=== PATIENT | male | born 1965 | race Caucasian/White ===

== ENCOUNTER 2017-03-03 07:35 | Emergency (ER) | payer SELFPAY ==
[~2017-03-03] VITALS: Ht 180.3 cm; Wt 91.0 kg
[~2017-03-03 07:35] MED LIST: LORTA5 PO; Z.0.NO CURRENT MEDS
[2017-03-03 07:36] VITALS: BP 133/94; PULSE 113; RESP 18; TEMP 97.8; O2SAT 97
[2017-03-03] MEDS ORDERED: LISI10TA3 PO ×2 (07:59→09:16)
[2017-03-03] MEDS ORDERED: SODIUM CHLOR 0.9% 1000 ML INJ 1,000 ML IV SCH (08:08)
--- NOTE | 2017-03-03 08:12 | PD ---
HPI Chief Complaint: Abdominal Pain Time Seen by Provider: 08:03 Travel History International Travel<30 days: No Contact w/Intl Traveler<30days: No Traveled to known affect area: No History of Present Illness HPI The patient is a 52-year-old male who presents emergency department for multiple complaints. The patient states he has a history of hypertension and has been off of his lisinopril 10 mg daily for several weeks, is requesting a refill of his lisinopril. The patient also states that he has had a rash to the lower extremities from the knees inferiorly as well as the arms from the elbows distally that is pruritic. The patient has been applying over-the- counter Benadryl ointment without any alleviation of his symptoms. The patient does have a history of similar rash in the past which resolved with steroids. He denies any ingestion of any new medications, however, states he makes the rash worse. 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 He denies any nausea or vomiting, states his pain is improving. He denies any fever, chills, or sweats. Symptoms are moderate, alleviated in the past with steroids , and not alleviated with [id number] Benadryl cream. PFSH Past Medical History Cancer: Yes (leukemia) Cardiovascular Problems: Yes High Cholesterol: Yes Diminished Hearing: No Headaches: Yes Hypertension: Yes Neurologic: Yes (NEUROPATHY ) Respiratory: Yes (PNEUMOTHORAX ) Sleep Apnea: Yes (CPAP ) Past Surgical History Other Surgery: Yes (R chest tube placement ) Social History Alcohol Use: Yes (occas) Tobacco Use: Yes (1 pack /week) Substance Use: Yes (Marijuana ) Allergies-Medications (Allergen,Severity, Reaction): Coded Allergies: No Known Allergies (Unverified , 03/03/17) Reported Meds & Prescriptions Reported Meds & Active Scripts Active Reported Lisinopril 10 Mg Tab 10 Mg PO DAILY Review of Systems Except as stated in HPI: all other systems reviewed are Neg General / Constitutional: No: Fever HENT: No: Headaches Cardiovascular: No: Chest Pain or Discomfort Gastrointestinal: Positive: Abdominal Pain, No: Nausea, Vomiting Genitourinary: No: Dysuria Musculoskeletal: No: Myalgias, Arthralgias Skin: Positive Rash, Positive Itching Neurologic: No: Dizziness Physical Exam Narrative GENERAL: Awake, alert, pleasant 52-year-old male who appears his stated age and is in no acute respiratory distress. SKIN: Focused skin assessment warm/dry. The patient has a vesicular rash as located from the knees inferiorly and over the extensor surface of the forearms bilateral. No visible involvement of the face, abdomen, or back. HEAD: Atraumatic. Normocephalic. EYES: Pupils equal and round. No scleral icterus. No injection or drainage. ENT: No nasal bleeding or discharge. Mucous membranes pink and moist. NECK: Trachea midline. No JVD. CARDIOVASCULAR: Regular rate and rhythm. No murmur appreciated. RESPIRATORY: No accessory muscle use. Clear to auscultation. Breath sounds equal bilaterally. GASTROINTESTINAL: Abdomen soft, non-tender, nondistended. No rebound tenderness. Negative Rovsing's. Negative Hoover's. MUSCULOSKELETAL: No obvious deformities. No clubbing. No cyanosis. No edema. NEUROLOGICAL: Awake and alert. No obvious cranial nerve deficits. Motor grossly within normal limits. Normal speech. PSYCHIATRIC: Appropriate mood and affect; insight and judgment normal. Data Data Last Documented VS Vital Signs Date Time Temp Pulse Resp B/P Pulse Ox O2 Delivery O2 Flow Rate FiO2 03/03/17 07:36 97.8 113 18 133/94 97 Orders Complete Blood Count With Diff (03/03/17 08:08) Comprehensive Metabolic Panel (03/03/17 08:08) Lipase (03/03/17 08:08) Iv Access Insert/Monitor (03/03/17 08:08) Ecg Monitoring (03/03/17 08:08) Oximetry (03/03/17 08:08) Sodium Chlor 0.9% 1000 Ml Inj (Ns 1000 M (03/03/17 08:08) Sodium Chloride 0.9% Flush (Ns Flush) (03/03/17 08:15) Methylprednisolone So Succ Inj (Solumedr (03/03/17 08:15) Diphenhydramine Inj (Benadryl Inj) (03/03/17 08:15) Labs Laboratory Tests Test 03/03/17 08:25 White Blood Count 5.1 TH/MM3 Red Blood Count 3.82 MIL/MM3 Hemoglobin 13.1 GM/DL Hematocrit 38.1 % Mean Corpuscular Volume 99.7 FL Mean Corpuscular Hemoglobin 34.3 PG Mean Corpuscular Hemoglobin 34.4 % Concent Red Cell Distribution Width 15.7 % Platelet Count 249 TH/MM3 Mean Platelet Volume 7.9 FL Neutrophils (%) (Auto) 68.5 % Lymphocytes (%) (Auto) 20.7 % Monocytes (%) (Auto) 7.1 % Eosinophils (%) (Auto) 2.6 % Basophils (%) (Auto) 1.1 % Neutrophils # (Auto) 3.5 TH/MM3 Lymphocytes # (Auto) 1.1 TH/MM3 Monocytes # (Auto) 0.4 TH/MM3 Eosinophils # (Auto) 0.1 TH/MM3 Basophils # (Auto) 0.1 TH/MM3 CBC Comment DIFF FINAL Differential Comment Sodium Level 135 MEQ/L Potassium Level 4.2 MEQ/L Chloride Level 102 MEQ/L Carbon Dioxide Level 24.7 MEQ/L Anion Gap 8 MEQ/L Blood Urea Nitrogen 16 MG/DL Creatinine 1.21 MG/DL Estimat Glomerular Filtration 63 ML/MIN Rate Random Glucose 108 MG/DL Calcium Level 8.7 MG/DL Total Bilirubin 0.3 MG/DL Aspartate Amino Transf 33 U/L (AST/SGOT) Alanine Aminotransferase 56 U/L (ALT/SGPT) Alkaline Phosphatase 72 U/L Total Protein 7.6 GM/DL Albumin 3.7 GM/DL Lipase 110 U/L MDM Medical Decision Making Medical Screen Exam Complete: Yes Emergency Medical Condition: Yes Medical Record Reviewed: Yes Interpretation(s) Laboratory Tests Test 03/03/17 08:25 White Blood Count 5.1 TH/MM3 Red Blood Count 3.82 MIL/MM3 Hemoglobin 13.1 GM/DL Hematocrit 38.1 % Mean Corpuscular Volume 99.7 FL Mean Corpuscular Hemoglobin 34.3 PG Mean Corpuscular Hemoglobin 34.4 % Concent Red Cell Distribution Width 15.7 % Platelet Count 249 TH/MM3 Mean Platelet Volume 7.9 FL Neutrophils (%) (Auto) 68.5 % Lymphocytes (%) (Auto) 20.7 % Monocytes (%) (Auto) 7.1 % Eosinophils (%) (Auto) 2.6 % Basophils (%) (Auto) 1.1 % Neutrophils # (Auto) 3.5 TH/MM3 Lymphocytes # (Auto) 1.1 TH/MM3 Monocytes # (Auto) 0.4 TH/MM3 Eosinophils # (Auto) 0.1 TH/MM3 Basophils # (Auto) 0.1 TH/MM3 CBC Comment DIFF FINAL Differential Comment Sodium Level 135 MEQ/L Potassium Level 4.2 MEQ/L Chloride Level 102 MEQ/L Carbon Dioxide Level 24.7 MEQ/L Anion Gap 8 MEQ/L Blood Urea Nitrogen 16 MG/DL Creatinine 1.21 MG/DL Estimat Glomerular Filtration 63 ML/MIN Rate Random Glucose 108 MG/DL Calcium Level 8.7 MG/DL Total Bilirubin 0.3 MG/DL Aspartate Amino Transf 33 U/L (AST/SGOT) Alanine Aminotransferase 56 U/L (ALT/SGPT) Alkaline Phosphatase 72 U/L Total Protein 7.6 GM/DL Albumin 3.7 GM/DL Lipase 110 U/L Differential Diagnosis Differential diagnosis includes dermatitis, allergic reaction, heat rash, chronic abdominal pain, appendicitis, nephrolithiasis, atypical pancreatitis, chronic hypertension. Narrative Course IV was established, labs are drawn and sent, and the patient was placed on cardiac telemetry monitoring and continuous pulse oximetry monitoring. The patient was administered Solu-Medrol 125 mg intravenously and Benadryl 25 mg intravenously. Patient was also administered 1 L of IV fluids. The patient's abdominal labs are unremarkable. The patient was reevaluated at 9:13 AM, his symptoms had improved. I will write for the patient's lisinopril, Medrol Dosepak, and Benadryl. He is advised to follow-up with his primary physician and return if symptoms worsen or progress. Diagnosis Primary Impression: Dermatitis Additional Impressions: Hypertension Qualified Code: I10 - Essential hypertension Chronic abdominal pain Patient Instructions: General Instructions Additional Instructions: Medications as directed. Follow-up with a primary physician. Return if symptoms worsen or progress. Med/Other Pt SpecificInfo: Prescription(s) given Scripts Diphenhydramine 25 Mg Cap25 Mg PO Q6H PRN (ITCHING) #20 CAP Ref 0 Prov:Mathieu Robles MD 03/03/17 Methylprednisolone Dosepak (Medrol Dosepak)4 Mg Dspk4 Mg PO DIRECTED #1 DSPK Ref 0 Per Pharmacist direction Prov:Mathieu Robles MD 03/03/17 Lisinopril 10 Mg Tab10 Mg PO DAILY #30 TAB Ref 2 Prov:Mathieu Robles MD 03/03/17 Disposition: 01 DISCHARGE HOME Condition: Stable Mathieu Robles MD Mar 03, 2017 08:12
[2017-03-03] MEDS ORDERED: methylPREDNISolone SOD SUCC 125 MG/2 ML VIAL IV PUSH ONE (08:15)
[2017-03-03] MEDS ORDERED: diphenhydrAMINE HCL 50 MG/ML VIAL IV PUSH ONE (08:15)
[2017-03-03] MEDS ORDERED: SODIUM CHLORIDE 0.9% FLUSH 10 ML FLUSH IV FLUSH PRN (08:15)
[2017-03-03 08:45] LABS: AUTOMATED NEUTROPHIL # 3.5 TH/MM3 (1.8-7.7); BASOPHIL # 0.1 TH/MM3 (0-0.2); BASOPHIL % 1.1 % (0.0-2.0); EOSINOPHIL # 0.1 TH/MM3 (0-0.4); EOSINOPHIL % 2.6 % (0.0-4.0); HEMATOCRIT 38.1 % (39.0-51.0); HEMO FLAGS DIFF FINAL; LYMPH % 20.7 % (9.0-44.0); LYMPHOCYTE # 1.1 TH/MM3 (1.0-4.8); MEAN CELL VOLUME 99.7 FL (80.0-100.0); MEAN CORPUSCULAR HEMOGLOBIN 34.3 PG (27.0-34.0); MEAN CORPUSCULAR HGB CONC 34.4 % (32.0-36.0); MONO % 7.1 % (0.0-8.0); NEUT % 68.5 % (16.0-70.0); PLATELET COUNT 249 TH/MM3 (150-450); RED BLOOD COUNT 3.82 MIL/MM3 (4.50-5.90); RED CELL DISTRIBUTION WIDTH 15.7 % (11.6-17.2); WHITE BLOOD COUNT 5.1 TH/MM3 (4.0-11.0)
[2017-03-03 09:00] LABS: ANION GAP 8 MEQ/L (5-15); AST (GOT) 33 U/L (15-37); BICARBONATE 24.7 MEQ/L (21.0-32.0); BLOOD UREA NITROGEN 16 MG/DL (7-18); CHLORIDE 102 MEQ/L (98-107); GLOMERULAR FILTRATION RATE 63 ML/MIN (>89); POTASSIUM 4.2 MEQ/L (3.5-5.1); SODIUM (NA) 135 MEQ/L (136-145)
[2017-03-03 09:01] LABS: ALT (GPT) 56 U/L (12-78)
[2017-03-03 09:03] LABS: ALKALINE PHOSPHATASE 72 U/L (45-117); TOTAL BILIRUBIN ADULT 0.3 MG/DL (0.2-1.0)
[2017-03-03 09:15] VITALS: BP 173/94; PULSE 91; RESP 18; O2SAT 98
[2017-03-03] MEDS ORDERED: MEDR4PAK PO (09:16)
[2017-03-03] MEDS ORDERED: DIPH25CA PO (09:16)
== END 2017-03-03 09:40 | disposition home or self-care (01) ==
LOC: NEPE 07:35
DX: L30.9 Dermatitis, unspecified (principal); I10 Essential (primary) hypertension; R10.31 Right lower quadrant pain; G89.29 Other chronic pain; C95.91 Leukemia, unspecified, in remission; E78.00 Pure hypercholesterolemia, unspecified; Z72.0 Tobacco use; Z86.79 Personal history of other diseases of the circulatory system; Z86.69 Personal history of other diseases of the nervous system and sense organs; Z87.09 Personal history of other diseases of the respiratory system
CPT/HCPCS: 80053; 83690; 85025; 96374; 96375; 99284; J1200; J2930; J7030

== ENCOUNTER 2018-05-26 08:28 | Inpatient (IN) ==
[2018-05-26] MEDS ORDERED: Morphine Inj 4 MG/ML Vial IV.PUSH ONE ×2 (08:57→12:20)
[2018-05-26 09:39] LABS: Baso # (Auto) 0.1 th/mm3 (0.0-0.2); Baso % (Auto) 0.8 % (0.0-2.0); Eos % (Auto) 0.4 % (0.0-4.0); Hematocrit 36.1 % (39.0-51.0); Hemoglobin 12.3 gm/dL (13.0-17.0); Lymph # (Auto) 1.2 th/mm3 (1.0-4.8); Lymph % (Auto) 14.5 % (9.0-44.0); Mean Corpuscular HGB Conc 34.1 % (32.0-36.0); Mean Corpuscular Hemoglobin 36.1 pg (27.0-34.0); Mean Corpuscular Volume 105.8 fL (80.0-100.0); Mean Platelet Volume 10.2 fL (7.0-11.0); Mono # (Auto) 0.5 th/mm3 (0.0-0.9); Mono % (Auto) 6.3 % (0.0-8.0); Neut # (Auto) 6.4 th/mm3 (1.8-7.7); Platelet Count 143 th/mm3 (150-450); Red Blood Count 3.42 mil/mm3 (4.50-5.90); Red Cell Distribution Width 17.1 % (11.6-17.2); White Blood Count 8.2 th/mm3 (4.0-11.0)
[2018-05-26 09:58] LABS: Albumin 2.4 g/dL (3.4-5.0); Anion Gap 15 meq/L (5-15); Blood Urea Nitrogen 47 mg/dL (7-18); Calcium 7.9 mg/dL (8.5-10.1); Chloride 91 meq/L (98-107); Glomerular Filtration Rate 12 mL/min (>89); Glucose,Random 99 mg/dL (74-106); Sodium 126 meq/L (136-145)
[2018-05-26] MEDS ORDERED: HYDROmorphone PF Inj 2 MG/ML Vial IV.PUSH ONE (09:59)
--- NOTE | 2018-05-26 10:11 | XR ---
EXAM DATE: 05/26/2018 9:30 AM EDT AGE/SEX: 53 years / Male INDICATIONS: Internal painful hemorrhoids, . CLINICAL DATA: This is the patient's initial encounter. Patient reports that signs and symptoms have been present for 2 days and indicates a pain score of 10/10. MEDICAL/SURGICAL HISTORY: . . COMPARISON: No prior exams available for comparison. FINDINGS: Multiple AP views of the chest demonstrate the lungs to be symmetrically aerated without evidence of mass, infiltrate or effusion. The cardiomediastinal contours are unremarkable. Old left posterior si xth through eighth rib fractures.. CONCLUSION: No acute cardiopulmonary disease. Electronically signed by: Man Oscar MD 05/26/2018 10:09 AM EDT
[2018-05-26 10:15] LABS: Alanine Aminotransferase 1105 U/L (12-78); Alkaline Phosphatase 476 U/L (45-117); Aspartate Aminotransferase 4041 U/L (15-37)
[2018-05-26] MEDS ORDERED: Sod Chloride 0.9% Inj 1,000 ML IV.SIG ONE (10:55)
--- NOTE | 2018-05-26 11:17 | CT ---
EXAM DATE: 05/26/2018 11:12 AM EDT AGE/SEX: 53 years / Male INDICATIONS: Nausea, vomiting. Proctalgia. CLINICAL DATA: This is the patient's initial encounter. Patient reports that signs and symptoms have been present for 1 day and indicates a pain score of 3/10. MEDICAL/SURGICAL HISTORY: Diverticulosis. Hyperparathyroidism. Leukemia. Enlarged prostate . Hernia repair RADIATION DOSE: 11.71 CTDI (mGy) COMPARISON: [facility] [place], CT ABDOMEN & PELVIS W/O CONTRAST, 05/19/2018. . TECHNIQUE: Multiple contiguous axial images were obtained through the abdomen. Images were obtained using multiple row detector helical technique. Using automated exposure control and adjustment of the mA and/or kV according to patient size, radiation dose was kept as low as reasonably achievable to o btain optimal diagnostic quality images. DICOM format image data is available electronically for rev iew and comparison. FINDINGS: Lung bases are clear. Osseous structures are intact. Diffuse episodic calcification of the aorta and iliac vessels are seen and there is coronary artery calcification. Hepatomegaly and diffuse decreased density of the liver characteristic of steatosis. Gallbladder, spleen, pancreas, adrenal glands, lef t kidney are unremarkable. Right renal calculus, nonobstructing at the midpole. No adenopathy. Urinar y bladder and prostate are unremarkable. There is bowel wall thickening and mild pericolonic inflamma tory stranding of the sigmoid colon extending over 10 cm. There is severe diverticulosis of the sigmo id and descending colon. CONCLUSION: 1. Sigmoid diverticulitis. 2. Hepatic steatosis. 3. Right renal calculus. Electronically signed by: Jordy Grove MD 05/26/2018 11:16 AM EDT
[2018-05-26] MEDS ORDERED: Ciprofloxacin 400 MG/200 ML 400 MG/200 ML PIGGYBACK IV.SIG ONE (12:42)
[2018-05-26] MEDS ORDERED: Bisacodyl 10 MG Supp RECTAL PRN (12:43)
[2018-05-26] MEDS ORDERED: Acetaminophen 325 MG Tablet PO PRN (12:43)
[2018-05-26] MEDS ORDERED: Morphine Inj 4 MG/ML Vial IV.PUSH PRN ×2 (12:46)
[2018-05-26] MEDS ORDERED: Naloxone Inj 0.4 MG/ML Vial IV.PUSH PRN (12:46)
[2018-05-26] MEDS ORDERED: Morphine Sulfate Inj 2 MG/ML Vial IV.PUSH PRN (12:46)
[2018-05-26] MEDS ORDERED: Haloperidol Inj 5 MG/ML Ampul IV.PUSH PRN (12:52)
[2018-05-26] MEDS ORDERED: LORazepam 1 MG Tablet PO PRN (12:52)
--- NOTE | 2018-05-26 13:08 | ECG ---
Date Performed: 05/26/2018 Time Performed: 09:13:39 PTAGE: 53 years EKG: ATRIAL FIBRILLATION WITH RAPID VENTRICULAR RESPONSE POSSIBLE RIGHT VENTRICULAR HYPERTROPHY SEPTAL MYOCARDIAL INFARCTION ABNORMAL ECG NO PREVIOUS TRACING DOCTOR: Naseem Velazquez Interpretating Date/Time 05/26/2018 13:05:40
[2018-05-26] MEDS ORDERED: Sod Chloride 0.9% Inj 1,000 ML IV.CONT SCH (14:00)
--- NOTE | 2018-05-26 14:03 | US ---
EXAM DATE: 05/26/2018 1:48 PM EDT AGE/SEX: 53 years / Male INDICATIONS: Increased Bun and Creatinine. CLINICAL DATA: This is the patient's initial encounter. Patient reports that signs and symptoms have been present for 1 day and indicates a pain score of 0/10. MEDICAL/SURGICAL HISTORY: . ETOH. Diverticulosis. Enlarged prostate. Hemorrhoids. HTN. Hype rcholesterolemia. Leukemia. . Hernia repair. COMPARISON: [facility] – [place], CT ABDOMEN & PELVIS W/O CONTRAST, 05/26/2018. . MEASUREMENTS: Right Kidney:__10.2 x 5.7 x 6.5 cm Left Kidney:__11.6 x 5.5 x 6.0 cm FINDINGS: Right Kidney: The kidney is normal in size and shape. Normal echotexture. No hydronephrosis. No corti cordelia thinning. 6 mm echogenic focus with shadowing consistent with a stone within the midpole. Left Kidney: Normal echotexture and cortical thickness. No mass or hydronephrosis. Bladder: The bladder is totally decompressed and not well evaluated.. Other: None. CONCLUSION: 1. Small nonobstructing right renal stone. Otherwise, unremarkable exam. Electronically signed by: Man Oscar MD 05/26/2018 2:02 PM EDT
--- NOTE | 2018-05-26 14:05 | ED ---
HPI General Chief complaint: Nausea/Vomiting/Diarrhea Stated complaint: Pain Time Seen by Provider: 05/26/18 08:43 Source: patient Mode of arrival: ambulatory Limitations: no limitations History of Present Illness HPI Narrative: Patient is a 53-year-old male presented with complaint of nausea vomiting diarrhea as well as rectal pain due to hemorrhoids. He stated that at this has been happening for the past couple of days. He is also a daily drinker. He was seen on 05/19/18 for sigmoid diverticulitis., He is a smoker and still drinks daily. He has history of BPH, leukemia, HLD, HTN. The patient is a daily drinker. MD complaint: nausea, vomiting, diarrhea and abdominal pain Onset (ago): week(s) (1) Associated Abdominal Pain: Yes Location of pain: other (rectal) Severity: severe Severity scale (1-10): 10 Quality: sharp Pain Consistency: constant Relieving factors: none Context: other (alcohol abuse) Related Data Home Medications Medication Instructions Recorded Confirmed atorvastatin 80 mg PO DAILY 04/30/18 05/26/18 lisinopril 10 mg PO DAILY 04/30/18 05/26/18 Allergies Allergy/AdvReac Type Severity Reaction Status Date / Time No Known Allergies Allergy Unverified 05/26/18 08:51 Review of Systems ROS: all other systems reviewed are negative Musculoskeletal Comments: Swelling of both his lower legs PMFSH Medical History Medical History Hairy cell leukemia (Acute) Alcohol abuse (Acute) Diverticulosis (Acute) Enlarged prostate (Acute) HTN (hypertension) (Acute) Hemorrhoids (Acute) Hypercholesterolemia (Acute) Leukemia (Acute) Sleep apnea (Acute) Smoker (Acute) Surgical History Surgical History History of hernia repair (Acute) Family History Family History Other Family history of hypertension Social History Social History Substance History: No History of Abuse Second Hand Smoke Exposure: No Smoking Status: Current every day smoker Tobacco Type: Cigarettes How Often Do You Have a Drink Containing Alcohol: 2 to 3 times a week Hx Recent Travel: No Recent Travel in [facility] within the Last 8 Weeks: No Recent Out of Country Travel within the Last 8 Weeks: No Immunization History Tetanus Immunization: Unsure Hx Influenza Vaccine This Season: No Exam Narrative Exam Narrative: GENERAL: Alert and oriented in moderate distress from pain. Thrashing around in the bed holding his rectum SKIN: Focused skin assessment warm/dry. HEAD: Atraumatic. Normocephalic. EYES: Pupils equal and round. No scleral icterus. No injection or drainage. ENT: No nasal bleeding or discharge. Mucous membranes pink and moist. NECK: Trachea midline. No JVD. CARDIOVASCULAR: Irregularly irregular heart rate suggestive of atrial fibrillation. No murmur appreciated. RESPIRATORY: No accessory muscle use. Clear to auscultation. Breath sounds equal bilaterally. GASTROINTESTINAL: Abdomen soft, non-tender, nondistended. Hepatic and splenic margins not palpable. Rectal exam did not reveal any external hemorrhoids. Patient very tender to palpation. He did have stool around the rectum that was evaluated for occult blood and it was negative. Unable to do a complete rectal exam patient was not able to tolerate. MUSCULOSKELETAL: No obvious deformities. No clubbing. No cyanosis. Bilateral 2 + pitting edema in lower extremities stops at the knees. NEUROLOGICAL: Awake and alert. No obvious cranial nerve deficits. Motor grossly within normal limits. Normal speech. PSYCHIATRIC: Appropriate mood and affect; insight and judgment normal. Course Hospital Course: Patient received several doses of IV narcotics for analgesia. He did not appear to have any external hemorrhoids that were thrombosed. His all occult was negative. We did have positive CT for diverticulitis acute for which he received Cipro and Flagyl IV. Markedly elevated LFTs as well as kidney function suggestive of AK I for which he has been hydrated. We suspect that all this secondary to alcohol abuse poor nutrition noncompliance. Tox screen recently was negative and was not repeated. Supposed to the patient had a renal ultrasound that that was unremarkable a few days ago. Initial Documented Vital Signs Temperature 97.2 F L 05/26/18 08:31 Pulse Rate 109 H 05/26/18 08:31 Respiratory Rate 18 05/26/18 08:31 Blood Pressure 106/62 05/26/18 08:31 Pulse Oximetry 98 05/26/18 08:31 Last Documented Vital Signs Temperature 98.2 F 05/26/18 11:26 Pulse Rate 107 H 05/26/18 11:26 Respiratory Rate 22 05/26/18 12:59 Blood Pressure 114/60 05/26/18 11:26 Pulse Oximetry 99 05/26/18 11:26 Medical Decision Making MDM Narrative Medical decision making narrative: Patient with sigmoid diverticulitis, markedly elevated LFTs and renal failure with elevated creatinine. In addition the patient was in new onset atrial fibrillation. We will admitted for antibiotic treatment for his diverticulitis as well as hydration for his kidney failure. He had an ultrasound recently and was told that everything was negative. He has elevated troponin without any complaint of chest pain and EKG not suggestive of acute ischemia likely secondary to his renal failure. Patient did not receive any antidysrhythmic since he was able to maintain heart rate between the low 90s in the low 100s. Remained hemodynamically stable and not septic. Denied any chest pain Medical Screen Exam Complete: Yes Emergency Medical Condition: Yes Medical Records Medical records reviewed: Yes I reviewed the patient's medical records. Lab Data Lab results reviewed: Yes I reviewed the patient's lab results. Result diagrams: 05/26/18 09:03 05/26/18 09:03 Lab Results 05/26/18 05/26/18 05/26/18 Range/Units 09:03 09:03 13:02 WBC 8.2 (4.0-11.0) th/mm3 RBC 3.42 L (4.50-5.90) mil/mm3 Hgb 12.3 L (13.0-17.0) gm/dL Hct 36.1 L (39.0-51.0) % MCV 105.8 H (80.0-100.0) fL MCH 36.1 H (27.0-34.0) pg MCHC 34.1 (32.0-36.0) % RDW 17.1 (11.6-17.2) % Plt Count 143 L (150-450) th/mm3 MPV 10.2 (7.0-11.0) fL Neut % (Auto) 78.0 H (16.0-70.0) % Lymph % (Auto) 14.5 (9.0-44.0) % [place] % (Auto) 6.3 (0.0-8.0) % Eos % (Auto) 0.4 (0.0-4.0) % Baso % (Auto) 0.8 (0.0-2.0) % Neut # (Auto) 6.4 (1.8-7.7) th/mm3 Lymph # (Auto) 1.2 (1.0-4.8) th/mm3 [place] # (Auto) 0.5 (0.0-0.9) th/mm3 Eos # (Auto) 0.0 (0.0-0.4) th/mm3 Baso # (Auto) 0.1 (0.0-0.2) th/mm3 WBC Differential . Differential Comment Auto diff final Sodium 126 L (136-145) meq/L Potassium 5.0 (3.5-5.1) meq/L Chloride 91 L (98-107) meq/L Carbon Dioxide 20.0 L (21.0-32.0) meq/L Anion Gap 15 (5-15) meq/L BUN 47 H (7-18) mg/dL Creatinine 5.23 H (0.60-1.30) mg/dL Estimated GFR 12 L (>89) mL/min Random Glucose 99 (74-106) mg/dL Calcium 7.9 L (8.5-10.1) mg/dL Total Bilirubin 6.6 H (0.2-1.0) mg/dL AST 4041 H (15-37) U/L ALT 1105 H (12-78) U/L Alkaline Phosphatase 476 H (45-117) U/L Total Creatine Kinase 660459 H (39-308) U/L CK-MB (CK-2) 155.6 H (0.5-3.6) ng/mL CK-MB (CK-2) % 0.1 (0.0-4.0) % Troponin I 0.20 H 0.21 H (0.02-0.05) ng/mL B-Natriuretic Peptide (0-100) pg/mL Total Protein 7.0 (6.4-8.2) g/dL Albumin 2.4 L (3.4-5.0) g/dL TSH 3.300 (0.358-3.740) uIU/mL Serum Alcohol Less than 3 (0-5) mg/dL 05/26/18 Range/Units 13:09 WBC (4.0-11.0) th/mm3 RBC (4.50-5.90) mil/mm3 Hgb (13.0-17.0) gm/dL Hct (39.0-51.0) % MCV (80.0-100.0) fL MCH (27.0-34.0) pg MCHC (32.0-36.0) % RDW (11.6-17.2) % Plt Count (150-450) th/mm3 MPV (7.0-11.0) fL Neut % (Auto) (16.0-70.0) % Lymph % (Auto) (9.0-44.0) % [place] % (Auto) (0.0-8.0) % Eos % (Auto) (0.0-4.0) % Baso % (Auto) (0.0-2.0) % Neut # (Auto) (1.8-7.7) th/mm3 Lymph # (Auto) (1.0-4.8) th/mm3 [place] # (Auto) (0.0-0.9) th/mm3 Eos # (Auto) (0.0-0.4) th/mm3 Baso # (Auto) (0.0-0.2) th/mm3 WBC Differential Differential Comment Sodium (136-145) meq/L Potassium (3.5-5.1) meq/L Chloride (98-107) meq/L Carbon Dioxide (21.0-32.0) meq/L Anion Gap (5-15) meq/L BUN (7-18) mg/dL Creatinine (0.60-1.30) mg/dL Estimated GFR (>89) mL/min Random Glucose (74-106) mg/dL Calcium (8.5-10.1) mg/dL Total Bilirubin (0.2-1.0) mg/dL AST (15-37) U/L ALT (12-78) U/L Alkaline Phosphatase (45-117) U/L Total Creatine Kinase (39-308) U/L CK-MB (CK-2) (0.5-3.6) ng/mL CK-MB (CK-2) % (0.0-4.0) % Troponin I (0.02-0.05) ng/mL B-Natriuretic Peptide 60 (0-100) pg/mL Total Protein (6.4-8.2) g/dL Albumin (3.4-5.0) g/dL TSH (0.358-3.740) uIU/mL Serum Alcohol (0-5) mg/dL Imaging Data Radiologist's impression: Abdomen/Bladder Ultrasound 05/26/18 00:00 CONCLUSION: 1. Small nonobstructing right renal stone. Otherwise, unremarkable exam. Chest X-Ray 05/26/18 08:55 CONCLUSION: No acute cardiopulmonary disease. Abdomen/Pelvis CT 05/26/18 10:54 CONCLUSION: 1. Sigmoid diverticulitis. 2. Hepatic steatosis. 3. Right renal calculus. ECG Data Attestation: I personally reviewed and interpreted this ECG as follows: Interpretation: Atrial fibrillation with RVR rate of 120, right ventricular hypertrophy normal axis. No STEMI QTc 381 Discharge Plan Discharge Disposition Patient Disposition: 30 Still Patient Discharge Condition Condition: Serious Discharge Details Diagnosis: Diverticulitis, Acute renal failure, Transaminitis, Alcohol abuse, Elevated troponin Physicians Team ED Provider: Yung Moore Attending Provider: Moise Mazariegos Other Providers: Don Dior ; Emre Velazquez Discharge Interventions Interventions: ED Discharge Assessment Last Done: 05/26/18 15:07 Vital Signs Last Done: 05/26/18 11:26 Status ED Status: Left Department Discharge Information Discharge Date/Time: 05/26/18 15:08
[2018-05-26 14:15] LABS: Troponin I 0.21 ng/mL (0.02-0.05)
[2018-05-26] MEDS: Multivitamin/Minerals Therapeutic Tablet PO SCH (15:40)
[2018-05-26] MEDS: Folic Acid 1 MG Tablet PO SCH (15:40)
--- NOTE | 2018-05-26 16:03 | P.HPIM ---
History of Present Illness Service: [facility] Primary Care Physician: [facility] Chief Complaint: NAUSEA AND VOMITING AND DIARRHEA History of Present Illness: Patient is a 53-year-old male who presented to the hospital with complaints of nausea and vomiting and diarrhea as well as rectal pain due to his hemorrhoids. He states this been happening for the past couple of days to a week. He is also a daily alcohol drinker. Was seen here on May 19 for sigmoid diverticulitis. He is a smoker and drinks daily. 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 Was also found to have elevated LFTs and to be in renal failure. Therefore patient will be admitted and will be treated for the diverticulitis, the renal failure, and the rectal pain. His lisinopril and Lipitor will both be held. We will consult nephrology. Patient is also noted to have elevated troponins. Suspect secondary to the renal failure. But will consult cardiology and get an echocardiogram. We will also trend troponins and cardiac enzymes Has already had an ultrasound of his kidneys bilaterally Inpatient Certification: I certify that the inpatient services were ordered in accordance with Medicare regulations governing the order. This includes certification that hospital inpatient services are reasonable and necessary and in the case of services not specified as inpatient-only under 42 CFR 419.22(n), that they are appropriately provided as inpatient services in accordance to with the 2-midnight benchmark under 43 CFR 412.3(e) Estimated Total Length of Stay (Days): 5 Plans for Post Hospital Care: Not yet determined Review of Systems All other systems reviewed negative except as stated in HPI [facility] - History History Provided By: Patient - Medical History Medical History: Medical History (Last Updated 05/26/18 @ 15:50 by Moise Mazariegos DO) Hairy cell leukemia Alcohol abuse Diverticulosis Enlarged prostate HTN (hypertension) Hemorrhoids Hypercholesterolemia Leukemia Sleep apnea Smoker - Surgical History Surgical History: Surgical History (Last Reviewed 05/26/18 @ 14:02 by Yung Moore DO) History of hernia repair - Family History Family History: Family History (Last Updated 05/26/18 @ 15:50 by Moise Mazariegos DO) Other Family history of hypertension - Tobacco History Second Hand Smoke Exposure: No Tobacco Use In Past 30 Days: Yes Smoking Status: Current every day smoker Tobacco Type: Cigarettes - Alcohol History How Often Do You Have a Drink Containing Alcohol: 2 to 3 times a week - Substance Use History Substance History: No History of Abuse - Travel History History of Recent Travel: No Recent Travel in the [place] Within the Last 8 Weeks: No Recent Travel Out of the Country Within the Last 8 Weeks: No - Immunization History Tetanus Immunization: Unsure Hx Influenza Vaccine This Season: No Medications and Allergies Active Medications: Active Medications Acetaminophen (Tylenol) 650 mg PO Q4H PRN PRN Reason: Temp > 100.4 Al Hydroxide/Mg Hydroxide (Milk Of Magnesia Liq) 30 ml PO Q12H PRN PRN Reason: Mild Constipation Bisacodyl (Dulcolax Supp) 10 mg RECTAL DAILY PRN PRN Reason: SEVERE CONSITIPATION Clonidine HCl (Catapres) 0.1 mg PO Q6H PRN PRN Reason: For SBP >/= 180, DBP >/= 100 Flumazenil (Romazecon Inj) 0.2 mg IV.PUSH Q1M PRN PRN Reason: OVERSEDATION Folic Acid (Folic Acid) 1 mg PO DAILY [facility] Stop: 05/31/18 14:59 Last Admin: 05/26/18 15:40 Dose: 1 mg Haloperidol Lactate (Haldol Inj) 1 mg IV.PUSH Q15M PRN PRN Reason: for severe agitation Hydrocortisone Acetate (Hemorrhoidal Hc Supp) 25 mg RECTAL TID [facility]I Sodium Chloride (Ns Inj) 1,000 mls @ 100 mls/hr IV.CONT .Q10H [facility]I Last Admin: 05/26/18 14:26 Dose: 100 mls/hr Ciprofloxacin/Dextrose (Cipro 200 Mg/100 Ml Inj) 200 mg in 100 mls @ 100 mls/ hr IV.SIG Q24H [facility]I Metronidazole/Sodium Chloride (Flagyl 500 Mg Inj) 100 mls @ 100 mls/hr IV.SIG Q8H [facility]I Stop: 06/05/18 21:59 Lactulose (Lactulose Liq) 30 ml PO DAILY PRN PRN Reason: SEVERE CONSITIPATION Lorazepam (Ativan) 1 mg PO Q4H PRN PRN Reason: for CIWA 8-10 Lorazepam (Ativan) 2 mg PO Q2H PRN PRN Reason: for CIWA 11-14 Lorazepam (Ativan Inj) 2 mg IV.PUSH Q2H PRN PRN Reason: for CIWA 11-14 Lorazepam (Ativan Inj) 2 mg IV.PUSH Q1H PRN PRN Reason: for CIWA 15-20 Lorazepam (Ativan Inj) 2 mg IV.PUSH Q15M PRN PRN Reason: for CIWA > 20 Lorazepam (Ativan Inj) 1 mg IV.PUSH Q4H PRN PRN Reason: for CIWA 8-10 Morphine Sulfate (Morphine Inj) 4 mg IV.PUSH Q3H PRN PRN Reason: PAIN 6-10;IF UNABLE TO TAKE PO Morphine Sulfate (Morphine Inj) 4 mg IV.PUSH Q3H PRN PRN Reason: BREAKTHROUGH PAIN Morphine Sulfate (Morphine Inj) 2 mg IV.PUSH Q3H PRN PRN Reason: PAIN 3-5; IF UABLE TO TAKE PO Multivitamins/Minerals (Theragran-M) 1 tab PO DAILY [facility] Stop: 05/31/18 13:59 Last Admin: 05/26/18 15:40 Dose: 1 tab Naloxone HCl (Narcan Inj) 0.4 mg IV.PUSH UNSCH PRN PRN Reason: SEE LABEL COMMENTS Nicotine (Habitrol 14 Mg Patch.24 Hr) 1 patch T-DERMAL DAILY [facility] Last Admin: 05/26/18 15:40 Dose: 1 patch Ondansetron HCl (Zofran Inj) 4 mg IV.PUSH Q6H PRN PRN Reason: NAUSEA OR VOMITING Oxycodone HCl (Roxicodone) 5 mg PO Q4H PRN PRN Reason: PAIN SCALE 3 TO 5 Oxycodone HCl (Roxicodone) 10 mg PO Q4H PRN PRN Reason: PAIN SCALE 6 TO 10 Pantoprazole Sodium (Protonix) 40 mg PO DAILY [facility] Last Admin: 05/26/18 15:39 Dose: 40 mg Patch Removal (Remove Old Patch) 1 each T-DERMAL DAILY [facility] Senna/Docusate Sodium (Najma-Colace) 1 tab PO BID [facility] Sennosides (Senokot) 17.2 mg PO Q12H PRN PRN Reason: Moderate Constipation Thiamine HCl (Vitamin B1) 100 mg PO DAILY [facility] Last Admin: 05/26/18 15:40 Dose: 100 mg Zolpidem Tartrate (Ambien) 5 mg PO HS PRN PRN Reason: INSOMNIA Allergies Allergy/AdvReac Type Severity Reaction Status Date / Time No Known Allergies Allergy Unverified 05/26/18 08:51 Home Medications Medication Instructions Recorded Confirmed Type atorvastatin 80 mg PO DAILY 04/30/18 05/26/18 History lisinopril 10 mg PO DAILY 04/30/18 05/26/18 History Exam Vital signs: Vital Signs 05/26/18 08:31 05/26/18 11:24 05/26/18 11:26 Temperature 97.2 F L 98.2 F Pulse Rate 109 H 107 H Respiratory Rate 18 19 19 Blood Pressure 106/62 114/60 Pulse Oximetry 98 99 05/26/18 12:59 Temperature Pulse Rate Respiratory Rate 22 Blood Pressure Pulse Oximetry Intake & Output 05/25/18 05/26/18 05/26/18 18:59 06:59 18:59 Intake Total 1200 / 1200 Balance 1200 / 1200 Weight 97.522 kg Intake: IV 1200 / 1200 Cipro 400 MG/200 ML Inj 400 mg 200 / 200 In 200 ml @ 200 mls/hr IV.SIG ONCE ONE Rx#:[id number] NS Inj 1,000 ML @ Wide Open IV. 1000 / 1000 SIG BOLUS ONE Rx#:[id number] Narrative: GENERAL: Awake alert and oriented x3 talkative and cooperative SKIN: Warm and dry. HEAD: Atraumatic. Normocephalic. EYES: Pupils equal and round. No scleral icterus. No injection or drainage. EOMI ENT: No nasal bleeding or discharge. Mucous membranes pink and moist. Tongue is midline NECK: Trachea midline. No JVD. Supple CARDIOVASCULAR: Regular rate and rhythm. S1-S2 no S3 or S4 RESPIRATORY: No accessory muscle use. Clear to auscultation. Breath sounds equal bilaterally. GASTROINTESTINAL: Abdomen soft, non-tender, nondistended. Hepatic and splenic margins not palpable. Obese MUSCULOSKELETAL: Extremities without clubbing, cyanosis, or edema. No obvious deformities. NEUROLOGICAL: Awake and alert. No obvious cranial nerve deficits. Motor grossly within normal limits. Five out of 5 muscle strength in the arms and legs. Normal speech. PSYCHIATRIC: Appropriate mood and affect; insight and judgment normal. Results - Labs CBC & Chem 7: 05/26/18 09:03 05/26/18 09:03 Labs: Short CBC 05/26/18 Range/Units 09:03 WBC 8.2 (4.0-11.0) th/mm3 Hgb 12.3 L (13.0-17.0) gm/dL Hct 36.1 L (39.0-51.0) % Plt Count 143 L (150-450) th/mm3 BMP 05/26/18 09:03 Sodium 126 L Potassium 5.0 Chloride 91 L Carbon Dioxide 20.0 L BUN 47 H Creatinine 5.23 H Calcium 7.9 L Cardiac Enzymes 05/26/18 05/26/18 Range/Units 09:03 13:02 Troponin I 0.20 H 0.21 H (0.02-0.05) ng/mL Liver Function 05/26/18 Range/Units 09:03 Total Bilirubin 6.6 H (0.2-1.0) mg/dL AST 4041 H (15-37) U/L ALT 1105 H (12-78) U/L Alkaline Phosphatase 476 H (45-117) U/L Albumin 2.4 L (3.4-5.0) g/dL - Imaging Impressions Abdomen/Bladder Ultrasound 05/26/18 00:00 CONCLUSION: 1. Small nonobstructing right renal stone. Otherwise, unremarkable exam. Chest X-Ray 05/26/18 08:55 CONCLUSION: No acute cardiopulmonary disease. Abdomen/Pelvis CT 05/26/18 10:54 CONCLUSION: 1. Sigmoid diverticulitis. 2. Hepatic steatosis. 3. Right renal calculus. Caprini VTE Risk Assessment Caprini VTE Risk Assessment: Moderate/High Risk (score >= 2) Caprini Risk Assessment Model: Point Value = 1 Point Value = 2 Point Value = 3 Point Value = 5 Age 41-60 Minor surgery BMI > 25 kg/m2 Swollen legs Varicose veins or History of unexplained or recurrent spontaneous Oral contraceptives or hormone replacement Sepsis (< 1 month) Serious lung disease, including pneumonia (< 1 month) Abnormal pulmonary function Acute myocardial infarction Congestive heart failure (< 1 month) History of inflammatory bowel disease Medical patient at bed rest Age 61-74 Arthroscopic surgery Major open surgery (> 45 min) Laparoscopic surgery (> 45 min) Malignancy Confined to bed (> 72 hours) Immobilizing plaster cast Central venous access Age >= 75 History of VTE Family history of VTE Factor V Leiden Prothrombin [id number] Lupus anticoagulant Anticardiolipin antibodies Elevated serum homocysteine Heparin-induced thrombocytopenia Other congenital or acquired thrombophilia Stroke (< 1 month) Elective arthroplasty Hip, pelvis, or leg fracture Acute spinal cord injury (< 1 month) Prophylaxis Regimen: Total Risk Factor Score Risk Level Prophylaxis Regimen 0-1 Low Early ambulation 2 Moderate Order ONE of the following: *Sequential Compression Device (SCD) *Heparin 5000 units SQ BID 3-4 Higher Order ONE of the following medications: *Heparin 5000 units SQ TID *Enoxaparin/Lovenox 40 mg SQ daily (WT < 150 kg, CrCl > 30 mL/min) *Enoxaparin/Lovenox 30 mg SQ daily (WT < 150 kg, CrCl > 10-29 mL/min) *Enoxaparin/Lovenox 30 mg SQ BID (WT < 150 kg, CrCl > 30 mL/min) AND/OR *Sequential Compression Device (SCD) 5 or more Highest Order ONE of the following medications: *Heparin 5000 units SQ TID (Preferred with Epidurals) *Enoxaparin/Lovenox 40 mg SQ daily (WT < 150 kg, CrCl > 30 mL/min) *Enoxaparin/Lovenox 30 mg SQ daily (WT < 150 kg, CrCl > 10-29 mL/min) *Enoxaparin/Lovenox 30 mg SQ BID (WT < 150 kg, CrCl > 30 mL/min) AND *Sequential Compression Device (SCD) Assessment and Plan - Plan Diverticulitis will continue on Cipro 400 mg IV daily due to renal functions and Flagyl 500 mg IV every 8 hours -Pain control with morphine and oxycodone -Clear liquid diet Acute renal failure -Continue on IV fluids -Renal ultrasounds have been done no obstruction -Hold on NEPHROtoxic agents -Nephrology consult -Hold his lisinopril Elevated LFTs -Check hepatitis panel -Possibly due to his excessive amount of alcohol -Hold his Lipitor 80 mg daily Hypertension -Catapres as needed -Obviously hold his lisinopril due to the renal failure Nausea and vomiting -Zofran as needed Hyperlipidemia -hold Lipitor due to elevated LFTs Elevated troponins suspect secondary to renal issues -Consult cardiology -Echocardiogram -Trend troponins and cardiac enzymes Diarrhea and hemorrhoid pain -Continue on Anusol rectal suppositories -Morphine and oxycodone as needed Tobacco abuse recommend smoking cessation with NicoDerm patch Alcohol abuse -Continue on CIWA protocol DVT and GI prophylaxis Code Status: FULL CODE Discussed Condition With: RN AND PT AND ER PHYSICIAN AND NEPHROLOGY Discharge Planning: ONCE RENAL FUNCTIONS AND DIVERTICULITIS IMPROVES
--- NOTE | 2018-05-26 16:09 | MB ---
cc: Don Dior MD DATE: 05/26/2018 HISTORY OF PRESENT ILLNESS: Jovon is a 53-year-old gentleman, who presented to the emergency room with chief complaint of severe rectal pain. He has not been able to sleep for the last 2 days because of this. He otherwise denies any fever, chills, PND, orthopnea, syncope, or dizziness. PAST MEDICAL HISTORY: As per history of present illness. He has a history of alcohol abuse, diverticulosis, enlarged prostate, hemorrhoids, hypertension, hyperlipidemia, leukemia, sleep apnea, tobacco abuse. ALLERGIES: NONE. SOCIAL HISTORY: He smokes every day. Drinks alcohol 2-3 times a week. MEDICATIONS: In the hospital: 1. Ciprofloxacin. 2. Folic acid 1 mg daily. 3. Flagyl. 4. Nicotine patch. 5. Thiamine 100 mg daily. 6. Zolpidem p.r.n. PHYSICAL EXAMINATION: VITAL SIGNS: Pulse 107, temperature 98.2, blood pressure 114/60, respiratory rate 19. GENERAL: He is alert and oriented x3, in no acute distress. NECK: Supple. LABORATORY DATA: White count 8.2, hemoglobin 12.3, hematocrit 36.1, platelet count 143,000. Sodium 126, potassium 5.0, chloride 91, bicarbonate 20.0, BUN 47, creatinine 5.23. AST is 4041, ALT 1105, troponin 0.20 and 0.21. BNP is 60. Toxicology serum alcohol was less than 3. DIAGNOSTIC DATA: His EKG shows A-fib at a rate of 120 beats per minute, anteroseptal Q-waves, and repeat EKG with A-fib at a rate of 114 beats per minute, anteroseptal Q-waves. Ultrasound of the kidney and renal bladder: Small nonobstructing right renal stone. Chest x-ray: No acute cardiopulmonary disease. Abdominopelvic CT: Sigmoid diverticulitis, hepatic steatosis, right renal calculus. DIAGNOSES: 1. Atrial fibrillation with rapid ventricular response. 2. Non-ST elevation myocardial infarction. 3. Acute renal failure. 4. Tobacco abuse. 5. Alcohol abuse. 6. Leukemia. 7. Hyponatremia. 8. Elevated liver enzymes. 9. Hypoalbuminemia. 10. Anemia. 11. Thrombocytopenia. PLAN: The patient is completely asymptomatic from a cardiovascular standpoint. Suspect his troponin elevation is secondary, if anything, possibly related to atrial fibrillation with rapid rate and/or nonspecifically elevated due to acute renal failure. Be very cautious about anticoagulation in the acute setting, given his history of leukemia, thrombocytopenia, anemia, and markedly elevated liver enzymes. Obviously, he needs his liver enzyme elevation worked up. He is also in acute renal failure and Dr. Velazquez has been consulted. We will need to follow his trends and troponin heart rate and blood pressure. MD JARRET Hurt/dang , 03:35 PM , 03:47 PM
[2018-05-26 16:27] LABS: Creatine Kinase 148822 U/L (39-308)
[2018-05-26 16:47] LABS: CKMB Percent 0.1 % (0.0-4.0); Creatine Kinase MB 155.6 ng/mL (0.5-3.6)
--- NOTE | 2018-05-26 16:47 | P.CONNP ---
History of Present Illness Service: Nephrology Consult date: 05/26/18 Reason for Consult: Acute on CKD Primary Care Provider: [facility] Chief Complaint: NAUSEA AND VOMITING AND DIARRHEA History of Present Illness: This is a 53 y/o male with BPH, cigarette smoking, chronic ETOH use, and remote hx of leukemia, who presents for rectal pain, with hx of hemorrhoids. He is in renal failure on arrival. Creatinine is 5.23 today, CO2 20, K 5.0. His CT ( without contrast) showed non obstructing stone. Looking back in 2016, his creatinine was 1.2, then in April of this year it was 1.5-1.6. He says he [place] [facility] [place] [facility], unsure of his baseline. He avoids NSAIDs, but admits to not drinking much fluids aside from "juice". The patient reports daily ETOH use, very dark urine but feels the amount is inadequate. He has yet to urinate here. We were consulted for renal management. He is a full code. Of note he has chronic hyponatremia, today his Na is 126. Review of Systems All other systems reviewed negative except as stated in HPI Comments: rectal pain, blood on toilet paper PMFSH - History History Provided By: Patient - Medical History Medical History: Medical History (Last Updated 05/26/18 @ 15:50 by Moise Mazariegos DO) Hairy cell leukemia Alcohol abuse Diverticulosis Enlarged prostate HTN (hypertension) Hemorrhoids Hypercholesterolemia Leukemia Sleep apnea Smoker - Surgical History Surgical History: Surgical History (Last Reviewed 05/26/18 @ 14:02 by Yung Moore DO) History of hernia repair - Family History Family History: Family History (Last Updated 05/26/18 @ 15:50 by Moise Mazariegos DO) Other Family history of hypertension - Tobacco History Second Hand Smoke Exposure: No Tobacco Use In Past 30 Days: Yes Smoking Status: Current every day smoker Tobacco Type: Cigarettes - Alcohol History How Often Do You Have a Drink Containing Alcohol: 2 to 3 times a week - Substance Use History Substance History: No History of Abuse - Substance Use Type Marijuana Status: Early Remission Route Used: Inhalation Frequency: weekly Reason for Use: Calm Down - Travel History History of Recent Travel: No Recent Travel in the [place] Within the Last 8 Weeks: No Recent Travel Out of the Country Within the Last 8 Weeks: No - Immunization History Tetanus Immunization: Unsure Hx Influenza Vaccine This Season: No Medications and Allergies Active Medications: Active Medications Acetaminophen (Tylenol) 650 mg PO Q4H PRN PRN Reason: Temp > 100.4 Al Hydroxide/Mg Hydroxide (Milk Of Magnesia Liq) 30 ml PO Q12H PRN PRN Reason: Mild Constipation Bisacodyl (Dulcolax Supp) 10 mg RECTAL DAILY PRN PRN Reason: SEVERE CONSITIPATION Clonidine HCl (Catapres) 0.1 mg PO Q6H PRN PRN Reason: For SBP >/= 180, DBP >/= 100 Flumazenil (Romazecon Inj) 0.2 mg IV.PUSH Q1M PRN PRN Reason: OVERSEDATION Folic Acid (Folic Acid) 1 mg PO DAILY [facility] Stop: 05/31/18 14:59 Last Admin: 05/26/18 15:40 Dose: 1 mg Haloperidol Lactate (Haldol Inj) 1 mg IV.PUSH Q15M PRN PRN Reason: for severe agitation Heparin Sodium (Porcine) (Heparin Inj) 5,000 units SQ Q8HR [facility]I Hydrocortisone Acetate (Hemorrhoidal Hc Supp) 25 mg RECTAL TID [facility] Sodium Chloride (Ns Inj) 1,000 mls @ 100 mls/hr IV.CONT .Q10H [facility] Last Admin: 05/26/18 14:26 Dose: 100 mls/hr Ciprofloxacin/Dextrose (Cipro 200 Mg/100 Ml Inj) 200 mg in 100 mls @ 100 mls/ hr IV.SIG Q24H [facility] Metronidazole/Sodium Chloride (Flagyl 500 Mg Inj) 100 mls @ 100 mls/hr IV.SIG Q8H [facility] Stop: 06/05/18 21:59 Sodium Bicarbonate 75 meq/ (Sodium Chloride) 1,000 mls @ 84 mls/hr IV.CONT .[id number] [facility] Lactulose (Lactulose Liq) 30 ml PO DAILY PRN PRN Reason: SEVERE CONSITIPATION Lorazepam (Ativan) 1 mg PO Q4H PRN PRN Reason: for CIWA 8-10 Lorazepam (Ativan) 2 mg PO Q2H PRN PRN Reason: for CIWA 11-14 Lorazepam (Ativan Inj) 2 mg IV.PUSH Q2H PRN PRN Reason: for CIWA 11-14 Lorazepam (Ativan Inj) 2 mg IV.PUSH Q1H PRN PRN Reason: for CIWA 15-20 Lorazepam (Ativan Inj) 2 mg IV.PUSH Q15M PRN PRN Reason: for CIWA > 20 Lorazepam (Ativan Inj) 1 mg IV.PUSH Q4H PRN PRN Reason: for CIWA 8-10 Morphine Sulfate (Morphine Inj) 4 mg IV.PUSH Q3H PRN PRN Reason: PAIN 6-10;IF UNABLE TO TAKE PO Morphine Sulfate (Morphine Inj) 4 mg IV.PUSH Q3H PRN PRN Reason: BREAKTHROUGH PAIN Morphine Sulfate (Morphine Inj) 2 mg IV.PUSH Q3H PRN PRN Reason: PAIN 3-5; IF UABLE TO TAKE PO Multivitamins/Minerals (Theragran-M) 1 tab PO DAILY [facility] Stop: 05/31/18 13:59 Last Admin: 05/26/18 15:40 Dose: 1 tab Naloxone HCl (Narcan Inj) 0.4 mg IV.PUSH UNSCH PRN PRN Reason: SEE LABEL COMMENTS Nicotine (Habitrol 14 Mg Patch.24 Hr) 1 patch T-DERMAL DAILY [facility] Last Admin: 05/26/18 15:40 Dose: 1 patch Ondansetron HCl (Zofran Inj) 4 mg IV.PUSH Q6H PRN PRN Reason: NAUSEA OR VOMITING Oxycodone HCl (Roxicodone) 5 mg PO Q4H PRN PRN Reason: PAIN SCALE 3 TO 5 Oxycodone HCl (Roxicodone) 10 mg PO Q4H PRN PRN Reason: PAIN SCALE 6 TO 10 Last Admin: 05/26/18 15:50 Dose: 10 mg Pantoprazole Sodium (Protonix) 40 mg PO DAILY [facility] Last Admin: 05/26/18 15:39 Dose: 40 mg Patch Removal (Remove Old Patch) 1 each T-DERMAL DAILY [facility] Senna/Docusate Sodium (Najma-Colace) 1 tab PO BID [facility] Sennosides (Senokot) 17.2 mg PO Q12H PRN PRN Reason: Moderate Constipation Thiamine HCl (Vitamin B1) 100 mg PO DAILY [facility] Last Admin: 05/26/18 15:40 Dose: 100 mg Zolpidem Tartrate (Ambien) 5 mg PO HS PRN PRN Reason: INSOMNIA Allergies Allergy/AdvReac Type Severity Reaction Status Date / Time No Known Allergies Allergy Unverified 05/26/18 08:51 Home Medications Medication Instructions Recorded Confirmed Type atorvastatin 80 mg PO DAILY 04/30/18 05/26/18 History lisinopril 10 mg PO DAILY 04/30/18 05/26/18 History Exam Vital signs: Vital Signs 05/26/18 08:31 05/26/18 11:24 05/26/18 11:26 Temperature 97.2 F L 98.2 F Pulse Rate 109 H 107 H Respiratory Rate 18 19 19 Blood Pressure 106/62 114/60 Pulse Oximetry 98 99 05/26/18 12:59 Temperature Pulse Rate Respiratory Rate 22 Blood Pressure Pulse Oximetry Intake & Output 05/25/18 05/26/18 05/26/18 18:59 06:59 18:59 Intake Total 1200 / 1200 Balance 1200 / 1200 Weight 97.522 kg Intake: IV 1200 / 1200 Cipro 400 MG/200 ML Inj 400 mg 200 / 200 In 200 ml @ 200 mls/hr IV.SIG ONCE ONE Rx#:[id number] NS Inj 1,000 ML @ Wide Open IV. 1000 / 1000 SIG BOLUS ONE Rx#:[id number] - Constitutional no acute distress, obese, cooperative - Routine HEENT Exam Head: Present: normocephalic - Routine Neck Exam Present: supple, full ROM - Routine Respiratory Exam Present: CTA bilaterally. Absent: accessory muscle use - Routine Cardiovascular Exam Present: RRR, S1, S2 - Routine Abdominal Exam Present: soft, normoactive bowel sounds - Routine Extremities Exam Present: edema, full ROM, pulses intact - Routine Skin Exam Present: intact, dry, warm - Routine Neurological Exam Present: alert, oriented X3, CN II-XII intact, moving all extremities Results - Lab Results 05/26/18 09:03 05/26/18 09:03 Most recent lab results Calcium 7.9 mg/dL (8.5-10.1) L 05/26/18 09:03 - Image Kidney/bladder ultrasound: other (Ct reviewed) Assessment and Plan - Assessment (1) RADHA (acute kidney injury) Code(s): N17.9 - Acute kidney failure, unspecified Status: Acute Plan: He has underlying CKD, baseline creatinine was 1.5-1.6 earlier this year. In april he had proteinuria. RADHA may be due to prerenal azotemia due to dehydration. May have progressed to ATN. Imaging negative for obstruction. It is unclear how much urine he is making, pending UA. Quantify proteinuria. Obtain CPK. Mild hyperkalemia is noted, monitor. Change IVF to 1/2 NS with 75 HCO3 @ 50 cc/hr. He has some edema, may need diuretics in next 24 hrs. Hold home lisinopril, avoid other nephrotoxins. Repeat labs daily. If no improvement or he worsens, may need dialysis support. (2) Metabolic acidosis Code(s): E87.2 - Acidosis Status: Acute Plan: Due to renal failure Bicarb gtt as above. (3) ETOH abuse Code(s): F10.10 - Alcohol abuse, uncomplicated Status: Acute Plan: Discussed cessation He does not exhibit signs of withdrawal. chronic hyponatremia is noted, and may be due to beer potomania. Monitor. (4) Rectal pain Code(s): K62.89 - Other specified diseases of anus and rectum Status: Acute Plan: Management per medicine.
[2018-05-26] MEDS: Hydrocortisone Acetate 25 MG Supp RECTAL SCH (17:37)
[2018-05-26] MEDS: Heparin - SQ 10,000 UNITS/ML Vial SQ SCH (17:38)
[2018-05-26] MEDS: Sodium Bicarbonate 8.4% Inj 75 MEQ in Sodium Chloride 0.45 % Inj 925 ML IV.CONT SCH (18:08)
[2018-05-26 18:48] LABS: Amphetamine Urine With Conf Neg (Neg); Barbiturate Urine With Conf Neg (Neg); Benzodiazepine Urine With Conf Neg (Neg)
[2018-05-26 18:50] LABS: Protein/Creatinine Ratio,Urine 3.74 (0.00-0.14)
[2018-05-26 19:28] LABS: Troponin I 0.22 ng/mL (0.02-0.05)
[2018-05-26] MEDS: Senna/Docusate Sodium 8.6/50 MG Tablet PO SCH (20:25)
[2018-05-26 20:55] LABS: CKMB Percent 0.2 % (0.0-4.0); Creatine Kinase MB 162.8 ng/mL (0.5-3.6)
[2018-05-27] MEDS: Heparin - SQ 10,000 UNITS/ML Vial SQ SCH ×4 (00:06→23:13)
[2018-05-27 01:45] LABS: Hepatitits B Surface Antigen Nonreactive (Nonreactive)
[2018-05-27 02:10] LABS: Hepatitis A IgM Antibody Nonreactive (Nonreactive)
[2018-05-27] MEDS: Sodium Bicarbonate 8.4% Inj 75 MEQ in Sodium Chloride 0.45 % Inj 925 ML IV.CONT SCH ×3 (03:31→18:12)
[2018-05-27 07:26] LABS: Baso # (Auto) 0.1 th/mm3 (0.0-0.2); Baso % (Auto) 1.1 % (0.0-2.0); Eos % (Auto) 0.6 % (0.0-4.0); Lymph % (Auto) 18.5 % (9.0-44.0); Mean Corpuscular HGB Conc 33.4 % (32.0-36.0); Mean Corpuscular Volume 108.1 fL (80.0-100.0); Mean Platelet Volume 10.4 fL (7.0-11.0); Mono # (Auto) 0.3 th/mm3 (0.0-0.9); Mono % (Auto) 5.9 % (0.0-8.0); Neut # (Auto) 4.2 th/mm3 (1.8-7.7); Neut % (Auto) 73.9 % (16.0-70.0); Platelet Count 131 th/mm3 (150-450); Red Blood Count 3.06 mil/mm3 (4.50-5.90); Red Cell Distribution Width 17.8 % (11.6-17.2); White Blood Count 5.6 th/mm3 (4.0-11.0)
[2018-05-27 07:35] LABS: INR 1.1 Ratio; Prothrombin Time 11.5 sec (9.8-11.6)
[2018-05-27 08:04] LABS: Albumin 2.1 g/dL (3.4-5.0); Phosphorus 7.3 mg/dL (2.5-4.9); Potassium 4.5 meq/L (3.5-5.1)
[2018-05-27 08:15] LABS: Chol/HDL Ratio 23.82 Ratio; Free T4 (Free Thyroxine) 1.41 ng/dL (0.76-1.46); HDL Cholesterol 8.1 mg/dL (40.0-60.0); Total Protein 6.2 g/dL (6.4-8.2)
[2018-05-27 08:18] LABS: Pappenheimer Bodies Present
[2018-05-27] MEDS: Folic Acid 1 MG Tablet PO SCH (08:55)
[2018-05-27] MEDS: Hydrocortisone Acetate 25 MG Supp RECTAL SCH ×3 (08:55→18:44)
[2018-05-27] MEDS: Multivitamin/Minerals Therapeutic Tablet PO SCH (08:55)
[2018-05-27] MEDS: Senna/Docusate Sodium 8.6/50 MG Tablet PO SCH ×2 (08:55→20:19)
[2018-05-27] MEDS ORDERED: Sod Chloride 0.9% Inj 1,000 ML OTHER PRN ×2 (09:32)
[2018-05-27] MEDS ORDERED: Acetaminophen 325 MG Tablet PO PRN (09:32)
[2018-05-27] MEDS ORDERED: Gelatin 12 MM/7 MM Topical Foam TOPICAL PRN (09:32)
[2018-05-27] MEDS ORDERED: Heparin 10,000 UNITS/10 ML Vial (for IV use) OTHER PRN (09:32)
[2018-05-27] MEDS ORDERED: Sod Chloride 0.9% Inj 1,000 ML IV.CONT PRN (09:32)
[2018-05-27 10:00] LABS: Amorphous Sediment,Urine Rare /hpf; Bacteria,Urine Occasional /hpf; Bilirubin,Urine Negative (Negative); Clarity,Urine Cloudy (Clear); Color,Urine Amber (Yellw/Straw); Glucose,Urine (UA) 50 mg/dL (Negative); Leukocyte Esterase,Urine Trace (Negative); Mucus,Urine Few /lpf (Occasional); Nitrite,Urine Negative (Negative); Specific Gravity,Urine 1.009 (1.002-1.035)
--- NOTE | 2018-05-27 11:52 | P.PNNP ---
Subjective Interval history: Renal function is worse. He is not making much urine. Edema has developed. <Renée LoyolaGuilherme - Last Filed: 05/27/18 11:44> Physical Exam Vital signs: Vital Signs 05/26/18 12:59 05/26/18 16:00 05/26/18 20:00 Temperature 97.9 F 98.1 F Pulse Rate 103 H 121 H Respiratory Rate 22 18 18 Blood Pressure 106/67 125/75 Pulse Oximetry 99 99 05/27/18 00:00 05/27/18 00:30 05/27/18 04:00 Temperature 98.2 F 98.2 F Pulse Rate 93 H 104 H 94 H Respiratory Rate 18 18 Blood Pressure 94/55 L 126/76 Pulse Oximetry 97 92 L 05/27/18 04:20 05/27/18 08:00 Temperature 97.6 F Pulse Rate 97 H 98 H Respiratory Rate 17 Blood Pressure 121/56 L Pulse Oximetry 98 Intake & Output 05/26/18 05/27/18 05/27/18 18:59 06:59 18:59 Intake Total 1550 / 1550 1250 / 1250 Output Total 100 / 100 Balance 1450 / 1450 1250 / 1250 Weight 97.522 kg 69.2 kg Intake: IV 1550 / 1550 200 / 200 NS Inj 1,000 ML @ 100 mls/hr IV 250 / 250 .CONT .Q10H [facility] Rx#:[id number] Cipro 400 MG/200 ML Inj 400 mg 200 / 200 In 200 ml @ 200 mls/hr IV.SIG ONCE ONE Rx#:[id number] NS Inj 1,000 ML @ Wide Open IV. 1000 / 1000 SIG BOLUS ONE Rx#:[id number] Flagyl 500 MG Inj 100 ML @ 100 100 / 100 200 / 200 mls/hr IV.SIG Q8H [facility] Rx#: [id number] Oral 1050 / 1050 Output: Urine 100 / 100 Other: # Voids 1 5 Date of Last Bowel Movement 05/26/18 - Constitutional no acute distress, average body habitus - Routine Neck Exam Present: supple, full ROM - Routine Respiratory Exam Present: CTA bilaterally. Absent: accessory muscle use - Routine Cardiovascular Exam Present: RRR, S1, S2 - Routine Abdominal Exam Present: soft, normoactive bowel sounds - Routine Extremities Exam Present: edema, full ROM, pulses intact, normal capillary refill - Routine Skin Exam Present: intact, dry, warm - Routine Neurological Exam Present: alert, oriented X3, CN II-XII intact, moving all extremities - Detailed Neurological Exam: Coma Scale Eye Opening: Spontaneous Verbal Response: Oriented Motor Response: Obey commands [place] Coma Scale Total: 15 - Routine Psychiatric Exam Present: normal affect, normal thought process <Renée Loyola - Last Filed: 05/27/18 11:44> Vital signs: Vital Signs 05/27/18 00:00 05/27/18 00:30 05/27/18 04:00 Temperature 98.2 F 98.2 F Pulse Rate 93 H 104 H 94 H Respiratory Rate 18 18 Blood Pressure 94/55 L 126/76 Pulse Oximetry 97 92 L 05/27/18 04:20 05/27/18 08:00 05/27/18 12:00 Temperature 97.6 F 98.2 F Pulse Rate 97 H 98 H 107 H Respiratory Rate 17 17 Blood Pressure 121/56 L 110/63 Pulse Oximetry 98 98 Intake & Output 05/27/18 05/27/18 05/28/18 06:59 18:59 06:59 Intake Total 1250 / 1250 1400 / 1400 Output Total 3000 / 3000 Balance 1250 / 1250 -1600 / -1600 Weight 69.2 kg Intake: IV 200 / 200 1400 / 1400 Sodium Bicarbonate 8.4% Inj 75 1000 / 1000 MEQ In 1/2 Normal Saline Inj 925 ML @ 125 mls/hr IV.CONT . Q8H [facility] Rx#:[id number] Flexbumin 25% Inj 100 ML @ 60 200 / 200 mls/hr IV.SIG WITH DIALYSIS PRN Rx#:[id number] Cipro 200 MG/100 ML Inj 200 mg 100 / 100 In 100 ml @ 100 mls/hr IV.SIG Q24H [facility] Rx#:[id number] Flagyl 500 MG Inj 100 ML @ 100 200 / 200 100 / 100 mls/hr IV.SIG Q8H [facility] Rx#: [id number] Oral 1050 / 1050 0 / 0 Output: Hemodialysis Amount 3000 / 3000 Other: # Voids 5 1 Date of Last Bowel Movement 05/26/18 05/27/18 # Bowel Movements 1 <Emre Velazquez - Last Filed: 05/27/18 21:34> Assessment and Plan - Assessment (1) RADHA (acute kidney injury) Code(s): N17.9 - Acute kidney failure, unspecified Status: Acute Plan: He has underlying CKD, baseline creatinine was 1.5-1.6 earlier this year. RADHA is due to rhabdomyolysis. Imaging negative for obstruction. Urine output low. Needs to begin dialysis. Made NPO. IR consulted for vascath. HD today and tomorrow, then MWF as needed. He has significant proteinuria. Follow CPK. On IVF to 1/2 NS with 75 HCO3 @ 50 cc/hr, stop when HD starts. Hold home lisinopril, avoid other nephrotoxins. Repeat labs daily. (2) Rhabdomyolysis due to statin therapy Code(s): M62.82 - Rhabdomyolysis Status: Acute Plan: See above. IVF and HD. (3) Metabolic acidosis Code(s): E87.2 - Acidosis Status: Acute Plan: Due to renal failure Improved. (4) ETOH abuse Code(s): F10.10 - Alcohol abuse, uncomplicated Status: Acute Plan: Discussed cessation He does not exhibit signs of withdrawal. chronic hyponatremia is noted, and may be due to beer potomania. Monitor. (5) Rectal pain Code(s): K62.89 - Other specified diseases of anus and rectum Status: Acute Plan: Management per medicine. <Renée Loyola - Last Filed: 05/27/18 11:44> - Assessment (1) RADHA (acute kidney injury) Code(s): N17.9 - Acute kidney failure, unspecified Status: Acute (2) Rhabdomyolysis due to statin therapy Code(s): M62.82 - Rhabdomyolysis Status: Acute (3) Metabolic acidosis Code(s): E87.2 - Acidosis Status: Acute (4) ETOH abuse Code(s): F10.10 - Alcohol abuse, uncomplicated Status: Acute (5) Rectal pain Code(s): K62.89 - Other specified diseases of anus and rectum Status: Acute - Attending Attestation patient was seen and examined. Agree with above assessment and plan. To initiate dialysis today. Monitor urine output and renal function. Avoid nephrotoxic agents. Can stop bicarbonate drip. <Emre Velazquez - Last Filed: 05/27/18 21:34>
[2018-05-27] MEDS: Calcium Acetate 667 MG Capsule PO SCH ×2 (12:30→18:44)
[2018-05-27] MEDS: Ciprofloxacin 200 MG/100 ML 200 MG/100 ML PIGGYBACK IV.SIG SCH (12:30)
--- NOTE | 2018-05-27 13:19 | P.PNCA ---
Subjective Interval history: alert in nad, denies cheat pain or dyspnea Physical Exam Vital signs: Vital Signs 05/26/18 16:00 05/26/18 20:00 05/27/18 00:00 Temperature 97.9 F 98.1 F 98.2 F Pulse Rate 103 H 121 H 93 H Respiratory Rate 18 18 18 Blood Pressure 106/67 125/75 94/55 L Pulse Oximetry 99 99 97 05/27/18 00:30 05/27/18 04:00 05/27/18 04:20 Temperature 98.2 F Pulse Rate 104 H 94 H 97 H Respiratory Rate 18 Blood Pressure 126/76 Pulse Oximetry 92 L 05/27/18 08:00 05/27/18 12:00 Temperature 97.6 F 98.2 F Pulse Rate 98 H 99 H Respiratory Rate 17 17 Blood Pressure 121/56 L 110/63 Pulse Oximetry 98 98 Intake & Output 05/26/18 05/27/18 05/27/18 18:59 06:59 18:59 Intake Total 1550 / 1550 1250 / 1250 Output Total 100 / 100 Balance 1450 / 1450 1250 / 1250 Weight 97.522 kg 69.2 kg Intake: IV 1550 / 1550 200 / 200 NS Inj 1,000 ML @ 100 mls/hr IV 250 / 250 .CONT .Q10H [facility] Rx#:[id number] Cipro 400 MG/200 ML Inj 400 mg 200 / 200 In 200 ml @ 200 mls/hr IV.SIG ONCE ONE Rx#:[id number] NS Inj 1,000 ML @ Wide Open IV. 1000 / 1000 SIG BOLUS ONE Rx#:[id number] Flagyl 500 MG Inj 100 ML @ 100 100 / 100 200 / 200 mls/hr IV.SIG Q8H [facility] Rx#: [id number] Oral 1050 / 1050 Output: Urine 100 / 100 Other: # Voids 1 5 Date of Last Bowel Movement 05/26/18 Assessment and Plan - Assessment (1) Thrombocytopenia Code(s): D69.6 - Thrombocytopenia, unspecified Status: Acute (2) Anemia Code(s): D64.9 - Anemia, unspecified Status: Acute (3) Leukemia Code(s): C95.90 - Leukemia, unspecified not having achieved remission Status: Acute (4) NSTEMI (non-ST elevated myocardial infarction) Code(s): I21.4 - Non-ST elevation (NSTEMI) myocardial infarction Status: Acute (5) Tobacco abuse Code(s): Z72.0 - Tobacco use Status: Acute (6) RADHA (acute kidney injury) Code(s): N17.9 - Acute kidney failure, unspecified Status: Acute (7) ETOH abuse Code(s): F10.10 - Alcohol abuse, uncomplicated Status: Acute (8) Rectal pain Code(s): K62.89 - Other specified diseases of anus and rectum Status: Acute (9) Metabolic acidosis Code(s): E87.2 - Acidosis Status: Acute (10) Diverticulitis Code(s): K57.92 - Diverticulitis of intestine, part unspecified, without perforation or abscess without bleeding Status: Acute (11) Acute renal failure Code(s): N17.9 - Acute kidney failure, unspecified Status: Acute (12) Transaminitis Code(s): R74.0 - Nonspecific elevation of levels of transaminase and lactic acid dehydrogenase [LDH] Status: Acute (13) Alcohol abuse Code(s): F10.10 - Alcohol abuse, uncomplicated Status: Acute - Plan 1.) NSTEMI - suspect trop elevation due to arf, he is assymptomatic 2.) Afib - f/u 2d echo, hematology consult to better define risks/benefits of ac (11) Acute renal failure Qualifiers: Acute renal failure type: unspecified Qualified Code(s): N17.9 - Acute kidney failure, unspecified
[2018-05-27] MEDS ORDERED: *Heparin 10,000 UNITS/10 ML Vial Periprocedural ONLY ONE (14:13)
--- NOTE | 2018-05-27 14:23 | ECHRPT ---
Indication: Essential (primary) hypertension CONCLUSIONS Technically difficult study making assessment of left ventricular function suboptimal. Grossly, lef t ventricular systolic function appears low normal with an estimated ejection fraction of 50%. Normal left ventricular size. Wall thickness is normal. No definite wall motion abnormalities. Trace mitral valve regurgitation. There is mild tricuspid regurgitation. The estimated pulmonary arterial pressure is 40 mmHg. BP: / HR: 95 Rhythm: Sinus MEASUREMENTS (Male / Female) Normal Values Technical Quality:Good 2D ECHO LV Diastolic Diameter PLAX 5.3 cm 4.2 - 5.9 / 3.9 - 5.3 cm LV Systolic Diameter PLAX 4.1 cm IVS Diastolic Thickness 1.0 cm 0.6 - 1.0 / 0.6 - 0.9 cm LVPW Diastolic Thickness 1.0 cm 0.6 - 1.0 / 0.6 - 0.9 cm LV Relative Wall Thickness 0.4 RV Internal Dim ED PLAX 3.1 cm LVOT Diameter 2.2 cm Aortic Root Diameter 2.9 cm LA Systolic Diameter LX 3.8 cm 3.0 - 4.0 / 2.7 - 3.8 cm M-MODE AV Cusp Separation MM 2.1 cm DOPPLER AV Peak Velocity 150.3 cm/s AV Peak Gradient 9.0 mmHg LVOT Peak Velocity 134.5 cm/s LVOT Peak Gradient 7.2 mmHg AV Area Cont Eq pk 3.4 cm Mitral E Point Velocity 110.0 cm/s TR Peak Velocity 277.0 cm/s TR Peak Gradient 30.7 mmHg Right Atrial Pressure 10.0 mmHg Pulmonary Artery Systolic Pressu 40.7 mmHg Right Ventricular Systolic Press 40.7 mmHg PV Peak Velocity 110.0 cm/s PV Peak Gradient 4.8 mmHg FINDINGS LEFT VENTRICLE Technically difficult study making assessment of left ventricular function suboptimal. Grossly, le ft ventricular systolic function appears low normal with an estimated ejection fraction of 50%. Normal left ventricular size. Wall thickness is normal. No definite wall motion abnormalities. RIGHT VENTRICLE Normal right ventricular size and systolic function. LEFT ATRIUM The left atrial size is normal. RIGHT ATRIUM The right atrial size is normal. ATRIAL SEPTUM Normal atrial septal thickness without atrial level shunting by limited color doppler interrogation. AORTA The aortic root and proximal ascending aorta are normal in size on limited imaging. MITRAL VALVE Trace mitral valve regurgitation. AORTIC VALVE Trileaflet aortic valve. No aortic valve stenosis or regurgitation. TRICUSPID VALVE There is mild tricuspid regurgitation. The estimated pulmonary arterial pressure is 40 mmHg. PULMONARY VALVE No pulmonary valve regurgitation or stenosis. VESSELS The inferior vena cava is normal in size. PERICARDIUM No pericardial effusion. Jovon Huggins MD (Electronically Signed) Final Date:27 May 2018 14:22
--- NOTE | 2018-05-27 14:25 | P.PNIM ---
Subjective Interval history: Patient is a 53-year-old male who presented to the hospital with complaints of nausea and vomiting and diarrhea as well as rectal pain due to his hemorrhoids. He states this been happening for the past couple of days to a week. He is also a daily alcohol drinker. Was seen here on May 19 for sigmoid diverticulitis. He is a smoker and drinks daily. 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 Was also found to have elevated LFTs and to be in renal failure. Therefore patient will be admitted and will be treated for the diverticulitis, the renal failure, and the rectal pain. His lisinopril and Lipitor will both be held. We will consult nephrology. Patient is also noted to have elevated troponins. Suspect secondary to the renal failure. But will consult cardiology and get an echocardiogram. We will also trend troponins and cardiac enzymes Has already had an ultrasound of his kidneys bilaterally 9-6 noted to be in RHABDOMYOLYSIS SUSPECT DUE TO STATIN VS OTHER WORSENING RENAL FUNCTIONS WILL NEED HD TODAY TO HAVE HD CATHETER PLACED TO HAVE HD TODAY DW RN AND PT AND RENAL AND CARDIOLOGY HAD ECHO TODAY Physical Exam Vital signs: Vital Signs 05/26/18 16:00 05/26/18 20:00 05/27/18 00:00 Temperature 97.9 F 98.1 F 98.2 F Pulse Rate 103 H 121 H 93 H Respiratory Rate 18 18 18 Blood Pressure 106/67 125/75 94/55 L Pulse Oximetry 99 99 97 05/27/18 00:30 05/27/18 04:00 05/27/18 04:20 Temperature 98.2 F Pulse Rate 104 H 94 H 97 H Respiratory Rate 18 Blood Pressure 126/76 Pulse Oximetry 92 L 05/27/18 08:00 05/27/18 12:00 Temperature 97.6 F 98.2 F Pulse Rate 98 H 99 H Respiratory Rate 17 17 Blood Pressure 121/56 L 110/63 Pulse Oximetry 98 98 Intake & Output 05/26/18 05/27/18 05/27/18 18:59 06:59 18:59 Intake Total 1550 / 1550 1250 / 1250 100 / 100 Output Total 100 / 100 Balance 1450 / 1450 1250 / 1250 100 / 100 Weight 97.522 kg 69.2 kg Intake: IV 1550 / 1550 200 / 200 100 / 100 NS Inj 1,000 ML @ 100 mls/hr IV 250 / 250 .CONT .Q10H [facility] Rx#:[id number] Cipro 200 MG/100 ML Inj 200 mg 100 / 100 In 100 ml @ 100 mls/hr IV.SIG Q24H [facility] Rx#:[id number] Cipro 400 MG/200 ML Inj 400 mg 200 / 200 In 200 ml @ 200 mls/hr IV.SIG ONCE ONE Rx#:[id number] NS Inj 1,000 ML @ Wide Open IV. 1000 / 1000 SIG BOLUS ONE Rx#:[id number] Flagyl 500 MG Inj 100 ML @ 100 100 / 100 200 / 200 mls/hr IV.SIG Q8H [facility] Rx#: [id number] Oral 1050 / 1050 Output: Urine 100 / 100 Other: # Voids 1 5 Date of Last Bowel Movement 05/26/18 Narrative: GENERAL: Awake alert and oriented x3 talkative and cooperative SKIN: Warm and dry. HEAD: Atraumatic. Normocephalic. EYES: Pupils equal and round. No scleral icterus. No injection or drainage. EOMI ENT: No nasal bleeding or discharge. Mucous membranes pink and moist. Tongue is midline NECK: Trachea midline. No JVD. Supple CARDIOVASCULAR: Regular rate and rhythm. S1-S2 no S3 or S4 RESPIRATORY: No accessory muscle use. Clear to auscultation. Breath sounds equal bilaterally. GASTROINTESTINAL: Abdomen soft, non-tender, nondistended. Hepatic and splenic margins not palpable. Obese MUSCULOSKELETAL: Extremities without clubbing, cyanosis, PLUS 2 TO 3 BL LE. No obvious deformities. NEUROLOGICAL: Awake and alert. No obvious cranial nerve deficits. Motor grossly within normal limits. Five out of 5 muscle strength in the arms and legs. Normal speech. PSYCHIATRIC: Appropriate mood and affect; insight and judgment normal. Results - Labs CBC & Chem 7: 05/27/18 05:40 05/27/18 05:40 Laboratory Results - last 24 hr 05/26/18 05/26/18 05/26/18 13:02 18:00 18:00 WBC RBC Hgb Hct MCV MCH MCHC RDW Plt Count MPV Prelim Diff (Auto) Neut % (Auto) Lymph % (Auto) [place] % (Auto) Eos % (Auto) Baso % (Auto) Neut # (Auto) Lymph # (Auto) [place] # (Auto) Eos # (Auto) Baso # (Auto) WBC Differential Diff Scan Differential Comment Pappenheimer Bodies PT INR Sodium Potassium Chloride Carbon Dioxide Anion Gap BUN Creatinine Estimated GFR Random Glucose Calcium Prot Corrected Calcium Phosphorus Magnesium Total Bilirubin AST ALT Alkaline Phosphatase Total Creatine Kinase 689751 H CK-MB (CK-2) 155.6 H CK-MB (CK-2) % 0.1 Troponin I 0.21 H Total Protein Albumin Triglycerides Cholesterol LDL Cholesterol, Calc HDL Cholesterol Cholesterol/HDL Ratio TSH 3.300 Free T4 Urine Color Urine Clarity Urine pH Ur Specific [place] Urine Protein Urine Glucose (UA) Urine Ketones Urine Occult Blood Urine Nitrate Urine Bilirubin Urine Urobilinogen Ur Leukocyte Esterase Urine RBC Urine WBC Amorphous Sediment Urine Bacteria Urine Mucus Micro UA Comment Ur Microscopic Review Urine Culture Comments Ur Random Creatinine 80 U Random Total Protein 299.1 H Protein/Creatinin Ratio 3.74 H Urine Opiates Screen Cancelled Ur Barbiturates Screen Cancelled Ur Amphetamine Screen Ur Amphetamines Screen Cancelled U Benzodiazepines Scrn Cancelled Urine Cocaine Screen Cancelled U Cannabinoids Screen Cancelled Hepatitis A IgM Ab Hep Bs Antigen Hep B Core IgM Ab Hep C IgG Ab 05/26/18 05/26/18 05/26/18 18:00 18:03 18:03 WBC RBC Hgb Hct MCV MCH MCHC RDW Plt Count MPV Prelim Diff (Auto) Neut % (Auto) Lymph % (Auto) [place] % (Auto) Eos % (Auto) Baso % (Auto) Neut # (Auto) Lymph # (Auto) [place] # (Auto) Eos # (Auto) Baso # (Auto) WBC Differential Diff Scan Differential Comment Pappenheimer Bodies PT INR Sodium Potassium Chloride Carbon Dioxide Anion Gap BUN Creatinine Estimated GFR Random Glucose Calcium Prot Corrected Calcium Phosphorus Magnesium Total Bilirubin AST ALT Alkaline Phosphatase Total Creatine Kinase 85470 H CK-MB (CK-2) 162.8 H CK-MB (CK-2) % 0.2 Troponin I 0.22 H Total Protein Albumin Triglycerides Cholesterol LDL Cholesterol, Calc HDL Cholesterol Cholesterol/HDL Ratio TSH Free T4 Urine Color Urine Clarity Urine pH Ur Specific [place] Urine Protein Urine Glucose (UA) Urine Ketones Urine Occult Blood Urine Nitrate Urine Bilirubin Urine Urobilinogen Ur Leukocyte Esterase Urine RBC Urine WBC Amorphous Sediment Urine Bacteria Urine Mucus Micro UA Comment Ur Microscopic Review Urine Culture Comments Ur Random Creatinine U Random Total Protein Protein/Creatinin Ratio Urine Opiates Screen Neg Ur Barbiturates Screen Neg Ur Amphetamine Screen Neg Ur Amphetamines Screen U Benzodiazepines Scrn Neg Urine Cocaine Screen Neg U Cannabinoids Screen Neg Hepatitis A IgM Ab Nonreactive Hep Bs Antigen Nonreactive Hep B Core IgM Ab Nonreactive Hep C IgG Ab Nonreactive 05/27/18 05/27/18 05/27/18 05:40 05:40 05:40 WBC 5.6 RBC 3.06 L Hgb 11.0 L Hct 33.0 L MCV 108.1 H MCH 36.0 H MCHC 33.4 RDW 17.8 H Plt Count 131 L MPV 10.4 Prelim Diff (Auto) Slide review pending Neut % (Auto) 73.9 H Lymph % (Auto) 18.5 [place] % (Auto) 5.9 Eos % (Auto) 0.6 Baso % (Auto) 1.1 Neut # (Auto) 4.2 Lymph # (Auto) 1.0 [place] # (Auto) 0.3 Eos # (Auto) 0.0 Baso # (Auto) 0.1 WBC Differential . Diff Scan Auto diff confirmed Differential Comment . Pappenheimer Bodies Present H PT 11.5 INR 1.1 Sodium 128 L Potassium 4.5 Chloride 91 L Carbon Dioxide 22.0 Anion Gap 15 BUN 56 H Creatinine 6.80 H Estimated GFR 9 L Random Glucose 81 Calcium 7.0 L* D Prot Corrected Calcium 7.5 L Phosphorus 7.3 H Magnesium 2.0 Total Bilirubin 5.1 H AST 3491 H ALT 1004 H Alkaline Phosphatase 357 H Total Creatine Kinase CK-MB (CK-2) CK-MB (CK-2) % Troponin I Total Protein 6.2 L D Albumin 2.1 L Triglycerides 479 H Cholesterol 193 LDL Cholesterol, Calc HDL Cholesterol 8.1 L Cholesterol/HDL Ratio 23.82 TSH Free T4 1.41 Urine Color Urine Clarity Urine pH Ur Specific [place] Urine Protein Urine Glucose (UA) Urine Ketones Urine Occult Blood Urine Nitrate Urine Bilirubin Urine Urobilinogen Ur Leukocyte Esterase Urine RBC Urine WBC Amorphous Sediment Urine Bacteria Urine Mucus Micro UA Comment Ur Microscopic Review Urine Culture Comments Ur Random Creatinine U Random Total Protein Protein/Creatinin Ratio Urine Opiates Screen Ur Barbiturates Screen Ur Amphetamine Screen Ur Amphetamines Screen U Benzodiazepines Scrn Urine Cocaine Screen U Cannabinoids Screen Hepatitis A IgM Ab Hep Bs Antigen Hep B Core IgM Ab Hep C IgG Ab 05/27/18 09:30 WBC RBC Hgb Hct MCV MCH MCHC RDW Plt Count MPV Prelim Diff (Auto) Neut % (Auto) Lymph % (Auto) [place] % (Auto) Eos % (Auto) Baso % (Auto) Neut # (Auto) Lymph # (Auto) [place] # (Auto) Eos # (Auto) Baso # (Auto) WBC Differential Diff Scan Differential Comment Pappenheimer Bodies PT INR Sodium Potassium Chloride Carbon Dioxide Anion Gap BUN Creatinine Estimated GFR Random Glucose Calcium Prot Corrected Calcium Phosphorus Magnesium Total Bilirubin AST ALT Alkaline Phosphatase Total Creatine Kinase CK-MB (CK-2) CK-MB (CK-2) % Troponin I Total Protein Albumin Triglycerides Cholesterol LDL Cholesterol, Calc HDL Cholesterol Cholesterol/HDL Ratio TSH Free T4 Urine Color Sirisha Urine Clarity Cloudy H Urine pH 6.0 Ur Specific [place] 1.009 Urine Protein 100 H Urine Glucose (UA) 50 Urine Ketones Negative Urine Occult Blood Large H Urine Nitrate Negative Urine Bilirubin Negative Urine Urobilinogen Less than 2 Ur Leukocyte Esterase Trace H Urine RBC 1 Urine WBC 4 Amorphous Sediment Rare H Urine Bacteria Occasional H Urine Mucus Few H Micro UA Comment Culture not ind Ur Microscopic Review Not Reportable Urine Culture Comments Culture not ind Ur Random Creatinine U Random Total Protein Protein/Creatinin Ratio Urine Opiates Screen Ur Barbiturates Screen Ur Amphetamine Screen Ur Amphetamines Screen U Benzodiazepines Scrn Urine Cocaine Screen U Cannabinoids Screen Hepatitis A IgM Ab Hep Bs Antigen Hep B Core IgM Ab Hep C IgG Ab - Imaging Abdomen/Bladder Ultrasound 05/26/18 00:00 CONCLUSION: 1. Small nonobstructing right renal stone. Otherwise, unremarkable exam. Chest X-Ray 05/26/18 08:55 CONCLUSION: No acute cardiopulmonary disease. Abdomen/Pelvis CT 05/26/18 10:54 CONCLUSION: 1. Sigmoid diverticulitis. 2. Hepatic steatosis. 3. Right renal calculus. - Procedures TO HAVE HD CATHETER PLACED TODAY Assessment and Plan - Plan Diverticulitis will continue on Cipro 400 mg IV daily due to renal functions and Flagyl 500 mg IV every 8 hours -Pain control with morphine and oxycodone -Clear liquid diet Acute renal failure -Continue on IV fluids -Renal ultrasounds have been done no obstruction -Hold on NEPHROtoxic agents -Nephrology consult -Hold his lisinopril WORSENING RENAL FUNCTIONS TO HAVE HD CATH PLACEMENT AND HD RHABDOMYOLYSIS SUSPECT DUE TO STATIN CONTINUE FLUIDS WORSENING RENAL FUNCTION WILL NEED HD TODAY Elevated LFTs -Check hepatitis panel -Possibly due to his excessive amount of alcohol -Hold his Lipitor 80 mg daily RHABDOMYOLYSIS Hypertension -Catapres as needed -Obviously hold his lisinopril due to the renal failure Nausea and vomiting -Zofran as needed Hyperlipidemia -hold Lipitor due to elevated LFTs Elevated troponins suspect secondary to renal issues -Consult cardiology -Echocardiogram -Trend troponins and cardiac enzymes Diarrhea and hemorrhoid pain -Continue on Anusol rectal suppositories -Morphine and oxycodone as needed Tobacco abuse recommend smoking cessation with NicoDerm patch Alcohol abuse -Continue on CIWA protocol DVT and GI prophylaxis Code Status: FULL CODE Discussed Condition With: RN AND PT AND RENAL AND CM AND CARDIO Discharge Planning: ONCE RENAL FUNCTIONS AND DIVERTICULITIS IMPROVES
--- NOTE | 2018-05-27 14:50 | P.RAD ---
Post Procedure Progress Note - Pre Procedure Diagnosis (1) Acute renal failure - Post Procedure Diagnosis (1) Acute renal failure - Procedure Information Procedure Date: 05/27/18 Supervising Radiologist: Quincy Lopes MD Anesthesia: Local - Plan of Activity Patient to Unit: Other (Dialysis) Patient Condition: Good See PACS Report for procedural detail/treatment. [facility] Radiology Procedures right Internal Jugular Hemodialysis Catheter Non-Tunneled Ethiopian: 14 PICC Line Length (cm): 20
[2018-05-27] MEDS: Albumin Human 25% Inj 100 ML IV.SIG PRN ×2 (15:37→15:58)
[2018-05-27 15:59] LABS: Hemoglobin A1c 6.6 % (4.3-6.0)
--- NOTE | 2018-05-28 00:37 | ECG ---
Date Performed: 05/26/2018 Time Performed: 19:27:16 PTAGE: 53 years EKG: ATRIAL FIBRILLATION INCOMPLETE RIGHT BUNDLE BRANCH BLOCK POSSIBLE RIGHT VENTRICULAR HYPERTR OPHY POSSIBLE ANTERIOR MYOCARDIAL INFARCTION , PROBABLY OLD ABNORMAL ECG PREVIOUS TRACING : 05/26/2018 13.01 Since the previous tracing, no significant change noted DOCTOR: Vitaly Kauffman Interpretating Date/Time 05/28/2018 00:35:57
--- NOTE | 2018-05-28 00:49 | ECG ---
Date Performed: 05/26/2018 Time Performed: 13:01:38 PTAGE: 53 years EKG: ATRIAL FIBRILLATION WITH RAPID VENTRICULAR RESPONSE POSSIBLE RIGHT VENTRICULAR HYPERTROPHY SEPTAL MYOCARDIAL INFARCTION ABNORMAL ECG PREVIOUS TRACING : 05/26/2018 09.13 Since the previous tracing, no significant change noted DOCTOR: Vitaly Kauffman Interpretating Date/Time 05/28/2018 00:47:39
[2018-05-28 05:22] LABS: ABG Base Excess -3.7 mmol/L (-2-2); ABG PCO2 68 mmHg (38-42); ABG PO2 176 mmHg (61-120)
[2018-05-28] MEDS ORDERED: Midazolam Inj 5 MG/ML 1 ML Vial ONE ×2 (05:27→10:12)
[2018-05-28] MEDS ORDERED: fentaNYL 10 mcg/mL Premix Drip 2,500 MCG/250 ML BAG IV.SIG PRN (06:01)
[2018-05-28] MEDS ORDERED: Haloperidol Inj 5 MG/ML Ampul IV.PUSH PRN (06:02)
[2018-05-28] MEDS ORDERED: Bisacodyl 10 MG Supp RECTAL PRN (06:04)
--- NOTE | 2018-05-28 06:08 | CT ---
EXAM DATE: 05/28/2018 6:03 AM EDT AGE/SEX: 53 years / Male INDICATIONS: Altered mental status post fall. CLINICAL DATA: This is the patient's initial encounter. Patient reports that signs and symptoms have been present for 1 day and indicates a pain score of 0/10. MEDICAL/SURGICAL HISTORY: Hypertension. Leukemia. None. RADIATION DOSE: 38.08 CTDI (mGy) COMPARISON: No prior exams available for comparison. TECHNIQUE: CT of the head without contrast. Using automated exposure control and adjustment of the mA and/or kV according to patient size, radiation dose was kept as low as reasonably achievable to ob tain optimal diagnostic quality images. DICOM format image data is available electronically for revi ew and comparison. FINDINGS: The head is canted in the gantry creating asymmetries. Cerebrum: The ventricles are normal for age. No evidence of midline shift, mass lesion, hemorrhage or acute infarction. No extraaxial fluid collections are seen. Posterior Fossa: The cerebellum and brainstem are intact. The 4th ventricle is midline. The cerebe llopontine angle is unremarkable. Extracranial: The visualized portion of the orbits is intact. 1.3 cm rounded opacity in the inferior right maxillary sinus may represent retention cyst. Skull: The calvaria is intact. No evidence of skull fracture. CONCLUSION: 1. No acute findings in the brain. . Electronically signed by: Man Rubio MD 05/28/2018 6:07 AM EDT
--- NOTE | 2018-05-28 06:17 | P.CON ---
History of Present Illness Service: Critical Care Medicine Consult date: 05/28/18 Requesting Physician: Moise Mazariegos Reason for Consult: acute obtundation Primary Care Provider: [facility] Chief Complaint: NAUSEA AND VOMITING AND DIARRHEA History of Present Illness: This is a 53-year-old male who was rapid response from the floor for acute hypoxemia and change in mental status. Per nursing report he was agitated and per the medical record has a history of alcoholism and alcohol withdrawal. Earlier today he sustained a fall, but nursing report states that they did not take them for head CT due to new somnolence. When I evaluated the patient the rapid response he was obtunded, acutely hypoxemic, accurately respirating. We emergently transferred to the ICU and intubated the patient, see separate procedure note for details. We did go down for stat head CT which was negative for acute bleed. He has laboratory evidence of new acute renal failure requiring renal replacement therapy, new acute liver injury. After intubation he was hypotensive requiring vasopressors. No additional information is available from patient due to his acute medical condition and review of systems is unobtainable. Review of Systems unobtainable due to endotracheal tube, unobtainable due to mental condition, unobtainable due to mental status PMFSH - History History Provided By: Patient - Medical / Surgical Hx Neg / Unobtainable Medical Problems Denied: Unable to Obtain Surgical History: Unable to Obtain - Medical History Medical History: Medical History (Last Reviewed 05/27/18 @ 11:55 by Nela Armando) Hairy cell leukemia Alcohol abuse Diverticulosis Enlarged prostate HTN (hypertension) Hemorrhoids Hypercholesterolemia Leukemia Sleep apnea Smoker - Surgical History Surgical History: Surgical History (Last Reviewed 05/27/18 @ 11:55 by Nela Armando) History of hernia repair - Family History Family History: Family History (Last Reviewed 05/27/18 @ 11:55 by Nela Armando) Other Family history of hypertension - Tobacco History Second Hand Smoke Exposure: No Tobacco Use In Past 30 Days: Yes Smoking Status: Current every day smoker Tobacco Type: Cigarettes - Alcohol History How Often Do You Have a Drink Containing Alcohol: 2 to 3 times a week - Substance Use History Substance History: No History of Abuse - Substance Use Type Marijuana Status: Early Remission Route Used: Inhalation Frequency: weekly Reason for Use: Calm Down - Travel History History of Recent Travel: No Recent Travel in the [facility] Within the Last 8 Weeks: No Recent Travel Out of the Country Within the Last 8 Weeks: No - Immunization History Tetanus Immunization: Unsure Hx Influenza Vaccine This Season: No Medications and Allergies Active Medications: Active Medications Acetaminophen (Tylenol) 650 mg PO Q4H PRN PRN Reason: Temp > 100.4 Acetaminophen (Tylenol) 650 mg PO UNSCH PRN PRN Reason: SEE LABEL COMMENTS Al Hydroxide/Mg Hydroxide (Milk Of Michael Liq) 30 ml PO Q12H PRN PRN Reason: Mild Constipation Albuterol (Duoneb Neb (Prn)) 1 ampul NEB Q2HR NEB PRN PRN Reason: WHEEZING Albuterol (Duoneb Neb (Nakia)) 1 ampul NEB Q6HR NEB NAKIA Bisacodyl (Dulcolax Supp) 10 mg RECTAL DAILY PRN PRN Reason: SEVERE CONSITIPATION Bisacodyl (Dulcolax Supp) 10 mg RECTAL DAILY PRN PRN Reason: if no BM in last 24h Calcium Acetate (Phoslo) 667 mg PO TID [facility] Last Admin: 05/27/18 18:44 Dose: 667 mg Chlorhexidine Gluconate (Peridex 0.12% Oral Kit) 15 ml OROPHARYNG BID@0800, 2000 [facility] Chlorhexidine Gluconate (Chlorhexidine 2% Cloth) 3 pack TOPICAL DAILY@0400 [facility] Stop: 06/03/18 03:59 Chlorhexidine Gluconate (Chlorhexidine 2% Cloth) 3 pack TOPICAL DAILY@0400 PRN PRN Reason: Extra cloth needed Stop: 06/03/18 03:59 Dextrose (D50w Syringe) 50 ml IV.PUSH UNSCH PRN PRN Reason: PER HYPOGLYCEMIA PROTOCOL Diphenhydramine HCl (Benadryl) 25 mg PO UNSCH PRN PRN Reason: SEE LABEL COMMENTS Folic Acid (Folic Acid) 1 mg PO DAILY [facility] Stop: 05/31/18 14:59 Last Admin: 05/27/18 08:55 Dose: 1 mg Gelatin (Gelfoam 12 Mm/7 Mm Topical) 1 foam TOPICAL PRN PRN PRN Reason: help stop bleeding from site Gentamicin Sulfate (Gentamicin Inj) 20 mg OTHER WITH DIALYSIS PRN PRN Reason: Dwell Gentamycin Lock Glucagon (Glucagon Inj) 1 mg IM ONCE PRN PRN Reason: blood sugar < 60, no iv access Haloperidol Lactate (Haldol Inj) 5 mg IV.PUSH Q15M PRN PRN Reason: for severe agitation Heparin Sodium (Porcine) (Heparin Inj) 5,000 units SQ Q8HR [facility] Last Admin: 05/27/18 23:13 Dose: 5,000 units Heparin Sodium (Porcine) (Heparin Inj) 8,000 units OTHER WITH DIALYSIS PRN PRN Reason: for machine prime Heparin Sodium (Porcine) (Heparin Inj) 1,000 units OTHER WITH DIALYSIS PRN PRN Reason: Dwell Heparin to Fill Catheter Hydrocortisone Acetate (Hemorrhoidal Hc Supp) 25 mg RECTAL TID [facility] Last Admin: 05/27/18 18:44 Dose: 25 mg Ciprofloxacin/Dextrose (Cipro 200 Mg/100 Ml Inj) 200 mg in 100 mls @ 100 mls/ hr IV.SIG Q24H [facility] Last Infusion: 05/27/18 13:25 Dose: Infused Metronidazole/Sodium Chloride (Flagyl 500 Mg Inj) 100 mls @ 100 mls/hr IV.SIG Q8H [facility] Stop: 06/05/18 21:59 Last Infusion: 05/28/18 03:54 Dose: Infused Albumin Human (Flexbumin 25% Inj) 100 mls @ 60 mls/hr IV.SIG WITH DIALYSIS PRN PRN Reason: hypotension / volume replace Last Infusion: 05/27/18 18:14 Dose: Infused Sodium Chloride (Ns Inj) 1,000 mls @ 0 mls/hr OTHER .Q0M PRN PRN Reason: for prime and rinse back Sodium Chloride (Ns Inj) 1,000 mls @ 200 mls/hr OTHER .Q5H PRN PRN Reason: for dialyzer flush PRN Sodium Chloride (Ns Inj) 1,000 mls @ 0 mls/hr IV.CONT .Q0M PRN PRN Reason: hypotension / volume replace Propofol (Diprivan 1000 Mg/100 Ml Inj) 1,000 mg in 100 mls @ 2.076 mls/hr IV.CONT TITRATE PRN; Protocol PRN Reason: Per Protocol Fentanyl (Fentanyl 10 Mcg/Ml Premix Drip) 2,500 mcg in 250 mls @ 5 mls/hr IV.SIG TITRATE PRN; Protocol PRN Reason: Per Protocol Norepinephrine Bitartrate (Levophed-Dextrose 4 Mg/250 Ml Drip) 4 mg in 250 mls @ 7.5 mls/hr IV.SIG TITRATE PRN; Protocol PRN Reason: Per Protocol Insulin Human Regular (Novolin R Inj) 1 units SQ Q6HR NAKIA; Protocol Lactulose (Lactulose Liq) 30 ml PO DAILY PRN PRN Reason: SEVERE CONSITIPATION Mannitol (Mannitol Inj) 12.5 gm IV.PUSH UNSCH PRN PRN Reason: hypotension / volume replace Multivitamins/Minerals (Theragran-M) 1 tab PO DAILY [facility] Stop: 05/31/18 13:59 Last Admin: 05/27/18 08:55 Dose: 1 tab Nitroglycerin (Nitrostat Sl) 0.4 mg SL Q5M PRN PRN Reason: CHEST PAIN Ondansetron HCl (Zofran Inj) 4 mg IV.PUSH Q6H PRN PRN Reason: NAUSEA OR VOMITING Ondansetron HCl (Zofran Inj) 4 mg IV.PUSH UNSCH PRN PRN Reason: NAUSEA OR VOMITING Pantoprazole Sodium (Protonix) 40 mg PO DAILY [facility] Last Admin: 05/27/18 08:55 Dose: 40 mg Senna/Docusate Sodium (Najma-Colace) 1 tab PO BID [facility] Last Admin: 05/27/18 20:19 Dose: 1 tab Sennosides (Senokot) 17.2 mg PO Q12H PRN PRN Reason: Moderate Constipation Sodium Chloride (Ns Flush) 5 ml IV.FLUSH PRN PRN PRN Reason: flush each lumen during HD Terbutaline Sulfate (Brethine Inj) 1 mg SQ UNSCH PRN PRN Reason: For Extravasation Thiamine HCl (Vitamin B1) 100 mg PO DAILY [facility] Last Admin: 05/27/18 08:55 Dose: 100 mg Zolpidem Tartrate (Ambien) 5 mg PO HS PRN PRN Reason: INSOMNIA Allergies Allergy/AdvReac Type Severity Reaction Status Date / Time No Known Allergies Allergy Unverified 05/26/18 08:51 Home Medications Medication Instructions Recorded Confirmed Type atorvastatin 80 mg PO DAILY 04/30/18 05/26/18 History lisinopril 10 mg PO DAILY 04/30/18 05/26/18 History Physical Exam Vital signs: Vital Signs 05/27/18 08:00 05/27/18 12:00 05/27/18 20:00 Temperature 36.4 C 36.8 C 36.4 C Pulse Rate 98 H 107 H 105 H Respiratory Rate 17 17 18 Blood Pressure 121/56 L 110/63 106/68 Pulse Oximetry 98 98 93 L 05/28/18 00:00 05/28/18 01:35 05/28/18 01:50 Temperature 36.3 C L 36.2 C L Pulse Rate 90 106 H Respiratory Rate 18 22 Blood Pressure 101/58 L 119/58 L Pulse Oximetry 96 98 95 05/28/18 05:35 Temperature Pulse Rate Respiratory Rate 16 Blood Pressure Pulse Oximetry 100 Intake & Output 05/27/18 05/27/18 05/28/18 06:59 18:59 06:59 Intake Total 1250 / 1250 1400 / 1400 100 / 100 Output Total 3000 / 3000 Balance 1250 / 1250 -1600 / -1600 100 / 100 Weight 69.2 kg Intake: IV 200 / 200 1400 / 1400 100 / 100 Sodium Bicarbonate 8.4% Inj 75 1000 / 1000 MEQ In 1/2 Normal Saline Inj 925 ML @ 125 mls/hr IV.CONT . Q8H [facility] Rx#:[id number] Flexbumin 25% Inj 100 ML @ 60 200 / 200 mls/hr IV.SIG WITH DIALYSIS PRN Rx#:[id number] Cipro 200 MG/100 ML Inj 200 mg 100 / 100 In 100 ml @ 100 mls/hr IV.SIG Q24H NAKIA Rx#:[id number] Flagyl 500 MG Inj 100 ML @ 100 200 / 200 100 / 100 100 / 100 mls/hr IV.SIG Q8H NAKIA Rx#: [id number] Oral 1050 / 1050 0 / 0 Output: Hemodialysis Amount 3000 / 3000 Other: # Voids 5 1 Date of Last Bowel Movement 05/26/18 05/27/18 05/27/18 # Bowel Movements 1 Narrative: GENERAL: Middle-age male who is lying in bed obtunded on BiPAP with agonal respirations HEENT: Normocephalic. Atraumatic. Pupils equal, round, reactive, conjugate. Mucous membranes are dry NECK: Trachea is midline. There is no JVD. CHEST: BiPAP in place. Agonal respirations. SPO2 93%. Tachypneic. Labored. CARDIOVASCULAR: Tachycardic rate in the 150s, irregularly irregular rhythm. A. fib by telemetry. Hypotensive with mean arterial pressure of 59. Now on norepinephrine infusion. ABDOMEN: Soft, nontender, nondistended. No guarding. MUSCULOSKELETAL: Pulses 2+. No peripheral edema. NEUROLOGICAL: RASS -5. GCS is 6. Obtunded. Does weakly withdraw 4. Assessment and Plan - Plan Assessment: 53-year-old male with acute hypoxic and hypercarbic respiratory failure and new acute severe metabolic encephalopathy with associated multiorgan failure. Critically ill. Admit ICU. Will need significant support for his acute multiple organ failure. Active problems: Acute metabolic encephalopathy Alcohol withdrawal syndrome Alcohol dependence Acute hypoxic and hypercarbic respiratory failure Severe respiratory acidosis Acute hypotension and shock, likely multifactorial Severe acute liver dysfunction/injury Severe acute kidney injury requiring renal replacement therapy Plan: Frequent neurochecks DC CIWA protocol Propofol and fentanyl for goal RASS -2 Avoid long-acting sedatives Vent bundle Head of bed elevated Nebs Wean FiO2 for goal SPO2 greater than 90% No weaning for exam improves Trend ABGs Levophed for goal map greater than 65 Send stat lactate Will likely need dialysis today Strict I's and O's Send stat CBC, CMP, mag, phosphorus N.p.o. Place orogastric tube Low intermittent wall suction Unclear if there is a significant infectious etiology to this, but will likely need to be pancultured. Critically ill this time. This patient remains critically ill with one or more organ systems which are or may become a threat to life. I have spent in excess of 51 minutes discontinuously in the care and management of this patient. This time is exclusive of procedures, and includes, but is not limited to, evaluation of the patient, review of the medical record, discussions with family, consultants, nursing staff, or respiratory therapy, and documentation in the medical record.
--- NOTE | 2018-05-28 06:19 | P.PCN ---
Date of procedure: 05/28/18 Pre-op diagnosis: Acute hypoxic respiratory failure Post-op diagnosis: same Procedure: Endotracheal Intubation Diagnosis: Acute hypoxic and hypercarbic respiratory failure Indications: Acute hypoxic and hypercarbic respiratory failure Consent: Emergent Anesthesia: Versed 10 mg IV, rocuronium 100 mg IV Description of the Procedure: The patient was positioned in the sniffing position. Pre-oxygenation was performed using a [id number]. Anesthesia was induced via rapid sequence. A Shore #2 was used for laryngoscopy and a Grade I view was obtained. There is significant thick tenacious oropharyngeal secretions which were obstructing the laryngeal opening. These were aggressively suctioned. A 8.5 cuffed endotracheal tube was inserted atraumatically through the vocal cords. Confirmation of correct endotracheal tube placement was made by equal and bilateral breath sounds and colorimetric CO2 detection. The endotracheal tube was secured at 25 cm at the teeth. There were no immediate complications noted. The patient remained hemodynamically stable throughout the procedure. A chest x-ray has been ordered. I personally performed the procedure.
--- NOTE | 2018-05-28 06:41 | XR ---
EXAM DATE: 05/28/2018 6:26 AM EDT AGE/SEX: 53 years / Male INDICATIONS: Central line placement CLINICAL DATA: This is the patient's initial encounter. Patient reports that signs and symptoms have been present for 1 day and indicates a pain score of Nonresponsive. MEDICAL/SURGICAL HISTORY: None. None. COMPARISON: [facility] [place], CHEST 1V SINGLE AP, 05/26/2018. . FINDINGS: ET tube tip is at the level of the lawanda and directed towards the right main bronchus. Interval deve lopment of patchy infiltrates in the left perihilar region and at the left lung base with associated loss of delineation of a portion of the left hemidiaphragm. Right lung is clear. Large bore right central line tip is projected in the right atrium. No evidence of pneumothorax. CONCLUSION: 1. Right central line in good position. No evidence of pneumothorax. 2. Intubation of the right main bronchus with interval development of infiltrates/volume loss in the left perihilar and left lung base. The ET tube needs to be withdrawn at least 2.5 cm. Electronically signed by: Man Rubio MD 05/28/2018 6:39 AM EDT
[2018-05-28 07:08] LABS: ABG Base Excess -2.9 mmol/L (-2-2); ABG PCO2 42 mmHg (38-42); ABG PO2 94 mmHg (61-120)
[2018-05-28 08:42] LABS: Baso # (Auto) 0.1 th/mm3 (0.0-0.2); Baso % (Auto) 0.8 % (0.0-2.0); Eos % (Auto) 0.5 % (0.0-4.0); Hematocrit 32.8 % (39.0-51.0); Hemoglobin 11.1 gm/dL (13.0-17.0); Lymph # (Auto) 0.6 th/mm3 (1.0-4.8); Lymph % (Auto) 8.2 % (9.0-44.0); Mean Corpuscular HGB Conc 33.7 % (32.0-36.0); Mean Corpuscular Volume 106.6 fL (80.0-100.0); Mean Platelet Volume 9.9 fL (7.0-11.0); Mono # (Auto) 0.5 th/mm3 (0.0-0.9); Neut # (Auto) 6.3 th/mm3 (1.8-7.7); Neut % (Auto) 83.5 % (16.0-70.0); Platelet Count 127 th/mm3 (150-450); Red Blood Count 3.08 mil/mm3 (4.50-5.90); White Blood Count 7.5 th/mm3 (4.0-11.0)
[2018-05-28] MEDS: Heparin - SQ 10,000 UNITS/ML Vial SQ SCH ×3 (08:56→21:35)
[2018-05-28] MEDS: Chlorhexidine 0.12% Oral Kit 15 ML UDC OROPHARYNG SCH ×2 (08:57→21:33)
[2018-05-28 09:11] LABS: Activated Partial Thrombo Time 34.7 sec (24.3-30.1); INR 1.2 Ratio
[2018-05-28 09:30] LABS: Albumin 2.3 g/dL (3.4-5.0); Calcium 6.9 mg/dL (8.5-10.1); Magnesium 2.2 mg/dL (1.5-2.5); Phosphorus 8.7 mg/dL (2.5-4.9); Potassium 4.3 meq/L (3.5-5.1); Total Protein 5.9 g/dL (6.4-8.2)
--- NOTE | 2018-05-28 09:53 | IR ---
EXAM DATE: 05/27/2018 3:15 PM EDT AGE/SEX: 53 years / Male INDICATIONS: Patient presents with renal failure in need of dialysis catheter placement. CLINICAL DATA: This is the patient's initial encounter. Patient reports that signs and symptoms have been present for 1 day and indicates a pain score of 0/10. MEDICAL/SURGICAL HISTORY: . HTN, Dyslipidemia, Smoking history, Hairy cell leukemia, Alcohol ab use, Enlarged prostate, Hemorrhoids, Sleep apnea, Diverticulitis. . History of hernia repair. COMPARISON: No prior exams available for comparison. FLUORO TIME (min): 0.26 IMAGE SERIES: 2 ACCESS SITE: Right internal jugular vein MEDICATION(S): 2,500 units Heparin IV DEVICE(S): 14 [place] double lumen 20 cm Schon catheter . . PROCEDURE : 1. Ultrasound guided venipuncture. 2. Fluoroscopic guidance. 3. Central line placement. The risks, benefits and alternatives to the procedure were explained and verbal and written consent w as obtained. The site was prepped in sterile fashion. Full sterile technique was used, including ca p, mask, sterile gloves and gown and a large sterile sheet. Hand hygiene and 2% chlorhexidine prep w as utilized per protocol for cutaneous antisepsis with appropriate dry time for site. Sterile gel an d sterile probe cover were utilized for ultrasound guidance. The skin and subcutaneous tissues were infiltrated with local anesthetic solution. A suitable site a sergei the vein was selected with ultrasound and fluoroscopic guidance. A small incision was made. Th e vein was accessed under direct ultrasound visualization using the micropuncture technique. The kendra ropuncture set was exchanged for a 0.035 wire. The tract was dilated. The catheter was advanced int o position under direct fluoroscopic visualization, and was advanced with the tip at the junction of the superior vena cava and rt atrium. The catheter was fixed in place with suture and a sterile dres sing was applied. The patient tolerated the procedure well and there were no complications. CONCLUSION: 1. Uncomplicated line placement as above. Electronically signed by: Quincy Lopes MD 05/28/2018 9:52 AM EDT
[2018-05-28] MEDS: Propofol 1000 mg/100 ml Inj 1,000 MG/100 ML BOTTLE IV.CONT PRN ×4 (09:59→21:36)
[2018-05-28 10:31] LABS: CKMB Percent 0.1 % (0.0-4.0)
--- NOTE | 2018-05-28 11:33 | P.PNCA ---
Subjective Interval history: intubated, sedated undergoing cl placement by Dr Amelia George Physical Exam Vital signs: Vital Signs 05/27/18 12:00 05/27/18 20:00 05/28/18 00:00 Temperature 98.2 F 97.6 F 97.4 F L Pulse Rate 107 H 105 H 90 Respiratory Rate 17 18 18 Blood Pressure 110/63 106/68 101/58 L Pulse Oximetry 98 93 L 96 05/28/18 01:35 05/28/18 01:50 05/28/18 05:35 Temperature 97.2 F L Pulse Rate 106 H Respiratory Rate 22 16 Blood Pressure 119/58 L Pulse Oximetry 98 95 100 05/28/18 08:20 Temperature Pulse Rate 78 Respiratory Rate 16 Blood Pressure Pulse Oximetry 100 Intake & Output 05/27/18 05/28/18 05/28/18 18:59 06:59 18:59 Intake Total 1400 / 1400 100 / 100 100 / 100 Output Total 3000 / 3000 Balance -1600 / -1600 100 / 100 100 / 100 Intake: IV 1400 / 1400 100 / 100 100 / 100 Sodium Bicarbonate 8.4% Inj 75 1000 / 1000 MEQ In 1/2 Normal Saline Inj 925 ML @ 125 mls/hr IV.CONT . Q8H [facility] Rx#:[id number] Flexbumin 25% Inj 100 ML @ 60 200 / 200 mls/hr IV.SIG WITH DIALYSIS PRN Rx#:[id number] Cipro 200 MG/100 ML Inj 200 mg 100 / 100 In 100 ml @ 100 mls/hr IV.SIG Q24H [facility] Rx#:[id number] Flagyl 500 MG Inj 100 ML @ 100 100 / 100 100 / 100 100 / 100 mls/hr IV.SIG Q8H [facility] Rx#: [id number] Oral 0 / 0 Output: Hemodialysis Amount 3000 / 3000 Other: # Voids 1 Date of Last Bowel Movement 05/27/18 05/27/18 # Bowel Movements 1 Assessment and Plan - Assessment (1) Thrombocytopenia Code(s): D69.6 - Thrombocytopenia, unspecified Status: Acute (2) Anemia Code(s): D64.9 - Anemia, unspecified Status: Acute (3) Leukemia Code(s): C95.90 - Leukemia, unspecified not having achieved remission Status: Acute (4) NSTEMI (non-ST elevated myocardial infarction) Code(s): I21.4 - Non-ST elevation (NSTEMI) myocardial infarction Status: Acute (5) Tobacco abuse Code(s): Z72.0 - Tobacco use Status: Acute (6) RADHA (acute kidney injury) Code(s): N17.9 - Acute kidney failure, unspecified Status: Acute (7) ETOH abuse Code(s): F10.10 - Alcohol abuse, uncomplicated Status: Acute (8) Rectal pain Code(s): K62.89 - Other specified diseases of anus and rectum Status: Acute (9) Metabolic acidosis Code(s): E87.2 - Acidosis Status: Acute (10) Diverticulitis Code(s): K57.92 - Diverticulitis of intestine, part unspecified, without perforation or abscess without bleeding Status: Acute (11) Acute renal failure Code(s): N17.9 - Acute kidney failure, unspecified Status: Acute (12) Transaminitis Code(s): R74.0 - Nonspecific elevation of levels of transaminase and lactic acid dehydrogenase [LDH] Status: Acute (13) Alcohol abuse Code(s): F10.10 - Alcohol abuse, uncomplicated Status: Acute - Plan 1.) NSTEMI - suspect trop elevation due to arf which appears to be due to rhabdomyolysis, he is assymptomatic 2.) Afib - 2d echo ef=50%, f/u hematology consult to better define risks/ benefits of ac 3.) Respiratory failure - ef=50% on echo, assymptomatic 05/27/18, possibly due to volume overload from arf, f/u bnp, retrend trop and cpk; d/w Dr George (11) Acute renal failure Qualifiers: Acute renal failure type: unspecified Qualified Code(s): N17.9 - Acute kidney failure, unspecified
--- NOTE | 2018-05-28 11:36 | P.PCN ---
Date of procedure: 05/28/18 Pre-op diagnosis: Acute respiratory failure, rhabdomyolysis, elevated LFTs, hypotension Post-op diagnosis: same Procedure: PROCEDURE PERFORMED left internal jugular vein central venous catheter placement under ultrasound guidance. INDICATIONS hypotension requiring pressors INFORMED CONSENT Not obtained as emergent procedure in [facility]/ pressors ANESTHESIA 1% Lidocaine for local infiltration anesthesia. PROCEDURE After sterile prepping and draping using 1% lidocaine for local infiltration anesthesia, the left internal jugular vein was visualized using an ultrasound vessel finder and under direct visualization was cannulated using an introducer angiocath with dark non-pulsatile blood return. An Angiocath was advanced into the internal jugular vein without any resistance and the needle was then removed. Blood return was confirmed through the Angiocath following which a guidewire was passed through the Angiocath into the left internal jugular vein without any resistance and the Angiocath was then removed. After making a skin valentina and dilation of tract, a 20 cm antimicrobial coated triple lumen catheter was passed over the guidewire by modified Seldinger technique into the left internal jugular vein up to the 18 cm liz and the guidewire was then removed. Good blood return obtained through all three ports which were then flushed and capped. After securing the catheter in place with a statlock, a Bio-occlusive dressing with Biopatch was applied to the site. The patient tolerated the procedure well with no immediate complications noted. A postprocedure chest x-ray was ordered and will be reviewed when available.
--- NOTE | 2018-05-28 12:06 | P.CON ---
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 Primary Care Provider: [facility] Chief Complaint: NAUSEA AND VOMITING AND DIARRHEA History of Present Illness: 53-year-old gentleman with a history of alcohol abuse was admitted with nausea and vomiting. He was then found to be hypoxic with change in mental status hence he was intubated and transferred to the ICU hematology consultation was requested for his history of hairy cell leukemia. Patient is intubated and is possibly sedated hence unable to give any history. 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 It is unclear if he has followed up with hematology physician recently. Either way he is not known to have a relapse of the disease in the recent past. 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 [facility] - History History Provided By: Patient, Family Member - Medical / Surgical Hx Neg / Unobtainable Medical Problems Denied: Yes (Hairy cell leukemia.) - Medical History Medical History: Medical History (Last Reviewed 05/31/18 @ 07:50 by Polly Cha) Hairy cell leukemia Alcohol abuse Diverticulosis Enlarged prostate HTN (hypertension) Hemorrhoids Hypercholesterolemia Leukemia Sleep apnea Smoker - Surgical History Surgical History: Surgical History (Last Reviewed 05/31/18 @ 07:50 by Polly Cha) History of hernia repair - Family History Family History: Family History (Last Reviewed 05/27/18 @ 11:55 by Nela Armando) Other Family history of hypertension - Social History I have reviewed the patient's Social History: Yes - Tobacco History Second Hand Smoke Exposure: No Tobacco Use In Past 30 Days: Yes Smoking Status: Current every day smoker Tobacco Type: Cigarettes - Alcohol History How Often Do You Have a Drink Containing Alcohol: 2 to 3 times a week - Substance Use History Substance History: No History of Abuse - Substance Use Type Marijuana Status: Early Remission Route Used: Inhalation Frequency: weekly Reason for Use: Calm Down - Travel History History of Recent Travel: No [facility] Within the Last 8 Weeks: No Recent Travel Out of the Country Within the Last 8 Weeks: No - Immunization History Tetanus Immunization: Unsure Hx Influenza Vaccine This Season: No Medications and Allergies Active Medications: Active Medications Acetaminophen (Tylenol) 650 mg PO Q4H PRN PRN Reason: Temp > 100.4 Acetaminophen (Tylenol) 650 mg PO UNSCH PRN PRN Reason: SEE LABEL COMMENTS Al Hydroxide/Mg Hydroxide (Milk Of Magnpineda Liq) 30 ml PO Q12H PRN PRN Reason: Mild Constipation Albuterol (Duoneb Neb (Prn)) 1 ampul NEB Q2HR NEB PRN PRN Reason: WHEEZING Albuterol (Duoneb Neb (Nakia)) 1 ampul NEB Q6HR NEB NAKIA Last Admin: 05/28/18 08:17 Dose: 1 ampul Bisacodyl (Dulcolax Supp) 10 mg RECTAL DAILY PRN PRN Reason: SEVERE CONSITIPATION Bisacodyl (Dulcolax Supp) 10 mg RECTAL DAILY PRN PRN Reason: if no BM in last 24h Calcium Acetate (Phoslo) 667 mg PO TID [facility] Last Admin: 05/27/18 18:44 Dose: 667 mg Chlorhexidine Gluconate (Peridex 0.12% Oral Kit) 15 ml OROPHARYNG BID@0800, 2000 [facility] Last Admin: 05/28/18 08:57 Dose: 15 ml Chlorhexidine Gluconate (Chlorhexidine 2% Cloth) 3 pack TOPICAL DAILY@0400 [facility] Stop: 06/03/18 03:59 Chlorhexidine Gluconate (Chlorhexidine 2% Cloth) 3 pack TOPICAL DAILY@0400 PRN PRN Reason: Extra cloth needed Stop: 06/03/18 03:59 Dextrose (D50w Syringe) 50 ml IV.PUSH UNSCH PRN PRN Reason: PER HYPOGLYCEMIA PROTOCOL Diphenhydramine HCl (Benadryl) 25 mg PO UNSCH PRN PRN Reason: SEE LABEL COMMENTS Folic Acid (Folic Acid) 1 mg PO DAILY [facility] Stop: 05/31/18 14:59 Last Admin: 05/27/18 08:55 Dose: 1 mg Gelatin (Gelfoam 12 Mm/7 Mm Topical) 1 foam TOPICAL PRN PRN PRN Reason: help stop bleeding from site Gentamicin Sulfate (Gentamicin Inj) 20 mg OTHER WITH DIALYSIS PRN PRN Reason: Dwell Gentamycin Lock Glucagon (Glucagon Inj) 1 mg IM ONCE PRN PRN Reason: blood sugar < 60, no iv access Haloperidol Lactate (Haldol Inj) 5 mg IV.PUSH Q15M PRN PRN Reason: for severe agitation Heparin Sodium (Porcine) (Heparin Inj) 5,000 units SQ Q8HR [facility] Last Admin: 05/28/18 08:56 Dose: 5,000 units Heparin Sodium (Porcine) (Heparin Inj) 8,000 units OTHER WITH DIALYSIS PRN PRN Reason: for machine prime Heparin Sodium (Porcine) (Heparin Inj) 1,000 units OTHER WITH DIALYSIS PRN PRN Reason: Dwell Heparin to Fill Catheter Hydrocortisone Acetate (Hemorrhoidal Hc Supp) 25 mg RECTAL TID [facility] Last Admin: 05/27/18 18:44 Dose: 25 mg Ciprofloxacin/Dextrose (Cipro 200 Mg/100 Ml Inj) 200 mg in 100 mls @ 100 mls/ hr IV.SIG Q24H [facility] Last Infusion: 05/27/18 13:25 Dose: Infused Metronidazole/Sodium Chloride (Flagyl 500 Mg Inj) 100 mls @ 100 mls/hr IV.SIG Q8H [facility] Stop: 06/05/18 21:59 Last Infusion: 05/28/18 09:30 Dose: Infused Albumin Human (Flexbumin 25% Inj) 100 mls @ 60 mls/hr IV.SIG WITH DIALYSIS PRN PRN Reason: hypotension / volume replace Last Infusion: 05/27/18 18:14 Dose: Infused Sodium Chloride (Ns Inj) 1,000 mls @ 0 mls/hr OTHER .Q0M PRN PRN Reason: for prime and rinse back Sodium Chloride (Ns Inj) 1,000 mls @ 200 mls/hr OTHER .Q5H PRN PRN Reason: for dialyzer flush PRN Sodium Chloride (Ns Inj) 1,000 mls @ 0 mls/hr IV.CONT .Q0M PRN PRN Reason: hypotension / volume replace Propofol (Diprivan 1000 Mg/100 Ml Inj) 1,000 mg in 100 mls @ 2.076 mls/hr IV.CONT TITRATE PRN; Protocol PRN Reason: Per Protocol Last Admin: 05/28/18 09:59 Dose: 5 mcg/kg/min, 2.08 mls/hr Fentanyl (Fentanyl 10 Mcg/Ml Premix Drip) 2,500 mcg in 250 mls @ 5 mls/hr IV.SIG TITRATE PRN; Protocol PRN Reason: Per Protocol Norepinephrine Bitartrate (Levophed-Dextrose 4 Mg/250 Ml Drip) 4 mg in 250 mls @ 7.5 mls/hr IV.SIG TITRATE PRN; Protocol PRN Reason: Per Protocol Last Titration: 05/28/18 07:00 Dose: 6 mcg/min, 22.5 mls/hr Insulin Human Regular (Novolin R Inj) 1 units SQ Q6HR NAKIA; Protocol Lactulose (Lactulose Liq) 30 ml PO DAILY PRN PRN Reason: SEVERE CONSITIPATION Lactulose (Lactulose Liq) 30 ml PO BID [facility] Mannitol (Mannitol Inj) 12.5 gm IV.PUSH UNSCH PRN PRN Reason: hypotension / volume replace Multivitamins/Minerals (Theragran-M) 1 tab PO DAILY [facility] Stop: 05/31/18 13:59 Last Admin: 05/27/18 08:55 Dose: 1 tab Nitroglycerin (Nitrostat Sl) 0.4 mg SL Q5M PRN PRN Reason: CHEST PAIN Ondansetron HCl (Zofran Inj) 4 mg IV.PUSH Q6H PRN PRN Reason: NAUSEA OR VOMITING Ondansetron HCl (Zofran Inj) 4 mg IV.PUSH UNSCH PRN PRN Reason: NAUSEA OR VOMITING Pantoprazole Sodium (Protonix) 40 mg PO DAILY [facility] Last Admin: 05/27/18 08:55 Dose: 40 mg Polyethylene Glycol (Miralax) 17 gm PO BID [facility] Senna/Docusate Sodium (Najma-Colace) 1 tab PO BID [facility] Last Admin: 05/27/18 20:19 Dose: 1 tab Senna/Docusate Sodium (Najma-Colace) 1 tab PO BID [facility] Sennosides (Senokot) 17.2 mg PO Q12H PRN PRN Reason: Moderate Constipation Sodium Chloride (Ns Flush) 5 ml IV.FLUSH PRN PRN PRN Reason: flush each lumen during HD Sodium Chloride (Ns Flush) 2 ml IV.FLUSH UNSCH PRN PRN Reason: FLUSH AFTER USING IV ACCESS Terbutaline Sulfate (Brethine Inj) 1 mg SQ UNSCH PRN PRN Reason: For Extravasation Thiamine HCl (Vitamin B1) 100 mg PO DAILY [facility] Last Admin: 05/27/18 08:55 Dose: 100 mg Zolpidem Tartrate (Ambien) 5 mg PO HS PRN PRN Reason: INSOMNIA Allergies Allergy/AdvReac Type Severity Reaction Status Date / Time No Known Allergies Allergy Unverified 05/26/18 08:51 Home Medications Medication Instructions Recorded Confirmed Type atorvastatin 80 mg PO DAILY 04/30/18 05/26/18 History lisinopril 10 mg PO DAILY 04/30/18 05/26/18 History Physical Exam Vital signs: Vital Signs 05/27/18 20:00 05/28/18 00:00 05/28/18 01:35 Temperature 97.6 F 97.4 F L Pulse Rate 105 H 90 Respiratory Rate 18 18 Blood Pressure 106/68 101/58 L Pulse Oximetry 93 L 96 98 05/28/18 01:50 05/28/18 05:35 05/28/18 08:20 Temperature 97.2 F L Pulse Rate 106 H 78 Respiratory Rate 22 16 16 Blood Pressure 119/58 L Pulse Oximetry 95 100 100 Intake & Output 05/27/18 05/28/18 05/28/18 18:59 06:59 18:59 Intake Total 1400 / 1400 100 / 100 100 / 100 Output Total 3000 / 3000 Balance -1600 / -1600 100 / 100 100 / 100 Intake: IV 1400 / 1400 100 / 100 100 / 100 Sodium Bicarbonate 8.4% Inj 75 1000 / 1000 MEQ In 1/2 Normal Saline Inj 925 ML @ 125 mls/hr IV.CONT . Q8H [facility] Rx#:[id number] Flexbumin 25% Inj 100 ML @ 60 200 / 200 mls/hr IV.SIG WITH DIALYSIS PRN Rx#:[id number] Cipro 200 MG/100 ML Inj 200 mg 100 / 100 In 100 ml @ 100 mls/hr IV.SIG Q24H [facility] Rx#:[id number] Flagyl 500 MG Inj 100 ML @ 100 100 / 100 100 / 100 100 / 100 mls/hr IV.SIG Q8H [facility] Rx#: [id number] Oral 0 / 0 Output: Hemodialysis Amount 3000 / 3000 Other: # Voids 1 Date of Last Bowel Movement 05/27/18 05/27/18 # Bowel Movements 1 - Constitutional obese, disheveled, obtunded - Routine HEENT Exam Head: Present: normocephalic, atraumatic - Detailed ENT Exam Oral mucosa: Present: dry (No evidence of active bleeding.) - Routine Respiratory Exam Present: CTA bilaterally - Routine Cardiovascular Exam Present: RRR, S1, S2 - Routine Abdominal Exam Present: soft, distended (Dilatation of the veins of the anterior abdominal wall noted.) - Detailed Abdominal Exam Bowel sounds: hypoactive (Bruising noted on the anterior abdominal wall at sites of injection.) - Routine Extremities Exam Present: clubbing, edema (No petechia or ecchymosis. Venous compression devices in place.) - Detailed Neurological Exam: Coma Scale Eye Opening: None Motor Response: None - Routine Psychiatric Exam Present: unable to assess - Urinary Catheter Management Indwelling Urethral Catheter Cath placed during this visit: yes, but has since been removed by the nurse Reason for continuing: Decision to DC catheter Insertion date: 05/28/18 Insertion time: 13:30 Removal date: 05/29/18 Removal time: 16:15 Assessment and Plan - Assessment (1) Hairy cell leukemia Code(s): C91.40 - Hairy cell leukemia not having achieved remission Status: Acute (2) Acute renal failure Code(s): N17.9 - Acute kidney failure, unspecified Status: Acute - Plan Mr. Klein is unfortunately in multiorgan failure and is intubated. He is requiring dialysis and he also appears to have rhabdomyolysis and acute liver injury. He does not have any evidence of recurrence of HCL and it does not seem to be any contribution of HCl to his acute medical problems. He has mild thrombocytopenia which could be multifactorial including DIC but he is not actively bleeding. His history of alcohol abuse is the most likely reason for his thrombocytopenia. In addition splenomegaly from alcoholic cirrhosis could be an underlying factor. Either way it does not require immediate management. More importantly he has no evidence of recurrence of hairy cell leukemia at this time. I will check a flow cytometry to confirm that and will follow him up in the hospital with you. This was discussed with patient's sister who is hematology and oncology nurse and understands the situation. She also understands patient's poor overall prognosis and explained it to her mother herself. We will be available for you in the ongoing management of this case from a hematologic point of view as needed. Please do not hesitate to contact us if we can be of any more help. (2) Acute renal failure Qualifiers: Acute renal failure type: unspecified Qualified Code(s): N17.9 - Acute kidney failure, unspecified
[2018-05-28] MEDS: Calcium Acetate 667 MG Capsule PO SCH ×3 (12:09→19:03)
[2018-05-28] MEDS: Hydrocortisone Acetate 25 MG Supp RECTAL SCH ×3 (12:10→19:03)
[2018-05-28] MEDS ORDERED: Midazolam Inj 5 MG/ML 1 ML Vial IV.PUSH ONE (12:45)
--- NOTE | 2018-05-28 13:33 | XR ---
EXAM DATE: 05/28/2018 12:37 PM EDT AGE/SEX: 53 years / Male INDICATIONS: Post central line placement CLINICAL DATA: This is the patient's subsequent encounter. Patient reports that signs and symptoms h ave been present for 4 - 6 days and indicates a pain score of Nonresponsive. MEDICAL/SURGICAL HISTORY: Leukemia. Renal failure, chronic. Hypertension. . hernia repair COMPARISON: [facility], CHEST 1V SINGLE AP, 05/28/2018. . FINDINGS: The cardiac silhouette is enlarged in transverse diameter. Support lines and tubes are in satisfactor y position. A left sided internal jugular vein catheter is in place without pneumothorax with its tip in the superior vena cava. A Vas-Cath is in place via right internal jugular approach with its tip in the superior vena cava. CONCLUSION: Uncomplicated line placement. No evidence of pneumothorax. Electronically signed by: Wayne Lopez MD 05/28/2018 1:32 PM EDT
[2018-05-28 14:04] LABS: Troponin I 0.34 ng/mL (0.02-0.05)
[2018-05-28] MEDS: Folic Acid 1 MG Tablet PO SCH (14:13)
[2018-05-28] MEDS: Multivitamin/Minerals Therapeutic Tablet PO SCH (14:14)
[2018-05-28] MEDS: Polyethylene Glycol 3350 17 GM Packet PO SCH ×2 (14:14→21:34)
[2018-05-28] MEDS: Senna/Docusate Sodium 8.6/50 MG Tablet PO SCH ×4 (14:14→21:35)
[2018-05-28] MEDS: Oral Hygiene Kit OROPHARYNG SCH ×2 (14:15→16:47)
[2018-05-28] MEDS: Ciprofloxacin 200 MG/100 ML 200 MG/100 ML PIGGYBACK IV.SIG SCH (14:35)
[2018-05-28 14:50] LABS: CKMB Percent 0.1 % (0.0-4.0); Creatine Kinase MB 72.7 ng/mL (0.5-3.6)
--- NOTE | 2018-05-28 17:41 | P.PNNP ---
Subjective Interval history: Events noted. Patient has been intubated. Dialyzed today. Oligoanuric. Apparently has a diagnosis of hairy cell leukemia. Physical Exam Vital signs: Vital Signs 05/27/18 20:00 05/28/18 00:00 05/28/18 01:35 Temperature 97.6 F 97.4 F L Pulse Rate 105 H 90 Respiratory Rate 18 18 Blood Pressure 106/68 101/58 L Pulse Oximetry 93 L 96 98 05/28/18 01:50 05/28/18 05:35 05/28/18 08:20 Temperature 97.2 F L Pulse Rate 106 H 78 Respiratory Rate 22 16 16 Blood Pressure 119/58 L Pulse Oximetry 95 100 100 05/28/18 08:51 05/28/18 09:00 05/28/18 09:16 Temperature 98.2 F Pulse Rate 79 80 86 Respiratory Rate 16 16 16 Blood Pressure 97/58 L 108/68 123/71 Pulse Oximetry 100 100 100 05/28/18 09:30 05/28/18 09:45 05/28/18 10:00 Temperature Pulse Rate 85 75 83 Respiratory Rate 16 16 16 Blood Pressure 102/79 109/72 112/67 Pulse Oximetry 100 100 100 05/28/18 10:15 05/28/18 10:30 05/28/18 10:45 Temperature Pulse Rate 78 71 73 Respiratory Rate 16 16 16 Blood Pressure 107/64 101/56 L 101/62 Pulse Oximetry 100 100 100 05/28/18 11:00 05/28/18 11:15 05/28/18 11:30 Temperature Pulse Rate 74 77 80 Respiratory Rate 16 16 16 Blood Pressure 100/61 105/66 108/70 Pulse Oximetry 100 74 L 100 05/28/18 11:45 05/28/18 12:00 05/28/18 12:15 Temperature 98.6 F Pulse Rate 77 74 73 Respiratory Rate 16 16 16 Blood Pressure 98/59 L 100/60 99/62 L Pulse Oximetry 100 100 100 05/28/18 12:30 05/28/18 12:45 05/28/18 12:57 Temperature Pulse Rate 75 69 Respiratory Rate 16 16 16 Blood Pressure 100/64 100/60 Pulse Oximetry 100 100 100 05/28/18 13:00 05/28/18 13:15 05/28/18 16:39 Temperature Pulse Rate 71 69 73 Respiratory Rate 16 16 16 Blood Pressure 103/64 101/63 Pulse Oximetry 100 100 100 Intake & Output 05/27/18 05/28/18 05/28/18 18:59 06:59 18:59 Intake Total 1400 / 1400 100 / 100 1225 / 1225 Output Total 3000 / 3000 3500 / 3500 Balance -1600 / -1600 100 / 100 -2275 / -2275 Weight 69.2 kg Intake: IV 1400 / 1400 100 / 100 1225 / 1225 Sodium Bicarbonate 8.4% Inj 75 1000 / 1000 MEQ In 1/2 Normal Saline Inj 925 ML @ 125 mls/hr IV.CONT . Q8H [facility] Rx#:[id number] Flexbumin 25% Inj 100 ML @ 60 200 / 200 mls/hr IV.SIG WITH DIALYSIS PRN Rx#:[id number] Cipro 200 MG/100 ML Inj 200 mg 100 / 100 100 / 100 In 100 ml @ 100 mls/hr IV.SIG Q24H [facility] Rx#:[id number] Flagyl 500 MG Inj 100 ML @ 100 100 / 100 100 / 100 200 / 200 mls/hr IV.SIG Q8H [facility] Rx#: [id number] Oral 0 / 0 Output: Hemodialysis Amount 3000 / 3000 3500 / 3500 Other: # Voids 1 Date of Last Bowel Movement 05/27/18 05/27/18 # Bowel Movements 1 Narrative: GENERAL: Middle-age male intubated. HEENT: Normocephalic. Atraumatic. Pupils equal, round, reactive, conjugate. Mucous membranes are dry NECK: Trachea is midline. There is no JVD. CHEST: vented breath sounds. CARDIOVASCULAR: tachycardic. ABDOMEN: Soft, nontender, nondistended. No guarding. MUSCULOSKELETAL: Pulses 2+. No peripheral edema. Assessment and Plan - Assessment (1) RADHA (acute kidney injury) Code(s): N17.9 - Acute kidney failure, unspecified Status: Acute Plan: He has underlying CKD, baseline creatinine was 1.5-1.6 earlier this year. RADHA is due to rhabdomyolysis. Imaging negative for obstruction. Dialysis initiated on 05/27. Dialyzed again today. Continue to monitor urine output. He has significant proteinuria. Follow CPK. Hold home lisinopril, avoid other nephrotoxins. Repeat labs daily. (2) Rhabdomyolysis due to statin therapy Code(s): M62.82 - Rhabdomyolysis Status: Acute Plan: Did not improve with hydration, now on HD. (3) Metabolic acidosis Code(s): E87.2 - Acidosis Status: Acute Plan: Due to renal failure Improved. (4) ETOH abuse Code(s): F10.10 - Alcohol abuse, uncomplicated Status: Acute Plan: Discussed cessation He does not exhibit signs of withdrawal. chronic hyponatremia is noted, and may be due to beer potomania. Monitor. (5) Respiratory failure Code(s): J96.90 - Respiratory failure, unspecified, unspecified whether with hypoxia or hypercapnia Status: Acute Plan: patient now intubated, on the ventilator. Hard Hat Diver managing.
[2018-05-28] MEDS: Sod Chloride 0.9% Inj 1,000 ML IV.SIG SCH (19:04)
[2018-05-29] MEDS: Propofol 1000 mg/100 ml Inj 1,000 MG/100 ML BOTTLE IV.CONT PRN ×3 (00:36→05:22)
[2018-05-29] MEDS: Oral Hygiene Kit OROPHARYNG SCH ×4 (00:37→17:01)
[2018-05-29] MEDS: Chlorhexidine Gluconate 2% 1 Pack (2 Cloths) TOPICAL SCH (03:03)
[2018-05-29] MEDS ORDERED: Chlorhexidine Gluconate 2% 1 Pack (2 Cloths) TOPICAL PRN (04:00)
[2018-05-29] MEDS: Heparin - SQ 10,000 UNITS/ML Vial SQ SCH ×3 (05:22→21:15)
[2018-05-29 06:06] LABS: Baso # (Auto) 0.1 th/mm3 (0.0-0.2); Baso % (Auto) 1.5 % (0.0-2.0); Eos % (Auto) 0.5 % (0.0-4.0); Hematocrit 31.1 % (39.0-51.0); Hemoglobin 11.1 gm/dL (13.0-17.0); Lymph # (Auto) 1.5 th/mm3 (1.0-4.8); Lymph % (Auto) 15.2 % (9.0-44.0); Mean Corpuscular HGB Conc 35.5 % (32.0-36.0); Mean Corpuscular Volume 106.9 fL (80.0-100.0); Mean Platelet Volume 9.5 fL (7.0-11.0); Mono # (Auto) 0.8 th/mm3 (0.0-0.9); Mono % (Auto) 8.2 % (0.0-8.0); Neut # (Auto) 7.2 th/mm3 (1.8-7.7); Neut % (Auto) 74.6 % (16.0-70.0); Platelet Count 157 th/mm3 (150-450); Red Blood Count 2.91 mil/mm3 (4.50-5.90); Red Cell Distribution Width 18.1 % (11.6-17.2); White Blood Count 9.6 th/mm3 (4.0-11.0)
[2018-05-29 06:11] LABS: INR 1.2 Ratio; Prothrombin Time 12.2 sec (9.8-11.6)
[2018-05-29 06:13] LABS: ABG Base Excess -2.9 mmol/L (-2-2); ABG PCO2 36 mmHg (38-42); ABG PO2 108 mmHg (61-120)
--- NOTE | 2018-05-29 06:15 | XR ---
EXAM DATE: 05/29/2018 5:47 AM EDT AGE/SEX: 53 years / Male INDICATIONS: Respiratory status. Atelectasis. CLINICAL DATA: This is the patient's subsequent encounter. Patient reports that signs and symptoms h ave been present for 4 - 6 days and indicates a pain score of Nonresponsive. MEDICAL/SURGICAL HISTORY: Non-responsive. Non-responsive. COMPARISON: [facility], CHEST 1V SINGLE AP, 05/28/2018. . FINDINGS: Increasing consolidation in the left lower lung with loss of delineation of the entire left hemidiaph ragm. The right lung is clear. Gastric tube traverses the [id number]. Right internal jugular Vas-C ath tip projects in the right atrium. Left IJ catheter tip projects in the right atrium. CONCLUSION: Increasing consolidation in the left lower lung. Electronically signed by: Man Rubio MD 05/29/2018 6:14 AM EDT
[2018-05-29 07:10] LABS: Calcium 6.2 mg/dL (8.5-10.1); Carbon Dioxide 22.4 meq/L (21.0-32.0); Phosphorus 6.1 mg/dL (2.5-4.9); Potassium 4.7 meq/L (3.5-5.1); Total Protein 5.9 g/dL (6.4-8.2); Troponin I 0.24 ng/mL (0.02-0.05)
[2018-05-29 07:48] LABS: CKMB Percent 0.1 % (0.0-4.0); Creatine Kinase MB 34.5 ng/mL (0.5-3.6)
[2018-05-29] MEDS: Chlorhexidine 0.12% Oral Kit 15 ML UDC OROPHARYNG SCH ×2 (08:04→20:35)
[2018-05-29 08:37] LABS: ABG Base Excess -2.1 mmol/L (-2-2); ABG PCO2 42 mmHg (38-42); ABG PO2 123 mmHg (61-120)
[2018-05-29] MEDS ORDERED: Calcium Chloride Inj 1 GM in Sodium Chlor 0.9% Inj 100 ML IV.SIG ONE (10:00)
[2018-05-29] MEDS: Senna/Docusate Sodium 8.6/50 MG Tablet PO SCH ×4 (10:34→20:36)
[2018-05-29] MEDS: Polyethylene Glycol 3350 17 GM Packet PO SCH ×2 (10:34→20:35)
[2018-05-29] MEDS: Calcium Acetate 667 MG Capsule PO SCH ×3 (10:49→17:53)
[2018-05-29] MEDS: Hydrocortisone Acetate 25 MG Supp RECTAL SCH ×4 (10:49→17:01)
[2018-05-29] MEDS: Multivitamin/Minerals Therapeutic Tablet PO SCH (10:49)
[2018-05-29] MEDS: Folic Acid 1 MG Tablet PO SCH (10:49)
--- NOTE | 2018-05-29 11:10 | P.PNCA ---
Subjective Interval history: extubated, lethargic, denies chest pain in nad Physical Exam Vital signs: Vital Signs 05/28/18 11:15 05/28/18 11:30 05/28/18 11:45 Temperature Pulse Rate 77 80 77 Respiratory Rate 16 16 16 Blood Pressure 105/66 108/70 98/59 L Pulse Oximetry 74 L 100 100 05/28/18 12:00 05/28/18 12:15 05/28/18 12:30 Temperature 98.6 F Pulse Rate 74 73 75 Respiratory Rate 16 16 16 Blood Pressure 100/60 99/62 L 100/64 Pulse Oximetry 100 100 100 05/28/18 12:45 05/28/18 12:57 05/28/18 13:00 Temperature Pulse Rate 69 71 Respiratory Rate 16 16 16 Blood Pressure 100/60 103/64 Pulse Oximetry 100 100 100 05/28/18 13:15 05/28/18 14:00 05/28/18 15:00 Temperature Pulse Rate 69 75 68 Respiratory Rate 16 16 17 Blood Pressure 101/63 99/59 L 104/67 Pulse Oximetry 100 100 100 05/28/18 15:15 05/28/18 15:30 05/28/18 15:45 Temperature Pulse Rate 75 70 66 Respiratory Rate 16 16 16 Blood Pressure 113/70 101/58 L 100/62 Pulse Oximetry 100 98 99 05/28/18 16:00 05/28/18 16:15 05/28/18 16:30 Temperature 98.6 F Pulse Rate 69 67 72 Respiratory Rate 16 16 16 Blood Pressure 96/57 L 95/62 L 101/58 L Pulse Oximetry 100 99 99 05/28/18 16:39 05/28/18 16:45 05/28/18 17:00 Temperature Pulse Rate 73 70 77 Respiratory Rate 16 17 30 H Blood Pressure 99/64 L 106/59 L Pulse Oximetry 100 100 95 05/28/18 17:15 05/28/18 18:00 05/28/18 18:30 Temperature Pulse Rate 68 88 91 H Respiratory Rate 16 16 16 Blood Pressure 110/60 96/61 L 94/55 L Pulse Oximetry 100 97 98 05/28/18 18:45 05/28/18 20:00 05/28/18 20:14 Temperature 97.5 F L Pulse Rate 89 85 90 Respiratory Rate 16 19 16 Blood Pressure 102/59 L 118/64 Pulse Oximetry 100 100 95 05/28/18 23:33 05/29/18 00:00 05/29/18 04:00 Temperature 98.8 F 98.9 F Pulse Rate 92 H 90 Respiratory Rate 16 16 16 Blood Pressure 109/67 108/62 Pulse Oximetry 97 95 97 05/29/18 04:58 05/29/18 05:09 05/29/18 08:03 Temperature Pulse Rate 86 92 H Respiratory Rate 16 19 19 Blood Pressure Pulse Oximetry 98 95 05/29/18 08:51 Temperature Pulse Rate Respiratory Rate Blood Pressure Pulse Oximetry 97 Intake & Output 05/28/18 05/29/18 05/29/18 18:59 06:59 18:59 Intake Total 1735 / 1735 810 / 810 400 / 400 Output Total 3530 / 3530 20 / 20 Balance -1795 / -1795 790 / 790 400 / 400 Weight 69.2 kg 104.5 kg Intake: IV 1675 / 1675 750 / 750 400 / 400 Diprivan 1000 mg/100 ml Inj 1, 200 / 200 400 / 400 50 / 50 000 mg In 100 ml @ 5 MCG/KG/MIN 2.076 mls/hr IV.CONT TITRATE PRN Rx#:[id number] Cipro 200 MG/100 ML Inj 200 mg 100 / 100 In 100 ml @ 100 mls/hr IV.SIG Q24H [facility] Rx#:[id number] Levophed-Dextrose 4 mg/250 ml 250 / 250 250 / 250 250 / 250 Drip 4 mg In 250 ml @ 2 MCG/MIN 7.5 mls/hr IV.SIG TITRATE PRN Rx#:[id number] Flagyl 500 MG Inj 100 ML @ 100 200 / 200 100 / 100 100 / 100 mls/hr IV.SIG Q8H [facility] Rx#: [id number] Oral 0 / 0 Tube Irrigant 60 / 60 60 / 60 Output: Hemodialysis Amount 3500 / 3500 Urine Amount (Catheter) Indwelling Urethral Catheter Other: Date of Last Bowel Movement 05/27/18 - Urinary Catheter Management Indwelling Urethral Catheter Cath placed during this visit: yes Reason for continuing: Hourly intake/output Insertion date: 05/28/18 Insertion time: 13:30 Assessment and Plan - Assessment (1) Thrombocytopenia Code(s): D69.6 - Thrombocytopenia, unspecified Status: Acute (2) Anemia Code(s): D64.9 - Anemia, unspecified Status: Acute (3) Leukemia Code(s): C95.90 - Leukemia, unspecified not having achieved remission Status: Acute (4) NSTEMI (non-ST elevated myocardial infarction) Code(s): I21.4 - Non-ST elevation (NSTEMI) myocardial infarction Status: Acute (5) Tobacco abuse Code(s): Z72.0 - Tobacco use Status: Acute (6) RADHA (acute kidney injury) Code(s): N17.9 - Acute kidney failure, unspecified Status: Acute (7) ETOH abuse Code(s): F10.10 - Alcohol abuse, uncomplicated Status: Acute (8) Rectal pain Code(s): K62.89 - Other specified diseases of anus and rectum Status: Deleted (9) Metabolic acidosis Code(s): E87.2 - Acidosis Status: Acute (10) Diverticulitis Code(s): K57.92 - Diverticulitis of intestine, part unspecified, without perforation or abscess without bleeding Status: Acute (11) Acute renal failure Code(s): N17.9 - Acute kidney failure, unspecified Status: Acute (12) Transaminitis Code(s): R74.0 - Nonspecific elevation of levels of transaminase and lactic acid dehydrogenase [LDH] Status: Acute (13) Alcohol abuse Code(s): F10.10 - Alcohol abuse, uncomplicated Status: Acute - Plan 1.) NSTEMI - suspect trop elevation due to arf which appears to be due to rhabdomyolysis, he is assymptomatic 2.) Afib - 2d echo ef=50%, f/u hematology consult to better define risks/ benefits of ac 3.) Respiratory failure - ef=50% on echo, assymptomatic 05/27/18, possibly due to volume overload from arf, f/u bnp, retrend trop and cpk; d/w Dr George (11) Acute renal failure Qualifiers: Acute renal failure type: unspecified Qualified Code(s): N17.9 - Acute kidney failure, unspecified
--- NOTE | 2018-05-29 12:11 | P.PNCC ---
Subjective Subjective Remarks/Hospital Course: 05/28: This is a 53-year-old male who was rapid response from the floor for acute hypoxemia and change in mental status. Per nursing report he was agitated and per the medical record has a history of alcoholism and alcohol withdrawal. Earlier today he sustained a fall, but nursing report states that they did not take them for head CT due to new somnolence. When I evaluated the patient the rapid response he was obtunded, acutely hypoxemic, accurately respirating. We emergently transferred to the ICU and intubated the patient, see separate procedure note for details. We did go down for stat head CT which was negative for acute bleed. He has laboratory evidence of new acute renal failure requiring renal replacement therapy, new acute liver injury. After intubation he was hypotensive requiring vasopressors. No additional information is available from patient due to his acute medical condition and review of systems is unobtainable. 05/29: History of statin induced rhabdomyolysis. Much more awake today off sedation following commands. Initiated CPAP trials Objective Vital Signs / I&O: Vital Signs 05/28/18 12:15 05/28/18 12:30 05/28/18 12:45 Temperature Pulse Rate 73 75 69 Respiratory Rate 16 16 16 Blood Pressure 99/62 L 100/64 100/60 Pulse Oximetry 100 100 100 05/28/18 12:57 05/28/18 13:00 05/28/18 13:15 Temperature Pulse Rate 71 69 Respiratory Rate 16 16 16 Blood Pressure 103/64 101/63 Pulse Oximetry 100 100 100 05/28/18 14:00 05/28/18 15:00 05/28/18 15:15 Temperature Pulse Rate 75 68 75 Respiratory Rate 16 17 16 Blood Pressure 99/59 L 104/67 113/70 Pulse Oximetry 100 100 100 05/28/18 15:30 05/28/18 15:45 05/28/18 16:00 Temperature 98.6 F Pulse Rate 70 66 69 Respiratory Rate 16 16 16 Blood Pressure 101/58 L 100/62 96/57 L Pulse Oximetry 98 99 100 05/28/18 16:15 05/28/18 16:30 05/28/18 16:39 Temperature Pulse Rate 67 72 73 Respiratory Rate 16 16 16 Blood Pressure 95/62 L 101/58 L Pulse Oximetry 99 99 100 05/28/18 16:45 05/28/18 17:00 05/28/18 17:15 Temperature Pulse Rate 70 77 68 Respiratory Rate 17 30 H 16 Blood Pressure 99/64 L 106/59 L 110/60 Pulse Oximetry 100 95 100 05/28/18 18:00 05/28/18 18:30 05/28/18 18:45 Temperature Pulse Rate 88 91 H 89 Respiratory Rate 16 16 16 Blood Pressure 96/61 L 94/55 L 102/59 L Pulse Oximetry 97 98 100 05/28/18 20:00 05/28/18 20:14 05/28/18 23:33 Temperature 97.5 F L Pulse Rate 85 90 Respiratory Rate 19 16 16 Blood Pressure 118/64 Pulse Oximetry 100 95 97 05/29/18 00:00 05/29/18 04:00 05/29/18 04:58 Temperature 98.8 F 98.9 F Pulse Rate 92 H 90 86 Respiratory Rate 16 16 16 Blood Pressure 109/67 108/62 Pulse Oximetry 95 97 05/29/18 05:09 05/29/18 08:00 05/29/18 08:03 Temperature 98.8 F Pulse Rate 95 H 92 H Respiratory Rate 19 20 19 Blood Pressure 109/52 L Pulse Oximetry 98 99 95 05/29/18 08:51 Temperature Pulse Rate Respiratory Rate Blood Pressure Pulse Oximetry 97 Intake & Output 05/28/18 05/29/18 05/29/18 18:59 06:59 18:59 Intake Total 1735 / 1735 810 / 810 400 / 400 Output Total 3530 / 3530 20 / 20 Balance -1795 / -1795 790 / 790 400 / 400 Weight 69.2 kg 104.5 kg Intake: IV 1675 / 1675 750 / 750 400 / 400 Diprivan 1000 mg/100 ml Inj 1, 200 / 200 400 / 400 50 / 50 000 mg In 100 ml @ 5 MCG/KG/MIN 2.076 mls/hr IV.CONT TITRATE PRN Rx#:[id number] Cipro 200 MG/100 ML Inj 200 mg 100 / 100 In 100 ml @ 100 mls/hr IV.SIG Q24H WEI Rx#:[id number] Levophed-Dextrose 4 mg/250 ml 250 / 250 250 / 250 250 / 250 Drip 4 mg In 250 ml @ 2 MCG/MIN 7.5 mls/hr IV.SIG TITRATE PRN Rx#:[id number] Flagyl 500 MG Inj 100 ML @ 100 200 / 200 100 / 100 100 / 100 mls/hr IV.SIG Q8H WEI Rx#: [id number] Oral 0 / 0 Tube Irrigant 60 / 60 60 / 60 Output: Hemodialysis Amount 3500 / 3500 Urine Amount (Catheter) / 20 Indwelling Urethral Catheter Other: Date of Last Bowel Movement 05/27/18 05/29/18 Result Diagrams: 05/29/18 05:50 05/29/18 05:50 Objective Remarks: HEENT/ Neuro: Sedated, orally intubated, Pallor present, no icterus, tongue/ mucosa moist Neck: No JVD Chest/Pulm: on mech vent, good air entry bilaterally, no wheezing or crackles CVS: S1-S2 regular, no murmur GI/abdomen: soft, nontender, bowel sounds sluggish Extremities: warm bilaterally, no edema Assessment and Plan - Assessment and Plan Plan: Assessment: 53-year-old male with acute hypoxic and hypercarbic respiratory failure and new acute severe metabolic encephalopathy with associated multiorgan failure. Critically ill. Admit ICU. Will need significant support for his acute multiple organ failure. Active problems: Acute metabolic encephalopathy Alcohol withdrawal syndrome Alcohol dependence Acute hypoxic and hypercarbic respiratory failure Acute hypotension and shock, likely multifactorial Elevated LFTs Acute renal failure probably secondary to rhabdomyolysis requiring renal replacement therapy Statin induced rhabdomyolysis Plan: Frequent neurochecks DC CIWA protocol Propofol and fentanyl for goal RASS -2 Avoid long-acting sedatives Vent bundle Head of bed elevated Nebs Wean FiO2 for goal SPO2 greater than 90% Tolerated CPAP trial, ABG satisfactory, patient extubated. Levophed for goal map greater than 65 Dialysis per nephrology. [place] catheter placed. Strict I's and O's, monitor and replete electrolytes, follow BN creatinine. Following extubation will initiate renal diet if tolerated GI prophylaxis/DVT prophylaxis Critically ill this time. Condition critical Time spent on critical care excluding procedures 40 minutes
[2018-05-29] MEDS: Ciprofloxacin 200 MG/100 ML 200 MG/100 ML PIGGYBACK IV.SIG SCH (13:29)
[2018-05-29] MEDS ORDERED: Digoxin Inj 500 MCG/2 ML Ampul IV.PUSH ONE (13:50)
[2018-05-29] MEDS: Vasopressin Inj 40 UNIT in Dextrose 5% in Water Inj 98 ML IV.CONT SCH ×2 (14:38)
[2018-05-29] MEDS: Sod Chloride 0.9% Inj 1,000 ML IV.SIG SCH (15:37)
[2018-05-30] MEDS: Oral Hygiene Kit OROPHARYNG SCH ×3 (00:30→12:41)
[2018-05-30] MEDS: Vasopressin Inj 40 UNIT in Dextrose 5% in Water Inj 98 ML IV.CONT SCH ×2 (01:15)
[2018-05-30] MEDS: Heparin - SQ 10,000 UNITS/ML Vial SQ SCH (05:09)
[2018-05-30] MEDS: Chlorhexidine Gluconate 2% 1 Pack (2 Cloths) TOPICAL SCH (05:09)
[2018-05-30 05:24] LABS: ABG Base Excess -3.6 mmol/L (-2-2); ABG PCO2 43 mmHg (38-42); ABG PO2 107 mmHg (61-120)
[2018-05-30 06:07] LABS: Baso # (Auto) 0.1 th/mm3 (0.0-0.2); Baso % (Auto) 1.8 % (0.0-2.0); Eos % (Auto) 0.2 % (0.0-4.0); Hematocrit 28.2 % (39.0-51.0); Hemoglobin 9.7 gm/dL (13.0-17.0); Lymph # (Auto) 1.3 th/mm3 (1.0-4.8); Lymph % (Auto) 18.5 % (9.0-44.0); Mean Corpuscular HGB Conc 34.2 % (32.0-36.0); Mean Corpuscular Hemoglobin 36.6 pg (27.0-34.0); Mean Corpuscular Volume 106.9 fL (80.0-100.0); Mean Platelet Volume 9.5 fL (7.0-11.0); Mono # (Auto) 0.5 th/mm3 (0.0-0.9); Mono % (Auto) 6.5 % (0.0-8.0); Neut # (Auto) 5.3 th/mm3 (1.8-7.7); Platelet Count 128 th/mm3 (150-450); Red Blood Count 2.64 mil/mm3 (4.50-5.90); White Blood Count 7.2 th/mm3 (4.0-11.0)
[2018-05-30 06:13] LABS: INR 1.2 Ratio; Prothrombin Time 12.1 sec (9.8-11.6)
[2018-05-30 06:37] LABS: Calcium 5.7 mg/dL (8.5-10.1); Magnesium 2.2 mg/dL (1.5-2.5); Phosphorus 7.4 mg/dL (2.5-4.9); Total Protein 5.9 g/dL (6.4-8.2)
[2018-05-30 06:38] LABS: Potassium 6.1 meq/L (3.5-5.1)
[2018-05-30] MEDS ORDERED: Dextrose 50% in Water 50 ML Vial IV.PUSH ONE (08:30)
[2018-05-30] MEDS: Chlorhexidine 0.12% Oral Kit 15 ML UDC OROPHARYNG SCH (08:45)
[2018-05-30] MEDS: Senna/Docusate Sodium 8.6/50 MG Tablet PO SCH ×3 (08:49→20:45)
[2018-05-30] MEDS: Multivitamin/Minerals Therapeutic Tablet PO SCH (08:49)
[2018-05-30] MEDS: Calcium Acetate 667 MG Capsule PO SCH ×2 (08:49→12:41)
[2018-05-30] MEDS: Folic Acid 1 MG Tablet PO SCH (08:49)
[2018-05-30] MEDS: Hydrocortisone Acetate 25 MG Supp RECTAL SCH (08:50)
[2018-05-30] MEDS: Polyethylene Glycol 3350 17 GM Packet PO SCH ×2 (08:50→20:45)
[2018-05-30] MEDS ORDERED: Calcium Gluconate Inj 1 GM in Sodium Chlor 0.9% Inj 100 ML IV.SIG ONE (09:30)
--- NOTE | 2018-05-30 12:11 | P.PNCA ---
Subjective Interval history: alert in nad, denies chest pain Physical Exam Vital signs: Vital Signs 05/29/18 15:26 05/29/18 16:00 05/29/18 19:30 Temperature 98.6 F Pulse Rate 114 H 104 H 101 H Respiratory Rate 24 21 17 Blood Pressure 115/64 Pulse Oximetry 98 96 05/29/18 20:00 05/30/18 00:00 05/30/18 03:00 Temperature 98.3 F 97.7 F Pulse Rate 96 H 102 H 88 Respiratory Rate 24 24 23 Blood Pressure 108/56 L 115/64 Pulse Oximetry 91 L 90 L 05/30/18 04:00 05/30/18 07:56 05/30/18 08:00 Temperature 97.9 F 97.9 F Pulse Rate 100 H 96 H 107 H Respiratory Rate 21 20 23 Blood Pressure 112/66 100/61 Pulse Oximetry 93 L 93 L 95 05/30/18 11:40 Temperature 98.1 F Pulse Rate 94 H Respiratory Rate 20 Blood Pressure 116/64 Pulse Oximetry 97 Intake & Output 05/29/18 05/30/18 05/30/18 18:59 06:59 18:59 Intake Total 1910 / 1910 700 / 700 110 / 110 Output Total 25 / 25 0 / 0 Balance 1885 / 1885 700 / 700 110 / 110 Weight 106.1 kg Intake: IV 1510 / 1510 300 / 300 110 / 110 Diprivan 1000 mg/100 ml Inj 1, 50 / 50 000 mg In 100 ml @ 5 MCG/KG/MIN 2.076 mls/hr IV.CONT TITRATE PRN Rx#:[id number] Pitressin Inj 40 UNIT In D5W 100 / 100 Inj 98 ML @ 0.04 UNITS/MIN 6 mls/hr IV.CONT CONT WEI Rx#: [id number] Calcium Chloride Inj 1 GM In NS 110 / 110 Inj 100 ML @ 110 mls/hr IV.SIG ONCE ONE Rx#:[id number] Calcium Gluconate Inj 1 GM In 110 / 110 NS Inj 100 ML @ 110 mls/hr IV. SIG ONCE ONE Rx#:[id number] Cipro 200 MG/100 ML Inj 200 mg 100 / 100 In 100 ml @ 100 mls/hr IV.SIG Q24H WEI Rx#:[id number] Levophed-Dextrose 4 mg/250 ml 400 / 400 Drip 4 mg In 250 ml @ 2 MCG/MIN 7.5 mls/hr IV.SIG TITRATE PRN Rx#:[id number] NS Inj 1,000 ML @ 50 mls/hr IV. 650 / 650 SIG .Q20H WEI Rx#:[id number] Flagyl 500 MG Inj 100 ML @ 100 200 / 200 200 / 200 mls/hr IV.SIG Q8H WEI Rx#: [id number] Oral 400 / 400 400 / 400 Output: Urine 0 / 0 Urine Amount (Catheter) Indwelling Urethral Catheter Other: # Voids 0 Date of Last Bowel Movement 05/29/18 05/29/18 05/29/18 # Oral Regurgitations 5 - Urinary Catheter Management Indwelling Urethral Catheter Cath placed during this visit: yes, but has since been removed by the nurse Reason for continuing: Decision to DC catheter Insertion date: 05/28/18 Insertion time: 13:30 Removal date: 05/29/18 Removal time: 16:15 Assessment and Plan - Assessment (1) Thrombocytopenia Code(s): D69.6 - Thrombocytopenia, unspecified Status: Acute (2) Anemia Code(s): D64.9 - Anemia, unspecified Status: Acute (3) Leukemia Code(s): C95.90 - Leukemia, unspecified not having achieved remission Status: Acute (4) NSTEMI (non-ST elevated myocardial infarction) Code(s): I21.4 - Non-ST elevation (NSTEMI) myocardial infarction Status: Acute (5) Tobacco abuse Code(s): Z72.0 - Tobacco use Status: Acute (6) RADHA (acute kidney injury) Code(s): N17.9 - Acute kidney failure, unspecified Status: Acute (7) ETOH abuse Code(s): F10.10 - Alcohol abuse, uncomplicated Status: Acute (8) Rectal pain Code(s): K62.89 - Other specified diseases of anus and rectum Status: Deleted (9) Metabolic acidosis Code(s): E87.2 - Acidosis Status: Acute (10) Diverticulitis Code(s): K57.92 - Diverticulitis of intestine, part unspecified, without perforation or abscess without bleeding Status: Acute (11) Acute renal failure Code(s): N17.9 - Acute kidney failure, unspecified Status: Acute (12) Transaminitis Code(s): R74.0 - Nonspecific elevation of levels of transaminase and lactic acid dehydrogenase [LDH] Status: Acute (13) Alcohol abuse Code(s): F10.10 - Alcohol abuse, uncomplicated Status: Acute - Plan 1.) NSTEMI - suspect trop elevation due to arf which appears to be due to rhabdomyolysis, he is assymptomatic 2.) Afib - 2d echo ef=50%, [id number] score=1, male gender, ac held due to unstable platelet count, hgb and liver functio, continue to f/u trends in lfts, hgb, plt ct 3.) Respiratory failure - ef=50% on echo, assymptomatic 05/27/18, possibly due to volume overload from arf, f/u bnp, retrend trop and cpk; d/w Dr George (11) Acute renal failure Qualifiers: Acute renal failure type: unspecified Qualified Code(s): N17.9 - Acute kidney failure, unspecified
--- NOTE | 2018-05-30 12:21 | P.PN ---
Subjective Interval history: Note for 05/29/18 late entry Patient had dialysis yesterday 3.5 L removed He was not feeling well Physical Exam Vital signs: Vital Signs 05/29/18 15:26 05/29/18 16:00 05/29/18 19:30 Temperature 98.6 F Pulse Rate 114 H 104 H 101 H Respiratory Rate 24 21 17 Blood Pressure 115/64 Pulse Oximetry 98 96 05/29/18 20:00 05/30/18 00:00 05/30/18 03:00 Temperature 98.3 F 97.7 F Pulse Rate 96 H 102 H 88 Respiratory Rate 24 24 23 Blood Pressure 108/56 L 115/64 Pulse Oximetry 91 L 90 L 05/30/18 04:00 05/30/18 07:56 05/30/18 08:00 Temperature 97.9 F 97.9 F Pulse Rate 100 H 96 H 107 H Respiratory Rate 21 20 23 Blood Pressure 112/66 100/61 Pulse Oximetry 93 L 93 L 95 05/30/18 11:40 Temperature 98.1 F Pulse Rate 94 H Respiratory Rate 20 Blood Pressure 116/64 Pulse Oximetry 97 Intake & Output 05/29/18 05/30/18 05/30/18 18:59 06:59 18:59 Intake Total 1910 / 1910 700 / 700 110 / 110 Output Total 25 / 25 0 / 0 Balance 1885 / 1885 700 / 700 110 / 110 Weight 106.1 kg Intake: IV 1510 / 1510 300 / 300 110 / 110 Diprivan 1000 mg/100 ml Inj 1, 50 / 50 000 mg In 100 ml @ 5 MCG/KG/MIN 2.076 mls/hr IV.CONT TITRATE PRN Rx#:[id number] Pitressin Inj 40 UNIT In D5W 100 / 100 Inj 98 ML @ 0.04 UNITS/MIN 6 mls/hr IV.CONT CONT WEI Rx#: [id number] Calcium Chloride Inj 1 GM In NS 110 / 110 Inj 100 ML @ 110 mls/hr IV.SIG ONCE ONE Rx#:[id number] Calcium Gluconate Inj 1 GM In 110 / 110 NS Inj 100 ML @ 110 mls/hr IV. SIG ONCE ONE Rx#:[id number] Cipro 200 MG/100 ML Inj 200 mg 100 / 100 In 100 ml @ 100 mls/hr IV.SIG Q24H WEI Rx#:[id number] Levophed-Dextrose 4 mg/250 ml 400 / 400 Drip 4 mg In 250 ml @ 2 MCG/MIN 7.5 mls/hr IV.SIG TITRATE PRN Rx#:[id number] NS Inj 1,000 ML @ 50 mls/hr IV. 650 / 650 SIG .Q20H WEI Rx#:[id number] Flagyl 500 MG Inj 100 ML @ 100 200 / 200 200 / 200 mls/hr IV.SIG Q8H WEI Rx#: [id number] Oral 400 / 400 400 / 400 Output: Urine 0 / 0 Urine Amount (Catheter) Indwelling Urethral Catheter Other: # Voids 0 Date of Last Bowel Movement 05/29/18 05/29/18 05/29/18 # Oral Regurgitations 5 - Constitutional no acute distress - Routine HEENT Exam Eye: Present: EOMI - Routine Neck Exam Present: supple - Routine Respiratory Exam Present: decreased breath sounds - Routine Cardiovascular Exam Present: S1, S2, irregular rhythm - Routine Abdominal Exam Present: soft, distended - Routine Extremities Exam Present: edema - Urinary Catheter Management Indwelling Urethral Catheter Cath placed during this visit: yes, but has since been removed by the nurse Reason for continuing: Decision to DC catheter Insertion date: 05/28/18 Insertion time: 13:30 Removal date: 05/29/18 Removal time: 16:15 Results - Labs CBC & Chem 7: 05/30/18 05:45 05/30/18 10:06 Laboratory Results - last 24 hr 05/28/18 05/29/18 05/29/18 17:00 13:20 17:11 WBC RBC Hgb Hct MCV MCH MCHC RDW Plt Count MPV Neut % (Auto) Lymph % (Auto) [place] % (Auto) Eos % (Auto) Baso % (Auto) Neut # (Auto) Lymph # (Auto) [place] # (Auto) Eos # (Auto) Baso # (Auto) WBC Differential Differential Comment PT INR Puncture Site Patient Temperature O2 Saturation ABG pH ABG pCO2 ABG pO2 ABG HCO3 ABG O2 Content ABG Base Excess ABG Methemoglobin Hemoglobin Carboxyhemoglobin O2 Delivery Device Liter Flow Inspired O2 Critical Value Sodium Potassium Chloride Carbon Dioxide Anion Gap BUN Creatinine Estimated GFR POC Glucose 356 H 250 H Random Glucose Calcium Prot Corrected Calcium Phosphorus Magnesium Total Bilirubin AST ALT Alkaline Phosphatase Ammonia B-Natriuretic Peptide Total Protein Albumin Immunophenotypic Anal 05/29/18 05/30/18 05/30/18 21:34 05:14 05:45 WBC 7.2 RBC 2.64 L Hgb 9.7 L Hct 28.2 L MCV 106.9 H MCH 36.6 H MCHC 34.2 RDW 18.0 H Plt Count 128 L MPV 9.5 Neut % (Auto) 73.0 H Lymph % (Auto) 18.5 [place] % (Auto) 6.5 Eos % (Auto) 0.2 Baso % (Auto) 1.8 Neut # (Auto) 5.3 Lymph # (Auto) 1.3 [place] # (Auto) 0.5 Eos # (Auto) 0.0 Baso # (Auto) 0.1 WBC Differential . Differential Comment Auto diff final PT INR Puncture Site Right radial Patient Temperature 98.6 O2 Saturation 95 ABG pH 7.32 L ABG pCO2 43 H ABG pO2 107 ABG HCO3 22 ABG O2 Content 13.3 ABG Base Excess -3.6 L ABG Methemoglobin 1.4 Hemoglobin 9.8 L Carboxyhemoglobin 1.7 O2 Delivery Device Nasal cannula Liter Flow 3.00 Inspired O2 21 Critical Value No Sodium Potassium Chloride Carbon Dioxide Anion Gap BUN Creatinine Estimated GFR POC Glucose 123 H Random Glucose Calcium Prot Corrected Calcium Phosphorus Magnesium Total Bilirubin AST ALT Alkaline Phosphatase Ammonia B-Natriuretic Peptide Total Protein Albumin Immunophenotypic Anal 05/30/18 05/30/18 05/30/18 05:45 05:45 05:45 WBC RBC Hgb Hct MCV MCH MCHC RDW Plt Count MPV Neut % (Auto) Lymph % (Auto) [place] % (Auto) Eos % (Auto) Baso % (Auto) Neut # (Auto) Lymph # (Auto) [place] # (Auto) Eos # (Auto) Baso # (Auto) WBC Differential Differential Comment PT 12.1 H INR 1.2 Puncture Site Patient Temperature O2 Saturation ABG pH ABG pCO2 ABG pO2 ABG HCO3 ABG O2 Content ABG Base Excess ABG Methemoglobin Hemoglobin Carboxyhemoglobin O2 Delivery Device Liter Flow Inspired O2 Critical Value Sodium 132 L Potassium 6.1 H D Chloride 94 L Carbon Dioxide 25.0 Anion Gap 13 BUN 64 H Creatinine 9.42 H Estimated GFR 6 L POC Glucose Random Glucose 142 H Calcium 5.7 L* Prot Corrected Calcium 6.2 L* Phosphorus 7.4 H D Magnesium 2.2 Total Bilirubin 5.8 H AST 1969 H ALT 771 H Alkaline Phosphatase 320 H Ammonia 38 H B-Natriuretic Peptide Total Protein 5.9 L Albumin 2.0 L Immunophenotypic Anal 05/30/18 05/30/18 05/30/18 05:45 10:06 11:49 WBC RBC Hgb Hct MCV MCH MCHC RDW Plt Count MPV Neut % (Auto) Lymph % (Auto) [place] % (Auto) Eos % (Auto) Baso % (Auto) Neut # (Auto) Lymph # (Auto) [place] # (Auto) Eos # (Auto) Baso # (Auto) WBC Differential Differential Comment PT INR Puncture Site Patient Temperature O2 Saturation ABG pH ABG pCO2 ABG pO2 ABG HCO3 ABG O2 Content ABG Base Excess ABG Methemoglobin Hemoglobin Carboxyhemoglobin O2 Delivery Device Liter Flow Inspired O2 Critical Value Sodium Potassium 5.6 H Chloride Carbon Dioxide Anion Gap BUN Creatinine Estimated GFR POC Glucose 182 H Random Glucose Calcium Prot Corrected Calcium Phosphorus Magnesium Total Bilirubin AST ALT Alkaline Phosphatase Ammonia B-Natriuretic Peptide 209 H Total Protein Albumin Immunophenotypic Anal - Procedures TO HAVE HD CATHETER PLACED TODAY Assessment and Plan - Assessment (1) RADHA (acute kidney injury) Code(s): N17.9 - Acute kidney failure, unspecified Status: Acute (2) Rhabdomyolysis due to statin therapy Code(s): M62.82 - Rhabdomyolysis Status: Acute (3) Metabolic acidosis Code(s): E87.2 - Acidosis Status: Acute (4) ETOH abuse Code(s): F10.10 - Alcohol abuse, uncomplicated Status: Acute (5) Respiratory failure Code(s): J96.90 - Respiratory failure, unspecified, unspecified whether with hypoxia or hypercapnia Status: Acute - Plan On dialysis 3.5 L was removed yesterday, he is not feeling well he is tired Continue supportive care Follows with Dr. Velazquez
[2018-05-30] MEDS: Ciprofloxacin 200 MG/100 ML 200 MG/100 ML PIGGYBACK IV.SIG SCH (12:40)
--- NOTE | 2018-05-30 13:14 | ECG ---
Date Performed: 05/28/2018 Time Performed: 12:26:41 PTAGE: 53 years EKG: ATRIAL FIBRILLATION WITH ABERRANT CONDUCTION OR VENTRICULAR PREMATURE COMPLEXES INDETERMINA TE AXIS LOW QRS VOLTAGE IN PRECORDIAL LEADS INCOMPLETE RIGHT BUNDLE BRANCH BLOCK SEPTAL MYOCARDIAL IN FARCTION , PROBABLY OLD ABNORMAL ECG PREVIOUS TRACING : 05/26/2018 19.27 Since the previous tracing, no significant change noted DOCTOR: Wayne Rodriguez Interpretating Date/Time 05/30/2018 13:12:08
--- NOTE | 2018-05-30 15:38 | P.PNNP ---
Subjective Interval history: Patient is awake trying to eat, spitting up Physical Exam Vital signs: Vital Signs 05/29/18 16:00 05/29/18 19:30 05/29/18 20:00 Temperature 98.6 F 98.3 F Pulse Rate 104 H 101 H 96 H Respiratory Rate 21 17 24 Blood Pressure 115/64 108/56 L Pulse Oximetry 98 96 91 L 05/30/18 00:00 05/30/18 03:00 05/30/18 04:00 Temperature 97.7 F 97.9 F Pulse Rate 102 H 88 100 H Respiratory Rate 24 23 21 Blood Pressure 115/64 112/66 Pulse Oximetry 90 L 93 L 05/30/18 07:56 05/30/18 08:00 05/30/18 11:40 Temperature 97.9 F 98.1 F Pulse Rate 96 H 107 H 94 H Respiratory Rate 20 23 20 Blood Pressure 100/61 116/64 Pulse Oximetry 93 L 95 97 Intake & Output 05/29/18 05/30/18 05/30/18 18:59 06:59 18:59 Intake Total 1910 / 1910 700 / 700 210 / 210 Output Total 25 / 25 0 / 0 Balance 1885 / 1885 700 / 700 210 / 210 Weight 106.1 kg Intake: IV 1510 / 1510 300 / 300 210 / 210 Diprivan 1000 mg/100 ml Inj 1, 50 / 50 000 mg In 100 ml @ 5 MCG/KG/MIN 2.076 mls/hr IV.CONT TITRATE PRN Rx#:[id number] Pitressin Inj 40 UNIT In D5W 100 / 100 Inj 98 ML @ 0.04 UNITS/MIN 6 mls/hr IV.CONT CONT WEI Rx#: [id number] Calcium Chloride Inj 1 GM In NS 110 / 110 Inj 100 ML @ 110 mls/hr IV.SIG ONCE ONE Rx#:[id number] Calcium Gluconate Inj 1 GM In 110 / 110 NS Inj 100 ML @ 110 mls/hr IV. SIG ONCE ONE Rx#:[id number] Cipro 200 MG/100 ML Inj 200 mg 100 / 100 100 / 100 In 100 ml @ 100 mls/hr IV.SIG Q24H WEI Rx#:[id number] Levophed-Dextrose 4 mg/250 ml 400 / 400 Drip 4 mg In 250 ml @ 2 MCG/MIN 7.5 mls/hr IV.SIG TITRATE PRN Rx#:[id number] NS Inj 1,000 ML @ 50 mls/hr IV. 650 / 650 SIG .Q20H WEI Rx#:[id number] Flagyl 500 MG Inj 100 ML @ 100 200 / 200 200 / 200 mls/hr IV.SIG Q8H WEI Rx#: [id number] Oral 400 / 400 400 / 400 Output: Urine 0 / 0 Urine Amount (Catheter) Indwelling Urethral Catheter Other: # Voids 0 Date of Last Bowel Movement 05/29/18 05/29/18 05/29/18 # Oral Regurgitations 5 - Constitutional no acute distress - Routine HEENT Exam Eye: Present: EOMI - Routine Neck Exam Present: supple - Routine Respiratory Exam Present: decreased breath sounds - Routine Cardiovascular Exam Present: RRR - Routine Abdominal Exam Present: soft, distended - Routine Extremities Exam Present: edema - Urinary Catheter Management Indwelling Urethral Catheter Cath placed during this visit: yes, but has since been removed by the nurse Reason for continuing: Decision to DC catheter Insertion date: 05/28/18 Insertion time: 13:30 Removal date: 05/29/18 Removal time: 16:15 Assessment and Plan - Assessment (1) RADHA (acute kidney injury) Code(s): N17.9 - Acute kidney failure, unspecified Status: Acute Plan: He has underlying CKD, baseline creatinine was 1.5-1.6 earlier this year. RADHA is due to rhabdomyolysis. Imaging negative for obstruction. Dialysis initiated on 05/27. Continue to monitor urine output. He has significant proteinuria. Follow CPK. Hold home lisinopril, avoid other nephrotoxins. Repeat labs daily. Patient potassium went up and is not resolving with medical treatment hemodialysis was called today (2) Rhabdomyolysis due to statin therapy Code(s): M62.82 - Rhabdomyolysis Status: Acute Plan: Did not improve with hydration, now on HD. (3) Metabolic acidosis Code(s): E87.2 - Acidosis Status: Acute Plan: Due to renal failure Improved. (4) ETOH abuse Code(s): F10.10 - Alcohol abuse, uncomplicated Status: Acute Plan: Discussed cessation He does not exhibit signs of withdrawal. chronic hyponatremia is noted, and may be due to beer potomania. Monitor. (5) Respiratory failure Code(s): J96.90 - Respiratory failure, unspecified, unspecified whether with hypoxia or hypercapnia Status: Acute Plan: patient now intubated, on the ventilator. Motor Driver managing.
--- NOTE | 2018-05-30 17:20 | P.PNCC ---
Subjective Subjective Remarks/Hospital Course: 05/28: This is a 53-year-old male who was rapid response from the floor for acute hypoxemia and change in mental status. Per nursing report he was agitated and per the medical record has a history of alcoholism and alcohol withdrawal. Earlier today he sustained a fall, but nursing report states that they did not take them for head CT due to new somnolence. When I evaluated the patient the rapid response he was obtunded, acutely hypoxemic, accurately respirating. We emergently transferred to the ICU and intubated the patient, see separate procedure note for details. We did go down for stat head CT which was negative for acute bleed. He has laboratory evidence of new acute renal failure requiring renal replacement therapy, new acute liver injury. After intubation he was hypotensive requiring vasopressors. No additional information is available from patient due to his acute medical condition and review of systems is unobtainable. 05/29: statin induced rhabdomyolysis. Much more awake today off sedation following commands. Initiated CPAP trials 05/30: Resting comfortably on room air. Complaining of significant body aches and muscle pains. He tells me that he was started on high-dose statin 3 months ago. To be dialyzed again today for hyperkalemia. Remains anuric. Off pressors since yesterday. Objective Vital Signs / I&O: Vital Signs 05/29/18 19:30 05/29/18 20:00 05/30/18 00:00 Temperature 98.3 F 97.7 F Pulse Rate 101 H 96 H 102 H Respiratory Rate 17 24 24 Blood Pressure 108/56 L 115/64 Pulse Oximetry 96 91 L 90 L 05/30/18 03:00 05/30/18 04:00 05/30/18 07:56 Temperature 97.9 F Pulse Rate 88 100 H 96 H Respiratory Rate 23 21 20 Blood Pressure 112/66 Pulse Oximetry 93 L 93 L 05/30/18 08:00 05/30/18 11:40 05/30/18 16:21 Temperature 97.9 F 98.1 F Pulse Rate 107 H 94 H 82 Respiratory Rate 23 20 23 Blood Pressure 100/61 116/64 Pulse Oximetry 95 97 Intake & Output 05/29/18 05/30/18 05/30/18 18:59 06:59 18:59 Intake Total 1910 / 1910 700 / 700 210 / 210 Output Total 25 / 25 0 / 0 Balance 1885 / 1885 700 / 700 210 / 210 Weight 106.1 kg Intake: IV 1510 / 1510 300 / 300 210 / 210 Diprivan 1000 mg/100 ml Inj 1, 50 / 50 000 mg In 100 ml @ 5 MCG/KG/MIN 2.076 mls/hr IV.CONT TITRATE PRN Rx#:[id number] Pitressin Inj 40 UNIT In D5W 100 / 100 Inj 98 ML @ 0.04 UNITS/MIN 6 mls/hr IV.CONT CONT [facility] Rx#: [id number] Calcium Chloride Inj 1 GM In NS 110 / 110 Inj 100 ML @ 110 mls/hr IV.SIG ONCE ONE Rx#:[id number] Calcium Gluconate Inj 1 GM In 110 / 110 NS Inj 100 ML @ 110 mls/hr IV. SIG ONCE ONE Rx#:[id number] Cipro 200 MG/100 ML Inj 200 mg 100 / 100 100 / 100 In 100 ml @ 100 mls/hr IV.SIG Q24H [facility] Rx#:[id number] Levophed-Dextrose 4 mg/250 ml 400 / 400 Drip 4 mg In 250 ml @ 2 MCG/MIN 7.5 mls/hr IV.SIG TITRATE PRN Rx#:[id number] NS Inj 1,000 ML @ 50 mls/hr IV. 650 / 650 SIG .Q20H [facility] Rx#:[id number] Flagyl 500 MG Inj 100 ML @ 100 200 / 200 200 / 200 mls/hr IV.SIG Q8H [facility] Rx#: [id number] Oral 400 / 400 400 / 400 Output: Urine 0 / 0 Urine Amount (Catheter) Indwelling Urethral Catheter Other: # Voids 0 Date of Last Bowel Movement 05/29/18 05/29/18 05/29/18 # Oral Regurgitations 5 Result Diagrams: 05/30/18 05:45 05/30/18 12:45 Objective Remarks: HEENT/Neuro: No pallor or icterus, tongue moist, CORY, Awake alert oriented 3 , nonfocal grossly, moving all 4 extremities Neck: Left IJ central line in place, right IJ Vas-Cath in place Chest/pulmonary: CTA bilaterally Cardiovascular: S1-S2 regular no gallop or murmur GI/abdomen: Soft, nontender, bowel sounds present Extremities: Warm bilaterally, no edema Assessment and Plan - Assessment and Plan Plan: Assessment: 53-year-old male with acute hypoxic and hypercarbic respiratory failure and new acute severe metabolic encephalopathy with associated multiorgan failure. Active problems: Acute metabolic encephalopathy Alcohol withdrawal syndrome Alcohol dependence Acute hypoxic and hypercarbic respiratory failure Acute hypotension and shock, likely multifactorial Elevated LFTs Acute renal failure probably secondary to rhabdomyolysis requiring renal replacement therapy Statin induced rhabdomyolysis Plan: Frequent neurochecks Off CIWA protocol Off all sedation Avoid long-acting sedatives Extubated following CPAP trial on 05/29, tolerating room air currently. Off levophed Dialysis per nephrology. Casilals catheter placed. Strict I's and O's, monitor and replete electrolytes, follow BUN creatinine. CPK trending down however still significant elevation. ID: On Cipro/Flagyl IV. We will stop antibiotics at this time is no clear-cut evidence of infection Renal diet GI prophylaxis/DVT prophylaxis Discussed with nephrology, discussed with CERTIFIED RESPIRATORY THERAPIST. Consult and transfer to hospitalist service for further medical management. Critical care will be signing off, please reconsult if needed.
[2018-05-30] MEDS: Zolpidem Tartrate 5 MG Tablet PO PRN (20:45)
[2018-05-31] MEDS: Heparin - SQ 10,000 UNITS/ML Vial SQ SCH ×5 (02:46→21:52)
[2018-05-31] MEDS: Oral Hygiene Kit OROPHARYNG SCH ×5 (02:47→19:31)
[2018-05-31 04:58] LABS: Baso % (Auto) 0.5 % (0.0-2.0); Eos # (Auto) 0.1 th/mm3 (0.0-0.4); Eos % (Auto) 0.9 % (0.0-4.0); Hematocrit 30.1 % (39.0-51.0); Hemoglobin 10.2 gm/dL (13.0-17.0); Lymph % (Auto) 11.9 % (9.0-44.0); Mean Corpuscular Hemoglobin 37.2 pg (27.0-34.0); Mean Corpuscular Volume 109.5 fL (80.0-100.0); Mean Platelet Volume 9.2 fL (7.0-11.0); Mono # (Auto) 0.5 th/mm3 (0.0-0.9); Mono % (Auto) 6.4 % (0.0-8.0); Neut # (Auto) 6.4 th/mm3 (1.8-7.7); Neut % (Auto) 80.3 % (16.0-70.0); Platelet Count 139 th/mm3 (150-450); Red Blood Count 2.75 mil/mm3 (4.50-5.90)
[2018-05-31 05:07] LABS: INR 1.2 Ratio; Prothrombin Time 11.8 sec (9.8-11.6)
[2018-05-31 05:23] LABS: Carbon Dioxide 28.1 meq/L (21.0-32.0); Potassium 4.9 meq/L (3.5-5.1); Total Protein 5.9 g/dL (6.4-8.2)
[2018-05-31 05:24] LABS: Albumin 1.9 g/dL (3.4-5.0); Calcium 6.5 mg/dL (8.5-10.1); Phosphorus 5.2 mg/dL (2.5-4.9)
[2018-05-31 05:59] LABS: Eosinophils 1 % (0-4); Lymphocytes 9 % (9-44); Metamyelocytes 3 % (0-1); Monocytes 4 % (0-8); Myelocytes 1 % (0-0); Promyelocyte 1 % (0-0); Tallied Nucleated RBC 1 (0-0)
[2018-05-31 06:00] LABS: Platelet Morphology Normal (Normal)
[2018-05-31] MEDS: Chlorhexidine Gluconate 2% 1 Pack (2 Cloths) TOPICAL SCH (07:01)
[2018-05-31] MEDS: Folic Acid 1 MG Tablet PO SCH (09:34)
[2018-05-31] MEDS: Hydrocortisone Acetate 25 MG Supp RECTAL SCH ×5 (09:34→19:32)
[2018-05-31] MEDS: Multivitamin/Minerals Therapeutic Tablet PO SCH (09:34)
[2018-05-31] MEDS: Senna/Docusate Sodium 8.6/50 MG Tablet PO SCH ×4 (09:34→20:32)
[2018-05-31] MEDS: Polyethylene Glycol 3350 17 GM Packet PO SCH ×2 (09:35→20:32)
[2018-05-31] MEDS: Calcium Acetate 667 MG Capsule PO SCH ×3 (09:35→17:11)
--- NOTE | 2018-05-31 09:35 | P.PNNP ---
Subjective Interval history: patient was seen and examined. He has been extubated. Alert and oriented. Physical Exam Vital signs: Vital Signs 05/30/18 11:40 05/30/18 16:00 05/30/18 16:21 Temperature 98.1 F 97.9 F Pulse Rate 94 H 92 H 82 Respiratory Rate 20 32 H 23 Blood Pressure 116/64 102/56 L Pulse Oximetry 97 05/30/18 20:00 05/30/18 21:17 05/31/18 00:00 Temperature 98.3 F 97.7 F Pulse Rate 112 H 106 H 113 H Respiratory Rate 25 H 16 22 Blood Pressure 124/60 116/65 Pulse Oximetry 96 05/31/18 04:00 Temperature 97.2 F L Pulse Rate 109 H Respiratory Rate 30 H Blood Pressure 101/55 L Pulse Oximetry Intake & Output 05/30/18 05/31/18 05/31/18 18:59 06:59 18:59 Intake Total 210 / 210 Output Total 1999 Balance 210 / 210 -1999 Weight 104.6 kg Intake: IV 210 / 210 Calcium Gluconate Inj 1 GM In 110 / 110 NS Inj 100 ML @ 110 mls/hr IV. SIG ONCE ONE Rx#:[id number] Cipro 200 MG/100 ML Inj 200 mg 100 / 100 In 100 ml @ 100 mls/hr IV.SIG Q24H [facility] Rx#:[id number] Output: Hemodialysis Amount 1999 Other: Date of Last Bowel Movement 05/29/18 05/29/18 Narrative: GENERAL: Middle-age male, obese, awake. HEENT: Normocephalic. Atraumatic. Pupils equal, round, reactive, conjugate. Mucous membranes are dry NECK: Trachea is midline. There is no JVD. CHEST: CTA CARDIOVASCULAR: tachycardic. ABDOMEN: Soft, nontender, nondistended. No guarding. MUSCULOSKELETAL: Pulses 2+. No peripheral edema. - Urinary Catheter Management Indwelling Urethral Catheter Cath placed during this visit: yes, but has since been removed by the nurse Reason for continuing: Decision to DC catheter Insertion date: 05/28/18 Insertion time: 13:30 Removal date: 05/29/18 Removal time: 16:15 Assessment and Plan - Assessment (1) RADHA (acute kidney injury) Code(s): N17.9 - Acute kidney failure, unspecified Status: Acute Plan: He has underlying CKD, baseline creatinine was 1.5-1.6 earlier this year. RADHA is due to rhabdomyolysis. Imaging negative for obstruction. Dialysis initiated on 05/27. Continue to monitor urine output. He has significant proteinuria. Follow CPK. Hold home lisinopril, avoid other nephrotoxins. Repeat labs daily. Dialysis today. Monitor for renal recovery, so far no signs. (2) Rhabdomyolysis due to statin therapy Code(s): M62.82 - Rhabdomyolysis Status: Acute Plan: Did not improve with hydration, now on HD. (3) Metabolic acidosis Code(s): E87.2 - Acidosis Status: Acute Plan: Due to renal failure Improved. (4) ETOH abuse Code(s): F10.10 - Alcohol abuse, uncomplicated Status: Acute Plan: Cessation has been advised. (5) Respiratory failure Code(s): J96.90 - Respiratory failure, unspecified, unspecified whether with hypoxia or hypercapnia Status: Acute Plan: improved.
[2018-05-31] MEDS: Chlorhexidine 0.12% Oral Kit 15 ML UDC OROPHARYNG SCH ×3 (12:25→20:26)
[2018-05-31] MEDS: Heparin 10,000 UNITS/10 ML Vial (for IV use) OTHER PRN (12:27)
--- NOTE | 2018-05-31 12:47 | P.PNIM ---
Subjective Interval history: Patient complains of rectal pain. He is anuric. Discussed with RN. Physical Exam Vital signs: Vital Signs 05/30/18 16:00 05/30/18 16:21 05/30/18 20:00 Temperature 97.9 F 98.3 F Pulse Rate 92 H 82 112 H Respiratory Rate 32 H 23 25 H Blood Pressure 102/56 L 124/60 Pulse Oximetry 05/30/18 21:17 05/31/18 00:00 05/31/18 04:00 Temperature 97.7 F 97.2 F L Pulse Rate 106 H 113 H 109 H Respiratory Rate 16 22 30 H Blood Pressure 116/65 101/55 L Pulse Oximetry 96 05/31/18 08:00 05/31/18 12:00 Temperature 97.9 F 98 F Pulse Rate 118 H 92 H Respiratory Rate 23 15 Blood Pressure 116/66 122/68 Pulse Oximetry Intake & Output 05/30/18 05/31/18 05/31/18 18:59 06:59 18:59 Intake Total 210 / 210 Output Total 1999 1500 / 1500 Balance 210 / 210 -1999 / -1500 / -1500 Weight 104.6 kg Intake: IV 210 / 210 Calcium Gluconate Inj 1 GM In 110 / 110 NS Inj 100 ML @ 110 mls/hr IV. SIG ONCE ONE Rx#:[id number] Cipro 200 MG/100 ML Inj 200 mg 100 / 100 In 100 ml @ 100 mls/hr IV.SIG Q24H [facility] Rx#:[id number] Output: Hemodialysis Amount 1999 1500 / 1500 Other: Date of Last Bowel Movement 05/29/18 05/29/18 05/29/18 Narrative: GENERAL: Obese male, in no apparent distress. CARDIOVASCULAR: Normal rate and regular rhythm without murmurs, gallops, or rubs. RESPIRATORY: Good respiratory efforts. Breath sounds equal and clear to auscultation bilaterally. GASTROINTESTINAL: Abdomen soft, non-tender, non-distended. Normal active bowel sounds MUSCULOSKELETAL: Extremities without cyanosis, or edema. NEURO: Alert & Oriented x4 to person, place, time, situation. Moves all ext x4 PSYCH: Appropriate mood and affect. - Urinary Catheter Management Indwelling Urethral Catheter Cath placed during this visit: yes, but has since been removed by the nurse Reason for continuing: Decision to DC catheter Insertion date: 09/07/18 Insertion time: 13:30 Removal date: 05/29/18 Removal time: 16:15 Results - Labs CBC & Chem 7: 05/31/18 04:25 05/31/18 04:25 Laboratory Results - last 24 hr 05/30/18 05/30/18 05/31/18 12:45 18:02 01:24 WBC RBC Hgb Hct MCV MCH MCHC RDW Plt Count MPV Prelim Diff (Auto) Neut % (Auto) Lymph % (Auto) Ness % (Auto) Eos % (Auto) Baso % (Auto) Neut # (Auto) Lymph # (Auto) Ness # (Auto) Eos # (Auto) Baso # (Auto) WBC Differential Seg Neuts % (Manual) Band Neuts % (Manual) Lymphocytes % (Manual) Monocytes % (Manual) Eosinophils % (Manual) Metamyelocytes % (Man) Myelocytes % (Man) Promyelocytes % (Man) Abs Neuts (Manual) Nucleated RBCs/100 WBC Differential Comment Platelet Estimate Platelet Morphology PT INR Sodium Potassium 6.0 H Chloride Carbon Dioxide Anion Gap BUN Creatinine Estimated GFR POC Glucose 88 160 H Random Glucose Calcium Prot Corrected Calcium Phosphorus Magnesium Total Bilirubin AST ALT Alkaline Phosphatase Ammonia Total Protein Albumin 05/31/18 05/31/18 05/31/18 04:25 04:25 04:25 WBC 8.0 RBC 2.75 L Hgb 10.2 L Hct 30.1 L MCV 109.5 H MCH 37.2 H MCHC 34.0 RDW 19.0 H Plt Count 139 L MPV 9.2 Prelim Diff (Auto) Slide review pending Neut % (Auto) 80.3 H Lymph % (Auto) 11.9 Ness % (Auto) 6.4 Eos % (Auto) 0.9 Baso % (Auto) 0.5 Neut # (Auto) 6.4 Lymph # (Auto) 1.0 Ness # (Auto) 0.5 Eos # (Auto) 0.1 Baso # (Auto) 0.0 WBC Differential Manual diff final Seg Neuts % (Manual) 62 Band Neuts % (Manual) 19 H Lymphocytes % (Manual) 9 Monocytes % (Manual) 4 Eosinophils % (Manual) 1 Metamyelocytes % (Man) 3 H Myelocytes % (Man) 1 H Promyelocytes % (Man) 1 H Abs Neuts (Manual) 6.9 Nucleated RBCs/100 WBC 1 H Differential Comment . Platelet Estimate Low L Platelet Morphology Normal PT 11.8 H INR 1.2 Sodium 136 Potassium 4.9 D Chloride 96 L Carbon Dioxide 28.1 Anion Gap 12 BUN 50 H Creatinine 8.34 H Estimated GFR 7 L POC Glucose Random Glucose 108 H Calcium 6.5 L* D Prot Corrected Calcium 7.1 L* D Phosphorus 5.2 H D Magnesium 2.0 Total Bilirubin 4.8 H AST 1690 H ALT 766 H Alkaline Phosphatase 406 H Ammonia Total Protein 5.9 L Albumin 1.9 L 05/31/18 04:25 WBC RBC Hgb Hct MCV MCH MCHC RDW Plt Count MPV Prelim Diff (Auto) Neut % (Auto) Lymph % (Auto) Ness % (Auto) Eos % (Auto) Baso % (Auto) Neut # (Auto) Lymph # (Auto) Ness # (Auto) Eos # (Auto) Baso # (Auto) WBC Differential Seg Neuts % (Manual) Band Neuts % (Manual) Lymphocytes % (Manual) Monocytes % (Manual) Eosinophils % (Manual) Metamyelocytes % (Man) Myelocytes % (Man) Promyelocytes % (Man) Abs Neuts (Manual) Nucleated RBCs/100 WBC Differential Comment Platelet Estimate Platelet Morphology PT INR Sodium Potassium Chloride Carbon Dioxide Anion Gap BUN Creatinine Estimated GFR POC Glucose Random Glucose Calcium Prot Corrected Calcium Phosphorus Magnesium Total Bilirubin AST ALT Alkaline Phosphatase Ammonia 47 H Total Protein Albumin Assessment and Plan - Assessment (1) Diverticulitis Code(s): K57.92 - Diverticulitis of intestine, part unspecified, without perforation or abscess without bleeding Status: Acute (2) Acute renal failure Code(s): N17.9 - Acute kidney failure, unspecified Status: Acute (3) Alcohol abuse Code(s): F10.10 - Alcohol abuse, uncomplicated Status: Acute (4) Respiratory failure Code(s): J96.90 - Respiratory failure, unspecified, unspecified whether with hypoxia or hypercapnia Status: Acute - Plan 53-year-old male with acute hypoxic and hypercarbic respiratory failure and acute severe metabolic encephalopathy with associated multiorgan failure including renal failure and liver failure. Patient required intubation and has been in the ICU in acute shock requiring pressors. He has improved and stabilized for transfer to the hospitalist service. Acute hypoxic and hypercarbic respiratory failure: Status post intubation and extubation. - Doing well on. - Supplemental oxygen as needed. - Breathing treatments as needed. Acute renal failure secondary to rhabdomyolysis. Patient requiring hemodialysis -Ongoing hemodialysis per nephrology. Unclear if he will recover. -Vas-Cath in place. -Avoid nephrotoxins. Acute liver failure secondary to alcohol: - Follow LFTs. -Continue lactulose Statin induced rhabdomyolysis: -Ongoing hemodialysis as above. -Follow CPK. Alcohol dependence: - Off CIWA protocol. - No signs of withdrawal currently Acute diverticulitis/rectal pain: -Given persistent pain, will resume antibiotics with Cipro and Flagyl. Continue to monitor. -Pain medication as needed. Elevated troponin/atrial fibrillation: -Appreciate cardiology following. Elevation of cardiac enzymes likely secondary to renal failure. Not a candidate for anticoagulation due to bleeding. -Start metoprolol for better rate control. Discharge Planning: Okay to transfer to medical floor today. (2) Acute renal failure Qualifiers: Acute renal failure type: unspecified Qualified Code(s): N17.9 - Acute kidney failure, unspecified
[2018-05-31 13:27] LABS: CKMB Percent 0.1 % (0.0-4.0); Creatine Kinase MB 47.8 ng/mL (0.5-3.6)
[2018-05-31] MEDS ORDERED: Calcium Gluconate Inj 1 GM in Sodium Chlor 0.9% Inj 90 ML IV.SIG ONE (14:00)
--- NOTE | 2018-05-31 14:45 | P.PNCA ---
Subjective Interval history: asleep, easily arousable, denies chest pain Physical Exam Vital signs: Vital Signs 05/30/18 16:00 05/30/18 16:21 05/30/18 20:00 Temperature 97.9 F 98.3 F Pulse Rate 92 H 82 112 H Respiratory Rate 32 H 23 25 H Blood Pressure 102/56 L 124/60 Pulse Oximetry 05/30/18 21:17 05/31/18 00:00 05/31/18 04:00 Temperature 97.7 F 97.2 F L Pulse Rate 106 H 113 H 109 H Respiratory Rate 16 22 30 H Blood Pressure 116/65 101/55 L Pulse Oximetry 96 05/31/18 08:00 05/31/18 11:00 05/31/18 12:00 Temperature 97.9 F 98 F Pulse Rate 118 H 92 H Respiratory Rate 23 15 Blood Pressure 116/66 122/68 Pulse Oximetry 94 L Intake & Output 05/30/18 05/31/18 05/31/18 18:59 06:59 18:59 Intake Total 210 / 210 Output Total 1999 1500 / 1500 Balance 210 / 210 -1999 / -1999 -1500 / -1500 Weight 104.6 kg Intake: IV 210 / 210 Calcium Gluconate Inj 1 GM In 110 / 110 NS Inj 100 ML @ 110 mls/hr IV. SIG ONCE ONE Rx#:[id number] Cipro 200 MG/100 ML Inj 200 mg 100 / 100 In 100 ml @ 100 mls/hr IV.SIG Q24H [facility] Rx#:[id number] Output: Hemodialysis Amount 1999 1500 / 1500 Other: Date of Last Bowel Movement 05/29/18 05/29/18 05/29/18 - Urinary Catheter Management Indwelling Urethral Catheter Cath placed during this visit: yes, but has since been removed by the nurse Reason for continuing: Decision to DC catheter Insertion date: 05/28/18 Insertion time: 13:30 Removal date: 05/29/18 Removal time: 16:15 Assessment and Plan - Assessment (1) Thrombocytopenia Code(s): D69.6 - Thrombocytopenia, unspecified Status: Acute (2) Anemia Code(s): D64.9 - Anemia, unspecified Status: Acute (3) Leukemia Code(s): C95.90 - Leukemia, unspecified not having achieved remission Status: Acute (4) NSTEMI (non-ST elevated myocardial infarction) Code(s): I21.4 - Non-ST elevation (NSTEMI) myocardial infarction Status: Acute (5) Tobacco abuse Code(s): Z72.0 - Tobacco use Status: Acute (6) RADHA (acute kidney injury) Code(s): N17.9 - Acute kidney failure, unspecified Status: Acute (7) ETOH abuse Code(s): F10.10 - Alcohol abuse, uncomplicated Status: Acute (8) Rectal pain Code(s): K62.89 - Other specified diseases of anus and rectum Status: Deleted (9) Metabolic acidosis Code(s): E87.2 - Acidosis Status: Acute (10) Diverticulitis Code(s): K57.92 - Diverticulitis of intestine, part unspecified, without perforation or abscess without bleeding Status: Acute (11) Acute renal failure Code(s): N17.9 - Acute kidney failure, unspecified Status: Acute (12) Transaminitis Code(s): R74.0 - Nonspecific elevation of levels of transaminase and lactic acid dehydrogenase [LDH] Status: Acute (13) Alcohol abuse Code(s): F10.10 - Alcohol abuse, uncomplicated Status: Acute - Plan 1.) NSTEMI - suspect trop elevation due to arf which appears to be due to rhabdomyolysis, he is assymptomatic 2.) Afib - 2d echo ef=50%, [id number] score=1, male gender, ac held due to unstable platelet count, hgb and liver functio, continue to f/u trends in lfts, hgb, plt ct 3.) Respiratory failure - ef=50% on echo, assymptomatic 05/27/18, possibly due to volume overload from arf, f/u bnp, retrend trop and cpk; d/w Dr George (11) Acute renal failure Qualifiers: Acute renal failure type: unspecified Qualified Code(s): N17.9 - Acute kidney failure, unspecified
[2018-05-31] MEDS: Ciprofloxacin 500 MG Tablet PO SCH (20:35)
[2018-05-31] MEDS ORDERED: HYDROmorphone PF Inj 1 MG/ML Ampul IV.PUSH ONE (21:15)
[2018-05-31] MEDS ORDERED: HYDROmorphone PF Inj 2 MG/ML Vial IV.PUSH ONE (21:45)
[2018-06-01] MEDS: Oral Hygiene Kit OROPHARYNG SCH ×4 (01:24→17:24)
[2018-06-01] MEDS: Zolpidem Tartrate 5 MG Tablet PO PRN (01:51)
[2018-06-01] MEDS: Chlorhexidine Gluconate 2% 1 Pack (2 Cloths) TOPICAL SCH (04:43)
[2018-06-01] MEDS: Heparin - SQ 10,000 UNITS/ML Vial SQ SCH ×3 (06:22→22:25)
[2018-06-01 07:18] LABS: Baso # (Auto) 0.2 th/mm3 (0.0-0.2); Baso % (Auto) 1.4 % (0.0-2.0); Eos # (Auto) 0.1 th/mm3 (0.0-0.4); Eos % (Auto) 0.9 % (0.0-4.0); Hematocrit 33.7 % (39.0-51.0); Hemoglobin 11.4 gm/dL (13.0-17.0); Lymph # (Auto) 1.1 th/mm3 (1.0-4.8); Mean Corpuscular HGB Conc 33.8 % (32.0-36.0); Mean Corpuscular Hemoglobin 36.9 pg (27.0-34.0); Mean Corpuscular Volume 109.1 fL (80.0-100.0); Mean Platelet Volume 9.3 fL (7.0-11.0); Mono # (Auto) 0.7 th/mm3 (0.0-0.9); Neut % (Auto) 81.7 % (16.0-70.0); Platelet Count 179 th/mm3 (150-450); Red Blood Count 3.09 mil/mm3 (4.50-5.90)
[2018-06-01 07:30] LABS: INR 1.1 Ratio; Prothrombin Time 11.5 sec (9.8-11.6)
[2018-06-01 08:22] LABS: Eosinophils 1 % (0-4); Lymphocytes 7 % (9-44); Metamyelocytes 4 % (0-1); Monocytes 5 % (0-8); Myelocytes 7 % (0-0); Platelet Estimate Normal (Normal); Platelet Morphology Normal (Normal); Promyelocyte 1 % (0-0); Tallied Nucleated RBC 1 (0-0)
[2018-06-01 08:23] LABS: Alanine Aminotransferase 841 U/L (12-78); Albumin 2.1 g/dL (3.4-5.0); Alkaline Phosphatase 467 U/L (45-117); Anion Gap 9 meq/L (5-15); Aspartate Aminotransferase 1357 U/L (15-37); Blood Urea Nitrogen 38 mg/dL (7-18); Calcium 8.2 mg/dL (8.5-10.1); Carbon Dioxide 29.8 meq/L (21.0-32.0); Chloride 96 meq/L (98-107); Glomerular Filtration Rate 8 mL/min (>89); Glucose,Random 95 mg/dL (74-106); Magnesium 1.9 mg/dL (1.5-2.5); Pappenheimer Bodies Present; Phosphorus 4.1 mg/dL (2.5-4.9); Potassium 4.8 meq/L (3.5-5.1); Sodium 135 meq/L (136-145); Total Protein 6.8 g/dL (6.4-8.2)
[2018-06-01] MEDS: Ciprofloxacin 500 MG Tablet PO SCH (08:43)
[2018-06-01] MEDS: Senna/Docusate Sodium 8.6/50 MG Tablet PO SCH ×2 (08:43→20:17)
[2018-06-01] MEDS: Chlorhexidine 0.12% Oral Kit 15 ML UDC OROPHARYNG SCH ×2 (08:44→20:18)
[2018-06-01] MEDS: Hydrocortisone Acetate 25 MG Supp RECTAL SCH ×3 (08:44→17:24)
[2018-06-01] MEDS: Polyethylene Glycol 3350 17 GM Packet PO SCH ×2 (08:44→20:16)
[2018-06-01] MEDS: Calcium Acetate 667 MG Capsule PO SCH ×3 (08:44→17:23)
--- NOTE | 2018-06-01 11:05 | P.PNONC ---
Subjective Interval history: Afebrile. Patient resting in bed, in no acute distress. He reports he has a burning pain at his rectum, from his hemorrhoids. This pain is not new to him, it "flares up" he is requesting an increase in his pain medications. Noted 2 bowel movements today. He states the suppositories he received do help, however Preparation H does not. Objective Vital Signs/Intake & Output: Vital Signs 05/31/18 11:00 05/31/18 12:00 05/31/18 16:00 Temperature 98 F 98.1 F Pulse Rate 92 H 102 H Respiratory Rate 15 24 Blood Pressure 122/68 90/50 L Pulse Oximetry 94 L 05/31/18 18:50 05/31/18 20:00 06/01/18 00:00 Temperature 98.2 F 98.3 F 99.2 F Pulse Rate 106 H 107 H 116 H Respiratory Rate 18 20 20 Blood Pressure 101/62 102/57 L 111/63 Pulse Oximetry 95 96 96 06/01/18 04:00 06/01/18 08:00 06/01/18 10:31 Temperature 97.9 F 98.3 F Pulse Rate 95 H 67 Respiratory Rate 20 18 Blood Pressure 115/67 99/67 L Pulse Oximetry 95 92 L 94 L Intake & Output 05/31/18 06/01/18 06/01/18 18:59 06:59 18:59 Intake Total 420 / 420 1340 / 1340 Output Total 1500 / 1500 2 / 2 Balance -1080 / -1080 1338 / 1338 Intake: Oral 420 / 420 1340 / 1340 Output: Urine 0 / 0 2 / 2 Hemodialysis Amount 1500 / 1500 Other: Date of Last Bowel Movement 05/31/18 05/31/18 05/31/18 # Bowel Movements 1 1 Result Diagrams: 06/01/18 06:51 06/01/18 06:51 Laboratory Results: Laboratory Results - last 24 hr 05/31/18 05/31/18 05/31/18 04:25 12:24 21:33 WBC RBC Hgb Hct MCV MCH MCHC RDW Plt Count MPV Prelim Diff (Auto) Neut % (Auto) Lymph % (Auto) [place] % (Auto) Eos % (Auto) Baso % (Auto) Neut # (Auto) Lymph # (Auto) [place] # (Auto) Eos # (Auto) Baso # (Auto) WBC Differential Seg Neuts % (Manual) Band Neuts % (Manual) Lymphocytes % (Manual) Monocytes % (Manual) Eosinophils % (Manual) Basophils % (Manual) Metamyelocytes % (Man) Myelocytes % (Man) Promyelocytes % (Man) Abs Neuts (Manual) Nucleated RBCs/100 WBC Differential Comment Platelet Estimate Platelet Morphology Pappenheimer Bodies PT INR Sodium Potassium Chloride Carbon Dioxide Anion Gap BUN Creatinine Estimated GFR POC Glucose 123 H 141 H Random Glucose Calcium Phosphorus Magnesium Total Bilirubin Direct Bilirubin Indirect Bilirubin AST ALT Alkaline Phosphatase Ammonia Total Creatine Kinase 75880 H CK-MB (CK-2) 47.8 H CK-MB (CK-2) % 0.1 Total Protein Albumin 06/01/18 06/01/18 06/01/18 06:51 06:51 06:51 WBC 11.0 RBC 3.09 L Hgb 11.4 L Hct 33.7 L MCV 109.1 H MCH 36.9 H MCHC 33.8 RDW 19.0 H Plt Count 179 MPV 9.3 Prelim Diff (Auto) Slide review pending Neut % (Auto) 81.7 H Lymph % (Auto) 10.0 [place] % (Auto) 6.0 Eos % (Auto) 0.9 Baso % (Auto) 1.4 Neut # (Auto) 9.0 H Lymph # (Auto) 1.1 [place] # (Auto) 0.7 Eos # (Auto) 0.1 Baso # (Auto) 0.2 WBC Differential Manual diff final Seg Neuts % (Manual) 62 Band Neuts % (Manual) 12 H Lymphocytes % (Manual) 7 L Monocytes % (Manual) 5 Eosinophils % (Manual) 1 Basophils % (Manual) 1 Metamyelocytes % (Man) 4 H Myelocytes % (Man) 7 H Promyelocytes % (Man) 1 H Abs Neuts (Manual) 9.5 H Nucleated RBCs/100 WBC 1 H Differential Comment . Platelet Estimate Normal Platelet Morphology Normal Pappenheimer Bodies Present H PT 11.5 INR 1.1 Sodium 135 L Potassium 4.8 Chloride 96 L Carbon Dioxide 29.8 Anion Gap 9 BUN 38 H Creatinine 7.02 H Estimated GFR 8 L POC Glucose Random Glucose 95 Calcium 8.2 L D Phosphorus 4.1 D Magnesium 1.9 Total Bilirubin 3.8 H Direct Bilirubin 3.1 H Indirect Bilirubin 0.7 AST 1357 H ALT 841 H Alkaline Phosphatase 467 H Ammonia Total Creatine Kinase CK-MB (CK-2) CK-MB (CK-2) % Total Protein 6.8 D Albumin 2.1 L 06/01/18 06/01/18 06:51 07:38 WBC RBC Hgb Hct MCV MCH MCHC RDW Plt Count MPV Prelim Diff (Auto) Neut % (Auto) Lymph % (Auto) [place] % (Auto) Eos % (Auto) Baso % (Auto) Neut # (Auto) Lymph # (Auto) [place] # (Auto) Eos # (Auto) Baso # (Auto) WBC Differential Seg Neuts % (Manual) Band Neuts % (Manual) Lymphocytes % (Manual) Monocytes % (Manual) Eosinophils % (Manual) Basophils % (Manual) Metamyelocytes % (Man) Myelocytes % (Man) Promyelocytes % (Man) Abs Neuts (Manual) Nucleated RBCs/100 WBC Differential Comment Platelet Estimate Platelet Morphology Pappenheimer Bodies PT INR Sodium Potassium Chloride Carbon Dioxide Anion Gap BUN Creatinine Estimated GFR POC Glucose 111 H Random Glucose Calcium Phosphorus Magnesium Total Bilirubin Direct Bilirubin Indirect Bilirubin AST ALT Alkaline Phosphatase Ammonia 37 H Total Creatine Kinase CK-MB (CK-2) CK-MB (CK-2) % Total Protein Albumin Medications: Active Medications Generic Name Dose Route Start Last Admin Trade Name Freq PRN Reason Stop Dose Admin Aspirin 81 mg 06/01/18 09:00 06/01/18 08:44 Ecotrin PO 81 mg DAILY WEI Administration Calcium Acetate 667 mg 05/27/18 13:00 06/01/18 08:44 Phoslo PO 667 mg TID WEI Administration Chlorhexidine Gluconate 15 ml 05/28/18 08:00 06/01/18 08:44 Peridex 0.12% Oral Kit OROPHARYNG Not Given BID@0800,1999 [facility] Chlorhexidine Gluconate 3 pack 05/29/18 04:00 06/01/18 04:43 Chlorhexidine 2% Cloth TOPICAL 06/03/18 03:59 Not Given DAILY@0400 [facility] Ciprofloxacin HCl 500 mg 05/31/18 21:00 06/01/18 08:43 Cipro PO 500 mg Q12HR WEI Administration Gentamicin Sulfate 20 mg 05/27/18 09:32 05/31/18 12:27 Gentamicin Inj OTHER 20 mg WITH DIALYSIS PRN Administration Dwell Gentamycin Lock Heparin Sodium (Porcine) 5,000 units 05/26/18 18:00 06/01/18 06:22 Heparin Inj SQ 5,000 units Q8HR WEI Administration Heparin Sodium (Porcine) 1,000 units 05/27/18 09:32 05/31/18 12:27 Heparin Inj OTHER 1,000 units WITH DIALYSIS PRN Administration Dwell Heparin to Fill Catheter Hydrocortisone Acetate 25 mg 05/26/18 18:00 06/01/18 08:44 Hemorrhoidal Hc Supp RECTAL 25 mg TID WEI Administration Albumin Human 100 mls @ 60 mls/hr 05/27/18 09:32 05/27/18 18:14 Flexbumin 25% Inj IV.SIG Infused WITH DIALYSIS PRN Infusion hypotension / volume replace Vasopressin 40 unit/ Dextrose 100 mls @ 6 mls/hr 05/29/18 14:00 05/30/18 12: 35 IV.CONT 0 units/min CONT WEI 0 mls/hr Infusion Protocol 0.04 UNITS/MIN Insulin Human Regular 1 units 05/28/18 12:00 06/01/18 06:38 Novolin R Inj SQ Not Given Q6HR [facility] Protocol Lactulose 30 ml 05/28/18 09:00 06/01/18 08:44 Lactulose Liq PO 30 ml BID WEI Administration Metronidazole 250 mg 05/31/18 15:00 06/01/18 06:39 Flagyl PO 250 mg Q8HR WEI Administration Ondansetron HCl 4 mg 05/26/18 12:43 05/30/18 20:46 Zofran Inj IV.PUSH 4 mg Q6H PRN Administration NAUSEA OR VOMITING Oxycodone/Acetaminophen 1 tab 05/31/18 17:54 06/01/18 08:44 Percocet 5/325 Mg PO 1 tab Q4H PRN Administration PAIN 1-10 Pantoprazole Sodium 40 mg 05/26/18 14:00 06/01/18 08:43 Protonix PO 40 mg DAILY WEI Administration Polyethylene Glycol 17 gm 05/28/18 09:00 06/01/18 08:44 Miralax PO 17 gm BID WEI Administration Senna/Docusate Sodium 1 tab 05/28/18 09:00 06/01/18 08:43 Najma-Colace PO 1 tab BID WEI Administration Thiamine HCl 100 mg 05/26/18 14:00 06/01/18 08:44 Vitamin B1 PO 100 mg DAILY WEI Administration Zolpidem Tartrate 5 mg 05/26/18 12:43 06/01/18 01:51 Ambien PO 5 mg HS PRN Administration INSOMNIA Objective Remarks: GENERAL: Chronically ill-appearing male patient, lying in bed in no acute distress. SKIN: Warm and dry. Ecchymosis to lower abdomen. HEAD: Normocephalic. EYES: No scleral icterus. No injection or drainage. NECK: Supple, trachea midline. CARDIOVASCULAR: Irregularly irregular rate. RESPIRATORY: Breath sounds equal bilaterally. No accessory muscle use. GASTROINTESTINAL: Abdomen soft, non-tender, nondistended. EXTREMITIES: No cyanosis, or edema. MUSCULOSKELETAL: Adequate muscle tone. NEUROLOGICAL: No obvious focal deficit. Awake, alert, and oriented x3. PSYCHIATRIC: Appropriate mood and affect; insight and judgment normal. 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 This admission the patient was admitted for nausea and vomiting, found to be hypoxic with changes in mental status, he was intubated. Patient has since been extubated. He is receiving hemodialysis. 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 Plan: 1. History of hairy cell leukemia. There is no evidence of recurrence at this time. Flow cytometry revealed abnormalities in cellular composition with the myeloid predominance and left shifted myeloid maturation. There is no diagnostic flow cytometric evidence for an abnormal or neoplastic leukocyte population in the analyzed sample. 2. Continues on hemodialysis. 3. Thrombocytopenia, improved. 4. Continue supportive care. - Attending Statement Patient seen in his room along with nurse practitioner. I informed Mr. Richey had a low blood flow cytometry is negative for any evidence of recurrence of HCL. No indication for further evaluation. Rest of the management per primary team. Agree with nurse practitioner's evaluation and management of hematologic condition. (2) Acute renal failure Qualifiers: Acute renal failure type: unspecified Qualified Code(s): N17.9 - Acute kidney failure, unspecified
--- NOTE | 2018-06-01 11:21 | P.PNNP ---
Subjective Interval history: patient was seen and examined. No signs of renal recovery. Physical Exam Vital signs: Vital Signs 05/31/18 12:00 05/31/18 16:00 05/31/18 18:50 Temperature 98 F 98.1 F 98.2 F Pulse Rate 92 H 102 H 106 H Respiratory Rate 15 24 18 Blood Pressure 122/68 90/50 L 101/62 Pulse Oximetry 95 05/31/18 20:00 06/01/18 00:00 06/01/18 04:00 Temperature 98.3 F 99.2 F 97.9 F Pulse Rate 107 H 116 H 95 H Respiratory Rate 20 20 20 Blood Pressure 102/57 L 111/63 115/67 Pulse Oximetry 96 96 95 06/01/18 08:00 06/01/18 10:31 Temperature 98.3 F Pulse Rate 67 Respiratory Rate 18 Blood Pressure 99/67 L Pulse Oximetry 92 L 94 L Intake & Output 05/31/18 06/01/18 06/01/18 18:59 06:59 18:59 Intake Total 420 / 420 1340 / 1340 Output Total 1500 / 1500 2 / 2 Balance -1080 / -1080 1338 / 1338 Intake: Oral 420 / 420 1340 / 1340 Output: Urine 0 / 0 2 / 2 Hemodialysis Amount 1500 / 1500 Other: Date of Last Bowel Movement 05/31/18 05/31/18 05/31/18 # Bowel Movements 1 1 Narrative: GENERAL: Obese male, in no apparent distress. CARDIOVASCULAR: Normal rate and regular rhythm without murmurs, gallops, or rubs. RESPIRATORY: Good respiratory efforts. Breath sounds equal and clear to auscultation bilaterally. GASTROINTESTINAL: Abdomen soft, non-tender, non-distended. Normal active bowel sounds MUSCULOSKELETAL: Extremities without cyanosis, or edema. NEURO: able to move all extremities. - Urinary Catheter Management Indwelling Urethral Catheter Cath placed during this visit: yes, but has since been removed by the nurse Reason for continuing: Decision to DC catheter Insertion date: 05/28/18 Insertion time: 13:30 Removal date: 05/29/18 Removal time: 16:15 Assessment and Plan - Assessment (1) RADHA (acute kidney injury) Code(s): N17.9 - Acute kidney failure, unspecified Status: Acute Plan: He has underlying CKD, baseline creatinine was 1.5-1.6 earlier this year. RADHA is due to rhabdomyolysis. Imaging negative for obstruction. Dialysis initiated on 05/27. Continue to monitor urine output. He has significant proteinuria. I will repeat UA and urine protein quantification. Repeat CPK, as it had increased yesterday. I will get PermCath placed as well. Follow CPK. Hold home lisinopril, avoid other nephrotoxins. Repeat labs daily. Dialysis tomorrow. Monitor for renal recovery, so far no signs. (2) Rhabdomyolysis due to statin therapy Code(s): M62.82 - Rhabdomyolysis Status: Acute Plan: Did not improve with hydration, now on HD. (3) Metabolic acidosis Code(s): E87.2 - Acidosis Status: Acute Plan: Due to renal failure Improved. (4) ETOH abuse Code(s): F10.10 - Alcohol abuse, uncomplicated Status: Acute Plan: Cessation has been advised. (5) Respiratory failure Code(s): J96.90 - Respiratory failure, unspecified, unspecified whether with hypoxia or hypercapnia Status: Acute Plan: improved.
--- NOTE | 2018-06-01 13:37 | P.PNCA ---
Subjective Interval history: denies chest pain in nad Physical Exam Vital signs: Vital Signs 05/31/18 16:00 05/31/18 18:50 05/31/18 20:00 Temperature 98.1 F 98.2 F 98.3 F Pulse Rate 102 H 106 H 107 H Respiratory Rate 24 18 20 Blood Pressure 90/50 L 101/62 102/57 L Pulse Oximetry 95 96 06/01/18 00:00 06/01/18 04:00 06/01/18 08:00 Temperature 99.2 F 97.9 F 98.3 F Pulse Rate 116 H 95 H 67 Respiratory Rate 20 20 18 Blood Pressure 111/63 115/67 99/67 L Pulse Oximetry 96 95 92 L 06/01/18 10:31 06/01/18 12:00 Temperature 97.5 F L Pulse Rate 68 Respiratory Rate 18 Blood Pressure 108/56 L Pulse Oximetry 94 L 94 L Intake & Output 05/31/18 06/01/18 06/01/18 18:59 06:59 18:59 Intake Total 420 / 420 1340 / 1340 Output Total 1500 / 1500 2 / 2 Balance -1080 / -1080 1338 / 1338 Intake: Oral 420 / 420 1340 / 1340 Output: Urine 0 / 0 2 / 2 Hemodialysis Amount 1500 / 1500 Other: Date of Last Bowel Movement 05/31/18 05/31/18 05/31/18 # Bowel Movements 1 1 - Urinary Catheter Management Indwelling Urethral Catheter Cath placed during this visit: yes, but has since been removed by the nurse Reason for continuing: Decision to DC catheter Insertion date: 05/28/18 Insertion time: 13:30 Removal date: 05/29/18 Removal time: 16:15 Assessment and Plan - Assessment (1) Thrombocytopenia Code(s): D69.6 - Thrombocytopenia, unspecified Status: Acute (2) Anemia Code(s): D64.9 - Anemia, unspecified Status: Acute (3) Leukemia Code(s): C95.90 - Leukemia, unspecified not having achieved remission Status: Acute (4) NSTEMI (non-ST elevated myocardial infarction) Code(s): I21.4 - Non-ST elevation (NSTEMI) myocardial infarction Status: Acute (5) Tobacco abuse Code(s): Z72.0 - Tobacco use Status: Acute (6) RADHA (acute kidney injury) Code(s): N17.9 - Acute kidney failure, unspecified Status: Acute (7) ETOH abuse Code(s): F10.10 - Alcohol abuse, uncomplicated Status: Acute (8) Rectal pain Code(s): K62.89 - Other specified diseases of anus and rectum Status: Deleted (9) Metabolic acidosis Code(s): E87.2 - Acidosis Status: Acute (10) Diverticulitis Code(s): K57.92 - Diverticulitis of intestine, part unspecified, without perforation or abscess without bleeding Status: Acute (11) Acute renal failure Code(s): N17.9 - Acute kidney failure, unspecified Status: Acute (12) Transaminitis Code(s): R74.0 - Nonspecific elevation of levels of transaminase and lactic acid dehydrogenase [LDH] Status: Acute (13) Alcohol abuse Code(s): F10.10 - Alcohol abuse, uncomplicated Status: Acute - Plan 1.) NSTEMI - suspect trop elevation due to arf which appears to be due to rhabdomyolysis, he is assymptomatic 2.) Afib - 2d echo ef=50%, [id number] score=1, male gender, ac held due to unstable platelet count, hgb and liver functio, continue to f/u trends in lfts, hgb, plt ct; start aspirin 81 mg qd 06/01/18 3.) Respiratory failure - ef=50% on echo, assymptomatic 05/27/18, possibly due to volume overload from arf, f/u bnp, retrend trop and cpk; d/w Dr George (11) Acute renal failure Qualifiers: Acute renal failure type: unspecified Qualified Code(s): N17.9 - Acute kidney failure, unspecified
--- NOTE | 2018-06-01 14:10 | P.PNIM ---
Subjective Interval history: Patient reports he is feeling okay except for uncontrolled rectal pain. He states he is eating better. He states he urinated some brownish looking urine. Physical Exam Vital signs: Vital Signs 05/31/18 16:00 05/31/18 18:50 05/31/18 20:00 Temperature 98.1 F 98.2 F 98.3 F Pulse Rate 102 H 106 H 107 H Respiratory Rate 24 18 20 Blood Pressure 90/50 L 101/62 102/57 L Pulse Oximetry 95 96 06/01/18 00:00 06/01/18 04:00 06/01/18 08:00 Temperature 99.2 F 97.9 F 98.3 F Pulse Rate 116 H 95 H 67 Respiratory Rate 20 20 18 Blood Pressure 111/63 115/67 99/67 L Pulse Oximetry 96 95 92 L 06/01/18 10:31 06/01/18 12:00 Temperature 97.5 F L Pulse Rate 68 Respiratory Rate 18 Blood Pressure 108/56 L Pulse Oximetry 94 L 94 L Intake & Output 05/31/18 06/01/18 06/01/18 18:59 06:59 18:59 Intake Total 420 / 420 1340 / 1340 Output Total 1500 / 1500 2 / 2 Balance -1080 / -1080 1338 / 1338 Intake: Oral 420 / 420 1340 / 1340 Output: Urine 0 / 0 2 / 2 Hemodialysis Amount 1500 / 1500 Other: Date of Last Bowel Movement 05/31/18 05/31/18 05/31/18 # Bowel Movements 1 1 Narrative: GENERAL: Obese male in no apparent distress. CARDIOVASCULAR: Normal rate and regular rhythm without murmurs, gallops, or rubs. RESPIRATORY: Good respiratory efforts. Breath sounds equal and clear to auscultation bilaterally. GASTROINTESTINAL: Abdomen soft, non-tender, non-distended. Normal active bowel sounds MUSCULOSKELETAL: Extremities without cyanosis, or edema. NEURO: Alert & Oriented x4 to person, place, time, situation. Moves all ext x4 PSYCH: Appropriate mood and affect. - Urinary Catheter Management Indwelling Urethral Catheter Cath placed during this visit: yes, but has since been removed by the nurse Reason for continuing: Decision to DC catheter Insertion date: 05/28/18 Insertion time: 13:30 Removal date: 05/29/18 Removal time: 16:15 Results - Labs CBC & Chem 7: 06/01/18 06:51 06/01/18 06:51 Laboratory Results - last 24 hr 05/31/18 06/01/18 06/01/18 21:33 06:51 06:51 WBC 11.0 RBC 3.09 L Hgb 11.4 L Hct 33.7 L MCV 109.1 H MCH 36.9 H MCHC 33.8 RDW 19.0 H Plt Count 179 MPV 9.3 Prelim Diff (Auto) Slide review pending Neut % (Auto) 81.7 H Lymph % (Auto) 10.0 [place] % (Auto) 6.0 Eos % (Auto) 0.9 Baso % (Auto) 1.4 Neut # (Auto) 9.0 H Lymph # (Auto) 1.1 [place] # (Auto) 0.7 Eos # (Auto) 0.1 Baso # (Auto) 0.2 WBC Differential Manual diff final Seg Neuts % (Manual) 62 Band Neuts % (Manual) 12 H Lymphocytes % (Manual) 7 L Monocytes % (Manual) 5 Eosinophils % (Manual) 1 Basophils % (Manual) 1 Metamyelocytes % (Man) 4 H Myelocytes % (Man) 7 H Promyelocytes % (Man) 1 H Abs Neuts (Manual) 9.5 H Nucleated RBCs/100 WBC 1 H Differential Comment . Platelet Estimate Normal Platelet Morphology Normal Pappenheimer Bodies Present H PT 11.5 INR 1.1 Sodium Potassium Chloride Carbon Dioxide Anion Gap BUN Creatinine Estimated GFR POC Glucose 141 H Random Glucose Calcium Phosphorus Magnesium Total Bilirubin Direct Bilirubin Indirect Bilirubin AST ALT Alkaline Phosphatase Ammonia Total Protein Albumin 06/01/18 06/01/18 06/01/18 06:51 06:51 07:38 WBC RBC Hgb Hct MCV MCH MCHC RDW Plt Count MPV Prelim Diff (Auto) Neut % (Auto) Lymph % (Auto) [place] % (Auto) Eos % (Auto) Baso % (Auto) Neut # (Auto) Lymph # (Auto) [place] # (Auto) Eos # (Auto) Baso # (Auto) WBC Differential Seg Neuts % (Manual) Band Neuts % (Manual) Lymphocytes % (Manual) Monocytes % (Manual) Eosinophils % (Manual) Basophils % (Manual) Metamyelocytes % (Man) Myelocytes % (Man) Promyelocytes % (Man) Abs Neuts (Manual) Nucleated RBCs/100 WBC Differential Comment Platelet Estimate Platelet Morphology Pappenheimer Bodies PT INR Sodium 135 L Potassium 4.8 Chloride 96 L Carbon Dioxide 29.8 Anion Gap 9 BUN 38 H Creatinine 7.02 H Estimated GFR 8 L POC Glucose 111 H Random Glucose 95 Calcium 8.2 L D Phosphorus 4.1 D Magnesium 1.9 Total Bilirubin 3.8 H Direct Bilirubin 3.1 H Indirect Bilirubin 0.7 AST 1357 H ALT 841 H Alkaline Phosphatase 467 H Ammonia 37 H Total Protein 6.8 D Albumin 2.1 L 06/01/18 11:12 WBC RBC Hgb Hct MCV MCH MCHC RDW Plt Count MPV Prelim Diff (Auto) Neut % (Auto) Lymph % (Auto) [place] % (Auto) Eos % (Auto) Baso % (Auto) Neut # (Auto) Lymph # (Auto) [place] # (Auto) Eos # (Auto) Baso # (Auto) WBC Differential Seg Neuts % (Manual) Band Neuts % (Manual) Lymphocytes % (Manual) Monocytes % (Manual) Eosinophils % (Manual) Basophils % (Manual) Metamyelocytes % (Man) Myelocytes % (Man) Promyelocytes % (Man) Abs Neuts (Manual) Nucleated RBCs/100 WBC Differential Comment Platelet Estimate Platelet Morphology Pappenheimer Bodies PT INR Sodium Potassium Chloride Carbon Dioxide Anion Gap BUN Creatinine Estimated GFR POC Glucose 140 H Random Glucose Calcium Phosphorus Magnesium Total Bilirubin Direct Bilirubin Indirect Bilirubin AST ALT Alkaline Phosphatase Ammonia Total Protein Albumin - Procedures TO HAVE HD CATHETER PLACED TODAY Assessment and Plan - Assessment (1) Diverticulitis Code(s): K57.92 - Diverticulitis of intestine, part unspecified, without perforation or abscess without bleeding Status: Acute (2) Acute renal failure Code(s): N17.9 - Acute kidney failure, unspecified Status: Acute (3) Alcohol abuse Code(s): F10.10 - Alcohol abuse, uncomplicated Status: Acute (4) Respiratory failure Code(s): J96.90 - Respiratory failure, unspecified, unspecified whether with hypoxia or hypercapnia Status: Acute - Plan 53-year-old male with acute hypoxic and hypercarbic respiratory failure and acute severe metabolic encephalopathy with associated multiorgan failure including renal failure and liver failure. Patient required intubation and has been in the ICU in acute shock requiring pressors. He has improved and stabilized therefore transferred to the hospitalist service Acute hypoxic and hypercarbic respiratory failure: Status post intubation and extubation. - Doing well on. - Supplemental oxygen as needed. - Breathing treatments as needed. Acute renal failure secondary to rhabdomyolysis. Patient requiring hemodialysis -Ongoing hemodialysis per nephrology. Unclear if he will recover. -Vas-Cath in place. Permacath ordered per nephrology. -Avoid nephrotoxins. Acute liver failure secondary to alcohol: - Follow LFTs. -Continue lactulose Statin induced rhabdomyolysis: -Ongoing hemodialysis as above. -Follow CK levels. Alcohol dependence: - Off CIWA protocol. - No signs of withdrawal currently Acute diverticulitis/rectal pain: -Given persistent pain, will resume antibiotics with Cipro and Flagyl. Continue to monitor. -Pain medication as needed. Increase Percocet to 10/325 Elevated troponin/atrial fibrillation: -Appreciate cardiology following. Elevation of cardiac enzymes likely secondary to renal failure. Not a candidate for anticoagulation due to bleeding. -Continue metoprolol for better rate control. Discharge Planning: Continue hemodialysis. Unclear if renal functions will recover. (2) Acute renal failure Qualifiers: Acute renal failure type: unspecified Qualified Code(s): N17.9 - Acute kidney failure, unspecified
[2018-06-01] MEDS: Vancomycin Inj 1,000 MG in Sodium Chlor 0.9% Inj 250 ML IV.SIG SCH (14:57)
[2018-06-01] MEDS: oxyCODONE/Acetaminophen 10/325 Tablet PO PRN ×2 (16:39→20:27)
[2018-06-01 17:47] LABS: CKMB Percent 0.1 % (0.0-4.0); Creatine Kinase MB 36.8 ng/mL (0.5-3.6)
[2018-06-02] MEDS: oxyCODONE/Acetaminophen 10/325 Tablet PO PRN ×3 (00:35→19:53)
[2018-06-02] MEDS: Oral Hygiene Kit OROPHARYNG SCH ×4 (01:21→18:05)
[2018-06-02] MEDS: Chlorhexidine Gluconate 2% 1 Pack (2 Cloths) TOPICAL SCH (03:30)
[2018-06-02] MEDS: Heparin - SQ 10,000 UNITS/ML Vial SQ SCH ×3 (06:10→22:54)
[2018-06-02] MEDS: Vancomycin Inj 1,000 MG in Sodium Chlor 0.9% Inj 250 ML IV.SIG SCH (07:55)
[2018-06-02 08:20] LABS: Baso # (Auto) 0.2 th/mm3 (0.0-0.2); Baso % (Auto) 1.4 % (0.0-2.0); Eos # (Auto) 0.1 th/mm3 (0.0-0.4); Eos % (Auto) 0.9 % (0.0-4.0); Hematocrit 32.7 % (39.0-51.0); Hemoglobin 10.9 gm/dL (13.0-17.0); Lymph % (Auto) 8.2 % (9.0-44.0); Mean Corpuscular HGB Conc 33.3 % (32.0-36.0); Mean Corpuscular Hemoglobin 36.8 pg (27.0-34.0); Mean Corpuscular Volume 110.6 fL (80.0-100.0); Mono # (Auto) 0.7 th/mm3 (0.0-0.9); Mono % (Auto) 5.9 % (0.0-8.0); Neut # (Auto) 10.1 th/mm3 (1.8-7.7); Neut % (Auto) 83.6 % (16.0-70.0); Platelet Count 172 th/mm3 (150-450); Red Blood Count 2.96 mil/mm3 (4.50-5.90); Red Cell Distribution Width 19.3 % (11.6-17.2); White Blood Count 12.1 th/mm3 (4.0-11.0)
[2018-06-02 08:21] LABS: INR 1.1 Ratio; Prothrombin Time 11.3 sec (9.8-11.6)
[2018-06-02] MEDS ORDERED: fentaNYL Citrate Inj 250 MCG/5 ML Ampul ONE (08:22)
[2018-06-02] MEDS ORDERED: *Heparin 10,000 UNITS/10 ML Vial Periprocedural ONLY ONE (08:25)
[2018-06-02] MEDS ORDERED: Lidocaine 1%/Epinephrine 1:100,000 Inj 30 ML Vial ONE (08:25)
[2018-06-02 08:46] LABS: Alanine Aminotransferase 695 U/L (12-78); Anion Gap 13 meq/L (5-15); Aspartate Aminotransferase 799 U/L (15-37); Blood Urea Nitrogen 57 mg/dL (7-18); Calcium 8.2 mg/dL (8.5-10.1); Carbon Dioxide 27.4 meq/L (21.0-32.0); Chloride 94 meq/L (98-107); Glomerular Filtration Rate 6 mL/min (>89); Glucose,Random 111 mg/dL (74-106); Magnesium 1.9 mg/dL (1.5-2.5); Phosphorus 4.2 mg/dL (2.5-4.9); Potassium 5.3 meq/L (3.5-5.1); Sodium 134 meq/L (136-145)
[2018-06-02] MEDS ORDERED: Ciprofloxacin 500 MG Tablet PO SCH (09:00)
--- NOTE | 2018-06-02 09:27 | P.RAD ---
Post Procedure Progress Note - Pre Procedure Diagnosis (1) Acute renal failure - Post Procedure Diagnosis (1) Acute renal failure - Procedure Information Procedure Date: 06/02/18 Supervising Radiologist: Haja Yee MD Estimated blood loss (mL): 0 Anesthesia: Local, Conscious Sedation - Plan of Activity Patient to Unit: ROPU Patient Condition: Fair Additional Comments: Right IJ permcath placed without difficulty. Catheter in good position OK for use See PACS Report for procedural detail/treatment.
[2018-06-02 09:28] LABS: Eosinophils 4 % (0-4); Lymphocytes 1 % (9-44); Metamyelocytes 7 % (0-1); Monocytes 3 % (0-8); Myelocytes 3 % (0-0); Plasma Cells 1 % (0-0); Polychromasia 2.6 % (0.0-1.9); Promyelocyte 1 % (0-0)
[2018-06-02 09:29] LABS: Platelet Estimate Normal (Normal); Platelet Morphology Normal (Normal)
[2018-06-02 09:38] LABS: Alkaline Phosphatase 388 U/L (45-117); Creatine Kinase 16600 U/L (39-308); Total Protein 6.5 g/dL (6.4-8.2)
[2018-06-02 10:03] LABS: CKMB Percent 0.2 % (0.0-4.0); Creatine Kinase MB 28.6 ng/mL (0.5-3.6)
[2018-06-02] MEDS: Polyethylene Glycol 3350 17 GM Packet PO SCH ×2 (10:27→19:59)
[2018-06-02] MEDS: Senna/Docusate Sodium 8.6/50 MG Tablet PO SCH ×2 (10:27→19:59)
[2018-06-02] MEDS: Chlorhexidine 0.12% Oral Kit 15 ML UDC OROPHARYNG SCH ×2 (10:28→19:59)
[2018-06-02] MEDS: Hydrocortisone Acetate 25 MG Supp RECTAL SCH ×3 (10:28→18:29)
[2018-06-02] MEDS: Calcium Acetate 667 MG Capsule PO SCH ×3 (10:28→18:29)
--- NOTE | 2018-06-02 11:30 | P.PNNP ---
Subjective Interval history: Had PermCath placed. Has developed a rash on his abdominal wall, thighs. Also on his back. Physical Exam Vital signs: Vital Signs 06/01/18 12:00 06/01/18 16:00 06/01/18 20:00 Temperature 97.5 F L 97.7 F 98.2 F Pulse Rate 68 111 H 97 H Respiratory Rate 18 18 18 Blood Pressure 108/56 L 101/67 89/54 L Pulse Oximetry 94 L 96 95 06/01/18 20:15 06/02/18 00:00 06/02/18 00:32 Temperature Pulse Rate 103 H 109 H 105 H Respiratory Rate 18 Blood Pressure 106/67 99/58 L 106/64 Pulse Oximetry 96 06/02/18 04:00 06/02/18 08:00 06/02/18 10:36 Temperature 98.3 F 98.2 F 98.2 F Pulse Rate 106 H 125 H 114 H Respiratory Rate 18 18 21 Blood Pressure 105/55 L 96/53 L 110/57 L Pulse Oximetry 94 L 92 L 93 L 06/02/18 11:00 06/02/18 11:05 Temperature Pulse Rate 113 H Respiratory Rate 18 Blood Pressure 108/57 L Pulse Oximetry 93 L 93 L Intake & Output 06/01/18 06/02/18 06/02/18 18:59 06:59 18:59 Intake Total 1400 / 1400 250 / 250 250 / 250 Output Total 100 / 100 Balance 1300 / 1300 250 / 250 250 / 250 Weight 104.2 kg Intake: IV 250 / 250 250 / 250 Pitressin Inj 40 UNIT In D5W 0 / 0 Inj 98 ML @ 0.04 UNITS/MIN 6 mls/hr IV.CONT CONT [facility] Rx#: [id number] Vancomycin Inj 1,000 MG In NS 250 / 250 250 / 250 Inj 250 ML @ 250 mls/hr IV.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 CARDIOVASCULAR: Normal rate and regular rhythm without murmurs, gallops, or rubs. RESPIRATORY: Good respiratory efforts. Breath sounds equal and clear to auscultation bilaterally. GASTROINTESTINAL: Abdomen soft, non-tender, non-distended. Normal active bowel sounds MUSCULOSKELETAL: Extremities without cyanosis, or edema. NEURO: Alert & Oriented x4 to person, place, time, situation. Moves all ext x4 PSYCH: Appropriate mood and affect. Papular rash. - Urinary Catheter Management Indwelling Urethral Catheter Cath placed during this visit: yes, but has since been removed by the nurse Reason for continuing: Decision to DC catheter Insertion date: 05/28/18 Insertion time: 13:30 Removal date: 05/29/18 Removal time: 16:15 Assessment and Plan - Assessment (1) RADHA (acute kidney injury) Code(s): N17.9 - Acute kidney failure, unspecified Status: Acute Plan: He has underlying CKD, baseline creatinine was 1.5-1.6 earlier this year. RADHA is due to rhabdomyolysis. Imaging negative for obstruction. Dialysis initiated on 05/27. Continue to monitor urine output. He has significant proteinuria. Serologies ordered. Repeat UA and proteinuria quantification ordered, not available. Follow CPK. It had improved yesterday. Hold home lisinopril, avoid other nephrotoxins. Repeat labs daily. Dialysis today. Very little urine output. Monitor for renal recovery, so far no signs. (2) Rhabdomyolysis due to statin therapy Code(s): M62.82 - Rhabdomyolysis Status: Acute Plan: Did not improve with hydration, now on HD. (3) Metabolic acidosis Code(s): E87.2 - Acidosis Status: Acute Plan: Due to renal failure Improved. (4) ETOH abuse Code(s): F10.10 - Alcohol abuse, uncomplicated Status: Acute Plan: Cessation has been advised. (5) Respiratory failure Code(s): J96.90 - Respiratory failure, unspecified, unspecified whether with hypoxia or hypercapnia Status: Acute Plan: resolved.
--- NOTE | 2018-06-02 11:38 | IR ---
EXAM DATE: 06/02/2018 9:45 AM EDT AGE/SEX: 53 years / Male INDICATIONS: Patient presents with acute kidney failure in need of permanent dialysis catheter. CLINICAL DATA: This is the patient's initial encounter. Patient reports that signs and symptoms have been present for 1 week and indicates a pain score of 0/10. MEDICAL/SURGICAL HISTORY: Diverticulitis. Leukemia. Hypertension. Hairy cell leukemia, Sleep apnea, smoker, Enlarged prostate, Hemmorrhoids . Hernia repair COMPARISON: No prior exams available for comparison. FLUORO TIME (min): 1.1 IMAGE SERIES: 2 ACCESS SITE: SEDATION TIME (min): 20 MEDICATION(S): 75mcg fentanyl (Sublimaze) IV 1mg lorazepam (Ativan) IV 25mg Benedryhl DEVICE(S): 14F 23cm Perm Cath PROCEDURE: 1. Ultrasound-guided venipuncture. 2. PermaCath placement. 3. Conscious sedation with continuous EKG and oximetry monitoring. The risks, benefits and alternatives to the procedure were explained and verbal and written consent w as obtained. The site was prepped in sterile fashion. Full sterile technique was used, including ca p, mask, sterile gloves and gown and a large sterile sheet. Hand hygiene and 2% chlorhexidine and/or betadine/alcohol prep was utilized per protocol for cutaneous antisepsis. Sterile gel and sterile p robe cover were utilized for ultrasound guidance. The skin and subcutaneous tissues were infiltrated with local anesthetic solution. With ultrasound and fluoroscopic guidance a dermatotomy was created over the prescribed vein. A micr opuncture set was used to access the targeted vein and serial dilatation was performed to accept the prescribed length catheter. A subcutaneous tunnel was created in a retrograde fashion the catheter w as pulled through the tunnel. The catheter was flushed and assembled and locked with heparin. The c atheter was sutured in place. Conscious sedation was performed with the prescribed dosages and duration as above in the presence of an independent trained radiology nurse to assist in the monitoring of the patient. EKG and oximetry remained stable throughout the procedure. The patient tolerated the procedure well and there were n o complications. The patient was sent to post anesthesia recovery in stable condition. CONCLUSION: 1. Uncomplicated PermaCath placement as above. Electronically signed by: Haja Yee MD 06/02/2018 11:36 AM EDT
--- NOTE | 2018-06-02 12:14 | P.PNCA ---
Subjective Interval history: denies chest pain Physical Exam Vital signs: Vital Signs 06/01/18 16:00 06/01/18 20:00 06/01/18 20:15 Temperature 97.7 F 98.2 F Pulse Rate 111 H 97 H 103 H Respiratory Rate 18 18 Blood Pressure 101/67 89/54 L 106/67 Pulse Oximetry 96 95 06/02/18 00:00 06/02/18 00:32 06/02/18 04:00 Temperature 98.3 F Pulse Rate 109 H 105 H 106 H Respiratory Rate 18 18 Blood Pressure 99/58 L 106/64 105/55 L Pulse Oximetry 96 94 L 06/02/18 08:00 06/02/18 10:36 06/02/18 11:00 Temperature 98.2 F 98.2 F Pulse Rate 125 H 114 H Respiratory Rate 18 21 Blood Pressure 96/53 L 110/57 L Pulse Oximetry 92 L 93 L 93 L 06/02/18 11:05 06/02/18 11:38 Temperature 98.2 F Pulse Rate 113 H 110 H Respiratory Rate 18 22 Blood Pressure 108/57 L 96/51 L Pulse Oximetry 93 L 95 Intake & Output 06/01/18 06/02/18 06/02/18 18:59 06:59 18:59 Intake Total 1400 / 1400 250 / 250 250 / 250 Output Total 100 / 100 Balance 1300 / 1300 250 / 250 250 / 250 Weight 104.2 kg Intake: IV 250 / 250 250 / 250 Pitressin Inj 40 UNIT In D5W 0 / 0 Inj 98 ML @ 0.04 UNITS/MIN 6 mls/hr IV.CONT CONT [facility] Rx#: [id number] Vancomycin Inj 1,000 MG In NS 250 / 250 250 / 250 Inj 250 ML @ 250 mls/hr IV.SIG ACID CHANGER [facility] Rx#:[id number] Oral 1400 / 1400 Output: Urine 100 / 100 Other: Date of Last Bowel Movement 05/31/18 06/01/18 # Bowel Movements 4 - Urinary Catheter Management Indwelling Urethral Catheter Cath placed during this visit: yes, but has since been removed by the nurse Reason for continuing: Decision to DC catheter Insertion date: 05/28/18 Insertion time: 13:30 Removal date: 05/29/18 Removal time: 16:15 Assessment and Plan - Assessment (1) Thrombocytopenia Code(s): D69.6 - Thrombocytopenia, unspecified Status: Acute (2) Anemia Code(s): D64.9 - Anemia, unspecified Status: Acute (3) Leukemia Code(s): C95.90 - Leukemia, unspecified not having achieved remission Status: Acute (4) NSTEMI (non-ST elevated myocardial infarction) Code(s): I21.4 - Non-ST elevation (NSTEMI) myocardial infarction Status: Acute (5) Tobacco abuse Code(s): Z72.0 - Tobacco use Status: Acute (6) RADHA (acute kidney injury) Code(s): N17.9 - Acute kidney failure, unspecified Status: Acute (7) ETOH abuse Code(s): F10.10 - Alcohol abuse, uncomplicated Status: Acute (8) Rectal pain Code(s): K62.89 - Other specified diseases of anus and rectum Status: Deleted (9) Metabolic acidosis Code(s): E87.2 - Acidosis Status: Acute (10) Diverticulitis Code(s): K57.92 - Diverticulitis of intestine, part unspecified, without perforation or abscess without bleeding Status: Acute (11) Acute renal failure Code(s): N17.9 - Acute kidney failure, unspecified Status: Acute (12) Transaminitis Code(s): R74.0 - Nonspecific elevation of levels of transaminase and lactic acid dehydrogenase [LDH] Status: Acute (13) Alcohol abuse Code(s): F10.10 - Alcohol abuse, uncomplicated Status: Acute - Plan 1.) NSTEMI - suspect trop elevation due to arf which appears to be due to rhabdomyolysis, he is assymptomatic 2.) Afib - 2d echo ef=50%, [id number] score=1, male gender, ac held due to unstable platelet count, hgb and liver functio, continue to f/u trends in lfts, hgb, plt ct; start aspirin 81 mg qd 06/01/18; not good candidate for ac with noac or coumadin due to alcohol abuse, liver failure, fal risk and unsatble hgg and platelet count 3.) Respiratory failure - ef=50% on echo, assymptomatic 05/27/18, possibly due to volume overload from arf, f/u bnp, retrend trop and cpk; d/w Dr George (11) Acute renal failure Qualifiers: Acute renal failure type: unspecified Qualified Code(s): N17.9 - Acute kidney failure, unspecified
--- NOTE | 2018-06-02 13:49 | P.PNIM ---
Subjective Interval history: Pt resting comfortably in bed. States that he slept well overnight. Continues to have a healthy appetite and bowel movements. Urinary output minimal over 24hrs. Had a PermaCath placed this morning which he tolerated well, and will receive hemodialysis today. Pt is ambulating well. Pt reports a new onset rash on his groin and upper thigh region that is pruritic in nature. Additional ROS was negative. Physical Exam Vital signs: Vital Signs 06/01/18 16:00 06/01/18 20:00 06/01/18 20:15 Temperature 97.7 F 98.2 F Pulse Rate 111 H 97 H 103 H Respiratory Rate 18 18 Blood Pressure 101/67 89/54 L 106/67 Pulse Oximetry 96 95 06/02/18 00:00 06/02/18 00:32 06/02/18 04:00 Temperature 98.3 F Pulse Rate 109 H 105 H 106 H Respiratory Rate 18 18 Blood Pressure 99/58 L 106/64 105/55 L Pulse Oximetry 96 94 L 06/02/18 08:00 06/02/18 10:36 06/02/18 11:00 Temperature 98.2 F 98.2 F Pulse Rate 125 H 114 H Respiratory Rate 18 21 Blood Pressure 96/53 L 110/57 L Pulse Oximetry 92 L 93 L 93 L 06/02/18 11:05 06/02/18 11:38 06/02/18 12:00 Temperature 98.2 F 97.7 F Pulse Rate 113 H 110 H 102 H Respiratory Rate 18 22 21 Blood Pressure 108/57 L 96/51 L 97/59 L Pulse Oximetry 93 L 95 93 L 06/02/18 12:33 Temperature 98 F Pulse Rate 109 H Respiratory Rate 20 Blood Pressure 95/50 L Pulse Oximetry 93 L Intake & Output 06/01/18 06/02/18 06/02/18 18:59 06:59 18:59 Intake Total 1400 / 1400 250 / 250 250 / 250 Output Total 100 / 100 Balance 1300 / 1300 250 / 250 250 / 250 Weight 104.2 kg Intake: IV 250 / 250 250 / 250 Pitressin Inj 40 UNIT In D5W 0 / 0 Inj 98 ML @ 0.04 UNITS/MIN 6 mls/hr IV.CONT CONT [facility] Rx#: [id number] Vancomycin Inj 1,000 MG In NS 250 / 250 250 / 250 Inj 250 ML @ 250 mls/hr IV.SIG [employer]ILDING ARCH[employer]ECT [facility] Rx#:[id number] Oral 1400 / 1400 Output: Urine 100 / 100 Other: Date of Last Bowel Movement 05/31/18 06/01/18 # Bowel Movements 4 - Constitutional no acute distress, obese - Routine HEENT Exam Head: Present: normocephalic, atraumatic Eye: Present: EOMI. Absent: conjunctival icterus, scleral injection - Routine Neck Exam Present: supple, full ROM. Absent: JVD - Routine Respiratory Exam Present: CTA bilaterally. Absent: accessory muscle use, rales, respiratory distress, rhonchi, stridor, wheezes - Routine Cardiovascular Exam Present: RRR, S1, S2. Absent: murmur, gallop, rubs - Routine Abdominal Exam Present: soft, normoactive bowel sounds. Absent: tenderness, distended, rebound , guarding - Routine Skin Exam Present: intact, erythema, dry, rash Comments: erythematous, morbilliform rash noted on the bilateral upper thighs with extension into the groin and suprapubic region. Small area noted in the L axilla. - Routine Neurological Exam Present: alert, oriented X3, CN II-XII intact. Absent: sensory deficit, motor deficit - Urinary Catheter Management Indwelling Urethral Catheter Cath placed during this visit: yes, but has since been removed by the nurse Reason for continuing: Decision to DC catheter Insertion date: 05/28/18 Insertion time: 13:30 Removal date: 05/29/18 Removal time: 16:15 Results - Labs CBC & Chem 7: 06/02/18 07:38 06/02/18 07:38 Laboratory Results - last 24 hr 06/01/18 06/01/18 06/02/18 13:44 17:02 00:33 WBC RBC Hgb Hct MCV MCH MCHC RDW Plt Count MPV Prelim Diff (Auto) Neut % (Auto) Lymph % (Auto) Garrard % (Auto) Eos % (Auto) Baso % (Auto) Neut # (Auto) Lymph # (Auto) Garrard # (Auto) Eos # (Auto) Baso # (Auto) WBC Differential Seg Neuts % (Manual) Band Neuts % (Manual) Lymphocytes % (Manual) Monocytes % (Manual) Eosinophils % (Manual) Metamyelocytes % (Man) Myelocytes % (Man) Promyelocytes % (Man) Plasma Cell % (Manual) Abs Neuts (Manual) Differential Comment Platelet Estimate Platelet Morphology Polychromasia PT INR Sodium Potassium Chloride Carbon Dioxide Anion Gap BUN Creatinine Estimated GFR POC Glucose 165 H 132 H Random Glucose Calcium Phosphorus Magnesium Total Bilirubin AST ALT Alkaline Phosphatase Ammonia Total Creatine Kinase 57779 H CK-MB (CK-2) 36.8 H CK-MB (CK-2) % 0.1 Total Protein Albumin Complement C3 91 Complement C4 23 06/02/18 06/02/18 06/02/18 06:12 07:38 07:38 WBC 12.1 H RBC 2.96 L Hgb 10.9 L Hct 32.7 L MCV 110.6 H MCH 36.8 H MCHC 33.3 RDW 19.3 H Plt Count 172 MPV 9.0 Prelim Diff (Auto) Slide review pending Neut % (Auto) 83.6 H Lymph % (Auto) 8.2 L Garrard % (Auto) 5.9 Eos % (Auto) 0.9 Baso % (Auto) 1.4 Neut # (Auto) 10.1 H Lymph # (Auto) 1.0 Garrard # (Auto) 0.7 Eos # (Auto) 0.1 Baso # (Auto) 0.2 WBC Differential Manual diff final Seg Neuts % (Manual) 64 Band Neuts % (Manual) 16 H Lymphocytes % (Manual) 1 L Monocytes % (Manual) 3 Eosinophils % (Manual) 4 Metamyelocytes % (Man) 7 H Myelocytes % (Man) 3 H Promyelocytes % (Man) 1 H Plasma Cell % (Manual) 1 H Abs Neuts (Manual) 11.0 H Differential Comment . Platelet Estimate Normal Platelet Morphology Normal Polychromasia 2.6 H PT 11.3 INR 1.1 Sodium Potassium Chloride Carbon Dioxide Anion Gap BUN Creatinine Estimated GFR POC Glucose 117 H Random Glucose Calcium Phosphorus Magnesium Total Bilirubin AST ALT Alkaline Phosphatase Ammonia Total Creatine Kinase CK-MB (CK-2) CK-MB (CK-2) % Total Protein Albumin Complement C3 Complement C4 06/02/18 06/02/18 06/02/18 07:38 07:38 12:39 WBC RBC Hgb Hct MCV MCH MCHC RDW Plt Count MPV Prelim Diff (Auto) Neut % (Auto) Lymph % (Auto) Garrard % (Auto) Eos % (Auto) Baso % (Auto) Neut # (Auto) Lymph # (Auto) Garrard # (Auto) Eos # (Auto) Baso # (Auto) WBC Differential Seg Neuts % (Manual) Band Neuts % (Manual) Lymphocytes % (Manual) Monocytes % (Manual) Eosinophils % (Manual) Metamyelocytes % (Man) Myelocytes % (Man) Promyelocytes % (Man) Plasma Cell % (Manual) Abs Neuts (Manual) Differential Comment Platelet Estimate Platelet Morphology Polychromasia PT INR Sodium 134 L Potassium 5.3 H Chloride 94 L Carbon Dioxide 27.4 Anion Gap 13 BUN 57 H Creatinine 8.88 H Estimated GFR 6 L POC Glucose 165 H Random Glucose 111 H Calcium 8.2 L Phosphorus 4.2 Magnesium 1.9 Total Bilirubin 3.1 H AST 799 H ALT 695 H Alkaline Phosphatase 388 H Ammonia 22 Total Creatine Kinase 89684 H CK-MB (CK-2) 28.6 H CK-MB (CK-2) % 0.2 Total Protein 6.5 Albumin 2.0 L Complement C3 Complement C4 - Imaging Impressions Central Venous Line 06/02/18 00:00 CONCLUSION: 1. Uncomplicated PermaCath placement as above. - Procedures TO HAVE HD CATHETER PLACED TODAY Assessment and Plan - Plan 53yo M admitted for diverticulitis with rhabdomyolysis, RADHA and alcohol use with new onset rash: 1. diverticulitis - resolved, antibiotics have been d/c - pain medication held for observed hypotension 2. rhabdomyolysis: -continue to monitor CPK, potassium, phosphorus and renal function 3. RADHA: - permacath placed today with plans for hemodialysis -continue to be followed by nephrology -renal diet - continue to monitor renal function, electrolytes and urinary output 4. DVT prophylaxis 5. alcohol dependence - substance abuse counseling - does not need to undergo CIWA protocol 6. Rash, possible allergic reaction: -Benadryl 25mg PO PRN - Attending Attestation The exam, history, and the medical decision-making described in the above note were completed with the assistance of MS4 Sam Serrano. I reviewed and agree with the findings presented. I attest that I had a [id number] encounter with the patient on the same day, and personally performed and documented my assessment and findings in the medical record. 53-year-old male with acute hypoxic and hypercarbic respiratory failure and acute severe metabolic encephalopathy with associated multiorgan failure including renal failure and liver failure. Patient required intubation and has been in the ICU in acute shock requiring pressors. He has improved and stabilized therefore transferred to the hospitalist service Acute hypoxic and hypercarbic respiratory failure: Status post intubation and extubation. - Doing well on. - Supplemental oxygen as needed. - Breathing treatments as needed. Acute renal failure secondary to rhabdomyolysis. Patient requiring hemodialysis -Ongoing hemodialysis per nephrology. Unclear if he will recover. -Vas-Cath in place. Permacath ordered per nephrology. -Avoid nephrotoxins. Acute liver failure secondary to alcohol: - Follow LFTs. -Continue lactulose Statin induced rhabdomyolysis: -Ongoing hemodialysis as above. -Follow CK levels. Alcohol dependence: - Off CIWA protocol. - No signs of withdrawal currently Acute diverticulitis/rectal pain: -Concerned he might have developed a rash from antibiotics. Discontinue Cipro and Flagyl. Continue to monitor. -Pain medication as needed. Rash: Could be allergic reaction. Medicine discontinue Cipro. Benadryl as needed. Continue to monitor Elevated troponin/atrial fibrillation: -Appreciate cardiology following. Elevation of cardiac enzymes likely secondary to renal failure. Not a candidate for anticoagulation due to bleeding. -Continue metoprolol for better rate control. Discharge Planning: Continue hemodialysis. Unclear if renal functions will recover.
[2018-06-02] MEDS ORDERED: Acetaminophen 500 MG Tablet PO PRN (13:59)
[2018-06-03] MEDS: oxyCODONE/Acetaminophen 10/325 Tablet PO PRN ×5 (00:07→21:07)
[2018-06-03] MEDS: Oral Hygiene Kit OROPHARYNG SCH ×4 (00:12→16:11)
[2018-06-03] MEDS: Heparin - SQ 10,000 UNITS/ML Vial SQ SCH ×3 (06:28→21:06)
[2018-06-03 06:47] LABS: INR 1.1 Ratio; Prothrombin Time 11.2 sec (9.8-11.6)
[2018-06-03 07:19] LABS: Alanine Aminotransferase 600 U/L (12-78); Albumin 2.1 g/dL (3.4-5.0); Alkaline Phosphatase 388 U/L (45-117); Anion Gap 11 meq/L (5-15); Aspartate Aminotransferase 488 U/L (15-37); Blood Urea Nitrogen 41 mg/dL (7-18); Calcium 8.3 mg/dL (8.5-10.1); Carbon Dioxide 30.2 meq/L (21.0-32.0); Chloride 93 meq/L (98-107); Glomerular Filtration Rate 8 mL/min (>89); Glucose,Random 106 mg/dL (74-106); Phosphorus 3.7 mg/dL (2.5-4.9); Potassium 4.1 meq/L (3.5-5.1); Sodium 134 meq/L (136-145)
[2018-06-03 07:23] LABS: Baso % (Auto) 0.3 % (0.0-2.0); Eos # (Auto) 0.2 th/mm3 (0.0-0.4); Eos % (Auto) 1.7 % (0.0-4.0); Hematocrit 34.6 % (39.0-51.0); Hemoglobin 11.1 gm/dL (13.0-17.0); Lymph # (Auto) 0.6 th/mm3 (1.0-4.8); Lymph % (Auto) 5.2 % (9.0-44.0); Mean Corpuscular Hemoglobin 36.1 pg (27.0-34.0); Mean Corpuscular Volume 112.8 fL (80.0-100.0); Mean Platelet Volume 9.3 fL (7.0-11.0); Mono # (Auto) 0.6 th/mm3 (0.0-0.9); Mono % (Auto) 4.5 % (0.0-8.0); Neut # (Auto) 10.9 th/mm3 (1.8-7.7); Neut % (Auto) 88.3 % (16.0-70.0); Platelet Count 188 th/mm3 (150-450); Red Blood Count 3.07 mil/mm3 (4.50-5.90); Red Cell Distribution Width 19.9 % (11.6-17.2); White Blood Count 12.4 th/mm3 (4.0-11.0)
[2018-06-03] MEDS: Calcium Acetate 667 MG Capsule PO SCH ×3 (08:01→17:36)
[2018-06-03] MEDS: Chlorhexidine 0.12% Oral Kit 15 ML UDC OROPHARYNG SCH ×2 (08:02→21:08)
[2018-06-03] MEDS: Senna/Docusate Sodium 8.6/50 MG Tablet PO SCH ×2 (08:02→21:08)
[2018-06-03] MEDS: Polyethylene Glycol 3350 17 GM Packet PO SCH ×2 (08:02→21:08)
[2018-06-03] MEDS: Hydrocortisone Acetate 25 MG Supp RECTAL SCH ×3 (08:03→17:36)
[2018-06-03 08:44] LABS: Lymphocytes 5 % (9-44); Metamyelocytes 4 % (0-1); Monocytes 5 % (0-8); Myelocytes 5 % (0-0); Platelet Estimate Normal (Normal); Platelet Morphology Normal (Normal); Tallied Nucleated RBC 1 (0-0); Toxic Granulation 1+
--- NOTE | 2018-06-03 12:47 | P.PNCA ---
Subjective Interval history: alert in nad Physical Exam Vital signs: Vital Signs 06/02/18 19:45 06/02/18 21:39 06/03/18 00:00 Temperature 98.2 F 98 F Pulse Rate 103 H 108 H 116 H Respiratory Rate 18 20 Blood Pressure 104/51 L 119/64 119/60 Pulse Oximetry 96 97 06/03/18 04:00 06/03/18 06:22 06/03/18 07:00 Temperature 98.1 F Pulse Rate 111 H 103 H Respiratory Rate 18 12 Blood Pressure 85/62 L 88/52 L Pulse Oximetry 96 06/03/18 08:00 06/03/18 12:00 Temperature 98.1 F 97.8 F Pulse Rate 112 H 109 H Respiratory Rate 22 20 Blood Pressure 110/55 L 101/58 L Pulse Oximetry 97 95 Intake & Output 06/02/18 06/03/18 06/03/18 18:59 06:59 18:59 Intake Total 250 / 250 Balance 250 / 250 Weight 102.3 kg Intake: IV 250 / 250 Vancomycin Inj 1,000 MG In NS 250 / 250 Inj 250 ML @ 250 mls/hr IV.SIG PUMPING PL[employer]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 [facility] Rx#:[id number] Other: # Voids 1 1 Date of Last Bowel Movement 06/03/18 # Bowel Movements 4 - Urinary Catheter Management Indwelling Urethral Catheter Cath placed during this visit: yes, but has since been removed by the nurse Reason for continuing: Decision to DC catheter Insertion date: 05/28/18 Insertion time: 13:30 Removal date: 05/29/18 Removal time: 16:15 Assessment and Plan - Assessment (1) Thrombocytopenia Code(s): D69.6 - Thrombocytopenia, unspecified Status: Acute (2) Anemia Code(s): D64.9 - Anemia, unspecified Status: Acute (3) Leukemia Code(s): C95.90 - Leukemia, unspecified not having achieved remission Status: Acute (4) NSTEMI (non-ST elevated myocardial infarction) Code(s): I21.4 - Non-ST elevation (NSTEMI) myocardial infarction Status: Acute (5) Tobacco abuse Code(s): Z72.0 - Tobacco use Status: Acute (6) RADHA (acute kidney injury) Code(s): N17.9 - Acute kidney failure, unspecified Status: Acute (7) ETOH abuse Code(s): F10.10 - Alcohol abuse, uncomplicated Status: Acute (8) Rectal pain Code(s): K62.89 - Other specified diseases of anus and rectum Status: Deleted (9) Metabolic acidosis Code(s): E87.2 - Acidosis Status: Acute (10) Diverticulitis Code(s): K57.92 - Diverticulitis of intestine, part unspecified, without perforation or abscess without bleeding Status: Acute (11) Acute renal failure Code(s): N17.9 - Acute kidney failure, unspecified Status: Acute (12) Transaminitis Code(s): R74.0 - Nonspecific elevation of levels of transaminase and lactic acid dehydrogenase [LDH] Status: Acute (13) Alcohol abuse Code(s): F10.10 - Alcohol abuse, uncomplicated Status: Acute - Plan 1.) NSTEMI - suspect trop elevation due to arf which appears to be due to rhabdomyolysis, he is assymptomatic 2.) Afib - 2d echo ef=50%, [id number] score=1, male gender, ac held due to unstable platelet count, hgb and liver functio, continue to f/u trends in lfts, hgb, plt ct; start aspirin 81 mg qd 06/01/18; not good candidate for ac with noac or coumadin due to alcohol abuse, liver failure, fall risk and unstable hgb and platelet count 3.) Respiratory failure - ef=50% on echo, assymptomatic 05/27/18, possibly due to volume overload from arf, f/u bnp, retrend trop and cpk; d/w Dr George (11) Acute renal failure Qualifiers: Acute renal failure type: unspecified Qualified Code(s): N17.9 - Acute kidney failure, unspecified
--- NOTE | 2018-06-03 14:29 | P.PNONC ---
Subjective Interval history: Afebrile Patient resting in bed talking with his mother Desperately wants to take shower Asking to speak with dietitian for questions about renal diet Objective Vital Signs/Intake & Output: Vital Signs 06/02/18 19:45 06/02/18 21:39 06/03/18 00:00 Temperature 98.2 F 98 F Pulse Rate 103 H 108 H 116 H Respiratory Rate 18 20 Blood Pressure 104/51 L 119/64 119/60 Pulse Oximetry 96 97 06/03/18 04:00 06/03/18 06:22 06/03/18 07:00 Temperature 98.1 F Pulse Rate 111 H 103 H Respiratory Rate 18 12 Blood Pressure 85/62 L 88/52 L Pulse Oximetry 96 06/03/18 08:00 06/03/18 12:00 Temperature 98.1 F 97.8 F Pulse Rate 112 H 109 H Respiratory Rate 22 20 Blood Pressure 110/55 L 101/58 L Pulse Oximetry 97 95 Intake & Output 06/02/18 06/03/18 06/03/18 18:59 06:59 18:59 Intake Total 250 / 250 Balance 250 / 250 Weight 225 lb 8.526 oz Intake: IV 250 / 250 Vancomycin Inj 1,000 MG In NS 250 / 250 Inj 250 ML @ 250 mls/hr IV.SIG MEDIA ANALYTICS MANAGER [facility] Rx#:[id number] Other: # Voids 1 1 Date of Last Bowel Movement 06/03/18 # Bowel Movements 4 Result Diagrams: 06/03/18 06:18 06/03/18 06:18 Laboratory Results: Laboratory Results - last 24 hr 06/01/18 06/02/18 06/03/18 13:44 16:38 00:06 WBC RBC Hgb Hct MCV MCH MCHC RDW Plt Count MPV Prelim Diff (Auto) Neut % (Auto) Lymph % (Auto) [place] % (Auto) Eos % (Auto) Baso % (Auto) Neut # (Auto) Lymph # (Auto) [place] # (Auto) Eos # (Auto) Baso # (Auto) WBC Differential Seg Neuts % (Manual) Band Neuts % (Manual) Lymphocytes % (Manual) Monocytes % (Manual) Metamyelocytes % (Man) Myelocytes % (Man) Abs Neuts (Manual) Nucleated RBCs/100 WBC Differential Comment Toxic Granulation Platelet Estimate Platelet Morphology Polychromasia PT INR Sodium Potassium Chloride Carbon Dioxide Anion Gap BUN Creatinine Estimated GFR POC Glucose 111 H 137 H Random Glucose Calcium Phosphorus Magnesium Total Bilirubin AST ALT Alkaline Phosphatase Ammonia Total Creatine Kinase Total Protein Albumin ATIF Screen Neg 06/03/18 06/03/18 06/03/18 06:18 06:18 06:18 WBC 12.4 H RBC 3.07 L Hgb 11.1 L Hct 34.6 L MCV 112.8 H MCH 36.1 H MCHC 32.0 RDW 19.9 H Plt Count 188 MPV 9.3 Prelim Diff (Auto) Slide review pending Neut % (Auto) 88.3 H Lymph % (Auto) 5.2 L [place] % (Auto) 4.5 Eos % (Auto) 1.7 Baso % (Auto) 0.3 Neut # (Auto) 10.9 H Lymph # (Auto) 0.6 L [place] # (Auto) 0.6 Eos # (Auto) 0.2 Baso # (Auto) 0.0 WBC Differential Manual diff final Seg Neuts % (Manual) 72 H Band Neuts % (Manual) 9 H Lymphocytes % (Manual) 5 L Monocytes % (Manual) 5 Metamyelocytes % (Man) 4 H Myelocytes % (Man) 5 H Abs Neuts (Manual) 11.2 H Nucleated RBCs/100 WBC 1 H Differential Comment . Toxic Granulation 1+ H Platelet Estimate Normal Platelet Morphology Normal Polychromasia 2.0 H PT 11.2 INR 1.1 Sodium 134 L Potassium 4.1 D Chloride 93 L Carbon Dioxide 30.2 Anion Gap 11 BUN 41 H Creatinine 7.09 H Estimated GFR 8 L POC Glucose Random Glucose 106 Calcium 8.3 L Phosphorus 3.7 Magnesium 2.0 Total Bilirubin 2.9 H AST 488 H ALT 600 H Alkaline Phosphatase 388 H Ammonia Total Creatine Kinase Total Protein 7.0 Albumin 2.1 L ATIF Screen 06/03/18 06/03/18 06/03/18 06:18 06:18 06:25 WBC RBC Hgb Hct MCV MCH MCHC RDW Plt Count MPV Prelim Diff (Auto) Neut % (Auto) Lymph % (Auto) [place] % (Auto) Eos % (Auto) Baso % (Auto) Neut # (Auto) Lymph # (Auto) [place] # (Auto) Eos # (Auto) Baso # (Auto) WBC Differential Seg Neuts % (Manual) Band Neuts % (Manual) Lymphocytes % (Manual) Monocytes % (Manual) Metamyelocytes % (Man) Myelocytes % (Man) Abs Neuts (Manual) Nucleated RBCs/100 WBC Differential Comment Toxic Granulation Platelet Estimate Platelet Morphology Polychromasia PT INR Sodium Potassium Chloride Carbon Dioxide Anion Gap BUN Creatinine Estimated GFR POC Glucose 123 H Random Glucose Calcium Phosphorus Magnesium Total Bilirubin AST ALT Alkaline Phosphatase Ammonia 19 Total Creatine Kinase 6647 H Total Protein Albumin ATIF Screen 06/03/18 11:29 WBC RBC Hgb Hct MCV MCH MCHC RDW Plt Count MPV Prelim Diff (Auto) Neut % (Auto) Lymph % (Auto) [place] % (Auto) Eos % (Auto) Baso % (Auto) Neut # (Auto) Lymph # (Auto) [place] # (Auto) Eos # (Auto) Baso # (Auto) WBC Differential Seg Neuts % (Manual) Band Neuts % (Manual) Lymphocytes % (Manual) Monocytes % (Manual) Metamyelocytes % (Man) Myelocytes % (Man) Abs Neuts (Manual) Nucleated RBCs/100 WBC Differential Comment Toxic Granulation Platelet Estimate Platelet Morphology Polychromasia PT INR Sodium Potassium Chloride Carbon Dioxide Anion Gap BUN Creatinine Estimated GFR POC Glucose 161 H Random Glucose Calcium Phosphorus Magnesium Total Bilirubin AST ALT Alkaline Phosphatase Ammonia Total Creatine Kinase Total Protein Albumin ATIF Screen Medications: Active Medications Generic Name Dose Route Start Last Admin Trade Name Freq PRN Reason Stop Dose Admin Aspirin 81 mg 06/01/18 09:00 06/03/18 08:02 Ecotrin PO Not Given DAILY WEI Calcium Acetate 667 mg 05/27/18 13:00 06/03/18 12:07 Phoslo PO 667 mg TID WEI Administration Chlorhexidine Gluconate 15 ml 05/28/18 08:00 06/03/18 08:02 Peridex 0.12% Oral Kit OROPHARYNG Not Given BID@ WEI Diphenhydramine HCl 25 mg 06/02/18 13:58 06/03/18 08:01 Benadryl PO 25 mg Q4H PRN Administration ITCHING Gentamicin Sulfate 20 mg 05/27/18 09:32 05/31/18 12:27 Gentamicin Inj OTHER 20 mg WITH DIALYSIS PRN Administration Dwell Gentamycin Lock Heparin Sodium (Porcine) 5,000 units 05/26/18 18:00 06/03/18 13:40 Heparin Inj SQ 5,000 units Q8HR WEI Administration Heparin Sodium (Porcine) 1,000 units 05/27/18 09:32 05/31/18 12:27 Heparin Inj OTHER 1,000 units WITH DIALYSIS PRN Administration Dwell Heparin to Fill Catheter Hydrocortisone Acetate 25 mg 05/26/18 18:00 06/03/18 12:04 Hemorrhoidal Hc Supp RECTAL Not Given TID WEI Albumin Human 100 mls @ 60 mls/hr 05/27/18 09:32 05/27/18 18:14 Flexbumin 25% Inj IV.SIG Infused WITH DIALYSIS PRN Infusion hypotension / volume replace Vasopressin 40 unit/ Dextrose 100 mls @ 6 mls/hr 05/29/18 14:00 06/01/18 19: 33 IV.CONT Infused CONT [facility] Infusion Protocol 0.04 UNITS/MIN Vancomycin HCl 1,000 mg/ 250 mls @ 250 mls/hr 06/01/18 14:00 06/02/18 10:00 Sodium Chloride IV.SIG 06/05/18 13:59 Infused MEDIA ANALYTICS MANAGER [facility] Infusion Insulin Human Regular 1 units 05/28/18 12:00 06/03/18 11:31 Novolin R Inj SQ Not Given Q6HR [facility] Protocol Lactulose 30 ml 05/28/18 09:00 06/03/18 08:01 Lactulose Liq PO 30 ml BID WEI Administration Ondansetron HCl 4 mg 05/26/18 12:43 05/30/18 20:46 Zofran Inj IV.PUSH 4 mg Q6H PRN Administration NAUSEA OR VOMITING Oxycodone/Acetaminophen 1 tab 06/01/18 16:20 06/03/18 12:07 Percocet 10/325 Mg PO 1 tab Q4H PRN Administration PAIN SCALE 7 TO 10 SEVERE Pantoprazole Sodium 40 mg 05/26/18 14:00 06/03/18 08:01 Protonix PO 40 mg DAILY [facility] Administration Polyethylene Glycol 17 gm 05/28/18 09:00 06/03/18 08:02 Miralax PO Not Given BID [facility] Senna/Docusate Sodium 1 tab 05/28/18 09:00 06/03/18 08:02 Najma-Colace PO Not Given BID [facility] Thiamine HCl 100 mg 05/26/18 14:00 06/03/18 08:01 Vitamin B1 PO 100 mg DAILY WEI Administration Zolpidem Tartrate 5 mg 05/26/18 12:43 06/01/18 01:51 Ambien PO 5 mg HS PRN Administration INSOMNIA Objective Remarks: GENERAL: Chronically ill-appearing male patient, lying in bed in no acute distress. SKIN: Warm and dry. HEAD: Normocephalic. EYES: No scleral icterus. No injection or drainage. NECK: Supple, trachea midline. CARDIOVASCULAR: Irregularly irregular rate. RESPIRATORY: Breath sounds equal bilaterally. No accessory muscle use. GASTROINTESTINAL: Abdomen soft, non-tender, nondistended. EXTREMITIES: No cyanosis. Bilateral lower extremity edema. MUSCULOSKELETAL: Generalized weakness NEUROLOGICAL: No obvious focal deficit. Awake, alert, and oriented x3. 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 This admission the patient was admitted for nausea and vomiting, found to be hypoxic with changes in mental status, he was intubated. Patient has since been extubated. He is receiving hemodialysis. 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 Plan: 1. History of hairy cell leukemia. There is no evidence of recurrence at this time. Flow cytometry revealed abnormalities in cellular composition with the myeloid predominance and left shifted myeloid maturation. There is no diagnostic flow cytometric evidence for an abnormal or neoplastic leukocyte population in the analyzed sample. 2. Patient may take a shower with Vas-Cath covered as long as he has assistance as he appears to be deconditioned. I have also consulted dietitian to speak with patient and his mother per their request. 3. Oncology will sign off at this time. The patient has an established oncologist in [place] that he follows up with for his history of hairy cell leukemia. (2) Acute renal failure Qualifiers: Acute renal failure type: unspecified Qualified Code(s): N17.9 - Acute kidney failure, unspecified
[2018-06-03 14:33] LABS: CKMB Percent 0.4 % (0.0-4.0); Creatine Kinase MB 28.7 ng/mL (0.5-3.6)
--- NOTE | 2018-06-03 15:29 | P.PNIM ---
Subjective Interval history: Patient remains anuric. No new complaints. Physical Exam Vital signs: Vital Signs 06/02/18 19:45 06/02/18 21:39 06/03/18 00:00 Temperature 98.2 F 98 F Pulse Rate 103 H 108 H 116 H Respiratory Rate 18 20 Blood Pressure 104/51 L 119/64 119/60 Pulse Oximetry 96 97 06/03/18 04:00 06/03/18 06:22 06/03/18 07:00 Temperature 98.1 F Pulse Rate 111 H 103 H Respiratory Rate 18 12 Blood Pressure 85/62 L 88/52 L Pulse Oximetry 96 06/03/18 08:00 06/03/18 12:00 Temperature 98.1 F 97.8 F Pulse Rate 112 H 109 H Respiratory Rate 22 20 Blood Pressure 110/55 L 101/58 L Pulse Oximetry 97 95 Intake & Output 06/02/18 06/03/18 06/03/18 18:59 06:59 18:59 Intake Total 250 / 250 Balance 250 / 250 Weight 102.3 kg Intake: IV 250 / 250 Vancomycin Inj 1,000 MG In NS 250 / 250 Inj 250 ML @ 250 mls/hr IV.SIG RIB BENDER [facility] Rx#:[id number] Other: # Voids 1 1 Date of Last Bowel Movement 06/03/18 # Bowel Movements 4 Narrative: GENERAL: This is a well-nourished, well-developed patient, in no apparent distress. SKIN:erythematous, morbilliform rash noted on the bilateral upper thighs with extension into the groin and suprapubic region. Small area noted in the L axilla. CARDIOVASCULAR: Normal rate and regular rhythm without murmurs, gallops, or rubs. RESPIRATORY: Good respiratory efforts. Breath sounds equal and clear to auscultation bilaterally. GASTROINTESTINAL: Abdomen soft, non-tender, non-distended. Normal active bowel sounds MUSCULOSKELETAL: Extremities without cyanosis, or edema. NEURO: Alert & Oriented x4 to person, place, time, situation. Moves all ext x4 PSYCH: Appropriate mood and affect. - Urinary Catheter Management Indwelling Urethral Catheter Cath placed during this visit: yes, but has since been removed by the nurse Reason for continuing: Decision to DC catheter Insertion date: 05/28/18 Insertion time: 13:30 Removal date: 05/29/18 Removal time: 16:15 Results - Labs CBC & Chem 7: 06/03/18 06:18 06/03/18 06:18 Laboratory Results - last 24 hr 06/02/18 06/03/18 06/03/18 16:38 00:06 06:18 WBC 12.4 H RBC 3.07 L Hgb 11.1 L Hct 34.6 L MCV 112.8 H MCH 36.1 H MCHC 32.0 RDW 19.9 H Plt Count 188 MPV 9.3 Prelim Diff (Auto) Slide review pending Neut % (Auto) 88.3 H Lymph % (Auto) 5.2 L [place] % (Auto) 4.5 Eos % (Auto) 1.7 Baso % (Auto) 0.3 Neut # (Auto) 10.9 H Lymph # (Auto) 0.6 L [place] # (Auto) 0.6 Eos # (Auto) 0.2 Baso # (Auto) 0.0 WBC Differential Manual diff final Seg Neuts % (Manual) 72 H Band Neuts % (Manual) 9 H Lymphocytes % (Manual) 5 L Monocytes % (Manual) 5 Metamyelocytes % (Man) 4 H Myelocytes % (Man) 5 H Abs Neuts (Manual) 11.2 H Nucleated RBCs/100 WBC 1 H Differential Comment . Toxic Granulation 1+ H Platelet Estimate Normal Platelet Morphology Normal Polychromasia 2.0 H PT INR Sodium Potassium Chloride Carbon Dioxide Anion Gap BUN Creatinine Estimated GFR POC Glucose 111 H 137 H Random Glucose Calcium Phosphorus Magnesium Total Bilirubin AST ALT Alkaline Phosphatase Ammonia Total Creatine Kinase CK-MB (CK-2) CK-MB (CK-2) % Total Protein Albumin 06/03/18 06/03/18 06/03/18 06:18 06:18 06:18 WBC RBC Hgb Hct MCV MCH MCHC RDW Plt Count MPV Prelim Diff (Auto) Neut % (Auto) Lymph % (Auto) [place] % (Auto) Eos % (Auto) Baso % (Auto) Neut # (Auto) Lymph # (Auto) [place] # (Auto) Eos # (Auto) Baso # (Auto) WBC Differential Seg Neuts % (Manual) Band Neuts % (Manual) Lymphocytes % (Manual) Monocytes % (Manual) Metamyelocytes % (Man) Myelocytes % (Man) Abs Neuts (Manual) Nucleated RBCs/100 WBC Differential Comment Toxic Granulation Platelet Estimate Platelet Morphology Polychromasia PT 11.2 INR 1.1 Sodium 134 L Potassium 4.1 D Chloride 93 L Carbon Dioxide 30.2 Anion Gap 11 BUN 41 H Creatinine 7.09 H Estimated GFR 8 L POC Glucose Random Glucose 106 Calcium 8.3 L Phosphorus 3.7 Magnesium 2.0 Total Bilirubin 2.9 H AST 488 H ALT 600 H Alkaline Phosphatase 388 H Ammonia 19 Total Creatine Kinase CK-MB (CK-2) CK-MB (CK-2) % Total Protein 7.0 Albumin 2.1 L 06/03/18 06/03/18 06/03/18 06:18 06:25 11:29 WBC RBC Hgb Hct MCV MCH MCHC RDW Plt Count MPV Prelim Diff (Auto) Neut % (Auto) Lymph % (Auto) [place] % (Auto) Eos % (Auto) Baso % (Auto) Neut # (Auto) Lymph # (Auto) [place] # (Auto) Eos # (Auto) Baso # (Auto) WBC Differential Seg Neuts % (Manual) Band Neuts % (Manual) Lymphocytes % (Manual) Monocytes % (Manual) Metamyelocytes % (Man) Myelocytes % (Man) Abs Neuts (Manual) Nucleated RBCs/100 WBC Differential Comment Toxic Granulation Platelet Estimate Platelet Morphology Polychromasia PT INR Sodium Potassium Chloride Carbon Dioxide Anion Gap BUN Creatinine Estimated GFR POC Glucose 123 H 161 H Random Glucose Calcium Phosphorus Magnesium Total Bilirubin AST ALT Alkaline Phosphatase Ammonia Total Creatine Kinase 6647 H CK-MB (CK-2) 28.7 H CK-MB (CK-2) % 0.4 Total Protein Albumin - Procedures TO HAVE HD CATHETER PLACED TODAY Assessment and Plan - Plan 53-year-old male with acute hypoxic and hypercarbic respiratory failure and acute severe metabolic encephalopathy with associated multiorgan failure including renal failure and liver failure. Patient required intubation and has been in the ICU in acute shock requiring pressors. He has improved and stabilized therefore transferred to the hospitalist service Acute hypoxic and hypercarbic respiratory failure: Status post intubation and extubation. - Doing well on. - Supplemental oxygen as needed. - Breathing treatments as needed. Acute renal failure secondary to rhabdomyolysis. Patient requiring hemodialysis -Ongoing hemodialysis per nephrology. Unclear if he will recover. -Vas-Cath in place. Permacath ordered per nephrology. -Avoid nephrotoxins. - Continue hemodialysis. Awaiting return of renal functions. Acute liver failure secondary to alcohol: - Follow LFTs. -Continue lactulose Statin induced rhabdomyolysis: -Ongoing hemodialysis as above. -Follow CK levels. Alcohol dependence: - Off CIWA protocol. - No signs of withdrawal currently Acute diverticulitis/rectal pain: -Concerned he might have developed a rash from antibiotics. Discontinue Cipro and Flagyl. Continue to monitor. -Pain medication as needed. Rash: Could be allergic reaction. Medicine discontinue Cipro. Benadryl as needed. Continue to monitor Elevated troponin/atrial fibrillation: -Appreciate cardiology following. Elevation of cardiac enzymes likely secondary to renal failure. Not a candidate for anticoagulation due to bleeding. -Continue metoprolol for better rate control. Discharge Planning: Continue hemodialysis. Unclear if renal functions will recover.
--- NOTE | 2018-06-03 16:42 | P.PNNP ---
Subjective Interval history: patient remains oligoanuric. Had dialysis yesterday. He is awake, comfortable. Skin rash persists. Physical Exam Vital signs: Vital Signs 06/02/18 19:45 06/02/18 21:39 06/03/18 00:00 Temperature 98.2 F 98 F Pulse Rate 103 H 108 H 116 H Respiratory Rate 18 20 Blood Pressure 104/51 L 119/64 119/60 Pulse Oximetry 96 97 06/03/18 04:00 06/03/18 06:22 06/03/18 07:00 Temperature 98.1 F Pulse Rate 111 H 103 H Respiratory Rate 18 12 Blood Pressure 85/62 L 88/52 L Pulse Oximetry 96 06/03/18 08:00 06/03/18 12:00 Temperature 98.1 F 97.8 F Pulse Rate 112 H 109 H Respiratory Rate 22 20 Blood Pressure 110/55 L 101/58 L Pulse Oximetry 97 95 Intake & Output 06/02/18 06/03/18 06/03/18 18:59 06:59 18:59 Intake Total 250 / 250 Balance 250 / 250 Weight 102.3 kg Intake: IV 250 / 250 Vancomycin Inj 1,000 MG In NS 250 / 250 Inj 250 ML @ 250 mls/hr IV.SIG CAREER REPRESENTATIVE [facility] Rx#:[id number] Other: # Voids 1 1 Date of Last Bowel Movement 06/03/18 # Bowel Movements 4 Narrative: GENERAL: Obese male in no apparent distress. CARDIOVASCULAR: Normal rate and regular rhythm without murmurs, gallops, or rubs. RESPIRATORY: Good respiratory efforts. Breath sounds equal and clear to auscultation bilaterally. GASTROINTESTINAL: Abdomen soft, non-tender, non-distended. Normal active bowel sounds MUSCULOSKELETAL: Extremities without cyanosis, or edema. NEURO: Alert & Oriented x4 to person, place, time, situation. Moves all extremities. PSYCH: Appropriate mood and affect. Papular rash. - Urinary Catheter Management Indwelling Urethral Catheter Cath placed during this visit: yes, but has since been removed by the nurse Reason for continuing: Decision to DC catheter Insertion date: 05/28/18 Insertion time: 13:30 Removal date: 05/29/18 Removal time: 16:15 Assessment and Plan - Assessment (1) RADHA (acute kidney injury) Code(s): N17.9 - Acute kidney failure, unspecified Status: Acute Plan: He has underlying CKD, baseline creatinine was 1.5-1.6 earlier this year. RADHA is due to rhabdomyolysis. Imaging negative for obstruction. Dialysis initiated on 05/27. Continue to monitor urine output. He has significant proteinuria. Serologies ordered. ATIF negative. Complements normal. Repeat UA and proteinuria quantification ordered, not available. CPK had improved. Hold home lisinopril, avoid other nephrotoxins. Repeat labs daily. Dialysis tomorrow Very little urine output. Monitor for renal recovery, so far no signs. (2) Rhabdomyolysis due to statin therapy Code(s): M62.82 - Rhabdomyolysis Status: Acute Plan: Did not improve with hydration, now on HD. (3) Metabolic acidosis Code(s): E87.2 - Acidosis Status: Acute Plan: Due to renal failure Improved. (4) ETOH abuse Code(s): F10.10 - Alcohol abuse, uncomplicated Status: Acute Plan: Cessation has been advised. (5) Respiratory failure Code(s): J96.90 - Respiratory failure, unspecified, unspecified whether with hypoxia or hypercapnia Status: Acute Plan: resolved.
[2018-06-04] MEDS: Oral Hygiene Kit OROPHARYNG SCH ×4 (00:44→15:01)
[2018-06-04] MEDS: oxyCODONE/Acetaminophen 10/325 Tablet PO PRN ×6 (00:55→21:36)
[2018-06-04] MEDS: Heparin - SQ 10,000 UNITS/ML Vial SQ SCH ×3 (05:15→21:37)
[2018-06-04] MEDS: Chlorhexidine 0.12% Oral Kit 15 ML UDC OROPHARYNG SCH ×2 (07:17→21:04)
[2018-06-04 08:03] LABS: Baso # (Auto) 0.1 th/mm3 (0.0-0.2); Baso % (Auto) 0.6 % (0.0-2.0); Eos # (Auto) 0.2 th/mm3 (0.0-0.4); Eos % (Auto) 1.8 % (0.0-4.0); Hematocrit 31.5 % (39.0-51.0); Hemoglobin 10.4 gm/dL (13.0-17.0); Lymph # (Auto) 0.9 th/mm3 (1.0-4.8); Lymph % (Auto) 6.4 % (9.0-44.0); Mean Corpuscular HGB Conc 32.9 % (32.0-36.0); Mean Corpuscular Hemoglobin 36.4 pg (27.0-34.0); Mean Corpuscular Volume 110.6 fL (80.0-100.0); Mean Platelet Volume 9.3 fL (7.0-11.0); Mono # (Auto) 0.6 th/mm3 (0.0-0.9); Mono % (Auto) 4.5 % (0.0-8.0); Neut # (Auto) 11.8 th/mm3 (1.8-7.7); Neut % (Auto) 86.7 % (16.0-70.0); Platelet Count 182 th/mm3 (150-450); Red Blood Count 2.85 mil/mm3 (4.50-5.90); Red Cell Distribution Width 19.9 % (11.6-17.2); White Blood Count 13.6 th/mm3 (4.0-11.0)
[2018-06-04 08:05] LABS: INR 1.1 Ratio; Prothrombin Time 11.3 sec (9.8-11.6)
--- NOTE | 2018-06-04 08:11 | P.PNCA ---
Subjective Interval history: denies chest pain, c/o diffuse rash since Physical Exam Vital signs: Vital Signs 06/03/18 12:00 06/03/18 16:00 06/03/18 20:00 Temperature 97.8 F 98 F 98.7 F Pulse Rate 109 H 92 H 108 H Respiratory Rate 20 20 18 Blood Pressure 101/58 L 101/55 L 95/51 L Pulse Oximetry 95 99 98 06/04/18 00:00 06/04/18 00:57 06/04/18 04:00 Temperature 98.5 F 98.5 F Pulse Rate 113 H 122 H 116 H Respiratory Rate 20 20 Blood Pressure 102/57 L 93/53 L 96/54 L Pulse Oximetry 96 96 06/04/18 05:22 06/04/18 07:00 Temperature Pulse Rate 110 H Respiratory Rate 12 Blood Pressure 104/59 L Pulse Oximetry Intake & Output 06/03/18 06/04/18 06/04/18 18:59 06:59 18:59 Intake Total 950 / 950 240 / 240 Balance 950 / 950 240 / 240 Weight 103.5 kg Intake: Oral 950 / 950 240 / 240 Other: # Voids 1 4 Date of Last Bowel Movement 06/03/18 06/04/18 # Bowel Movements 3 - Urinary Catheter Management Indwelling Urethral Catheter Cath placed during this visit: yes, but has since been removed by the nurse Reason for continuing: Decision to DC catheter Insertion date: 05/28/18 Insertion time: 13:30 Removal date: 05/29/18 Removal time: 16:15 Assessment and Plan - Assessment (1) Thrombocytopenia Code(s): D69.6 - Thrombocytopenia, unspecified Status: Acute (2) Anemia Code(s): D64.9 - Anemia, unspecified Status: Acute (3) Leukemia Code(s): C95.90 - Leukemia, unspecified not having achieved remission Status: Acute (4) NSTEMI (non-ST elevated myocardial infarction) Code(s): I21.4 - Non-ST elevation (NSTEMI) myocardial infarction Status: Acute (5) Tobacco abuse Code(s): Z72.0 - Tobacco use Status: Acute (6) RADHA (acute kidney injury) Code(s): N17.9 - Acute kidney failure, unspecified Status: Acute (7) ETOH abuse Code(s): F10.10 - Alcohol abuse, uncomplicated Status: Acute (8) Rectal pain Code(s): K62.89 - Other specified diseases of anus and rectum Status: Deleted (9) Metabolic acidosis Code(s): E87.2 - Acidosis Status: Acute (10) Diverticulitis Code(s): K57.92 - Diverticulitis of intestine, part unspecified, without perforation or abscess without bleeding Status: Acute (11) Acute renal failure Code(s): N17.9 - Acute kidney failure, unspecified Status: Acute (12) Transaminitis Code(s): R74.0 - Nonspecific elevation of levels of transaminase and lactic acid dehydrogenase [LDH] Status: Acute (13) Alcohol abuse Code(s): F10.10 - Alcohol abuse, uncomplicated Status: Acute - Plan 1.) NSTEMI - suspect trop elevation due to arf which appears to be due to rhabdomyolysis, he is assymptomatic 2.) Afib - 2d echo ef=50%, [id number] score=1, male gender, ac held due to unstable platelet count, hgb and liver functio, continue to f/u trends in lfts, hgb, plt ct; rash started @ time aspirin 81 mg qd started 06/01/18, will dc aspirin and start plavix 75 mg qd; not good candidate for ac with noac or coumadin due to alcohol abuse, liver failure, fall risk and unstable hgb and platelet count 3.) Respiratory failure - ef=50% on echo, assymptomatic 05/27/18, possibly due to volume overload from arf, f/u bnp, retrend trop and cpk; d/w Dr George (11) Acute renal failure Qualifiers: Acute renal failure type: unspecified Qualified Code(s): N17.9 - Acute kidney failure, unspecified
[2018-06-04] MEDS: Senna/Docusate Sodium 8.6/50 MG Tablet PO SCH ×2 (08:32→21:04)
[2018-06-04] MEDS: Polyethylene Glycol 3350 17 GM Packet PO SCH ×2 (08:32→21:04)
[2018-06-04] MEDS: Calcium Acetate 667 MG Capsule PO SCH ×3 (08:33→17:10)
[2018-06-04] MEDS: Hydrocortisone Acetate 25 MG Supp RECTAL SCH ×3 (08:38→17:10)
[2018-06-04 08:39] LABS: Alanine Aminotransferase 397 U/L (12-78); Alkaline Phosphatase 328 U/L (45-117); Anion Gap 12 meq/L (5-15); Aspartate Aminotransferase 220 U/L (15-37); Blood Urea Nitrogen 57 mg/dL (7-18); Calcium 8.6 mg/dL (8.5-10.1); Chloride 92 meq/L (98-107); Glomerular Filtration Rate 6 mL/min (>89); Glucose,Random 111 mg/dL (74-106); Magnesium 1.7 mg/dL (1.5-2.5); Phosphorus 3.9 mg/dL (2.5-4.9); Potassium 4.7 meq/L (3.5-5.1); Sodium 131 meq/L (136-145); Total Protein 6.1 g/dL (6.4-8.2)
[2018-06-04 08:45] LABS: Eosinophils 1 % (0-4); Lymphocytes 2 % (9-44); Metamyelocytes 5 % (0-1); Monocytes 3 % (0-8); Myelocytes 1 % (0-0)
[2018-06-04 08:46] LABS: Dimorphic RBC Present; Platelet Estimate Normal (Normal); Toxic Granulation 1+
[2018-06-04 08:47] LABS: Toxic Vacuolation Present
--- NOTE | 2018-06-04 10:19 | P.PNIM ---
Subjective Interval history: Patient remains oliguric. Less than 10 cc of urine since yesterday. Itchy rash is persisting. Physical Exam Vital signs: Vital Signs 06/03/18 12:00 06/03/18 16:00 06/03/18 20:00 Temperature 97.8 F 98 F 98.7 F Pulse Rate 109 H 92 H 108 H Respiratory Rate 20 20 18 Blood Pressure 101/58 L 101/55 L 95/51 L Pulse Oximetry 95 99 98 06/04/18 00:00 06/04/18 00:57 06/04/18 04:00 Temperature 98.5 F 98.5 F Pulse Rate 113 H 122 H 116 H Respiratory Rate 20 20 Blood Pressure 102/57 L 93/53 L 96/54 L Pulse Oximetry 96 96 06/04/18 05:22 06/04/18 07:00 06/04/18 08:00 Temperature 98.7 F Pulse Rate 110 H 107 H Respiratory Rate 12 16 Blood Pressure 104/59 L 111/58 L Pulse Oximetry 97 Intake & Output 06/03/18 06/04/18 06/04/18 18:59 06:59 18:59 Intake Total 950 / 950 240 / 240 Balance 950 / 950 240 / 240 Weight 103.5 kg Intake: Oral 950 / 950 240 / 240 Other: # Voids 1 4 Date of Last Bowel Movement 06/03/18 06/04/18 # Bowel Movements 3 Narrative: GENERAL: This is a well-nourished, well-developed patient, in no apparent distress. SKIN:erythematous, morbilliform rash noted on the bilateral upper thighs with extension into the groin and suprapubic region. Small area noted in the L axilla. CARDIOVASCULAR: Normal rate and regular rhythm without murmurs, gallops, or rubs. RESPIRATORY: Good respiratory efforts. Breath sounds equal and clear to auscultation bilaterally. GASTROINTESTINAL: Abdomen soft, non-tender, non-distended. Normal active bowel sounds MUSCULOSKELETAL: Extremities without cyanosis, or edema. NEURO: Alert & Oriented x4 to person, place, time, situation. Moves all ext x4 PSYCH: Appropriate mood and affect. - Urinary Catheter Management Indwelling Urethral Catheter Cath placed during this visit: yes, but has since been removed by the nurse Reason for continuing: Decision to DC catheter Insertion date: 05/28/18 Insertion time: 13:30 Removal date: 05/29/18 Removal time: 16:15 Results - Labs CBC & Chem 7: 06/04/18 07:43 06/04/18 07:43 Laboratory Results - last 24 hr 06/01/18 06/03/18 06/03/18 13:44 06:18 11:29 WBC RBC Hgb Hct MCV MCH MCHC RDW Plt Count MPV Prelim Diff (Auto) Neut % (Auto) Lymph % (Auto) [place] % (Auto) Eos % (Auto) Baso % (Auto) Neut # (Auto) Lymph # (Auto) [place] # (Auto) Eos # (Auto) Baso # (Auto) WBC Differential Seg Neuts % (Manual) Band Neuts % (Manual) Lymphocytes % (Manual) Monocytes % (Manual) Eosinophils % (Manual) Metamyelocytes % (Man) Myelocytes % (Man) Abs Neuts (Manual) Differential Comment Toxic Granulation Toxic Vacuolation Platelet Estimate Platelet Morphology Dimorphic RBCs Polychromasia PT INR Sodium Potassium Chloride Carbon Dioxide Anion Gap BUN Creatinine Estimated GFR POC Glucose 161 H Random Glucose Calcium Phosphorus Magnesium Total Bilirubin AST ALT Alkaline Phosphatase Ammonia Total Creatine Kinase 6647 H CK-MB (CK-2) 28.7 H CK-MB (CK-2) % 0.4 Total Protein Albumin Anti-Proteinase 3 Less than 1.0 Anti-Myeloperoxidase Less than 1.0 06/03/18 06/04/18 06/04/18 17:35 00:56 05:18 WBC RBC Hgb Hct MCV MCH MCHC RDW Plt Count MPV Prelim Diff (Auto) Neut % (Auto) Lymph % (Auto) [place] % (Auto) Eos % (Auto) Baso % (Auto) Neut # (Auto) Lymph # (Auto) [place] # (Auto) Eos # (Auto) Baso # (Auto) WBC Differential Seg Neuts % (Manual) Band Neuts % (Manual) Lymphocytes % (Manual) Monocytes % (Manual) Eosinophils % (Manual) Metamyelocytes % (Man) Myelocytes % (Man) Abs Neuts (Manual) Differential Comment Toxic Granulation Toxic Vacuolation Platelet Estimate Platelet Morphology Dimorphic RBCs Polychromasia PT INR Sodium Potassium Chloride Carbon Dioxide Anion Gap BUN Creatinine Estimated GFR POC Glucose 220 H 131 H 112 H Random Glucose Calcium Phosphorus Magnesium Total Bilirubin AST ALT Alkaline Phosphatase Ammonia Total Creatine Kinase CK-MB (CK-2) CK-MB (CK-2) % Total Protein Albumin Anti-Proteinase 3 Anti-Myeloperoxidase 06/04/18 06/04/18 06/04/18 07:43 07:43 07:43 WBC 13.6 H RBC 2.85 L Hgb 10.4 L Hct 31.5 L MCV 110.6 H MCH 36.4 H MCHC 32.9 RDW 19.9 H Plt Count 182 MPV 9.3 Prelim Diff (Auto) Slide review pending Neut % (Auto) 86.7 H Lymph % (Auto) 6.4 L [place] % (Auto) 4.5 Eos % (Auto) 1.8 Baso % (Auto) 0.6 Neut # (Auto) 11.8 H Lymph # (Auto) 0.9 L [place] # (Auto) 0.6 Eos # (Auto) 0.2 Baso # (Auto) 0.1 WBC Differential Manual diff final Seg Neuts % (Manual) 75 H Band Neuts % (Manual) 13 H Lymphocytes % (Manual) 2 L Monocytes % (Manual) 3 Eosinophils % (Manual) 1 Metamyelocytes % (Man) 5 H Myelocytes % (Man) 1 H Abs Neuts (Manual) 12.8 H Differential Comment . Toxic Granulation 1+ H Toxic Vacuolation Present H Platelet Estimate Normal Platelet Morphology Enlarged H Dimorphic RBCs Present H Polychromasia 2.0 H PT 11.3 INR 1.1 Sodium 131 L Potassium 4.7 Chloride 92 L Carbon Dioxide 27.0 Anion Gap 12 BUN 57 H Creatinine 8.91 H Estimated GFR 6 L POC Glucose Random Glucose 111 H Calcium 8.6 Phosphorus 3.9 Magnesium 1.7 Total Bilirubin 2.5 H AST 220 H ALT 397 H Alkaline Phosphatase 328 H Ammonia Total Creatine Kinase CK-MB (CK-2) CK-MB (CK-2) % Total Protein 6.1 L D Albumin 2.0 L Anti-Proteinase 3 Anti-Myeloperoxidase 06/04/18 07:43 WBC RBC Hgb Hct MCV MCH MCHC RDW Plt Count MPV Prelim Diff (Auto) Neut % (Auto) Lymph % (Auto) [place] % (Auto) Eos % (Auto) Baso % (Auto) Neut # (Auto) Lymph # (Auto) [place] # (Auto) Eos # (Auto) Baso # (Auto) WBC Differential Seg Neuts % (Manual) Band Neuts % (Manual) Lymphocytes % (Manual) Monocytes % (Manual) Eosinophils % (Manual) Metamyelocytes % (Man) Myelocytes % (Man) Abs Neuts (Manual) Differential Comment Toxic Granulation Toxic Vacuolation Platelet Estimate Platelet Morphology Dimorphic RBCs Polychromasia PT INR Sodium Potassium Chloride Carbon Dioxide Anion Gap BUN Creatinine Estimated GFR POC Glucose Random Glucose Calcium Phosphorus Magnesium Total Bilirubin AST ALT Alkaline Phosphatase Ammonia Less than 10 L Total Creatine Kinase CK-MB (CK-2) CK-MB (CK-2) % Total Protein Albumin Anti-Proteinase 3 Anti-Myeloperoxidase - Procedures TO HAVE HD CATHETER PLACED TODAY Assessment and Plan - Plan 53-year-old male with acute hypoxic and hypercarbic respiratory failure and acute severe metabolic encephalopathy with associated multiorgan failure including renal failure and liver failure. Patient required intubation and has been in the ICU in acute shock requiring pressors. He has improved and stabilized therefore transferred to the hospitalist service Acute hypoxic and hypercarbic respiratory failure: Status post intubation and extubation. - Doing well on. - Supplemental oxygen as needed. - Breathing treatments as needed. Acute renal failure secondary to rhabdomyolysis. Patient requiring hemodialysis -Ongoing hemodialysis per nephrology. Unclear if he will recover. -Vas-Cath in place. Permacath ordered per nephrology. -Avoid nephrotoxins. - Continue hemodialysis. Dialysis today. Awaiting return of renal functions. Acute liver failure secondary to alcohol: - Follow LFTs. -Continue lactulose Statin induced rhabdomyolysis: -Ongoing hemodialysis as above. -Follow CK levels. Alcohol dependence: - Off CIWA protocol. - No signs of withdrawal currently Acute diverticulitis/rectal pain: -Concerned he might have developed a rash from antibiotics. Discontinued Cipro and Flagyl. Continue to monitor. -Pain medication as needed. Rash: Probable drug reaction: Cipro and Flagyl previously discontinued. Benadryl as needed. Add Zyrtec and Pepcid. Continue to monitor Elevated troponin/atrial fibrillation: -Appreciate cardiology following. Elevation of cardiac enzymes likely secondary to renal failure. Not a candidate for anticoagulation due to bleeding. -Continue metoprolol for better rate control. Discharge Planning: Continue hemodialysis. Awaiting return of renal functions.
[2018-06-04 12:01] LABS: Creatine Kinase MB 23.9 ng/mL (0.5-3.6)
--- NOTE | 2018-06-04 14:41 | P.PNNP ---
Subjective Interval history: patient was seen and examined. Had dialysis today, 4 liters removed. He remains oligoanuric. Physical Exam Vital signs: Vital Signs 06/03/18 16:00 06/03/18 20:00 06/04/18 00:00 Temperature 98 F 98.7 F Pulse Rate 92 H 108 H 113 H Respiratory Rate 20 18 Blood Pressure 101/55 L 95/51 L 102/57 L Pulse Oximetry 99 98 06/04/18 00:57 06/04/18 04:00 06/04/18 05:22 Temperature 98.5 F 98.5 F Pulse Rate 122 H 116 H 110 H Respiratory Rate 20 20 Blood Pressure 93/53 L 96/54 L 104/59 L Pulse Oximetry 96 96 06/04/18 07:00 06/04/18 08:00 06/04/18 12:00 Temperature 98.7 F 98.4 F Pulse Rate 107 H 117 H Respiratory Rate 12 16 20 Blood Pressure 111/58 L 110/57 L Pulse Oximetry 97 96 Intake & Output 06/03/18 06/04/18 06/04/18 18:59 06:59 18:59 Intake Total 950 / 950 240 / 240 Output Total 4000 / 4000 Balance 950 / 950 240 / 240 -4000 / -4000 Weight 103.5 kg Intake: Oral 950 / 950 240 / 240 Output: Hemodialysis Amount 4000 / 4000 Other: # Voids 1 4 Date of Last Bowel Movement 06/03/18 06/04/18 # Bowel Movements 3 Narrative: GENERAL: obese, awake, alert. SKIN:erythematous, morbilliform rash noted on the bilateral upper thighs with extension into the groin and suprapubic region. Small area noted in the L axilla. CARDIOVASCULAR: Normal rate and regular rhythm without murmurs, gallops, or rubs. RESPIRATORY: Good respiratory efforts. Breath sounds equal and clear to auscultation bilaterally. GASTROINTESTINAL: Abdomen soft, non-tender, non-distended. Normal active bowel sounds MUSCULOSKELETAL:3 + edema. - Urinary Catheter Management Indwelling Urethral Catheter Cath placed during this visit: yes, but has since been removed by the nurse Reason for continuing: Decision to DC catheter Insertion date: 05/28/18 Insertion time: 13:30 Removal date: 05/29/18 Removal time: 16:15 Assessment and Plan - Assessment (1) RADHA (acute kidney injury) Code(s): N17.9 - Acute kidney failure, unspecified Status: Acute Plan: He has underlying CKD, baseline creatinine was 1.5-1.6 earlier this year. RADHA is due to rhabdomyolysis. Imaging negative for obstruction. Dialysis initiated on 05/27. Continue to monitor urine output. He has significant proteinuria. Serologies ordered. ATIF negative. Complements normal. ANCA negative. Repeat UA and proteinuria quantification ordered, not available. CPK had improved. Hold home lisinopril, avoid other nephrotoxins. Repeat labs daily. Dialysis tomorrow Very little urine output. Monitor for renal recovery, so far no signs. (2) Rhabdomyolysis due to statin therapy Code(s): M62.82 - Rhabdomyolysis Status: Acute Plan: Did not improve with hydration, now on HD. (3) Metabolic acidosis Code(s): E87.2 - Acidosis Status: Acute Plan: Due to renal failure Improved. (4) ETOH abuse Code(s): F10.10 - Alcohol abuse, uncomplicated Status: Acute Plan: Cessation has been advised. (5) Respiratory failure Code(s): J96.90 - Respiratory failure, unspecified, unspecified whether with hypoxia or hypercapnia Status: Acute Plan: resolved.
--- NOTE | 2018-06-04 16:47 | P.DIET ---
Nutritional Evaluation Screening comments: [facility] [place] received "pt has questions regarding renal diet" Pt was unavailable when visited. Chart reviewed. Will attempt to visit the pt again at a later date to answer diet questions. RD will remain available and continue to try diet instruction.
[2018-06-04] MEDS: Famotidine 20 MG Tablet PO SCH ×2 (21:37→22:05)
[2018-06-05] MEDS: oxyCODONE/Acetaminophen 10/325 Tablet PO PRN ×5 (01:32→20:10)
[2018-06-05] MEDS: Oral Hygiene Kit OROPHARYNG SCH ×5 (01:37→23:47)
[2018-06-05] MEDS: Heparin - SQ 10,000 UNITS/ML Vial SQ SCH ×3 (06:37→22:34)
[2018-06-05] MEDS: Albumin Human 25% Inj 100 ML IV.SIG PRN ×2 (08:12→08:14)
--- NOTE | 2018-06-05 09:43 | P.PNNP ---
Subjective Interval history: Patient seen during HD, complaining for dry mouth. Physical Exam Vital signs: Vital Signs 06/04/18 12:00 06/04/18 16:00 06/04/18 18:35 Temperature 98.4 F 98.0 F Pulse Rate 117 H 115 H Respiratory Rate 20 18 12 Blood Pressure 110/57 L 109/72 Pulse Oximetry 96 98 06/04/18 20:00 06/05/18 00:00 06/05/18 04:00 Temperature 98.8 F 97.7 F 98.2 F Pulse Rate 106 H 73 89 Respiratory Rate 18 18 16 Blood Pressure 95/54 L 100/52 L 102/53 L Pulse Oximetry 96 95 96 06/05/18 06:50 Temperature Pulse Rate 116 H Respiratory Rate Blood Pressure 114/51 L Pulse Oximetry Intake & Output 06/04/18 06/05/18 06/05/18 18:59 06:59 18:59 Intake Total 360 / 360 200 / 200 Output Total 4000 / 4000 Balance -4000 / -4000 360 / 360 200 / 200 Weight 102.4 kg Intake: IV 200 / 200 Flexbumin 25% Inj 100 ML @ 60 200 / 200 mls/hr IV.SIG WITH DIALYSIS PRN Rx#:[id number] Oral 360 / 360 Output: Hemodialysis Amount 4000 / 4000 Other: # Voids 2 Date of Last Bowel Movement 06/04/18 Narrative: GENERAL: This is a well-nourished, well-developed patient, in no apparent distress. SKIN:erythematous, morbilliform rash noted on the bilateral upper thighs with extension into the groin and suprapubic region. Small area noted in the L axilla. CARDIOVASCULAR: Normal rate and regular rhythm without murmurs, gallops, or rubs. RESPIRATORY: Good respiratory efforts. Breath sounds equal and clear to auscultation bilaterally. GASTROINTESTINAL: Abdomen soft, non-tender, non-distended. Normal active bowel sounds MUSCULOSKELETAL: Extremities without cyanosis, or edema. NEURO: Alert & Oriented x4 to person, place, time, situation. Moves all ext x4 PSYCH: Appropriate mood and affect. - Urinary Catheter Management Indwelling Urethral Catheter Cath placed during this visit: yes, but has since been removed by the nurse Reason for continuing: Decision to DC catheter Insertion date: 05/28/18 Insertion time: 13:30 Removal date: 05/29/18 Removal time: 16:15 Assessment and Plan - Assessment (1) RADHA (acute kidney injury) Code(s): N17.9 - Acute kidney failure, unspecified Status: Acute Plan: He has underlying CKD, baseline creatinine was 1.5-1.6 earlier this year. RADHA is due to rhabdomyolysis. Imaging negative for obstruction. Dialysis initiated on 05/27. Continue to monitor urine output. He has significant proteinuria. Serologies ordered. ATIF negative. Complements normal. ANCA negative. Repeat UA and proteinuria quantification ordered, not available. CPK had improved. Hold home lisinopril, avoid other nephrotoxins. Urine out put is minimal. HD now, remove fluid as tolerated. Watch for renal recovery. (2) Rhabdomyolysis due to statin therapy Code(s): M62.82 - Rhabdomyolysis Status: Acute Plan: Did not improve with hydration, now on HD. (3) Metabolic acidosis Code(s): E87.2 - Acidosis Status: Acute Plan: Due to renal failure Improved. (4) ETOH abuse Code(s): F10.10 - Alcohol abuse, uncomplicated Status: Acute Plan: Cessation has been advised. (5) Respiratory failure Code(s): J96.90 - Respiratory failure, unspecified, unspecified whether with hypoxia or hypercapnia Status: Acute Plan: resolved.
[2018-06-05] MEDS: Polyethylene Glycol 3350 17 GM Packet PO SCH ×2 (09:59→20:12)
[2018-06-05] MEDS: Hydrocortisone Acetate 25 MG Supp RECTAL SCH ×3 (09:59→18:12)
[2018-06-05] MEDS: Chlorhexidine 0.12% Oral Kit 15 ML UDC OROPHARYNG SCH ×2 (09:59→20:12)
[2018-06-05] MEDS: Senna/Docusate Sodium 8.6/50 MG Tablet PO SCH ×2 (10:00→20:13)
[2018-06-05] MEDS: Famotidine 20 MG Tablet PO SCH ×2 (10:00→20:14)
[2018-06-05] MEDS: Calcium Acetate 667 MG Capsule PO SCH ×3 (10:00→18:12)
--- NOTE | 2018-06-05 10:27 | P.PNCA ---
Subjective Interval history: alert in nad, denies chest pain Physical Exam Vital signs: Vital Signs 06/04/18 12:00 06/04/18 16:00 06/04/18 18:35 Temperature 98.4 F 98.0 F Pulse Rate 117 H 115 H Respiratory Rate 20 18 12 Blood Pressure 110/57 L 109/72 Pulse Oximetry 96 98 06/04/18 20:00 06/05/18 00:00 06/05/18 04:00 Temperature 98.8 F 97.7 F 98.2 F Pulse Rate 106 H 73 89 Respiratory Rate 18 18 16 Blood Pressure 95/54 L 100/52 L 102/53 L Pulse Oximetry 96 95 96 06/05/18 06:50 Temperature Pulse Rate 116 H Respiratory Rate Blood Pressure 114/51 L Pulse Oximetry Intake & Output 06/04/18 06/05/18 06/05/18 18:59 06:59 18:59 Intake Total 360 / 360 200 / 200 Output Total 4000 / 4000 Balance -4000 / -4000 360 / 360 200 / 200 Weight 102.4 kg Intake: IV 200 / 200 Flexbumin 25% Inj 100 ML @ 60 200 / 200 mls/hr IV.SIG WITH DIALYSIS PRN Rx#:[id number] Oral 360 / 360 Output: Hemodialysis Amount 4000 / 4000 Other: # Voids 2 Date of Last Bowel Movement 06/04/18 - Urinary Catheter Management Indwelling Urethral Catheter Cath placed during this visit: yes, but has since been removed by the nurse Reason for continuing: Decision to DC catheter Insertion date: 05/28/18 Insertion time: 13:30 Removal date: 05/29/18 Removal time: 16:15 Assessment and Plan - Assessment (1) Thrombocytopenia Code(s): D69.6 - Thrombocytopenia, unspecified Status: Acute (2) Anemia Code(s): D64.9 - Anemia, unspecified Status: Acute (3) Leukemia Code(s): C95.90 - Leukemia, unspecified not having achieved remission Status: Acute (4) NSTEMI (non-ST elevated myocardial infarction) Code(s): I21.4 - Non-ST elevation (NSTEMI) myocardial infarction Status: Acute (5) Tobacco abuse Code(s): Z72.0 - Tobacco use Status: Acute (6) RADHA (acute kidney injury) Code(s): N17.9 - Acute kidney failure, unspecified Status: Acute (7) ETOH abuse Code(s): F10.10 - Alcohol abuse, uncomplicated Status: Acute (8) Rectal pain Code(s): K62.89 - Other specified diseases of anus and rectum Status: Deleted (9) Metabolic acidosis Code(s): E87.2 - Acidosis Status: Acute (10) Diverticulitis Code(s): K57.92 - Diverticulitis of intestine, part unspecified, without perforation or abscess without bleeding Status: Acute (11) Acute renal failure Code(s): N17.9 - Acute kidney failure, unspecified Status: Acute (12) Transaminitis Code(s): R74.0 - Nonspecific elevation of levels of transaminase and lactic acid dehydrogenase [LDH] Status: Acute (13) Alcohol abuse Code(s): F10.10 - Alcohol abuse, uncomplicated Status: Acute - Plan 1.) NSTEMI - suspect trop elevation due to arf which appears to be due to rhabdomyolysis, he is assymptomatic 2.) Afib - 2d echo ef=50%, [id number] score=1, male gender, ac held due to unstable platelet count, hgb and liver function, continue to f/u trends in lfts , hgb, plt ct; rash started @ time aspirin 81 mg qd started 06/01/18, will dc aspirin and start plavix 75 mg qd, 06/05/18, no improvement in rash, i explained to patient that if due to aspirin may take several days for plasma levels of aspirin to decrease and to see improvement if rash is due to aspirin, ; not good candidate for ac with noac or coumadin due to alcohol abuse, liver failure , fall risk and unstable hgb and platelet count 3.) Respiratory failure - ef=50% on echo, assymptomatic 05/27/18, possibly due to volume overload from arf, f/u bnp, retrend trop and cpk; d/w Dr George (11) Acute renal failure Qualifiers: Acute renal failure type: unspecified Qualified Code(s): N17.9 - Acute kidney failure, unspecified
--- NOTE | 2018-06-05 13:21 | P.PNIM ---
Subjective Interval history: Rashes slightly better today. Minimal urine. Physical Exam Vital signs: Vital Signs 06/04/18 16:00 06/04/18 18:35 06/04/18 20:00 Temperature 98.0 F 98.8 F Pulse Rate 115 H 106 H Respiratory Rate 18 12 18 Blood Pressure 109/72 95/54 L Pulse Oximetry 98 96 06/05/18 00:00 06/05/18 04:00 06/05/18 06:50 Temperature 97.7 F 98.2 F Pulse Rate 73 89 116 H Respiratory Rate 18 16 Blood Pressure 100/52 L 102/53 L 114/51 L Pulse Oximetry 95 96 06/05/18 12:00 Temperature 98.0 F Pulse Rate 114 H Respiratory Rate 16 Blood Pressure 105/63 Pulse Oximetry 94 L Intake & Output 06/04/18 06/05/18 06/05/18 18:59 06:59 18:59 Intake Total 360 / 360 200 / 200 Output Total 4000 / 4000 Balance -4000 / -4000 360 / 360 200 / 200 Weight 102.4 kg Intake: IV 200 / 200 Flexbumin 25% Inj 100 ML @ 60 200 / 200 mls/hr IV.SIG WITH DIALYSIS PRN Rx#:[id number] Oral 360 / 360 Output: Hemodialysis Amount 4000 / 4000 Other: # Voids 2 Date of Last Bowel Movement 06/04/18 - Urinary Catheter Management Indwelling Urethral Catheter Cath placed during this visit: yes, but has since been removed by the nurse Reason for continuing: Decision to DC catheter Insertion date: 05/28/18 Insertion time: 13:30 Removal date: 05/29/18 Removal time: 16:15 Results - Labs CBC & Chem 7: 06/04/18 07:43 06/05/18 12:40 Laboratory Results - last 24 hr 05/30/18 06/04/18 06/05/18 05:14 17:05 01:35 Puncture Site Right radial Patient Temperature 98.6 O2 Saturation 95 ABG pH 7.32 L ABG pCO2 43 H ABG pO2 107 ABG HCO3 22 ABG O2 Content 13.3 ABG Base Excess -3.6 L ABG Methemoglobin 1.4 Sha Test Present Hemoglobin 9.8 L Carboxyhemoglobin 1.7 O2 Delivery Device Nasal cannula Liter Flow 3.00 Inspired O2 21 Critical Value No POC Glucose 164 H 144 H 06/05/18 06:48 Puncture Site Patient Temperature O2 Saturation ABG pH ABG pCO2 ABG pO2 ABG HCO3 ABG O2 Content ABG Base Excess ABG Methemoglobin Sha Test Hemoglobin Carboxyhemoglobin O2 Delivery Device Liter Flow Inspired O2 Critical Value POC Glucose 107 - Procedures TO HAVE HD CATHETER PLACED TODAY Assessment and Plan - Plan 53-year-old male with acute hypoxic and hypercarbic respiratory failure and acute severe metabolic encephalopathy with associated multiorgan failure including renal failure and liver failure. Patient required intubation and has been in the ICU in acute shock requiring pressors. He has improved and stabilized therefore transferred to the hospitalist service Acute hypoxic and hypercarbic respiratory failure: Status post intubation and extubation. - Doing well on. - Supplemental oxygen as needed. - Breathing treatments as needed. Acute renal failure secondary to rhabdomyolysis. Patient requiring hemodialysis -Ongoing hemodialysis per nephrology. Unclear if he will recover. -Vas-Cath in place. Permacath ordered per nephrology. -Avoid nephrotoxins. - Continue hemodialysis per nephrology. Awaiting return of renal functions. Acute liver failure secondary to alcohol: - Follow LFTs. -Continue lactulose Statin induced rhabdomyolysis: -Ongoing hemodialysis as above. -Follow CK levels. Alcohol dependence: - Off CIWA protocol. - No signs of withdrawal currently Acute diverticulitis/rectal pain: -Concerned he might have developed a rash from antibiotics. Discontinued Cipro and Flagyl. Continue to monitor. -Pain medication as needed. Rash: Probable drug reaction: Cipro and Flagyl previously discontinued. Benadryl as needed. Continue Zyrtec and Pepcid. Continue to monitor Elevated troponin/atrial fibrillation: -Appreciate cardiology following. Elevation of cardiac enzymes likely secondary to renal failure. Not a candidate for anticoagulation due to bleeding. -Continue metoprolol for better rate control. Discharge Planning: Continue hemodialysis. Awaiting return of renal functions.
[2018-06-05 13:35] LABS: Calcium 8.7 mg/dL (8.5-10.1); Carbon Dioxide 30.6 meq/L (21.0-32.0); Potassium 3.6 meq/L (3.5-5.1)
[2018-06-05 13:55] LABS: CKMB Percent 2.5 % (0.0-4.0)
[2018-06-06] MEDS: oxyCODONE/Acetaminophen 10/325 Tablet PO PRN ×6 (00:29→21:02)
[2018-06-06] MEDS: Oral Hygiene Kit OROPHARYNG SCH ×4 (04:10→23:34)
[2018-06-06] MEDS: Heparin - SQ 10,000 UNITS/ML Vial SQ SCH ×3 (05:00→21:01)
[2018-06-06] MEDS: Chlorhexidine 0.12% Oral Kit 15 ML UDC OROPHARYNG SCH ×2 (07:58→20:59)
[2018-06-06] MEDS: Polyethylene Glycol 3350 17 GM Packet PO SCH ×2 (08:14→21:00)
[2018-06-06] MEDS: Hydrocortisone Acetate 25 MG Supp RECTAL SCH ×3 (08:14→17:07)
[2018-06-06] MEDS: Calcium Acetate 667 MG Capsule PO SCH ×3 (08:15→17:07)
[2018-06-06] MEDS: Senna/Docusate Sodium 8.6/50 MG Tablet PO SCH ×2 (08:16→21:01)
[2018-06-06] MEDS: Famotidine 20 MG Tablet PO SCH ×2 (08:17→21:00)
--- NOTE | 2018-06-06 10:28 | P.PNCA ---
Subjective Interval history: alert in nad, denies chest pain Physical Exam Vital signs: Vital Signs 06/05/18 12:00 06/05/18 16:00 06/05/18 16:22 Temperature 98.0 F 98.0 F Pulse Rate 114 H 95 H Respiratory Rate 16 14 16 Blood Pressure 105/63 106/56 L Pulse Oximetry 94 L 94 L 06/05/18 20:00 06/06/18 00:00 06/06/18 04:00 Temperature 98.4 F 98.0 F 98.4 F Pulse Rate 92 H 95 H 99 H Respiratory Rate 18 18 18 Blood Pressure 102/53 L 94/53 L 98/56 L Pulse Oximetry 99 99 96 06/06/18 05:00 06/06/18 07:00 06/06/18 08:00 Temperature 98 F Pulse Rate 120 H Respiratory Rate 18 12 18 Blood Pressure 96/54 L Pulse Oximetry 92 L Intake & Output 06/05/18 06/06/18 06/06/18 18:59 06:59 18:59 Intake Total 200 / 200 Balance 200 / 200 Weight 102.4 kg Intake: IV 200 / 200 Flexbumin 25% Inj 100 ML @ 60 200 / 200 mls/hr IV.SIG WITH DIALYSIS PRN Rx#:[id number] Other: # Voids 3 Date of Last Bowel Movement 06/05/18 - Urinary Catheter Management Indwelling Urethral Catheter Cath placed during this visit: yes, but has since been removed by the nurse Reason for continuing: Decision to DC catheter Insertion date: 05/28/18 Insertion time: 13:30 Removal date: 05/29/18 Removal time: 16:15 Assessment and Plan - Assessment (1) Thrombocytopenia Code(s): D69.6 - Thrombocytopenia, unspecified Status: Acute (2) Anemia Code(s): D64.9 - Anemia, unspecified Status: Acute (3) Leukemia Code(s): C95.90 - Leukemia, unspecified not having achieved remission Status: Acute (4) NSTEMI (non-ST elevated myocardial infarction) Code(s): I21.4 - Non-ST elevation (NSTEMI) myocardial infarction Status: Acute (5) Tobacco abuse Code(s): Z72.0 - Tobacco use Status: Acute (6) RADHA (acute kidney injury) Code(s): N17.9 - Acute kidney failure, unspecified Status: Acute (7) ETOH abuse Code(s): F10.10 - Alcohol abuse, uncomplicated Status: Acute (8) Rectal pain Code(s): K62.89 - Other specified diseases of anus and rectum Status: Deleted (9) Metabolic acidosis Code(s): E87.2 - Acidosis Status: Acute (10) Diverticulitis Code(s): K57.92 - Diverticulitis of intestine, part unspecified, without perforation or abscess without bleeding Status: Acute (11) Acute renal failure Code(s): N17.9 - Acute kidney failure, unspecified Status: Acute (12) Transaminitis Code(s): R74.0 - Nonspecific elevation of levels of transaminase and lactic acid dehydrogenase [LDH] Status: Acute (13) Alcohol abuse Code(s): F10.10 - Alcohol abuse, uncomplicated Status: Acute - Plan 1.) NSTEMI - suspect trop elevation due to arf which appears to be due to rhabdomyolysis, he is assymptomatic 2.) Afib - 2d echo ef=50%, [id number] score=1, male gender, ac held due to unstable platelet count, hgb and liver function, continue to f/u trends in lfts , hgb, plt ct; rash started @ time aspirin 81 mg qd started 06/01/18, will dc aspirin and start plavix 75 mg qd, 06/05/18, no improvement in rash, i explained to patient that if due to aspirin may take several days for plasma levels of aspirin to decrease and to see improvement if rash is due to aspirin, ; not good candidate for ac with noac or coumadin due to alcohol abuse, liver failure , fall risk and unstable hgb and platelet count 3.) Respiratory failure - ef=50% on echo, assymptomatic 05/27/18, possibly due to volume overload from arf, f/u bnp, retrend trop and cpk; d/w Dr George 4.) Rash - unimproved 48 hours off aspirin (11) Acute renal failure Qualifiers: Acute renal failure type: unspecified Qualified Code(s): N17.9 - Acute kidney failure, unspecified
--- NOTE | 2018-06-06 11:18 | P.PNIM ---
Subjective Interval history: Patient reports is feeling okay. He is having some dark urine. Still minimal but more than yesterday. Physical Exam Vital signs: Vital Signs 06/05/18 12:00 06/05/18 16:00 06/05/18 16:22 Temperature 98.0 F 98.0 F Pulse Rate 114 H 95 H Respiratory Rate 16 14 16 Blood Pressure 105/63 106/56 L Pulse Oximetry 94 L 94 L 06/05/18 20:00 06/06/18 00:00 06/06/18 04:00 Temperature 98.4 F 98.0 F 98.4 F Pulse Rate 92 H 95 H 99 H Respiratory Rate 18 18 18 Blood Pressure 102/53 L 94/53 L 98/56 L Pulse Oximetry 99 99 96 06/06/18 05:00 06/06/18 07:00 06/06/18 08:00 Temperature 98 F Pulse Rate 120 H Respiratory Rate 18 12 18 Blood Pressure 96/54 L Pulse Oximetry 92 L Intake & Output 06/05/18 06/06/18 06/06/18 18:59 06:59 18:59 Intake Total 200 / 200 Balance 200 / 200 Weight 102.4 kg Intake: IV 200 / 200 Flexbumin 25% Inj 100 ML @ 60 200 / 200 mls/hr IV.SIG WITH DIALYSIS PRN Rx#:[id number] Other: # Voids 3 Date of Last Bowel Movement 06/05/18 Narrative: GENERAL: This is a well-nourished, well-developed patient, in no apparent distress. SKIN:erythematous, morbilliform rash noted on the bilateral upper thighs with extension into the groin and suprapubic region. Small area noted in the L axilla. CARDIOVASCULAR: Normal rate and regular rhythm without murmurs, gallops, or rubs. RESPIRATORY: Good respiratory efforts. Breath sounds equal and clear to auscultation bilaterally. GASTROINTESTINAL: Abdomen soft, non-tender, non-distended. Normal active bowel sounds MUSCULOSKELETAL: Extremities without cyanosis, or edema. NEURO: Alert & Oriented x4 to person, place, time, situation. Moves all ext x4 PSYCH: Appropriate mood and affect. - Urinary Catheter Management Indwelling Urethral Catheter Cath placed during this visit: yes, but has since been removed by the nurse Reason for continuing: Decision to DC catheter Insertion date: 05/28/18 Insertion time: 13:30 Removal date: 05/29/18 Removal time: 16:15 Results - Labs CBC & Chem 7: 06/04/18 07:43 06/06/18 10:50 Laboratory Results - last 24 hr 06/05/18 06/05/18 06/05/18 12:40 17:12 20:18 Sodium 137 Potassium 3.6 D Chloride 97 L Carbon Dioxide 30.6 Anion Gap 9 BUN 23 H Creatinine 4.88 H Estimated GFR 13 L POC Glucose 168 H 179 H Random Glucose 159 H Calcium 8.7 Total Creatine Kinase 883 H CK-MB (CK-2) 22.0 H CK-MB (CK-2) % 2.5 06/06/18 04:25 Sodium Potassium Chloride Carbon Dioxide Anion Gap BUN Creatinine Estimated GFR POC Glucose 152 H Random Glucose Calcium Total Creatine Kinase CK-MB (CK-2) CK-MB (CK-2) % - Procedures TO HAVE HD CATHETER PLACED TODAY Assessment and Plan - Plan 53-year-old male with acute hypoxic and hypercarbic respiratory failure and acute severe metabolic encephalopathy with associated multiorgan failure including renal failure and liver failure. Patient required intubation and has been in the ICU in acute shock requiring pressors. He has improved and stabilized therefore transferred to the hospitalist service Acute hypoxic and hypercarbic respiratory failure: Status post intubation and extubation. - Doing well on. - Supplemental oxygen as needed. - Breathing treatments as needed. Acute renal failure secondary to rhabdomyolysis. Patient requiring hemodialysis -Ongoing hemodialysis per nephrology. Hopefully he will recover. -Status post permacath placement. -Avoid nephrotoxins. -Continue hemodialysis per nephrology. Awaiting return of renal functions. Acute liver failure secondary to alcohol: - Follow LFTs. -Continue lactulose Statin induced rhabdomyolysis: -Ongoing hemodialysis as above. -Follow CK levels. Alcohol dependence: - Off CIWA protocol. - No signs of withdrawal currently Acute diverticulitis/rectal pain: -Concerned he might have developed a rash from antibiotics. Discontinued Cipro and Flagyl. Continue to monitor. -Pain medication as needed. Rash: Probable drug reaction: Cipro and Flagyl previously discontinued. Benadryl as needed. Continue Zyrtec and Pepcid. Continue to monitor Elevated troponin/atrial fibrillation: -Appreciate cardiology following. Elevation of cardiac enzymes likely secondary to renal failure. Not a candidate for anticoagulation due to bleeding. -Continue metoprolol for better rate control. Discharge Planning: Continue hemodialysis. Awaiting return of renal functions.
[2018-06-06 12:00] LABS: Calcium 9.4 mg/dL (8.5-10.1); Carbon Dioxide 29.2 meq/L (21.0-32.0); Potassium 3.7 meq/L (3.5-5.1)
--- NOTE | 2018-06-06 17:48 | P.PNNP ---
Subjective Interval history: Patient seen in the afternoon, clinically same, not in distress. Physical Exam Vital signs: Vital Signs 06/05/18 20:00 06/06/18 00:00 06/06/18 04:00 Temperature 98.4 F 98.0 F 98.4 F Pulse Rate 92 H 95 H 99 H Respiratory Rate 18 18 18 Blood Pressure 102/53 L 94/53 L 98/56 L Pulse Oximetry 99 99 96 06/06/18 05:00 06/06/18 07:00 06/06/18 08:00 Temperature 98 F Pulse Rate 120 H Respiratory Rate 18 12 18 Blood Pressure 96/54 L Pulse Oximetry 92 L 06/06/18 11:21 06/06/18 12:00 06/06/18 16:00 Temperature 98.1 F 97.9 F Pulse Rate 92 H 103 H Respiratory Rate 12 18 18 Blood Pressure 145/69 H 146/65 H Pulse Oximetry 95 95 Intake & Output 06/05/18 06/06/18 06/06/18 18:59 06:59 18:59 Intake Total 200 / 200 1120 / 1120 Balance 200 / 200 1120 / 1120 Weight 102.4 kg Intake: IV 200 / 200 Flexbumin 25% Inj 100 ML @ 60 200 / 200 mls/hr IV.SIG WITH DIALYSIS PRN Rx#:[id number] Oral 1120 / 1120 Other: # Voids 3 Date of Last Bowel Movement 06/05/18 # Bowel Movements 3 Narrative: GENERAL: This is a well-nourished, well-developed patient, in no apparent distress. SKIN:erythematous, morbilliform rash noted on the bilateral upper thighs with extension into the groin and suprapubic region. Small area noted in the L axilla. CARDIOVASCULAR: Normal rate and regular rhythm without murmurs, gallops, or rubs. RESPIRATORY: Good respiratory efforts. Breath sounds equal and clear to auscultation bilaterally. GASTROINTESTINAL: Abdomen soft, non-tender, non-distended. Normal active bowel sounds MUSCULOSKELETAL: Extremities without cyanosis, or edema. NEURO: Alert & Oriented x4 to person, place, time, situation. Moves all ext x4 PSYCH: Appropriate mood and affect. - Urinary Catheter Management Indwelling Urethral Catheter Cath placed during this visit: yes, but has since been removed by the nurse Reason for continuing: Decision to DC catheter Insertion date: 05/28/18 Insertion time: 13:30 Removal date: 05/29/18 Removal time: 16:15 Assessment and Plan - Assessment (1) RADHA (acute kidney injury) Code(s): N17.9 - Acute kidney failure, unspecified Status: Acute Plan: He has underlying CKD, baseline creatinine was 1.5-1.6 earlier this year. RADHA is due to rhabdomyolysis. Imaging negative for obstruction. Dialysis initiated on 05/27. Continue to monitor urine output. He has significant proteinuria. Serologies ordered. ATIF negative. Complements normal. ANCA negative. Repeat UA and proteinuria quantification ordered, not available. CPK had improved. Hold home lisinopril, avoid other nephrotoxins. Urine out put is minimal. HD done yesterday. Watch for renal recovery. Urine out put is low. Dr. Velazquez will follow from AM. (2) Rhabdomyolysis due to statin therapy Code(s): M62.82 - Rhabdomyolysis Status: Acute Plan: Did not improve with hydration, now on HD. (3) Metabolic acidosis Code(s): E87.2 - Acidosis Status: Acute Plan: Due to renal failure Improved. (4) ETOH abuse Code(s): F10.10 - Alcohol abuse, uncomplicated Status: Acute Plan: Cessation has been advised. (5) Respiratory failure Code(s): J96.90 - Respiratory failure, unspecified, unspecified whether with hypoxia or hypercapnia Status: Acute Plan: resolved.
[2018-06-07] MEDS: oxyCODONE/Acetaminophen 10/325 Tablet PO PRN ×5 (00:53→21:15)
[2018-06-07] MEDS: Oral Hygiene Kit OROPHARYNG SCH ×4 (04:55→23:29)
[2018-06-07] MEDS: Heparin - SQ 10,000 UNITS/ML Vial SQ SCH ×3 (05:02→21:14)
[2018-06-07] MEDS: Heparin 10,000 UNITS/10 ML Vial (for IV use) OTHER PRN (11:02)
--- NOTE | 2018-06-07 12:09 | P.PNCA ---
Subjective Interval history: denies chest pain Physical Exam Vital signs: Vital Signs 06/06/18 16:00 06/06/18 20:00 06/07/18 00:00 Temperature 97.9 F 98.0 F 97.8 F Pulse Rate 103 H 90 100 H Respiratory Rate 18 18 Blood Pressure 146/65 H 148/59 H 121/58 L Pulse Oximetry 95 98 96 06/07/18 02:40 06/07/18 04:00 06/07/18 08:00 Temperature 97.9 F 97.2 F L Pulse Rate 98 H 103 H Respiratory Rate 18 17 Blood Pressure 109/52 L 140/60 Pulse Oximetry 97 98 Intake & Output 06/06/18 06/07/18 06/07/18 18:59 06:59 18:59 Intake Total 1120 / 1120 Output Total 3000 / 3000 Balance 1120 / 1120 -3000 / -3000 Weight 103.2 kg Intake: Oral 1120 / 1120 Output: Hemodialysis Amount 3000 / 3000 Other: # Voids 3 Date of Last Bowel Movement 06/06/18 06/06/18 # Bowel Movements 3 - Urinary Catheter Management Indwelling Urethral Catheter Cath placed during this visit: yes, but has since been removed by the nurse Reason for continuing: Decision to DC catheter Insertion date: 05/28/18 Insertion time: 13:30 Removal date: 05/29/18 Removal time: 16:15 Assessment and Plan - Assessment (1) Thrombocytopenia Code(s): D69.6 - Thrombocytopenia, unspecified Status: Acute (2) Anemia Code(s): D64.9 - Anemia, unspecified Status: Acute (3) Leukemia Code(s): C95.90 - Leukemia, unspecified not having achieved remission Status: Acute (4) NSTEMI (non-ST elevated myocardial infarction) Code(s): I21.4 - Non-ST elevation (NSTEMI) myocardial infarction Status: Acute (5) Tobacco abuse Code(s): Z72.0 - Tobacco use Status: Acute (6) RADHA (acute kidney injury) Code(s): N17.9 - Acute kidney failure, unspecified Status: Acute (7) ETOH abuse Code(s): F10.10 - Alcohol abuse, uncomplicated Status: Acute (8) Rectal pain Code(s): K62.89 - Other specified diseases of anus and rectum Status: Deleted (9) Metabolic acidosis Code(s): E87.2 - Acidosis Status: Acute (10) Diverticulitis Code(s): K57.92 - Diverticulitis of intestine, part unspecified, without perforation or abscess without bleeding Status: Acute (11) Acute renal failure Code(s): N17.9 - Acute kidney failure, unspecified Status: Acute (12) Transaminitis Code(s): R74.0 - Nonspecific elevation of levels of transaminase and lactic acid dehydrogenase [LDH] Status: Acute (13) Alcohol abuse Code(s): F10.10 - Alcohol abuse, uncomplicated Status: Acute - Plan 1.) NSTEMI - suspect trop elevation due to arf which appears to be due to rhabdomyolysis, he is assymptomatic 2.) Afib - 2d echo ef=50%, [id number] score=1, male gender, ac held due to unstable platelet count, hgb and liver function, continue to f/u trends in lfts , hgb, plt ct; rash started @ time aspirin 81 mg qd started 06/01/18, will dc aspirin and start plavix 75 mg qd, 06/05/18, no improvement in rash, i explained to patient that if due to aspirin may take several days for plasma levels of aspirin to decrease and to see improvement if rash is due to aspirin, ; not good candidate for ac with noac or coumadin due to alcohol abuse, liver failure , fall risk and unstable hgb and platelet count 3.) Respiratory failure - ef=50% on echo, assymptomatic 05/27/18, possibly due to volume overload from arf, f/u bnp, retrend trop and cpk; d/w Dr George 4.) Rash - unimproved 72 hours off aspirin (11) Acute renal failure Qualifiers: Acute renal failure type: unspecified Qualified Code(s): N17.9 - Acute kidney failure, unspecified
--- NOTE | 2018-06-07 12:15 | P.PNNP ---
Subjective Interval history: patient complains of itching. Skin rash persists, but could be improving. He thinks that his urine output has improved. Physical Exam Vital signs: Vital Signs 06/06/18 16:00 06/06/18 20:00 06/07/18 00:00 Temperature 97.9 F 98.0 F 97.8 F Pulse Rate 103 H 90 100 H Respiratory Rate 18 18 Blood Pressure 146/65 H 148/59 H 121/58 L Pulse Oximetry 95 98 96 06/07/18 02:40 06/07/18 04:00 06/07/18 08:00 Temperature 97.9 F 97.2 F L Pulse Rate 98 H 103 H Respiratory Rate 18 17 Blood Pressure 109/52 L 140/60 Pulse Oximetry 97 98 Intake & Output 06/06/18 06/07/18 06/07/18 18:59 06:59 18:59 Intake Total 1120 / 1120 Output Total 3000 / 3000 Balance 1120 / 1120 -3000 / -3000 Weight 103.2 kg Intake: Oral 1120 / 1120 Output: Hemodialysis Amount 3000 / 3000 Other: # Voids 3 Date of Last Bowel Movement 06/06/18 06/06/18 # Bowel Movements 3 Narrative: GENERAL: This is a well-nourished, well-developed patient, in no apparent distress. SKIN:erythematous, morbilliform rash noted on the bilateral upper thighs with extension into the groin and suprapubic region. Small area noted in the L axilla. CARDIOVASCULAR: Normal rate and regular rhythm without murmurs, gallops, or rubs. RESPIRATORY: Good respiratory efforts. Breath sounds equal and clear to auscultation bilaterally. GASTROINTESTINAL: Abdomen soft, non-tender, non-distended. Normal active bowel sounds MUSCULOSKELETAL: Extremities without cyanosis, or edema. NEURO: Alert & Oriented x4 to person, place, time, situation. Moves all ext x4 - Urinary Catheter Management Indwelling Urethral Catheter Cath placed during this visit: yes, but has since been removed by the nurse Reason for continuing: Decision to DC catheter Insertion date: 05/28/18 Insertion time: 13:30 Removal date: 05/29/18 Removal time: 16:15 Assessment and Plan - Assessment (1) RADHA (acute kidney injury) Code(s): N17.9 - Acute kidney failure, unspecified Status: Acute Plan: He has underlying CKD, baseline creatinine was 1.5-1.6 earlier this year. RADHA is due to rhabdomyolysis. Dialysis today: on 3K, UF goal is 3 liters. Imaging negative for obstruction. Dialysis initiated on 05/27. Continue to monitor urine output. He has significant proteinuria. Serologies ordered. ATIF negative. Complements normal. ANCA negative. Repeat UA and proteinuria quantification ordered, not available. CPK had improved. Hold home lisinopril, avoid other nephrotoxins. Urine out put is minimal. Watch for renal recovery. (2) Metabolic acidosis Code(s): E87.2 - Acidosis Status: Acute Plan: Due to renal failure Improved. (3) ETOH abuse Code(s): F10.10 - Alcohol abuse, uncomplicated Status: Acute Plan: Cessation has been advised. (4) Respiratory failure Code(s): J96.90 - Respiratory failure, unspecified, unspecified whether with hypoxia or hypercapnia Status: Acute Plan: resolved.
[2018-06-07] MEDS: Hydrocortisone Acetate 25 MG Supp RECTAL SCH ×3 (13:23→17:26)
[2018-06-07] MEDS: Chlorhexidine 0.12% Oral Kit 15 ML UDC OROPHARYNG SCH ×2 (13:23→19:03)
[2018-06-07] MEDS: Polyethylene Glycol 3350 17 GM Packet PO SCH ×2 (13:25→21:15)
[2018-06-07] MEDS: Calcium Acetate 667 MG Capsule PO SCH ×3 (13:26→17:26)
[2018-06-07] MEDS: Famotidine 20 MG Tablet PO SCH ×2 (13:27→21:15)
[2018-06-07] MEDS: Senna/Docusate Sodium 8.6/50 MG Tablet PO SCH ×2 (13:28→21:15)
--- NOTE | 2018-06-07 14:17 | P.PNIM ---
Subjective Interval history: PATIENT HAD HD TODAY NO NEW ISSUES MAKING SOME URINE AWAIT KIDNEY FUNCTION RETURN Physical Exam Vital signs: Vital Signs 06/06/18 16:00 06/06/18 20:00 06/07/18 00:00 Temperature 97.9 F 98.0 F 97.8 F Pulse Rate 103 H 90 100 H Respiratory Rate 18 18 18 Blood Pressure 146/65 H 148/59 H 121/58 L Pulse Oximetry 95 98 96 06/07/18 02:40 06/07/18 04:00 06/07/18 08:00 Temperature 97.9 F 97.2 F L Pulse Rate 98 H 103 H Respiratory Rate 18 18 17 Blood Pressure 109/52 L 140/60 Pulse Oximetry 97 98 Intake & Output 06/06/18 06/07/18 06/07/18 18:59 06:59 18:59 Intake Total 1120 / 1120 Output Total 6000 / 6000 Balance 1120 / 1120 -6000 / -6000 Weight 103.2 kg Intake: Oral 1120 / 1120 Output: Hemodialysis Amount 6000 / 6000 Other: # Voids 3 Date of Last Bowel Movement 06/06/18 06/06/18 # Bowel Movements 3 Narrative: GENERAL: This is a well-nourished, well-developed patient, in no apparent distress. SKIN:erythematous, morbilliform rash noted on the bilateral upper thighs with extension into the groin and suprapubic region. Small area noted in the L axilla. CARDIOVASCULAR: Normal rate and regular rhythm without murmurs, gallops, or rubs. RIGHT CHEST HD ACCESS RESPIRATORY: Good respiratory efforts. Breath sounds equal and clear to auscultation bilaterally. GASTROINTESTINAL: Abdomen soft, non-tender, non-distended. Normal active bowel sounds MUSCULOSKELETAL: Extremities without cyanosis, or edema. NEURO: Alert & Oriented x4 to person, place, time, situation. Moves all ext x4 - Urinary Catheter Management Indwelling Urethral Catheter Cath placed during this visit: yes, but has since been removed by the nurse Reason for continuing: Decision to DC catheter Insertion date: 05/28/18 Insertion time: 13:30 Removal date: 05/29/18 Removal time: 16:15 Results - Labs CBC & Chem 7: 06/04/18 07:43 06/06/18 10:50 Laboratory Results - last 24 hr 06/06/18 06/06/18 06/07/18 16:37 23:31 05:04 POC Glucose 143 H 121 H 104 06/07/18 11:02 POC Glucose 109 - Imaging Abdomen/Bladder Ultrasound 05/26/18 00:00 CONCLUSION: 1. Small nonobstructing right renal stone. Otherwise, unremarkable exam. Chest X-Ray 05/26/18 08:55 CONCLUSION: No acute cardiopulmonary disease. Abdomen/Pelvis CT 05/26/18 10:54 CONCLUSION: 1. Sigmoid diverticulitis. 2. Hepatic steatosis. 3. Right renal calculus. Catheter Placement 05/27/18 00:00 CONCLUSION: 1. Uncomplicated line placement as above. Head CT 05/28/18 05:02 CONCLUSION: 1. No acute findings in the brain. . Chest X-Ray 05/28/18 06:09 CONCLUSION: 1. Right central line in good position. No evidence of pneumothorax. 2. Intubation of the right main bronchus with interval development of infiltrates/volume loss in the left perihilar and left lung base. The ET tube needs to be withdrawn at least 2.5 cm. Chest X-Ray 05/28/18 11:51 CONCLUSION: Uncomplicated line placement. No evidence of pneumothorax. Chest X-Ray 05/29/18 05:00 CONCLUSION: Increasing consolidation in the left lower lung. Central Venous Line 06/02/18 00:00 CONCLUSION: 1. Uncomplicated PermaCath placement as above. - Procedures HD CATHETER AND INTUBATION AND EXTUBATION AND MECHANICAL VENTILATION AND HD MULTIPLE TIMES Assessment and Plan - Plan 53-year-old male with acute hypoxic and hypercarbic respiratory failure and acute severe metabolic encephalopathy with associated multiorgan failure including renal failure and liver failure. Patient required intubation and has been in the ICU in acute shock requiring pressors. He has improved and stabilized therefore transferred to the hospitalist service Acute hypoxic and hypercarbic respiratory failure: Status post intubation and extubation. - Doing well on. - Supplemental oxygen as needed. - Breathing treatments as needed. Acute renal failure secondary to rhabdomyolysis. Patient requiring hemodialysis -Ongoing hemodialysis per nephrology. Hopefully he will recover. -Status post permacath placement. -Avoid nephrotoxins. -Continue hemodialysis per nephrology. Awaiting return of renal functions. Acute liver failure secondary to alcohol: - Follow LFTs. -Continue lactulose Statin induced rhabdomyolysis: -Ongoing hemodialysis as above. -Follow CK levels. Alcohol dependence: - Off CIWA protocol. - No signs of withdrawal currently Acute diverticulitis/rectal pain: -Concerned he might have developed a rash from antibiotics. Discontinued Cipro and Flagyl. Continue to monitor. -Pain medication as needed. Rash: Probable drug reaction: Cipro and Flagyl previously discontinued. Benadryl as needed. Continue Zyrtec and Pepcid. Continue to monitor Elevated troponin/atrial fibrillation: -Appreciate cardiology following. Elevation of cardiac enzymes likely secondary to renal failure. Not a candidate for anticoagulation due to bleeding. -Continue metoprolol for better rate control. Discharge Planning: Continue hemodialysis. Awaiting return of renal functions. Code Status: FULL CODE Discussed Condition With: RN AND PT AND CM Discharge Planning: ONCE RENAL FUNCTIONS IMPROVE OR HD SET UP
[2018-06-08] MEDS: oxyCODONE/Acetaminophen 10/325 Tablet PO PRN ×6 (01:03→20:58)
[2018-06-08] MEDS: Oral Hygiene Kit OROPHARYNG SCH ×4 (03:00→23:52)
[2018-06-08] MEDS: Heparin - SQ 10,000 UNITS/ML Vial SQ SCH ×3 (04:59→21:00)
[2018-06-08 06:49] LABS: Baso # (Auto) 0.1 th/mm3 (0.0-0.2); Baso % (Auto) 1.3 % (0.0-2.0); Eos # (Auto) 0.7 th/mm3 (0.0-0.4); Eos % (Auto) 7.2 % (0.0-4.0); Hematocrit 28.9 % (39.0-51.0); Hemoglobin 9.7 gm/dL (13.0-17.0); Mean Corpuscular HGB Conc 33.7 % (32.0-36.0); Mean Corpuscular Hemoglobin 37.3 pg (27.0-34.0); Mean Corpuscular Volume 110.8 fL (80.0-100.0); Mean Platelet Volume 9.2 fL (7.0-11.0); Mono # (Auto) 0.5 th/mm3 (0.0-0.9); Mono % (Auto) 4.9 % (0.0-8.0); Neut # (Auto) 6.2 th/mm3 (1.8-7.7); Neut % (Auto) 65.6 % (16.0-70.0); Platelet Count 200 th/mm3 (150-450); Red Blood Count 2.61 mil/mm3 (4.50-5.90); Red Cell Distribution Width 20.5 % (11.6-17.2); White Blood Count 9.5 th/mm3 (4.0-11.0)
[2018-06-08 07:27] LABS: Aspartate Aminotransferase 74 U/L (15-37); Chloride 96 meq/L (98-107); Glomerular Filtration Rate 9 mL/min (>89); Potassium 3.9 meq/L (3.5-5.1); Sodium 136 meq/L (136-145)
[2018-06-08 07:34] LABS: Alanine Aminotransferase 146 U/L (12-78); Albumin 2.7 g/dL (3.4-5.0); Alkaline Phosphatase 272 U/L (45-117); Anion Gap 12 meq/L (5-15); Blood Urea Nitrogen 35 mg/dL (7-18); Calcium 9.4 mg/dL (8.5-10.1); Glucose,Random 93 mg/dL (74-106); Magnesium 2.1 mg/dL (1.5-2.5); Phosphorus 4.3 mg/dL (2.5-4.9); Total Protein 6.9 g/dL (6.4-8.2)
[2018-06-08 08:05] LABS: Eosinophils 7 % (0-4); Lymphocytes 17 % (9-44); Metamyelocytes 3 % (0-1); Monocytes 3 % (0-8); Promyelocyte 4 % (0-0); Toxic Granulation 1+
[2018-06-08 08:06] LABS: Platelet Estimate Normal (Normal); Platelet Morphology Clumped (Normal); Spherocytes Occ
[2018-06-08] MEDS: Senna/Docusate Sodium 8.6/50 MG Tablet PO SCH ×2 (09:13→20:51)
[2018-06-08] MEDS: Calcium Acetate 667 MG Capsule PO SCH ×3 (09:13→17:04)
[2018-06-08] MEDS: Polyethylene Glycol 3350 17 GM Packet PO SCH ×2 (09:13→20:51)
[2018-06-08] MEDS: Hydrocortisone Acetate 25 MG Supp RECTAL SCH ×3 (09:14→17:06)
[2018-06-08] MEDS: Chlorhexidine 0.12% Oral Kit 15 ML UDC OROPHARYNG SCH ×2 (09:14→20:52)
[2018-06-08] MEDS: Famotidine 20 MG Tablet PO SCH ×2 (09:14→20:51)
--- NOTE | 2018-06-08 09:47 | P.PNIM ---
Subjective Interval history: 06-07 PATIENT HAD HD TODAY NO NEW ISSUES MAKING SOME URINE AWAIT KIDNEY FUNCTION RETURN 06-08 states MAKING SOME URINE NO NEW COMPLAINTS DW RN AND PT AND CM Physical Exam Vital signs: Vital Signs 06/07/18 16:00 06/07/18 20:00 06/08/18 00:00 Temperature 97.4 F L 97.7 F 98.7 F Pulse Rate 100 H 86 84 Respiratory Rate 15 18 Blood Pressure 119/64 110/54 L 135/65 Pulse Oximetry 100 100 99 06/08/18 00:15 06/08/18 02:14 06/08/18 05:02 Temperature 97.2 F L Pulse Rate 101 H Respiratory Rate 20 16 18 Blood Pressure 142/61 H Pulse Oximetry 99 06/08/18 08:00 Temperature 98.6 F Pulse Rate 98 H Respiratory Rate 18 Blood Pressure 118/59 L Pulse Oximetry 98 Intake & Output 06/07/18 06/08/18 06/08/18 18:59 06:59 18:59 Output Total 6000 / 6000 Balance -6000 / -6000 Weight 102.7 kg Output: Hemodialysis Amount 6000 / 6000 Other: # Voids 2 Date of Last Bowel Movement 06/06/18 06/08/18 06/06/18 # Bowel Movements 1 3 Narrative: GENERAL: This is a well-nourished, well-developed patient, in no apparent distress. SKIN:erythematous, morbilliform rash noted on the bilateral upper thighs with extension into the groin and suprapubic region. Small area noted in the L axilla. CARDIOVASCULAR: Normal rate and regular rhythm without murmurs, gallops, or rubs. RIGHT CHEST HD ACCESS RESPIRATORY: Good respiratory efforts. Breath sounds equal and clear to auscultation bilaterally. GASTROINTESTINAL: Abdomen soft, non-tender, non-distended. Normal active bowel sounds MUSCULOSKELETAL: Extremities without cyanosis, or edema. NEURO: Alert & Oriented x4 to person, place, time, situation. Moves all ext x4 - Urinary Catheter Management Indwelling Urethral Catheter Cath placed during this visit: yes, but has since been removed by the nurse Reason for continuing: Decision to DC catheter Insertion date: 05/28/18 Insertion time: 13:30 Removal date: 05/29/18 Removal time: 16:15 Results - Labs CBC & Chem 7: 06/08/18 05:11 06/08/18 05:11 Laboratory Results - last 24 hr 06/07/18 06/07/18 06/07/18 11:02 17:30 21:25 WBC RBC Hgb Hct MCV MCH MCHC RDW Plt Count MPV Prelim Diff (Auto) Neut % (Auto) Lymph % (Auto) Martin % (Auto) Eos % (Auto) Baso % (Auto) Neut # (Auto) Lymph # (Auto) Martin # (Auto) Eos # (Auto) Baso # (Auto) WBC Differential Seg Neuts % (Manual) Band Neuts % (Manual) Lymphocytes % (Manual) Monocytes % (Manual) Eosinophils % (Manual) Metamyelocytes % (Man) Promyelocytes % (Man) Abs Neuts (Manual) Differential Comment Toxic Granulation Platelet Estimate Platelet Morphology Spherocytes Sodium Potassium Chloride Carbon Dioxide Anion Gap BUN Creatinine Estimated GFR POC Glucose 109 143 H 144 H Random Glucose Calcium Phosphorus Magnesium Total Bilirubin AST ALT Alkaline Phosphatase Total Protein Albumin 06/08/18 06/08/18 06/08/18 05:01 05:11 05:11 WBC 9.5 RBC 2.61 L Hgb 9.7 L Hct 28.9 L MCV 110.8 H MCH 37.3 H MCHC 33.7 RDW 20.5 H Plt Count 200 MPV 9.2 Prelim Diff (Auto) Slide review pending Neut % (Auto) 65.6 Lymph % (Auto) 21.0 Martin % (Auto) 4.9 Eos % (Auto) 7.2 H Baso % (Auto) 1.3 Neut # (Auto) 6.2 Lymph # (Auto) 2.0 Martin # (Auto) 0.5 Eos # (Auto) 0.7 H Baso # (Auto) 0.1 WBC Differential Manual diff final Seg Neuts % (Manual) 61 Band Neuts % (Manual) 5 Lymphocytes % (Manual) 17 Monocytes % (Manual) 3 Eosinophils % (Manual) 7 H Metamyelocytes % (Man) 3 H Promyelocytes % (Man) 4 H Abs Neuts (Manual) 6.9 Differential Comment . Toxic Granulation 1+ H Platelet Estimate Normal Platelet Morphology Clumped H Spherocytes Occ H Sodium 136 Potassium 3.9 Chloride 96 L Carbon Dioxide 28.0 Anion Gap 12 BUN 35 H Creatinine 6.52 H Estimated GFR 9 L POC Glucose 108 Random Glucose 93 Calcium 9.4 Phosphorus 4.3 Magnesium 2.1 Total Bilirubin 1.7 H AST 74 H ALT 146 H Alkaline Phosphatase 272 H Total Protein 6.9 D Albumin 2.7 L - Procedures HD CATHETER AND INTUBATION AND EXTUBATION AND MECHANICAL VENTILATION AND HD MULTIPLE TIMES Assessment and Plan - Plan 53-year-old male with acute hypoxic and hypercarbic respiratory failure and acute severe metabolic encephalopathy with associated multiorgan failure including renal failure and liver failure. Patient required intubation and has been in the ICU in acute shock requiring pressors. He has improved and stabilized therefore transferred to the hospitalist service Acute hypoxic and hypercarbic respiratory failure: Status post intubation and extubation. - Doing well on. - Supplemental oxygen as needed. - Breathing treatments as needed. Acute renal failure secondary to rhabdomyolysis. Patient requiring hemodialysis -Ongoing hemodialysis per nephrology. Hopefully he will recover. -Status post permacath placement. -Avoid nephrotoxins. -Continue hemodialysis per nephrology. Awaiting return of renal functions. Acute liver failure secondary to alcohol: - Follow LFTs. -Continue lactulose Statin induced rhabdomyolysis: -Ongoing hemodialysis as above. -Follow CK levels. Alcohol dependence: - Off CIWA protocol. - No signs of withdrawal currently Acute diverticulitis/rectal pain: -Concerned he might have developed a rash from antibiotics. Discontinued Cipro and Flagyl. Continue to monitor. -Pain medication as needed. Rash: Probable drug reaction: Cipro and Flagyl previously discontinued. Benadryl as needed. Continue Zyrtec and Pepcid. Continue to monitor Elevated troponin/atrial fibrillation: -Appreciate cardiology following. Elevation of cardiac enzymes likely secondary to renal failure. Not a candidate for anticoagulation due to bleeding. -Continue metoprolol for better rate control. Discharge Planning: Continue hemodialysis. Awaiting return of renal functions. AM LABS Code Status: FULL CODE Discussed Condition With: RN AND PT AND CM AWAIT KIDNEY FUNCTION RETURN Discharge Planning: ONCE RENAL FUNCTIONS IMPROVE OR HD SET UP
--- NOTE | 2018-06-08 11:57 | P.DIET ---
Nutritional Evaluation Type of nutrition evaluation: follow-up Screening comments: [facility] [place] received "pt has questions regarding renal diet" Pt visited after breakfast today. He states he doesn't really have questions about his diet, however, he states that he needs to talk to his case management specialist. I relayed the message to his case management specialist and gave pt my contact info if he decided he needed diet info prior to d/c. Objective - Objective Body Mass Index: 29.9
--- NOTE | 2018-06-08 12:18 | P.PNNP ---
Subjective Interval history: patient's urine output is still dismally low, but he thinks that it has improved. Urine is quite dark in color. Physical Exam Vital signs: Vital Signs 06/07/18 16:00 06/07/18 20:00 06/08/18 00:00 Temperature 97.4 F L 97.7 F 98.7 F Pulse Rate 100 H 86 84 Respiratory Rate 15 17 18 Blood Pressure 119/64 110/54 L 135/65 Pulse Oximetry 100 100 99 06/08/18 00:15 06/08/18 02:14 06/08/18 05:02 Temperature 97.2 F L Pulse Rate 101 H Respiratory Rate 20 16 18 Blood Pressure 142/61 H Pulse Oximetry 99 06/08/18 08:00 06/08/18 12:00 Temperature 98.6 F 98 F Pulse Rate 98 H 82 Respiratory Rate 18 18 Blood Pressure 118/59 L 137/62 Pulse Oximetry 98 99 Intake & Output 06/07/18 06/08/18 06/08/18 18:59 06:59 18:59 Output Total 6000 / 6000 Balance -6000 / -6000 Weight 102.7 kg Output: Hemodialysis Amount 6000 / 6000 Other: # Voids 2 Date of Last Bowel Movement 06/06/18 06/08/18 06/06/18 # Bowel Movements 1 3 Narrative: GENERAL: This is a well-nourished, well-developed patient, in no apparent distress. SKIN:erythematous, morbilliform rash noted on the bilateral upper thighs with extension into the groin and suprapubic region. Rash appears to be resolving. CARDIOVASCULAR: Normal rate and regular rhythm without murmurs, gallops, or rubs. RIGHT CHEST HD ACCESS RESPIRATORY: Good respiratory efforts. Breath sounds equal and clear to auscultation bilaterally. GASTROINTESTINAL: Abdomen soft, non-tender, non-distended. Normal active bowel sounds MUSCULOSKELETAL: Extremities without cyanosis, or edema. NEURO: Alert & Oriented x4 to person, place, time, situation. Moves all ext x4 - Urinary Catheter Management Indwelling Urethral Catheter Cath placed during this visit: yes, but has since been removed by the nurse Reason for continuing: Decision to DC catheter Insertion date: 05/28/18 Insertion time: 13:30 Removal date: 05/29/18 Removal time: 16:15 Assessment and Plan - Assessment (1) RADHA (acute kidney injury) Code(s): N17.9 - Acute kidney failure, unspecified Status: Acute Plan: He has underlying CKD, baseline creatinine was 1.5-1.6 earlier this year. RADHA is due to rhabdomyolysis. Imaging negative for obstruction. Dialysis initiated on 05/27. Continue to monitor urine output. He has significant proteinuria. Serologies negative. CPK had improved. Hold home lisinopril, avoid other nephrotoxins. Urine out put is minimal. Watch for renal recovery. (2) Metabolic acidosis Code(s): E87.2 - Acidosis Status: Acute Plan: Due to renal failure Improved. (3) ETOH abuse Code(s): F10.10 - Alcohol abuse, uncomplicated Status: Acute Plan: Cessation has been advised. (4) Respiratory failure Code(s): J96.90 - Respiratory failure, unspecified, unspecified whether with hypoxia or hypercapnia Status: Acute Plan: resolved.
--- NOTE | 2018-06-08 13:55 | P.PNCA ---
Subjective Interval history: rash better, denies chest pain Physical Exam Vital signs: Vital Signs 06/07/18 16:00 06/07/18 20:00 06/08/18 00:00 Temperature 97.4 F L 97.7 F 98.7 F Pulse Rate 100 H 86 84 Respiratory Rate 15 17 18 Blood Pressure 119/64 110/54 L 135/65 Pulse Oximetry 100 100 99 06/08/18 00:15 06/08/18 02:14 06/08/18 05:02 Temperature 97.2 F L Pulse Rate 101 H Respiratory Rate 20 16 18 Blood Pressure 142/61 H Pulse Oximetry 99 06/08/18 08:00 06/08/18 12:00 Temperature 98.6 F 98 F Pulse Rate 98 H 82 Respiratory Rate 18 18 Blood Pressure 118/59 L 137/62 Pulse Oximetry 98 99 Intake & Output 06/07/18 06/08/18 06/08/18 18:59 06:59 18:59 Output Total 6000 / 6000 Balance -6000 / -6000 Weight 102.7 kg Output: Hemodialysis Amount 6000 / 6000 Other: # Voids 2 Date of Last Bowel Movement 06/06/18 06/08/18 06/06/18 # Bowel Movements 1 3 - Urinary Catheter Management Indwelling Urethral Catheter Cath placed during this visit: yes, but has since been removed by the nurse Reason for continuing: Decision to DC catheter Insertion date: 05/28/18 Insertion time: 13:30 Removal date: 05/29/18 Removal time: 16:15 Assessment and Plan - Assessment (1) Thrombocytopenia Code(s): D69.6 - Thrombocytopenia, unspecified Status: Acute (2) Anemia Code(s): D64.9 - Anemia, unspecified Status: Acute (3) Leukemia Code(s): C95.90 - Leukemia, unspecified not having achieved remission Status: Acute (4) NSTEMI (non-ST elevated myocardial infarction) Code(s): I21.4 - Non-ST elevation (NSTEMI) myocardial infarction Status: Acute (5) Tobacco abuse Code(s): Z72.0 - Tobacco use Status: Acute (6) RADHA (acute kidney injury) Code(s): N17.9 - Acute kidney failure, unspecified Status: Acute (7) ETOH abuse Code(s): F10.10 - Alcohol abuse, uncomplicated Status: Acute (8) Rectal pain Code(s): K62.89 - Other specified diseases of anus and rectum Status: Deleted (9) Metabolic acidosis Code(s): E87.2 - Acidosis Status: Acute (10) Diverticulitis Code(s): K57.92 - Diverticulitis of intestine, part unspecified, without perforation or abscess without bleeding Status: Acute (11) Acute renal failure Code(s): N17.9 - Acute kidney failure, unspecified Status: Acute (12) Transaminitis Code(s): R74.0 - Nonspecific elevation of levels of transaminase and lactic acid dehydrogenase [LDH] Status: Acute (13) Alcohol abuse Code(s): F10.10 - Alcohol abuse, uncomplicated Status: Acute - Plan 1.) NSTEMI - suspect trop elevation due to arf which appears to be due to rhabdomyolysis, he is assymptomatic 2.) Afib - 2d echo ef=50%, [id number] score=1, male gender, ac held due to unstable platelet count, hgb and liver function, continue to f/u trends in lfts , hgb, plt ct; rash started @ time aspirin 81 mg qd started 06/01/18, will dc aspirin and start plavix 75 mg qd, 06/05/18, no improvement in rash, i explained to patient that if due to aspirin may take several days for plasma levels of aspirin to decrease and to see improvement if rash is due to aspirin, ; not good candidate for ac with noac or coumadin due to alcohol abuse, liver failure , fall risk and unstable hgb and platelet count 3.) Respiratory failure - ef=50% on echo, assymptomatic 05/27/18, possibly due to volume overload from arf, f/u bnp, retrend trop and cpk; d/w Dr George 4.) Rash - improved 72 hours off aspirin (11) Acute renal failure Qualifiers: Acute renal failure type: unspecified Qualified Code(s): N17.9 - Acute kidney failure, unspecified
[2018-06-09] MEDS: oxyCODONE/Acetaminophen 10/325 Tablet PO PRN ×6 (00:57→22:20)
[2018-06-09] MEDS: Oral Hygiene Kit OROPHARYNG SCH ×4 (04:19→23:53)
[2018-06-09 05:05] LABS: Baso # (Auto) 0.1 th/mm3 (0.0-0.2); Baso % (Auto) 0.5 % (0.0-2.0); Eos # (Auto) 0.9 th/mm3 (0.0-0.4); Eos % (Auto) 9.4 % (0.0-4.0); Hematocrit 27.9 % (39.0-51.0); Hemoglobin 9.3 gm/dL (13.0-17.0); Lymph # (Auto) 1.8 th/mm3 (1.0-4.8); Lymph % (Auto) 18.5 % (9.0-44.0); Mean Corpuscular HGB Conc 33.3 % (32.0-36.0); Mean Corpuscular Hemoglobin 37.5 pg (27.0-34.0); Mean Corpuscular Volume 112.5 fL (80.0-100.0); Mean Platelet Volume 9.2 fL (7.0-11.0); Mono # (Auto) 0.6 th/mm3 (0.0-0.9); Mono % (Auto) 5.8 % (0.0-8.0); Neut # (Auto) 6.5 th/mm3 (1.8-7.7); Neut % (Auto) 65.8 % (16.0-70.0); Platelet Count 188 th/mm3 (150-450); Red Blood Count 2.48 mil/mm3 (4.50-5.90); Red Cell Distribution Width 20.4 % (11.6-17.2); White Blood Count 9.9 th/mm3 (4.0-11.0)
[2018-06-09] MEDS: Heparin - SQ 10,000 UNITS/ML Vial SQ SCH ×3 (05:11→22:20)
[2018-06-09 05:41] LABS: Alanine Aminotransferase 111 U/L (12-78); Albumin 2.7 g/dL (3.4-5.0); Alkaline Phosphatase 241 U/L (45-117); Anion Gap 14 meq/L (5-15); Aspartate Aminotransferase 62 U/L (15-37); Blood Urea Nitrogen 52 mg/dL (7-18); Calcium 10.2 mg/dL (8.5-10.1); Carbon Dioxide 27.2 meq/L (21.0-32.0); Chloride 94 meq/L (98-107); Glomerular Filtration Rate 7 mL/min (>89); Glucose,Random 109 mg/dL (74-106); Magnesium 1.9 mg/dL (1.5-2.5); Phosphorus 5.5 mg/dL (2.5-4.9); Potassium 4.3 meq/L (3.5-5.1); Sodium 135 meq/L (136-145); Total Protein 6.7 g/dL (6.4-8.2)
[2018-06-09 07:50] LABS: Eosinophils 3 % (0-4); Lymphocytes 17 % (9-44); Metamyelocytes 3 % (0-1); Monocytes 9 % (0-8); Myelocytes 2 % (0-0); Promyelocyte 2 % (0-0); Spherocytes 1+
[2018-06-09 07:51] LABS: Platelet Estimate Normal (Normal); Platelet Morphology Clumped (Normal)
[2018-06-09] MEDS: Chlorhexidine 0.12% Oral Kit 15 ML UDC OROPHARYNG SCH ×2 (09:48→19:30)
[2018-06-09] MEDS: Senna/Docusate Sodium 8.6/50 MG Tablet PO SCH ×2 (09:50→20:37)
[2018-06-09] MEDS: Calcium Acetate 667 MG Capsule PO SCH ×3 (09:50→18:46)
[2018-06-09] MEDS: Polyethylene Glycol 3350 17 GM Packet PO SCH ×2 (09:50→20:36)
[2018-06-09] MEDS: Hydrocortisone Acetate 25 MG Supp RECTAL SCH ×3 (09:51→19:21)
[2018-06-09] MEDS: Famotidine 20 MG Tablet PO SCH ×2 (09:51→20:37)
--- NOTE | 2018-06-09 10:49 | P.PNNP ---
Subjective Interval history: Patient thinks that his urine output has improved. Urine is slightly mine wirer in color. Physical Exam Vital signs: Vital Signs 06/08/18 12:00 06/08/18 16:00 06/08/18 20:00 Temperature 98 F 97.4 F L 97.9 F Pulse Rate 82 90 83 Respiratory Rate 18 18 20 Blood Pressure 137/62 135/59 L 118/66 Pulse Oximetry 99 99 96 06/09/18 00:00 06/09/18 04:00 06/09/18 08:00 Temperature 97.7 F 97.8 F 97.8 F Pulse Rate 82 86 88 Respiratory Rate 19 Blood Pressure 120/72 118/59 L 143/76 H Pulse Oximetry 95 97 97 Intake & Output 06/08/18 06/09/18 06/09/18 18:59 06:59 18:59 Intake Total 1220 / 1220 Balance 1220 / 1220 Weight 102.7 kg Intake: Oral 1220 / 1220 Other: # Voids 4 3 Date of Last Bowel Movement 06/08/18 06/08/18 06/08/18 # Bowel Movements 3 1 Narrative: GENERAL: This is a well-nourished, well-developed patient, in no apparent distress. SKIN:erythematous, morbilliform rash noted on the bilateral upper thighs with extension into the groin and suprapubic region. Rash appears to be resolving. CARDIOVASCULAR: Normal rate and regular rhythm without murmurs, gallops, or rubs. RESPIRATORY: Good respiratory efforts. Breath sounds equal and clear to auscultation bilaterally. GASTROINTESTINAL: Abdomen soft, non-tender, non-distended. Normal active bowel sounds MUSCULOSKELETAL: Extremities without cyanosis, or edema. NEURO: Alert & Oriented x4 to person, place, time, situation. Moves all ext x4 - Urinary Catheter Management Indwelling Urethral Catheter Cath placed during this visit: yes, but has since been removed by the nurse Reason for continuing: Decision to DC catheter Insertion date: 05/28/18 Insertion time: 13:30 Removal date: 05/29/18 Removal time: 16:15 Assessment and Plan - Assessment (1) RADHA (acute kidney injury) Code(s): N17.9 - Acute kidney failure, unspecified Status: Acute Plan: He has underlying CKD, baseline creatinine was 1.5-1.6 earlier this year. RADHA is due to rhabdomyolysis. Imaging negative for obstruction. Dialysis initiated on 05/27. Continue to monitor urine output. He has significant proteinuria. Serologies negative. CPK had improved. Hold home lisinopril, avoid other nephrotoxins. Urine out put is minimal. Watch for renal recovery. Dialysis today. (2) Metabolic acidosis Code(s): E87.2 - Acidosis Status: Acute Plan: Due to renal failure Improved. (3) ETOH abuse Code(s): F10.10 - Alcohol abuse, uncomplicated Status: Acute Plan: Cessation has been advised. (4) Respiratory failure Code(s): J96.90 - Respiratory failure, unspecified, unspecified whether with hypoxia or hypercapnia Status: Acute Plan: resolved.
--- NOTE | 2018-06-09 12:53 | P.PNCA ---
Subjective Interval history: denies chest pain Physical Exam Vital signs: Vital Signs 06/08/18 16:00 06/08/18 20:00 06/09/18 00:00 Temperature 97.4 F L 97.9 F 97.7 F Pulse Rate 90 83 82 Respiratory Rate 18 Blood Pressure 135/59 L 118/66 120/72 Pulse Oximetry 99 96 95 06/09/18 04:00 06/09/18 08:00 06/09/18 12:00 Temperature 97.8 F 97.8 F 98 F Pulse Rate 86 88 97 H Respiratory Rate Blood Pressure 118/59 L 143/76 H 110/62 Pulse Oximetry 97 97 97 Intake & Output 06/08/18 06/09/18 06/09/18 18:59 06:59 18:59 Intake Total 1220 / 1220 Balance 1220 / 1220 Weight 102.7 kg Intake: Oral 1220 / 1220 Other: # Voids 4 3 Date of Last Bowel Movement 06/08/18 06/08/18 06/08/18 # Bowel Movements 3 1 - Urinary Catheter Management Indwelling Urethral Catheter Cath placed during this visit: yes, but has since been removed by the nurse Reason for continuing: Decision to DC catheter Insertion date: 05/28/18 Insertion time: 13:30 Removal date: 05/29/18 Removal time: 16:15 Assessment and Plan - Assessment (1) Thrombocytopenia Code(s): D69.6 - Thrombocytopenia, unspecified Status: Acute (2) Anemia Code(s): D64.9 - Anemia, unspecified Status: Acute (3) Leukemia Code(s): C95.90 - Leukemia, unspecified not having achieved remission Status: Acute (4) NSTEMI (non-ST elevated myocardial infarction) Code(s): I21.4 - Non-ST elevation (NSTEMI) myocardial infarction Status: Acute (5) Tobacco abuse Code(s): Z72.0 - Tobacco use Status: Acute (6) RADHA (acute kidney injury) Code(s): N17.9 - Acute kidney failure, unspecified Status: Acute (7) ETOH abuse Code(s): F10.10 - Alcohol abuse, uncomplicated Status: Acute (8) Rectal pain Code(s): K62.89 - Other specified diseases of anus and rectum Status: Deleted (9) Metabolic acidosis Code(s): E87.2 - Acidosis Status: Acute (10) Diverticulitis Code(s): K57.92 - Diverticulitis of intestine, part unspecified, without perforation or abscess without bleeding Status: Acute (11) Acute renal failure Code(s): N17.9 - Acute kidney failure, unspecified Status: Acute (12) Transaminitis Code(s): R74.0 - Nonspecific elevation of levels of transaminase and lactic acid dehydrogenase [LDH] Status: Acute (13) Alcohol abuse Code(s): F10.10 - Alcohol abuse, uncomplicated Status: Acute - Plan 1.) NSTEMI - suspect trop elevation due to arf which appears to be due to rhabdomyolysis, he is assymptomatic 2.) Afib - 2d echo ef=50%, [id number] score=1, male gender, ac held due to unstable platelet count, hgb and liver function, continue to f/u trends in lfts , hgb, plt ct; rash started @ time aspirin 81 mg qd started 06/01/18, will dc aspirin and start plavix 75 mg qd, 06/05/18, no improvement in rash, i explained to patient that if due to aspirin may take several days for plasma levels of aspirin to decrease and to see improvement if rash is due to aspirin, ; not good candidate for ac with noac or coumadin due to alcohol abuse, liver failure , fall risk and unstable hgb and platelet count 3.) Respiratory failure - ef=50% on echo, assymptomatic 05/27/18, possibly due to volume overload from arf, f/u bnp, retrend trop and cpk; d/w Dr George 4.) Rash - improved 5 days off aspirin (11) Acute renal failure Qualifiers: Acute renal failure type: unspecified Qualified Code(s): N17.9 - Acute kidney failure, unspecified
--- NOTE | 2018-06-09 14:05 | P.PNIM ---
Subjective Interval history: 06-07 PATIENT HAD HD TODAY NO NEW ISSUES MAKING SOME URINE AWAIT KIDNEY FUNCTION RETURN 06-08 states MAKING SOME URINE NO NEW COMPLAINTS DW RN AND PT AND CM 06-09 NO NEW COMPLAINTS STATES MAKING LOTS OF URINE NOW DW RN AND PT AND CM RENAL FUNCTIONS HAVE NOT IMPROVED Physical Exam Vital signs: Vital Signs 06/08/18 16:00 06/08/18 20:00 06/09/18 00:00 Temperature 97.4 F L 97.9 F 97.7 F Pulse Rate 90 83 82 Respiratory Rate Blood Pressure 135/59 L 118/66 120/72 Pulse Oximetry 99 96 95 06/09/18 04:00 06/09/18 08:00 06/09/18 12:00 Temperature 97.8 F 97.8 F 98 F Pulse Rate 86 88 97 H Respiratory Rate Blood Pressure 118/59 L 143/76 H 110/62 Pulse Oximetry 97 97 97 Intake & Output 06/08/18 06/09/18 06/09/18 18:59 06:59 18:59 Intake Total 1220 / 1220 236 / 236 Balance 1220 / 1220 236 / 236 Weight 102.7 kg Intake: Oral 1220 / 1220 236 / 236 Other: # Voids 4 3 Date of Last Bowel Movement 06/08/18 06/08/18 06/08/18 # Bowel Movements 3 1 Narrative: GENERAL: This is a well-nourished, well-developed patient, in no apparent distress. SKIN:erythematous, morbilliform rash noted on the bilateral upper thighs with extension into the groin and suprapubic region. Rash appears to be resolving. CARDIOVASCULAR: Normal rate and regular rhythm without murmurs, gallops, or rubs. RESPIRATORY: Good respiratory efforts. Breath sounds equal and clear to auscultation bilaterally. GASTROINTESTINAL: Abdomen soft, non-tender, non-distended. Normal active bowel sounds MUSCULOSKELETAL: Extremities without cyanosis, or edema. NEURO: Alert & Oriented x4 to person, place, time, situation. Moves all ext x4 - Urinary Catheter Management Indwelling Urethral Catheter Cath placed during this visit: yes, but has since been removed by the nurse Reason for continuing: Decision to DC catheter Insertion date: 05/28/18 Insertion time: 13:30 Removal date: 05/29/18 Removal time: 16:15 Results - Labs CBC & Chem 7: 06/09/18 04:00 06/09/18 04:00 Laboratory Results - last 24 hr 06/08/18 06/08/18 06/09/18 16:41 23:50 04:00 WBC 9.9 RBC 2.48 L Hgb 9.3 L Hct 27.9 L MCV 112.5 H MCH 37.5 H MCHC 33.3 RDW 20.4 H Plt Count 188 MPV 9.2 Prelim Diff (Auto) Slide review pending Neut % (Auto) 65.8 Lymph % (Auto) 18.5 [place] % (Auto) 5.8 Eos % (Auto) 9.4 H Baso % (Auto) 0.5 Neut # (Auto) 6.5 Lymph # (Auto) 1.8 [place] # (Auto) 0.6 Eos # (Auto) 0.9 H Baso # (Auto) 0.1 WBC Differential Manual diff final Seg Neuts % (Manual) 59 Band Neuts % (Manual) 5 Lymphocytes % (Manual) 17 Monocytes % (Manual) 9 H Eosinophils % (Manual) 3 Metamyelocytes % (Man) 3 H Myelocytes % (Man) 2 H Promyelocytes % (Man) 2 H Abs Neuts (Manual) 7.0 Differential Comment . Platelet Estimate Normal Platelet Morphology Clumped H Spherocytes 1+ H Sodium Potassium Chloride Carbon Dioxide Anion Gap BUN Creatinine Estimated GFR POC Glucose 147 H 140 H Random Glucose Calcium Phosphorus Magnesium Total Bilirubin AST ALT Alkaline Phosphatase Total Protein Albumin 06/09/18 06/09/18 06/09/18 04:00 05:55 08:16 WBC RBC Hgb Hct MCV MCH MCHC RDW Plt Count MPV Prelim Diff (Auto) Neut % (Auto) Lymph % (Auto) [place] % (Auto) Eos % (Auto) Baso % (Auto) Neut # (Auto) Lymph # (Auto) [place] # (Auto) Eos # (Auto) Baso # (Auto) WBC Differential Seg Neuts % (Manual) Band Neuts % (Manual) Lymphocytes % (Manual) Monocytes % (Manual) Eosinophils % (Manual) Metamyelocytes % (Man) Myelocytes % (Man) Promyelocytes % (Man) Abs Neuts (Manual) Differential Comment Platelet Estimate Platelet Morphology Spherocytes Sodium 135 L Potassium 4.3 Chloride 94 L Carbon Dioxide 27.2 Anion Gap 14 BUN 52 H Creatinine 7.99 H Estimated GFR 7 L POC Glucose 117 H 110 Random Glucose 109 H Calcium 10.2 H D Phosphorus 5.5 H D Magnesium 1.9 Total Bilirubin 1.4 H AST 62 H ALT 111 H Alkaline Phosphatase 241 H Total Protein 6.7 Albumin 2.7 L - Imaging Abdomen/Bladder Ultrasound 05/26/18 00:00 CONCLUSION: 1. Small nonobstructing right renal stone. Otherwise, unremarkable exam. Chest X-Ray 05/26/18 08:55 CONCLUSION: No acute cardiopulmonary disease. Abdomen/Pelvis CT 05/26/18 10:54 CONCLUSION: 1. Sigmoid diverticulitis. 2. Hepatic steatosis. 3. Right renal calculus. Catheter Placement 05/27/18 00:00 CONCLUSION: 1. Uncomplicated line placement as above. Head CT 05/28/18 05:02 CONCLUSION: 1. No acute findings in the brain. . Chest X-Ray 05/28/18 06:09 CONCLUSION: 1. Right central line in good position. No evidence of pneumothorax. 2. Intubation of the right main bronchus with interval development of infiltrates/volume loss in the left perihilar and left lung base. The ET tube needs to be withdrawn at least 2.5 cm. Chest X-Ray 05/28/18 11:51 CONCLUSION: Uncomplicated line placement. No evidence of pneumothorax. Chest X-Ray 05/29/18 05:00 CONCLUSION: Increasing consolidation in the left lower lung. Central Venous Line 06/02/18 00:00 CONCLUSION: 1. Uncomplicated PermaCath placement as above. - Procedures HD CATHETER AND INTUBATION AND EXTUBATION AND MECHANICAL VENTILATION AND HD MULTIPLE TIMES Assessment and Plan - Plan 53-year-old male with acute hypoxic and hypercarbic respiratory failure and acute severe metabolic encephalopathy with associated multiorgan failure including renal failure and liver failure. Patient required intubation and has been in the ICU in acute shock requiring pressors. He has improved and stabilized therefore transferred to the hospitalist service Acute hypoxic and hypercarbic respiratory failure: Status post intubation and extubation. - Doing well on. - Supplemental oxygen as needed. - Breathing treatments as needed. Acute renal failure secondary to rhabdomyolysis. Patient requiring hemodialysis -Ongoing hemodialysis per nephrology. Hopefully he will recover. -Status post permacath placement. -Avoid nephrotoxins. -Continue hemodialysis per nephrology. Awaiting return of renal functions. Acute liver failure secondary to alcohol: - Follow LFTs. -Continue lactulose Statin induced rhabdomyolysis: -Ongoing hemodialysis as above. -Follow CK levels. Alcohol dependence: - Off CIWA protocol. - No signs of withdrawal currently Acute diverticulitis/rectal pain: -Concerned he might have developed a rash from antibiotics. Discontinued Cipro and Flagyl. Continue to monitor. -Pain medication as needed. Rash: Probable drug reaction: Cipro and Flagyl previously discontinued. Benadryl as needed. Continue Zyrtec and Pepcid. Continue to monitor Elevated troponin/atrial fibrillation: -Appreciate cardiology following. Elevation of cardiac enzymes likely secondary to renal failure. Not a candidate for anticoagulation due to bleeding. -Continue metoprolol for better rate control. Discharge Planning: Continue hemodialysis. Awaiting return of renal functions. AM LABS Code Status: FULL CODE Discussed Condition With: RN AND PT AND CM Discharge Planning: ONCE RENAL FUNCTIONS IMPROVE OR HD SET UP
[2018-06-10] MEDS: oxyCODONE/Acetaminophen 10/325 Tablet PO PRN ×6 (02:06→21:41)
[2018-06-10] MEDS: Oral Hygiene Kit OROPHARYNG SCH ×3 (03:10→17:42)
[2018-06-10] MEDS: Heparin - SQ 10,000 UNITS/ML Vial SQ SCH ×3 (05:49→22:40)
[2018-06-10 06:06] LABS: Alanine Aminotransferase 92 U/L (12-78); Albumin 2.8 g/dL (3.4-5.0); Alkaline Phosphatase 232 U/L (45-117); Anion Gap 12 meq/L (5-15); Aspartate Aminotransferase 62 U/L (15-37); Blood Urea Nitrogen 39 mg/dL (7-18); Calcium 9.7 mg/dL (8.5-10.1); Carbon Dioxide 30.1 meq/L (21.0-32.0); Chloride 94 meq/L (98-107); Glomerular Filtration Rate 9 mL/min (>89); Glucose,Random 91 mg/dL (74-106); Magnesium 2.1 mg/dL (1.5-2.5); Phosphorus 4.7 mg/dL (2.5-4.9); Potassium 4.4 meq/L (3.5-5.1); Sodium 136 meq/L (136-145); Total Protein 6.8 g/dL (6.4-8.2)
[2018-06-10] MEDS: Chlorhexidine 0.12% Oral Kit 15 ML UDC OROPHARYNG SCH ×2 (07:15→20:36)
[2018-06-10] MEDS: Polyethylene Glycol 3350 17 GM Packet PO SCH ×2 (09:21→20:21)
[2018-06-10] MEDS: Hydrocortisone Acetate 25 MG Supp RECTAL SCH ×3 (09:21→19:19)
[2018-06-10] MEDS: Calcium Acetate 667 MG Capsule PO SCH ×3 (09:22→17:51)
[2018-06-10] MEDS: Famotidine 20 MG Tablet PO SCH ×2 (09:23→20:20)
[2018-06-10] MEDS: Senna/Docusate Sodium 8.6/50 MG Tablet PO SCH ×2 (09:23→20:20)
--- NOTE | 2018-06-10 12:31 | P.PNCA ---
Subjective Interval history: denies chest pain in nad Physical Exam Vital signs: Vital Signs 06/09/18 20:00 06/10/18 00:00 06/10/18 04:00 Temperature 97.9 F 98.1 F 98.1 F Pulse Rate 88 81 80 Respiratory Rate 18 18 18 Blood Pressure 139/63 118/80 130/71 Pulse Oximetry 95 97 95 06/10/18 08:00 Temperature 98.4 F Pulse Rate 82 Respiratory Rate 20 Blood Pressure 100/52 L Pulse Oximetry 97 Intake & Output 06/09/18 06/10/18 06/10/18 18:59 06:59 18:59 Intake Total 236 / 236 Output Total 4000 / 4000 Balance -3764 / -3764 Weight 102 kg Intake: Oral 236 / 236 Output: Hemodialysis Amount 4000 / 4000 Other: # Voids 3 Date of Last Bowel Movement 06/08/18 06/09/18 06/09/18 - Urinary Catheter Management Indwelling Urethral Catheter Cath placed during this visit: yes, but has since been removed by the nurse Reason for continuing: Decision to DC catheter Insertion date: 05/28/18 Insertion time: 13:30 Removal date: 05/29/18 Removal time: 16:15 Assessment and Plan - Assessment (1) Thrombocytopenia Code(s): D69.6 - Thrombocytopenia, unspecified Status: Acute (2) Anemia Code(s): D64.9 - Anemia, unspecified Status: Acute (3) Leukemia Code(s): C95.90 - Leukemia, unspecified not having achieved remission Status: Acute (4) NSTEMI (non-ST elevated myocardial infarction) Code(s): I21.4 - Non-ST elevation (NSTEMI) myocardial infarction Status: Acute (5) Tobacco abuse Code(s): Z72.0 - Tobacco use Status: Acute (6) RADHA (acute kidney injury) Code(s): N17.9 - Acute kidney failure, unspecified Status: Acute (7) ETOH abuse Code(s): F10.10 - Alcohol abuse, uncomplicated Status: Acute (8) Rectal pain Code(s): K62.89 - Other specified diseases of anus and rectum Status: Deleted (9) Metabolic acidosis Code(s): E87.2 - Acidosis Status: Acute (10) Diverticulitis Code(s): K57.92 - Diverticulitis of intestine, part unspecified, without perforation or abscess without bleeding Status: Acute (11) Acute renal failure Code(s): N17.9 - Acute kidney failure, unspecified Status: Acute (12) Transaminitis Code(s): R74.0 - Nonspecific elevation of levels of transaminase and lactic acid dehydrogenase [LDH] Status: Acute (13) Alcohol abuse Code(s): F10.10 - Alcohol abuse, uncomplicated Status: Acute - Plan 1.) NSTEMI - suspect trop elevation due to arf which appears to be due to rhabdomyolysis, he is assymptomatic 2.) Afib - 2d echo ef=50%, [id number] score=1, male gender, ac held due to unstable platelet count, hgb and liver function, continue to f/u trends in lfts , hgb, plt ct; rash started @ time aspirin 81 mg qd started 06/01/18, will dc aspirin and start plavix 75 mg qd, 06/05/18, no improvement in rash, i explained to patient that if due to aspirin may take several days for plasma levels of aspirin to decrease and to see improvement if rash is due to aspirin, ; not good candidate for ac with noac or coumadin due to alcohol abuse, liver failure , fall risk and unstable hgb and platelet count 3.) Respiratory failure - ef=50% on echo, assymptomatic 05/27/18, possibly due to volume overload from arf, improved with dialysis 4.) Rash - improved (11) Acute renal failure Qualifiers: Acute renal failure type: unspecified Qualified Code(s): N17.9 - Acute kidney failure, unspecified
--- NOTE | 2018-06-10 12:38 | P.PNIM ---
Subjective Interval history: Mr. Gentile was afebrile with mild HTN overnight. Patient reports that he is doing ok a this time. He has noticed minimal urination in ellison bag over the past 2 days. Patient also reports itching in his back which he attributes to his resolving rash. No reported chest pain or shortness of breath. Patient reports frustration when he gets his pain medications late. Physical Exam Vital signs: Vital Signs 06/09/18 20:00 06/10/18 00:00 06/10/18 04:00 Temperature 97.9 F 98.1 F 98.1 F Pulse Rate 88 81 80 Respiratory Rate 18 18 18 Blood Pressure 139/63 118/80 130/71 Pulse Oximetry 95 97 95 06/10/18 08:00 Temperature 98.4 F Pulse Rate 82 Respiratory Rate 20 Blood Pressure 100/52 L Pulse Oximetry 97 Intake & Output 06/09/18 06/10/18 06/10/18 18:59 06:59 18:59 Intake Total 236 / 236 Output Total 4000 / 4000 Balance -3764 / -3764 Weight 102 kg Intake: Oral 236 / 236 Output: Hemodialysis Amount 4000 / 4000 Other: # Voids 3 Date of Last Bowel Movement 06/08/18 06/09/18 06/09/18 Narrative: GENERAL: no apparent distress. SKIN:erythematous, morbilliform rash noted on the bilateral upper thighs with extension into the groin and suprapubic region; per patient improving CARDIOVASCULAR: Normal rate and regular rhythm without murmurs. Grossly normal perfusion RESPIRATORY: CTAB; normal rate GASTROINTESTINAL: Abdomen soft, non-tender, non-distended. Normal active bowel sounds MUSCULOSKELETAL: Extremities without LE edema. Grossly normal motor function and ROM NEURO: Alert & Oriented. Grossly normal CN. Grossly normal peripheral motor/ sensory function - Urinary Catheter Management Indwelling Urethral Catheter Cath placed during this visit: yes, but has since been removed by the nurse Reason for continuing: Decision to DC catheter Insertion date: 05/28/18 Insertion time: 13:30 Removal date: 05/29/18 Removal time: 16:15 Results - Labs CBC & Chem 7: 06/09/18 04:00 06/10/18 04:05 Laboratory Results - last 24 hr 06/09/18 06/09/18 06/10/18 18:02 23:41 04:05 Sodium 136 Potassium 4.4 Chloride 94 L Carbon Dioxide 30.1 Anion Gap 12 BUN 39 H Creatinine 6.49 H Estimated GFR 9 L POC Glucose 121 H 114 H Random Glucose 91 Calcium 9.7 Phosphorus 4.7 Magnesium 2.1 Total Bilirubin 1.5 H AST 62 H ALT 92 H Alkaline Phosphatase 232 H Total Protein 6.8 Albumin 2.8 L 06/10/18 05:57 Sodium Potassium Chloride Carbon Dioxide Anion Gap BUN Creatinine Estimated GFR POC Glucose 125 H Random Glucose Calcium Phosphorus Magnesium Total Bilirubin AST ALT Alkaline Phosphatase Total Protein Albumin - Procedures HD CATHETER AND INTUBATION AND EXTUBATION AND MECHANICAL VENTILATION AND HD MULTIPLE TIMES Assessment and Plan - Assessment (1) RADHA (acute kidney injury) Code(s): N17.9 - Acute kidney failure, unspecified Status: Acute (2) Acute renal failure Code(s): N17.9 - Acute kidney failure, unspecified Status: Acute (3) Transaminitis Code(s): R74.0 - Nonspecific elevation of levels of transaminase and lactic acid dehydrogenase [LDH] Status: Acute (4) Alcohol abuse Code(s): F10.10 - Alcohol abuse, uncomplicated Status: Acute (5) Rhabdomyolysis due to statin therapy Code(s): M62.82 - Rhabdomyolysis Status: Acute (6) NSTEMI (non-ST elevated myocardial infarction) Code(s): I21.4 - Non-ST elevation (NSTEMI) myocardial infarction Status: Acute - Plan 53-year-old male with acute hypoxic and hypercarbic respiratory failure and acute severe metabolic encephalopathy with associated multiorgan failure including renal failure and liver failure. Patient initially required intubation /ICU care; he has since stabilized and transferred to hospitalist service: Renal Acute renal failure secondary to rhabdomyolysis from statin. Patient requiring hemodialysis. No obstruction. Dialysis started 05/27 -Nephrology consulted -Continue dialysis -monitor urine output -hold lisinopril -Hold nephrotoxins Respiratory Acute hypoxic and hypercarbic respiratory failure: Status post intubation and extubation. Echo with EF 50%; suspected failure from ARF - Supplemental oxygen as needed. - Breathing treatments as needed. -Dialysis as below Cardiovascular Elevated troponin Atrial fibrillation Impression: Cardiology consulted. Echo- EF 50%. [id number] 1. Determined anticoagulation risk high for multiple risks -Continue Plavix -Continue to monitor labs/platelet count Statin induced rhabdomyolysis -Ongoing hemodialysis as above. -Continue to trend CK levels. Alcohol dependence: - Off CIWA protocol. - No signs of withdrawal currently Acute liver failure Impression: Downtrending LFT's. Transaminases >1000 05/26 ----> less than 100 . - Follow LFTs. -Will stop lactulose (Ammonia <10 06/04) Acute diverticulitis/rectal pain Impression: 05/26 A/P CT with sigmoid diverticulitis. no reported recent symptoms. Cipro/Flagyl stopped -Continue to monitor Rash: Probable drug reaction: Cipro and Flagyl previously discontinued. Benadryl as needed. Continue Zyrtec and Pepcid. DVT PPX Heparin 5K U q8hrs Code Status: Full code Discharge Planning: Pending renal improvement/Nephrology recommendations (2) Acute renal failure Qualifiers: Acute renal failure type: unspecified Qualified Code(s): N17.9 - Acute kidney failure, unspecified
[2018-06-10] MEDS ORDERED: HYDROmorphone PF Inj 1 MG/ML Ampul IV.PUSH ONE (14:53)
[2018-06-10] MEDS ORDERED: HYDROmorphone PF Inj 2 MG/ML Vial IV.PUSH ONE (20:00)
[2018-06-11] MEDS: oxyCODONE/Acetaminophen 10/325 Tablet PO PRN ×6 (01:27→22:09)
[2018-06-11] MEDS: Oral Hygiene Kit OROPHARYNG SCH ×4 (02:26→17:15)
[2018-06-11] MEDS: Heparin - SQ 10,000 UNITS/ML Vial SQ SCH ×3 (05:27→22:11)
[2018-06-11 06:17] LABS: Baso # (Auto) 0.1 th/mm3 (0.0-0.2); Eos # (Auto) 1.4 th/mm3 (0.0-0.4); Eos % (Auto) 14.8 % (0.0-4.0); Lymph # (Auto) 1.7 th/mm3 (1.0-4.8); Mean Corpuscular HGB Conc 33.5 % (32.0-36.0); Mean Corpuscular Hemoglobin 37.3 pg (27.0-34.0); Mean Corpuscular Volume 111.2 fL (80.0-100.0); Mean Platelet Volume 8.9 fL (7.0-11.0); Mono # (Auto) 0.9 th/mm3 (0.0-0.9); Mono % (Auto) 9.8 % (0.0-8.0); Neut # (Auto) 5.2 th/mm3 (1.8-7.7); Neut % (Auto) 56.4 % (16.0-70.0); Platelet Count 191 th/mm3 (150-450); Red Blood Count 2.43 mil/mm3 (4.50-5.90); Red Cell Distribution Width 19.6 % (11.6-17.2); White Blood Count 9.2 th/mm3 (4.0-11.0)
[2018-06-11 06:35] LABS: Alanine Aminotransferase 75 U/L (12-78); Albumin 2.9 g/dL (3.4-5.0); Alkaline Phosphatase 218 U/L (45-117); Anion Gap 14 meq/L (5-15); Aspartate Aminotransferase 51 U/L (15-37); Blood Urea Nitrogen 59 mg/dL (7-18); Calcium 9.8 mg/dL (8.5-10.1); Carbon Dioxide 25.4 meq/L (21.0-32.0); Chloride 95 meq/L (98-107); Creatine Kinase 207 U/L (39-308); Glomerular Filtration Rate 7 mL/min (>89); Glucose,Random 85 mg/dL (74-106); Potassium 4.9 meq/L (3.5-5.1); Sodium 134 meq/L (136-145); Total Protein 6.9 g/dL (6.4-8.2)
[2018-06-11] MEDS: Famotidine 20 MG Tablet PO SCH ×2 (08:44→22:11)
[2018-06-11] MEDS: Chlorhexidine 0.12% Oral Kit 15 ML UDC OROPHARYNG SCH ×2 (08:44→22:12)
[2018-06-11 08:49] LABS: Eosinophils 12 % (0-4); Lymphocytes 23 % (9-44); Metamyelocytes 1 % (0-1); Monocytes 4 % (0-8); Myelocytes 2 % (0-0); Promyelocyte 2 % (0-0); Stomatocytes 1+
[2018-06-11 08:51] LABS: Platelet Estimate Normal (Normal); Platelet Morphology Normal (Normal)
[2018-06-11] MEDS: Calcium Acetate 667 MG Capsule PO SCH ×3 (08:52→17:51)
[2018-06-11] MEDS: Senna/Docusate Sodium 8.6/50 MG Tablet PO SCH ×2 (08:52→22:10)
[2018-06-11] MEDS: Polyethylene Glycol 3350 17 GM Packet PO SCH ×2 (08:53→22:10)
[2018-06-11] MEDS: Heparin 10,000 UNITS/10 ML Vial (for IV use) OTHER PRN (10:42)
[2018-06-11] MEDS: Hydrocortisone Acetate 25 MG Supp RECTAL SCH ×3 (13:51→17:56)
--- NOTE | 2018-06-11 15:00 | P.PNCA ---
Subjective Interval history: denies chest [pain Medications and Allergies Active Medications: Active Medications Acetaminophen (Tylenol) 650 mg PO Q4H PRN PRN Reason: Temp > 100.4 Acetaminophen (Tylenol) 650 mg PO UNSCH PRN PRN Reason: SEE LABEL COMMENTS Acetaminophen (Tylenol) 500 mg PO Q6H PRN PRN Reason: PAIN 1-6 Al Hydroxide/Mg Hydroxide (Milk Of Magnpineda Liq) 30 ml PO Q12H PRN PRN Reason: Mild Constipation Albuterol (Duoneb Neb (Prn)) 1 ampul NEB Q2HR NEB PRN PRN Reason: WHEEZING Bisacodyl (Dulcolax Supp) 10 mg RECTAL DAILY PRN PRN Reason: if no BM in last 24h Last Admin: 06/10/18 05:49 Dose: 10 mg Calcium Acetate (Phoslo) 667 mg PO TID [facility] [place] Last Admin: 06/11/18 13:50 Dose: 667 mg Cetirizine HCl (Zyrtec) 10 mg PO BID [facility] [place] Last Admin: 06/11/18 08:52 Dose: 10 mg Chlorhexidine Gluconate (Peridex 0.12% Oral Kit) 15 ml OROPHARYNG BID@0800, 2000 [facility] [place] Last Admin: 06/11/18 08:44 Dose: Not Given Clopidogrel Bisulfate (Plavix) 75 mg PO DAILY [facility] [place] Last Admin: 06/11/18 08:52 Dose: 75 mg Dextrose (D50w Syringe) 50 ml IV.PUSH UNSCH PRN PRN Reason: PER HYPOGLYCEMIA PROTOCOL Diphenhydramine HCl (Benadryl) 25 mg PO Q4H PRN PRN Reason: ITCHING Last Admin: 06/11/18 10:50 Dose: 25 mg Diphenhydramine HCl (Benadryl) 50 mg PO Q6H PRN PRN Reason: ITCHING Last Admin: 06/10/18 14:44 Dose: 50 mg Famotidine (Pepcid) 10 mg PO BID [facility] [place] Last Admin: 06/11/18 08:44 Dose: Not Given Gelatin (Gelfoam 12 Mm/7 Mm Topical) 1 foam TOPICAL PRN PRN PRN Reason: help stop bleeding from site Gentamicin Sulfate (Gentamicin Inj) 20 mg OTHER WITH DIALYSIS PRN PRN Reason: Dwell Gentamycin Lock Last Admin: 06/11/18 10:43 Dose: 20 mg Glucagon (Glucagon Inj) 1 mg IM ONCE PRN PRN Reason: blood sugar < 60, no iv access Haloperidol Lactate (Haldol Inj) 5 mg IV.PUSH Q15M PRN PRN Reason: for severe agitation Heparin Sodium (Porcine) (Heparin Inj) 5,000 units SQ Q8HR WEI Last Admin: 06/11/18 05:27 Dose: 5,000 units Heparin Sodium (Porcine) (Heparin Inj) 8,000 units OTHER WITH DIALYSIS PRN PRN Reason: for machine prime Last Admin: 06/04/18 12:39 Dose: 3,500 units Heparin Sodium (Porcine) (Heparin Inj) 1,000 units OTHER WITH DIALYSIS PRN PRN Reason: Dwell Heparin to Fill Catheter Last Admin: 06/11/18 10:42 Dose: 1,000 units Hydrocortisone Acetate (Hemorrhoidal Hc Supp) 25 mg RECTAL TID [facility] [place] Last Admin: 06/11/18 13:51 Dose: 25 mg Hydrocortisone Acetate (Hydrocortisone 1% Cream) 1 applicatio TOPICAL TID PRN PRN Reason: RASH Last Admin: 06/11/18 08:56 Dose: 1 applicatio Albumin Human (Flexbumin 25% Inj) 100 mls @ 60 mls/hr IV.SIG WITH DIALYSIS PRN PRN Reason: hypotension / volume replace Last Infusion: 06/05/18 08:46 Dose: Infused Sodium Chloride (Ns Inj) 1,000 mls @ 0 mls/hr OTHER .Q0M PRN PRN Reason: for prime and rinse back Sodium Chloride (Ns Inj) 1,000 mls @ 200 mls/hr OTHER .Q5H PRN PRN Reason: for dialyzer flush PRN Sodium Chloride (Ns Inj) 1,000 mls @ 0 mls/hr IV.CONT .Q0M PRN PRN Reason: hypotension / volume replace Vasopressin 40 unit/ Dextrose 100 mls @ 6 mls/hr IV.CONT CONT WEI; Protocol Last Infusion: 06/01/18 19:33 Dose: Infused Insulin Human Regular (Novolin R Inj) 1 units SQ Q6HR [facility] [place]; Protocol Last Admin: 06/11/18 13:33 Dose: Not Given Lactulose (Lactulose Liq) 30 ml PO BID [facility] [place] Last Admin: 06/11/18 08:52 Dose: 30 ml Nitroglycerin (Nitrostat Sl) 0.4 mg SL Q5M PRN PRN Reason: CHEST PAIN Ondansetron HCl (Zofran Inj) 4 mg IV.PUSH Q6H PRN PRN Reason: NAUSEA OR VOMITING Last Admin: 05/30/18 20:46 Dose: 4 mg Ondansetron HCl (Zofran Inj) 4 mg IV.PUSH UNSCH PRN PRN Reason: NAUSEA OR VOMITING Oxycodone/Acetaminophen (Percocet 10/325 Mg) 1 tab PO Q4H PRN PRN Reason: PAIN SCALE 7 TO 10 SEVERE Last Admin: 06/11/18 13:30 Dose: 1 tab Pantoprazole Sodium (Protonix) 40 mg PO DAILY [facility] [place] Last Admin: 06/11/18 08:52 Dose: 40 mg Polyethylene Glycol (Miralax) 17 gm PO BID [facility] [place] Last Admin: 06/11/18 08:53 Dose: 17 gm Senna/Docusate Sodium (Najma-Colace) 1 tab PO BID [facility] [place] Last Admin: 06/11/18 08:52 Dose: 1 tab Sennosides (Senokot) 17.2 mg PO Q12H PRN PRN Reason: Moderate Constipation Sodium Chloride (Ns Flush) 5 ml IV.FLUSH PRN PRN PRN Reason: flush each lumen during HD Sodium Chloride (Ns Flush) 2 ml IV.FLUSH UNSCH PRN PRN Reason: FLUSH AFTER USING IV ACCESS Terbutaline Sulfate (Brethine Inj) 1 mg SQ UNSCH PRN PRN Reason: For Extravasation Thiamine HCl (Vitamin B1) 100 mg PO DAILY [facility] [place] Last Admin: 06/11/18 08:54 Dose: 100 mg Zolpidem Tartrate (Ambien) 5 mg PO HS PRN PRN Reason: INSOMNIA Last Admin: 06/01/18 01:51 Dose: 5 mg Allergies Allergy/AdvReac Type Severity Reaction Status Date / Time [id number]-[id number] Reductase AdvReac Urinary Verified 06/05/18 16:04 Inhibitor Freq (Inc/Dec) Home Medications Medication Instructions Recorded Confirmed Type atorvastatin 80 mg PO DAILY 04/30/18 05/26/18 History lisinopril 10 mg PO DAILY 04/30/18 05/26/18 History Physical Exam Vital signs: Vital Signs 06/10/18 16:00 06/10/18 20:00 06/10/18 23:44 Temperature 97.7 F 98.1 F 97.7 F Pulse Rate 84 82 87 Respiratory Rate 20 18 18 Blood Pressure 101/60 112/58 L 112/57 L Pulse Oximetry 99 100 96 06/11/18 04:00 06/11/18 08:00 Temperature 98.1 F 97.8 F Pulse Rate 108 H 84 Respiratory Rate 18 18 Blood Pressure 150/63 H 111/59 L Pulse Oximetry 99 99 Intake & Output 06/10/18 06/11/18 06/11/18 18:59 06:59 18:59 Intake Total 1000 / 1000 240 / 240 Output Total 106 / 106 150 / 150 3000 / 3000 Balance 894 / 894 -150 / -150 -2760 / -2760 Weight 100 kg Intake: Oral 1000 / 1000 240 / 240 Output: Urine 105 / 105 150 / 150 Stool 1 / 1 Hemodialysis Amount 3000 / 3000 Other: # Voids 0 Date of Last Bowel Movement 06/10/18 # Bowel Movements 1 # Oral Regurgitations 5 - Urinary Catheter Management Indwelling Urethral Catheter Cath placed during this visit: yes, but has since been removed by the nurse Reason for continuing: Decision to DC catheter Insertion date: 05/28/18 Insertion time: 13:30 Removal date: 05/29/18 Removal time: 16:15 Results 06/11/18 04:51 06/11/18 04:51 Cardiac Enzymes 06/10/18 06/11/18 Range/Units 04:05 04:51 AST 62 H 51 H (15-37) U/L CBC 06/11/18 Range/Units 04:51 WBC 9.2 (4.0-11.0) th/mm3 RBC 2.43 L (4.50-5.90) mil/mm3 Hgb 9.0 L (13.0-17.0) gm/dL Hct 27.0 L (39.0-51.0) % Plt Count 191 (150-450) th/mm3 Neut # (Auto) 5.2 (1.8-7.7) th/mm3 Lymph # (Auto) 1.7 (1.0-4.8) th/mm3 Moca # (Auto) 0.9 (0.0-0.9) th/mm3 Eos # (Auto) 1.4 H (0.0-0.4) th/mm3 Baso # (Auto) 0.1 (0.0-0.2) th/mm3 Comprehensive Metabolic Panel 06/10/18 06/11/18 Range/Units 04:05 04:51 Sodium 136 134 L (136-145) meq/L Potassium 4.4 4.9 (3.5-5.1) meq/L Chloride 94 L 95 L (98-107) meq/L Carbon Dioxide 30.1 25.4 (21.0-32.0) meq/L BUN 39 H 59 H (7-18) mg/dL Creatinine 6.49 H 8.34 H (0.60-1.30) mg/dL Calcium 9.7 9.8 (8.5-10.1) mg/dL AST 62 H 51 H (15-37) U/L ALT 92 H 75 (12-78) U/L Alkaline Phosphatase 232 H 218 H (45-117) U/L Total Protein 6.8 6.9 (6.4-8.2) g/dL Albumin 2.8 L 2.9 L (3.4-5.0) g/dL Intake and Output 06/10/18 06/11/18 06/11/18 22:59 06:59 14:59 Intake Total 1000 / 1000 240 / 240 Output Total 106 / 106 150 / 150 3000 / 3000 Balance 894 / 894 -150 / -150 -2760 / -2760 Intake: Oral 1000 / 1000 240 / 240 Output: Urine 105 / 105 150 / 150 Stool 1 / 1 Hemodialysis Amount 3000 / 3000 Other: # Voids 0 Date of Last Bowel Movement 06/10/18 # Bowel Movements 1 # Oral Regurgitations 5 Weight 100 kg Assessment and Plan - Assessment (1) Thrombocytopenia Code(s): D69.6 - Thrombocytopenia, unspecified Status: Acute (2) Anemia Code(s): D64.9 - Anemia, unspecified Status: Acute (3) Leukemia Code(s): C95.90 - Leukemia, unspecified not having achieved remission Status: Acute (4) NSTEMI (non-ST elevated myocardial infarction) Code(s): I21.4 - Non-ST elevation (NSTEMI) myocardial infarction Status: Acute (5) Tobacco abuse Code(s): Z72.0 - Tobacco use Status: Acute (6) RADHA (acute kidney injury) Code(s): N17.9 - Acute kidney failure, unspecified Status: Acute (7) ETOH abuse Code(s): F10.10 - Alcohol abuse, uncomplicated Status: Acute (8) Rectal pain Code(s): K62.89 - Other specified diseases of anus and rectum Status: Deleted (9) Metabolic acidosis Code(s): E87.2 - Acidosis Status: Acute (10) Diverticulitis Code(s): K57.92 - Diverticulitis of intestine, part unspecified, without perforation or abscess without bleeding Status: Acute (11) Acute renal failure Code(s): N17.9 - Acute kidney failure, unspecified Status: Acute (12) Transaminitis Code(s): R74.0 - Nonspecific elevation of levels of transaminase and lactic acid dehydrogenase [LDH] Status: Acute (13) Alcohol abuse Code(s): F10.10 - Alcohol abuse, uncomplicated Status: Acute - Plan 1.) NSTEMI - suspect trop elevation due to arf which appears to be due to rhabdomyolysis, he is assymptomatic 2.) Afib - 2d echo ef=50%, [id number] score=1, male gender, ac held due to unstable platelet count, hgb and liver function, continue to f/u trends in lfts , hgb, plt ct; rash started @ time aspirin 81 mg qd started 06/01/18, will dc aspirin and start plavix 75 mg qd, 06/05/18, no improvement in rash, i explained to patient that if due to aspirin may take several days for plasma levels of aspirin to decrease and to see improvement if rash is due to aspirin, ; not good candidate for ac with noac or coumadin due to alcohol abuse, liver failure , fall risk and unstable hgb and platelet count 3.) Respiratory failure - ef=50% on echo, assymptomatic 05/27/18, possibly due to volume overload from arf, improved with dialysis 4.) Rash - improved (11) Acute renal failure Qualifiers: Acute renal failure type: unspecified Qualified Code(s): N17.9 - Acute kidney failure, unspecified
--- NOTE | 2018-06-11 17:06 | P.PNNP ---
Subjective Interval history: patient had dialysis today. 3 Liters removed. His urine output appears to have improved. Physical Exam Vital signs: Vital Signs 06/10/18 20:00 06/10/18 23:44 06/11/18 04:00 Temperature 98.1 F 97.7 F 98.1 F Pulse Rate 82 87 108 H Respiratory Rate 18 18 18 Blood Pressure 112/58 L 112/57 L 150/63 H Pulse Oximetry 100 96 99 06/11/18 08:00 06/11/18 16:00 Temperature 97.8 F 98.0 F Pulse Rate 84 87 Respiratory Rate 18 18 Blood Pressure 111/59 L 124/59 L Pulse Oximetry 99 98 Intake & Output 06/10/18 06/11/18 06/11/18 18:59 06:59 18:59 Intake Total 1000 / 1000 240 / 240 Output Total 106 / 106 150 / 150 3000 / 3000 Balance 894 / 894 -150 / -150 -2760 / -2760 Weight 100 kg Intake: Oral 1000 / 1000 240 / 240 Output: Urine 105 / 105 150 / 150 Stool 1 / 1 Hemodialysis Amount 3000 / 3000 Other: # Voids 0 Date of Last Bowel Movement 06/10/18 # Bowel Movements 1 # Oral Regurgitations 5 Narrative: GENERAL: no apparent distress. SKIN:erythematous, morbilliform rash noted on the bilateral upper thighs with extension into the groin and suprapubic region; Rash is improving. CARDIOVASCULAR: Normal rate and regular rhythm without murmurs. Grossly normal perfusion RESPIRATORY: CTAB; normal rate GASTROINTESTINAL: Abdomen soft, non-tender, non-distended. Normal active bowel sounds MUSCULOSKELETAL: No edema. NEURO: Alert & Oriented. - Urinary Catheter Management Indwelling Urethral Catheter Cath placed during this visit: yes, but has since been removed by the nurse Reason for continuing: Decision to DC catheter Insertion date: 05/28/18 Insertion time: 13:30 Removal date: 05/29/18 Removal time: 16:15 Assessment and Plan - Assessment (1) RADHA (acute kidney injury) Code(s): N17.9 - Acute kidney failure, unspecified Status: Acute Plan: He has underlying CKD, baseline creatinine was 1.5-1.6 earlier this year. RADHA is due to rhabdomyolysis. Dialysis initiated on 05/27. Continue to monitor urine output. He has significant proteinuria. Serologies negative. CPK had improved. Hold home lisinopril, avoid other nephrotoxins. Urine out put is minimal, but may be improving. Watch for renal recovery. Dialysis done today. (2) Metabolic acidosis Code(s): E87.2 - Acidosis Status: Acute Plan: Due to renal failure Improved. (3) ETOH abuse Code(s): F10.10 - Alcohol abuse, uncomplicated Status: Acute Plan: Cessation has been advised. (4) Respiratory failure Code(s): J96.90 - Respiratory failure, unspecified, unspecified whether with hypoxia or hypercapnia Status: Acute Plan: resolved.
--- NOTE | 2018-06-11 17:40 | P.PNIM ---
Subjective Interval history: Mr. Gentile was afebrile with stable VS overnight. 3000ml output per EMR in dialysis. 255ml urine output Patient was seen after dialysis today; patient reports that he has been doing well overall. He reports improvement in urination and that his urine is radio disc jockey in color. Paient has had improvement in rash/itching. No reported chest pain, shortness of breath, or bowel abnormalities. Physical Exam Vital signs: Vital Signs 06/10/18 20:00 06/10/18 23:44 06/11/18 04:00 Temperature 98.1 F 97.7 F 98.1 F Pulse Rate 82 87 108 H Respiratory Rate 18 18 18 Blood Pressure 112/58 L 112/57 L 150/63 H Pulse Oximetry 100 96 99 06/11/18 08:00 06/11/18 16:00 Temperature 97.8 F 98.0 F Pulse Rate 84 87 Respiratory Rate 18 18 Blood Pressure 111/59 L 124/59 L Pulse Oximetry 99 98 Intake & Output 06/10/18 06/11/18 06/11/18 18:59 06:59 18:59 Intake Total 1000 / 1000 240 / 240 Output Total 106 / 106 150 / 150 3000 / 3000 Balance 894 / 894 -150 / -150 -2760 / -2760 Weight 100 kg Intake: Oral 1000 / 1000 240 / 240 Output: Urine 105 / 105 150 / 150 Stool 1 / 1 Hemodialysis Amount 3000 / 3000 Other: # Voids 0 Date of Last Bowel Movement 06/10/18 # Bowel Movements 1 # Oral Regurgitations 5 Narrative: GENERAL: no apparent distress. SKIN:erythematous, morbilliform rash noted previously; per patient improving CARDIOVASCULAR: Normal rate and regular rhythm without murmurs. Grossly normal perfusion RESPIRATORY: CTAB; normal rate GASTROINTESTINAL: Abdomen soft, non-tender, non-distended. Normal active bowel sounds MUSCULOSKELETAL: Extremities without LE edema. Grossly normal motor function and ROM when ambulating NEURO: Alert & Oriented. Grossly normal CN. Grossly normal peripheral motor/ sensory function - Urinary Catheter Management Indwelling Urethral Catheter Cath placed during this visit: yes, but has since been removed by the nurse Reason for continuing: Decision to DC catheter Insertion date: 05/28/18 Insertion time: 13:30 Removal date: 05/29/18 Removal time: 16:15 Results - Labs CBC & Chem 7: 06/11/18 04:51 06/11/18 04:51 Laboratory Results - last 24 hr 06/11/18 06/11/18 06/11/18 01:40 04:51 04:51 WBC 9.2 RBC 2.43 L Hgb 9.0 L Hct 27.0 L MCV 111.2 H MCH 37.3 H MCHC 33.5 RDW 19.6 H Plt Count 191 MPV 8.9 Prelim Diff (Auto) Slide review pending Neut % (Auto) 56.4 Lymph % (Auto) 18.0 [place] % (Auto) 9.8 H Eos % (Auto) 14.8 H Baso % (Auto) 1.0 Neut # (Auto) 5.2 Lymph # (Auto) 1.7 [place] # (Auto) 0.9 Eos # (Auto) 1.4 H Baso # (Auto) 0.1 WBC Differential Manual diff final Seg Neuts % (Manual) 55 Band Neuts % (Manual) 1 Lymphocytes % (Manual) 23 Monocytes % (Manual) 4 Eosinophils % (Manual) 12 H Metamyelocytes % (Man) 1 Myelocytes % (Man) 2 H Promyelocytes % (Man) 2 H Abs Neuts (Manual) 5.6 Differential Comment . Platelet Estimate Normal Platelet Morphology Normal Stomatocytes 1+ H Sodium 134 L Potassium 4.9 Chloride 95 L Carbon Dioxide 25.4 Anion Gap 14 BUN 59 H Creatinine 8.34 H Estimated GFR 7 L POC Glucose 110 Random Glucose 85 Calcium 9.8 Total Bilirubin 1.4 H AST 51 H ALT 75 Alkaline Phosphatase 218 H Total Creatine Kinase 207 Total Protein 6.9 Albumin 2.9 L 06/11/18 06/11/18 05:31 11:42 WBC RBC Hgb Hct MCV MCH MCHC RDW Plt Count MPV Prelim Diff (Auto) Neut % (Auto) Lymph % (Auto) [place] % (Auto) Eos % (Auto) Baso % (Auto) Neut # (Auto) Lymph # (Auto) [place] # (Auto) Eos # (Auto) Baso # (Auto) WBC Differential Seg Neuts % (Manual) Band Neuts % (Manual) Lymphocytes % (Manual) Monocytes % (Manual) Eosinophils % (Manual) Metamyelocytes % (Man) Myelocytes % (Man) Promyelocytes % (Man) Abs Neuts (Manual) Differential Comment Platelet Estimate Platelet Morphology Stomatocytes Sodium Potassium Chloride Carbon Dioxide Anion Gap BUN Creatinine Estimated GFR POC Glucose 131 H 118 H Random Glucose Calcium Total Bilirubin AST ALT Alkaline Phosphatase Total Creatine Kinase Total Protein Albumin - Procedures HD CATHETER AND INTUBATION AND EXTUBATION AND MECHANICAL VENTILATION AND HD MULTIPLE TIMES Assessment and Plan - Assessment (1) RADHA (acute kidney injury) Code(s): N17.9 - Acute kidney failure, unspecified Status: Acute (2) Acute renal failure Code(s): N17.9 - Acute kidney failure, unspecified Status: Acute (3) Transaminitis Code(s): R74.0 - Nonspecific elevation of levels of transaminase and lactic acid dehydrogenase [LDH] Status: Acute (4) Alcohol abuse Code(s): F10.10 - Alcohol abuse, uncomplicated Status: Acute (5) Rhabdomyolysis due to statin therapy Code(s): M62.82 - Rhabdomyolysis Status: Acute (6) NSTEMI (non-ST elevated myocardial infarction) Code(s): I21.4 - Non-ST elevation (NSTEMI) myocardial infarction Status: Acute - Plan 53-year-old male with acute hypoxic and hypercarbic respiratory failure and acute severe metabolic encephalopathy with associated multiorgan failure including renal failure and liver failure. Patient initially required intubation /ICU care; he has since stabilized and transferred to hospitalist service: Renal Acute renal failure secondary to rhabdomyolysis from statin. No obstruction. Significant proteinuria. Serology negative. Mild CKD at baseline prior to acute injury. Dialysis started 05/27 Cr: 5.23 (05/26)-> 8.34 (06/11) -Nephrology consulted -Continue dialysis -s/p dialysis today; 3L removed -monitor urine output -improved 255ml in last day -hold lisinopril, other nephrotoxins Respiratory Acute hypoxic and hypercarbic respiratory failure: Status post intubation and extubation. Echo with EF 50%; suspected failure from ARF - Supplemental oxygen as needed. - Breathing treatments as needed. -Dialysis as below Cardiovascular Elevated troponin Atrial fibrillation Impression: Cardiology consulted. Echo- EF 50%. [id number] 1. Determined anticoagulation risk high for multiple risks -Continue Plavix -Continue to monitor labs/platelet count Statin induced rhabdomyolysis -Ongoing hemodialysis as above. -Continue to trend CK levels. Alcohol dependence: - Off [facility] protocol. - No signs of withdrawal currently Acute liver failure Impression: Downtrending LFT's. Transaminases >1000 05/26 ----> less than 100 . - Follow LFTs. -Will stop lactulose (Ammonia <10 06/04) Acute diverticulitis/rectal pain Impression: 05/26 A/P CT with sigmoid diverticulitis. no reported recent symptoms. Cipro/Flagyl stopped -Continue to monitor Rash: Probable drug reaction: Cipro and Flagyl previously discontinued. Benadryl as needed. Continue Zyrtec and Pepcid. DVT PPX Heparin 5K U q8hrs Code Status: Full Discharge Planning: Pending renal improvement/Nephrology recommendations (2) Acute renal failure Qualifiers: Acute renal failure type: unspecified Qualified Code(s): N17.9 - Acute kidney failure, unspecified
[2018-06-12] MEDS: oxyCODONE/Acetaminophen 10/325 Tablet PO PRN ×6 (02:55→20:44)
[2018-06-12] MEDS: Oral Hygiene Kit OROPHARYNG SCH ×3 (04:03→15:07)
[2018-06-12] MEDS: Heparin - SQ 10,000 UNITS/ML Vial SQ SCH ×3 (06:26→21:11)
--- NOTE | 2018-06-12 07:16 | P.PNCA ---
Subjective Interval history: denies chest pain Medications and Allergies Active Medications: Active Medications Acetaminophen (Tylenol) 650 mg PO Q4H PRN PRN Reason: Temp > 100.4 Acetaminophen (Tylenol) 650 mg PO UNSCH PRN PRN Reason: SEE LABEL COMMENTS Acetaminophen (Tylenol) 500 mg PO Q6H PRN PRN Reason: PAIN 1-6 Al Hydroxide/Mg Hydroxide (Milk Of Magnpineda Liq) 30 ml PO Q12H PRN PRN Reason: Mild Constipation Albuterol (Duoneb Neb (Prn)) 1 ampul NEB Q2HR NEB PRN PRN Reason: WHEEZING Bisacodyl (Dulcolax Supp) 10 mg RECTAL DAILY PRN PRN Reason: if no BM in last 24h Last Admin: 06/10/18 05:49 Dose: 10 mg Bumetanide (Bumex Inj) 2 mg IV.PUSH BID@0900,1800 [facility] Last Admin: 06/11/18 17:52 Dose: 2 mg Calcium Acetate (Phoslo) 667 mg PO TID [facility] Last Admin: 06/11/18 17:51 Dose: 667 mg Cetirizine HCl (Zyrtec) 10 mg PO BID [facility] Last Admin: 06/11/18 22:11 Dose: 10 mg Chlorhexidine Gluconate (Peridex 0.12% Oral Kit) 15 ml OROPHARYNG BID@0800, 2000 [facility] Last Admin: 06/11/18 22:12 Dose: Not Given Clopidogrel Bisulfate (Plavix) 75 mg PO DAILY [facility] Last Admin: 06/11/18 08:52 Dose: 75 mg Dextrose (D50w Syringe) 50 ml IV.PUSH UNSCH PRN PRN Reason: PER HYPOGLYCEMIA PROTOCOL Diphenhydramine HCl (Benadryl) 25 mg PO Q4H PRN PRN Reason: ITCHING Last Admin: 06/12/18 06:27 Dose: 25 mg Diphenhydramine HCl (Benadryl) 50 mg PO Q6H PRN PRN Reason: ITCHING Last Admin: 06/10/18 14:44 Dose: 50 mg Famotidine (Pepcid) 10 mg PO BID [facility] Last Admin: 06/11/18 22:11 Dose: Not Given Gelatin (Gelfoam 12 Mm/7 Mm Topical) 1 foam TOPICAL PRN PRN PRN Reason: help stop bleeding from site Gentamicin Sulfate (Gentamicin Inj) 20 mg OTHER WITH DIALYSIS PRN PRN Reason: Dwell Gentamycin Lock Last Admin: 06/11/18 10:43 Dose: 20 mg Glucagon (Glucagon Inj) 1 mg IM ONCE PRN PRN Reason: blood sugar < 60, no iv access Haloperidol Lactate (Haldol Inj) 5 mg IV.PUSH Q15M PRN PRN Reason: for severe agitation Heparin Sodium (Porcine) (Heparin Inj) 5,000 units SQ Q8HR [facility] Last Admin: 06/12/18 06:26 Dose: 5,000 units Heparin Sodium (Porcine) (Heparin Inj) 8,000 units OTHER WITH DIALYSIS PRN PRN Reason: for machine prime Last Admin: 06/04/18 12:39 Dose: 3,500 units Heparin Sodium (Porcine) (Heparin Inj) 1,000 units OTHER WITH DIALYSIS PRN PRN Reason: Dwell Heparin to Fill Catheter Last Admin: 06/11/18 10:42 Dose: 1,000 units Hydrocortisone Acetate (Hemorrhoidal Hc Supp) 25 mg RECTAL TID [facility] Last Admin: 06/11/18 17:56 Dose: 25 mg Hydrocortisone Acetate (Hydrocortisone 1% Cream) 1 applicatio TOPICAL TID PRN PRN Reason: RASH Last Admin: 06/11/18 08:56 Dose: 1 applicatio Albumin Human (Flexbumin 25% Inj) 100 mls @ 60 mls/hr IV.SIG WITH DIALYSIS PRN PRN Reason: hypotension / volume replace Last Infusion: 06/05/18 08:46 Dose: Infused Sodium Chloride (Ns Inj) 1,000 mls @ 0 mls/hr OTHER .Q0M PRN PRN Reason: for prime and rinse back Sodium Chloride (Ns Inj) 1,000 mls @ 200 mls/hr OTHER .Q5H PRN PRN Reason: for dialyzer flush PRN Sodium Chloride (Ns Inj) 1,000 mls @ 0 mls/hr IV.CONT .Q0M PRN PRN Reason: hypotension / volume replace Vasopressin 40 unit/ Dextrose 100 mls @ 6 mls/hr IV.CONT CONT [facility]I; Protocol Last Infusion: 06/01/18 19:33 Dose: Infused Insulin Human Regular (Novolin R Inj) 1 units SQ Q6HR [facility]; Protocol Last Admin: 06/12/18 00:00 Dose: Not Given Lactulose (Lactulose Liq) 30 ml PO BID [facility] Last Admin: 06/11/18 22:10 Dose: 30 ml Nitroglycerin (Nitrostat Sl) 0.4 mg SL Q5M PRN PRN Reason: CHEST PAIN Ondansetron HCl (Zofran Inj) 4 mg IV.PUSH Q6H PRN PRN Reason: NAUSEA OR VOMITING Last Admin: 05/30/18 20:46 Dose: 4 mg Ondansetron HCl (Zofran Inj) 4 mg IV.PUSH UNSCH PRN PRN Reason: NAUSEA OR VOMITING Oxycodone/Acetaminophen (Percocet 10/325 Mg) 1 tab PO Q4H PRN PRN Reason: PAIN SCALE 7 TO 10 SEVERE Last Admin: 06/12/18 06:26 Dose: 1 tab Pantoprazole Sodium (Protonix) 40 mg PO DAILY [facility] Last Admin: 06/11/18 08:52 Dose: 40 mg Polyethylene Glycol (Miralax) 17 gm PO BID [facility] Last Admin: 06/11/18 22:10 Dose: 17 gm Senna/Docusate Sodium (Najma-Colace) 1 tab PO BID [facility] Last Admin: 06/11/18 22:10 Dose: 1 tab Sennosides (Senokot) 17.2 mg PO Q12H PRN PRN Reason: Moderate Constipation Sodium Chloride (Ns Flush) 5 ml IV.FLUSH PRN PRN PRN Reason: flush each lumen during HD Sodium Chloride (Ns Flush) 2 ml IV.FLUSH UNSCH PRN PRN Reason: FLUSH AFTER USING IV ACCESS Terbutaline Sulfate (Brethine Inj) 1 mg SQ UNSCH PRN PRN Reason: For Extravasation Thiamine HCl (Vitamin B1) 100 mg PO DAILY [facility] Last Admin: 06/11/18 08:54 Dose: 100 mg Zolpidem Tartrate (Ambien) 5 mg PO HS PRN PRN Reason: INSOMNIA Last Admin: 06/01/18 01:51 Dose: 5 mg Allergies Allergy/AdvReac Type Severity Reaction Status Date / Time Donlbhj-Kwi-Sbf Reductase AdvReac Urinary Verified 06/05/18 16:04 Inhibitor Freq (Inc/Dec) Home Medications Medication Instructions Recorded Confirmed Type atorvastatin 80 mg PO DAILY 04/30/18 05/26/18 History lisinopril 10 mg PO DAILY 04/30/18 05/26/18 History Physical Exam Vital signs: Vital Signs 06/11/18 08:00 06/11/18 16:00 06/11/18 20:00 Temperature 97.8 F 98.0 F 98.2 F Pulse Rate 84 87 90 Respiratory Rate 18 18 20 Blood Pressure 111/59 L 124/59 L 112/58 L Pulse Oximetry 99 98 94 L 06/12/18 00:00 06/12/18 04:00 Temperature 98.1 F 97.9 F Pulse Rate 84 89 Respiratory Rate 20 20 Blood Pressure 117/61 115/63 Pulse Oximetry 97 100 Intake & Output 06/11/18 06/12/18 06/12/18 18:59 06:59 18:59 Intake Total 240 / 240 300 / 300 Output Total 3000 / 3000 50 / 50 Balance -2760 / -2760 250 / 250 Intake: Oral 240 / 240 300 / 300 Output: Urine 50 / 50 Hemodialysis Amount 3000 / 3000 Other: Date of Last Bowel Movement 06/11/18 - Urinary Catheter Management Indwelling Urethral Catheter Cath placed during this visit: yes, but has since been removed by the nurse Reason for continuing: Decision to DC catheter Insertion date: 05/28/18 Insertion time: 13:30 Removal date: 05/29/18 Removal time: 16:15 Results 06/11/18 04:51 06/11/18 04:51 Cardiac Enzymes 06/11/18 Range/Units 04:51 AST 51 H (15-37) U/L CBC 06/11/18 Range/Units 04:51 WBC 9.2 (4.0-11.0) th/mm3 RBC 2.43 L (4.50-5.90) mil/mm3 Hgb 9.0 L (13.0-17.0) gm/dL Hct 27.0 L (39.0-51.0) % Plt Count 191 (150-450) th/mm3 Neut # (Auto) 5.2 (1.8-7.7) th/mm3 Lymph # (Auto) 1.7 (1.0-4.8) th/mm3 [place] # (Auto) 0.9 (0.0-0.9) th/mm3 Eos # (Auto) 1.4 H (0.0-0.4) th/mm3 Baso # (Auto) 0.1 (0.0-0.2) th/mm3 Comprehensive Metabolic Panel 06/11/18 Range/Units 04:51 Sodium 134 L (136-145) meq/L Potassium 4.9 (3.5-5.1) meq/L Chloride 95 L (98-107) meq/L Carbon Dioxide 25.4 (21.0-32.0) meq/L BUN 59 H (7-18) mg/dL Creatinine 8.34 H (0.60-1.30) mg/dL Calcium 9.8 (8.5-10.1) mg/dL AST 51 H (15-37) U/L ALT 75 (12-78) U/L Alkaline Phosphatase 218 H (45-117) U/L Total Protein 6.9 (6.4-8.2) g/dL Albumin 2.9 L (3.4-5.0) g/dL Intake and Output 06/11/18 06/12/18 06/12/18 22:59 06:59 14:59 Intake Total 300 / 300 Output Total 50 / 50 Balance 250 / 250 Intake: Oral 300 / 300 Output: Urine 50 / 50 Assessment and Plan - Assessment (1) Thrombocytopenia Code(s): D69.6 - Thrombocytopenia, unspecified Status: Acute (2) Anemia Code(s): D64.9 - Anemia, unspecified Status: Acute (3) Leukemia Code(s): C95.90 - Leukemia, unspecified not having achieved remission Status: Acute (4) NSTEMI (non-ST elevated myocardial infarction) Code(s): I21.4 - Non-ST elevation (NSTEMI) myocardial infarction Status: Acute (5) Tobacco abuse Code(s): Z72.0 - Tobacco use Status: Acute (6) RADHA (acute kidney injury) Code(s): N17.9 - Acute kidney failure, unspecified Status: Acute (7) ETOH abuse Code(s): F10.10 - Alcohol abuse, uncomplicated Status: Acute (8) Rectal pain Code(s): K62.89 - Other specified diseases of anus and rectum Status: Deleted (9) Metabolic acidosis Code(s): E87.2 - Acidosis Status: Acute (10) Diverticulitis Code(s): K57.92 - Diverticulitis of intestine, part unspecified, without perforation or abscess without bleeding Status: Acute (11) Acute renal failure Code(s): N17.9 - Acute kidney failure, unspecified Status: Acute (12) Transaminitis Code(s): R74.0 - Nonspecific elevation of levels of transaminase and lactic acid dehydrogenase [LDH] Status: Acute (13) Alcohol abuse Code(s): F10.10 - Alcohol abuse, uncomplicated Status: Acute - Plan 1.) NSTEMI - suspect trop elevation due to arf which appears to be due to rhabdomyolysis, he is assymptomatic 2.) Afib - 2d echo ef=50%, [id number] score=1, male gender, ac held due to unstable platelet count, hgb and liver function, continue to f/u trends in lfts , hgb, plt ct; rash started @ time aspirin 81 mg qd started 06/01/18, will dc aspirin and start plavix 75 mg qd, 06/05/18, no improvement in rash, i explained to patient that if due to aspirin may take several days for plasma levels of aspirin to decrease and to see improvement if rash is due to aspirin, ; not good candidate for ac with noac or coumadin due to alcohol abuse, liver failure , fall risk and unstable hgb and platelet count 3.) Respiratory failure - ef=50% on echo, assymptomatic 05/27/18, possibly due to volume overload from arf, improved with dialysis 4.) Rash - improved (11) Acute renal failure Qualifiers: Acute renal failure type: unspecified Qualified Code(s): N17.9 - Acute kidney failure, unspecified
[2018-06-12 08:02] LABS: Albumin 2.8 g/dL (3.4-5.0); Calcium 9.1 mg/dL (8.5-10.1); Carbon Dioxide 28.5 meq/L (21.0-32.0); Phosphorus 5.6 mg/dL (2.5-4.9); Potassium 4.2 meq/L (3.5-5.1)
[2018-06-12] MEDS: Senna/Docusate Sodium 8.6/50 MG Tablet PO SCH ×2 (09:21→21:11)
[2018-06-12] MEDS: Famotidine 20 MG Tablet PO SCH ×2 (09:21→21:12)
[2018-06-12] MEDS: Calcium Acetate 667 MG Capsule PO SCH ×3 (09:21→17:08)
[2018-06-12] MEDS: Polyethylene Glycol 3350 17 GM Packet PO SCH ×2 (09:21→21:10)
[2018-06-12] MEDS: Hydrocortisone Acetate 25 MG Supp RECTAL SCH ×3 (09:22→17:08)
[2018-06-12] MEDS: Chlorhexidine 0.12% Oral Kit 15 ML UDC OROPHARYNG SCH ×2 (09:22→21:12)
--- NOTE | 2018-06-12 12:20 | P.PNNP ---
Subjective Interval history: Patient has been started on Bumex. He thinks that urine output has improved. He is still oliguric however. I have informed him to limit fluid intake. Physical Exam Vital signs: Vital Signs 06/11/18 16:00 06/11/18 20:00 06/12/18 00:00 Temperature 98.0 F 98.2 F 98.1 F Pulse Rate 87 90 84 Respiratory Rate 18 20 20 Blood Pressure 124/59 L 112/58 L 117/61 Pulse Oximetry 98 94 L 97 06/12/18 04:00 06/12/18 08:00 06/12/18 11:43 Temperature 97.9 F 97.4 F L 98.2 F Pulse Rate 89 83 95 H Respiratory Rate 20 18 18 Blood Pressure 115/63 128/59 L 119/56 L Pulse Oximetry 100 97 97 Intake & Output 06/11/18 06/12/18 06/12/18 18:59 06:59 18:59 Intake Total 240 / 240 300 / 300 Output Total 3000 / 3000 50 / 50 Balance -2760 / -2760 250 / 250 Intake: Oral 240 / 240 300 / 300 Output: Urine 50 / 50 Hemodialysis Amount 3000 / 3000 Other: Date of Last Bowel Movement 06/11/18 Narrative: GENERAL: no apparent distress. SKIN:erythematous, morbilliform rash noted previously; Improving. CARDIOVASCULAR: Normal rate and regular rhythm without murmurs. Grossly normal perfusion RESPIRATORY: CTAB; normal rate GASTROINTESTINAL: Abdomen soft, non-tender, non-distended. Normal active bowel sounds MUSCULOSKELETAL: 3 + edema. NEURO: Alert & Oriented. Grossly normal CN. Grossly normal peripheral motor/ sensory function - Urinary Catheter Management Indwelling Urethral Catheter Cath placed during this visit: yes, but has since been removed by the nurse Reason for continuing: Decision to DC catheter Insertion date: 05/28/18 Insertion time: 13:30 Removal date: 05/29/18 Removal time: 16:15 Assessment and Plan - Assessment (1) RADHA (acute kidney injury) Code(s): N17.9 - Acute kidney failure, unspecified Status: Acute Plan: He has underlying CKD, baseline creatinine was 1.5-1.6 earlier this year. RADHA is due to rhabdomyolysis. Dialysis initiated on 05/27. Continue to monitor urine output. He has significant proteinuria. Serologies negative. CPK had improved. Avoid nephrotoxic agents. Urine out put is minimal, but may be improving. Watch for renal recovery. Dialysis either tomorrow or on Thursday. (2) Metabolic acidosis Code(s): E87.2 - Acidosis Status: Acute Plan: Due to renal failure Improved. (3) ETOH abuse Code(s): F10.10 - Alcohol abuse, uncomplicated Status: Acute Plan: Cessation has been advised. (4) Respiratory failure Code(s): J96.90 - Respiratory failure, unspecified, unspecified whether with hypoxia or hypercapnia Status: Acute Plan: resolved.
--- NOTE | 2018-06-12 18:03 | P.PNIM ---
Subjective Interval history: Mr. Gentile was afebrile with stable VS overnight. 400 ml urine output overnight per EMR review. Patient is encouraged by his increased urine output. He also reports that he has noticed increased lower extremity swelling recently. He states that he was told to drink <40 ounces of fluids daily; he estimates drinking ~2x this but will try to decrease. No chest pain, shortness of breath, abdominal pain, or other concerns. Patient requests Nicotine patch today Physical Exam Vital signs: Vital Signs 06/11/18 20:00 06/12/18 00:00 06/12/18 04:00 Temperature 98.2 F 98.1 F 97.9 F Pulse Rate 90 84 89 Respiratory Rate 20 20 20 Blood Pressure 112/58 L 117/61 115/63 Pulse Oximetry 94 L 97 100 06/12/18 08:00 06/12/18 11:43 06/12/18 15:48 Temperature 97.4 F L 98.2 F 98.2 F Pulse Rate 83 95 H 95 H Respiratory Rate 18 18 20 Blood Pressure 128/59 L 119/56 L 145/70 H Pulse Oximetry 97 97 100 Intake & Output 06/11/18 06/12/18 06/12/18 18:59 06:59 18:59 Intake Total 240 / 240 300 / 300 1500 / 1500 Output Total 3000 / 3000 50 / 50 400 / 400 Balance -2760 / -2760 250 / 250 1100 / 1100 Intake: Oral 240 / 240 300 / 300 1500 / 1500 Output: Urine 50 / 50 400 / 400 Hemodialysis Amount 3000 / 3000 Other: Date of Last Bowel Movement 06/11/18 # Bowel Movements 1 Narrative: GENERAL: no apparent distress. SKIN: rash not inspected today; reportedly improving CARDIOVASCULAR: Normal rate and regular rhythm without murmurs. Grossly normal perfusion RESPIRATORY: CTAB; normal rate GASTROINTESTINAL: Abdomen soft, non-tender, non-distended. Normal active bowel sounds MUSCULOSKELETAL: Extremities with increased LE edema. Grossly normal motor function and ROM NEURO: Alert & Oriented. Grossly normal CN. Grossly normal peripheral motor/ sensory function - Urinary Catheter Management Indwelling Urethral Catheter Cath placed during this visit: yes, but has since been removed by the nurse Reason for continuing: Decision to DC catheter Insertion date: 05/28/18 Insertion time: 13:30 Removal date: 05/29/18 Removal time: 16:15 Results - Labs CBC & Chem 7: 06/11/18 04:51 06/12/18 21:57 Laboratory Results - last 24 hr 06/11/18 06/12/18 06/12/18 18:35 05:04 06:31 Sodium 137 Potassium 4.2 Chloride 97 L Carbon Dioxide 28.5 Anion Gap 12 BUN 45 H Creatinine 7.10 H Estimated GFR 8 L POC Glucose 181 H 130 H Random Glucose 95 Calcium 9.1 Phosphorus 5.6 H Albumin 2.8 L 06/12/18 06/12/18 06/12/18 07:25 11:23 16:16 Sodium Potassium Chloride Carbon Dioxide Anion Gap BUN Creatinine Estimated GFR POC Glucose 96 96 122 H Random Glucose Calcium Phosphorus Albumin - Procedures HD CATHETER AND INTUBATION AND EXTUBATION AND MECHANICAL VENTILATION AND HD MULTIPLE TIMES Assessment and Plan - Assessment (1) RADHA (acute kidney injury) Code(s): N17.9 - Acute kidney failure, unspecified Status: Acute (2) Acute renal failure Code(s): N17.9 - Acute kidney failure, unspecified Status: Acute (3) Transaminitis Code(s): R74.0 - Nonspecific elevation of levels of transaminase and lactic acid dehydrogenase [LDH] Status: Acute (4) Alcohol abuse Code(s): F10.10 - Alcohol abuse, uncomplicated Status: Acute (5) Rhabdomyolysis due to statin therapy Code(s): M62.82 - Rhabdomyolysis Status: Acute (6) NSTEMI (non-ST elevated myocardial infarction) Code(s): I21.4 - Non-ST elevation (NSTEMI) myocardial infarction Status: Acute - Plan 53-year-old male with acute hypoxic and hypercarbic respiratory failure and acute severe metabolic encephalopathy with associated multiorgan failure including renal failure and liver failure. Patient initially required intubation /ICU care; he has since stabilized and transferred to hospitalist service: Renal Acute renal failure secondary to rhabdomyolysis from statin. No obstruction. Significant proteinuria. Serology negative. Mild CKD at baseline prior to acute injury. Dialysis started 05/27 Cr: 5.23 (05/26)-> 8.34 (06/11) -dialysis -> 7.1 (06/12)-> 8.1 (06/12) -Nephrology consulted -Continue dialysis -s/p dialysis yesterday; 3L removed -monitor urine output -improved 400ml in last day -hold lisinopril, other nephrotoxins Respiratory Acute hypoxic and hypercarbic respiratory failure: Status post intubation and extubation. Echo with EF 50%; suspected failure from ARF - Supplemental oxygen as needed. - Breathing treatments as needed. -Dialysis as below Cardiovascular Elevated troponin Atrial fibrillation Impression: Cardiology consulted. Echo- EF 50%. [id number] 1. Determined anticoagulation risk high for multiple risks -Continue Plavix -Continue to monitor labs/platelet count Statin induced rhabdomyolysis -Ongoing hemodialysis as above. -Continue to trend CK levels. Alcohol dependence: - Off CIWA protocol. - No signs of withdrawal currently Acute liver failure Impression: Downtrending LFT's. Transaminases >1000 05/26 ----> less than 100 . - Follow LFTs. -Will stop lactulose (Ammonia <10 06/04) Acute diverticulitis/rectal pain Impression: 05/26 A/P CT with sigmoid diverticulitis. no reported recent symptoms. Cipro/Flagyl stopped -Continue to monitor Rash: Probable drug reaction: Cipro and Flagyl previously discontinued. Benadryl as needed. Continue Zyrtec and Pepcid. Tobacco dependence -Nicotine patch given DVT PPX Heparin 5K U q8hrs Code Status: Full code Discharge Planning: Pending renal improvement/Nephrology recommendations (2) Acute renal failure Qualifiers: Acute renal failure type: unspecified Qualified Code(s): N17.9 - Acute kidney failure, unspecified
[2018-06-12 22:53] LABS: Albumin 2.8 g/dL (3.4-5.0); Calcium 8.8 mg/dL (8.5-10.1); Phosphorus 6.2 mg/dL (2.5-4.9); Potassium 4.6 meq/L (3.5-5.1)
[2018-06-13] MEDS: Oral Hygiene Kit OROPHARYNG SCH ×4 (00:05→17:28)
[2018-06-13] MEDS: oxyCODONE/Acetaminophen 10/325 Tablet PO PRN ×6 (00:45→23:52)
[2018-06-13] MEDS: Heparin - SQ 10,000 UNITS/ML Vial SQ SCH ×3 (05:37→21:00)
[2018-06-13] MEDS: Chlorhexidine 0.12% Oral Kit 15 ML UDC OROPHARYNG SCH ×2 (08:11→19:09)
[2018-06-13] MEDS: Famotidine 20 MG Tablet PO SCH ×2 (08:14→20:53)
[2018-06-13] MEDS: Polyethylene Glycol 3350 17 GM Packet PO SCH ×2 (08:14→20:52)
[2018-06-13] MEDS: Senna/Docusate Sodium 8.6/50 MG Tablet PO SCH ×2 (08:14→20:53)
[2018-06-13] MEDS: Calcium Acetate 667 MG Capsule PO SCH ×3 (08:15→17:39)
[2018-06-13] MEDS: Hydrocortisone Acetate 25 MG Supp RECTAL SCH ×3 (08:15→17:39)
[2018-06-13 09:10] LABS: Baso # (Auto) 0.1 th/mm3 (0.0-0.2); Baso % (Auto) 1.3 % (0.0-2.0); Eos # (Auto) 1.5 th/mm3 (0.0-0.4); Eos % (Auto) 22.1 % (0.0-4.0); Hematocrit 24.9 % (39.0-51.0); Hemoglobin 8.2 gm/dL (13.0-17.0); Lymph # (Auto) 1.1 th/mm3 (1.0-4.8); Mean Corpuscular HGB Conc 32.9 % (32.0-36.0); Mean Corpuscular Hemoglobin 37.1 pg (27.0-34.0); Mean Corpuscular Volume 112.9 fL (80.0-100.0); Mean Platelet Volume 9.1 fL (7.0-11.0); Mono # (Auto) 0.5 th/mm3 (0.0-0.9); Mono % (Auto) 7.5 % (0.0-8.0); Neut # (Auto) 3.5 th/mm3 (1.8-7.7); Neut % (Auto) 52.1 % (16.0-70.0); Platelet Count 196 th/mm3 (150-450); Red Blood Count 2.21 mil/mm3 (4.50-5.90); Red Cell Distribution Width 19.1 % (11.6-17.2); White Blood Count 6.6 th/mm3 (4.0-11.0)
[2018-06-13 09:22] LABS: Albumin 2.9 g/dL (3.4-5.0); Calcium 8.7 mg/dL (8.5-10.1); Phosphorus 6.4 mg/dL (2.5-4.9); Potassium 4.4 meq/L (3.5-5.1)
[2018-06-13 09:28] LABS: Albumin 2.9 g/dL (3.4-5.0); Anion Gap 13 meq/L (5-15); Aspartate Aminotransferase 51 U/L (15-37); Calcium 9.3 mg/dL (8.5-10.1); Carbon Dioxide 27.8 meq/L (21.0-32.0); Chloride 96 meq/L (98-107); Glomerular Filtration Rate 6 mL/min (>89); Glucose,Random 83 mg/dL (74-106); Potassium 4.4 meq/L (3.5-5.1); Sodium 137 meq/L (136-145)
[2018-06-13 09:36] LABS: Alanine Aminotransferase 60 U/L (12-78); Alkaline Phosphatase 195 U/L (45-117); Blood Urea Nitrogen 58 mg/dL (7-18); Creatine Kinase 172 U/L (39-308)
[2018-06-13 09:48] LABS: Eosinophils 25 % (0-4); Lymphocytes 12 % (9-44); Metamyelocytes 1 % (0-1); Monocytes 10 % (0-8); Myelocytes 1 % (0-0)
[2018-06-13 09:49] LABS: Platelet Estimate Normal (Normal); Platelet Morphology Normal (Normal)
--- NOTE | 2018-06-13 11:50 | P.PNNP ---
Subjective Interval history: Urine output appears to have improved Continues to have significant amount of lower extremity swelling. Physical Exam Vital signs: Vital Signs 06/12/18 15:48 06/12/18 20:00 06/13/18 00:00 Temperature 98.2 F 97.7 F 98.1 F Pulse Rate 95 H 90 82 Respiratory Rate 20 18 18 Blood Pressure 145/70 H 109/57 L 160/72 H Pulse Oximetry 100 97 97 06/13/18 04:00 06/13/18 07:46 06/13/18 09:37 Temperature 97.5 F L 97.9 F Pulse Rate 95 H 77 Respiratory Rate 18 20 Blood Pressure 92/64 L 121/58 L Pulse Oximetry 97 99 98 Intake & Output 06/12/18 06/13/18 06/13/18 18:59 06:59 18:59 Intake Total 1500 / 1500 Output Total 400 / 400 Balance 1100 / 1100 Weight 100 kg Intake: Oral 1500 / 1500 Output: Urine 400 / 400 Other: # Voids 2 # Bowel Movements 1 Narrative: GENERAL: no apparent distress. SKIN: Improved skin rash. CARDIOVASCULAR: Normal rate and regular rhythm without murmurs. Grossly normal perfusion RESPIRATORY: CTAB; normal rate GASTROINTESTINAL: Abdomen soft, non-tender, non-distended. Normal active bowel sounds MUSCULOSKELETAL: 2-3 + edema. NEURO: Alert & Oriented. No focal deficits. - Urinary Catheter Management Indwelling Urethral Catheter Cath placed during this visit: yes, but has since been removed by the nurse Reason for continuing: Decision to DC catheter Insertion date: 05/28/18 Insertion time: 13:30 Removal date: 05/29/18 Removal time: 16:15 Assessment and Plan - Assessment (1) RADHA (acute kidney injury) Code(s): N17.9 - Acute kidney failure, unspecified Status: Acute Plan: He has underlying CKD, baseline creatinine was 1.5-1.6 earlier this year. RADHA is due to rhabdomyolysis. Dialysis initiated on 05/27. Continue to monitor urine output. He has significant proteinuria. Serologies negative. CPK had improved. Avoid nephrotoxic agents. Urine output may be improving. Continue diuresis. Fluid restriction advised. Watch for renal recovery. Dialysis tomorrow. (2) Metabolic acidosis Code(s): E87.2 - Acidosis Status: Acute Plan: Due to renal failure Improved. (3) ETOH abuse Code(s): F10.10 - Alcohol abuse, uncomplicated Status: Acute Plan: Cessation has been advised. (4) Respiratory failure Code(s): J96.90 - Respiratory failure, unspecified, unspecified whether with hypoxia or hypercapnia Status: Acute Plan: resolved.
--- NOTE | 2018-06-13 13:40 | P.PNIM ---
Subjective Interval history: Mr. Gentile was afebrile with stable vital signs overnight. Discussed with nursing staff; patient reported increased pain in general today. Patient reports some generalized pain today which he states is sometimes worse when there is a delay in getting his medications. Patient has urinated more [ 500ml output per EMR review]. No chest pain, shortness of breath, abdominal pain , or abnormal bowel movements. Physical Exam Vital signs: Vital Signs 06/12/18 15:48 06/12/18 20:00 06/13/18 00:00 Temperature 98.2 F 97.7 F 98.1 F Pulse Rate 95 H 90 82 Respiratory Rate 20 18 18 Blood Pressure 145/70 H 109/57 L 160/72 H Pulse Oximetry 100 97 97 06/13/18 04:00 06/13/18 07:46 06/13/18 09:37 Temperature 97.5 F L 97.9 F Pulse Rate 95 H 77 Respiratory Rate 18 20 Blood Pressure 92/64 L 121/58 L Pulse Oximetry 97 99 98 06/13/18 11:51 Temperature 97.4 F L Pulse Rate 93 H Respiratory Rate 20 Blood Pressure 145/66 H Pulse Oximetry 99 Intake & Output 06/12/18 06/13/18 06/13/18 18:59 06:59 18:59 Intake Total 1500 / 1500 Output Total 400 / 400 Balance 1100 / 1100 Weight 100 kg Intake: Oral 1500 / 1500 Output: Urine 400 / 400 Other: # Voids 2 # Bowel Movements 1 Narrative: GENERAL: no apparent distress. SKIN: rash not inspected today; reportedly improving CARDIOVASCULAR: Normal rate and regular rhythm without murmurs. Grossly normal perfusion RESPIRATORY: CTAB; normal rate GASTROINTESTINAL: Abdomen soft, non-tender, non-distended. Normal active bowel sounds MUSCULOSKELETAL: Extremities with increased LE edema. Grossly normal motor function and ROM NEURO: Alert & Oriented. Grossly normal CN. Grossly normal peripheral motor/ sensory function PSYCH: Patient somewhat anxious - Urinary Catheter Management Indwelling Urethral Catheter Cath placed during this visit: yes, but has since been removed by the nurse Reason for continuing: Decision to DC catheter Insertion date: 05/28/18 Insertion time: 13:30 Removal date: 05/29/18 Removal time: 16:15 Results - Labs CBC & Chem 7: 06/13/18 05:29 06/13/18 05:29 Laboratory Results - last 24 hr 06/12/18 06/12/18 06/12/18 16:16 20:56 21:57 WBC RBC Hgb Hct MCV MCH MCHC RDW Plt Count MPV Prelim Diff (Auto) Neut % (Auto) Lymph % (Auto) [place] % (Auto) Eos % (Auto) Baso % (Auto) Neut # (Auto) Lymph # (Auto) [place] # (Auto) Eos # (Auto) Baso # (Auto) WBC Differential Seg Neuts % (Manual) Band Neuts % (Manual) Lymphocytes % (Manual) Monocytes % (Manual) Eosinophils % (Manual) Basophils % (Manual) Metamyelocytes % (Man) Myelocytes % (Man) Abs Neuts (Manual) Differential Comment Platelet Estimate Platelet Morphology Sodium 139 Potassium 4.6 Chloride 97 L Carbon Dioxide 28.0 Anion Gap 14 BUN 49 H Creatinine 8.12 H Estimated GFR 7 L POC Glucose 122 H 129 H Random Glucose 105 Calcium 8.8 Phosphorus 6.2 H Total Bilirubin AST ALT Alkaline Phosphatase Total Creatine Kinase Total Protein Albumin 2.8 L 06/12/18 06/13/18 06/13/18 23:15 05:29 05:29 WBC 6.6 RBC 2.21 L Hgb 8.2 L Hct 24.9 L MCV 112.9 H MCH 37.1 H MCHC 32.9 RDW 19.1 H Plt Count 196 MPV 9.1 Prelim Diff (Auto) Slide review pending Neut % (Auto) 52.1 Lymph % (Auto) 17.0 [place] % (Auto) 7.5 Eos % (Auto) 22.1 H Baso % (Auto) 1.3 Neut # (Auto) 3.5 Lymph # (Auto) 1.1 [place] # (Auto) 0.5 Eos # (Auto) 1.5 H Baso # (Auto) 0.1 WBC Differential Manual diff final Seg Neuts % (Manual) 48 Band Neuts % (Manual) 2 Lymphocytes % (Manual) 12 Monocytes % (Manual) 10 H Eosinophils % (Manual) 25 H Basophils % (Manual) 1 Metamyelocytes % (Man) 1 Myelocytes % (Man) 1 H Abs Neuts (Manual) 3.4 Differential Comment . Platelet Estimate Normal Platelet Morphology Normal Sodium 136 Potassium 4.4 Chloride 96 L Carbon Dioxide 27.0 Anion Gap 13 BUN 58 H Creatinine 8.76 H Estimated GFR 6 L POC Glucose 130 H Random Glucose 85 Calcium 8.7 Phosphorus 6.4 H Total Bilirubin AST ALT Alkaline Phosphatase Total Creatine Kinase Total Protein Albumin 2.9 L 06/13/18 06/13/18 06/13/18 05:29 05:36 11:05 WBC RBC Hgb Hct MCV MCH MCHC RDW Plt Count MPV Prelim Diff (Auto) Neut % (Auto) Lymph % (Auto) [place] % (Auto) Eos % (Auto) Baso % (Auto) Neut # (Auto) Lymph # (Auto) [place] # (Auto) Eos # (Auto) Baso # (Auto) WBC Differential Seg Neuts % (Manual) Band Neuts % (Manual) Lymphocytes % (Manual) Monocytes % (Manual) Eosinophils % (Manual) Basophils % (Manual) Metamyelocytes % (Man) Myelocytes % (Man) Abs Neuts (Manual) Differential Comment Platelet Estimate Platelet Morphology Sodium 137 Potassium 4.4 Chloride 96 L Carbon Dioxide 27.8 Anion Gap 13 BUN 58 H Creatinine 8.78 H Estimated GFR 6 L POC Glucose 113 H 125 H Random Glucose 83 Calcium 9.3 Phosphorus Total Bilirubin 1.1 H AST 51 H ALT 60 Alkaline Phosphatase 195 H Total Creatine Kinase 172 Total Protein 7.0 Albumin 2.9 L - Procedures HD CATHETER AND INTUBATION AND EXTUBATION AND MECHANICAL VENTILATION AND HD MULTIPLE TIMES Assessment and Plan - Assessment (1) RADHA (acute kidney injury) Code(s): N17.9 - Acute kidney failure, unspecified Status: Acute (2) Acute renal failure Code(s): N17.9 - Acute kidney failure, unspecified Status: Acute (3) Transaminitis Code(s): R74.0 - Nonspecific elevation of levels of transaminase and lactic acid dehydrogenase [LDH] Status: Acute (4) Alcohol abuse Code(s): F10.10 - Alcohol abuse, uncomplicated Status: Acute (5) Rhabdomyolysis due to statin therapy Code(s): M62.82 - Rhabdomyolysis Status: Acute (6) NSTEMI (non-ST elevated myocardial infarction) Code(s): I21.4 - Non-ST elevation (NSTEMI) myocardial infarction Status: Acute - Plan 53-year-old male with acute hypoxic and hypercarbic respiratory failure and acute severe metabolic encephalopathy with associated multiorgan failure including renal failure and liver failure. Patient initially required intubation /ICU care; he has since stabilized and transferred to hospitalist service: Renal Acute renal failure secondary to rhabdomyolysis from statin. No obstruction. Significant proteinuria. Serology negative. Mild CKD at baseline prior to acute injury. Dialysis started 05/27 Cr: 5.23 (05/26)-> 8.34 (06/11) -dialysis -> 7.1 -> 8.1 -> 8.78 (06/13) -Nephrology consulted -Continue dialysis -s/p dialysis 06/11; 3L removed -Plan for dialysis tomorrow -monitor urine output -improved, 500ml in last day -hold lisinopril, other nephrotoxins Respiratory Acute hypoxic and hypercarbic respiratory failure: Status post intubation and extubation. Echo with EF 50%; suspected failure from ARF - Supplemental oxygen as needed. - Breathing treatments as needed. -Dialysis as below Cardiovascular Elevated troponin Atrial fibrillation Impression: Cardiology consulted. Echo- EF 50%. [id number] 1. Determined anticoagulation risk high for multiple risks -Continue Plavix -Continue to monitor labs/platelet count Statin induced rhabdomyolysis -Ongoing hemodialysis as above. -Continue to trend CK levels. Alcohol dependence: - Off CIWA protocol. - No signs of withdrawal currently Acute liver failure Impression: Downtrending LFT's. Transaminases >1000 05/26 ----> less than 100 . - Follow LFTs. -Will stop lactulose (Ammonia <10 06/04) Acute diverticulitis/rectal pain Impression: 05/26 A/P CT with sigmoid diverticulitis. no reported recent symptoms. Cipro/Flagyl stopped -Continue to monitor Rash: Probable drug reaction: Cipro and Flagyl previously discontinued. Benadryl as needed. Continue Zyrtec and Pepcid. Tobacco dependence -Nicotine patch given DVT PPX Heparin 5K U q8hrs Code Status: Full code Discharge Planning: Pending renal improvement/Nephrology recommendations (2) Acute renal failure Qualifiers: Acute renal failure type: unspecified Qualified Code(s): N17.9 - Acute kidney failure, unspecified
[2018-06-13] MEDS ORDERED: HYDROmorphone PF Inj 2 MG/ML Vial IV.PUSH ONE (14:15)
--- NOTE | 2018-06-13 17:42 | P.PNCA ---
Subjective Interval history: denies chest pain, u/o improving Medications and Allergies Active Medications: Active Medications Acetaminophen (Tylenol) 650 mg PO Q4H PRN PRN Reason: Temp > 100.4 Acetaminophen (Tylenol) 650 mg PO UNSCH PRN PRN Reason: SEE LABEL COMMENTS Acetaminophen (Tylenol) 500 mg PO Q6H PRN PRN Reason: PAIN 1-6 Al Hydroxide/Mg Hydroxide (Milk Of Magnesia Liq) 30 ml PO Q12H PRN PRN Reason: Mild Constipation Albuterol (Duoneb Neb (Prn)) 1 ampul NEB Q2HR NEB PRN PRN Reason: WHEEZING Bisacodyl (Dulcolax Supp) 10 mg RECTAL DAILY PRN PRN Reason: if no BM in last 24h Last Admin: 06/10/18 05:49 Dose: 10 mg Bumetanide (Bumex Inj) 2 mg IV.PUSH BID@0900,1800 [facility] Last Admin: 06/13/18 17:39 Dose: 2 mg Calcium Acetate (Phoslo) 667 mg PO TID [facility] Last Admin: 06/13/18 17:39 Dose: 667 mg Cetirizine HCl (Zyrtec) 10 mg PO BID [facility] Last Admin: 06/13/18 08:14 Dose: 10 mg Chlorhexidine Gluconate (Peridex 0.12% Oral Kit) 15 ml OROPHARYNG BID@0800, 2000 [facility] Last Admin: 06/13/18 08:11 Dose: Not Given Clopidogrel Bisulfate (Plavix) 75 mg PO DAILY [facility] Last Admin: 06/13/18 08:14 Dose: 75 mg Dextrose (D50w Syringe) 50 ml IV.PUSH UNSCH PRN PRN Reason: PER HYPOGLYCEMIA PROTOCOL Diphenhydramine HCl (Benadryl) 25 mg PO Q4H PRN PRN Reason: ITCHING Last Admin: 06/13/18 12:06 Dose: 25 mg Diphenhydramine HCl (Benadryl) 50 mg PO Q6H PRN PRN Reason: ITCHING Last Admin: 06/10/18 14:44 Dose: 50 mg Famotidine (Pepcid) 10 mg PO BID [facility] Last Admin: 06/13/18 08:14 Dose: 10 mg Gelatin (Gelfoam 12 Mm/7 Mm Topical) 1 foam TOPICAL PRN PRN PRN Reason: help stop bleeding from site Gentamicin Sulfate (Gentamicin Inj) 20 mg OTHER WITH DIALYSIS PRN PRN Reason: Dwell Gentamycin Lock Last Admin: 06/11/18 10:43 Dose: 20 mg Glucagon (Glucagon Inj) 1 mg IM ONCE PRN PRN Reason: blood sugar < 60, no iv access Haloperidol Lactate (Haldol Inj) 5 mg IV.PUSH Q15M PRN PRN Reason: for severe agitation Heparin Sodium (Porcine) (Heparin Inj) 5,000 units SQ Q8HR [facility] Last Admin: 06/13/18 14:14 Dose: 5,000 units Heparin Sodium (Porcine) (Heparin Inj) 8,000 units OTHER WITH DIALYSIS PRN PRN Reason: for machine prime Last Admin: 06/04/18 12:39 Dose: 3,500 units Heparin Sodium (Porcine) (Heparin Inj) 1,000 units OTHER WITH DIALYSIS PRN PRN Reason: Dwell Heparin to Fill Catheter Last Admin: 06/11/18 10:42 Dose: 1,000 units Hydrocortisone Acetate (Hemorrhoidal Hc Supp) 25 mg RECTAL TID [facility] Last Admin: 06/13/18 17:39 Dose: 25 mg Hydrocortisone Acetate (Hydrocortisone 1% Cream) 1 applicatio TOPICAL TID PRN PRN Reason: RASH Last Admin: 06/11/18 08:56 Dose: 1 applicatio Albumin Human (Flexbumin 25% Inj) 100 mls @ 60 mls/hr IV.SIG WITH DIALYSIS PRN PRN Reason: hypotension / volume replace Last Infusion: 06/05/18 08:46 Dose: Infused Sodium Chloride (Ns Inj) 1,000 mls @ 0 mls/hr OTHER .Q0M PRN PRN Reason: for prime and rinse back Sodium Chloride (Ns Inj) 1,000 mls @ 200 mls/hr OTHER .Q5H PRN PRN Reason: for dialyzer flush PRN Sodium Chloride (Ns Inj) 1,000 mls @ 0 mls/hr IV.CONT .Q0M PRN PRN Reason: hypotension / volume replace Vasopressin 40 unit/ Dextrose 100 mls @ 6 mls/hr IV.CONT CONT WEI; Protocol Last Infusion: 06/01/18 19:33 Dose: Infused Insulin Human Regular (Novolin R Inj) 1 units SQ Q6HR WEI; Protocol Last Admin: 06/13/18 17:29 Dose: Not Given Lactulose (Lactulose Liq) 30 ml PO BID [facility] Last Admin: 06/13/18 08:14 Dose: 30 ml Nicotine (Habitrol 14 Mg Patch.24 Hr) 1 patch T-DERMAL DAILY [facility] Last Admin: 06/13/18 08:15 Dose: 1 patch Nitroglycerin (Nitrostat Sl) 0.4 mg SL Q5M PRN PRN Reason: CHEST PAIN Ondansetron HCl (Zofran Inj) 4 mg IV.PUSH Q6H PRN PRN Reason: NAUSEA OR VOMITING Last Admin: 05/30/18 20:46 Dose: 4 mg Ondansetron HCl (Zofran Inj) 4 mg IV.PUSH UNSCH PRN PRN Reason: NAUSEA OR VOMITING Oxycodone/Acetaminophen (Percocet 10/325 Mg) 1 tab PO Q4H PRN PRN Reason: PAIN SCALE 7 TO 10 SEVERE Last Admin: 06/13/18 15:01 Dose: 1 tab Pantoprazole Sodium (Protonix) 40 mg PO DAILY [facility] Last Admin: 06/13/18 08:15 Dose: 40 mg Patch Removal (Remove Old Patch) 1 each T-DERMAL DAILY [facility] Last Admin: 06/13/18 08:15 Dose: 1 each Polyethylene Glycol (Miralax) 17 gm PO BID [facility] Last Admin: 06/13/18 08:14 Dose: 17 gm Senna/Docusate Sodium (Najma-Colace) 1 tab PO BID [facility] Last Admin: 06/13/18 08:14 Dose: 1 tab Sennosides (Senokot) 17.2 mg PO Q12H PRN PRN Reason: Moderate Constipation Sodium Chloride (Ns Flush) 5 ml IV.FLUSH PRN PRN PRN Reason: flush each lumen during HD Sodium Chloride (Ns Flush) 2 ml IV.FLUSH UNSCH PRN PRN Reason: FLUSH AFTER USING IV ACCESS Terbutaline Sulfate (Brethine Inj) 1 mg SQ UNSCH PRN PRN Reason: For Extravasation Thiamine HCl (Vitamin B1) 100 mg PO DAILY [facility] Last Admin: 06/13/18 08:14 Dose: 100 mg Zolpidem Tartrate (Ambien) 5 mg PO HS PRN PRN Reason: INSOMNIA Last Admin: 06/01/18 01:51 Dose: 5 mg Allergies Allergy/AdvReac Type Severity Reaction Status Date / Time [id number] Reductase AdvReac Urinary Verified 06/05/18 16:04 Inhibitor Freq (Inc/Dec) Home Medications Medication Instructions Recorded Confirmed Type atorvastatin 80 mg PO DAILY 04/30/18 05/26/18 History lisinopril 10 mg PO DAILY 04/30/18 05/26/18 History Physical Exam Vital signs: Vital Signs 06/12/18 20:00 06/13/18 00:00 06/13/18 04:00 Temperature 97.7 F 98.1 F 97.5 F L Pulse Rate 90 82 95 H Respiratory Rate 18 18 18 Blood Pressure 109/57 L 160/72 H 92/64 L Pulse Oximetry 97 97 97 06/13/18 07:46 06/13/18 09:37 06/13/18 11:51 Temperature 97.9 F 97.4 F L Pulse Rate 77 93 H Respiratory Rate 20 20 Blood Pressure 121/58 L 145/66 H Pulse Oximetry 99 98 99 06/13/18 16:00 Temperature 97.9 F Pulse Rate 91 H Respiratory Rate 18 Blood Pressure 138/69 Pulse Oximetry 99 Intake & Output 06/12/18 06/13/18 06/13/18 18:59 06:59 18:59 Intake Total 1500 / 1500 Output Total 400 / 400 500 / 500 Balance 1100 / 1100 -500 / -500 Weight 100 kg Intake: Oral 1500 / 1500 Output: Urine 400 / 400 500 / 500 Other: # Voids 2 # Bowel Movements 1 - Urinary Catheter Management Indwelling Urethral Catheter Cath placed during this visit: yes, but has since been removed by the nurse Reason for continuing: Decision to DC catheter Insertion date: 05/28/18 Insertion time: 13:30 Removal date: 05/29/18 Removal time: 16:15 Results 06/13/18 05:29 06/13/18 05:29 Cardiac Enzymes 06/13/18 Range/Units 05:29 AST 51 H (15-37) U/L CBC 06/13/18 Range/Units 05:29 WBC 6.6 (4.0-11.0) th/mm3 RBC 2.21 L (4.50-5.90) mil/mm3 Hgb 8.2 L (13.0-17.0) gm/dL Hct 24.9 L (39.0-51.0) % Plt Count 196 (150-450) th/mm3 Neut # (Auto) 3.5 (1.8-7.7) th/mm3 Lymph # (Auto) 1.1 (1.0-4.8) th/mm3 [place] # (Auto) 0.5 (0.0-0.9) th/mm3 Eos # (Auto) 1.5 H (0.0-0.4) th/mm3 Baso # (Auto) 0.1 (0.0-0.2) th/mm3 Comprehensive Metabolic Panel 06/12/18 06/12/18 06/13/18 Range/Units 05:04 21:57 05:29 Sodium 137 139 136 (136-145) meq/L Potassium 4.2 4.6 4.4 (3.5-5.1) meq/L Chloride 97 L 97 L 96 L (98-107) meq/L Carbon Dioxide 28.5 28.0 27.0 (21.0-32.0) meq/L BUN 45 H 49 H 58 H (7-18) mg/dL Creatinine 7.10 H 8.12 H 8.76 H (0.60-1.30) mg/dL Calcium 9.1 8.8 8.7 (8.5-10.1) mg/dL AST (15-37) U/L ALT (12-78) U/L Alkaline Phosphatase (45-117) U/L Total Protein (6.4-8.2) g/dL Albumin 2.8 L 2.8 L 2.9 L (3.4-5.0) g/dL 06/13/18 Range/Units 05:29 Sodium 137 (136-145) meq/L Potassium 4.4 (3.5-5.1) meq/L Chloride 96 L (98-107) meq/L Carbon Dioxide 27.8 (21.0-32.0) meq/L BUN 58 H (7-18) mg/dL Creatinine 8.78 H (0.60-1.30) mg/dL Calcium 9.3 (8.5-10.1) mg/dL AST 51 H (15-37) U/L ALT 60 (12-78) U/L Alkaline Phosphatase 195 H (45-117) U/L Total Protein 7.0 (6.4-8.2) g/dL Albumin 2.9 L (3.4-5.0) g/dL Intake and Output 09/23/18 09/23/18 09/23/18 06:59 14:59 22:59 Output Total 500 / 500 Balance -500 / -500 Output: Urine 500 / 500 Other: # Voids 2 Weight 100 kg Assessment and Plan - Assessment (1) Thrombocytopenia Code(s): D69.6 - Thrombocytopenia, unspecified Status: Acute (2) Anemia Code(s): D64.9 - Anemia, unspecified Status: Acute (3) Leukemia Code(s): C95.90 - Leukemia, unspecified not having achieved remission Status: Acute (4) NSTEMI (non-ST elevated myocardial infarction) Code(s): I21.4 - Non-ST elevation (NSTEMI) myocardial infarction Status: Acute (5) Tobacco abuse Code(s): Z72.0 - Tobacco use Status: Acute (6) RADHA (acute kidney injury) Code(s): N17.9 - Acute kidney failure, unspecified Status: Acute (7) ETOH abuse Code(s): F10.10 - Alcohol abuse, uncomplicated Status: Acute (8) Rectal pain Code(s): K62.89 - Other specified diseases of anus and rectum Status: Deleted (9) Metabolic acidosis Code(s): E87.2 - Acidosis Status: Acute (10) Diverticulitis Code(s): K57.92 - Diverticulitis of intestine, part unspecified, without perforation or abscess without bleeding Status: Acute (11) Acute renal failure Code(s): N17.9 - Acute kidney failure, unspecified Status: Acute (12) Transaminitis Code(s): R74.0 - Nonspecific elevation of levels of transaminase and lactic acid dehydrogenase [LDH] Status: Acute (13) Alcohol abuse Code(s): F10.10 - Alcohol abuse, uncomplicated Status: Acute - Plan 1.) NSTEMI - suspect trop elevation due to arf which appears to be due to rhabdomyolysis, he is assymptomatic 2.) Afib - 2d echo ef=50%, [id number] score=1, male gender, ac held due to unstable platelet count, hgb and liver function, continue to f/u trends in lfts , hgb, plt ct; rash started @ time aspirin 81 mg qd started 06/01/18, will dc aspirin and start plavix 75 mg qd, 06/05/18, no improvement in rash, i explained to patient that if due to aspirin may take several days for plasma levels of aspirin to decrease and to see improvement if rash is due to aspirin, ; not good candidate for ac with noac or coumadin due to alcohol abuse, liver failure , fall risk and unstable hgb and platelet count 3.) Respiratory failure - ef=50% on echo, assymptomatic 05/27/18, possibly due to volume overload from arf, improved with dialysis 4.) Rash - improved (11) Acute renal failure Qualifiers: Acute renal failure type: unspecified Qualified Code(s): N17.9 - Acute kidney failure, unspecified
[2018-06-14] MEDS: Oral Hygiene Kit OROPHARYNG SCH ×4 (01:13→15:58)
[2018-06-14] MEDS: oxyCODONE/Acetaminophen 10/325 Tablet PO PRN ×6 (04:30→23:55)
[2018-06-14 05:40] LABS: Baso # (Auto) 0.1 th/mm3 (0.0-0.2); Baso % (Auto) 1.2 % (0.0-2.0); Eos # (Auto) 1.6 th/mm3 (0.0-0.4); Eos % (Auto) 20.8 % (0.0-4.0); Hematocrit 25.2 % (39.0-51.0); Hemoglobin 8.5 gm/dL (13.0-17.0); Lymph # (Auto) 1.1 th/mm3 (1.0-4.8); Lymph % (Auto) 14.7 % (9.0-44.0); Mean Corpuscular HGB Conc 33.7 % (32.0-36.0); Mean Corpuscular Hemoglobin 37.6 pg (27.0-34.0); Mean Corpuscular Volume 111.7 fL (80.0-100.0); Mean Platelet Volume 8.9 fL (7.0-11.0); Mono # (Auto) 0.7 th/mm3 (0.0-0.9); Mono % (Auto) 9.7 % (0.0-8.0); Neut # (Auto) 4.1 th/mm3 (1.8-7.7); Neut % (Auto) 53.6 % (16.0-70.0); Platelet Count 197 th/mm3 (150-450); Red Blood Count 2.25 mil/mm3 (4.50-5.90); Red Cell Distribution Width 18.4 % (11.6-17.2); White Blood Count 7.7 th/mm3 (4.0-11.0)
[2018-06-14] MEDS: Heparin - SQ 10,000 UNITS/ML Vial SQ SCH ×3 (06:09→23:51)
[2018-06-14 06:12] LABS: Alanine Aminotransferase 54 U/L (12-78); Albumin 2.9 g/dL (3.4-5.0); Alkaline Phosphatase 183 U/L (45-117); Anion Gap 14 meq/L (5-15); Aspartate Aminotransferase 47 U/L (15-37); Blood Urea Nitrogen 68 mg/dL (7-18); Carbon Dioxide 24.3 meq/L (21.0-32.0); Chloride 97 meq/L (98-107); Glomerular Filtration Rate 6 mL/min (>89); Glucose,Random 83 mg/dL (74-106); Phosphorus 7.4 mg/dL (2.5-4.9); Sodium 135 meq/L (136-145); Total Protein 6.9 g/dL (6.4-8.2)
[2018-06-14] MEDS: Albumin Human 25% Inj 100 ML IV.SIG PRN ×2 (08:49→08:51)
--- NOTE | 2018-06-14 09:56 | P.PNNP ---
Subjective Interval history: Patient to be dialyzed today. Urine output has improved. Physical Exam Vital signs: Vital Signs 06/13/18 11:51 06/13/18 16:00 06/13/18 20:00 Temperature 97.4 F L 97.9 F 98.1 F Pulse Rate 93 H 91 H 86 Respiratory Rate 20 18 18 Blood Pressure 145/66 H 138/69 128/61 Pulse Oximetry 99 99 98 06/14/18 00:00 Temperature 98 F Pulse Rate 18 L Respiratory Rate 18 Blood Pressure 137/64 Pulse Oximetry 97 Intake & Output 06/13/18 06/14/18 06/14/18 18:59 06:59 18:59 Intake Total 1450 / 1450 200 / 200 Output Total 900 / 900 Balance 550 / 550 200 / 200 Weight 100 kg Intake: IV 200 / 200 Flexbumin 25% Inj 100 ML @ 60 200 / 200 mls/hr IV.SIG WITH DIALYSIS PRN Rx#:[id number] Oral 1450 / 1450 Output: Urine 900 / 900 Other: # Voids 4 # Bowel Movements 3 Narrative: GENERAL: no apparent distress. SKIN: rash not inspected today; reportedly improving CARDIOVASCULAR: Normal rate and regular rhythm without murmurs. Grossly normal perfusion RESPIRATORY: CTAB; normal rate GASTROINTESTINAL: Abdomen soft, non-tender, non-distended. Normal active bowel sounds MUSCULOSKELETAL: edema of the lower extremities. NEURO: Alert & Oriented. Grossly normal CN. Grossly normal peripheral motor/ sensory function PSYCH: Patient somewhat anxious - Urinary Catheter Management Indwelling Urethral Catheter Cath placed during this visit: yes, but has since been removed by the nurse Reason for continuing: Decision to DC catheter Insertion date: 05/28/18 Insertion time: 13:30 Removal date: 05/29/18 Removal time: 16:15 Assessment and Plan - Assessment (1) RADHA (acute kidney injury) Code(s): N17.9 - Acute kidney failure, unspecified Status: Acute Plan: He has underlying CKD, baseline creatinine was 1.5-1.6 earlier this year. RADHA is due to rhabdomyolysis. Dialysis initiated on 05/27. Continue to monitor urine output. He has significant proteinuria. Serologies negative. CPK had improved. Avoid nephrotoxic agents. Urine output may be improving. Continue diuresis. Fluid restriction advised. Watch for renal recovery. Dialysis today. (2) Metabolic acidosis Code(s): E87.2 - Acidosis Status: Acute Plan: Due to renal failure Improved. (3) ETOH abuse Code(s): F10.10 - Alcohol abuse, uncomplicated Status: Acute Plan: Cessation has been advised. (4) Respiratory failure Code(s): J96.90 - Respiratory failure, unspecified, unspecified whether with hypoxia or hypercapnia Status: Acute Plan: resolved.
[2018-06-14] MEDS: Chlorhexidine 0.12% Oral Kit 15 ML UDC OROPHARYNG SCH ×2 (10:43→20:07)
[2018-06-14] MEDS: Hydrocortisone Acetate 25 MG Supp RECTAL SCH ×3 (12:25→17:16)
[2018-06-14] MEDS: Calcium Acetate 667 MG Capsule PO SCH ×3 (12:26→17:16)
[2018-06-14] MEDS: Senna/Docusate Sodium 8.6/50 MG Tablet PO SCH ×2 (12:28→20:02)
[2018-06-14] MEDS: Famotidine 20 MG Tablet PO SCH ×2 (12:28→20:07)
[2018-06-14] MEDS: Polyethylene Glycol 3350 17 GM Packet PO SCH ×2 (12:29→20:01)
--- NOTE | 2018-06-14 12:31 | P.PNIM ---
Subjective Interval history: Mr. Gentile was afebrile with stable VS overnight; patient seen after dialysis today. 900ml urine output overnight. Patient reports that he is doing ok but is anxious about his diet; he plans to decrease his fluid consumption further to recommended restrictions. Patient otherwise states he has been doing well; no reported chest pain, shortness of breath, or abnormal BM. He has continued improved urine output. Physical Exam Vital signs: Vital Signs 06/13/18 16:00 06/13/18 20:00 06/14/18 00:00 Temperature 97.9 F 98.1 F 98 F Pulse Rate 91 H 86 18 L Respiratory Rate 18 18 18 Blood Pressure 138/69 128/61 137/64 Pulse Oximetry 99 98 97 06/14/18 08:00 Temperature 98.8 F Pulse Rate 140 H Respiratory Rate 21 Blood Pressure 118/60 Pulse Oximetry 99 Intake & Output 06/13/18 06/14/18 06/14/18 18:59 06:59 18:59 Intake Total 1450 / 1450 200 / 200 Output Total 900 / 900 4000 / 4000 Balance 550 / 550 -3800 / -3800 Weight 100 kg Intake: IV 200 / 200 Flexbumin 25% Inj 100 ML @ 60 200 / 200 mls/hr IV.SIG WITH DIALYSIS PRN Rx#:[id number] Oral 1450 / 1450 Output: Urine 900 / 900 Hemodialysis Amount 4000 / 4000 Other: # Voids 4 # Bowel Movements 3 Narrative: GENERAL: no apparent distress. SKIN: rash not inspected today; reportedly improving CARDIOVASCULAR: Normal rate and regular rhythm without murmurs. Grossly normal perfusion RESPIRATORY: CTAB; normal rate GASTROINTESTINAL: Abdomen soft, non-tender, non-distended. Normal active bowel sounds MUSCULOSKELETAL: Continued LE edema. Grossly normal motor function and ROM NEURO: Alert & Oriented. Grossly normal CN. Grossly normal peripheral motor/ sensory function PSYCH: anxious - Urinary Catheter Management Indwelling Urethral Catheter Cath placed during this visit: yes, but has since been removed by the nurse Reason for continuing: Decision to DC catheter Insertion date: 05/28/18 Insertion time: 13:30 Removal date: 05/29/18 Removal time: 16:15 Results - Labs CBC & Chem 7: 06/14/18 03:33 06/14/18 03:33 Laboratory Results - last 24 hr 06/13/18 06/13/18 06/14/18 16:16 23:54 03:33 WBC 7.7 RBC 2.25 L Hgb 8.5 L Hct 25.2 L MCV 111.7 H MCH 37.6 H MCHC 33.7 RDW 18.4 H Plt Count 197 MPV 8.9 Prelim Diff (Auto) Slide review pending Neut % (Auto) 53.6 Lymph % (Auto) 14.7 [place] % (Auto) 9.7 H Eos % (Auto) 20.8 H Baso % (Auto) 1.2 Neut # (Auto) 4.1 Lymph # (Auto) 1.1 [place] # (Auto) 0.7 Eos # (Auto) 1.6 H Baso # (Auto) 0.1 WBC Differential . Diff Scan Auto diff confirmed Differential Comment . Sodium Potassium Chloride Carbon Dioxide Anion Gap BUN Creatinine Estimated GFR POC Glucose 108 109 Random Glucose Calcium Phosphorus Total Bilirubin AST ALT Alkaline Phosphatase Total Protein Albumin 06/14/18 06/14/18 03:33 06:08 WBC RBC Hgb Hct MCV MCH MCHC RDW Plt Count MPV Prelim Diff (Auto) Neut % (Auto) Lymph % (Auto) [place] % (Auto) Eos % (Auto) Baso % (Auto) Neut # (Auto) Lymph # (Auto) [place] # (Auto) Eos # (Auto) Baso # (Auto) WBC Differential Diff Scan Differential Comment Sodium 135 L Potassium 5.0 Chloride 97 L Carbon Dioxide 24.3 Anion Gap 14 BUN 68 H Creatinine 9.83 H Estimated GFR 6 L POC Glucose 87 Random Glucose 83 Calcium 9.0 Phosphorus 7.4 H D Total Bilirubin 1.2 H AST 47 H ALT 54 Alkaline Phosphatase 183 H Total Protein 6.9 Albumin 2.9 L - Procedures HD CATHETER AND INTUBATION AND EXTUBATION AND MECHANICAL VENTILATION AND HD MULTIPLE TIMES Assessment and Plan - Assessment (1) RADHA (acute kidney injury) Code(s): N17.9 - Acute kidney failure, unspecified Status: Acute (2) Acute renal failure Code(s): N17.9 - Acute kidney failure, unspecified Status: Acute (3) Transaminitis Code(s): R74.0 - Nonspecific elevation of levels of transaminase and lactic acid dehydrogenase [LDH] Status: Acute (4) Alcohol abuse Code(s): F10.10 - Alcohol abuse, uncomplicated Status: Acute (5) Rhabdomyolysis due to statin therapy Code(s): M62.82 - Rhabdomyolysis Status: Acute (6) NSTEMI (non-ST elevated myocardial infarction) Code(s): I21.4 - Non-ST elevation (NSTEMI) myocardial infarction Status: Acute - Plan 53-year-old male with acute hypoxic and hypercarbic respiratory failure and acute severe metabolic encephalopathy with associated multiorgan failure including renal failure and liver failure. Patient initially required intubation /ICU care; he has since stabilized and transferred to hospitalist service: Renal Acute renal failure secondary to rhabdomyolysis from statin. No obstruction. Significant proteinuria. Serology negative. Mild CKD at baseline prior to acute injury. Dialysis started 05/27 Cr: 5.23 (05/26)-> 8.34 (06/11) -dialysis -> 7.1 -> 8.1 -> 8.78 -> 9.83 (06/14) -Nephrology consulted -Continue dialysis -s/p dialysis today; 4L removed -monitor urine output -improved, 900ml yesterday -hold Lisinopril, other nephrotoxins Respiratory Acute hypoxic and hypercarbic respiratory failure: Status post intubation and extubation. Echo with EF 50%; suspected failure from ARF - Supplemental oxygen as needed. - Breathing treatments as needed. -Dialysis as below Cardiovascular Elevated troponin Atrial fibrillation Impression: Cardiology consulted. Echo- EF 50%. [id number] 1. Determined anticoagulation risk high for multiple risks -Continue Plavix -Continue to monitor labs/platelet count Statin induced rhabdomyolysis -Ongoing hemodialysis as above. -Continue to trend CK levels. Alcohol dependence: - Off CIUT protocol. - No signs of withdrawal currently Acute liver failure Impression: Downtrending LFT's. Transaminases >1000 05/26 ----> less than 100 . - Follow LFTs. -s/p lactulose (Ammonia <10 06/04) Acute diverticulitis/rectal pain Impression: 05/26 A/P CT with sigmoid diverticulitis. no reported recent symptoms. Cipro/Flagyl stopped -Continue to monitor Rash: Probable drug reaction: Cipro and Flagyl previously discontinued. Benadryl as needed. Continue Zyrtec and Pepcid. Tobacco dependence -Nicotine patch given DVT PPX Heparin 5K U q8hrs Code Status: Full code Discharge Planning: Pending renal improvement/Nephrology recommendations (2) Acute renal failure Qualifiers: Acute renal failure type: unspecified Qualified Code(s): N17.9 - Acute kidney failure, unspecified
--- NOTE | 2018-06-14 14:52 | P.PNCA ---
Subjective Interval history: assymptomatic in nad Medications and Allergies Active Medications: Active Medications Acetaminophen (Tylenol) 650 mg PO Q4H PRN PRN Reason: Temp > 100.4 Acetaminophen (Tylenol) 650 mg PO UNSCH PRN PRN Reason: SEE LABEL COMMENTS Acetaminophen (Tylenol) 500 mg PO Q6H PRN PRN Reason: PAIN 1-6 Al Hydroxide/Mg Hydroxide (Milk Of Magnpineda Liq) 30 ml PO Q12H PRN PRN Reason: Mild Constipation Albuterol (Duoneb Neb (Prn)) 1 ampul NEB Q2HR NEB PRN PRN Reason: WHEEZING Bisacodyl (Dulcolax Supp) 10 mg RECTAL DAILY PRN PRN Reason: if no BM in last 24h Last Admin: 06/10/18 05:49 Dose: 10 mg Bumetanide (Bumex Inj) 2 mg IV.PUSH BID@0900,1800 [facility] Last Admin: 06/14/18 12:33 Dose: 2 mg Calcium Acetate (Phoslo) 667 mg PO TID [facility] Last Admin: 06/14/18 12:30 Dose: 667 mg Cetirizine HCl (Zyrtec) 10 mg PO BID [facility] Last Admin: 06/14/18 12:28 Dose: 10 mg Chlorhexidine Gluconate (Peridex 0.12% Oral Kit) 15 ml OROPHARYNG BID@0800, 2000 [facility] Last Admin: 06/14/18 10:43 Dose: Not Given Clopidogrel Bisulfate (Plavix) 75 mg PO DAILY [facility] Last Admin: 06/14/18 12:28 Dose: 75 mg Dextrose (D50w Syringe) 50 ml IV.PUSH UNSCH PRN PRN Reason: PER HYPOGLYCEMIA PROTOCOL Diphenhydramine HCl (Benadryl) 25 mg PO Q4H PRN PRN Reason: ITCHING Last Admin: 06/13/18 23:58 Dose: 25 mg Diphenhydramine HCl (Benadryl) 50 mg PO Q6H PRN PRN Reason: ITCHING Last Admin: 06/10/18 14:44 Dose: 50 mg Famotidine (Pepcid) 10 mg PO BID [facility] Last Admin: 06/14/18 12:28 Dose: 10 mg Gelatin (Gelfoam 12 Mm/7 Mm Topical) 1 foam TOPICAL PRN PRN PRN Reason: help stop bleeding from site Gentamicin Sulfate (Gentamicin Inj) 20 mg OTHER WITH DIALYSIS PRN PRN Reason: Dwell Gentamycin Lock Last Admin: 06/11/18 10:43 Dose: 20 mg Glucagon (Glucagon Inj) 1 mg IM ONCE PRN PRN Reason: blood sugar < 60, no iv access Haloperidol Lactate (Haldol Inj) 5 mg IV.PUSH Q15M PRN PRN Reason: for severe agitation Heparin Sodium (Porcine) (Heparin Inj) 5,000 units SQ Q8HR [facility] Last Admin: 06/14/18 13:43 Dose: 5,000 units Heparin Sodium (Porcine) (Heparin Inj) 8,000 units OTHER WITH DIALYSIS PRN PRN Reason: for machine prime Last Admin: 06/04/18 12:39 Dose: 3,500 units Heparin Sodium (Porcine) (Heparin Inj) 1,000 units OTHER WITH DIALYSIS PRN PRN Reason: Dwell Heparin to Fill Catheter Last Admin: 06/11/18 10:42 Dose: 1,000 units Hydrocortisone Acetate (Hemorrhoidal Hc Supp) 25 mg RECTAL TID [facility] Last Admin: 06/14/18 12:30 Dose: 25 mg Hydrocortisone Acetate (Hydrocortisone 1% Cream) 1 applicatio TOPICAL TID PRN PRN Reason: RASH Last Admin: 06/11/18 08:56 Dose: 1 applicatio Albumin Human (Flexbumin 25% Inj) 100 mls @ 60 mls/hr IV.SIG WITH DIALYSIS PRN PRN Reason: hypotension / volume replace Last Infusion: 06/14/18 08:51 Dose: Infused Sodium Chloride (Ns Inj) 1,000 mls @ 0 mls/hr OTHER .Q0M PRN PRN Reason: for prime and rinse back Sodium Chloride (Ns Inj) 1,000 mls @ 200 mls/hr OTHER .Q5H PRN PRN Reason: for dialyzer flush PRN Sodium Chloride (Ns Inj) 1,000 mls @ 0 mls/hr IV.CONT .Q0M PRN PRN Reason: hypotension / volume replace Vasopressin 40 unit/ Dextrose 100 mls @ 6 mls/hr IV.CONT CONT WEI; Protocol Last Infusion: 06/01/18 19:33 Dose: Infused Insulin Human Regular (Novolin R Inj) 1 units SQ Q6HR WEI; Protocol Last Admin: 06/14/18 12:30 Dose: Not Given Lactulose (Lactulose Liq) 30 ml PO BID [facility] Last Admin: 06/14/18 12:29 Dose: 30 ml Nicotine (Habitrol 14 Mg Patch.24 Hr) 1 patch T-DERMAL DAILY [facility] Last Admin: 06/14/18 12:29 Dose: 1 patch Nitroglycerin (Nitrostat Sl) 0.4 mg SL Q5M PRN PRN Reason: CHEST PAIN Ondansetron HCl (Zofran Inj) 4 mg IV.PUSH Q6H PRN PRN Reason: NAUSEA OR VOMITING Last Admin: 05/30/18 20:46 Dose: 4 mg Ondansetron HCl (Zofran Inj) 4 mg IV.PUSH UNSCH PRN PRN Reason: NAUSEA OR VOMITING Oxycodone/Acetaminophen (Percocet 10/325 Mg) 1 tab PO Q4H PRN PRN Reason: PAIN SCALE 7 TO 10 SEVERE Last Admin: 06/14/18 12:27 Dose: 1 tab Pantoprazole Sodium (Protonix) 40 mg PO DAILY [facility] Last Admin: 06/14/18 12:26 Dose: Not Given Patch Removal (Remove Old Patch) 1 each T-DERMAL DAILY [facility] Last Admin: 06/14/18 12:29 Dose: 1 each Polyethylene Glycol (Miralax) 17 gm PO BID [facility] Last Admin: 06/14/18 12:29 Dose: 17 gm Senna/Docusate Sodium (Najma-Colace) 1 tab PO BID [facility] Last Admin: 06/14/18 12:28 Dose: 1 tab Sennosides (Senokot) 17.2 mg PO Q12H PRN PRN Reason: Moderate Constipation Sodium Chloride (Ns Flush) 5 ml IV.FLUSH PRN PRN PRN Reason: flush each lumen during HD Sodium Chloride (Ns Flush) 2 ml IV.FLUSH UNSCH PRN PRN Reason: FLUSH AFTER USING IV ACCESS Terbutaline Sulfate (Brethine Inj) 1 mg SQ UNSCH PRN PRN Reason: For Extravasation Thiamine HCl (Vitamin B1) 100 mg PO DAILY [facility] Last Admin: 06/14/18 12:29 Dose: 100 mg Zolpidem Tartrate (Ambien) 5 mg PO HS PRN PRN Reason: INSOMNIA Last Admin: 06/01/18 01:51 Dose: 5 mg Allergies Allergy/AdvReac Type Severity Reaction Status Date / Time Kosivee-Ign-Mmh Reductase AdvReac Urinary Verified 06/05/18 16:04 Inhibitor Freq (Inc/Dec) Home Medications Medication Instructions Recorded Confirmed Type atorvastatin 80 mg PO DAILY 04/30/18 05/26/18 History lisinopril 10 mg PO DAILY 04/30/18 05/26/18 History Physical Exam Vital signs: Vital Signs 06/13/18 16:00 06/13/18 20:00 06/14/18 00:00 Temperature 97.9 F 98.1 F 98 F Pulse Rate 91 H 86 18 L Respiratory Rate 18 18 18 Blood Pressure 138/69 128/61 137/64 Pulse Oximetry 99 98 97 06/14/18 08:00 06/14/18 12:00 Temperature 98.8 F 98.2 F Pulse Rate 140 H 126 H Respiratory Rate 21 20 Blood Pressure 118/60 139/64 Pulse Oximetry 99 100 Intake & Output 06/13/18 06/14/18 06/14/18 18:59 06:59 18:59 Intake Total 1450 / 1450 200 / 200 Output Total 900 / 900 4000 / 4000 Balance 550 / 550 -3800 / -3800 Weight 100 kg Intake: IV 200 / 200 Flexbumin 25% Inj 100 ML @ 60 200 / 200 mls/hr IV.SIG WITH DIALYSIS PRN Rx#:[id number] Oral 1450 / 1450 Output: Urine 900 / 900 Hemodialysis Amount 4000 / 4000 Other: # Voids 4 # Bowel Movements 3 - Urinary Catheter Management Indwelling Urethral Catheter Cath placed during this visit: yes, but has since been removed by the nurse Reason for continuing: Decision to DC catheter Insertion date: 05/28/18 Insertion time: 13:30 Removal date: 05/29/18 Removal time: 16:15 Results 06/14/18 03:33 06/14/18 03:33 Cardiac Enzymes 06/13/18 06/14/18 Range/Units 05:29 03:33 AST 51 H 47 H (15-37) U/L CBC 06/13/18 06/14/18 Range/Units 05:29 03:33 WBC 6.6 7.7 (4.0-11.0) th/mm3 RBC 2.21 L 2.25 L (4.50-5.90) mil/mm3 Hgb 8.2 L 8.5 L (13.0-17.0) gm/dL Hct 24.9 L 25.2 L (39.0-51.0) % Plt Count 196 197 (150-450) th/mm3 Neut # (Auto) 3.5 4.1 (1.8-7.7) th/mm3 Lymph # (Auto) 1.1 1.1 (1.0-4.8) th/mm3 [place] # (Auto) 0.5 0.7 (0.0-0.9) th/mm3 Eos # (Auto) 1.5 H 1.6 H (0.0-0.4) th/mm3 Baso # (Auto) 0.1 0.1 (0.0-0.2) th/mm3 Comprehensive Metabolic Panel 06/12/18 06/13/18 06/13/18 Range/Units 21:57 05:29 05:29 Sodium 139 136 137 (136-145) meq/L Potassium 4.6 4.4 4.4 (3.5-5.1) meq/L Chloride 97 L 96 L 96 L (98-107) meq/L Carbon Dioxide 28.0 27.0 27.8 (21.0-32.0) meq/L BUN 49 H 58 H 58 H (7-18) mg/dL Creatinine 8.12 H 8.76 H 8.78 H (0.60-1.30) mg/dL Calcium 8.8 8.7 9.3 (8.5-10.1) mg/dL AST 51 H (15-37) U/L ALT 60 (12-78) U/L Alkaline Phosphatase 195 H (45-117) U/L Total Protein 7.0 (6.4-8.2) g/dL Albumin 2.8 L 2.9 L 2.9 L (3.4-5.0) g/dL 06/14/18 Range/Units 03:33 Sodium 135 L (136-145) meq/L Potassium 5.0 (3.5-5.1) meq/L Chloride 97 L (98-107) meq/L Carbon Dioxide 24.3 (21.0-32.0) meq/L BUN 68 H (7-18) mg/dL Creatinine 9.83 H (0.60-1.30) mg/dL Calcium 9.0 (8.5-10.1) mg/dL AST 47 H (15-37) U/L ALT 54 (12-78) U/L Alkaline Phosphatase 183 H (45-117) U/L Total Protein 6.9 (6.4-8.2) g/dL Albumin 2.9 L (3.4-5.0) g/dL Intake and Output 06/13/18 06/14/18 06/14/18 22:59 06:59 14:59 Intake Total 1450 / 1450 200 / 200 Output Total 900 / 900 4000 / 4000 Balance 550 / 550 -3800 / -3800 Intake: IV 200 / 200 Flexbumin 25% Inj 100 ML @ 60 200 / 200 mls/hr IV.SIG WITH DIALYSIS PRN Rx#:[id number] Oral 1450 / 1450 Output: Urine 900 / 900 Hemodialysis Amount 4000 / 4000 Other: # Voids 4 # Bowel Movements 3 Weight 100 kg Assessment and Plan - Assessment (1) Thrombocytopenia Code(s): D69.6 - Thrombocytopenia, unspecified Status: Acute (2) Anemia Code(s): D64.9 - Anemia, unspecified Status: Acute (3) Leukemia Code(s): C95.90 - Leukemia, unspecified not having achieved remission Status: Acute (4) NSTEMI (non-ST elevated myocardial infarction) Code(s): I21.4 - Non-ST elevation (NSTEMI) myocardial infarction Status: Acute (5) Tobacco abuse Code(s): Z72.0 - Tobacco use Status: Acute (6) RADHA (acute kidney injury) Code(s): N17.9 - Acute kidney failure, unspecified Status: Acute (7) ETOH abuse Code(s): F10.10 - Alcohol abuse, uncomplicated Status: Acute (8) Rectal pain Code(s): K62.89 - Other specified diseases of anus and rectum Status: Deleted (9) Metabolic acidosis Code(s): E87.2 - Acidosis Status: Acute (10) Diverticulitis Code(s): K57.92 - Diverticulitis of intestine, part unspecified, without perforation or abscess without bleeding Status: Acute (11) Acute renal failure Code(s): N17.9 - Acute kidney failure, unspecified Status: Acute (12) Transaminitis Code(s): R74.0 - Nonspecific elevation of levels of transaminase and lactic acid dehydrogenase [LDH] Status: Acute (13) Alcohol abuse Code(s): F10.10 - Alcohol abuse, uncomplicated Status: Acute - Plan 1.) NSTEMI - suspect trop elevation due to arf which appears to be due to rhabdomyolysis, he is assymptomatic 2.) Afib - 2d echo ef=50%, [id number] score=1, male gender, ac held due to unstable platelet count, hgb and liver function, continue to f/u trends in lfts , hgb, plt ct; rash started @ time aspirin 81 mg qd started 06/01/18, will dc aspirin and start plavix 75 mg qd, 06/05/18, no improvement in rash, i explained to patient that if due to aspirin may take several days for plasma levels of aspirin to decrease and to see improvement if rash is due to aspirin, ; not good candidate for ac with noac or coumadin due to alcohol abuse, liver failure , fall risk and unstable hgb and platelet count 3.) Respiratory failure - ef=50% on echo, assymptomatic 05/27/18, possibly due to volume overload from arf, improved with dialysis 4.) Rash - improved (11) Acute renal failure Qualifiers: Acute renal failure type: unspecified Qualified Code(s): N17.9 - Acute kidney failure, unspecified
[2018-06-15] MEDS: Oral Hygiene Kit OROPHARYNG SCH ×4 (00:10→16:00)
[2018-06-15] MEDS: oxyCODONE/Acetaminophen 10/325 Tablet PO PRN ×4 (03:55→20:06)
[2018-06-15] MEDS: Heparin - SQ 10,000 UNITS/ML Vial SQ SCH ×3 (06:25→22:23)
[2018-06-15 09:03] LABS: Hematocrit 25.4 % (39.0-51.0); Hemoglobin 8.4 gm/dL (13.0-17.0); Mean Corpuscular HGB Conc 32.9 % (32.0-36.0); Mean Corpuscular Hemoglobin 36.8 pg (27.0-34.0); Mean Corpuscular Volume 111.8 fL (80.0-100.0); Mean Platelet Volume 8.9 fL (7.0-11.0); Platelet Count 227 th/mm3 (150-450); Red Blood Count 2.28 mil/mm3 (4.50-5.90); Red Cell Distribution Width 18.2 % (11.6-17.2)
[2018-06-15] MEDS: Senna/Docusate Sodium 8.6/50 MG Tablet PO SCH ×2 (09:40→20:08)
[2018-06-15] MEDS: Calcium Acetate 667 MG Capsule PO SCH ×2 (09:41→18:31)
[2018-06-15] MEDS: Polyethylene Glycol 3350 17 GM Packet PO SCH ×2 (09:42→20:09)
[2018-06-15] MEDS: Famotidine 20 MG Tablet PO SCH ×2 (09:42→21:03)
[2018-06-15] MEDS: Chlorhexidine 0.12% Oral Kit 15 ML UDC OROPHARYNG SCH ×2 (09:46→21:02)
[2018-06-15] MEDS: Hydrocortisone Acetate 25 MG Supp RECTAL SCH ×3 (09:47→18:32)
[2018-06-15 09:51] LABS: Eosinophils 13 % (0-4); Lymphocytes 22 % (9-44); Monocytes 9 % (0-8)
[2018-06-15 09:52] LABS: Stomatocytes 1+
[2018-06-15 09:53] LABS: Platelet Estimate Normal (Normal); Platelet Morphology Normal (Normal); Spherocytes 1+
--- NOTE | 2018-06-15 10:06 | P.PNNP ---
Subjective Interval history: Patient reports that his urine output is improving. Dialyzed yesterday, 4 liters removed in dialysis. Lower extremity edema persists, but improved. Physical Exam Vital signs: Vital Signs 06/14/18 12:00 06/14/18 16:00 06/14/18 20:00 Temperature 98.2 F 98.1 F 98.4 F Pulse Rate 126 H 103 H 69 Respiratory Rate 20 18 18 Blood Pressure 139/64 111/56 L 108/55 L Pulse Oximetry 100 99 99 06/15/18 00:00 06/15/18 04:00 06/15/18 08:00 Temperature 98 F 97.7 F 98.4 F Pulse Rate 92 H 92 H 98 H Respiratory Rate 18 18 20 Blood Pressure 121/62 120/57 L 139/63 Pulse Oximetry 99 99 96 Intake & Output 06/14/18 06/15/18 06/15/18 18:59 06:59 18:59 Intake Total 200 / 200 Output Total 4300 / 4300 200 / 200 Balance -4100 / -4100 -200 / -200 Weight 97.6 kg Intake: IV 200 / 200 Flexbumin 25% Inj 100 ML @ 60 200 / 200 mls/hr IV.SIG WITH DIALYSIS PRN Rx#:[id number] Output: Urine 300 / 300 200 / 200 Hemodialysis Amount 4000 / 4000 Other: # Bowel Movements 2 2 Narrative: GENERAL: no apparent distress. SKIN: rash has improved. CARDIOVASCULAR: Normal rate and regular rhythm without murmurs. Grossly normal perfusion RESPIRATORY: CTAB; normal rate GASTROINTESTINAL: Abdomen soft, non-tender, non-distended. Normal active bowel sounds MUSCULOSKELETAL: lower extremity edema. NEURO: Alert & Oriented. No focal deficits. - Urinary Catheter Management Indwelling Urethral Catheter Cath placed during this visit: yes, but has since been removed by the nurse Reason for continuing: Decision to DC catheter Insertion date: 05/28/18 Insertion time: 13:30 Removal date: 05/29/18 Removal time: 16:15 Assessment and Plan - Assessment (1) RADHA (acute kidney injury) Code(s): N17.9 - Acute kidney failure, unspecified Status: Acute Plan: He has underlying CKD, baseline creatinine was 1.5-1.6 earlier this year. RADHA is due to rhabdomyolysis. Dialysis initiated on 05/27. Continue to monitor urine output. He has significant proteinuria. Serologies negative. CPK had improved. Avoid nephrotoxic agents. Urine output may be improving. Continue diuresis with Bumex. Fluid restriction has been advised. Watch for renal recovery. Dialysis prn, possibly tomorrow. Monitor labs daily. (2) ETOH abuse Code(s): F10.10 - Alcohol abuse, uncomplicated Status: Acute Plan: Cessation has been advised.
[2018-06-15 10:12] LABS: Calcium 9.1 mg/dL (8.5-10.1); Carbon Dioxide 29.3 meq/L (21.0-32.0); Potassium 4.1 meq/L (3.5-5.1)
--- NOTE | 2018-06-15 13:12 | P.PNCA ---
Subjective Interval history: alert in nad Medications and Allergies Active Medications: Active Medications Acetaminophen (Tylenol) 650 mg PO Q4H PRN PRN Reason: Temp > 100.4 Acetaminophen (Tylenol) 650 mg PO UNSCH PRN PRN Reason: SEE LABEL COMMENTS Acetaminophen (Tylenol) 500 mg PO Q6H PRN PRN Reason: PAIN 1-6 Al Hydroxide/Mg Hydroxide (Milk Of Magnpineda Liq) 30 ml PO Q12H PRN PRN Reason: Mild Constipation Albuterol (Duoneb Neb (Prn)) 1 ampul NEB Q2HR NEB PRN PRN Reason: WHEEZING Bisacodyl (Dulcolax Supp) 10 mg RECTAL DAILY PRN PRN Reason: if no BM in last 24h Last Admin: 06/10/18 05:49 Dose: 10 mg Bumetanide (Bumex Inj) 2 mg IV.PUSH BID@0900,1800 REPLACED BY [facility] Last Admin: 06/15/18 09:45 Dose: 2 mg Calcium Acetate (Phoslo) 667 mg PO TID REPLACED BY [facility] Last Admin: 06/15/18 09:41 Dose: 667 mg Cetirizine HCl (Zyrtec) 10 mg PO BID REPLACED BY [facility] Last Admin: 06/15/18 09:40 Dose: 10 mg Chlorhexidine Gluconate (Peridex 0.12% Oral Kit) 15 ml OROPHARYNG BID@0800, 2000 REPLACED BY [facility] Last Admin: 06/15/18 09:46 Dose: Not Given Clopidogrel Bisulfate (Plavix) 75 mg PO DAILY REPLACED BY [facility] Last Admin: 06/15/18 09:40 Dose: 75 mg Dextrose (D50w Syringe) 50 ml IV.PUSH UNSCH PRN PRN Reason: PER HYPOGLYCEMIA PROTOCOL Diphenhydramine HCl (Benadryl) 25 mg PO Q4H PRN PRN Reason: ITCHING Last Admin: 06/15/18 03:55 Dose: 25 mg Diphenhydramine HCl (Benadryl) 50 mg PO Q6H PRN PRN Reason: ITCHING Last Admin: 06/10/18 14:44 Dose: 50 mg Famotidine (Pepcid) 10 mg PO BID REPLACED BY [facility] Last Admin: 06/15/18 09:42 Dose: Not Given Gelatin (Gelfoam 12 Mm/7 Mm Topical) 1 foam TOPICAL PRN PRN PRN Reason: help stop bleeding from site Gentamicin Sulfate (Gentamicin Inj) 20 mg OTHER WITH DIALYSIS PRN PRN Reason: Dwell Gentamycin Lock Last Admin: 06/11/18 10:43 Dose: 20 mg Glucagon (Glucagon Inj) 1 mg IM ONCE PRN PRN Reason: blood sugar < 60, no iv access Haloperidol Lactate (Haldol Inj) 5 mg IV.PUSH Q15M PRN PRN Reason: for severe agitation Heparin Sodium (Porcine) (Heparin Inj) 5,000 units SQ Q8HR WEI Last Admin: 06/15/18 06:25 Dose: 5,000 units Heparin Sodium (Porcine) (Heparin Inj) 8,000 units OTHER WITH DIALYSIS PRN PRN Reason: for machine prime Last Admin: 06/04/18 12:39 Dose: 3,500 units Heparin Sodium (Porcine) (Heparin Inj) 1,000 units OTHER WITH DIALYSIS PRN PRN Reason: Dwell Heparin to Fill Catheter Last Admin: 06/11/18 10:42 Dose: 1,000 units Hydrocortisone Acetate (Hemorrhoidal Hc Supp) 25 mg RECTAL TID WEI Last Admin: 06/15/18 09:47 Dose: 25 mg Hydrocortisone Acetate (Hydrocortisone 1% Cream) 1 applicatio TOPICAL TID PRN PRN Reason: RASH Last Admin: 06/11/18 08:56 Dose: 1 applicatio Albumin Human (Flexbumin 25% Inj) 100 mls @ 60 mls/hr IV.SIG WITH DIALYSIS PRN PRN Reason: hypotension / volume replace Last Infusion: 06/14/18 08:51 Dose: Infused Sodium Chloride (Ns Inj) 1,000 mls @ 0 mls/hr OTHER .Q0M PRN PRN Reason: for prime and rinse back Sodium Chloride (Ns Inj) 1,000 mls @ 200 mls/hr OTHER .Q5H PRN PRN Reason: for dialyzer flush PRN Sodium Chloride (Ns Inj) 1,000 mls @ 0 mls/hr IV.CONT .Q0M PRN PRN Reason: hypotension / volume replace Vasopressin 40 unit/ Dextrose 100 mls @ 6 mls/hr IV.CONT CONT WEI; Protocol Last Infusion: 06/01/18 19:33 Dose: Infused Insulin Human Regular (Novolin R Inj) 1 units SQ Q6HR WEI; Protocol Last Admin: 06/15/18 06:26 Dose: Not Given Lactulose (Lactulose Liq) 30 ml PO BID WEI Last Admin: 06/15/18 09:42 Dose: 30 ml Nicotine (Habitrol 14 Mg Patch.24 Hr) 1 patch T-DERMAL DAILY REPLACED BY [facility] Last Admin: 06/15/18 09:43 Dose: 1 patch Nitroglycerin (Nitrostat Sl) 0.4 mg SL Q5M PRN PRN Reason: CHEST PAIN Ondansetron HCl (Zofran Inj) 4 mg IV.PUSH Q6H PRN PRN Reason: NAUSEA OR VOMITING Last Admin: 05/30/18 20:46 Dose: 4 mg Ondansetron HCl (Zofran Inj) 4 mg IV.PUSH UNSCH PRN PRN Reason: NAUSEA OR VOMITING Oxycodone/Acetaminophen (Percocet 10/325 Mg) 1 tab PO Q4H PRN PRN Reason: PAIN SCALE 7 TO 10 SEVERE Last Admin: 06/15/18 08:29 Dose: 1 tab Pantoprazole Sodium (Protonix) 40 mg PO DAILY REPLACED BY [facility] Last Admin: 06/15/18 09:42 Dose: Not Given Patch Removal (Remove Old Patch) 1 each T-DERMAL DAILY REPLACED BY [facility] Last Admin: 06/15/18 09:41 Dose: 1 each Polyethylene Glycol (Miralax) 17 gm PO BID REPLACED BY [facility] Last Admin: 06/15/18 09:42 Dose: 17 gm Senna/Docusate Sodium (Najma-Colace) 1 tab PO BID REPLACED BY [facility] Last Admin: 06/15/18 09:40 Dose: 1 tab Sennosides (Senokot) 17.2 mg PO Q12H PRN PRN Reason: Moderate Constipation Sodium Chloride (Ns Flush) 5 ml IV.FLUSH PRN PRN PRN Reason: flush each lumen during HD Sodium Chloride (Ns Flush) 2 ml IV.FLUSH UNSCH PRN PRN Reason: FLUSH AFTER USING IV ACCESS Terbutaline Sulfate (Brethine Inj) 1 mg SQ UNSCH PRN PRN Reason: For Extravasation Thiamine HCl (Vitamin B1) 100 mg PO DAILY REPLACED BY [facility] Last Admin: 06/15/18 09:41 Dose: 100 mg Zolpidem Tartrate (Ambien) 5 mg PO HS PRN PRN Reason: INSOMNIA Last Admin: 06/01/18 01:51 Dose: 5 mg Allergies Allergy/AdvReac Type Severity Reaction Status Date / Time [id number]-Krx-Mvc Reductase AdvReac Urinary Verified 06/05/18 16:04 Inhibitor Freq (Inc/Dec) Home Medications Medication Instructions Recorded Confirmed Type atorvastatin 80 mg PO DAILY 04/30/18 05/26/18 History lisinopril 10 mg PO DAILY 04/30/18 05/26/18 History Physical Exam Vital signs: Vital Signs 06/14/18 16:00 06/14/18 20:00 06/15/18 00:00 Temperature 98.1 F 98.4 F 98 F Pulse Rate 103 H 69 92 H Respiratory Rate 18 18 18 Blood Pressure 111/56 L 108/55 L 121/62 Pulse Oximetry 99 99 99 06/15/18 04:00 06/15/18 08:00 Temperature 97.7 F 98.4 F Pulse Rate 92 H 98 H Respiratory Rate 18 20 Blood Pressure 120/57 L 139/63 Pulse Oximetry 99 96 Intake & Output 06/14/18 06/15/18 06/15/18 18:59 06:59 18:59 Intake Total 200 / 200 Output Total 4300 / 4300 200 / 200 Balance -4100 / -4100 -200 / -200 Weight 97.6 kg Intake: IV 200 / 200 Flexbumin 25% Inj 100 ML @ 60 200 / 200 mls/hr IV.SIG WITH DIALYSIS PRN Rx#:[id number] Output: Urine 300 / 300 200 / 200 Hemodialysis Amount 4000 / 4000 Other: # Bowel Movements 2 2 - Urinary Catheter Management Indwelling Urethral Catheter Cath placed during this visit: yes, but has since been removed by the nurse Reason for continuing: Decision to DC catheter Insertion date: 05/28/18 Insertion time: 13:30 Removal date: 05/29/18 Removal time: 16:15 Results 06/15/18 07:18 06/15/18 07:18 Cardiac Enzymes 06/14/18 Range/Units 03:33 AST 47 H (15-37) U/L CBC 06/14/18 06/15/18 Range/Units 03:33 07:18 WBC 7.7 7.0 (4.0-11.0) th/mm3 RBC 2.25 L 2.28 L (4.50-5.90) mil/mm3 Hgb 8.5 L 8.4 L (13.0-17.0) gm/dL Hct 25.2 L 25.4 L (39.0-51.0) % Plt Count 197 227 (150-450) th/mm3 Neut # (Auto) 4.1 (1.8-7.7) th/mm3 Lymph # (Auto) 1.1 (1.0-4.8) th/mm3 Dolores # (Auto) 0.7 (0.0-0.9) th/mm3 Eos # (Auto) 1.6 H (0.0-0.4) th/mm3 Baso # (Auto) 0.1 (0.0-0.2) th/mm3 Comprehensive Metabolic Panel 06/14/18 06/15/18 Range/Units 03:33 07:18 Sodium 135 L 136 (136-145) meq/L Potassium 5.0 4.1 D (3.5-5.1) meq/L Chloride 97 L 97 L (98-107) meq/L Carbon Dioxide 24.3 29.3 (21.0-32.0) meq/L BUN 68 H 45 H (7-18) mg/dL Creatinine 9.83 H 7.25 H (0.60-1.30) mg/dL Calcium 9.0 9.1 (8.5-10.1) mg/dL AST 47 H (15-37) U/L ALT 54 (12-78) U/L Alkaline Phosphatase 183 H (45-117) U/L Total Protein 6.9 (6.4-8.2) g/dL Albumin 2.9 L (3.4-5.0) g/dL Intake and Output 06/14/18 06/15/18 06/15/18 22:59 06:59 14:59 Output Total 300 / 300 200 / 200 Balance -300 / -300 -200 / -200 Output: Urine 300 / 300 200 / 200 Other: # Bowel Movements 2 2 Weight 97.6 kg Assessment and Plan - Assessment (1) Thrombocytopenia Code(s): D69.6 - Thrombocytopenia, unspecified Status: Acute (2) Anemia Code(s): D64.9 - Anemia, unspecified Status: Acute (3) Leukemia Code(s): C95.90 - Leukemia, unspecified not having achieved remission Status: Acute (4) NSTEMI (non-ST elevated myocardial infarction) Code(s): I21.4 - Non-ST elevation (NSTEMI) myocardial infarction Status: Acute (5) Tobacco abuse Code(s): Z72.0 - Tobacco use Status: Acute (6) RADHA (acute kidney injury) Code(s): N17.9 - Acute kidney failure, unspecified Status: Acute (7) ETOH abuse Code(s): F10.10 - Alcohol abuse, uncomplicated Status: Acute (8) Rectal pain Code(s): K62.89 - Other specified diseases of anus and rectum Status: Deleted (9) Metabolic acidosis Code(s): E87.2 - Acidosis Status: Acute (10) Diverticulitis Code(s): K57.92 - Diverticulitis of intestine, part unspecified, without perforation or abscess without bleeding Status: Acute (11) Acute renal failure Code(s): N17.9 - Acute kidney failure, unspecified Status: Acute (12) Transaminitis Code(s): R74.0 - Nonspecific elevation of levels of transaminase and lactic acid dehydrogenase [LDH] Status: Acute (13) Alcohol abuse Code(s): F10.10 - Alcohol abuse, uncomplicated Status: Acute - Plan 1.) NSTEMI - suspect trop elevation due to arf which appears to be due to rhabdomyolysis, he is assymptomatic 2.) Afib - 2d echo ef=50%, [id number] score=1, male gender, ac held due to unstable platelet count, hgb and liver function, continue to f/u trends in lfts , hgb, plt ct; rash started @ time aspirin 81 mg qd started 06/01/18, will dc aspirin and start plavix 75 mg qd, 06/05/18, no improvement in rash, i explained to patient that if due to aspirin may take several days for plasma levels of aspirin to decrease and to see improvement if rash is due to aspirin, ; not good candidate for ac with noac or coumadin due to alcohol abuse, liver failure , fall risk and unstable hgb and platelet count 3.) Respiratory failure - ef=50% on echo, assymptomatic 05/27/18, possibly due to volume overload from arf, improved with dialysis 4.) Rash - improved (11) Acute renal failure Qualifiers: Acute renal failure type: unspecified Qualified Code(s): N17.9 - Acute kidney failure, unspecified
--- NOTE | 2018-06-15 15:37 | P.PN ---
Subjective Interval history: Patient is seen sitting up in room getting ready to take shower. He reports that he feels better after dialysis yesterday. No chest pain or shortness of breath. No nausea vomiting or diarrhea. Nursing reports no adverse events. Physical Exam Vital signs: Vital Signs 06/14/18 16:00 06/14/18 20:00 06/15/18 00:00 Temperature 98.1 F 98.4 F 98 F Pulse Rate 103 H 69 92 H Respiratory Rate 18 18 18 Blood Pressure 111/56 L 108/55 L 121/62 Pulse Oximetry 99 99 99 06/15/18 04:00 06/15/18 08:00 06/15/18 12:00 Temperature 97.7 F 98.4 F 97.5 F L Pulse Rate 92 H 98 H 96 H Respiratory Rate 18 20 20 Blood Pressure 120/57 L 139/63 145/72 H Pulse Oximetry 99 96 98 Intake & Output 06/14/18 06/15/18 06/15/18 18:59 06:59 18:59 Intake Total 200 / 200 Output Total 4300 / 4300 200 / 200 Balance -4100 / -4100 -200 / -200 Weight 97.6 kg Intake: IV 200 / 200 Flexbumin 25% Inj 100 ML @ 60 200 / 200 mls/hr IV.SIG WITH DIALYSIS PRN Rx#:[id number] Output: Urine 300 / 300 200 / 200 Hemodialysis Amount 4000 / 4000 Other: # Bowel Movements 2 2 Narrative: GENERAL: Well-nourished, well-developed adult male in no obvious distress. SKIN: Warm and dry. Dialysis catheter in right chest wall. HEAD: Atraumatic. Normocephalic. CARDIOVASCULAR: Regular rate and rhythm. RESPIRATORY: No accessory muscle use. Clear to auscultation. Breath sounds equal bilaterally. GASTROINTESTINAL: Abdomen soft, non-tender, non-distended. Positive bowel sounds. MUSCULOSKELETAL: Extremities without clubbing, cyanosis, or edema. No obvious deformities. NEUROLOGICAL: Awake and alert. No obvious cranial nerve deficits. Motor grossly within normal limits. Normal speech. PSYCHIATRIC: Appropriate mood and affect; insight and judgment good. - Urinary Catheter Management Indwelling Urethral Catheter Cath placed during this visit: yes, but has since been removed by the nurse Reason for continuing: Decision to DC catheter Insertion date: 05/28/18 Insertion time: 13:30 Removal date: 05/29/18 Removal time: 16:15 Results - Labs CBC & Chem 7: 06/15/18 07:18 06/15/18 07:18 Laboratory Results - last 24 hr 06/14/18 06/14/18 06/15/18 16:33 23:56 06:24 WBC RBC Hgb Hct MCV MCH MCHC RDW Plt Count MPV Prelim Diff (Auto) WBC Differential Seg Neuts % (Manual) Band Neuts % (Manual) Lymphocytes % (Manual) Monocytes % (Manual) Eosinophils % (Manual) Basophils % (Manual) Abs Neuts (Manual) Differential Comment Platelet Estimate Platelet Morphology Spherocytes Stomatocytes Sodium Potassium Chloride Carbon Dioxide Anion Gap BUN Creatinine Estimated GFR POC Glucose 145 H 134 H 111 H Random Glucose Calcium 06/15/18 06/15/18 06/15/18 07:18 07:18 12:54 WBC 7.0 RBC 2.28 L Hgb 8.4 L Hct 25.4 L MCV 111.8 H MCH 36.8 H MCHC 32.9 RDW 18.2 H Plt Count 227 MPV 8.9 Prelim Diff (Auto) Manual diff required WBC Differential Manual diff final Seg Neuts % (Manual) 48 Band Neuts % (Manual) 6 Lymphocytes % (Manual) 22 Monocytes % (Manual) 9 H Eosinophils % (Manual) 13 H Basophils % (Manual) 2 Abs Neuts (Manual) 3.8 Differential Comment . Platelet Estimate Normal Platelet Morphology Normal Spherocytes 1+ H Stomatocytes 1+ H Sodium 136 Potassium 4.1 D Chloride 97 L Carbon Dioxide 29.3 Anion Gap 10 BUN 45 H Creatinine 7.25 H Estimated GFR 8 L POC Glucose 126 H Random Glucose 91 Calcium 9.1 - Procedures HD CATHETER AND INTUBATION AND EXTUBATION AND MECHANICAL VENTILATION AND HD MULTIPLE TIMES Assessment and Plan - Assessment (1) RADHA (acute kidney injury) Code(s): N17.9 - Acute kidney failure, unspecified Status: Acute (2) Acute renal failure Code(s): N17.9 - Acute kidney failure, unspecified Status: Acute (3) Transaminitis Code(s): R74.0 - Nonspecific elevation of levels of transaminase and lactic acid dehydrogenase [LDH] Status: Acute (4) Alcohol abuse Code(s): F10.10 - Alcohol abuse, uncomplicated Status: Acute (5) Rhabdomyolysis due to statin therapy Code(s): M62.82 - Rhabdomyolysis Status: Acute (6) NSTEMI (non-ST elevated myocardial infarction) Code(s): I21.4 - Non-ST elevation (NSTEMI) myocardial infarction Status: Acute - Plan 53-year-old male with acute hypoxic and hypercarbic respiratory failure and acute severe metabolic encephalopathy with associated multiorgan failure including renal failure and liver failure. Patient initially required intubation /ICU care; he has since stabilized and transferred to hospitalist service: Renal Acute renal failure secondary to rhabdomyolysis from statin. No obstruction. Significant proteinuria. Serology negative. Mild CKD at baseline prior to acute injury. Dialysis started 05/27 -Nephrology consulted -Continue dialysis -s/p dialysis 06/14; 4L removed -monitor urine output -hold Lisinopril, other nephrotoxins Respiratory Acute hypoxic and hypercarbic respiratory failure: Status post intubation and extubation. Echo with EF 50%; suspected failure from ARF - Supplemental oxygen as needed. - Breathing treatments as needed. -Dialysis as below Cardiovascular Elevated troponin Atrial fibrillation Impression: Cardiology consulted. Echo- EF 50%. [id number] 1. Determined anticoagulation risk high for multiple risks -Continue Plavix -Continue to monitor labs/platelet count Statin induced rhabdomyolysis -Ongoing hemodialysis as above. -Continue to trend CK levels. Alcohol dependence: - Off CIWA protocol. - No signs of withdrawal currently Acute liver failure Impression: Downtrending LFT's. Transaminases >1000 05/26 ----> less than 100 . - Follow LFTs. -s/p lactulose (Ammonia <10 06/04) Acute diverticulitis/rectal pain Impression: 05/26 A/P CT with sigmoid diverticulitis. no reported recent symptoms. Cipro/Flagyl stopped -Continue to monitor Rash: Probable drug reaction: Cipro and Flagyl previously discontinued. Benadryl as needed. Continue Zyrtec and Pepcid. Tobacco dependence -Nicotine patch given DVT PPX Heparin 5K U q8hrs Code Status: Full code Discharge Planning: Pending renal improvement/Nephrology recommendations (2) Acute renal failure Qualifiers: Acute renal failure type: unspecified Qualified Code(s): N17.9 - Acute kidney failure, unspecified
[2018-06-16] MEDS: oxyCODONE/Acetaminophen 10/325 Tablet PO PRN ×6 (00:02→20:42)
[2018-06-16] MEDS: Oral Hygiene Kit OROPHARYNG SCH ×5 (00:08→23:48)
[2018-06-16 05:24] LABS: Hematocrit 24.4 % (39.0-51.0); Mean Corpuscular HGB Conc 32.7 % (32.0-36.0); Mean Corpuscular Hemoglobin 37.1 pg (27.0-34.0); Mean Corpuscular Volume 113.5 fL (80.0-100.0); Mean Platelet Volume 8.8 fL (7.0-11.0); Platelet Count 218 th/mm3 (150-450); Red Blood Count 2.15 mil/mm3 (4.50-5.90); Red Cell Distribution Width 18.1 % (11.6-17.2); White Blood Count 6.3 th/mm3 (4.0-11.0)
[2018-06-16 05:42] LABS: Albumin 3.3 g/dL (3.4-5.0); Calcium 8.9 mg/dL (8.5-10.1); Carbon Dioxide 27.7 meq/L (21.0-32.0); Potassium 4.2 meq/L (3.5-5.1)
[2018-06-16 05:48] LABS: Phosphorus 5.7 mg/dL (2.5-4.9)
[2018-06-16] MEDS: Heparin - SQ 10,000 UNITS/ML Vial SQ SCH ×3 (06:02→21:05)
[2018-06-16 08:09] LABS: Bacteria,Urine Occasional /hpf; Bilirubin,Urine Negative (Negative); Clarity,Urine Hazy (Clear); Color,Urine Yellow (Yellw/Straw); Glucose,Urine (UA) Negative (Negative); Hyaline Casts,Urine 8 /lpf (0-3); Leukocyte Esterase,Urine Negative (Negative); Nitrite,Urine Negative (Negative); Specific Gravity,Urine 1.017 (1.002-1.035); Squamous Epithelial Cell,Urine <1 /hpf (0-5)
[2018-06-16] MEDS: Albumin Human 25% Inj 100 ML IV.SIG PRN ×2 (08:26→08:29)
--- NOTE | 2018-06-16 10:01 | P.PNNP ---
Subjective Interval history: patient was seen during dialysis. On 3K, 2.5 Ca. UF goal is 4 liters. Tolerating it well. We discussed salt and water restriction. Urine output may be improving. Physical Exam Vital signs: Vital Signs 06/15/18 12:00 06/15/18 16:00 06/15/18 20:00 Temperature 97.5 F L 98.8 F 97.7 F Pulse Rate 96 H 66 86 Respiratory Rate 20 20 20 Blood Pressure 145/72 H 109/56 L 139/65 Pulse Oximetry 98 95 100 06/16/18 00:00 06/16/18 04:00 06/16/18 08:00 Temperature 98.2 F 98.7 F 97.7 F Pulse Rate 78 84 101 H Respiratory Rate 20 20 17 Blood Pressure 110/81 133/63 112/70 Pulse Oximetry 99 96 97 Intake & Output 06/15/18 06/16/18 06/16/18 18:59 06:59 18:59 Intake Total 480 / 480 200 / 200 Output Total 201 / 201 350 / 350 Balance -201 / -201 130 / 130 200 / 200 Weight 99.5 kg Intake: IV 200 / 200 Flexbumin 25% Inj 100 ML @ 60 200 / 200 mls/hr IV.SIG WITH DIALYSIS PRN Rx#:[id number] Oral 480 / 480 Output: Urine 200 / 200 350 / 350 Stool 1 / 1 Hemodialysis Amount 0 / 0 Other: Date of Last Bowel Movement 06/11/18 # Bowel Movements 2 # Oral Regurgitations 5 Narrative: GENERAL: Well-nourished, well-developed adult male in no obvious distress. SKIN: Warm and dry. Dialysis catheter in right chest wall. HEAD: Atraumatic. Normocephalic. CARDIOVASCULAR: Regular rate and rhythm. RESPIRATORY: No accessory muscle use. Clear to auscultation. Breath sounds equal bilaterally. GASTROINTESTINAL: Abdomen soft, non-tender, non-distended. Positive bowel sounds. MUSCULOSKELETAL: 3-4+ edema. NEUROLOGICAL: Awake and alert. No obvious cranial nerve deficits. Motor grossly within normal limits. Normal speech. - Urinary Catheter Management Indwelling Urethral Catheter Cath placed during this visit: yes, but has since been removed by the nurse Reason for continuing: Decision to DC catheter Insertion date: 05/28/18 Insertion time: 13:30 Removal date: 05/29/18 Removal time: 16:15 Assessment and Plan - Assessment (1) RADHA (acute kidney injury) Code(s): N17.9 - Acute kidney failure, unspecified Status: Acute Plan: He has underlying CKD, baseline creatinine was 1.5-1.6 earlier this year. RADHA is due to rhabdomyolysis. Dialysis initiated on 05/27. Continue to monitor urine output. Serologies negative. Avoid nephrotoxic agents. Urine output may be improving. Continue diuresis with Bumex. Fluid restriction has been advised. Watch for renal recovery. Dialysis today and prn. (2) ETOH abuse Code(s): F10.10 - Alcohol abuse, uncomplicated Status: Acute Plan: Cessation has been advised.
[2018-06-16] MEDS: Polyethylene Glycol 3350 17 GM Packet PO SCH ×2 (12:15→21:03)
[2018-06-16] MEDS: Senna/Docusate Sodium 8.6/50 MG Tablet PO SCH ×2 (12:15→20:42)
[2018-06-16] MEDS: Calcium Acetate 667 MG Capsule PO SCH ×3 (12:16→18:20)
[2018-06-16] MEDS: Hydrocortisone Acetate 25 MG Supp RECTAL SCH ×3 (12:18→18:20)
[2018-06-16] MEDS: Famotidine 20 MG Tablet PO SCH ×2 (12:59→22:46)
--- NOTE | 2018-06-16 13:08 | P.PNCA ---
Subjective Interval history: assymptomatic, he thinks u/o is improving Medications and Allergies Active Medications: Active Medications Acetaminophen (Tylenol) 650 mg PO Q4H PRN PRN Reason: Temp > 100.4 Acetaminophen (Tylenol) 650 mg PO UNSCH PRN PRN Reason: SEE LABEL COMMENTS Acetaminophen (Tylenol) 500 mg PO Q6H PRN PRN Reason: PAIN 1-6 Al Hydroxide/Mg Hydroxide (Milk Of Magnpineda Liq) 30 ml PO Q12H PRN PRN Reason: Mild Constipation Albuterol (Duoneb Neb (Prn)) 1 ampul NEB Q2HR NEB PRN PRN Reason: WHEEZING Bisacodyl (Dulcolax Supp) 10 mg RECTAL DAILY PRN PRN Reason: if no BM in last 24h Last Admin: 06/10/18 05:49 Dose: 10 mg Bumetanide (Bumex Inj) 2 mg IV.PUSH BID@0900,1800 [facility] Last Admin: 06/16/18 12:25 Dose: 2 mg Calcium Acetate (Phoslo) 667 mg PO TID [facility] Last Admin: 06/16/18 12:58 Dose: Not Given Cetirizine HCl (Zyrtec) 10 mg PO BID [facility] Last Admin: 06/16/18 12:16 Dose: 10 mg Chlorhexidine Gluconate (Peridex 0.12% Oral Kit) 15 ml OROPHARYNG BID@0800, 2000 [facility] Last Admin: 06/15/18 21:02 Dose: Not Given Clopidogrel Bisulfate (Plavix) 75 mg PO DAILY [facility] Last Admin: 06/16/18 12:15 Dose: 75 mg Dextrose (D50w Syringe) 50 ml IV.PUSH UNSCH PRN PRN Reason: PER HYPOGLYCEMIA PROTOCOL Diphenhydramine HCl (Benadryl) 25 mg PO Q4H PRN PRN Reason: ITCHING Last Admin: 06/16/18 08:45 Dose: 25 mg Diphenhydramine HCl (Benadryl) 50 mg PO Q6H PRN PRN Reason: ITCHING Last Admin: 06/16/18 04:01 Dose: 50 mg Famotidine (Pepcid) 10 mg PO BID [facility] Last Admin: 06/16/18 12:59 Dose: Not Given Gelatin (Gelfoam 12 Mm/7 Mm Topical) 1 foam TOPICAL PRN PRN PRN Reason: help stop bleeding from site Gentamicin Sulfate (Gentamicin Inj) 20 mg OTHER WITH DIALYSIS PRN PRN Reason: Dwell Gentamycin Lock Last Admin: 06/11/18 10:43 Dose: 20 mg Glucagon (Glucagon Inj) 1 mg IM ONCE PRN PRN Reason: blood sugar < 60, no iv access Haloperidol Lactate (Haldol Inj) 5 mg IV.PUSH Q15M PRN PRN Reason: for severe agitation Heparin Sodium (Porcine) (Heparin Inj) 5,000 units SQ Q8HR WEI Last Admin: 06/16/18 06:02 Dose: 5,000 units Heparin Sodium (Porcine) (Heparin Inj) 8,000 units OTHER WITH DIALYSIS PRN PRN Reason: for machine prime Last Admin: 06/04/18 12:39 Dose: 3,500 units Heparin Sodium (Porcine) (Heparin Inj) 1,000 units OTHER WITH DIALYSIS PRN PRN Reason: Dwell Heparin to Fill Catheter Last Admin: 06/11/18 10:42 Dose: 1,000 units Hydrocortisone Acetate (Hemorrhoidal Hc Supp) 25 mg RECTAL TID [facility]I Last Admin: 06/16/18 12:18 Dose: 25 mg Hydrocortisone Acetate (Hydrocortisone 1% Cream) 1 applicatio TOPICAL TID PRN PRN Reason: RASH Last Admin: 06/15/18 20:07 Dose: 1 applicatio Albumin Human (Flexbumin 25% Inj) 100 mls @ 60 mls/hr IV.SIG WITH DIALYSIS PRN PRN Reason: hypotension / volume replace Last Infusion: 06/16/18 09:02 Dose: Infused Sodium Chloride (Ns Inj) 1,000 mls @ 0 mls/hr OTHER .Q0M PRN PRN Reason: for prime and rinse back Sodium Chloride (Ns Inj) 1,000 mls @ 200 mls/hr OTHER .Q5H PRN PRN Reason: for dialyzer flush PRN Sodium Chloride (Ns Inj) 1,000 mls @ 0 mls/hr IV.CONT .Q0M PRN PRN Reason: hypotension / volume replace Vasopressin 40 unit/ Dextrose 100 mls @ 6 mls/hr IV.CONT CONT WEI; Protocol Last Infusion: 06/01/18 19:33 Dose: Infused Insulin Human Regular (Novolin R Inj) 1 units SQ Q6HR WEI; Protocol Last Admin: 06/16/18 06:14 Dose: Not Given Lactulose (Lactulose Liq) 30 ml PO BID [facility] Last Admin: 06/16/18 12:20 Dose: 30 ml Nicotine (Habitrol 14 Mg Patch.24 Hr) 1 patch T-DERMAL DAILY [facility] Last Admin: 06/16/18 08:07 Dose: 1 patch Nitroglycerin (Nitrostat Sl) 0.4 mg SL Q5M PRN PRN Reason: CHEST PAIN Ondansetron HCl (Zofran Inj) 4 mg IV.PUSH Q6H PRN PRN Reason: NAUSEA OR VOMITING Last Admin: 05/30/18 20:46 Dose: 4 mg Ondansetron HCl (Zofran Inj) 4 mg IV.PUSH UNSCH PRN PRN Reason: NAUSEA OR VOMITING Oxycodone/Acetaminophen (Percocet 10/325 Mg) 1 tab PO Q4H PRN PRN Reason: PAIN SCALE 7 TO 10 SEVERE Last Admin: 06/16/18 12:15 Dose: 1 tab Pantoprazole Sodium (Protonix) 40 mg PO DAILY [facility] Last Admin: 06/16/18 12:16 Dose: 40 mg Patch Removal (Remove Old Patch) 1 each T-DERMAL DAILY [facility] Last Admin: 06/16/18 13:00 Dose: Not Given Polyethylene Glycol (Miralax) 17 gm PO BID [facility] Last Admin: 06/16/18 12:15 Dose: 17 gm Senna/Docusate Sodium (Najma-Colace) 1 tab PO BID [facility] Last Admin: 06/16/18 12:15 Dose: 1 tab Sennosides (Senokot) 17.2 mg PO Q12H PRN PRN Reason: Moderate Constipation Sodium Chloride (Ns Flush) 5 ml IV.FLUSH PRN PRN PRN Reason: flush each lumen during HD Sodium Chloride (Ns Flush) 2 ml IV.FLUSH UNSCH PRN PRN Reason: FLUSH AFTER USING IV ACCESS Terbutaline Sulfate (Brethine Inj) 1 mg SQ UNSCH PRN PRN Reason: For Extravasation Thiamine HCl (Vitamin B1) 100 mg PO DAILY [facility] Last Admin: 06/16/18 12:16 Dose: 100 mg Zolpidem Tartrate (Ambien) 5 mg PO HS PRN PRN Reason: INSOMNIA Last Admin: 06/01/18 01:51 Dose: 5 mg Allergies Allergy/AdvReac Type Severity Reaction Status Date / Time Clhnpze-Tyx-Fyy Reductase AdvReac Urinary Verified 06/05/18 16:04 Inhibitor Freq (Inc/Dec) Home Medications Medication Instructions Recorded Confirmed Type atorvastatin 80 mg PO DAILY 04/30/18 05/26/18 History lisinopril 10 mg PO DAILY 04/30/18 05/26/18 History Physical Exam Vital signs: Vital Signs 06/15/18 16:00 06/15/18 20:00 06/16/18 00:00 Temperature 98.8 F 97.7 F 98.2 F Pulse Rate 66 86 78 Respiratory Rate 20 20 20 Blood Pressure 109/56 L 139/65 110/81 Pulse Oximetry 95 100 99 06/16/18 04:00 06/16/18 08:00 06/16/18 12:00 Temperature 98.7 F 97.7 F 97.1 F L Pulse Rate 84 101 H 104 H Respiratory Rate 20 17 17 Blood Pressure 133/63 112/70 107/75 Pulse Oximetry 96 97 99 Intake & Output 06/15/18 06/16/18 06/16/18 18:59 06:59 18:59 Intake Total 480 / 480 200 / 200 Output Total 201 / 201 350 / 350 4000 / 4000 Balance -201 / -201 130 / 130 -3800 / -3800 Weight 99.5 kg Intake: IV 200 / 200 Flexbumin 25% Inj 100 ML @ 60 200 / 200 mls/hr IV.SIG WITH DIALYSIS PRN Rx#:[id number] Oral 480 / 480 Output: Urine 200 / 200 350 / 350 Stool 1 / 1 Hemodialysis Amount 0 / 0 4000 / 4000 Other: Date of Last Bowel Movement 06/11/18 # Bowel Movements 2 # Oral Regurgitations 5 - Urinary Catheter Management Indwelling Urethral Catheter Cath placed during this visit: yes, but has since been removed by the nurse Reason for continuing: Decision to DC catheter Insertion date: 05/28/18 Insertion time: 13:30 Removal date: 05/29/18 Removal time: 16:15 Results 06/16/18 03:48 06/16/18 03:48 CBC 06/15/18 06/16/18 Range/Units 07:18 03:48 WBC 7.0 6.3 (4.0-11.0) th/mm3 RBC 2.28 L 2.15 L (4.50-5.90) mil/mm3 Hgb 8.4 L 8.0 L (13.0-17.0) gm/dL Hct 25.4 L 24.4 L (39.0-51.0) % Plt Count 227 218 (150-450) th/mm3 Comprehensive Metabolic Panel 06/15/18 06/16/18 Range/Units 07:18 03:48 Sodium 136 136 (136-145) meq/L Potassium 4.1 D 4.2 (3.5-5.1) meq/L Chloride 97 L 96 L (98-107) meq/L Carbon Dioxide 29.3 27.7 (21.0-32.0) meq/L BUN 45 H 50 H (7-18) mg/dL Creatinine 7.25 H 8.12 H (0.60-1.30) mg/dL Calcium 9.1 8.9 (8.5-10.1) mg/dL Albumin 3.3 L (3.4-5.0) g/dL Intake and Output 06/15/18 06/16/18 06/16/18 22:59 06:59 14:59 Intake Total 120 / 120 360 / 360 200 / 200 Output Total 201 / 201 350 / 350 4000 / 4000 Balance -81 / -81 10 / 10 -3800 / -3800 Intake: IV 200 / 200 Flexbumin 25% Inj 100 ML @ 60 200 / 200 mls/hr IV.SIG WITH DIALYSIS PRN Rx#:[id number] Oral 120 / 120 360 / 360 Output: Urine 200 / 200 350 / 350 Stool 1 / 1 Hemodialysis Amount 0 / 0 4000 / 4000 Other: Date of Last Bowel Movement 06/11/18 # Bowel Movements 2 # Oral Regurgitations 5 Weight 99.5 kg Assessment and Plan - Assessment (1) Thrombocytopenia Code(s): D69.6 - Thrombocytopenia, unspecified Status: Acute (2) Anemia Code(s): D64.9 - Anemia, unspecified Status: Acute (3) Leukemia Code(s): C95.90 - Leukemia, unspecified not having achieved remission Status: Acute (4) NSTEMI (non-ST elevated myocardial infarction) Code(s): I21.4 - Non-ST elevation (NSTEMI) myocardial infarction Status: Acute (5) Tobacco abuse Code(s): Z72.0 - Tobacco use Status: Acute (6) RADHA (acute kidney injury) Code(s): N17.9 - Acute kidney failure, unspecified Status: Acute (7) ETOH abuse Code(s): F10.10 - Alcohol abuse, uncomplicated Status: Acute (8) Rectal pain Code(s): K62.89 - Other specified diseases of anus and rectum Status: Deleted (9) Metabolic acidosis Code(s): E87.2 - Acidosis Status: Acute (10) Diverticulitis Code(s): K57.92 - Diverticulitis of intestine, part unspecified, without perforation or abscess without bleeding Status: Acute (11) Acute renal failure Code(s): N17.9 - Acute kidney failure, unspecified Status: Acute (12) Transaminitis Code(s): R74.0 - Nonspecific elevation of levels of transaminase and lactic acid dehydrogenase [LDH] Status: Acute (13) Alcohol abuse Code(s): F10.10 - Alcohol abuse, uncomplicated Status: Acute - Plan 1.) NSTEMI - suspect trop elevation due to arf which appears to be due to rhabdomyolysis, he is assymptomatic 2.) Afib - 2d echo ef=50%, [id number] score=1, male gender, ac held due to unstable platelet count, hgb and liver function, continue to f/u trends in lfts , hgb, plt ct; rash started @ time aspirin 81 mg qd started 06/01/18, will dc aspirin and start plavix 75 mg qd, 06/05/18, no improvement in rash, i explained to patient that if due to aspirin may take several days for plasma levels of aspirin to decrease and to see improvement if rash is due to aspirin, ; not good candidate for ac with noac or coumadin due to alcohol abuse, liver failure , fall risk and unstable hgb and platelet count 3.) Respiratory failure - ef=50% on echo, assymptomatic 05/27/18, possibly due to volume overload from arf, improved with dialysis 4.) Rash - improved (11) Acute renal failure Qualifiers: Acute renal failure type: unspecified Qualified Code(s): N17.9 - Acute kidney failure, unspecified
--- NOTE | 2018-06-16 16:03 | P.PN ---
Subjective Interval history: Patient seen in room post dialysis. Tells me he has no new concerns or complaints. He is trying to watch his fluids. Producing urine. No nausea or vomiting. No chest pain or shortness of breath Physical Exam Vital signs: Vital Signs 06/15/18 16:00 06/15/18 20:00 06/16/18 00:00 Temperature 98.8 F 97.7 F 98.2 F Pulse Rate 66 86 78 Respiratory Rate 20 20 20 Blood Pressure 109/56 L 139/65 110/81 Pulse Oximetry 95 100 99 06/16/18 04:00 06/16/18 08:00 06/16/18 12:00 Temperature 98.7 F 97.7 F 97.1 F L Pulse Rate 84 101 H 104 H Respiratory Rate 20 17 17 Blood Pressure 133/63 112/70 107/75 Pulse Oximetry 96 97 99 Intake & Output 06/15/18 06/16/18 06/16/18 18:59 06:59 18:59 Intake Total 480 / 480 200 / 200 Output Total 201 / 201 350 / 350 4000 / 4000 Balance -201 / -201 130 / 130 -3800 / -3800 Weight 99.5 kg Intake: IV 200 / 200 Flexbumin 25% Inj 100 ML @ 60 200 / 200 mls/hr IV.SIG WITH DIALYSIS PRN Rx#:[id number] Oral 480 / 480 Output: Urine 200 / 200 350 / 350 Stool 1 / 1 Hemodialysis Amount 0 / 0 4000 / 4000 Other: Date of Last Bowel Movement 06/11/18 # Bowel Movements 2 # Oral Regurgitations 5 Narrative: GENERAL: Well-nourished, well-developed adult male in no obvious distress. SKIN: Warm and dry. Dialysis catheter in right chest wall. HEAD: Atraumatic. Normocephalic. CARDIOVASCULAR: Regular rate and rhythm. RESPIRATORY: No accessory muscle use. Clear to auscultation. Breath sounds equal bilaterally. GASTROINTESTINAL: Abdomen soft, non-tender, non-distended. Positive bowel sounds. MUSCULOSKELETAL: 2+ edema bilateral ankles. NEUROLOGICAL: Awake and alert. No obvious cranial nerve deficits. Motor grossly within normal limits. Normal speech. - Urinary Catheter Management Indwelling Urethral Catheter Cath placed during this visit: yes, but has since been removed by the nurse Reason for continuing: Decision to DC catheter Insertion date: 05/28/18 Insertion time: 13:30 Removal date: 05/29/18 Removal time: 16:15 Results - Labs CBC & Chem 7: 06/16/18 03:48 06/16/18 03:48 Laboratory Results - last 24 hr 06/15/18 06/15/18 06/16/18 17:28 23:59 03:48 WBC 6.3 RBC 2.15 L Hgb 8.0 L Hct 24.4 L MCV 113.5 H MCH 37.1 H MCHC 32.7 RDW 18.1 H Plt Count 218 MPV 8.8 Prelim Diff (Auto) Manual diff required WBC Differential . Diff Scan Auto diff confirmed Differential Comment . Sodium Potassium Chloride Carbon Dioxide Anion Gap BUN Creatinine Estimated GFR POC Glucose 142 H 167 H Random Glucose Calcium Phosphorus Albumin Urine Color Urine Clarity Urine pH Ur Specific [place] Urine Protein Urine Glucose (UA) Urine Ketones Urine Occult Blood Urine Nitrate Urine Bilirubin Urine Urobilinogen Ur Leukocyte Esterase Urine RBC Urine WBC Ur Squamous Epith Cells Urine Bacteria Hyaline Casts Micro UA Comment Ur Microscopic Review Urine Culture Comments 06/16/18 06/16/18 06/16/18 03:48 06:06 07:05 WBC RBC Hgb Hct MCV MCH MCHC RDW Plt Count MPV Prelim Diff (Auto) WBC Differential Diff Scan Differential Comment Sodium 136 Potassium 4.2 Chloride 96 L Carbon Dioxide 27.7 Anion Gap 12 BUN 50 H Creatinine 8.12 H Estimated GFR 7 L POC Glucose 119 H Random Glucose 111 H Calcium 8.9 Phosphorus 5.7 H Albumin 3.3 L Urine Color Yellow Urine Clarity Hazy H Urine pH 5.0 Ur Specific [place] 1.017 Urine Protein 30 H Urine Glucose (UA) Negative Urine Ketones Negative Urine Occult Blood Large H Urine Nitrate Negative Urine Bilirubin Negative Urine Urobilinogen Less than 2 Ur Leukocyte Esterase Negative Urine RBC 2 Urine WBC 8 H Ur Squamous Epith Cells <1 Urine Bacteria Occasional H Hyaline Casts 8 Micro UA Comment Culture indicated Ur Microscopic Review Not Reportable Urine Culture Comments Culture indicated 06/16/18 06/16/18 08:08 12:52 WBC RBC Hgb Hct MCV MCH MCHC RDW Plt Count MPV Prelim Diff (Auto) WBC Differential Diff Scan Differential Comment Sodium Potassium Chloride Carbon Dioxide Anion Gap BUN Creatinine Estimated GFR POC Glucose 87 121 H Random Glucose Calcium Phosphorus Albumin Urine Color Urine Clarity Urine pH Ur Specific [place] Urine Protein Urine Glucose (UA) Urine Ketones Urine Occult Blood Urine Nitrate Urine Bilirubin Urine Urobilinogen Ur Leukocyte Esterase Urine RBC Urine WBC Ur Squamous Epith Cells Urine Bacteria Hyaline Casts Micro UA Comment Ur Microscopic Review Urine Culture Comments - Procedures 53-year-old male with acute hypoxic and hypercarbic respiratory failure and acute severe metabolic encephalopathy with associated multiorgan failure including renal failure and liver failure. Patient initially required intubation /ICU care; he has since stabilized and transferred to hospitalist service: 06/16: No significant changes to medical plan. Renal Acute renal failure secondary to rhabdomyolysis from statin. No obstruction. Significant proteinuria. Serology negative. Mild CKD at baseline prior to acute injury. Dialysis started 05/27 -Nephrology consulted -Continue dialysis -s/p dialysis 06/16 -monitor urine output -hold Lisinopril, other nephrotoxins Respiratory Acute hypoxic and hypercarbic respiratory failure: Status post intubation and extubation. Echo with EF 50%; suspected failure from ARF - Supplemental oxygen as needed. - Breathing treatments as needed. -Dialysis as below Cardiovascular Elevated troponin Atrial fibrillation Impression: Cardiology consulted. Echo- EF 50%. [id number] 1. Determined anticoagulation risk high for multiple risks -Continue Plavix -Continue to monitor labs/platelet count Statin induced rhabdomyolysis -Ongoing hemodialysis as above. -Continue to trend CK levels. Alcohol dependence: - Off [facility] protocol. - No signs of withdrawal currently Acute liver failure Impression: Downtrending LFT's. Transaminases >1000 05/26 ----> less than 100 . - Follow LFTs. -s/p lactulose (Ammonia <10 06/04) Acute diverticulitis/rectal pain Impression: 05/26 A/P CT with sigmoid diverticulitis. no reported recent symptoms. Cipro/Flagyl stopped -Continue to monitor Rash: Probable drug reaction: Cipro and Flagyl previously discontinued. Benadryl as needed. Continue Zyrtec and Pepcid. Tobacco dependence -Nicotine patch given DVT PPX Heparin 5K U q8hrs Code Status: Full code Discharge Planning: Pending renal improvement/Nephrology recommendations Assessment and Plan - Assessment (1) RADHA (acute kidney injury) Code(s): N17.9 - Acute kidney failure, unspecified Status: Acute (2) Acute renal failure Code(s): N17.9 - Acute kidney failure, unspecified Status: Acute (3) Transaminitis Code(s): R74.0 - Nonspecific elevation of levels of transaminase and lactic acid dehydrogenase [LDH] Status: Acute (4) Alcohol abuse Code(s): F10.10 - Alcohol abuse, uncomplicated Status: Acute (5) Rhabdomyolysis due to statin therapy Code(s): M62.82 - Rhabdomyolysis Status: Acute (6) NSTEMI (non-ST elevated myocardial infarction) Code(s): I21.4 - Non-ST elevation (NSTEMI) myocardial infarction Status: Acute - Plan 53-year-old male with acute hypoxic and hypercarbic respiratory failure and acute severe metabolic encephalopathy with associated multiorgan failure including renal failure and liver failure. Patient initially required intubation /ICU care; he has since stabilized and transferred to hospitalist service: Renal Acute renal failure secondary to rhabdomyolysis from statin. No obstruction. Significant proteinuria. Serology negative. Mild CKD at baseline prior to acute injury. Dialysis started 05/27 -Nephrology consulted -Continue dialysis -s/p dialysis 06/14; 4L removed -monitor urine output -hold Lisinopril, other nephrotoxins Respiratory Acute hypoxic and hypercarbic respiratory failure: Status post intubation and extubation. Echo with EF 50%; suspected failure from ARF - Supplemental oxygen as needed. - Breathing treatments as needed. -Dialysis as below Cardiovascular Elevated troponin Atrial fibrillation Impression: Cardiology consulted. Echo- EF 50%. [id number] 1. Determined anticoagulation risk high for multiple risks -Continue Plavix -Continue to monitor labs/platelet count Statin induced rhabdomyolysis -Ongoing hemodialysis as above. -Continue to trend CK levels. Alcohol dependence: - Off [facility] protocol. - No signs of withdrawal currently Acute liver failure Impression: Downtrending LFT's. Transaminases >1000 05/26 ----> less than 100 . - Follow LFTs. -s/p lactulose (Ammonia <10 06/04) Acute diverticulitis/rectal pain Impression: 05/26 A/P CT with sigmoid diverticulitis. no reported recent symptoms. Cipro/Flagyl stopped -Continue to monitor Rash: Probable drug reaction: Cipro and Flagyl previously discontinued. Benadryl as needed. Continue Zyrtec and Pepcid. Tobacco dependence -Nicotine patch given DVT PPX Heparin 5K U q8hrs Code Status: Full code Discharge Planning: Pending renal improvement/Nephrology recommendations (2) Acute renal failure Qualifiers: Acute renal failure type: unspecified Qualified Code(s): N17.9 - Acute kidney failure, unspecified
[2018-06-16] MEDS: Chlorhexidine 0.12% Oral Kit 15 ML UDC OROPHARYNG SCH ×2 (16:25→22:46)
[2018-06-17] MEDS: oxyCODONE/Acetaminophen 10/325 Tablet PO PRN ×7 (00:04→23:59)
[2018-06-17] MEDS: Oral Hygiene Kit OROPHARYNG SCH ×3 (04:05→17:43)
[2018-06-17] MEDS: Heparin - SQ 10,000 UNITS/ML Vial SQ SCH ×3 (05:51→21:49)
[2018-06-17] MEDS: Senna/Docusate Sodium 8.6/50 MG Tablet PO SCH ×2 (08:03→21:45)
[2018-06-17] MEDS: Calcium Acetate 667 MG Capsule PO SCH ×3 (08:03→17:42)
[2018-06-17] MEDS: Chlorhexidine 0.12% Oral Kit 15 ML UDC OROPHARYNG SCH ×2 (08:03→21:57)
[2018-06-17] MEDS: Polyethylene Glycol 3350 17 GM Packet PO SCH ×2 (08:04→21:46)
[2018-06-17] MEDS: Hydrocortisone Acetate 25 MG Supp RECTAL SCH ×3 (08:04→17:44)
[2018-06-17] MEDS: Famotidine 20 MG Tablet PO SCH ×2 (08:04→21:57)
--- NOTE | 2018-06-17 11:32 | P.PN ---
Subjective Interval history: Patient is seen walking around the room. Reports he feels pretty good today. No new shortness of breath. No chest pain. No nausea vomiting or diarrhea. Continues to be enthusiastic about his urine production. Physical Exam Vital signs: Vital Signs 06/16/18 12:00 06/16/18 16:00 06/16/18 20:00 Temperature 97.1 F L 97.3 F L 98.2 F Pulse Rate 104 H 106 H 89 Respiratory Rate 17 18 18 Blood Pressure 107/75 142/75 H 130/67 Pulse Oximetry 99 95 98 06/17/18 00:00 06/17/18 04:00 06/17/18 07:54 Temperature 98.4 F 97.8 F Pulse Rate 101 H 82 Respiratory Rate 17 17 17 Blood Pressure 112/64 109/59 L Pulse Oximetry 98 97 06/17/18 08:00 Temperature 98 F Pulse Rate 93 H Respiratory Rate 20 Blood Pressure 103/58 L Pulse Oximetry 96 Intake & Output 06/16/18 06/17/18 06/17/18 18:59 06:59 18:59 Intake Total 200 / 200 520 / 520 Output Total 4000 / 4000 400 / 400 Balance -3800 / -3800 120 / 120 Weight 99.9 kg Intake: IV 200 / 200 Flexbumin 25% Inj 100 ML @ 60 200 / 200 mls/hr IV.SIG WITH DIALYSIS PRN Rx#:[id number] Oral 520 / 520 Output: Urine 400 / 400 Hemodialysis Amount 4000 / 4000 Other: Date of Last Bowel Movement 06/11/18 06/16/18 06/16/18 # Bowel Movements 1 Narrative: GENERAL: Well-nourished, well-developed adult male in no obvious distress. SKIN: Warm and dry. Dialysis catheter in right chest wall. HEAD: Atraumatic. Normocephalic. CARDIOVASCULAR: Regular rate and rhythm. RESPIRATORY: No accessory muscle use. Clear to auscultation. Breath sounds equal bilaterally. GASTROINTESTINAL: Abdomen soft, non-tender, non-distended. Positive bowel sounds. MUSCULOSKELETAL: 2+ edema bilateral ankles. NEUROLOGICAL: Awake and alert. No obvious cranial nerve deficits. Motor grossly within normal limits. Normal speech. - Urinary Catheter Management Indwelling Urethral Catheter Cath placed during this visit: yes, but has since been removed by the nurse Reason for continuing: Decision to DC catheter Insertion date: 05/28/18 Insertion time: 13:30 Removal date: 05/29/18 Removal time: 16:15 Results - Labs CBC & Chem 7: 06/16/18 03:48 06/16/18 03:48 Laboratory Results - last 24 hr 06/16/18 06/16/18 06/16/18 12:52 17:35 23:55 POC Glucose 121 H 140 H 144 H 06/17/18 05:50 POC Glucose 149 H - Procedures 53-year-old male with acute hypoxic and hypercarbic respiratory failure and acute severe metabolic encephalopathy with associated multiorgan failure including renal failure and liver failure. Patient initially required intubation /ICU care; he has since stabilized and transferred to hospitalist service: 06/16: No significant changes to medical plan. Renal Acute renal failure secondary to rhabdomyolysis from statin. No obstruction. Significant proteinuria. Serology negative. Mild CKD at baseline prior to acute injury. Dialysis started 05/27 -Nephrology consulted -Continue dialysis -s/p dialysis 06/16 -monitor urine output -hold Lisinopril, other nephrotoxins Respiratory Acute hypoxic and hypercarbic respiratory failure: Status post intubation and extubation. Echo with EF 50%; suspected failure from ARF - Supplemental oxygen as needed. - Breathing treatments as needed. -Dialysis as below Cardiovascular Elevated troponin Atrial fibrillation Impression: Cardiology consulted. Echo- EF 50%. [id number] 1. Determined anticoagulation risk high for multiple risks -Continue Plavix -Continue to monitor labs/platelet count Statin induced rhabdomyolysis -Ongoing hemodialysis as above. -Continue to trend CK levels. Alcohol dependence: - Off CIOR protocol. - No signs of withdrawal currently Acute liver failure Impression: Downtrending LFT's. Transaminases >1000 05/26 ----> less than 100 . - Follow LFTs. -s/p lactulose (Ammonia <10 06/04) Acute diverticulitis/rectal pain Impression: 05/26 A/P CT with sigmoid diverticulitis. no reported recent symptoms. Cipro/Flagyl stopped -Continue to monitor Rash: Probable drug reaction: Cipro and Flagyl previously discontinued. Benadryl as needed. Continue Zyrtec and Pepcid. Tobacco dependence -Nicotine patch given DVT PPX Heparin 5K U q8hrs Code Status: Full code Discharge Planning: Pending renal improvement/Nephrology recommendations Assessment and Plan - Assessment (1) RADHA (acute kidney injury) Code(s): N17.9 - Acute kidney failure, unspecified Status: Acute (2) Acute renal failure Code(s): N17.9 - Acute kidney failure, unspecified Status: Acute (3) Transaminitis Code(s): R74.0 - Nonspecific elevation of levels of transaminase and lactic acid dehydrogenase [LDH] Status: Acute (4) Alcohol abuse Code(s): F10.10 - Alcohol abuse, uncomplicated Status: Acute (5) Rhabdomyolysis due to statin therapy Code(s): M62.82 - Rhabdomyolysis Status: Acute (6) NSTEMI (non-ST elevated myocardial infarction) Code(s): I21.4 - Non-ST elevation (NSTEMI) myocardial infarction Status: Acute - Plan 53-year-old male with acute hypoxic and hypercarbic respiratory failure and acute severe metabolic encephalopathy with associated multiorgan failure including renal failure and liver failure. Patient initially required intubation /ICU care; he has since stabilized and transferred to hospitalist service: 06/17: No changes in condition. Continue current medical plan. Renal Acute renal failure secondary to rhabdomyolysis from statin. No obstruction. Significant proteinuria. Serology negative. Mild CKD at baseline prior to acute injury. Dialysis started 05/27 -Nephrology consulted -Continue dialysis -monitor urine output -hold Lisinopril, other nephrotoxins Respiratory Acute hypoxic and hypercarbic respiratory failure: Status post intubation and extubation. Echo with EF 50%; suspected failure from ARF - Supplemental oxygen as needed. - Breathing treatments as needed. -Dialysis as below Cardiovascular Elevated troponin Atrial fibrillation Impression: Cardiology consulted. Echo- EF 50%. [id number] 1. Determined anticoagulation risk high for multiple risks -Continue Plavix -Continue to monitor labs/platelet count Statin induced rhabdomyolysis -Ongoing hemodialysis as above. -Continue to trend CK levels. Alcohol dependence: - Off CIOR protocol. - No signs of withdrawal currently Acute liver failure Impression: Downtrending LFT's. Transaminases >1000 05/26 ----> less than 100 . - Follow LFTs. -s/p lactulose (Ammonia <10 06/04) Acute diverticulitis/rectal pain Impression: 05/26 A/P CT with sigmoid diverticulitis. no reported recent symptoms. Cipro/Flagyl stopped -Continue to monitor Rash: Probable drug reaction: Cipro and Flagyl previously discontinued. Benadryl as needed. Continue Zyrtec and Pepcid. Tobacco dependence -Nicotine patch given DVT PPX Heparin 5K U q8hrs Code Status: Full code Discharge Planning: Pending renal improvement/Nephrology recommendations (2) Acute renal failure Qualifiers: Acute renal failure type: unspecified Qualified Code(s): N17.9 - Acute kidney failure, unspecified
--- NOTE | 2018-06-17 11:51 | P.PNCA ---
Subjective Interval history: assymptomatic, in nad Medications and Allergies Active Medications: Active Medications Acetaminophen (Tylenol) 650 mg PO Q4H PRN PRN Reason: Temp > 100.4 Acetaminophen (Tylenol) 650 mg PO UNSCH PRN PRN Reason: SEE LABEL COMMENTS Acetaminophen (Tylenol) 500 mg PO Q6H PRN PRN Reason: PAIN 1-6 Al Hydroxide/Mg Hydroxide (Milk Of Magnpineda Liq) 30 ml PO Q12H PRN PRN Reason: Mild Constipation Albuterol (Duoneb Neb (Prn)) 1 ampul NEB Q2HR NEB PRN PRN Reason: WHEEZING Bisacodyl (Dulcolax Supp) 10 mg RECTAL DAILY PRN PRN Reason: if no BM in last 24h Last Admin: 06/10/18 05:49 Dose: 10 mg Bumetanide (Bumex Inj) 2 mg IV.PUSH BID@0900,1800 [facility] Last Admin: 06/17/18 08:09 Dose: 2 mg Calcium Acetate (Phoslo) 667 mg PO TID [facility] Last Admin: 06/17/18 08:03 Dose: 667 mg Cetirizine HCl (Zyrtec) 10 mg PO BID [facility] Last Admin: 06/17/18 08:03 Dose: 10 mg Chlorhexidine Gluconate (Peridex 0.12% Oral Kit) 15 ml OROPHARYNG BID@0800, 2000 [facility] Last Admin: 06/17/18 08:03 Dose: Not Given Clopidogrel Bisulfate (Plavix) 75 mg PO DAILY [facility] Last Admin: 06/17/18 08:02 Dose: 75 mg Dextrose (D50w Syringe) 50 ml IV.PUSH UNSCH PRN PRN Reason: PER HYPOGLYCEMIA PROTOCOL Diphenhydramine HCl (Benadryl) 25 mg PO Q4H PRN PRN Reason: ITCHING Last Admin: 06/17/18 08:03 Dose: 25 mg Diphenhydramine HCl (Benadryl) 50 mg PO Q6H PRN PRN Reason: ITCHING Last Admin: 06/16/18 04:01 Dose: 50 mg Famotidine (Pepcid) 10 mg PO BID [facility] Last Admin: 06/17/18 08:04 Dose: Not Given Gelatin (Gelfoam 12 Mm/7 Mm Topical) 1 foam TOPICAL PRN PRN PRN Reason: help stop bleeding from site Gentamicin Sulfate (Gentamicin Inj) 20 mg OTHER WITH DIALYSIS PRN PRN Reason: Dwell Gentamycin Lock Last Admin: 06/11/18 10:43 Dose: 20 mg Glucagon (Glucagon Inj) 1 mg IM ONCE PRN PRN Reason: blood sugar < 60, no iv access Haloperidol Lactate (Haldol Inj) 5 mg IV.PUSH Q15M PRN PRN Reason: for severe agitation Heparin Sodium (Porcine) (Heparin Inj) 5,000 units SQ Q8HR WEI Last Admin: 06/17/18 05:51 Dose: 5,000 units Heparin Sodium (Porcine) (Heparin Inj) 8,000 units OTHER WITH DIALYSIS PRN PRN Reason: for machine prime Last Admin: 06/04/18 12:39 Dose: 3,500 units Heparin Sodium (Porcine) (Heparin Inj) 1,000 units OTHER WITH DIALYSIS PRN PRN Reason: Dwell Heparin to Fill Catheter Last Admin: 06/11/18 10:42 Dose: 1,000 units Hydrocortisone Acetate (Hemorrhoidal Hc Supp) 25 mg RECTAL TID WEI Last Admin: 06/17/18 08:04 Dose: 25 mg Hydrocortisone Acetate (Hydrocortisone 1% Cream) 1 applicatio TOPICAL TID PRN PRN Reason: RASH Last Admin: 06/16/18 16:09 Dose: 1 applicatio Albumin Human (Flexbumin 25% Inj) 100 mls @ 60 mls/hr IV.SIG WITH DIALYSIS PRN PRN Reason: hypotension / volume replace Last Infusion: 06/16/18 09:02 Dose: Infused Sodium Chloride (Ns Inj) 1,000 mls @ 0 mls/hr OTHER .Q0M PRN PRN Reason: for prime and rinse back Sodium Chloride (Ns Inj) 1,000 mls @ 200 mls/hr OTHER .Q5H PRN PRN Reason: for dialyzer flush PRN Sodium Chloride (Ns Inj) 1,000 mls @ 0 mls/hr IV.CONT .Q0M PRN PRN Reason: hypotension / volume replace Vasopressin 40 unit/ Dextrose 100 mls @ 6 mls/hr IV.CONT CONT WEI; Protocol Last Infusion: 06/01/18 19:33 Dose: Infused Insulin Human Regular (Novolin R Inj) 1 units SQ Q6HR WEI; Protocol Last Admin: 06/17/18 06:27 Dose: Not Given Lactulose (Lactulose Liq) 30 ml PO BID WEI Last Admin: 06/17/18 08:03 Dose: 30 ml Nicotine (Habitrol 14 Mg Patch.24 Hr) 1 patch T-DERMAL DAILY [facility] Last Admin: 06/17/18 08:02 Dose: 1 patch Nitroglycerin (Nitrostat Sl) 0.4 mg SL Q5M PRN PRN Reason: CHEST PAIN Ondansetron HCl (Zofran Inj) 4 mg IV.PUSH Q6H PRN PRN Reason: NAUSEA OR VOMITING Last Admin: 05/30/18 20:46 Dose: 4 mg Ondansetron HCl (Zofran Inj) 4 mg IV.PUSH UNSCH PRN PRN Reason: NAUSEA OR VOMITING Oxycodone/Acetaminophen (Percocet 10/325 Mg) 1 tab PO Q4H PRN PRN Reason: PAIN SCALE 7 TO 10 SEVERE Last Admin: 06/17/18 08:03 Dose: 1 tab Pantoprazole Sodium (Protonix) 40 mg PO DAILY [facility] Last Admin: 06/17/18 08:04 Dose: 40 mg Patch Removal (Remove Old Patch) 1 each T-DERMAL DAILY [facility] Last Admin: 06/17/18 08:04 Dose: 1 each Polyethylene Glycol (Miralax) 17 gm PO BID [facility] Last Admin: 06/17/18 08:04 Dose: 17 gm Senna/Docusate Sodium (Najma-Colace) 1 tab PO BID [facility] Last Admin: 06/17/18 08:03 Dose: 1 tab Sennosides (Senokot) 17.2 mg PO Q12H PRN PRN Reason: Moderate Constipation Sodium Chloride (Ns Flush) 5 ml IV.FLUSH PRN PRN PRN Reason: flush each lumen during HD Sodium Chloride (Ns Flush) 2 ml IV.FLUSH UNSCH PRN PRN Reason: FLUSH AFTER USING IV ACCESS Terbutaline Sulfate (Brethine Inj) 1 mg SQ UNSCH PRN PRN Reason: For Extravasation Thiamine HCl (Vitamin B1) 100 mg PO DAILY [facility] Last Admin: 06/17/18 08:03 Dose: 100 mg Zolpidem Tartrate (Ambien) 5 mg PO HS PRN PRN Reason: INSOMNIA Last Admin: 06/01/18 01:51 Dose: 5 mg Allergies Allergy/AdvReac Type Severity Reaction Status Date / Time [id number] Reductase AdvReac Urinary Verified 06/05/18 16:04 Inhibitor Freq (Inc/Dec) Home Medications Medication Instructions Recorded Confirmed Type atorvastatin 80 mg PO DAILY 04/30/18 05/26/18 History lisinopril 10 mg PO DAILY 04/30/18 05/26/18 History Physical Exam Vital signs: Vital Signs 06/16/18 12:00 06/16/18 16:00 06/16/18 20:00 Temperature 97.1 F L 97.3 F L 98.2 F Pulse Rate 104 H 106 H 89 Respiratory Rate 17 18 18 Blood Pressure 107/75 142/75 H 130/67 Pulse Oximetry 99 95 98 06/17/18 00:00 06/17/18 04:00 06/17/18 07:54 Temperature 98.4 F 97.8 F Pulse Rate 101 H 82 Respiratory Rate 17 17 17 Blood Pressure 112/64 109/59 L Pulse Oximetry 98 97 06/17/18 08:00 Temperature 98 F Pulse Rate 93 H Respiratory Rate 20 Blood Pressure 103/58 L Pulse Oximetry 96 Intake & Output 06/16/18 06/17/18 06/17/18 18:59 06:59 18:59 Intake Total 200 / 200 520 / 520 Output Total 4000 / 4000 400 / 400 Balance -3800 / -3800 120 / 120 Weight 99.9 kg Intake: IV 200 / 200 Flexbumin 25% Inj 100 ML @ 60 200 / 200 mls/hr IV.SIG WITH DIALYSIS PRN Rx#:[id number] Oral 520 / 520 Output: Urine 400 / 400 Hemodialysis Amount 4000 / 4000 Other: Date of Last Bowel Movement 06/11/18 06/16/18 06/16/18 # Bowel Movements 1 - Urinary Catheter Management Indwelling Urethral Catheter Cath placed during this visit: yes, but has since been removed by the nurse Reason for continuing: Decision to DC catheter Insertion date: 05/28/18 Insertion time: 13:30 Removal date: 05/29/18 Removal time: 16:15 Results 06/16/18 03:48 06/16/18 03:48 CBC 06/16/18 Range/Units 03:48 WBC 6.3 (4.0-11.0) th/mm3 RBC 2.15 L (4.50-5.90) mil/mm3 Hgb 8.0 L (13.0-17.0) gm/dL Hct 24.4 L (39.0-51.0) % Plt Count 218 (150-450) th/mm3 Comprehensive Metabolic Panel 06/16/18 Range/Units 03:48 Sodium 136 (136-145) meq/L Potassium 4.2 (3.5-5.1) meq/L Chloride 96 L (98-107) meq/L Carbon Dioxide 27.7 (21.0-32.0) meq/L BUN 50 H (7-18) mg/dL Creatinine 8.12 H (0.60-1.30) mg/dL Calcium 8.9 (8.5-10.1) mg/dL Albumin 3.3 L (3.4-5.0) g/dL Intake and Output 06/16/18 06/17/18 06/17/18 22:59 06:59 14:59 Intake Total 520 / 520 Output Total 400 / 400 Balance 120 / 120 Intake: Oral 520 / 520 Output: Urine 400 / 400 Other: Date of Last Bowel Movement 06/16/18 06/16/18 # Bowel Movements 1 Weight 99.9 kg Assessment and Plan - Assessment (1) Thrombocytopenia Code(s): D69.6 - Thrombocytopenia, unspecified Status: Acute (2) Anemia Code(s): D64.9 - Anemia, unspecified Status: Acute (3) Leukemia Code(s): C95.90 - Leukemia, unspecified not having achieved remission Status: Acute (4) NSTEMI (non-ST elevated myocardial infarction) Code(s): I21.4 - Non-ST elevation (NSTEMI) myocardial infarction Status: Acute (5) Tobacco abuse Code(s): Z72.0 - Tobacco use Status: Acute (6) RADHA (acute kidney injury) Code(s): N17.9 - Acute kidney failure, unspecified Status: Acute (7) ETOH abuse Code(s): F10.10 - Alcohol abuse, uncomplicated Status: Acute (8) Rectal pain Code(s): K62.89 - Other specified diseases of anus and rectum Status: Deleted (9) Metabolic acidosis Code(s): E87.2 - Acidosis Status: Acute (10) Diverticulitis Code(s): K57.92 - Diverticulitis of intestine, part unspecified, without perforation or abscess without bleeding Status: Acute (11) Acute renal failure Code(s): N17.9 - Acute kidney failure, unspecified Status: Acute (12) Transaminitis Code(s): R74.0 - Nonspecific elevation of levels of transaminase and lactic acid dehydrogenase [LDH] Status: Acute (13) Alcohol abuse Code(s): F10.10 - Alcohol abuse, uncomplicated Status: Acute - Plan 1.) NSTEMI - suspect trop elevation due to arf which appears to be due to rhabdomyolysis, he is assymptomatic 2.) Afib - 2d echo ef=50%, [id number] score=1, male gender, ac held due to unstable platelet count, hgb and liver function, continue to f/u trends in lfts , hgb, plt ct; rash started @ time aspirin 81 mg qd started 06/01/18, will dc aspirin and start plavix 75 mg qd, 06/05/18, no improvement in rash, i explained to patient that if due to aspirin may take several days for plasma levels of aspirin to decrease and to see improvement if rash is due to aspirin, ; not good candidate for ac with noac or coumadin due to alcohol abuse, liver failure , fall risk and unstable hgb and platelet count 3.) Respiratory failure - ef=50% on echo, assymptomatic 05/27/18, possibly due to volume overload from arf, improved with dialysis 4.) Rash - improved (11) Acute renal failure Qualifiers: Acute renal failure type: unspecified Qualified Code(s): N17.9 - Acute kidney failure, unspecified
[2018-06-17 15:11] LABS: Calcium 8.9 mg/dL (8.5-10.1); Carbon Dioxide 30.2 meq/L (21.0-32.0); Potassium 3.7 meq/L (3.5-5.1)
--- NOTE | 2018-06-17 15:11 | P.PNNP ---
Subjective Interval history: patient had dialysis yesterday. 4 liters removed. He reports that he had about 300 ml of urine today. He had questions regarding discharge. Physical Exam Vital signs: Vital Signs 06/16/18 16:00 06/16/18 20:00 06/17/18 00:00 Temperature 97.3 F L 98.2 F 98.4 F Pulse Rate 106 H 89 101 H Respiratory Rate 18 18 17 Blood Pressure 142/75 H 130/67 112/64 Pulse Oximetry 95 98 98 06/17/18 04:00 06/17/18 07:54 06/17/18 08:00 Temperature 97.8 F 98 F Pulse Rate 82 93 H Respiratory Rate 17 17 20 Blood Pressure 109/59 L 103/58 L Pulse Oximetry 97 96 06/17/18 12:00 Temperature 98.2 F Pulse Rate 102 H Respiratory Rate 19 Blood Pressure 145/70 H Pulse Oximetry 96 Intake & Output 06/16/18 06/17/18 06/17/18 18:59 06:59 18:59 Intake Total 200 / 200 520 / 520 Output Total 4000 / 4000 400 / 400 Balance -3800 / -3800 120 / 120 Weight 99.9 kg Intake: IV 200 / 200 Flexbumin 25% Inj 100 ML @ 60 200 / 200 mls/hr IV.SIG WITH DIALYSIS PRN Rx#:[id number] Oral 520 / 520 Output: Urine 400 / 400 Hemodialysis Amount 4000 / 4000 Other: Date of Last Bowel Movement 06/11/18 06/16/18 06/16/18 # Bowel Movements 1 Narrative: GENERAL: Well-nourished, well-developed adult male in no obvious distress. SKIN: Warm and dry. PermCath in right IJ HEAD: Atraumatic. Normocephalic. CARDIOVASCULAR: Regular rate and rhythm. RESPIRATORY: No accessory muscle use. Clear to auscultation. Breath sounds equal bilaterally. GASTROINTESTINAL: Abdomen soft, non-tender, non-distended. Positive bowel sounds. MUSCULOSKELETAL: 2+ edema bilateral ankles. NEUROLOGICAL: Awake and alert. No obvious cranial nerve deficits. Motor grossly within normal limits. Normal speech. - Urinary Catheter Management Indwelling Urethral Catheter Cath placed during this visit: yes, but has since been removed by the nurse Reason for continuing: Decision to DC catheter Insertion date: 05/28/18 Insertion time: 13:30 Removal date: 05/29/18 Removal time: 16:15 Assessment and Plan - Assessment (1) RADHA (acute kidney injury) Code(s): N17.9 - Acute kidney failure, unspecified Status: Acute Plan: He has underlying CKD, baseline creatinine was 1.5-1.6 earlier this year. RADHA is due to rhabdomyolysis. Dialysis initiated on 05/27. Continue to monitor urine output. Serologies negative. Avoid nephrotoxic agents. Urine output may be improving. Continue diuresis with Bumex. Fluid restriction has been advised. Watch for renal recovery. Dialysis prn. (2) ETOH abuse Code(s): F10.10 - Alcohol abuse, uncomplicated Status: Acute Plan: Cessation has been advised. - Attending Attestation Outpatient dialysis facilities can dialyze patients with a diagnosis of RADHA. Unfortunately this patient does not appear to have insurance. His diagnosis is RADHA due to rhabdomyolysis, has not reached ESRD
[2018-06-17] MEDS ORDERED: Naloxone Inj 0.4 MG/ML Vial IV.PUSH PRN (17:55)
[2018-06-17] MEDS: Morphine Inj 4 MG/ML Vial IV.PUSH PRN (21:53)
[2018-06-18] MEDS: Oral Hygiene Kit OROPHARYNG SCH ×4 (01:37→17:59)
[2018-06-18] MEDS: Morphine Inj 4 MG/ML Vial IV.PUSH PRN ×6 (01:59→22:14)
[2018-06-18] MEDS: oxyCODONE/Acetaminophen 10/325 Tablet PO PRN ×6 (03:52→23:57)
[2018-06-18 05:25] LABS: Albumin 3.4 g/dL (3.4-5.0); Calcium 9.1 mg/dL (8.5-10.1); Carbon Dioxide 30.6 meq/L (21.0-32.0)
[2018-06-18 05:26] LABS: Phosphorus 4.7 mg/dL (2.5-4.9)
[2018-06-18] MEDS: Heparin - SQ 10,000 UNITS/ML Vial SQ SCH ×3 (06:30→22:14)
[2018-06-18] MEDS: Calcium Acetate 667 MG Capsule PO SCH ×3 (08:07→18:09)
[2018-06-18] MEDS: Senna/Docusate Sodium 8.6/50 MG Tablet PO SCH ×2 (08:09→20:14)
[2018-06-18] MEDS: Polyethylene Glycol 3350 17 GM Packet PO SCH ×2 (08:13→20:13)
[2018-06-18] MEDS: Chlorhexidine 0.12% Oral Kit 15 ML UDC OROPHARYNG SCH ×2 (08:14→22:23)
[2018-06-18] MEDS: Hydrocortisone Acetate 25 MG Supp RECTAL SCH ×3 (08:15→18:11)
[2018-06-18] MEDS: Famotidine 20 MG Tablet PO SCH ×2 (08:15→22:22)
--- NOTE | 2018-06-18 10:55 | P.PNCA ---
Subjective Interval history: denies chest pain, states he made 800cc u/o last shift Medications and Allergies Active Medications: Active Medications Acetaminophen (Tylenol) 650 mg PO Q4H PRN PRN Reason: Temp > 100.4 Acetaminophen (Tylenol) 650 mg PO UNSCH PRN PRN Reason: SEE LABEL COMMENTS Acetaminophen (Tylenol) 500 mg PO Q6H PRN PRN Reason: PAIN 1-6 Al Hydroxide/Mg Hydroxide (Milk Of Magnpineda Liq) 30 ml PO Q12H PRN PRN Reason: Mild Constipation Albuterol (Duoneb Neb (Prn)) 1 ampul NEB Q2HR NEB PRN PRN Reason: WHEEZING Bisacodyl (Dulcolax Supp) 10 mg RECTAL DAILY PRN PRN Reason: if no BM in last 24h Last Admin: 06/10/18 05:49 Dose: 10 mg Bumetanide (Bumex Inj) 2 mg IV.PUSH BID@0900,1800 PENDING SALE TO [facility] Last Admin: 06/18/18 08:14 Dose: Not Given Calcium Acetate (Phoslo) 667 mg PO TID PENDING SALE TO [facility] Last Admin: 06/18/18 08:07 Dose: 667 mg Cetirizine HCl (Zyrtec) 10 mg PO BID PENDING SALE TO [facility] Last Admin: 06/18/18 08:09 Dose: 10 mg Chlorhexidine Gluconate (Peridex 0.12% Oral Kit) 15 ml OROPHARYNG BID@0800, 2000 PENDING SALE TO [facility] Last Admin: 06/18/18 08:14 Dose: Not Given Clopidogrel Bisulfate (Plavix) 75 mg PO DAILY PENDING SALE TO [facility] Last Admin: 06/18/18 08:08 Dose: 75 mg Dextrose (D50w Syringe) 50 ml IV.PUSH UNSCH PRN PRN Reason: PER HYPOGLYCEMIA PROTOCOL Diphenhydramine HCl (Benadryl) 25 mg PO Q4H PRN PRN Reason: ITCHING Last Admin: 06/18/18 09:00 Dose: 25 mg Diphenhydramine HCl (Benadryl) 50 mg PO Q6H PRN PRN Reason: ITCHING Last Admin: 06/18/18 06:38 Dose: 50 mg Famotidine (Pepcid) 10 mg PO BID PENDING SALE TO [facility] Last Admin: 06/18/18 08:15 Dose: Not Given Gelatin (Gelfoam 12 Mm/7 Mm Topical) 1 foam TOPICAL PRN PRN PRN Reason: help stop bleeding from site Gentamicin Sulfate (Gentamicin Inj) 20 mg OTHER WITH DIALYSIS PRN PRN Reason: Dwell Gentamycin Lock Last Admin: 06/11/18 10:43 Dose: 20 mg Glucagon (Glucagon Inj) 1 mg IM ONCE PRN PRN Reason: blood sugar < 60, no iv access Haloperidol Lactate (Haldol Inj) 5 mg IV.PUSH Q15M PRN PRN Reason: for severe agitation Heparin Sodium (Porcine) (Heparin Inj) 5,000 units SQ Q8HR WEI Last Admin: 06/18/18 06:30 Dose: 5,000 units Heparin Sodium (Porcine) (Heparin Inj) 8,000 units OTHER WITH DIALYSIS PRN PRN Reason: for machine prime Last Admin: 06/04/18 12:39 Dose: 3,500 units Heparin Sodium (Porcine) (Heparin Inj) 1,000 units OTHER WITH DIALYSIS PRN PRN Reason: Dwell Heparin to Fill Catheter Last Admin: 06/11/18 10:42 Dose: 1,000 units Hydrocortisone Acetate (Hemorrhoidal Hc Supp) 25 mg RECTAL TID WEI Last Admin: 06/18/18 08:15 Dose: 25 mg Hydrocortisone Acetate (Hydrocortisone 1% Cream) 1 applicatio TOPICAL TID PRN PRN Reason: RASH Last Admin: 06/16/18 16:09 Dose: 1 applicatio Albumin Human (Flexbumin 25% Inj) 100 mls @ 60 mls/hr IV.SIG WITH DIALYSIS PRN PRN Reason: hypotension / volume replace Last Infusion: 06/16/18 09:02 Dose: Infused Sodium Chloride (Ns Inj) 1,000 mls @ 0 mls/hr OTHER .Q0M PRN PRN Reason: for prime and rinse back Sodium Chloride (Ns Inj) 1,000 mls @ 200 mls/hr OTHER .Q5H PRN PRN Reason: for dialyzer flush PRN Sodium Chloride (Ns Inj) 1,000 mls @ 0 mls/hr IV.CONT .Q0M PRN PRN Reason: hypotension / volume replace Vasopressin 40 unit/ Dextrose 100 mls @ 6 mls/hr IV.CONT CONT WEI; Protocol Last Infusion: 06/01/18 19:33 Dose: Infused Insulin Human Regular (Novolin R Inj) 1 units SQ Q6HR WEI; Protocol Last Admin: 06/18/18 06:36 Dose: Not Given Lactulose (Lactulose Liq) 30 ml PO BID PENDING SALE TO [facility] Last Admin: 06/18/18 08:08 Dose: 30 ml Morphine Sulfate (Morphine Inj) 4 mg IV.PUSH Q4H PRN PRN Reason: BREAKTHROUGH PAIN Last Admin: 06/18/18 06:30 Dose: 4 mg Naloxone HCl (Narcan Inj) 0.4 mg IV.PUSH UNSCH PRN PRN Reason: SEE LABEL COMMENTS Nicotine (Habitrol 14 Mg Patch.24 Hr) 1 patch T-DERMAL DAILY PENDING SALE TO [facility] Last Admin: 06/18/18 08:10 Dose: 1 patch Nitroglycerin (Nitrostat Sl) 0.4 mg SL Q5M PRN PRN Reason: CHEST PAIN Ondansetron HCl (Zofran Inj) 4 mg IV.PUSH Q6H PRN PRN Reason: NAUSEA OR VOMITING Last Admin: 05/30/18 20:46 Dose: 4 mg Ondansetron HCl (Zofran Inj) 4 mg IV.PUSH UNSCH PRN PRN Reason: NAUSEA OR VOMITING Oxycodone/Acetaminophen (Percocet 10/325 Mg) 1 tab PO Q4H PRN PRN Reason: PAIN SCALE 7 TO 10 SEVERE Last Admin: 06/18/18 08:11 Dose: 1 tab Pantoprazole Sodium (Protonix) 40 mg PO DAILY PENDING SALE TO [facility] Last Admin: 06/18/18 08:10 Dose: 40 mg Patch Removal (Remove Old Patch) 1 each T-DERMAL DAILY PENDING SALE TO [facility] Last Admin: 06/18/18 08:15 Dose: 1 each Polyethylene Glycol (Miralax) 17 gm PO BID PENDING SALE TO [facility] Last Admin: 06/18/18 08:13 Dose: 17 gm Senna/Docusate Sodium (Najma-Colace) 1 tab PO BID PENDING SALE TO [facility] Last Admin: 06/18/18 08:09 Dose: 1 tab Sennosides (Senokot) 17.2 mg PO Q12H PRN PRN Reason: Moderate Constipation Sodium Chloride (Ns Flush) 5 ml IV.FLUSH PRN PRN PRN Reason: flush each lumen during HD Sodium Chloride (Ns Flush) 2 ml IV.FLUSH UNSCH PRN PRN Reason: FLUSH AFTER USING IV ACCESS Terbutaline Sulfate (Brethine Inj) 1 mg SQ UNSCH PRN PRN Reason: For Extravasation Thiamine HCl (Vitamin B1) 100 mg PO DAILY PENDING SALE TO [facility] Last Admin: 06/18/18 08:13 Dose: 100 mg Zolpidem Tartrate (Ambien) 5 mg PO HS PRN PRN Reason: INSOMNIA Last Admin: 06/01/18 01:51 Dose: 5 mg Allergies Allergy/AdvReac Type Severity Reaction Status Date / Time [id number] Reductase AdvReac Urinary Verified 06/05/18 16:04 Inhibitor Freq (Inc/Dec) Home Medications Medication Instructions Recorded Confirmed Type atorvastatin 80 mg PO DAILY 04/30/18 05/26/18 History lisinopril 10 mg PO DAILY 04/30/18 05/26/18 History Physical Exam Vital signs: Vital Signs 06/17/18 12:00 06/17/18 16:00 06/17/18 20:00 Temperature 98.2 F 98 F 97.7 F Pulse Rate 102 H 88 83 Respiratory Rate 19 19 20 Blood Pressure 145/70 H 127/68 110/71 Pulse Oximetry 96 98 99 06/18/18 00:00 06/18/18 04:00 06/18/18 08:00 Temperature 98.0 F 97.4 F L 97.8 F Pulse Rate 84 85 Respiratory Rate 20 20 18 Blood Pressure 135/65 136/72 147/83 H Pulse Oximetry 98 98 99 Intake & Output 06/17/18 06/18/18 06/18/18 18:59 06:59 18:59 Intake Total 1200 / 1200 1200 / 1200 Balance 1200 / 1200 1200 / 1200 Intake: Oral 1200 / 1200 1200 / 1200 Other: Post Void Residual 400 # Voids 2 Date of Last Bowel Movement 06/16/18 06/17/18 06/18/18 # Bowel Movements 2 - Urinary Catheter Management Indwelling Urethral Catheter Cath placed during this visit: yes, but has since been removed by the nurse Reason for continuing: Decision to DC catheter Insertion date: 05/28/18 Insertion time: 13:30 Removal date: 05/29/18 Removal time: 16:15 Results 06/16/18 03:48 06/18/18 03:51 Comprehensive Metabolic Panel 06/17/18 06/18/18 Range/Units 14:30 03:51 Sodium 140 136 (136-145) meq/L Potassium 3.7 4.0 (3.5-5.1) meq/L Chloride 99 96 L (98-107) meq/L Carbon Dioxide 30.2 30.6 (21.0-32.0) meq/L BUN 40 H 46 H (7-18) mg/dL Creatinine 6.45 H 6.92 H (0.60-1.30) mg/dL Calcium 8.9 9.1 (8.5-10.1) mg/dL Albumin 3.4 (3.4-5.0) g/dL Intake and Output 06/17/18 06/18/18 06/18/18 22:59 06:59 14:59 Intake Total 1200 / 1200 1200 / 1200 Balance 1200 / 1200 1200 / 1200 Intake: Oral 1200 / 1200 1200 / 1200 Other: Post Void Residual 400 # Voids 2 Date of Last Bowel Movement 06/17/18 06/18/18 # Bowel Movements 2 Assessment and Plan - Assessment (1) Thrombocytopenia Code(s): D69.6 - Thrombocytopenia, unspecified Status: Acute (2) Anemia Code(s): D64.9 - Anemia, unspecified Status: Acute (3) Leukemia Code(s): C95.90 - Leukemia, unspecified not having achieved remission Status: Acute (4) NSTEMI (non-ST elevated myocardial infarction) Code(s): I21.4 - Non-ST elevation (NSTEMI) myocardial infarction Status: Acute (5) Tobacco abuse Code(s): Z72.0 - Tobacco use Status: Acute (6) RADHA (acute kidney injury) Code(s): N17.9 - Acute kidney failure, unspecified Status: Acute (7) ETOH abuse Code(s): F10.10 - Alcohol abuse, uncomplicated Status: Acute (8) Rectal pain Code(s): K62.89 - Other specified diseases of anus and rectum Status: Deleted (9) Metabolic acidosis Code(s): E87.2 - Acidosis Status: Acute (10) Diverticulitis Code(s): K57.92 - Diverticulitis of intestine, part unspecified, without perforation or abscess without bleeding Status: Acute (11) Acute renal failure Code(s): N17.9 - Acute kidney failure, unspecified Status: Acute (12) Transaminitis Code(s): R74.0 - Nonspecific elevation of levels of transaminase and lactic acid dehydrogenase [LDH] Status: Acute (13) Alcohol abuse Code(s): F10.10 - Alcohol abuse, uncomplicated Status: Acute - Plan 1.) NSTEMI - suspect trop elevation due to arf which appears to be due to rhabdomyolysis, he is assymptomatic 2.) Afib - 2d echo ef=50%, [id number] score=1, male gender, ac held due to unstable platelet count, hgb and liver function, continue to f/u trends in lfts , hgb, plt ct; rash started @ time aspirin 81 mg qd started 06/01/18, will dc aspirin and start plavix 75 mg qd, 06/05/18, no improvement in rash, i explained to patient that if due to aspirin may take several days for plasma levels of aspirin to decrease and to see improvement if rash is due to aspirin, ; not good candidate for ac with noac or coumadin due to alcohol abuse, liver failure , fall risk and unstable hgb and platelet count 3.) Respiratory failure - ef=50% on echo, assymptomatic 05/27/18, possibly due to volume overload from arf, improved with dialysis 4.) Rash - improved (11) Acute renal failure Qualifiers: Acute renal failure type: unspecified Qualified Code(s): N17.9 - Acute kidney failure, unspecified
--- NOTE | 2018-06-18 11:43 | P.PN ---
Subjective Interval history: Patient seen ambulating around room. Expresses that he would like to eventually get out of here. No new complaints or concerns. Physical Exam Vital signs: Vital Signs 06/17/18 12:00 06/17/18 16:00 06/17/18 20:00 Temperature 98.2 F 98 F 97.7 F Pulse Rate 102 H 88 83 Respiratory Rate 19 19 20 Blood Pressure 145/70 H 127/68 110/71 Pulse Oximetry 96 98 99 06/18/18 00:00 06/18/18 04:00 06/18/18 08:00 Temperature 98.0 F 97.4 F L 97.8 F Pulse Rate 84 85 Respiratory Rate 20 20 18 Blood Pressure 135/65 136/72 147/83 H Pulse Oximetry 98 98 99 Intake & Output 06/17/18 06/18/18 06/18/18 18:59 06:59 18:59 Intake Total 1200 / 1200 1200 / 1200 Balance 1200 / 1200 1200 / 1200 Intake: Oral 1200 / 1200 1200 / 1200 Other: Post Void Residual 400 # Voids 2 Date of Last Bowel Movement 06/16/18 06/17/18 06/18/18 # Bowel Movements 2 Narrative: GENERAL: Well-nourished, well-developed adult male in no obvious distress. SKIN: Warm and dry. PermCath in right IJ HEAD: Atraumatic. Normocephalic. CARDIOVASCULAR: Regular rate and rhythm. RESPIRATORY: No accessory muscle use. Clear to auscultation. Breath sounds equal bilaterally. GASTROINTESTINAL: Abdomen soft, non-tender, non-distended. Positive bowel sounds. MUSCULOSKELETAL: 2-3+ edema bilateral ankles. NEUROLOGICAL: Awake and alert. No obvious cranial nerve deficits. Motor grossly within normal limits. Normal speech. - Urinary Catheter Management Indwelling Urethral Catheter Cath placed during this visit: yes, but has since been removed by the nurse Reason for continuing: Decision to DC catheter Insertion date: 05/28/18 Insertion time: 13:30 Removal date: 05/29/18 Removal time: 16:15 Results - Labs CBC & Chem 7: 06/16/18 03:48 06/18/18 03:51 Laboratory Results - last 24 hr 06/17/18 06/17/18 06/18/18 14:30 17:16 00:00 Sodium 140 Potassium 3.7 Chloride 99 Carbon Dioxide 30.2 Anion Gap 11 BUN 40 H Creatinine 6.45 H Estimated GFR 9 L POC Glucose 118 H 132 H Random Glucose 138 H Calcium 8.9 Phosphorus Albumin 06/18/18 06/18/18 06/18/18 03:51 06:29 11:23 Sodium 136 Potassium 4.0 Chloride 96 L Carbon Dioxide 30.6 Anion Gap 9 BUN 46 H Creatinine 6.92 H Estimated GFR 8 L POC Glucose 132 H 129 H Random Glucose 111 H Calcium 9.1 Phosphorus 4.7 Albumin 3.4 Microbiology 06/16/18 07:05 Clean Catch Urine Urine Culture - Final No growth in 48 hours - Procedures 53-year-old male with acute hypoxic and hypercarbic respiratory failure and acute severe metabolic encephalopathy with associated multiorgan failure including renal failure and liver failure. Patient initially required intubation /ICU care; he has since stabilized and transferred to hospitalist service: 06/16: No significant changes to medical plan. Renal Acute renal failure secondary to rhabdomyolysis from statin. No obstruction. Significant proteinuria. Serology negative. Mild CKD at baseline prior to acute injury. Dialysis started 05/27 -Nephrology consulted -Continue dialysis -s/p dialysis 06/16 -monitor urine output -hold Lisinopril, other nephrotoxins Respiratory Acute hypoxic and hypercarbic respiratory failure: Status post intubation and extubation. Echo with EF 50%; suspected failure from ARF - Supplemental oxygen as needed. - Breathing treatments as needed. -Dialysis as below Cardiovascular Elevated troponin Atrial fibrillation Impression: Cardiology consulted. Echo- EF 50%. [id number] 1. Determined anticoagulation risk high for multiple risks -Continue Plavix -Continue to monitor labs/platelet count Statin induced rhabdomyolysis -Ongoing hemodialysis as above. -Continue to trend CK levels. Alcohol dependence: - Off [facility] protocol. - No signs of withdrawal currently Acute liver failure Impression: Downtrending LFT's. Transaminases >1000 05/26 ----> less than 100 . - Follow LFTs. -s/p lactulose (Ammonia <10 06/04) Acute diverticulitis/rectal pain Impression: 05/26 A/P CT with sigmoid diverticulitis. no reported recent symptoms. Cipro/Flagyl stopped -Continue to monitor Rash: Probable drug reaction: Cipro and Flagyl previously discontinued. Benadryl as needed. Continue Zyrtec and Pepcid. Tobacco dependence -Nicotine patch given DVT PPX Heparin 5K U q8hrs Code Status: Full code Discharge Planning: Pending renal improvement/Nephrology recommendations Assessment and Plan - Assessment (1) RADHA (acute kidney injury) Code(s): N17.9 - Acute kidney failure, unspecified Status: Acute (2) Acute renal failure Code(s): N17.9 - Acute kidney failure, unspecified Status: Acute (3) Transaminitis Code(s): R74.0 - Nonspecific elevation of levels of transaminase and lactic acid dehydrogenase [LDH] Status: Acute (4) Alcohol abuse Code(s): F10.10 - Alcohol abuse, uncomplicated Status: Acute (5) Rhabdomyolysis due to statin therapy Code(s): M62.82 - Rhabdomyolysis Status: Acute (6) NSTEMI (non-ST elevated myocardial infarction) Code(s): I21.4 - Non-ST elevation (NSTEMI) myocardial infarction Status: Acute - Plan 53-year-old male with acute hypoxic and hypercarbic respiratory failure and acute severe metabolic encephalopathy with associated multiorgan failure including renal failure and liver failure. Patient initially required intubation /ICU care; he has since stabilized and transferred to hospitalist service: 06/18: No changes in condition. Continue current medical plan. Nephrology has clarified that patient is currently diagnosed with acute kidney injury due to rhabdo and not ESRD. This diagnosis does not preclude transfer to a SNF; unfortunately patient does not have benefits to support this option. Renal Acute renal failure secondary to rhabdomyolysis from statin. No obstruction. Significant proteinuria. Serology negative. Mild CKD at baseline prior to acute injury. Dialysis started 05/27 -Nephrology consulted -Continue dialysis -monitor urine output -hold Lisinopril, other nephrotoxins Respiratory Acute hypoxic and hypercarbic respiratory failure: Status post intubation and extubation. Echo with EF 50%; suspected failure from ARF - Supplemental oxygen as needed. - Breathing treatments as needed. -Dialysis as below Cardiovascular Elevated troponin Atrial fibrillation Impression: Cardiology consulted. Echo- EF 50%. [id number] 1. Determined anticoagulation risk high for multiple risks -Continue Plavix -Continue to monitor labs/platelet count Statin induced rhabdomyolysis -Ongoing hemodialysis as above. -Continue to trend CK levels. Alcohol dependence: - Off [facility] protocol. - No signs of withdrawal currently Acute liver failure Impression: Downtrending LFT's. Transaminases >1000 05/26 ----> less than 100 . - Follow LFTs. -s/p lactulose (Ammonia <10 06/04) Acute diverticulitis/rectal pain Impression: 05/26 A/P CT with sigmoid diverticulitis. no reported recent symptoms. Cipro/Flagyl stopped -Continue to monitor Rash: Probable drug reaction: Cipro and Flagyl previously discontinued. Benadryl as needed. Continue Zyrtec and Pepcid. Tobacco dependence -Nicotine patch given DVT PPX Heparin 5K U q8hrs Code Status: Full code Discharge Planning: Pending renal improvement/Nephrology recommendations (2) Acute renal failure Qualifiers: Acute renal failure type: unspecified Qualified Code(s): N17.9 - Acute kidney failure, unspecified
--- NOTE | 2018-06-18 15:16 | P.PNNP ---
Subjective Interval history: Dialyzed today. Urine output is improving. Physical Exam Vital signs: Vital Signs 06/17/18 16:00 06/17/18 20:00 06/18/18 00:00 Temperature 98 F 97.7 F 98.0 F Pulse Rate 88 83 84 Respiratory Rate 19 20 20 Blood Pressure 127/68 110/71 135/65 Pulse Oximetry 98 99 98 06/18/18 04:00 06/18/18 08:00 06/18/18 12:00 Temperature 97.4 F L 97.8 F 98 F Pulse Rate 85 119 H Respiratory Rate 20 18 18 Blood Pressure 136/72 147/83 H 127/85 Pulse Oximetry 98 99 97 Intake & Output 06/17/18 06/18/18 06/18/18 18:59 06:59 18:59 Intake Total 1200 / 1200 1200 / 1200 Output Total 4000 / 4000 Balance 1200 / 1200 1200 / 1200 -4000 / -4000 Intake: Oral 1200 / 1200 1200 / 1200 Output: Hemodialysis Amount 4000 / 4000 Other: Post Void Residual 400 # Voids 2 Date of Last Bowel Movement 06/16/18 06/17/18 06/18/18 # Bowel Movements 2 Narrative: GENERAL: Well-nourished, well-developed adult male in no obvious distress. SKIN: Warm and dry. PermCath in right IJ HEAD: Atraumatic. Normocephalic. CARDIOVASCULAR: Regular rate and rhythm. RESPIRATORY: No accessory muscle use. Clear to auscultation. Breath sounds equal bilaterally. GASTROINTESTINAL: Abdomen soft, non-tender, non-distended. Positive bowel sounds. MUSCULOSKELETAL: 2+ edema bilateral ankles. NEUROLOGICAL: Awake and alert. No obvious cranial nerve deficits. Motor grossly within normal limits. Normal speech. - Urinary Catheter Management Indwelling Urethral Catheter Cath placed during this visit: yes, but has since been removed by the nurse Reason for continuing: Decision to DC catheter Insertion date: 05/28/18 Insertion time: 13:30 Removal date: 05/29/18 Removal time: 16:15 Assessment and Plan - Assessment (1) RADHA (acute kidney injury) Code(s): N17.9 - Acute kidney failure, unspecified Status: Acute Plan: He has underlying CKD, baseline creatinine was 1.5-1.6 earlier this year. RADHA is due to rhabdomyolysis. Dialysis initiated on 05/27. Continue to monitor urine output. Serologies negative. Avoid nephrotoxic agents. Urine output may be improving. Continue diuresis with Bumex. Fluid restriction has been advised. Watch for renal recovery. Dialysis prn. (2) ETOH abuse Code(s): F10.10 - Alcohol abuse, uncomplicated Status: Acute Plan: Cessation has been advised.
[2018-06-19] MEDS: Oral Hygiene Kit OROPHARYNG SCH ×4 (01:45→15:03)
[2018-06-19] MEDS: oxyCODONE/Acetaminophen 10/325 Tablet PO PRN ×5 (03:56→19:59)
[2018-06-19] MEDS: Heparin - SQ 10,000 UNITS/ML Vial SQ SCH ×3 (06:04→22:32)
[2018-06-19] MEDS: Morphine Inj 4 MG/ML Vial IV.PUSH PRN ×5 (06:04→21:42)
[2018-06-19 06:34] LABS: Albumin 3.5 g/dL (3.4-5.0); Calcium 9.1 mg/dL (8.5-10.1); Carbon Dioxide 30.4 meq/L (21.0-32.0); Phosphorus 4.6 mg/dL (2.5-4.9); Potassium 4.2 meq/L (3.5-5.1)
--- NOTE | 2018-06-19 07:26 | P.PNCA ---
Subjective Interval history: denies chest pain, alert in nad, states u/o @ 300 cc since dialysis 06/18/18 Medications and Allergies Active Medications: Active Medications Acetaminophen (Tylenol) 650 mg PO Q4H PRN PRN Reason: Temp > 100.4 Acetaminophen (Tylenol) 650 mg PO UNSCH PRN PRN Reason: SEE LABEL COMMENTS Acetaminophen (Tylenol) 500 mg PO Q6H PRN PRN Reason: PAIN 1-6 Al Hydroxide/Mg Hydroxide (Milk Of Michael Zambrano) 30 ml PO Q12H PRN PRN Reason: Mild Constipation Albuterol (Duoneb Neb (Prn)) 1 ampul NEB Q2HR NEB PRN PRN Reason: WHEEZING Bisacodyl (Dulcolax Supp) 10 mg RECTAL DAILY PRN PRN Reason: if no BM in last 24h Last Admin: 06/10/18 05:49 Dose: 10 mg Bumetanide (Bumex Inj) 2 mg IV.PUSH BID@0900,1800 [facility] Last Admin: 06/18/18 18:08 Dose: 2 mg Calcium Acetate (Phoslo) 667 mg PO TID [facility] Last Admin: 06/18/18 18:09 Dose: 667 mg Cetirizine HCl (Zyrtec) 10 mg PO BID [facility] Last Admin: 06/18/18 20:14 Dose: 10 mg Chlorhexidine Gluconate (Peridex 0.12% Oral Kit) 15 ml OROPHARYNG BID@0800, 2000 [facility] Last Admin: 06/18/18 22:23 Dose: Not Given Clopidogrel Bisulfate (Plavix) 75 mg PO DAILY [facility] Last Admin: 06/18/18 08:08 Dose: 75 mg Dextrose (D50w Syringe) 50 ml IV.PUSH UNSCH PRN PRN Reason: PER HYPOGLYCEMIA PROTOCOL Diphenhydramine HCl (Benadryl) 25 mg PO Q4H PRN PRN Reason: ITCHING Last Admin: 06/18/18 09:00 Dose: 25 mg Diphenhydramine HCl (Benadryl) 50 mg PO Q6H PRN PRN Reason: ITCHING Last Admin: 06/19/18 00:01 Dose: 50 mg Famotidine (Pepcid) 10 mg PO BID [facility] Last Admin: 06/18/18 22:22 Dose: Not Given Gelatin (Gelfoam 12 Mm/7 Mm Topical) 1 foam TOPICAL PRN PRN PRN Reason: help stop bleeding from site Gentamicin Sulfate (Gentamicin Inj) 20 mg OTHER WITH DIALYSIS PRN PRN Reason: Dwell Gentamycin Lock Last Admin: 06/11/18 10:43 Dose: 20 mg Glucagon (Glucagon Inj) 1 mg IM ONCE PRN PRN Reason: blood sugar < 60, no iv access Haloperidol Lactate (Haldol Inj) 5 mg IV.PUSH Q15M PRN PRN Reason: for severe agitation Heparin Sodium (Porcine) (Heparin Inj) 5,000 units SQ Q8HR [facility] Last Admin: 06/19/18 06:04 Dose: 5,000 units Heparin Sodium (Porcine) (Heparin Inj) 8,000 units OTHER WITH DIALYSIS PRN PRN Reason: for machine prime Last Admin: 06/04/18 12:39 Dose: 3,500 units Heparin Sodium (Porcine) (Heparin Inj) 1,000 units OTHER WITH DIALYSIS PRN PRN Reason: Dwell Heparin to Fill Catheter Last Admin: 06/11/18 10:42 Dose: 1,000 units Hydrocortisone Acetate (Hemorrhoidal Hc Supp) 25 mg RECTAL TID [facility] Last Admin: 06/18/18 18:11 Dose: 25 mg Hydrocortisone Acetate (Hydrocortisone 1% Cream) 1 applicatio TOPICAL TID PRN PRN Reason: RASH Last Admin: 06/16/18 16:09 Dose: 1 applicatio Albumin Human (Flexbumin 25% Inj) 100 mls @ 60 mls/hr IV.SIG WITH DIALYSIS PRN PRN Reason: hypotension / volume replace Last Infusion: 06/16/18 09:02 Dose: Infused Sodium Chloride (Ns Inj) 1,000 mls @ 0 mls/hr OTHER .Q0M PRN PRN Reason: for prime and rinse back Sodium Chloride (Ns Inj) 1,000 mls @ 200 mls/hr OTHER .Q5H PRN PRN Reason: for dialyzer flush PRN Sodium Chloride (Ns Inj) 1,000 mls @ 0 mls/hr IV.CONT .Q0M PRN PRN Reason: hypotension / volume replace Vasopressin 40 unit/ Dextrose 100 mls @ 6 mls/hr IV.CONT CONT [facility]I; Protocol Last Infusion: 06/01/18 19:33 Dose: Infused Insulin Human Regular (Novolin R Inj) 1 units SQ Q6HR [facility]I; Protocol Last Admin: 06/19/18 06:10 Dose: Not Given Lactulose (Lactulose Liq) 30 ml PO BID [facility] Last Admin: 06/18/18 20:14 Dose: 30 ml Morphine Sulfate (Morphine Inj) 4 mg IV.PUSH Q4H PRN PRN Reason: BREAKTHROUGH PAIN Last Admin: 06/19/18 06:04 Dose: 4 mg Naloxone HCl (Narcan Inj) 0.4 mg IV.PUSH UNSCH PRN PRN Reason: SEE LABEL COMMENTS Nicotine (Habitrol 14 Mg Patch.24 Hr) 1 patch T-DERMAL DAILY [facility] Last Admin: 06/18/18 08:10 Dose: 1 patch Nitroglycerin (Nitrostat Sl) 0.4 mg SL Q5M PRN PRN Reason: CHEST PAIN Ondansetron HCl (Zofran Inj) 4 mg IV.PUSH Q6H PRN PRN Reason: NAUSEA OR VOMITING Last Admin: 05/30/18 20:46 Dose: 4 mg Ondansetron HCl (Zofran Inj) 4 mg IV.PUSH UNSCH PRN PRN Reason: NAUSEA OR VOMITING Oxycodone/Acetaminophen (Percocet 10/325 Mg) 1 tab PO Q4H PRN PRN Reason: PAIN SCALE 7 TO 10 SEVERE Last Admin: 06/19/18 03:56 Dose: 1 tab Pantoprazole Sodium (Protonix) 40 mg PO DAILY [facility] Last Admin: 06/18/18 08:10 Dose: 40 mg Patch Removal (Remove Old Patch) 1 each T-DERMAL DAILY [facility] Last Admin: 06/18/18 08:15 Dose: 1 each Polyethylene Glycol (Miralax) 17 gm PO BID [facility] Last Admin: 06/18/18 20:13 Dose: 17 gm Senna/Docusate Sodium (Najma-Colace) 1 tab PO BID [facility] Last Admin: 06/18/18 20:14 Dose: 1 tab Sennosides (Senokot) 17.2 mg PO Q12H PRN PRN Reason: Moderate Constipation Sodium Chloride (Ns Flush) 5 ml IV.FLUSH PRN PRN PRN Reason: flush each lumen during HD Sodium Chloride (Ns Flush) 2 ml IV.FLUSH UNSCH PRN PRN Reason: FLUSH AFTER USING IV ACCESS Terbutaline Sulfate (Brethine Inj) 1 mg SQ UNSCH PRN PRN Reason: For Extravasation Thiamine HCl (Vitamin B1) 100 mg PO DAILY [facility] Last Admin: 06/18/18 08:13 Dose: 100 mg Zolpidem Tartrate (Ambien) 5 mg PO HS PRN PRN Reason: INSOMNIA Last Admin: 06/01/18 01:51 Dose: 5 mg Allergies Allergy/AdvReac Type Severity Reaction Status Date / Time [id number] Reductase AdvReac Urinary Verified 06/05/18 16:04 Inhibitor Freq (Inc/Dec) Home Medications Medication Instructions Recorded Confirmed Type atorvastatin 80 mg PO DAILY 04/30/18 05/26/18 History lisinopril 10 mg PO DAILY 04/30/18 05/26/18 History Physical Exam Vital signs: Vital Signs 06/18/18 08:00 06/18/18 12:00 06/18/18 16:00 Temperature 97.8 F 98 F 98.7 F Pulse Rate 85 119 H 99 H Respiratory Rate 18 18 18 Blood Pressure 147/83 H 127/85 134/72 Pulse Oximetry 99 97 99 06/18/18 20:00 06/19/18 00:00 06/19/18 04:00 Temperature 98.2 F 98.3 F 97.9 F Pulse Rate 118 H 96 H 98 H Respiratory Rate 19 20 20 Blood Pressure 129/67 141/70 H 115/57 L Pulse Oximetry 100 97 98 Intake & Output 06/18/18 06/19/18 06/19/18 18:59 06:59 18:59 Intake Total 1100 / 1100 1200 / 1200 Output Total 4100 / 4100 2 / 2 Balance -3000 / -3000 1198 / 1198 Weight 95.2 kg Intake: Oral 1100 / 1100 1200 / 1200 Output: Urine 100 / 100 2 / 2 Hemodialysis Amount 4000 / 4000 Other: Date of Last Bowel Movement 06/18/18 06/18/18 - Urinary Catheter Management Indwelling Urethral Catheter Cath placed during this visit: yes, but has since been removed by the nurse Reason for continuing: Decision to DC catheter Insertion date: 05/28/18 Insertion time: 13:30 Removal date: 05/29/18 Removal time: 16:15 Results 06/16/18 03:48 06/19/18 05:26 Comprehensive Metabolic Panel 06/17/18 06/18/18 06/19/18 Range/Units 14:30 03:51 05:26 Sodium 140 136 138 (136-145) meq/L Potassium 3.7 4.0 4.2 (3.5-5.1) meq/L Chloride 99 96 L 96 L (98-107) meq/L Carbon Dioxide 30.2 30.6 30.4 (21.0-32.0) meq/L BUN 40 H 46 H 36 H (7-18) mg/dL Creatinine 6.45 H 6.92 H 6.27 H (0.60-1.30) mg/dL Calcium 8.9 9.1 9.1 (8.5-10.1) mg/dL Albumin 3.4 3.5 (3.4-5.0) g/dL Intake and Output 06/18/18 06/19/18 06/19/18 22:59 06:59 14:59 Intake Total 1100 / 1100 1200 / 1200 Output Total 100 / 100 2 / 2 Balance 1000 / 1000 1198 / 1198 Intake: Oral 1100 / 1100 1200 / 1200 Output: Urine 100 / 100 2 / 2 Other: Date of Last Bowel Movement 06/18/18 Weight 95.2 kg Assessment and Plan - Assessment (1) Thrombocytopenia Code(s): D69.6 - Thrombocytopenia, unspecified Status: Acute (2) Anemia Code(s): D64.9 - Anemia, unspecified Status: Acute (3) Leukemia Code(s): C95.90 - Leukemia, unspecified not having achieved remission Status: Acute (4) NSTEMI (non-ST elevated myocardial infarction) Code(s): I21.4 - Non-ST elevation (NSTEMI) myocardial infarction Status: Acute (5) Tobacco abuse Code(s): Z72.0 - Tobacco use Status: Acute (6) RADHA (acute kidney injury) Code(s): N17.9 - Acute kidney failure, unspecified Status: Acute (7) ETOH abuse Code(s): F10.10 - Alcohol abuse, uncomplicated Status: Acute (8) Rectal pain Code(s): K62.89 - Other specified diseases of anus and rectum Status: Deleted (9) Metabolic acidosis Code(s): E87.2 - Acidosis Status: Acute (10) Diverticulitis Code(s): K57.92 - Diverticulitis of intestine, part unspecified, without perforation or abscess without bleeding Status: Acute (11) Acute renal failure Code(s): N17.9 - Acute kidney failure, unspecified Status: Acute (12) Transaminitis Code(s): R74.0 - Nonspecific elevation of levels of transaminase and lactic acid dehydrogenase [LDH] Status: Acute (13) Alcohol abuse Code(s): F10.10 - Alcohol abuse, uncomplicated Status: Acute - Plan 1.) NSTEMI - suspect trop elevation due to arf which appears to be due to rhabdomyolysis, he is assymptomatic 2.) Afib - 2d echo ef=50%, [id number] score=1, male gender, ac held due to unstable platelet count, hgb and liver function, continue to f/u trends in lfts , hgb, plt ct; rash started @ time aspirin 81 mg qd started 06/01/18, will dc aspirin and start plavix 75 mg qd, 06/05/18, no improvement in rash, i explained to patient that if due to aspirin may take several days for plasma levels of aspirin to decrease and to see improvement if rash is due to aspirin, ; not good candidate for ac with noac or coumadin due to alcohol abuse, liver failure , fall risk and unstable hgb and platelet count 3.) Respiratory failure - ef=50% on echo, assymptomatic 05/27/18, possibly due to volume overload from arf, improved with dialysis 4.) Rash - improved (11) Acute renal failure Qualifiers: Acute renal failure type: unspecified Qualified Code(s): N17.9 - Acute kidney failure, unspecified
[2018-06-19] MEDS: Chlorhexidine 0.12% Oral Kit 15 ML UDC OROPHARYNG SCH ×2 (07:49→22:35)
[2018-06-19] MEDS: Calcium Acetate 667 MG Capsule PO SCH ×3 (08:00→17:07)
[2018-06-19] MEDS: Polyethylene Glycol 3350 17 GM Packet PO SCH ×2 (08:00→20:00)
[2018-06-19] MEDS: Senna/Docusate Sodium 8.6/50 MG Tablet PO SCH ×2 (08:00→19:59)
[2018-06-19] MEDS: Hydrocortisone Acetate 25 MG Supp RECTAL SCH ×3 (08:01→17:07)
[2018-06-19] MEDS: Famotidine 20 MG Tablet PO SCH ×2 (08:01→22:34)
--- NOTE | 2018-06-19 11:38 | P.PN ---
Subjective Interval history: Patient seen lying in bed. Resting comfortably with no new complaints. Nursing inquires about need for sliding scale insulin as they have never had to give it. Physical Exam Vital signs: Vital Signs 06/18/18 12:00 06/18/18 16:00 06/18/18 20:00 Temperature 98 F 98.7 F 98.2 F Pulse Rate 119 H 99 H 118 H Respiratory Rate 18 18 19 Blood Pressure 127/85 134/72 129/67 Pulse Oximetry 97 99 100 06/19/18 00:00 06/19/18 04:00 06/19/18 07:39 Temperature 98.3 F 97.9 F 98 F Pulse Rate 96 H 98 H 105 H Respiratory Rate 20 20 20 Blood Pressure 141/70 H 115/57 L 126/75 Pulse Oximetry 97 98 97 06/19/18 08:05 06/19/18 10:07 Temperature Pulse Rate Respiratory Rate 16 16 Blood Pressure Pulse Oximetry Intake & Output 06/18/18 06/19/18 06/19/18 18:59 06:59 18:59 Intake Total 1100 / 1100 1200 / 1200 Output Total 4100 / 4100 2 / 2 300 / 300 Balance -3000 / -3000 1198 / 1198 -300 / -300 Weight 95.2 kg Intake: Oral 1100 / 1100 1200 / 1200 Output: Urine 100 / 100 2 / 2 300 / 300 Hemodialysis Amount 4000 / 4000 Other: Date of Last Bowel Movement 06/18/18 06/18/18 Narrative: GENERAL: Well-nourished, well-developed adult male in no obvious distress. SKIN: Warm and dry. PermCath in right IJ HEAD: Atraumatic. Normocephalic. CARDIOVASCULAR: Regular rate and rhythm. RESPIRATORY: No accessory muscle use. Clear to auscultation. Breath sounds equal bilaterally. GASTROINTESTINAL: Abdomen soft, non-tender, non-distended. Positive bowel sounds. MUSCULOSKELETAL: 2+ edema bilateral ankles. NEUROLOGICAL: Awake and alert. No obvious cranial nerve deficits. Motor grossly within normal limits. Normal speech. - Urinary Catheter Management Indwelling Urethral Catheter Cath placed during this visit: yes, but has since been removed by the nurse Reason for continuing: Decision to DC catheter Insertion date: 05/28/18 Insertion time: 13:30 Removal date: 05/29/18 Removal time: 16:15 Results - Labs CBC & Chem 7: 06/16/18 03:48 06/19/18 05:26 Laboratory Results - last 24 hr 06/18/18 06/19/18 06/19/18 18:06 00:03 05:26 Sodium 138 Potassium 4.2 Chloride 96 L Carbon Dioxide 30.4 Anion Gap 12 BUN 36 H Creatinine 6.27 H Estimated GFR 9 L POC Glucose 129 H 137 H Random Glucose 113 H Calcium 9.1 Phosphorus 4.6 Albumin 3.5 06/19/18 11:13 Sodium Potassium Chloride Carbon Dioxide Anion Gap BUN Creatinine Estimated GFR POC Glucose 116 H Random Glucose Calcium Phosphorus Albumin Microbiology 06/16/18 07:05 Clean Catch Urine Urine Culture - Final No growth in 48 hours - Procedures 53-year-old male with acute hypoxic and hypercarbic respiratory failure and acute severe metabolic encephalopathy with associated multiorgan failure including renal failure and liver failure. Patient initially required intubation /ICU care; he has since stabilized and transferred to hospitalist service: 06/16: No significant changes to medical plan. Renal Acute renal failure secondary to rhabdomyolysis from statin. No obstruction. Significant proteinuria. Serology negative. Mild CKD at baseline prior to acute injury. Dialysis started 05/27 -Nephrology consulted -Continue dialysis -s/p dialysis 06/16 -monitor urine output -hold Lisinopril, other nephrotoxins Respiratory Acute hypoxic and hypercarbic respiratory failure: Status post intubation and extubation. Echo with EF 50%; suspected failure from ARF - Supplemental oxygen as needed. - Breathing treatments as needed. -Dialysis as below Cardiovascular Elevated troponin Atrial fibrillation Impression: Cardiology consulted. Echo- EF 50%. [id number] 1. Determined anticoagulation risk high for multiple risks -Continue Plavix -Continue to monitor labs/platelet count Statin induced rhabdomyolysis -Ongoing hemodialysis as above. -Continue to trend CK levels. Alcohol dependence: - Off CIWA protocol. - No signs of withdrawal currently Acute liver failure Impression: Downtrending LFT's. Transaminases >1000 05/26 ----> less than 100 . - Follow LFTs. -s/p lactulose (Ammonia <10 06/04) Acute diverticulitis/rectal pain Impression: 05/26 A/P CT with sigmoid diverticulitis. no reported recent symptoms. Cipro/Flagyl stopped -Continue to monitor Rash: Probable drug reaction: Cipro and Flagyl previously discontinued. Benadryl as needed. Continue Zyrtec and Pepcid. Tobacco dependence -Nicotine patch given DVT PPX Heparin 5K U q8hrs Code Status: Full code Discharge Planning: Pending renal improvement/Nephrology recommendations Assessment and Plan - Assessment (1) RADHA (acute kidney injury) Code(s): N17.9 - Acute kidney failure, unspecified Status: Acute (2) Acute renal failure Code(s): N17.9 - Acute kidney failure, unspecified Status: Acute (3) Transaminitis Code(s): R74.0 - Nonspecific elevation of levels of transaminase and lactic acid dehydrogenase [LDH] Status: Acute (4) Alcohol abuse Code(s): F10.10 - Alcohol abuse, uncomplicated Status: Acute (5) Rhabdomyolysis due to statin therapy Code(s): M62.82 - Rhabdomyolysis Status: Acute (6) NSTEMI (non-ST elevated myocardial infarction) Code(s): I21.4 - Non-ST elevation (NSTEMI) myocardial infarction Status: Acute - Plan 53-year-old male with acute hypoxic and hypercarbic respiratory failure and acute severe metabolic encephalopathy with associated multiorgan failure including renal failure and liver failure. Patient initially required intubation /ICU care; he has since stabilized and transferred to hospitalist service: 06/19: No changes in condition. Stop sliding scale insulin and Accu-Cheks as patient is not a diabetic. continue rest current medical plan. Nephrology has clarified that patient is currently diagnosed with acute kidney injury due to rhabdo and not ESRD. This diagnosis does not preclude transfer to a SNF; unfortunately patient does not have benefits to support this option. Renal Acute renal failure secondary to rhabdomyolysis from statin. No obstruction. Significant proteinuria. Serology negative. Mild CKD at baseline prior to acute injury. Dialysis started 05/27 -Nephrology consulted -Continue dialysis -monitor urine output -hold Lisinopril, other nephrotoxins Respiratory Acute hypoxic and hypercarbic respiratory failure: Status post intubation and extubation. Echo with EF 50%; suspected failure from ARF - Supplemental oxygen as needed. - Breathing treatments as needed. -Dialysis as below Cardiovascular Elevated troponin Atrial fibrillation Impression: Cardiology consulted. Echo- EF 50%. [id number] 1. Determined anticoagulation risk high for multiple risks -Continue Plavix -Continue to monitor labs/platelet count Statin induced rhabdomyolysis -Ongoing hemodialysis as above. -Continue to trend CK levels. Alcohol dependence: - Off CIWA protocol. - No signs of withdrawal currently Acute liver failure Impression: Downtrending LFT's. Transaminases >1000 05/26 ----> less than 100 . - Follow LFTs. -s/p lactulose (Ammonia <10 06/04) Acute diverticulitis/rectal pain Impression: 05/26 A/P CT with sigmoid diverticulitis. no reported recent symptoms. Cipro/Flagyl stopped -Continue to monitor Rash: Probable drug reaction: Cipro and Flagyl previously discontinued. Benadryl as needed. Continue Zyrtec and Pepcid. Tobacco dependence -Nicotine patch given DVT PPX Heparin 5K U q8hrs Code Status: Full code Discharge Planning: Pending renal improvement/Nephrology recommendations (2) Acute renal failure Qualifiers: Acute renal failure type: unspecified Qualified Code(s): N17.9 - Acute kidney failure, unspecified
[2018-06-20] MEDS: oxyCODONE/Acetaminophen 10/325 Tablet PO PRN ×3 (00:04→08:29)
[2018-06-20] MEDS: Oral Hygiene Kit OROPHARYNG SCH ×4 (01:40→16:16)
[2018-06-20] MEDS: Morphine Inj 4 MG/ML Vial IV.PUSH PRN ×3 (01:45→09:51)
[2018-06-20] MEDS: Heparin - SQ 10,000 UNITS/ML Vial SQ SCH ×3 (05:56→21:02)
[2018-06-20] MEDS: Chlorhexidine 0.12% Oral Kit 15 ML UDC OROPHARYNG SCH ×2 (08:28→19:45)
[2018-06-20] MEDS: Hydrocortisone Acetate 25 MG Supp RECTAL SCH ×3 (08:29→17:07)
[2018-06-20] MEDS: Calcium Acetate 667 MG Capsule PO SCH ×3 (08:29→17:06)
[2018-06-20] MEDS: Famotidine 20 MG Tablet PO SCH ×2 (08:30→21:05)
[2018-06-20] MEDS: Polyethylene Glycol 3350 17 GM Packet PO SCH ×2 (08:30→20:35)
[2018-06-20] MEDS: Senna/Docusate Sodium 8.6/50 MG Tablet PO SCH ×2 (08:30→20:35)
[2018-06-20] MEDS ORDERED: Naloxone Inj 0.4 MG/ML Vial IV.PUSH PRN (11:43)
--- NOTE | 2018-06-20 11:53 | P.PN ---
Subjective Interval history: Nursing reports that he has been requesting morphine consistently every 4 hours for breakthrough hemorrhoid pain. This is in addition to taking p.o. pain medication every time it is available. RN expressed concern about this. Patient is seen lying in bed. He tells me that he is needing the morphine for hemorrhoid pain. This is in addition to hemorrhoid suppositories and ointments. Review of [facility] shows that he has not had any previously prescribed medications for either acute or chronic pain. He is telling me that the hemorrhoids are new and are the major source of pain for him, however, there is some concern that he is developing drug-seeking behavior. Physical Exam Vital signs: Vital Signs 06/19/18 12:00 06/19/18 12:13 06/19/18 13:38 Temperature 98.5 F Pulse Rate 95 H Respiratory Rate 20 16 16 Blood Pressure 114/66 Pulse Oximetry 96 06/19/18 16:00 06/19/18 16:07 06/19/18 17:42 Temperature 98.3 F Pulse Rate 110 H Respiratory Rate 20 16 16 Blood Pressure 113/68 Pulse Oximetry 97 06/19/18 20:00 06/20/18 00:00 06/20/18 04:00 Temperature 97.4 F L 98.4 F 97.8 F Pulse Rate 90 95 H 78 Respiratory Rate 18 20 18 Blood Pressure 132/66 130/69 113/59 L Pulse Oximetry 98 99 96 06/20/18 07:50 06/20/18 08:00 06/20/18 09:08 Temperature 97.5 F L Pulse Rate 98 H Respiratory Rate 16 20 16 Blood Pressure 137/65 Pulse Oximetry 100 06/20/18 09:52 06/20/18 11:35 Temperature 97.9 F Pulse Rate 116 H Respiratory Rate 16 18 Blood Pressure 119/66 Pulse Oximetry 95 Intake & Output 06/19/18 06/20/18 06/20/18 18:59 06:59 18:59 Intake Total 700 / 700 480 / 480 240 / 240 Output Total 1000 / 1000 Balance -300 / -300 480 / 480 240 / 240 Weight 92.5 kg Intake: Oral 700 / 700 480 / 480 240 / 240 Output: Urine 1000 / 1000 Other: # Voids 5 Date of Last Bowel Movement 06/19/18 Narrative: GENERAL: Well-nourished, well-developed adult male in no obvious distress. SKIN: Warm and dry. PermCath in right IJ HEAD: Atraumatic. Normocephalic. CARDIOVASCULAR: Regular rate and rhythm. RESPIRATORY: No accessory muscle use. Clear to auscultation. Breath sounds equal bilaterally. GASTROINTESTINAL: Abdomen soft, non-tender, non-distended. Positive bowel sounds. MUSCULOSKELETAL: 2+ edema bilateral ankles. NEUROLOGICAL: Awake and alert. No obvious cranial nerve deficits. Motor grossly within normal limits. Normal speech. - Urinary Catheter Management Indwelling Urethral Catheter Cath placed during this visit: yes, but has since been removed by the nurse Reason for continuing: Decision to DC catheter Insertion date: 05/28/18 Insertion time: 13:30 Removal date: 05/29/18 Removal time: 16:15 Results - Labs CBC & Chem 7: 06/16/18 03:48 06/19/18 05:26 - Procedures 53-year-old male with acute hypoxic and hypercarbic respiratory failure and acute severe metabolic encephalopathy with associated multiorgan failure including renal failure and liver failure. Patient initially required intubation /ICU care; he has since stabilized and transferred to hospitalist service: 06/16: No significant changes to medical plan. Renal Acute renal failure secondary to rhabdomyolysis from statin. No obstruction. Significant proteinuria. Serology negative. Mild CKD at baseline prior to acute injury. Dialysis started 05/27 -Nephrology consulted -Continue dialysis -s/p dialysis 06/16 -monitor urine output -hold Lisinopril, other nephrotoxins Respiratory Acute hypoxic and hypercarbic respiratory failure: Status post intubation and extubation. Echo with EF 50%; suspected failure from ARF - Supplemental oxygen as needed. - Breathing treatments as needed. -Dialysis as below Cardiovascular Elevated troponin Atrial fibrillation Impression: Cardiology consulted. Echo- EF 50%. [id number] 1. Determined anticoagulation risk high for multiple risks -Continue Plavix -Continue to monitor labs/platelet count Statin induced rhabdomyolysis -Ongoing hemodialysis as above. -Continue to trend CK levels. Alcohol dependence: - Off CIWA protocol. - No signs of withdrawal currently Acute liver failure Impression: Downtrending LFT's. Transaminases >1000 05/26 ----> less than 100 . - Follow LFTs. -s/p lactulose (Ammonia <10 06/04) Acute diverticulitis/rectal pain Impression: 05/26 A/P CT with sigmoid diverticulitis. no reported recent symptoms. Cipro/Flagyl stopped -Continue to monitor Rash: Probable drug reaction: Cipro and Flagyl previously discontinued. Benadryl as needed. Continue Zyrtec and Pepcid. Tobacco dependence -Nicotine patch given DVT PPX Heparin 5K U q8hrs Code Status: Full code Discharge Planning: Pending renal improvement/Nephrology recommendations Assessment and Plan - Assessment (1) RADHA (acute kidney injury) Code(s): N17.9 - Acute kidney failure, unspecified Status: Acute (2) Acute renal failure Code(s): N17.9 - Acute kidney failure, unspecified Status: Acute (3) Transaminitis Code(s): R74.0 - Nonspecific elevation of levels of transaminase and lactic acid dehydrogenase [LDH] Status: Acute (4) Alcohol abuse Code(s): F10.10 - Alcohol abuse, uncomplicated Status: Acute (5) Rhabdomyolysis due to statin therapy Code(s): M62.82 - Rhabdomyolysis Status: Acute (6) NSTEMI (non-ST elevated myocardial infarction) Code(s): I21.4 - Non-ST elevation (NSTEMI) myocardial infarction Status: Acute - Plan 53-year-old male with acute hypoxic and hypercarbic respiratory failure and acute severe metabolic encephalopathy with associated multiorgan failure including renal failure and liver failure. Patient initially required intubation /ICU care; he has since stabilized and transferred to hospitalist service: 06/20: Excessive narcotic use due to reported hemorrhoid pain -will consult colorectal to evaluate. Otherwise stable. Continue medical plan with reduction of narcotics. Nephrology has clarified that patient is currently diagnosed with acute kidney injury due to rhabdo and not ESRD. This diagnosis does not preclude transfer to a SNF; unfortunately patient does not have benefits to support this option. Renal Acute renal failure secondary to rhabdomyolysis from statin. No obstruction. Significant proteinuria. Serology negative. Mild CKD at baseline prior to acute injury. Dialysis started 05/27 -Nephrology consulted -Continue dialysis -monitor urine output -hold Lisinopril, other nephrotoxins Respiratory Acute hypoxic and hypercarbic respiratory failure: Status post intubation and extubation. Echo with EF 50%; suspected failure from ARF - Supplemental oxygen as needed. - Breathing treatments as needed. -Dialysis as below Cardiovascular Elevated troponin Atrial fibrillation Impression: Cardiology consulted. Echo- EF 50%. [id number] 1. Determined anticoagulation risk high for multiple risks -Continue Plavix -Continue to monitor labs/platelet count Statin induced rhabdomyolysis -Ongoing hemodialysis as above. -Continue to trend CK levels. Alcohol dependence: - Off CIWA protocol. - No signs of withdrawal currently Acute liver failure Impression: Downtrending LFT's. Transaminases >1000 05/26 ----> less than 100 . - Follow LFTs. -s/p lactulose (Ammonia <10 06/04) Acute diverticulitis/rectal pain Impression: 05/26 A/P CT with sigmoid diverticulitis. no reported recent symptoms. Cipro/Flagyl stopped -Continue to monitor Rash: Probable drug reaction: Cipro and Flagyl previously discontinued. Benadryl as needed. Continue Zyrtec and Pepcid. Tobacco dependence -Nicotine patch given DVT PPX Heparin 5K U q8hrs Code Status: Full code Discharge Planning: Pending renal improvement/Nephrology recommendations (2) Acute renal failure Qualifiers: Acute renal failure type: unspecified Qualified Code(s): N17.9 - Acute kidney failure, unspecified
[2018-06-20] MEDS: Morphine Sulfate Inj 2 MG/ML Vial IV.PUSH PRN ×3 (13:32→20:55)
--- NOTE | 2018-06-20 16:12 | P.PNCA ---
Subjective Interval history: denies chest pain, alert in nad, u/o improving Medications and Allergies Active Medications: Active Medications Acetaminophen (Tylenol) 650 mg PO Q4H PRN PRN Reason: Temp > 100.4 Acetaminophen (Tylenol) 650 mg PO UNSCH PRN PRN Reason: SEE LABEL COMMENTS Acetaminophen (Tylenol) 500 mg PO Q6H PRN PRN Reason: PAIN 1-6 Hydrocodone Bitart/Acetaminophen ([place] 7.5/325) 1 tab PO Q6H PRN PRN Reason: PAIN SCALE 6 TO 10 Last Admin: 06/20/18 12:25 Dose: 1 tab Al Hydroxide/Mg Hydroxide (Milk Of Michael Liq) 30 ml PO Q12H PRN PRN Reason: Mild Constipation Albuterol (Duoneb Neb (Prn)) 1 ampul NEB Q2HR NEB PRN PRN Reason: WHEEZING Bisacodyl (Dulcolax Supp) 10 mg RECTAL DAILY PRN PRN Reason: if no BM in last 24h Last Admin: 06/10/18 05:49 Dose: 10 mg Bumetanide (Bumex Inj) 2 mg IV.PUSH BID@0900,1800 [facility] Last Admin: 06/20/18 08:29 Dose: 2 mg Calcium Acetate (Phoslo) 667 mg PO TID [facility] Last Admin: 06/20/18 12:25 Dose: 667 mg Cetirizine HCl (Zyrtec) 10 mg PO BID [facility] Last Admin: 06/20/18 08:30 Dose: 10 mg Chlorhexidine Gluconate (Peridex 0.12% Oral Kit) 15 ml OROPHARYNG BID@0800, 2000 [facility] Last Admin: 06/20/18 08:28 Dose: Not Given Clopidogrel Bisulfate (Plavix) 75 mg PO DAILY [facility] Last Admin: 06/20/18 08:29 Dose: 75 mg Diphenhydramine HCl (Benadryl) 25 mg PO Q4H PRN PRN Reason: ITCHING Last Admin: 06/20/18 04:25 Dose: 25 mg Diphenhydramine HCl (Benadryl) 50 mg PO Q6H PRN PRN Reason: ITCHING Last Admin: 06/19/18 21:45 Dose: 50 mg Diphenhydramine HCl (Benadryl Inj) 50 mg IV.PUSH Q6H PRN PRN Reason: ITCHING Last Admin: 06/19/18 15:51 Dose: 50 mg Famotidine (Pepcid) 10 mg PO BID [facility] Last Admin: 06/20/18 08:30 Dose: Not Given Gelatin (Gelfoam 12 Mm/7 Mm Topical) 1 foam TOPICAL PRN PRN PRN Reason: help stop bleeding from site Gentamicin Sulfate (Gentamicin Inj) 20 mg OTHER WITH DIALYSIS PRN PRN Reason: Dwell Gentamycin Lock Last Admin: 06/11/18 10:43 Dose: 20 mg Heparin Sodium (Porcine) (Heparin Inj) 5,000 units SQ Q8HR [facility]I Last Admin: 06/20/18 13:06 Dose: 5,000 units Heparin Sodium (Porcine) (Heparin Inj) 8,000 units OTHER WITH DIALYSIS PRN PRN Reason: for machine prime Last Admin: 06/04/18 12:39 Dose: 3,500 units Heparin Sodium (Porcine) (Heparin Inj) 1,000 units OTHER WITH DIALYSIS PRN PRN Reason: Dwell Heparin to Fill Catheter Last Admin: 06/11/18 10:42 Dose: 1,000 units Hydrocortisone Acetate (Hemorrhoidal Hc Supp) 25 mg RECTAL TID [facility] Last Admin: 06/20/18 12:25 Dose: 25 mg Hydrocortisone Acetate (Hydrocortisone 1% Cream) 1 applicatio TOPICAL TID PRN PRN Reason: RASH Last Admin: 06/16/18 16:09 Dose: 1 applicatio Albumin Human (Flexbumin 25% Inj) 100 mls @ 60 mls/hr IV.SIG WITH DIALYSIS PRN PRN Reason: hypotension / volume replace Last Infusion: 06/16/18 09:02 Dose: Infused Sodium Chloride (Ns Inj) 1,000 mls @ 0 mls/hr OTHER .Q0M PRN PRN Reason: for prime and rinse back Sodium Chloride (Ns Inj) 1,000 mls @ 200 mls/hr OTHER .Q5H PRN PRN Reason: for dialyzer flush PRN Sodium Chloride (Ns Inj) 1,000 mls @ 0 mls/hr IV.CONT .Q0M PRN PRN Reason: hypotension / volume replace Vasopressin 40 unit/ Dextrose 100 mls @ 6 mls/hr IV.CONT CONT WEI; Protocol Last Infusion: 06/01/18 19:33 Dose: Infused Lactulose (Lactulose Liq) 30 ml PO BID [facility] Last Admin: 06/20/18 08:29 Dose: 30 ml Morphine Sulfate (Morphine Inj) 2 mg IV.PUSH Q4H PRN PRN Reason: BREAKTHROUGH PAIN Last Admin: 06/20/18 13:32 Dose: 2 mg Naloxone HCl (Narcan Inj) 0.4 mg IV.PUSH UNSCH PRN PRN Reason: SEE LABEL COMMENTS Naloxone HCl (Narcan Inj) 0.4 mg IV.PUSH UNSCH PRN PRN Reason: SEE LABEL COMMENTS Nicotine (Habitrol 14 Mg Patch.24 Hr) 1 patch T-DERMAL DAILY [facility] Last Admin: 06/20/18 08:30 Dose: 1 patch Nitroglycerin (Nitrostat Sl) 0.4 mg SL Q5M PRN PRN Reason: CHEST PAIN Ondansetron HCl (Zofran Inj) 4 mg IV.PUSH Q6H PRN PRN Reason: NAUSEA OR VOMITING Last Admin: 05/30/18 20:46 Dose: 4 mg Ondansetron HCl (Zofran Inj) 4 mg IV.PUSH UNSCH PRN PRN Reason: NAUSEA OR VOMITING Pantoprazole Sodium (Protonix) 40 mg PO DAILY [facility] Last Admin: 06/20/18 08:30 Dose: 40 mg Patch Removal (Remove Old Patch) 1 each T-DERMAL DAILY [facility] Last Admin: 06/20/18 08:30 Dose: 1 each Polyethylene Glycol (Miralax) 17 gm PO BID [facility] Last Admin: 06/20/18 08:30 Dose: 17 gm Senna/Docusate Sodium (Najma-Colace) 1 tab PO BID [facility] Last Admin: 06/20/18 08:30 Dose: 1 tab Sennosides (Senokot) 17.2 mg PO Q12H PRN PRN Reason: Moderate Constipation Sodium Chloride (Ns Flush) 5 ml IV.FLUSH PRN PRN PRN Reason: flush each lumen during HD Sodium Chloride (Ns Flush) 2 ml IV.FLUSH UNSCH PRN PRN Reason: FLUSH AFTER USING IV ACCESS Terbutaline Sulfate (Brethine Inj) 1 mg SQ UNSCH PRN PRN Reason: For Extravasation Thiamine HCl (Vitamin B1) 100 mg PO DAILY [facility] Last Admin: 06/20/18 08:29 Dose: 100 mg Zolpidem Tartrate (Ambien) 5 mg PO HS PRN PRN Reason: INSOMNIA Last Admin: 06/01/18 01:51 Dose: 5 mg Allergies Allergy/AdvReac Type Severity Reaction Status Date / Time [id number] Reductase AdvReac Urinary Verified 06/05/18 16:04 Inhibitor Freq (Inc/Dec) Home Medications Medication Instructions Recorded Confirmed Type atorvastatin 80 mg PO DAILY 04/30/18 05/26/18 History lisinopril 10 mg PO DAILY 04/30/18 05/26/18 History Physical Exam Vital signs: Vital Signs 06/19/18 17:42 06/19/18 20:00 06/20/18 00:00 Temperature 97.4 F L 98.4 F Pulse Rate 90 95 H Respiratory Rate 16 18 20 Blood Pressure 132/66 130/69 Pulse Oximetry 98 99 06/20/18 04:00 06/20/18 07:50 06/20/18 08:00 Temperature 97.8 F 97.5 F L Pulse Rate 78 98 H Respiratory Rate 18 16 20 Blood Pressure 113/59 L 137/65 Pulse Oximetry 96 100 06/20/18 09:08 06/20/18 09:52 06/20/18 11:35 Temperature 97.9 F Pulse Rate 116 H Respiratory Rate 16 16 18 Blood Pressure 119/66 Pulse Oximetry 95 06/20/18 13:06 06/20/18 13:32 Temperature Pulse Rate Respiratory Rate 16 16 Blood Pressure Pulse Oximetry Intake & Output 06/19/18 06/20/18 06/20/18 18:59 06:59 18:59 Intake Total 700 / 700 480 / 480 240 / 240 Output Total 1000 / 1000 Balance -300 / -300 480 / 480 240 / 240 Weight 92.5 kg Intake: Oral 700 / 700 480 / 480 240 / 240 Output: Urine 1000 / 1000 Other: # Voids 5 Date of Last Bowel Movement 06/19/18 - Urinary Catheter Management Indwelling Urethral Catheter Cath placed during this visit: yes, but has since been removed by the nurse Reason for continuing: Decision to DC catheter Insertion date: 05/28/18 Insertion time: 13:30 Removal date: 05/29/18 Removal time: 16:15 Results 06/16/18 03:48 06/19/18 05:26 Comprehensive Metabolic Panel 06/19/18 Range/Units 05:26 Sodium 138 (136-145) meq/L Potassium 4.2 (3.5-5.1) meq/L Chloride 96 L (98-107) meq/L Carbon Dioxide 30.4 (21.0-32.0) meq/L BUN 36 H (7-18) mg/dL Creatinine 6.27 H (0.60-1.30) mg/dL Calcium 9.1 (8.5-10.1) mg/dL Albumin 3.5 (3.4-5.0) g/dL Intake and Output 06/20/18 06/20/18 06/20/18 06:59 14:59 22:59 Intake Total 480 / 480 240 / 240 Balance 480 / 480 240 / 240 Intake: Oral 480 / 480 240 / 240 Other: # Voids 5 Date of Last Bowel Movement 06/19/18 Weight 92.5 kg Assessment and Plan - Assessment (1) Thrombocytopenia Code(s): D69.6 - Thrombocytopenia, unspecified Status: Acute (2) Anemia Code(s): D64.9 - Anemia, unspecified Status: Acute (3) Leukemia Code(s): C95.90 - Leukemia, unspecified not having achieved remission Status: Acute (4) NSTEMI (non-ST elevated myocardial infarction) Code(s): I21.4 - Non-ST elevation (NSTEMI) myocardial infarction Status: Acute (5) Tobacco abuse Code(s): Z72.0 - Tobacco use Status: Acute (6) RADHA (acute kidney injury) Code(s): N17.9 - Acute kidney failure, unspecified Status: Acute (7) ETOH abuse Code(s): F10.10 - Alcohol abuse, uncomplicated Status: Acute (8) Rectal pain Code(s): K62.89 - Other specified diseases of anus and rectum Status: Deleted (9) Metabolic acidosis Code(s): E87.2 - Acidosis Status: Acute (10) Diverticulitis Code(s): K57.92 - Diverticulitis of intestine, part unspecified, without perforation or abscess without bleeding Status: Acute (11) Acute renal failure Code(s): N17.9 - Acute kidney failure, unspecified Status: Acute (12) Transaminitis Code(s): R74.0 - Nonspecific elevation of levels of transaminase and lactic acid dehydrogenase [LDH] Status: Acute (13) Alcohol abuse Code(s): F10.10 - Alcohol abuse, uncomplicated Status: Acute - Plan 1.) NSTEMI - suspect trop elevation due to arf which appears to be due to rhabdomyolysis, he is assymptomatic 2.) Afib - 2d echo ef=50%, [id number] score=1, male gender, ac held due to unstable platelet count, hgb and liver function, continue to f/u trends in lfts , hgb, plt ct; rash started @ time aspirin 81 mg qd started 06/01/18, will dc aspirin and start plavix 75 mg qd, 06/05/18, no improvement in rash, i explained to patient that if due to aspirin may take several days for plasma levels of aspirin to decrease and to see improvement if rash is due to aspirin, ; not good candidate for ac with noac or coumadin due to alcohol abuse, liver failure , fall risk and unstable hgb and platelet count 3.) Respiratory failure - ef=50% on echo, assymptomatic 05/27/18, possibly due to volume overload from arf, improved with dialysis 4.) Rash - improved (11) Acute renal failure Qualifiers: Acute renal failure type: unspecified Qualified Code(s): N17.9 - Acute kidney failure, unspecified
[2018-06-21] MEDS: Oral Hygiene Kit OROPHARYNG SCH ×4 (00:36→19:23)
[2018-06-21] MEDS: Morphine Sulfate Inj 2 MG/ML Vial IV.PUSH PRN ×5 (01:04→20:21)
[2018-06-21] MEDS: Heparin - SQ 10,000 UNITS/ML Vial SQ SCH ×3 (06:07→22:59)
[2018-06-21] MEDS: Chlorhexidine 0.12% Oral Kit 15 ML UDC OROPHARYNG SCH ×2 (09:03→20:32)
[2018-06-21] MEDS: Senna/Docusate Sodium 8.6/50 MG Tablet PO SCH ×2 (09:05→20:24)
[2018-06-21] MEDS: Calcium Acetate 667 MG Capsule PO SCH ×3 (09:05→19:20)
[2018-06-21] MEDS: Famotidine 20 MG Tablet PO SCH ×2 (09:06→20:31)
[2018-06-21] MEDS: Polyethylene Glycol 3350 17 GM Packet PO SCH ×2 (09:06→20:24)
[2018-06-21] MEDS: Hydrocortisone Acetate 25 MG Supp RECTAL SCH ×3 (09:06→19:24)
--- NOTE | 2018-06-21 09:49 | P.PN ---
Subjective Interval history: Patient is seen sitting up in chair. He continues to complain about hemorrhoid pain. He tells me that this has been going on for many years and that he knows he has severe internal hemorrhoids. Ironically it is only recently that he has needed morphine to control his pain; prior to this admission he did not take any controlled pain medications and relied on OTC treatment. Discussed extensively with him that he cannot remain narcotic pain medication for this and that we will continue to aggressively wean his narcotic pain medication. He reports soft stools with no difficulty voiding his bowels. No blood in stool. No nausea or vomiting. Otherwise well; nursing reports no adverse events. Physical Exam Vital signs: Vital Signs 06/20/18 09:52 06/20/18 11:35 06/20/18 13:06 Temperature 97.9 F Pulse Rate 116 H Respiratory Rate 16 18 16 Blood Pressure 119/66 Pulse Oximetry 95 06/20/18 13:32 06/20/18 16:00 06/20/18 17:11 Temperature 98.3 F Pulse Rate 96 H Respiratory Rate 16 18 16 Blood Pressure 132/67 Pulse Oximetry 100 06/20/18 18:25 06/20/18 20:00 06/21/18 00:00 Temperature 97.6 F 98.0 F Pulse Rate 86 80 Respiratory Rate 16 17 18 Blood Pressure 135/72 138/70 Pulse Oximetry 100 97 06/21/18 04:00 06/21/18 08:00 Temperature 98.0 F 98.4 F Pulse Rate 79 91 H Respiratory Rate 18 20 Blood Pressure 128/66 129/69 Pulse Oximetry 95 96 Intake & Output 06/20/18 06/21/18 06/21/18 18:59 06:59 18:59 Intake Total 720 / 720 640 / 640 Output Total 1425 / 1425 250 / 250 Balance -705 / -705 640 / 640 -250 / -250 Weight 92.5 kg Intake: Oral 720 / 720 640 / 640 Output: Urine 1425 / 1425 250 / 250 Narrative: GENERAL: Well-nourished, well-developed adult male in no obvious distress. SKIN: Warm and dry. PermCath in right IJ HEAD: Atraumatic. Normocephalic. CARDIOVASCULAR: Regular rate and rhythm. RESPIRATORY: No accessory muscle use. Clear to auscultation. Breath sounds equal bilaterally. GASTROINTESTINAL: Abdomen soft, non-tender, non-distended. Positive bowel sounds. MUSCULOSKELETAL: 2+ edema bilateral ankles. NEUROLOGICAL: Awake and alert. No obvious cranial nerve deficits. Motor grossly within normal limits. Normal speech. - Urinary Catheter Management Indwelling Urethral Catheter Cath placed during this visit: yes, but has since been removed by the nurse Reason for continuing: Decision to DC catheter Insertion date: 05/28/18 Insertion time: 13:30 Removal date: 05/29/18 Removal time: 16:15 Results - Labs CBC & Chem 7: 06/16/18 03:48 06/19/18 05:26 - Procedures 53-year-old male with acute hypoxic and hypercarbic respiratory failure and acute severe metabolic encephalopathy with associated multiorgan failure including renal failure and liver failure. Patient initially required intubation /ICU care; he has since stabilized and transferred to hospitalist service: 06/16: No significant changes to medical plan. Renal Acute renal failure secondary to rhabdomyolysis from statin. No obstruction. Significant proteinuria. Serology negative. Mild CKD at baseline prior to acute injury. Dialysis started 05/27 -Nephrology consulted -Continue dialysis -s/p dialysis 06/16 -monitor urine output -hold Lisinopril, other nephrotoxins Respiratory Acute hypoxic and hypercarbic respiratory failure: Status post intubation and extubation. Echo with EF 50%; suspected failure from ARF - Supplemental oxygen as needed. - Breathing treatments as needed. -Dialysis as below Cardiovascular Elevated troponin Atrial fibrillation Impression: Cardiology consulted. Echo- EF 50%. [id number] 1. Determined anticoagulation risk high for multiple risks -Continue Plavix -Continue to monitor labs/platelet count Statin induced rhabdomyolysis -Ongoing hemodialysis as above. -Continue to trend CK levels. Alcohol dependence: - Off CIWA protocol. - No signs of withdrawal currently Acute liver failure Impression: Downtrending LFT's. Transaminases >1000 05/26 ----> less than 100 . - Follow LFTs. -s/p lactulose (Ammonia <10 06/04) Acute diverticulitis/rectal pain Impression: 05/26 A/P CT with sigmoid diverticulitis. no reported recent symptoms. Cipro/Flagyl stopped -Continue to monitor Rash: Probable drug reaction: Cipro and Flagyl previously discontinued. Benadryl as needed. Continue Zyrtec and Pepcid. Tobacco dependence -Nicotine patch given DVT PPX Heparin 5K U q8hrs Code Status: Full code Discharge Planning: Pending renal improvement/Nephrology recommendations Assessment and Plan - Assessment (1) RADHA (acute kidney injury) Code(s): N17.9 - Status: Acute (2) Acute renal failure Code(s): N17.9 - Status: Acute (3) Transaminitis Code(s): R74.0 - Status: Acute (4) Alcohol abuse Code(s): F10.10 - Status: Acute (5) Rhabdomyolysis due to statin therapy Code(s): M62.82 - Status: Acute (6) NSTEMI (non-ST elevated myocardial infarction) Code(s): I21.4 - Status: Acute - Plan 53-year-old male with acute hypoxic and hypercarbic respiratory failure and acute severe metabolic encephalopathy with associated multiorgan failure including renal failure and liver failure. Patient initially required intubation /ICU care; he has since stabilized and transferred to hospitalist service: 06/21: Excessive narcotic use due to reported hemorrhoid pain -problem was present prior to admission and should be followed up outpatient. Otherwise stable. Continue medical plan with reduction of narcotics. Nephrology has clarified that patient is currently diagnosed with acute kidney injury due to rhabdo and not ESRD. This diagnosis does not preclude transfer to a SNF for outpatient treatment; unfortunately patient does not have benefits to support this option. Renal Acute renal failure secondary to rhabdomyolysis from statin. No obstruction. Significant proteinuria. Serology negative. Mild CKD at baseline prior to acute injury. Dialysis started 05/27 -Nephrology consulted -Continue dialysis -monitor urine output -hold Lisinopril, other nephrotoxins Respiratory Acute hypoxic and hypercarbic respiratory failure: Status post intubation and extubation. Echo with EF 50%; suspected failure from ARF - Supplemental oxygen as needed. - Breathing treatments as needed. -Dialysis as below Cardiovascular Elevated troponin Atrial fibrillation Impression: Cardiology consulted. Echo- EF 50%. [id number] 1. Determined anticoagulation risk high for multiple risks -Continue Plavix -Continue to monitor labs/platelet count Statin induced rhabdomyolysis -Ongoing hemodialysis as above. -Continue to trend CK levels. Alcohol dependence: - Off CIWA protocol. - No signs of withdrawal currently Acute liver failure Impression: Downtrending LFT's. Transaminases >1000 05/26 ----> less than 100 . - Follow LFTs. -s/p lactulose (Ammonia <10 06/04) Acute diverticulitis/rectal pain Impression: 05/26 A/P CT with sigmoid diverticulitis. no reported recent symptoms. Cipro/Flagyl stopped -Continue to monitor Rash: Probable drug reaction: Cipro and Flagyl previously discontinued. Benadryl as needed. Continue Zyrtec and Pepcid. Tobacco dependence -Nicotine patch given DVT PPX Heparin 5K U q8hrs Code Status: Full code Discharge Planning: Pending renal improvement/Nephrology recommendations (2) Acute renal failure Qualifiers: Acute renal failure type: unspecified Qualified Code(s): N17.9 - Acute kidney failure, unspecified
[2018-06-21] MEDS: Heparin 10,000 UNITS/10 ML Vial (for IV use) OTHER PRN (09:56)
--- NOTE | 2018-06-21 10:01 | P.PNNP ---
Subjective Interval history: Patient was seen during dialysis. On 3K, BFR is 350 ml/min. UF goal is 3 liters. He is non oliguric, urine output has improved. Physical Exam Vital signs: Vital Signs 06/20/18 11:35 06/20/18 13:06 06/20/18 13:32 Temperature 97.9 F Pulse Rate 116 H Respiratory Rate 18 16 16 Blood Pressure 119/66 Pulse Oximetry 95 06/20/18 16:00 06/20/18 17:11 06/20/18 18:25 Temperature 98.3 F Pulse Rate 96 H Respiratory Rate 18 16 16 Blood Pressure 132/67 Pulse Oximetry 100 06/20/18 20:00 06/21/18 00:00 06/21/18 04:00 Temperature 97.6 F 98.0 F 98.0 F Pulse Rate 86 80 79 Respiratory Rate 17 18 18 Blood Pressure 135/72 138/70 128/66 Pulse Oximetry 100 97 95 06/21/18 08:00 Temperature 98.4 F Pulse Rate 91 H Respiratory Rate 20 Blood Pressure 129/69 Pulse Oximetry 96 Intake & Output 06/20/18 06/21/18 06/21/18 18:59 06:59 18:59 Intake Total 720 / 720 640 / 640 Output Total 1425 / 1425 250 / 250 Balance -705 / -705 640 / 640 -250 / -250 Weight 92.5 kg Intake: Oral 720 / 720 640 / 640 Output: Urine 1425 / 1425 250 / 250 Other: Date of Last Bowel Movement 06/19/18 Narrative: GENERAL: Well-nourished, well-developed adult male in no obvious distress. SKIN: Warm and dry. PermCath in right IJ HEAD: Atraumatic. Normocephalic. CARDIOVASCULAR: Regular rate and rhythm. RESPIRATORY: No accessory muscle use. Clear to auscultation. Breath sounds equal bilaterally. GASTROINTESTINAL: Abdomen soft, non-tender, non-distended. Positive bowel sounds. MUSCULOSKELETAL: 2+ edema bilateral ankles. NEUROLOGICAL: Awake and alert. No obvious cranial nerve deficits. Motor grossly within normal limits. Normal speech. - Urinary Catheter Management Indwelling Urethral Catheter Cath placed during this visit: yes, but has since been removed by the nurse Reason for continuing: Decision to DC catheter Insertion date: 05/28/18 Insertion time: 13:30 Removal date: 05/29/18 Removal time: 16:15 Assessment and Plan - Assessment (1) RADHA (acute kidney injury) Code(s): N17.9 - Status: Acute Plan: He has underlying CKD, baseline creatinine was 1.5-1.6 earlier this year. RADHA is due to rhabdomyolysis. Dialysis initiated on 05/27. Continue to monitor urine output. Serologies negative. Avoid nephrotoxic agents. Urine output has improved. Renal function appears to be improving. Draw BMP today. Continue Bumex. (2) ETOH abuse Code(s): F10.10 - Status: Acute Plan: Cessation has been advised.
[2018-06-21 10:32] LABS: Calcium 9.1 mg/dL (8.5-10.1); Carbon Dioxide 28.4 meq/L (21.0-32.0); Potassium 4.2 meq/L (3.5-5.1)
--- NOTE | 2018-06-21 14:53 | P.PNCA ---
Subjective Interval history: assymptomatic in nad Medications and Allergies Active Medications: Active Medications Acetaminophen (Tylenol) 650 mg PO Q4H PRN PRN Reason: Temp > 100.4 Acetaminophen (Tylenol) 650 mg PO UNSCH PRN PRN Reason: SEE LABEL COMMENTS Acetaminophen (Tylenol) 500 mg PO Q6H PRN PRN Reason: PAIN 1-6 Hydrocodone Bitart/Acetaminophen ([place] 7.5/325) 1 tab PO Q6H PRN PRN Reason: PAIN SCALE 6 TO 10 Last Admin: 06/21/18 13:12 Dose: 1 tab Al Hydroxide/Mg Hydroxide (Milk Of Michael Zambrano) 30 ml PO Q12H PRN PRN Reason: Mild Constipation Albuterol (Duoneb Neb (Prn)) 1 ampul NEB Q2HR NEB PRN PRN Reason: WHEEZING Bisacodyl (Dulcolax Supp) 10 mg RECTAL DAILY PRN PRN Reason: if no BM in last 24h Last Admin: 06/10/18 05:49 Dose: 10 mg Bumetanide (Bumex Inj) 2 mg IV.PUSH BID@0900,1800 [facility] Last Admin: 06/21/18 09:07 Dose: 2 mg Calcium Acetate (Phoslo) 667 mg PO TID [facility] Last Admin: 06/21/18 13:10 Dose: 667 mg Cetirizine HCl (Zyrtec) 10 mg PO BID [facility] Last Admin: 06/21/18 09:05 Dose: 10 mg Chlorhexidine Gluconate (Peridex 0.12% Oral Kit) 15 ml OROPHARYNG BID@0800, 2000 [facility] Last Admin: 06/21/18 09:03 Dose: Not Given Clopidogrel Bisulfate (Plavix) 75 mg PO DAILY [facility] Last Admin: 06/21/18 09:04 Dose: 75 mg Diphenhydramine HCl (Benadryl) 25 mg PO Q4H PRN PRN Reason: ITCHING Last Admin: 06/21/18 10:40 Dose: 25 mg Diphenhydramine HCl (Benadryl) 50 mg PO Q6H PRN PRN Reason: ITCHING Last Admin: 06/20/18 20:55 Dose: 50 mg Diphenhydramine HCl (Benadryl Inj) 50 mg IV.PUSH Q6H PRN PRN Reason: ITCHING Last Admin: 06/19/18 15:51 Dose: 50 mg Famotidine (Pepcid) 10 mg PO BID [facility] Last Admin: 06/21/18 09:06 Dose: Not Given Gelatin (Gelfoam 12 Mm/7 Mm Topical) 1 foam TOPICAL PRN PRN PRN Reason: help stop bleeding from site Gentamicin Sulfate (Gentamicin Inj) 20 mg OTHER WITH DIALYSIS PRN PRN Reason: Dwell Gentamycin Lock Last Admin: 06/21/18 09:57 Dose: 20 mg Heparin Sodium (Porcine) (Heparin Inj) 5,000 units SQ Q8HR [facility] Last Admin: 06/21/18 13:11 Dose: 5,000 units Heparin Sodium (Porcine) (Heparin Inj) 8,000 units OTHER WITH DIALYSIS PRN PRN Reason: for machine prime Last Admin: 06/04/18 12:39 Dose: 3,500 units Heparin Sodium (Porcine) (Heparin Inj) 1,000 units OTHER WITH DIALYSIS PRN PRN Reason: Dwell Heparin to Fill Catheter Last Admin: 06/21/18 09:56 Dose: 1,000 units Hydrocortisone Acetate (Hemorrhoidal Hc Supp) 25 mg RECTAL TID [facility] Last Admin: 06/21/18 13:11 Dose: 25 mg Hydrocortisone Acetate (Hydrocortisone 1% Cream) 1 applicatio TOPICAL TID PRN PRN Reason: RASH Last Admin: 06/16/18 16:09 Dose: 1 applicatio Albumin Human (Flexbumin 25% Inj) 100 mls @ 60 mls/hr IV.SIG WITH DIALYSIS PRN PRN Reason: hypotension / volume replace Last Infusion: 06/16/18 09:02 Dose: Infused Sodium Chloride (Ns Inj) 1,000 mls @ 0 mls/hr OTHER .Q0M PRN PRN Reason: for prime and rinse back Sodium Chloride (Ns Inj) 1,000 mls @ 200 mls/hr OTHER .Q5H PRN PRN Reason: for dialyzer flush PRN Sodium Chloride (Ns Inj) 1,000 mls @ 0 mls/hr IV.CONT .Q0M PRN PRN Reason: hypotension / volume replace Vasopressin 40 unit/ Dextrose 100 mls @ 6 mls/hr IV.CONT CONT [facility]; Protocol Last Infusion: 06/01/18 19:33 Dose: Infused Lactulose (Lactulose Liq) 30 ml PO BID [facility] Last Admin: 06/21/18 09:06 Dose: 30 ml Morphine Sulfate (Morphine Inj) 2 mg IV.PUSH Q4H PRN PRN Reason: BREAKTHROUGH PAIN Stop: 06/22/18 06:00 Last Admin: 06/21/18 09:09 Dose: 2 mg Naloxone HCl (Narcan Inj) 0.4 mg IV.PUSH UNSCH PRN PRN Reason: SEE LABEL COMMENTS Naloxone HCl (Narcan Inj) 0.4 mg IV.PUSH UNSCH PRN PRN Reason: SEE LABEL COMMENTS Nicotine (Habitrol 14 Mg Patch.24 Hr) 1 patch T-DERMAL DAILY [facility] Last Admin: 06/21/18 09:04 Dose: 1 patch Nitroglycerin (Nitrostat Sl) 0.4 mg SL Q5M PRN PRN Reason: CHEST PAIN Ondansetron HCl (Zofran Inj) 4 mg IV.PUSH Q6H PRN PRN Reason: NAUSEA OR VOMITING Last Admin: 05/30/18 20:46 Dose: 4 mg Ondansetron HCl (Zofran Inj) 4 mg IV.PUSH UNSCH PRN PRN Reason: NAUSEA OR VOMITING Pantoprazole Sodium (Protonix) 40 mg PO DAILY [facility] Last Admin: 06/21/18 09:05 Dose: 40 mg Patch Removal (Remove Old Patch) 1 each T-DERMAL DAILY [facility] Last Admin: 06/21/18 09:06 Dose: 1 each Polyethylene Glycol (Miralax) 17 gm PO BID [facility] Last Admin: 06/21/18 09:06 Dose: 17 gm Senna/Docusate Sodium (Najma-Colace) 1 tab PO BID [facility] Last Admin: 06/21/18 09:05 Dose: 1 tab Sennosides (Senokot) 17.2 mg PO Q12H PRN PRN Reason: Moderate Constipation Sodium Chloride (Ns Flush) 5 ml IV.FLUSH PRN PRN PRN Reason: flush each lumen during HD Sodium Chloride (Ns Flush) 2 ml IV.FLUSH UNSCH PRN PRN Reason: FLUSH AFTER USING IV ACCESS Terbutaline Sulfate (Brethine Inj) 1 mg SQ UNSCH PRN PRN Reason: For Extravasation Thiamine HCl (Vitamin B1) 100 mg PO DAILY [facility] Last Admin: 06/21/18 09:05 Dose: 100 mg Zolpidem Tartrate (Ambien) 5 mg PO HS PRN PRN Reason: INSOMNIA Last Admin: 06/01/18 01:51 Dose: 5 mg Allergies Allergy/AdvReac Type Severity Reaction Status Date / Time [id number] Reductase AdvReac Urinary Verified 06/05/18 16:04 Inhibitor Freq (Inc/Dec) Home Medications Medication Instructions Recorded Confirmed Type atorvastatin 80 mg PO DAILY 04/30/18 05/26/18 History lisinopril 10 mg PO DAILY 04/30/18 05/26/18 History Physical Exam Vital signs: Vital Signs 06/20/18 16:00 06/20/18 17:11 06/20/18 18:25 Temperature 98.3 F Pulse Rate 96 H Respiratory Rate 18 16 16 Blood Pressure 132/67 Pulse Oximetry 100 06/20/18 20:00 06/21/18 00:00 06/21/18 04:00 Temperature 97.6 F 98.0 F 98.0 F Pulse Rate 86 80 79 Respiratory Rate 17 18 18 Blood Pressure 135/72 138/70 128/66 Pulse Oximetry 100 97 95 06/21/18 08:00 Temperature 98.4 F Pulse Rate 91 H Respiratory Rate 20 Blood Pressure 129/69 Pulse Oximetry 96 Intake & Output 06/20/18 06/21/18 06/21/18 18:59 06:59 18:59 Intake Total 720 / 720 640 / 640 Output Total 1425 / 1425 3250 / 3250 Balance -705 / -705 640 / 640 -3250 / -3250 Weight 92.5 kg Intake: Oral 720 / 720 640 / 640 Output: Urine 1425 / 1425 250 / 250 Hemodialysis Amount 3000 / 3000 Other: Date of Last Bowel Movement 06/19/18 - Urinary Catheter Management Indwelling Urethral Catheter Cath placed during this visit: yes, but has since been removed by the nurse Reason for continuing: Decision to DC catheter Insertion date: 05/28/18 Insertion time: 13:30 Removal date: 05/29/18 Removal time: 16:15 Results 06/16/18 03:48 06/21/18 09:50 Comprehensive Metabolic Panel 06/21/18 Range/Units 09:50 Sodium 136 (136-145) meq/L Potassium 4.2 (3.5-5.1) meq/L Chloride 95 L (98-107) meq/L Carbon Dioxide 28.4 (21.0-32.0) meq/L BUN 55 H (7-18) mg/dL Creatinine 7.60 H (0.60-1.30) mg/dL Calcium 9.1 (8.5-10.1) mg/dL Intake and Output 06/20/18 06/21/18 06/21/18 22:59 06:59 14:59 Intake Total 480 / 480 640 / 640 Output Total 625 / 625 3250 / 3250 Balance -145 / -145 640 / 640 -3250 / -3250 Intake: Oral 480 / 480 640 / 640 Output: Urine 625 / 625 250 / 250 Hemodialysis Amount 3000 / 3000 Other: Date of Last Bowel Movement 06/19/18 Weight 92.5 kg Assessment and Plan - Assessment (1) Thrombocytopenia Code(s): D69.6 - Thrombocytopenia, unspecified Status: Acute (2) Anemia Code(s): D64.9 - Anemia, unspecified Status: Acute (3) Leukemia Code(s): C95.90 - Leukemia, unspecified not having achieved remission Status: Acute (4) NSTEMI (non-ST elevated myocardial infarction) Code(s): I21.4 - Non-ST elevation (NSTEMI) myocardial infarction Status: Acute (5) Tobacco abuse Code(s): Z72.0 - Tobacco use Status: Acute (6) RADHA (acute kidney injury) Code(s): N17.9 - Acute kidney failure, unspecified Status: Acute (7) ETOH abuse Code(s): F10.10 - Alcohol abuse, uncomplicated Status: Acute (8) Rectal pain Code(s): K62.89 - Other specified diseases of anus and rectum Status: Deleted (9) Metabolic acidosis Code(s): E87.2 - Acidosis Status: Acute (10) Diverticulitis Code(s): K57.92 - Diverticulitis of intestine, part unspecified, without perforation or abscess without bleeding Status: Acute (11) Acute renal failure Code(s): N17.9 - Acute kidney failure, unspecified Status: Acute (12) Transaminitis Code(s): R74.0 - Nonspecific elevation of levels of transaminase and lactic acid dehydrogenase [LDH] Status: Acute (13) Alcohol abuse Code(s): F10.10 - Alcohol abuse, uncomplicated Status: Acute - Plan 1.) NSTEMI - suspect trop elevation due to arf which appears to be due to rhabdomyolysis, he is assymptomatic 2.) Afib - 2d echo ef=50%, [id number] score=1, male gender, ac held due to unstable platelet count, hgb and liver function, continue to f/u trends in lfts , hgb, plt ct; rash started @ time aspirin 81 mg qd started 06/01/18, will dc aspirin and start plavix 75 mg qd, 06/05/18, no improvement in rash, i explained to patient that if due to aspirin may take several days for plasma levels of aspirin to decrease and to see improvement if rash is due to aspirin, ; not good candidate for ac with noac or coumadin due to alcohol abuse, liver failure , fall risk and unstable hgb and platelet count 3.) Respiratory failure - ef=50% on echo, assymptomatic 05/27/18, possibly due to volume overload from arf, improved with dialysis 4.) Rash - improved (11) Acute renal failure Qualifiers: Acute renal failure type: unspecified Qualified Code(s): N17.9 - Acute kidney failure, unspecified
[2018-06-22] MEDS: Morphine Sulfate Inj 2 MG/ML Vial IV.PUSH PRN ×2 (00:15→05:00)
[2018-06-22] MEDS: Oral Hygiene Kit OROPHARYNG SCH ×4 (01:42→18:44)
[2018-06-22] MEDS: Heparin - SQ 10,000 UNITS/ML Vial SQ SCH ×3 (05:00→23:31)
[2018-06-22 07:39] LABS: Albumin 3.5 g/dL (3.4-5.0); Calcium 9.4 mg/dL (8.5-10.1); Carbon Dioxide 30.4 meq/L (21.0-32.0); Potassium 3.9 meq/L (3.5-5.1)
--- NOTE | 2018-06-22 09:34 | P.PNNP ---
Subjective Interval history: Patient's urine output has improved. Dialyzed yesterday. Asking for narcotics. Lower extremity edema persists, but improved. Physical Exam Vital signs: Vital Signs 06/21/18 16:00 06/21/18 20:00 06/22/18 00:00 Temperature 98.6 F 98.3 F 98.1 F Pulse Rate 87 88 92 H Respiratory Rate 20 18 18 Blood Pressure 121/65 118/59 L 126/81 Pulse Oximetry 96 98 98 06/22/18 04:00 06/22/18 08:00 Temperature 98.2 F 98.4 F Pulse Rate 85 87 Respiratory Rate 18 18 Blood Pressure 115/58 L 125/61 Pulse Oximetry 99 97 Intake & Output 06/21/18 06/22/18 06/22/18 18:59 06:59 18:59 Intake Total 900 / 900 240 / 240 220 / 220 Output Total 8451 / 8451 Balance -7551 / -7551 240 / 240 220 / 220 Weight 92.5 kg Intake: Oral 840 / 840 240 / 240 220 / 220 Tube Irrigant 60 / 60 Output: Urine 2450 / 2450 Stool Hemodialysis Amount 6000 / 6000 Other: Post Void Residual 400 # Voids 5 3 Date of Last Bowel Movement 06/19/18 06/20/18 # Bowel Movements 2 # Oral Regurgitations 5 Narrative: GENERAL: Well-nourished, well-developed adult male in no obvious distress. SKIN: Warm and dry. PermCath in right IJ HEAD: Atraumatic. Normocephalic. CARDIOVASCULAR: Regular rate and rhythm. RESPIRATORY: No accessory muscle use. Clear to auscultation. Breath sounds equal bilaterally. GASTROINTESTINAL: Abdomen soft, non-tender, non-distended. Positive bowel sounds. MUSCULOSKELETAL: 2+ edema bilateral ankles. NEUROLOGICAL: Awake and alert. No obvious cranial nerve deficits. Motor grossly within normal limits. Normal speech. - Urinary Catheter Management Indwelling Urethral Catheter Cath placed during this visit: yes, but has since been removed by the nurse Reason for continuing: Decision to DC catheter Insertion date: 05/28/18 Insertion time: 13:30 Removal date: 05/29/18 Removal time: 16:15 Assessment and Plan - Assessment (1) RADHA (acute kidney injury) Code(s): N17.9 - Acute kidney failure, unspecified Status: Acute Plan: He has underlying CKD, baseline creatinine was 1.5-1.6 earlier this year. RADHA is due to rhabdomyolysis. Dialysis initiated on 05/27. Continue to monitor urine output: it has improved. Avoid nephrotoxic agents. Urine output has improved. Renal function appears to be improving. Repeat labs tomorrow: dialysis only if necessary. Continue Bumex. (2) ETOH abuse Code(s): F10.10 - Alcohol abuse, uncomplicated Status: Acute Plan: Cessation has been advised.
[2018-06-22] MEDS: Senna/Docusate Sodium 8.6/50 MG Tablet PO SCH ×2 (09:37→20:38)
[2018-06-22] MEDS: Calcium Acetate 667 MG Capsule PO SCH ×3 (09:38→18:41)
[2018-06-22] MEDS: Hydrocortisone Acetate 25 MG Supp RECTAL SCH ×3 (09:44→17:55)
[2018-06-22] MEDS: Polyethylene Glycol 3350 17 GM Packet PO SCH ×2 (09:45→20:38)
[2018-06-22] MEDS: Chlorhexidine 0.12% Oral Kit 15 ML UDC OROPHARYNG SCH ×2 (09:51→20:40)
[2018-06-22] MEDS: Famotidine 20 MG Tablet PO SCH ×2 (10:02→20:40)
--- NOTE | 2018-06-22 11:22 | P.PN ---
Subjective Interval history: Follow-up on patient with acute renal failure, rhabdomyolysis. Patient seen and examined. Patient is currently upset his morphine was discontinued earlier this morning for treatment of his hemorrhoid pain. Patient states he is a longtime suffer of internal hemorrhoids and has been told by his GI physician that he needs surgery. He states that his hemorrhoids have been progressive since he has been in the hospital and have begun to affect his functionality. He reports minimal relief with hemorrhoid cream and Anusol. He states he has severe burning pain with defecation. He states he has constant rectal pain with severe intermittent spasms. He is asking if his [place] can be increased from every 6 hours to every 4 hours. He denies any black/bloody/tarry stools. His last colonoscopy was in 2015. He denies any chest pain or shortness of breath. He states he sometimes gets nauseous with the pain is very bad. He reports good urinary output. He complains of swelling in his legs and feet which also causes pain with ambulation. He also states the dry cracked skin on his heels causes him pain. Physical Exam Vital signs: Vital Signs 06/21/18 16:00 06/21/18 20:00 06/22/18 00:00 Temperature 98.6 F 98.3 F 98.1 F Pulse Rate 87 88 92 H Respiratory Rate 20 18 18 Blood Pressure 121/65 118/59 L 126/81 Pulse Oximetry 96 98 98 06/22/18 04:00 06/22/18 08:00 Temperature 98.2 F 98.4 F Pulse Rate 85 87 Respiratory Rate 18 18 Blood Pressure 115/58 L 125/61 Pulse Oximetry 99 97 Intake & Output 06/21/18 06/22/18 06/22/18 18:59 06:59 18:59 Intake Total 900 / 900 240 / 240 220 / 220 Output Total 8451 / 8451 Balance -7551 / -7551 240 / 240 220 / 220 Weight 92.5 kg Intake: Oral 840 / 840 240 / 240 220 / 220 Tube Irrigant 60 / 60 Output: Urine 2450 / 2450 Stool Hemodialysis Amount 6000 / 6000 Other: Post Void Residual 400 # Voids 5 3 Date of Last Bowel Movement 06/19/18 06/20/18 # Bowel Movements 2 # Oral Regurgitations 5 Narrative: GENERAL: WDWN male patient, in no acute distress. Awake and alert. SKIN: Warm and dry. +PermCath in right IJ. +dry chapped heels bilaterally. HEENT: Atraumatic. Normocephalic. Pupils equal and round. No scleral icterus. No injection or drainage. No nasal bleeding or discharge. Mucous membranes pink and moist. NECK: Trachea midline. No JVD. CARDIOVASCULAR: Regular rate and rhythm. RESPIRATORY: No accessory muscle use. Clear to auscultation. Breath sounds equal bilaterally. GASTROINTESTINAL: Abdomen soft, non-tender, nondistended. +BS. MUSCULOSKELETAL: Extremities without clubbing or cyanosis. 1-2+ bilateral lower extremity edema. NEUROLOGICAL: Awake and alert. No obvious cranial nerve deficits. Motor grossly within normal limits. Able to move all extremities spontaneously. Normal speech. PSYCHIATRIC: Calm and cooperative. - Urinary Catheter Management Indwelling Urethral Catheter Cath placed during this visit: yes, but has since been removed by the nurse Reason for continuing: Decision to DC catheter Insertion date: 05/28/18 Insertion time: 13:30 Removal date: 05/29/18 Removal time: 16:15 Results - Labs CBC & Chem 7: 06/16/18 03:48 06/22/18 06:07 Laboratory Results - last 24 hr 06/22/18 06:07 Sodium 139 Potassium 3.9 Chloride 98 Carbon Dioxide 30.4 Anion Gap 11 BUN 34 H Creatinine 5.50 H Estimated GFR 11 L Random Glucose 106 Calcium 9.4 Phosphorus 5.0 H Albumin 3.5 - Procedures 53-year-old male with acute hypoxic and hypercarbic respiratory failure and acute severe metabolic encephalopathy with associated multiorgan failure including renal failure and liver failure. Patient initially required intubation /ICU care; he has since stabilized and transferred to hospitalist service: 06/16: No significant changes to medical plan. Renal Acute renal failure secondary to rhabdomyolysis from statin. No obstruction. Significant proteinuria. Serology negative. Mild CKD at baseline prior to acute injury. Dialysis started 05/27 -Nephrology consulted -Continue dialysis -s/p dialysis 06/16 -monitor urine output -hold Lisinopril, other nephrotoxins Respiratory Acute hypoxic and hypercarbic respiratory failure: Status post intubation and extubation. Echo with EF 50%; suspected failure from ARF - Supplemental oxygen as needed. - Breathing treatments as needed. -Dialysis as below Cardiovascular Elevated troponin Atrial fibrillation Impression: Cardiology consulted. Echo- EF 50%. [id number] 1. Determined anticoagulation risk high for multiple risks -Continue Plavix -Continue to monitor labs/platelet count Statin induced rhabdomyolysis -Ongoing hemodialysis as above. -Continue to trend CK levels. Alcohol dependence: - Off [facility] protocol. - No signs of withdrawal currently Acute liver failure Impression: Downtrending LFT's. Transaminases >1000 05/26 ----> less than 100 . - Follow LFTs. -s/p lactulose (Ammonia <10 06/04) Acute diverticulitis/rectal pain Impression: 05/26 A/P CT with sigmoid diverticulitis. no reported recent symptoms. Cipro/Flagyl stopped -Continue to monitor Rash: Probable drug reaction: Cipro and Flagyl previously discontinued. Benadryl as needed. Continue Zyrtec and Pepcid. Tobacco dependence -Nicotine patch given DVT PPX Heparin 5K U q8hrs Code Status: Full code Discharge Planning: Pending renal improvement/Nephrology recommendations Assessment and Plan - Assessment (1) RADHA (acute kidney injury) Code(s): N17.9 - Acute kidney failure, unspecified Status: Acute (2) Acute renal failure Code(s): N17.9 - Acute kidney failure, unspecified Status: Acute (3) Transaminitis Code(s): R74.0 - Nonspecific elevation of levels of transaminase and lactic acid dehydrogenase [LDH] Status: Acute (4) Alcohol abuse Code(s): F10.10 - Alcohol abuse, uncomplicated Status: Acute (5) Rhabdomyolysis due to statin therapy Code(s): M62.82 - Rhabdomyolysis Status: Acute (6) NSTEMI (non-ST elevated myocardial infarction) Code(s): I21.4 - Non-ST elevation (NSTEMI) myocardial infarction Status: Acute - Plan 53-year-old male with acute hypoxic and hypercarbic respiratory failure and acute severe metabolic encephalopathy with associated multiorgan failure including renal failure and liver failure. Patient initially required intubation /ICU care; he has since stabilized and transferred to hospitalist service: Renal Acute renal failure secondary to rhabdomyolysis from statin. No obstruction. Significant proteinuria. Serology negative. Mild CKD at baseline prior to acute injury. Baseline Cr 1.5-1.6 Dialysis started 05/27 - Nephrology following, appreciate assistance. Continue HD as necessary per Nephrology. Continue fluid restricted diet and Bumex 2mg IV BID. - continue to hold Lisinopril, other nephrotoxins - UOP improved, continue to monitor - monitor kidney function Respiratory Acute hypoxic and hypercarbic respiratory failure: Status post intubation and extubation. Echo with EF 50%; suspected failure from ARF - Supplemental oxygen as needed. - Breathing treatments as needed. Cardiovascular Elevated troponin Atrial fibrillation Impression: Cardiology consulted. Echo- EF 50%. [id number] 1. Determined anticoagulation risk high for multiple risks - Continue Plavix - Continue to monitor labs/platelet count as indicated Alcohol dependence: - Off [facility] protocol. - No signs of withdrawal currently Acute liver failure Impression: Downtrending LFT's. Transaminases >1000 05/26 ----> less than 100 . - Follow LFTs. - s/p lactulose (Ammonia <10 06/04) - repeat LFTs in am, patient on [place] for hemorrhoid pain Acute diverticulitis/rectal pain/hemorrhoids Impression: 05/26 A/P CT with sigmoid diverticulitis. no reported recent symptoms. Cipro/Flagyl stopped - complaining of severe/debilitating and progressive rectal pain/spasms secondary to hemorrhoids. Requesting to be resumed on Morphine. Also asking if dose of [place] and be increased to q4h. Will consult GI for recommendations, very much appreciate assistance. - continue with Anusol Rash: Probable drug reaction: Cipro and Flagyl previously discontinued. Benadryl as needed. Continue Zyrtec and Pepcid. Tobacco dependence -Nicotine patch given DVT PPX Heparin sq Code Status: FULL Discussed Condition With: patient, nursing staff Discharge Planning: Discharge pending improvement in renal function and nephrology clearance. (2) Acute renal failure Qualifiers: Acute renal failure type: unspecified Qualified Code(s): N17.9 - Acute kidney failure, unspecified
[2018-06-22] MEDS: Lactic Acid (Ammonium Lactate) 12% Lotion 225 GM Bottle TOPICAL SCH ×2 (15:00→20:40)
--- NOTE | 2018-06-22 17:10 | P.CONGI ---
History of Present Illness Consult date: 06/22/18 Consult reason: Rectal pain history of internal hemorrhoids Chief complaint: DIVERTICULITIS RENAL FAILURE POSITIVE TROPONINS History of Present Illness: This is a 53-year-old male who was admitted to the hospital on 05/26/2018 with acute renal failure rhabdomyolysis and is currently stabilized with dialysis 3 times a week according to the record patient has had multiple comorbidities which include diverticulitis diagnosed on CT scan on admission and was treated. Currently patient denies any abdominal pain, no diarrhea no constipation and states medications are assisting him with daily bathroom regimens formed brown stools with no obvious bleeding. Patient also notes no straining with defecation, but does note a history of constipation in the past. Patient has a history of internal hemorrhoids which have give him chronic pain since at least 2015 if not before. Last colonoscopy noted internal hemorrhoids were in a cluster he states. 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 Patient states he has used multiple types of [id number] medicines and has been on rectal HC suppositories 3 times a day with minimal effectiveness. Patient states that his pain meds have been what has kept him more comfortable during this hospital stay. Patient notes EGD around year 2013. Currently denies any nausea vomiting dyspepsia or dysphasia and no obvious hematemesis. Last hemoglobin check was 8., Hepatitis panel nonreactive. Patient is being followed per cardiology for atrial fib and is currently on Plavix. Gastroenterology was consulted to assist with patient's rectal pain and any further recommendations and treatment regimens. Discussed with patient the need for repeat colonoscopy and or sigmoidoscopy when he is stable from a cardiac standpoint but currently patient is not wanting to pursue any type of GI procedures while he is in the hospital. He states that he is finally doing better and hopes to discharge soon and wants to follow-up on an outpatient basis. 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.) - Medical History Medical History: Medical History (Last Reviewed 06/09/18 @ 08:29 by Elena Hernandez) Hairy cell leukemia Alcohol abuse Diverticulosis Enlarged prostate HTN (hypertension) Hemorrhoids Hypercholesterolemia Leukemia Sleep apnea Smoker - Surgical History Surgical History: Surgical History (Last Reviewed 06/07/18 @ 06:49 by Sha Asif) History of hernia repair - Family History Family History: Family History (Last Reviewed 05/27/18 @ 11:55 by Nela Armando) Other Family history of hypertension - Tobacco History Second Hand Smoke Exposure: No Tobacco Use In Past 30 Days: Yes Smoking Status: Current every day smoker Tobacco Type: Cigarettes - Alcohol History How Often Do You Have a Drink Containing Alcohol: 2 to 3 times a week - Substance Use History Substance History: No History of Abuse - Substance Use Type Marijuana Status: Early Remission Route Used: Inhalation Frequency: weekly Reason for Use: Calm Down - Travel History History of Recent Travel: No Recent Travel in the [place] Within the Last 8 Weeks: No Recent Travel Out of the Country Within the Last 8 Weeks: No - Immunization History Tetanus Immunization: Unsure Hx Influenza Vaccine This Season: No <Martha Calvo - Last Filed: 06/22/18 17:10> - Medical History Medical History: Medical History (Last Reviewed 06/09/18 @ 08:29 by Elena Hernandez) Hairy cell leukemia Alcohol abuse Diverticulosis Enlarged prostate HTN (hypertension) Hemorrhoids Hypercholesterolemia Leukemia Sleep apnea Smoker - Surgical History Surgical History: Surgical History (Last Reviewed 06/07/18 @ 06:49 by Sha Asif) History of hernia repair - Family History Family History: Family History (Last Reviewed 05/27/18 @ 11:55 by Nela Armando) Other Family history of hypertension <Piyush Maguire - Last Filed: 06/22/18 19:27> Medications and Allergies Active Medications: Active Medications Acetaminophen (Tylenol) 650 mg PO Q4H PRN PRN Reason: Temp > 100.4 Acetaminophen (Tylenol) 650 mg PO UNSCH PRN PRN Reason: SEE LABEL COMMENTS Acetaminophen (Tylenol) 500 mg PO Q6H PRN PRN Reason: PAIN 1-6 Hydrocodone Bitart/Acetaminophen ([place] 7.5/325) 1 tab PO Q6H PRN PRN Reason: PAIN SCALE 6 TO 10 Last Admin: 06/22/18 13:55 Dose: 1 tab Al Hydroxide/Mg Hydroxide (Milk Of Magnesia Liq) 30 ml PO Q12H PRN PRN Reason: Mild Constipation Albuterol (Duoneb Neb (Prn)) 1 ampul NEB Q2HR NEB PRN PRN Reason: WHEEZING Bisacodyl (Dulcolax Supp) 10 mg RECTAL DAILY PRN PRN Reason: if no BM in last 24h Last Admin: 06/10/18 05:49 Dose: 10 mg Bumetanide (Bumex Inj) 2 mg IV.PUSH BID@0900,1800 [facility] [place] Last Admin: 06/22/18 09:55 Dose: 2 mg Calcium Acetate (Phoslo) 667 mg PO TID [facility] [place] Last Admin: 06/22/18 12:42 Dose: 667 mg Cetirizine HCl (Zyrtec) 10 mg PO BID [facility] [place] Last Admin: 06/22/18 09:37 Dose: 10 mg Chlorhexidine Gluconate (Peridex 0.12% Oral Kit) 15 ml OROPHARYNG BID@0800, 2000 [facility] [place] Last Admin: 06/22/18 09:51 Dose: Not Given Clopidogrel Bisulfate (Plavix) 75 mg PO DAILY [facility] [place] Last Admin: 06/22/18 09:38 Dose: 75 mg Diphenhydramine HCl (Benadryl) 25 mg PO Q4H PRN PRN Reason: ITCHING Last Admin: 06/22/18 01:37 Dose: 25 mg Diphenhydramine HCl (Benadryl) 50 mg PO Q6H PRN PRN Reason: ITCHING Last Admin: 06/20/18 20:55 Dose: 50 mg Diphenhydramine HCl (Benadryl Inj) 50 mg IV.PUSH Q6H PRN PRN Reason: ITCHING Last Admin: 06/19/18 15:51 Dose: 50 mg Famotidine (Pepcid) 10 mg PO BID [facility] [place] Last Admin: 06/22/18 10:02 Dose: Not Given Gelatin (Gelfoam 12 Mm/7 Mm Topical) 1 foam TOPICAL PRN PRN PRN Reason: help stop bleeding from site Gentamicin Sulfate (Gentamicin Inj) 20 mg OTHER WITH DIALYSIS PRN PRN Reason: Dwell Gentamycin Lock Last Admin: 06/21/18 09:57 Dose: 20 mg Heparin Sodium (Porcine) (Heparin Inj) 5,000 units SQ Q8HR [facility] [place] Last Admin: 06/22/18 13:55 Dose: 5,000 units Heparin Sodium (Porcine) (Heparin Inj) 8,000 units OTHER WITH DIALYSIS PRN PRN Reason: for machine prime Last Admin: 06/04/18 12:39 Dose: 3,500 units Heparin Sodium (Porcine) (Heparin Inj) 1,000 units OTHER WITH DIALYSIS PRN PRN Reason: Dwell Heparin to Fill Catheter Last Admin: 06/21/18 09:56 Dose: 1,000 units Hydrocortisone Acetate (Hemorrhoidal Hc Supp) 25 mg RECTAL TID [facility]I Last Admin: 06/22/18 12:45 Dose: 25 mg Hydrocortisone Acetate (Hydrocortisone 1% Cream) 1 applicatio TOPICAL TID PRN PRN Reason: RASH Last Admin: 06/22/18 12:39 Dose: 1 applicatio Albumin Human (Flexbumin 25% Inj) 100 mls @ 60 mls/hr IV.SIG WITH DIALYSIS PRN PRN Reason: hypotension / volume replace Last Infusion: 06/16/18 09:02 Dose: Infused Sodium Chloride (Ns Inj) 1,000 mls @ 0 mls/hr OTHER .Q0M PRN PRN Reason: for prime and rinse back Sodium Chloride (Ns Inj) 1,000 mls @ 200 mls/hr OTHER .Q5H PRN PRN Reason: for dialyzer flush PRN Sodium Chloride (Ns Inj) 1,000 mls @ 0 mls/hr IV.CONT .Q0M PRN PRN Reason: hypotension / volume replace Vasopressin 40 unit/ Dextrose 100 mls @ 6 mls/hr IV.CONT CONT [facility] [place]; Protocol Last Infusion: 06/01/18 19:33 Dose: Infused Lactic Acid (Lac-Hydrin 12% Lotion) 1 applicatio TOPICAL BID [facility] [place] Lactulose (Lactulose Liq) 30 ml PO BID [facility] [place] Last Admin: 06/22/18 09:37 Dose: 30 ml Naloxone HCl (Narcan Inj) 0.4 mg IV.PUSH UNSCH PRN PRN Reason: SEE LABEL COMMENTS Naloxone HCl (Narcan Inj) 0.4 mg IV.PUSH UNSCH PRN PRN Reason: SEE LABEL COMMENTS Nicotine (Habitrol 14 Mg Patch.24 Hr) 1 patch T-DERMAL DAILY [facility] [place] Last Admin: 06/22/18 09:44 Dose: 1 patch Nitroglycerin (Nitrostat Sl) 0.4 mg SL Q5M PRN PRN Reason: CHEST PAIN Ondansetron HCl (Zofran Inj) 4 mg IV.PUSH Q6H PRN PRN Reason: NAUSEA OR VOMITING Last Admin: 05/30/18 20:46 Dose: 4 mg Ondansetron HCl (Zofran Inj) 4 mg IV.PUSH UNSCH PRN PRN Reason: NAUSEA OR VOMITING Pantoprazole Sodium (Protonix) 40 mg PO DAILY [facility] [place] Last Admin: 06/22/18 10:02 Dose: Not Given Patch Removal (Remove Old Patch) 1 each T-DERMAL DAILY [facility] [place] Last Admin: 06/22/18 09:38 Dose: 1 each Polyethylene Glycol (Miralax) 17 gm PO BID [facility] [place] Last Admin: 06/22/18 09:45 Dose: 17 gm Senna/Docusate Sodium (Najma-Colace) 1 tab PO BID [facility] [place] Last Admin: 06/22/18 09:37 Dose: 1 tab Sennosides (Senokot) 17.2 mg PO Q12H PRN PRN Reason: Moderate Constipation Sodium Chloride (Ns Flush) 5 ml IV.FLUSH PRN PRN PRN Reason: flush each lumen during HD Sodium Chloride (Ns Flush) 2 ml IV.FLUSH UNSCH PRN PRN Reason: FLUSH AFTER USING IV ACCESS Terbutaline Sulfate (Brethine Inj) 1 mg SQ UNSCH PRN PRN Reason: For Extravasation Thiamine HCl (Vitamin B1) 100 mg PO DAILY [facility] [place] Last Admin: 06/22/18 09:38 Dose: 100 mg Zolpidem Tartrate (Ambien) 5 mg PO HS PRN PRN Reason: INSOMNIA Last Admin: 06/01/18 01:51 Dose: 5 mg <Martha Calvo - Last Filed: 06/22/18 17:10> Active Medications: Active Medications Acetaminophen (Tylenol) 650 mg PO Q4H PRN PRN Reason: Temp > 100.4 Acetaminophen (Tylenol) 650 mg PO UNSCH PRN PRN Reason: SEE LABEL COMMENTS Acetaminophen (Tylenol) 500 mg PO Q6H PRN PRN Reason: PAIN 1-6 Hydrocodone Bitart/Acetaminophen ([place] 7.5/325) 1 tab PO Q6H PRN PRN Reason: PAIN SCALE 6 TO 10 Last Admin: 06/22/18 18:41 Dose: 1 tab Al Hydroxide/Mg Hydroxide (Milk Of Magnesia Liq) 30 ml PO Q12H PRN PRN Reason: Mild Constipation Albuterol (Duoneb Neb (Prn)) 1 ampul NEB Q2HR NEB PRN PRN Reason: WHEEZING Bisacodyl (Dulcolax Supp) 10 mg RECTAL DAILY PRN PRN Reason: if no BM in last 24h Last Admin: 06/10/18 05:49 Dose: 10 mg Bumetanide (Bumex Inj) 2 mg IV.PUSH BID@0900,1800 [facility] [place] Last Admin: 06/22/18 18:40 Dose: 2 mg Calcium Acetate (Phoslo) 667 mg PO TID [facility] [place] Last Admin: 06/22/18 18:41 Dose: 667 mg Cetirizine HCl (Zyrtec) 10 mg PO BID [facility] [place] Last Admin: 06/22/18 09:37 Dose: 10 mg Chlorhexidine Gluconate (Peridex 0.12% Oral Kit) 15 ml OROPHARYNG BID@0800, 2000 [facility] [place] Last Admin: 06/22/18 09:51 Dose: Not Given Clopidogrel Bisulfate (Plavix) 75 mg PO DAILY [facility] [place] Last Admin: 06/22/18 09:38 Dose: 75 mg Diphenhydramine HCl (Benadryl) 25 mg PO Q4H PRN PRN Reason: ITCHING Last Admin: 06/22/18 01:37 Dose: 25 mg Diphenhydramine HCl (Benadryl) 50 mg PO Q6H PRN PRN Reason: ITCHING Last Admin: 06/20/18 20:55 Dose: 50 mg Diphenhydramine HCl (Benadryl Inj) 50 mg IV.PUSH Q6H PRN PRN Reason: ITCHING Last Admin: 06/19/18 15:51 Dose: 50 mg Famotidine (Pepcid) 10 mg PO BID [facility] [place] Last Admin: 06/22/18 10:02 Dose: Not Given Gelatin (Gelfoam 12 Mm/7 Mm Topical) 1 foam TOPICAL PRN PRN PRN Reason: help stop bleeding from site Gentamicin Sulfate (Gentamicin Inj) 20 mg OTHER WITH DIALYSIS PRN PRN Reason: Dwell Gentamycin Lock Last Admin: 06/21/18 09:57 Dose: 20 mg Heparin Sodium (Porcine) (Heparin Inj) 5,000 units SQ Q8HR [facility] [place] Last Admin: 06/22/18 13:55 Dose: 5,000 units Heparin Sodium (Porcine) (Heparin Inj) 8,000 units OTHER WITH DIALYSIS PRN PRN Reason: for machine prime Last Admin: 06/04/18 12:39 Dose: 3,500 units Heparin Sodium (Porcine) (Heparin Inj) 1,000 units OTHER WITH DIALYSIS PRN PRN Reason: Dwell Heparin to Fill Catheter Last Admin: 06/21/18 09:56 Dose: 1,000 units Hydrocortisone Acetate (Hemorrhoidal Hc Supp) 25 mg RECTAL TID [facility] Last Admin: 06/22/18 12:45 Dose: 25 mg Hydrocortisone Acetate (Hydrocortisone 1% Cream) 1 applicatio TOPICAL TID PRN PRN Reason: RASH Last Admin: 06/22/18 12:39 Dose: 1 applicatio Albumin Human (Flexbumin 25% Inj) 100 mls @ 60 mls/hr IV.SIG WITH DIALYSIS PRN PRN Reason: hypotension / volume replace Last Infusion: 06/16/18 09:02 Dose: Infused Sodium Chloride (Ns Inj) 1,000 mls @ 0 mls/hr OTHER .Q0M PRN PRN Reason: for prime and rinse back Sodium Chloride (Ns Inj) 1,000 mls @ 200 mls/hr OTHER .Q5H PRN PRN Reason: for dialyzer flush PRN Sodium Chloride (Ns Inj) 1,000 mls @ 0 mls/hr IV.CONT .Q0M PRN PRN Reason: hypotension / volume replace Vasopressin 40 unit/ Dextrose 100 mls @ 6 mls/hr IV.CONT CONT [facility] [place]; Protocol Last Infusion: 06/01/18 19:33 Dose: Infused Lactic Acid (Lac-Hydrin 12% Lotion) 1 applicatio TOPICAL BID [facility] [place] Last Admin: 06/22/18 15:00 Dose: 1 applicatio Lactulose (Lactulose Liq) 30 ml PO BID [facility] [place] Last Admin: 06/22/18 09:37 Dose: 30 ml Naloxone HCl (Narcan Inj) 0.4 mg IV.PUSH UNSCH PRN PRN Reason: SEE LABEL COMMENTS Naloxone HCl (Narcan Inj) 0.4 mg IV.PUSH UNSCH PRN PRN Reason: SEE LABEL COMMENTS Nicotine (Habitrol 14 Mg Patch.24 Hr) 1 patch T-DERMAL DAILY [facility] [place] Last Admin: 06/22/18 09:44 Dose: 1 patch Nitroglycerin (Nitrostat Sl) 0.4 mg SL Q5M PRN PRN Reason: CHEST PAIN Ondansetron HCl (Zofran Inj) 4 mg IV.PUSH Q6H PRN PRN Reason: NAUSEA OR VOMITING Last Admin: 05/30/18 20:46 Dose: 4 mg Ondansetron HCl (Zofran Inj) 4 mg IV.PUSH UNSCH PRN PRN Reason: NAUSEA OR VOMITING Pantoprazole Sodium (Protonix) 40 mg PO DAILY [facility] [place] Last Admin: 06/22/18 10:02 Dose: Not Given Patch Removal (Remove Old Patch) 1 each T-DERMAL DAILY [facility] [place] Last Admin: 06/22/18 09:38 Dose: 1 each Polyethylene Glycol (Miralax) 17 gm PO BID [facility] [place] Last Admin: 06/22/18 09:45 Dose: 17 gm Senna/Docusate Sodium (Najma-Colace) 1 tab PO BID [facility] [place] Last Admin: 06/22/18 09:37 Dose: 1 tab Sennosides (Senokot) 17.2 mg PO Q12H PRN PRN Reason: Moderate Constipation Sodium Chloride (Ns Flush) 5 ml IV.FLUSH PRN PRN PRN Reason: flush each lumen during HD Sodium Chloride (Ns Flush) 2 ml IV.FLUSH UNSCH PRN PRN Reason: FLUSH AFTER USING IV ACCESS Terbutaline Sulfate (Brethine Inj) 1 mg SQ UNSCH PRN PRN Reason: For Extravasation Thiamine HCl (Vitamin B1) 100 mg PO DAILY [facility] [place] Last Admin: 06/22/18 09:38 Dose: 100 mg Zolpidem Tartrate (Ambien) 5 mg PO HS PRN PRN Reason: INSOMNIA Last Admin: 06/01/18 01:51 Dose: 5 mg <Piyush Maguire E - Last Filed: 06/22/18 19:27> Allergies Allergy/AdvReac Type Severity Reaction Status Date / Time Tetnwtv-[id number]-Bme Reductase AdvReac Urinary Verified 06/05/18 16:04 Inhibitor Freq (Inc/Dec) Home Medications Medication Instructions Recorded Confirmed Type atorvastatin 80 mg PO DAILY 04/30/18 05/26/18 History lisinopril 10 mg PO DAILY 04/30/18 05/26/18 History Exam Vital signs: Vital Signs 06/21/18 20:00 06/22/18 00:00 06/22/18 04:00 Temperature 98.3 F 98.1 F 98.2 F Pulse Rate 88 92 H 85 Respiratory Rate 18 18 18 Blood Pressure 118/59 L 126/81 115/58 L Pulse Oximetry 98 98 99 06/22/18 08:00 06/22/18 12:00 Temperature 98.4 F 98.4 F Pulse Rate 87 93 H Respiratory Rate 18 20 Blood Pressure 125/61 124/67 Pulse Oximetry 97 100 Intake & Output 06/21/18 06/22/18 06/22/18 18:59 06:59 18:59 Intake Total 900 / 900 240 / 240 460 / 460 Output Total 8451 / 8451 Balance -7551 / -7551 240 / 240 460 / 460 Weight 92.5 kg Intake: Oral 840 / 840 240 / 240 460 / 460 Tube Irrigant 60 / 60 Output: Urine 2450 / 2450 Stool Hemodialysis Amount 6000 / 6000 Other: Post Void Residual 400 # Voids 5 3 Date of Last Bowel Movement 06/19/18 06/20/18 06/22/18 # Bowel Movements 2 # Oral Regurgitations 5 - Constitutional no acute distress, obese, disheveled - Routine HEENT Exam Head: Present: normocephalic ENT: Present: mucous membranes dry - Routine Neck Exam Present: supple - Routine Respiratory Exam Present: accessory muscle use (No obvious shortness of breath at rest) - Routine Cardiovascular Exam Present: S1, S2, irregular rhythm - Routine Abdominal Exam Present: normoactive bowel sounds (Round, soft, no obvious abdominal pain or distention with light palpation) - Routine Skin Exam Present: dry (Some mild cracking noted in feet bilateral, but no obvious broken or bleeding scan) - Routine Neurological Exam Present: alert (Sleeping but arouses to verbal stimuli) <Martha Calvo - Last Filed: 06/22/18 17:10> Vital signs: Vital Signs 06/21/18 20:00 06/22/18 00:00 06/22/18 04:00 Temperature 98.3 F 98.1 F 98.2 F Pulse Rate 88 92 H 85 Respiratory Rate 18 18 18 Blood Pressure 118/59 L 126/81 115/58 L Pulse Oximetry 98 98 99 06/22/18 08:00 06/22/18 12:00 06/22/18 16:00 Temperature 98.4 F 98.4 F 98.2 F Pulse Rate 87 93 H 89 Respiratory Rate 18 20 20 Blood Pressure 125/61 124/67 120/59 L Pulse Oximetry 97 100 96 Intake & Output 06/22/18 06/22/18 06/23/18 06:59 18:59 06:59 Intake Total 240 / 240 1410 / 1410 Output Total 650 / 650 Balance 240 / 240 760 / 760 Weight 92.5 kg 96.5 kg Intake: Oral 240 / 240 1410 / 1410 Output: Urine 650 / 650 Other: # Voids 3 Date of Last Bowel Movement 06/20/18 06/22/18 # Bowel Movements 2 <Piyush Maguire - Last Filed: 06/22/18 19:27> Results - Labs CBC & Chem 7: 06/16/18 03:48 06/22/18 06:07 Labs: Laboratory Results - last 24 hr 06/22/18 06:07 Sodium 139 Potassium 3.9 Chloride 98 Carbon Dioxide 30.4 Anion Gap 11 BUN 34 H Creatinine 5.50 H Estimated GFR 11 L Random Glucose 106 Calcium 9.4 Phosphorus 5.0 H Albumin 3.5 <Martha Calvo - Last Filed: 06/22/18 17:10> - Labs CBC & Chem 7: 06/16/18 03:48 06/22/18 06:07 Labs: Laboratory Results - last 24 hr 06/22/18 06:07 Sodium 139 Potassium 3.9 Chloride 98 Carbon Dioxide 30.4 Anion Gap 11 BUN 34 H Creatinine 5.50 H Estimated GFR 11 L Random Glucose 106 Calcium 9.4 Phosphorus 5.0 H Albumin 3.5 <Piyush Maguire E - Last Filed: 06/22/18 19:27> Assessment and Plan - Plan This is a 53-year-old male who was admitted to the hospital on 05/26/2018 with acute renal failure rhabdomyolysis and is currently stabilized with dialysis 3 times a week according to the record patient has had multiple comorbidities which include diverticulitis diagnosed on CT scan on admission and was treated. Currently patient denies any abdominal pain, no diarrhea no constipation and states medications are assisting him with daily bathroom regimens formed brown stools with no obvious bleeding. Patient also notes no straining with defecation, but does note a history of constipation in the past. Patient has a history of internal hemorrhoids which have give him chronic pain since at least 2015 if not before. Last colonoscopy noted internal hemorrhoids were in a cluster he states. 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 Patient states he has used multiple types of [id number] medicines and has been on rectal HC suppositories 3 times a day with minimal effectiveness. Patient states that his pain meds have been what has kept him more comfortable during this hospital stay. Patient notes EGD around year 2013. Currently denies any nausea vomiting dyspepsia or dysphasia and no obvious hematemesis. Last hemoglobin check was 8., Hepatitis panel nonreactive. Patient is being followed per cardiology for atrial fib and is currently on Plavix. Gastroenterology was consulted to assist with patient's rectal pain and any further recommendations and treatment regimens. Discussed with patient the need for repeat colonoscopy and or sigmoidoscopy when he is stable from a cardiac standpoint but currently patient is not wanting to pursue any type of GI procedures while he is in the hospital. He states that he is finally doing better and hopes to discharge soon and wants to follow-up on an outpatient basis. Rectal pain probably secondary to internal hemorrhoids last evaluated in 2016 in the [place] area per patient's pals specialist. Patient has never been evaluated per rectal surgeon but states that rectal pain is chronic. Currently patient has been on rectal HC suppositories 3 times a day but states still has chronic rectal pain. Diverticulitis, acute and patient states he has had it in the past. Treated and resolved. Currently denies any abdominal pain no diarrhea no constipation. Advised patient against seeds nuts and popcorn after he is discharged. History of alcohol, patient is alert answering simple questions has no obvious tremors for now currently being managed per attending Renal failure currently being treated per nephrology Atrial fib any cardiac disease been treated per cardiology Discussed with patient possibilities of colonoscopy versus sigmoidoscopy versus follow-up with colorectal surgeon. Current scenario is complicated with patient being on Plavix, atrial fib and has been followed per credit rating checker. Patient feels like he would rather not have any GI procedures in the hospital since he seems to be doing better and discharge planning is pending when he is stable. He agrees that he needs to see someone on an outpatient basis but will need to be when cardiology clears him. Discussed [id number] Meds and lidocaine cream but patient states hemorrhoids are internal so lidocaine cream is basically an effective. Noted to patient that [facility] will be glad to follow him on an outpatient basis after he is discharged if he wishes Plan Diet per attending as tolerated Continue rectal HC suppositories 3 times a day as tolerated Currently taking PPI Zofran as tolerated No straining, warm sitz bath's as an outpatient Supportive care Patient was seen per myself and Dr. Maguire, note was written on his behalf <Martha Calvo - Last Filed: 06/22/18 17:10> - Plan Patient seen and examined Agree with above Continue with current supportive care Monitor labs Follow-up with GI post discharge We will sign off <Piyush Maguire - Last Filed: 06/22/18 19:27>
[2018-06-23] MEDS: Oral Hygiene Kit OROPHARYNG SCH ×4 (01:55→15:30)
--- NOTE | 2018-06-23 07:12 | P.PN ---
Subjective Interval history: Follow-up on patient with acute renal failure, rhabdomyolysis. Patient seen and examined. Patient says he is not sure how he is doing. He is frustrated that he was taken down to dialysis and then brought back up without having any dialysis done. He does not understand his treatment plan. He states he is urinating a good amount. He is not sure if the swelling in his legs is better. He is complaining of bilateral foot pain from cracked heels. Physical Exam Vital signs: Vital Signs 06/22/18 08:00 06/22/18 12:00 06/22/18 16:00 Temperature 98.4 F 98.4 F 98.2 F Pulse Rate 87 93 H 89 Respiratory Rate 18 20 20 Blood Pressure 125/61 124/67 120/59 L Pulse Oximetry 97 100 96 06/22/18 20:41 06/23/18 00:00 Temperature 97.7 F 98.2 F Pulse Rate 79 107 H Respiratory Rate 16 18 Blood Pressure 115/55 L 135/65 Pulse Oximetry 97 Intake & Output 06/22/18 06/23/18 06/23/18 18:59 06:59 18:59 Intake Total 1681 / 1681 447 / 447 Output Total 650 / 650 800 / 800 Balance 1031 / 1031 -353 / -353 Weight 96.5 kg 95.7 kg Intake: Oral 1681 / 1681 447 / 447 Output: Urine 650 / 650 800 / 800 Other: Date of Last Bowel Movement 06/22/18 06/22/18 # Bowel Movements 2 Narrative: GENERAL: WDWN male patient, in no acute distress. Awake and alert. Sitting up in bed. SKIN: Warm and dry. +PermCath in right IJ. +dry chapped heels bilaterally. HEENT: Atraumatic. Normocephalic. Pupils equal and round. No scleral icterus. No injection or drainage. No nasal bleeding or discharge. Mucous membranes pink and moist. NECK: Trachea midline. No JVD. CARDIOVASCULAR: Regular rate and rhythm. RESPIRATORY: No accessory muscle use. Clear to auscultation. Breath sounds equal bilaterally. GASTROINTESTINAL: Abdomen soft, non-tender, nondistended. +BS. MUSCULOSKELETAL: Extremities without clubbing or cyanosis. Trace to 1+ lower extremity edema. NEUROLOGICAL: Awake and alert. No obvious cranial nerve deficits. Motor grossly within normal limits. Able to move all extremities spontaneously. Normal speech. PSYCHIATRIC: Calm and cooperative. - Urinary Catheter Management Indwelling Urethral Catheter Cath placed during this visit: yes, but has since been removed by the nurse Reason for continuing: Decision to DC catheter Insertion date: 05/28/18 Insertion time: 13:30 Removal date: 05/29/18 Removal time: 16:15 Results - Labs CBC & Chem 7: 06/23/18 10:55 06/23/18 06:08 Laboratory Results - last 24 hr 06/22/18 06:07 Sodium 139 Potassium 3.9 Chloride 98 Carbon Dioxide 30.4 Anion Gap 11 BUN 34 H Creatinine 5.50 H Estimated GFR 11 L Random Glucose 106 Calcium 9.4 Phosphorus 5.0 H Albumin 3.5 - Procedures 53-year-old male with acute hypoxic and hypercarbic respiratory failure and acute severe metabolic encephalopathy with associated multiorgan failure including renal failure and liver failure. Patient initially required intubation /ICU care; he has since stabilized and transferred to hospitalist service: 06/16: No significant changes to medical plan. Renal Acute renal failure secondary to rhabdomyolysis from statin. No obstruction. Significant proteinuria. Serology negative. Mild CKD at baseline prior to acute injury. Dialysis started 05/27 -Nephrology consulted -Continue dialysis -s/p dialysis 06/16 -monitor urine output -hold Lisinopril, other nephrotoxins Respiratory Acute hypoxic and hypercarbic respiratory failure: Status post intubation and extubation. Echo with EF 50%; suspected failure from ARF - Supplemental oxygen as needed. - Breathing treatments as needed. -Dialysis as below Cardiovascular Elevated troponin Atrial fibrillation Impression: Cardiology consulted. Echo- EF 50%. [id number] 1. Determined anticoagulation risk high for multiple risks -Continue Plavix -Continue to monitor labs/platelet count Statin induced rhabdomyolysis -Ongoing hemodialysis as above. -Continue to trend CK levels. Alcohol dependence: - Off CIWA protocol. - No signs of withdrawal currently Acute liver failure Impression: Downtrending LFT's. Transaminases >1000 05/26 ----> less than 100 . - Follow LFTs. -s/p lactulose (Ammonia <10 06/04) Acute diverticulitis/rectal pain Impression: 05/26 A/P CT with sigmoid diverticulitis. no reported recent symptoms. Cipro/Flagyl stopped -Continue to monitor Rash: Probable drug reaction: Cipro and Flagyl previously discontinued. Benadryl as needed. Continue Zyrtec and Pepcid. Tobacco dependence -Nicotine patch given DVT PPX Heparin 5K U q8hrs Code Status: Full code Discharge Planning: Pending renal improvement/Nephrology recommendations Assessment and Plan - Assessment (1) RADHA (acute kidney injury) Code(s): N17.9 - Acute kidney failure, unspecified Status: Acute (2) Acute renal failure Code(s): N17.9 - Acute kidney failure, unspecified Status: Acute (3) Transaminitis Code(s): R74.0 - Nonspecific elevation of levels of transaminase and lactic acid dehydrogenase [LDH] Status: Acute (4) Alcohol abuse Code(s): F10.10 - Alcohol abuse, uncomplicated Status: Acute (5) Rhabdomyolysis due to statin therapy Code(s): M62.82 - Rhabdomyolysis Status: Acute (6) NSTEMI (non-ST elevated myocardial infarction) Code(s): I21.4 - Non-ST elevation (NSTEMI) myocardial infarction Status: Acute - Plan 53-year-old male with acute hypoxic and hypercarbic respiratory failure and acute severe metabolic encephalopathy with associated multiorgan failure including renal failure and liver failure. Patient initially required intubation /ICU care; he has since stabilized and transferred to hospitalist service: Renal Acute renal failure secondary to rhabdomyolysis from statin. No obstruction. Significant proteinuria. Serology negative. Mild CKD at baseline prior to acute injury. Baseline Cr 1.5-1.6 Dialysis started 05/27 - Nephrology following, appreciate assistance. Continue HD as necessary per Nephrology. Continue fluid restricted diet. IV Bumex discontinued and changed to Bumex 2mg daily. - continue to hold Lisinopril, other nephrotoxins - UOP improved, continue to monitor - monitor kidney function. Cr slightly up to 5.66. Respiratory Acute hypoxic and hypercarbic respiratory failure: Status post intubation and extubation. Echo with EF 50%; suspected failure from ARF - Supplemental oxygen as needed. - Breathing treatments as needed. Cardiovascular Elevated troponin Atrial fibrillation Impression: Cardiology consulted. Echo- EF 50%. [id number] 1. Determined anticoagulation risk high for multiple risks - Continue Plavix - Continue to monitor labs/platelet count as indicated Alcohol dependence: - Off CINE protocol. - No signs of withdrawal currently Acute liver failure Impression: Downtrending LFT's. Transaminases >1000 05/26 ----> less than 100 . LFTs nearly normal - Follow LFTs intermittently. - s/p lactulose (Ammonia <10 06/04) Acute diverticulitis/rectal pain/hemorrhoids Impression: 05/26 A/P CT with sigmoid diverticulitis. no reported recent symptoms. Cipro/Flagyl stopped - complaining of severe/debilitating and progressive rectal pain/spasms secondary to hemorrhoids. Requesting to be resumed on Morphine. Also asking if dose of Mckenney and be increased to q4h. GI consulted, appreciate assistance. Continue rectal HC supp TID. F/U with GI at discharge. - continue with Anusol Rash: Probable drug reaction: Cipro and Flagyl previously discontinued. Benadryl as needed. Continue Zyrtec and Pepcid. Tobacco dependence -Nicotine patch given DVT PPX Heparin sq Code Status: FULL Discussed Condition With: patient, nursing staff Discharge Planning: Discharge pending improvement in renal function and nephrology clearance. (2) Acute renal failure Qualifiers: Acute renal failure type: unspecified Qualified Code(s): N17.9 - Acute kidney failure, unspecified
[2018-06-23] MEDS: Heparin - SQ 10,000 UNITS/ML Vial SQ SCH ×3 (07:17→21:26)
[2018-06-23 07:57] LABS: Calcium 8.9 mg/dL (8.5-10.1); Carbon Dioxide 30.6 meq/L (21.0-32.0); Phosphorus 4.5 mg/dL (2.5-4.9); Potassium 3.6 meq/L (3.5-5.1)
[2018-06-23 07:59] LABS: Total Protein 7.1 g/dL (6.4-8.2)
[2018-06-23] MEDS: Calcium Acetate 667 MG Capsule PO SCH ×3 (08:04→18:14)
[2018-06-23] MEDS: Famotidine 20 MG Tablet PO SCH ×2 (08:05→21:26)
[2018-06-23] MEDS: Senna/Docusate Sodium 8.6/50 MG Tablet PO SCH ×2 (08:05→21:26)
[2018-06-23] MEDS: Chlorhexidine 0.12% Oral Kit 15 ML UDC OROPHARYNG SCH ×2 (08:05→21:25)
[2018-06-23] MEDS: Lactic Acid (Ammonium Lactate) 12% Lotion 225 GM Bottle TOPICAL SCH ×2 (08:05→21:26)
[2018-06-23] MEDS: Hydrocortisone Acetate 25 MG Supp RECTAL SCH ×3 (08:05→18:14)
[2018-06-23] MEDS: Polyethylene Glycol 3350 17 GM Packet PO SCH ×2 (08:05→21:25)
--- NOTE | 2018-06-23 10:08 | P.PNNP ---
Subjective Interval history: patient's urine output has improved. Creatinine is only slightly higher today compared to yesterday. Dialysis held. Lower extremity edema has improved. Physical Exam Vital signs: Vital Signs 06/22/18 12:00 06/22/18 16:00 06/22/18 20:41 Temperature 98.4 F 98.2 F 97.7 F Pulse Rate 93 H 89 79 Respiratory Rate 20 20 16 Blood Pressure 124/67 120/59 L 115/55 L Pulse Oximetry 100 96 06/23/18 00:00 06/23/18 04:00 06/23/18 07:00 Temperature 98.2 F 98 F Pulse Rate 107 H 98 H Respiratory Rate 18 18 12 Blood Pressure 135/65 124/63 Pulse Oximetry 97 97 06/23/18 07:52 Temperature 98.4 F Pulse Rate 89 Respiratory Rate 16 Blood Pressure 113/61 Pulse Oximetry 96 Intake & Output 06/22/18 06/23/18 06/23/18 18:59 06:59 18:59 Intake Total 1681 / 1681 447 / 447 220 / 220 Output Total 650 / 650 800 / 800 Balance 1031 / 1031 -353 / -353 220 / 220 Weight 96.5 kg 95.7 kg Intake: Oral 1681 / 1681 447 / 447 220 / 220 Output: Urine 650 / 650 800 / 800 Other: Date of Last Bowel Movement 06/22/18 06/22/18 06/23/18 # Bowel Movements 2 Narrative: GENERAL: WDWN male patient, in no acute distress. Awake and alert. SKIN: Warm and dry. +PermCath in right IJ. +dry chapped heels bilaterally. HEENT: Atraumatic. Normocephalic. Pupils equal and round. No scleral icterus. No injection or drainage. No nasal bleeding or discharge. Mucous membranes pink and moist. NECK: Trachea midline. No JVD. CARDIOVASCULAR: Regular rate and rhythm. RESPIRATORY: No accessory muscle use. Clear to auscultation. Breath sounds equal bilaterally. GASTROINTESTINAL: Abdomen soft, non-tender, nondistended. +BS. MUSCULOSKELETAL: Extremities without clubbing or cyanosis. 1+ lower extremity NEUROLOGICAL: Awake and alert. No focal deficits. - Urinary Catheter Management Indwelling Urethral Catheter Cath placed during this visit: yes, but has since been removed by the nurse Reason for continuing: Decision to DC catheter Insertion date: 05/28/18 Insertion time: 13:30 Removal date: 05/29/18 Removal time: 16:15 Assessment and Plan - Assessment (1) RADHA (acute kidney injury) Code(s): N17.9 - Acute kidney failure, unspecified Status: Acute Plan: He has underlying CKD, baseline creatinine was 1.5-1.6 earlier this year. RADHA is due to rhabdomyolysis. Dialysis initiated on 05/27. Continue to monitor urine output: it has improved. Avoid nephrotoxic agents. Urine output has improved. Renal function appears to be improving. Dialysis held today. Repeat labs. Reduce Bumex. I expect continued improvement in renal function. (2) ETOH abuse Code(s): F10.10 - Alcohol abuse, uncomplicated Status: Acute Plan: Cessation has been advised.
[2018-06-23 11:23] LABS: Hematocrit 23.5 % (39.0-51.0); Hemoglobin 7.8 gm/dL (13.0-17.0); Mean Corpuscular HGB Conc 33.3 % (32.0-36.0); Mean Corpuscular Hemoglobin 36.8 pg (27.0-34.0); Mean Corpuscular Volume 110.7 fL (80.0-100.0); Mean Platelet Volume 8.2 fL (7.0-11.0); Platelet Count 219 th/mm3 (150-450); Red Blood Count 2.13 mil/mm3 (4.50-5.90); Red Cell Distribution Width 16.4 % (11.6-17.2); White Blood Count 5.7 th/mm3 (4.0-11.0)
--- NOTE | 2018-06-23 14:53 | P.PNCA ---
Subjective Interval history: c/o new onset mild chest tightness Medications and Allergies Active Medications: Active Medications Acetaminophen (Tylenol) 650 mg PO Q4H PRN PRN Reason: Temp > 100.4 Acetaminophen (Tylenol) 650 mg PO UNSCH PRN PRN Reason: SEE LABEL COMMENTS Acetaminophen (Tylenol) 500 mg PO Q6H PRN PRN Reason: PAIN 1-6 Hydrocodone Bitart/Acetaminophen ([place] 7.5/325) 1 tab PO Q6H PRN PRN Reason: PAIN SCALE 6 TO 10 Last Admin: 06/23/18 12:46 Dose: 1 tab Al Hydroxide/Mg Hydroxide (Milk Of Michael Zambrano) 30 ml PO Q12H PRN PRN Reason: Mild Constipation Albuterol (Duoneb Neb (Prn)) 1 ampul NEB Q2HR NEB PRN PRN Reason: WHEEZING Bisacodyl (Dulcolax Supp) 10 mg RECTAL DAILY PRN PRN Reason: if no BM in last 24h Last Admin: 06/10/18 05:49 Dose: 10 mg Bumetanide (Bumex) 2 mg PO DAILY [facility] Calcium Acetate (Phoslo) 667 mg PO TID [facility] Last Admin: 06/23/18 12:45 Dose: 667 mg Cetirizine HCl (Zyrtec) 10 mg PO BID [facility] Last Admin: 06/23/18 08:04 Dose: 10 mg Chlorhexidine Gluconate (Peridex 0.12% Oral Kit) 15 ml OROPHARYNG BID@0800, 2000 [facility] Last Admin: 06/23/18 08:05 Dose: Not Given Clopidogrel Bisulfate (Plavix) 75 mg PO DAILY [facility] Last Admin: 06/23/18 08:04 Dose: 75 mg Diphenhydramine HCl (Benadryl) 25 mg PO Q4H PRN PRN Reason: ITCHING Last Admin: 06/22/18 01:37 Dose: 25 mg Diphenhydramine HCl (Benadryl) 50 mg PO Q6H PRN PRN Reason: ITCHING Last Admin: 06/20/18 20:55 Dose: 50 mg Diphenhydramine HCl (Benadryl Inj) 50 mg IV.PUSH Q6H PRN PRN Reason: ITCHING Last Admin: 06/19/18 15:51 Dose: 50 mg Famotidine (Pepcid) 10 mg PO BID [facility] Last Admin: 06/23/18 08:05 Dose: Not Given Gelatin (Gelfoam 12 Mm/7 Mm Topical) 1 foam TOPICAL PRN PRN PRN Reason: help stop bleeding from site Gentamicin Sulfate (Gentamicin Inj) 20 mg OTHER WITH DIALYSIS PRN PRN Reason: Dwell Gentamycin Lock Last Admin: 06/21/18 09:57 Dose: 20 mg Heparin Sodium (Porcine) (Heparin Inj) 5,000 units SQ Q8HR WEI Last Admin: 06/23/18 13:24 Dose: 5,000 units Heparin Sodium (Porcine) (Heparin Inj) 8,000 units OTHER WITH DIALYSIS PRN PRN Reason: for machine prime Last Admin: 06/04/18 12:39 Dose: 3,500 units Heparin Sodium (Porcine) (Heparin Inj) 1,000 units OTHER WITH DIALYSIS PRN PRN Reason: Dwell Heparin to Fill Catheter Last Admin: 06/21/18 09:56 Dose: 1,000 units Hydrocortisone Acetate (Hemorrhoidal Hc Supp) 25 mg RECTAL TID [facility] Last Admin: 06/23/18 12:46 Dose: 25 mg Hydrocortisone Acetate (Hydrocortisone 1% Cream) 1 applicatio TOPICAL TID PRN PRN Reason: RASH Last Admin: 06/22/18 12:39 Dose: 1 applicatio Albumin Human (Flexbumin 25% Inj) 100 mls @ 60 mls/hr IV.SIG WITH DIALYSIS PRN PRN Reason: hypotension / volume replace Last Infusion: 06/16/18 09:02 Dose: Infused Sodium Chloride (Ns Inj) 1,000 mls @ 0 mls/hr OTHER .Q0M PRN PRN Reason: for prime and rinse back Sodium Chloride (Ns Inj) 1,000 mls @ 200 mls/hr OTHER .Q5H PRN PRN Reason: for dialyzer flush PRN Sodium Chloride (Ns Inj) 1,000 mls @ 0 mls/hr IV.CONT .Q0M PRN PRN Reason: hypotension / volume replace Vasopressin 40 unit/ Dextrose 100 mls @ 6 mls/hr IV.CONT CONT [facility]; Protocol Last Infusion: 06/01/18 19:33 Dose: Infused Lactic Acid (Lac-Hydrin 12% Lotion) 1 applicatio TOPICAL BID [facility] Last Admin: 06/23/18 08:05 Dose: 1 applicatio Lactulose (Lactulose Liq) 30 ml PO BID [facility] Last Admin: 06/23/18 08:04 Dose: 30 ml Naloxone HCl (Narcan Inj) 0.4 mg IV.PUSH UNSCH PRN PRN Reason: SEE LABEL COMMENTS Naloxone HCl (Narcan Inj) 0.4 mg IV.PUSH UNSCH PRN PRN Reason: SEE LABEL COMMENTS Nicotine (Habitrol 14 Mg Patch.24 Hr) 1 patch T-DERMAL DAILY [facility] Last Admin: 06/23/18 08:05 Dose: 1 patch Nitroglycerin (Nitrostat Sl) 0.4 mg SL Q5M PRN PRN Reason: CHEST PAIN Ondansetron HCl (Zofran Inj) 4 mg IV.PUSH Q6H PRN PRN Reason: NAUSEA OR VOMITING Last Admin: 05/30/18 20:46 Dose: 4 mg Ondansetron HCl (Zofran Inj) 4 mg IV.PUSH UNSCH PRN PRN Reason: NAUSEA OR VOMITING Pantoprazole Sodium (Protonix) 40 mg PO DAILY [facility] Last Admin: 06/23/18 08:05 Dose: 40 mg Patch Removal (Remove Old Patch) 1 each T-DERMAL DAILY [facility] Last Admin: 06/23/18 08:05 Dose: 1 each Polyethylene Glycol (Miralax) 17 gm PO BID [facility] Last Admin: 06/23/18 08:05 Dose: 17 gm Senna/Docusate Sodium (Najma-Colace) 1 tab PO BID [facility] Last Admin: 06/23/18 08:05 Dose: 1 tab Sennosides (Senokot) 17.2 mg PO Q12H PRN PRN Reason: Moderate Constipation Sodium Chloride (Ns Flush) 5 ml IV.FLUSH PRN PRN PRN Reason: flush each lumen during HD Sodium Chloride (Ns Flush) 2 ml IV.FLUSH UNSCH PRN PRN Reason: FLUSH AFTER USING IV ACCESS Terbutaline Sulfate (Brethine Inj) 1 mg SQ UNSCH PRN PRN Reason: For Extravasation Thiamine HCl (Vitamin B1) 100 mg PO DAILY [facility] Last Admin: 06/23/18 08:05 Dose: 100 mg Zolpidem Tartrate (Ambien) 5 mg PO HS PRN PRN Reason: INSOMNIA Last Admin: 06/01/18 01:51 Dose: 5 mg Allergies Allergy/AdvReac Type Severity Reaction Status Date / Time [id number] Reductase AdvReac Urinary Verified 06/05/18 16:04 Inhibitor Freq (Inc/Dec) Home Medications Medication Instructions Recorded Confirmed Type atorvastatin 80 mg PO DAILY 04/30/18 05/26/18 History lisinopril 10 mg PO DAILY 04/30/18 05/26/18 History Physical Exam Vital signs: Vital Signs 06/22/18 16:00 06/22/18 20:41 06/23/18 00:00 Temperature 98.2 F 97.7 F 98.2 F Pulse Rate 89 79 107 H Respiratory Rate 20 16 18 Blood Pressure 120/59 L 115/55 L 135/65 Pulse Oximetry 96 97 06/23/18 04:00 06/23/18 07:00 06/23/18 07:52 Temperature 98 F 98.4 F Pulse Rate 98 H 89 Respiratory Rate 18 12 16 Blood Pressure 124/63 113/61 Pulse Oximetry 97 96 Intake & Output 06/22/18 06/23/18 06/23/18 18:59 06:59 18:59 Intake Total 1681 / 1681 447 / 447 220 / 220 Output Total 650 / 650 800 / 800 Balance 1031 / 1031 -353 / -353 220 / 220 Weight 96.5 kg 95.7 kg Intake: Oral 1681 / 1681 447 / 447 220 / 220 Output: Urine 650 / 650 800 / 800 Other: Date of Last Bowel Movement 06/22/18 06/22/18 06/23/18 # Bowel Movements 2 - Urinary Catheter Management Indwelling Urethral Catheter Cath placed during this visit: yes, but has since been removed by the nurse Reason for continuing: Decision to DC catheter Insertion date: 05/28/18 Insertion time: 13:30 Removal date: 05/29/18 Removal time: 16:15 Results 06/23/18 10:55 06/23/18 06:08 Cardiac Enzymes 06/23/18 06/23/18 Range/Units 06:08 10:55 AST 38 H (15-37) U/L Troponin I Less than 0.02 L (0.02-0.05) ng/mL CBC 06/23/18 Range/Units 10:55 WBC 5.7 (4.0-11.0) th/mm3 RBC 2.13 L (4.50-5.90) mil/mm3 Hgb 7.8 L (13.0-17.0) gm/dL Hct 23.5 L (39.0-51.0) % Plt Count 219 (150-450) th/mm3 Comprehensive Metabolic Panel 06/22/18 06/23/18 Range/Units 06:07 06:08 Sodium 139 139 (136-145) meq/L Potassium 3.9 3.6 (3.5-5.1) meq/L Chloride 98 98 (98-107) meq/L Carbon Dioxide 30.4 30.6 (21.0-32.0) meq/L BUN 34 H 36 H (7-18) mg/dL Creatinine 5.50 H 5.66 H (0.60-1.30) mg/dL Calcium 9.4 8.9 (8.5-10.1) mg/dL Direct Bilirubin 0.5 H (0.0-0.2) mg/dL Indirect Bilirubin 0.1 (0.0-0.8) mg/dL AST 38 H (15-37) U/L ALT 33 (12-78) U/L Alkaline Phosphatase 111 (45-117) U/L Total Protein 7.1 (6.4-8.2) g/dL Albumin 3.5 3.0 L (3.4-5.0) g/dL Intake and Output 06/22/18 06/23/18 06/23/18 22:59 06:59 14:59 Intake Total 1221 / 1221 447 / 447 220 / 220 Output Total 650 / 650 800 / 800 Balance 571 / 571 -353 / -353 220 / 220 Intake: Oral 1221 / 1221 447 / 447 220 / 220 Output: Urine 650 / 650 800 / 800 Other: Date of Last Bowel Movement 06/22/18 06/23/18 # Bowel Movements 2 Weight 96.5 kg 95.7 kg Assessment and Plan - Assessment (1) Thrombocytopenia Code(s): D69.6 - Thrombocytopenia, unspecified Status: Acute (2) Anemia Code(s): D64.9 - Anemia, unspecified Status: Acute (3) Leukemia Code(s): C95.90 - Leukemia, unspecified not having achieved remission Status: Acute (4) NSTEMI (non-ST elevated myocardial infarction) Code(s): I21.4 - Non-ST elevation (NSTEMI) myocardial infarction Status: Acute (5) Tobacco abuse Code(s): Z72.0 - Tobacco use Status: Acute (6) RADHA (acute kidney injury) Code(s): N17.9 - Acute kidney failure, unspecified Status: Acute (7) ETOH abuse Code(s): F10.10 - Alcohol abuse, uncomplicated Status: Acute (8) Rectal pain Code(s): K62.89 - Other specified diseases of anus and rectum Status: Deleted (9) Metabolic acidosis Code(s): E87.2 - Acidosis Status: Acute (10) Diverticulitis Code(s): K57.92 - Diverticulitis of intestine, part unspecified, without perforation or abscess without bleeding Status: Acute (11) Acute renal failure Code(s): N17.9 - Acute kidney failure, unspecified Status: Acute (12) Transaminitis Code(s): R74.0 - Nonspecific elevation of levels of transaminase and lactic acid dehydrogenase [LDH] Status: Acute (13) Alcohol abuse Code(s): F10.10 - Alcohol abuse, uncomplicated Status: Acute - Plan 1.) NSTEMI - suspect trop elevation due to arf which appears to be due to rhabdomyolysis, he is assymptomatic; 06/23/18, recheck trop due to new onset chest tightness 2.) Afib - 2d echo ef=50%, [id number] score=1, male gender, ac held due to unstable platelet count, hgb and liver function, continue to f/u trends in lfts , hgb, plt ct; rash started @ time aspirin 81 mg qd started 06/01/18, will dc aspirin and start plavix 75 mg qd, 06/05/18, no improvement in rash, i explained to patient that if due to aspirin may take several days for plasma levels of aspirin to decrease and to see improvement if rash is due to aspirin, ; not good candidate for ac with noac or coumadin due to alcohol abuse, liver failure , fall risk and unstable hgb and platelet count 3.) Respiratory failure - ef=50% on echo, assymptomatic 05/27/18, possibly due to volume overload from arf, improved with dialysis 4.) Rash - improved (11) Acute renal failure Qualifiers: Acute renal failure type: unspecified Qualified Code(s): N17.9 - Acute kidney failure, unspecified
[2018-06-24] MEDS: Oral Hygiene Kit OROPHARYNG SCH ×4 (00:50→15:29)
[2018-06-24] MEDS: Heparin - SQ 10,000 UNITS/ML Vial SQ SCH ×3 (06:24→23:36)
--- NOTE | 2018-06-24 07:15 | P.PN ---
Subjective Interval history: Follow-up on patient with acute renal failure, rhabdomyolysis. Patient seen and examined. Patient is standing up in his room making sandwiches with grape jelly and saltine crackers. He says he still has swelling in his legs, in the right more so than the left. He denies any fever or chills. He denies any chest pain or dyspnea. He denies any nausea, vomiting or abdominal pain. He says he would like to stay until Thursday to make sure his kidneys are doing ok. He says he is urinating well. Physical Exam Vital signs: Vital Signs 06/23/18 07:52 06/23/18 12:00 06/23/18 15:42 Temperature 98.4 F 98.5 F Pulse Rate 89 86 Respiratory Rate 16 17 12 Blood Pressure 113/61 111/68 Pulse Oximetry 96 97 06/23/18 16:00 06/23/18 20:00 06/24/18 00:00 Temperature 99.2 F 98.2 F 98.3 F Pulse Rate 89 79 78 Respiratory Rate 18 16 12 Blood Pressure 144/83 H 127/58 L 150/73 H Pulse Oximetry 97 96 98 06/24/18 04:00 Temperature 98.0 F Pulse Rate 79 Respiratory Rate 12 Blood Pressure 134/80 Pulse Oximetry Intake & Output 06/23/18 06/24/18 06/24/18 18:59 06:59 18:59 Intake Total 1320 / 1320 200 / 200 Output Total 875 / 875 775 / 775 Balance 445 / 445 -575 / -575 Intake: Oral 1320 / 1320 200 / 200 Output: Urine 875 / 875 775 / 775 Other: Date of Last Bowel Movement 06/23/18 06/23/18 Narrative: GENERAL: WDWN male patient, in no acute distress. Awake and alert. Standing up in his room making sandwiches with crackers and jelly. SKIN: Warm and dry. +PermCath in right IJ. HEENT: Atraumatic. Normocephalic. Pupils equal and round. No scleral icterus. No injection or drainage. No nasal bleeding or discharge. Mucous membranes pink and moist. NECK: Trachea midline. No JVD. CARDIOVASCULAR: Regular rate and rhythm. RESPIRATORY: No accessory muscle use. Clear to auscultation. Breath sounds equal bilaterally. GASTROINTESTINAL: Abdomen soft, non-tender, nondistended. +BS. MUSCULOSKELETAL: Extremities without clubbing or cyanosis. 1-2+ pitting lower extremity edema R>L. +tenderness to palpation right calf. NEUROLOGICAL: Awake and alert. No obvious cranial nerve deficits. Motor grossly within normal limits. Able to move all extremities spontaneously. Normal speech. PSYCHIATRIC: Calm and cooperative. - Urinary Catheter Management Indwelling Urethral Catheter Cath placed during this visit: yes, but has since been removed by the nurse Reason for continuing: Decision to DC catheter Insertion date: 05/28/18 Insertion time: 13:30 Removal date: 05/29/18 Removal time: 16:15 Results - Labs CBC & Chem 7: 06/23/18 10:55 06/24/18 06:54 Laboratory Results - last 24 hr 06/23/18 06/23/18 06/23/18 06:08 10:55 10:55 WBC 5.7 RBC 2.13 L Hgb 7.8 L Hct 23.5 L MCV 110.7 H MCH 36.8 H MCHC 33.3 RDW 16.4 Plt Count 219 MPV 8.2 Sodium 139 Potassium 3.6 Chloride 98 Carbon Dioxide 30.6 Anion Gap 10 BUN 36 H Creatinine 5.66 H Estimated GFR 11 L Random Glucose 106 Calcium 8.9 Phosphorus 4.5 Total Bilirubin 0.6 Direct Bilirubin 0.5 H Indirect Bilirubin 0.1 AST 38 H ALT 33 Alkaline Phosphatase 111 Troponin I Total Protein 7.1 Albumin 3.0 L Vitamin B12 829 06/23/18 06/23/18 10:55 18:47 WBC RBC Hgb Hct MCV MCH MCHC RDW Plt Count MPV Sodium Potassium Chloride Carbon Dioxide Anion Gap BUN Creatinine Estimated GFR Random Glucose Calcium Phosphorus Total Bilirubin Direct Bilirubin Indirect Bilirubin AST ALT Alkaline Phosphatase Troponin I Less than 0.02 L Less than 0.02 L Total Protein Albumin Vitamin B12 - Procedures 53-year-old male with acute hypoxic and hypercarbic respiratory failure and acute severe metabolic encephalopathy with associated multiorgan failure including renal failure and liver failure. Patient initially required intubation /ICU care; he has since stabilized and transferred to hospitalist service: 06/16: No significant changes to medical plan. Renal Acute renal failure secondary to rhabdomyolysis from statin. No obstruction. Significant proteinuria. Serology negative. Mild CKD at baseline prior to acute injury. Dialysis started 05/27 -Nephrology consulted -Continue dialysis -s/p dialysis 06/16 -monitor urine output -hold Lisinopril, other nephrotoxins Respiratory Acute hypoxic and hypercarbic respiratory failure: Status post intubation and extubation. Echo with EF 50%; suspected failure from ARF - Supplemental oxygen as needed. - Breathing treatments as needed. -Dialysis as below Cardiovascular Elevated troponin Atrial fibrillation Impression: Cardiology consulted. Echo- EF 50%. [id number] 1. Determined anticoagulation risk high for multiple risks -Continue Plavix -Continue to monitor labs/platelet count Statin induced rhabdomyolysis -Ongoing hemodialysis as above. -Continue to trend CK levels. Alcohol dependence: - Off CIWA protocol. - No signs of withdrawal currently Acute liver failure Impression: Downtrending LFT's. Transaminases >1000 05/26 ----> less than 100 . - Follow LFTs. -s/p lactulose (Ammonia <10 06/04) Acute diverticulitis/rectal pain Impression: 05/26 A/P CT with sigmoid diverticulitis. no reported recent symptoms. Cipro/Flagyl stopped -Continue to monitor Rash: Probable drug reaction: Cipro and Flagyl previously discontinued. Benadryl as needed. Continue Zyrtec and Pepcid. Tobacco dependence -Nicotine patch given DVT PPX Heparin 5K U q8hrs Code Status: Full code Discharge Planning: Pending renal improvement/Nephrology recommendations Assessment and Plan - Assessment (1) RADHA (acute kidney injury) Code(s): N17.9 - Acute kidney failure, unspecified Status: Acute (2) Acute renal failure Code(s): N17.9 - Acute kidney failure, unspecified Status: Acute (3) Transaminitis Code(s): R74.0 - Nonspecific elevation of levels of transaminase and lactic acid dehydrogenase [LDH] Status: Acute (4) Alcohol abuse Code(s): F10.10 - Alcohol abuse, uncomplicated Status: Acute (5) Rhabdomyolysis due to statin therapy Code(s): M62.82 - Rhabdomyolysis Status: Acute (6) NSTEMI (non-ST elevated myocardial infarction) Code(s): I21.4 - Non-ST elevation (NSTEMI) myocardial infarction Status: Acute - Plan 53-year-old male with acute hypoxic and hypercarbic respiratory failure and acute severe metabolic encephalopathy with associated multiorgan failure including renal failure and liver failure. Patient initially required intubation /ICU care; he has since stabilized and transferred to hospitalist service: Renal Acute renal failure secondary to rhabdomyolysis from statin. No obstruction. Significant proteinuria. Serology negative. Mild CKD at baseline prior to acute injury. Baseline Cr 1.5-1.6 Dialysis started 05/27 Patient is non oliguric - Nephrology following, appreciate assistance. Continue HD as necessary per Nephrology. Continue fluid restricted diet. 06/24 IV Bumex discontinued and changed to Bumex 2mg daily. Kidney fxn improving. Plans to remove PermCath. - continue to hold Lisinopril, other nephrotoxins - UOP improved, continue to monitor - monitor kidney function. Cr improved some today. Respiratory Acute hypoxic and hypercarbic respiratory failure: Status post intubation and extubation. Echo with EF 50%; suspected failure from ARF - Supplemental oxygen as needed. - Breathing treatments as needed. Cardiovascular Elevated troponin Atrial fibrillation Impression: Cardiology consulted. Echo- EF 50%. [id number] 1. Determined anticoagulation risk high for multiple risks - Continue Plavix - Continue to monitor labs/platelet count as indicated -06/24 patient complained of episode of chest tightness yesterday late afternoon. Secondary to anxiety regarding upcoming discharge. Troponin negative x2. Patient has no complaints of chest pain today. Alcohol dependence: - Off CIWA protocol. - No signs of withdrawal currently Acute liver failure Impression: Downtrending LFT's. Transaminases >1000 05/26 ----> less than 100 . LFTs nearly normal - Follow LFTs intermittently. - s/p lactulose (Ammonia <10 06/04) Acute diverticulitis/rectal pain/hemorrhoids Impression: 05/26 A/P CT with sigmoid diverticulitis. no reported recent symptoms. Cipro/Flagyl stopped - complaining of severe/debilitating and progressive rectal pain/spasms secondary to hemorrhoids. Requesting to be resumed on Morphine. Also asking if dose of [place] and be increased to q4h. GI consulted, appreciate assistance. Continue rectal HC supp TID. F/U with GI at discharge. - continue with Anusol Rash: Probable drug reaction: Cipro and Flagyl previously discontinued. Benadryl as needed. Continue Zyrtec and Pepcid. BLE edema, tenderness to palpation RLE calf -will obtain BLE doppler US to r/o DVT Tobacco dependence -Nicotine patch given DVT PPX Heparin sq Code Status: FULL Discussed Condition With: patient, nursing staff, Dr. Velazquez Discharge Planning: Discharge pending improvement in renal function and nephrology clearance. Possible discharge in the next 24-48 hours. (2) Acute renal failure Qualifiers: Acute renal failure type: unspecified Qualified Code(s): N17.9 - Acute kidney failure, unspecified
[2018-06-24] MEDS: Chlorhexidine 0.12% Oral Kit 15 ML UDC OROPHARYNG SCH ×2 (07:28→23:35)
[2018-06-24 07:37] LABS: Albumin 3.2 g/dL (3.4-5.0); Carbon Dioxide 29.3 meq/L (21.0-32.0); Phosphorus 5.1 mg/dL (2.5-4.9); Potassium 3.8 meq/L (3.5-5.1)
[2018-06-24] MEDS: Polyethylene Glycol 3350 17 GM Packet PO SCH ×2 (08:02→23:34)
[2018-06-24] MEDS: Hydrocortisone Acetate 25 MG Supp RECTAL SCH ×3 (08:02→18:35)
[2018-06-24] MEDS: Senna/Docusate Sodium 8.6/50 MG Tablet PO SCH ×2 (08:03→23:35)
[2018-06-24] MEDS: Famotidine 20 MG Tablet PO SCH ×2 (08:03→23:35)
[2018-06-24] MEDS: Calcium Acetate 667 MG Capsule PO SCH ×3 (08:03→18:35)
[2018-06-24] MEDS: Lactic Acid (Ammonium Lactate) 12% Lotion 225 GM Bottle TOPICAL SCH ×2 (08:03→23:35)
--- NOTE | 2018-06-24 12:35 | P.PNNP ---
Subjective Interval history: Non oliguric. Creatinine is slightly better. No need for dialysis. Physical Exam Vital signs: Vital Signs 06/23/18 15:42 06/23/18 16:00 06/23/18 20:00 Temperature 99.2 F 98.2 F Pulse Rate 89 79 Respiratory Rate 12 18 16 Blood Pressure 144/83 H 127/58 L Pulse Oximetry 97 96 06/24/18 00:00 06/24/18 04:00 06/24/18 07:00 Temperature 98.3 F 98.0 F Pulse Rate 78 79 Respiratory Rate 12 12 12 Blood Pressure 150/73 H 134/80 Pulse Oximetry 98 06/24/18 08:00 Temperature 98.2 F Pulse Rate 96 H Respiratory Rate 17 Blood Pressure 141/77 H Pulse Oximetry 99 Intake & Output 06/23/18 06/24/18 06/24/18 18:59 06:59 18:59 Intake Total 1320 / 1320 200 / 200 Output Total 875 / 875 775 / 775 Balance 445 / 445 -575 / -575 Intake: Oral 1320 / 1320 200 / 200 Output: Urine 875 / 875 775 / 775 Other: Date of Last Bowel Movement 06/23/18 06/23/18 06/23/18 Narrative: GENERAL: WDWN male patient, in no acute distress. Awake and alert. Sitting up in bed. SKIN: Warm and dry. +PermCath in right IJ. +dry chapped heels bilaterally. HEENT: Atraumatic. Normocephalic. Pupils equal and round. No scleral icterus. No injection or drainage. No nasal bleeding or discharge. Mucous membranes pink and moist. NECK: Trachea midline. No JVD. CARDIOVASCULAR: Regular rate and rhythm. RESPIRATORY: No accessory muscle use. Clear to auscultation. Breath sounds equal bilaterally. GASTROINTESTINAL: Abdomen soft, non-tender, nondistended. +BS. MUSCULOSKELETAL: Extremities without clubbing or cyanosis. Trace to 1+ lower extremity edema. NEUROLOGICAL: Awake and alert. No obvious cranial nerve deficits. Motor grossly within normal limits. Able to move all extremities spontaneously. Normal speech. PSYCHIATRIC: Calm and cooperative. - Urinary Catheter Management Indwelling Urethral Catheter Cath placed during this visit: yes, but has since been removed by the nurse Reason for continuing: Decision to DC catheter Insertion date: 05/28/18 Insertion time: 13:30 Removal date: 05/29/18 Removal time: 16:15 Assessment and Plan - Assessment (1) RADHA (acute kidney injury) Code(s): N17.9 - Acute kidney failure, unspecified Status: Acute Plan: He has underlying CKD, baseline creatinine was 1.5-1.6 earlier this year. RADHA is due to rhabdomyolysis. Dialysis initiated on 05/27. Avoid nephrotoxic agents. Urine output has improved. Renal function appears to be improving. No need for dialysis. Will have PermCath removed. On Bumex once daily. I expect continued improvement in renal function. He can be discharged tomorrow if creatinine is stable/better. (2) ETOH abuse Code(s): F10.10 - Alcohol abuse, uncomplicated Status: Acute Plan: Cessation has been advised.
--- NOTE | 2018-06-24 15:22 | US ---
EXAM DATE: 06/24/2018 12:00 AM EDT AGE/SEX: 53 years / Male INDICATIONS: Bilateral leg swelling. CLINICAL DATA: This is the patient's initial encounter. Patient reports that signs and symptoms have been present for 2 weeks and indicates a pain score of 4/10. MEDICAL/SURGICAL HISTORY: Hypertension. Alcohol abuse. Diverticulosis. Enlarged prostate. Hairy cell leukemia. Hemorrhoids. Sleep apnea. . Hernia repair. COMPARISON: No prior exams available for comparison. TECHNIQUE: Venous ultrasound of both lower extremities was performed from the inguinal ligament to t he proximal calf. Real-time, color Doppler and spectral tracing, compression and augmentation techni ques were used. FINDINGS: Right Leg: Normal compression of the deep venous system from the inguinal region to the proximal cordelia f. No echogenic clot is seen. Normal response of the venous system to augmentation and respiration. Left Leg: Normal compression of the deep venous system from the inguinal region to the proximal calf . No echogenic clot is seen. Normal response of the venous system to augmentation and respiration. Other: Prominent fatty replaced lymph node in the right groin. CONCLUSION: 1. Negative examination with no evidence of deep venous thrombosis. 2. Prominent fatty replaced lymph node in the right groin. Electronically signed by: Dipesh Caceres MD 06/24/2018 3:21 PM EDT
--- NOTE | 2018-06-24 15:43 | ECG ---
Date Performed: 06/23/2018 Time Performed: 16:27:53 PTAGE: 53 years EKG: ATRIAL FIBRILLATION INCOMPLETE RIGHT BUNDLE BRANCH BLOCK POSSIBLE RIGHT VENTRICULAR HYPERTR OPHY POSSIBLE ANTERIOR MYOCARDIAL INFARCTION , PROBABLY OLD ABNORMAL ECG PREVIOUS TRACING : 06/23/2018 11.56 Since the previous tracing, no significant change noted DOCTOR: Kinsey Watson Interpretating Date/Time 06/24/2018 15:42:44
--- NOTE | 2018-06-24 15:43 | ECG ---
Date Performed: 06/23/2018 Time Performed: 11:56:57 PTAGE: 53 years EKG: ATRIAL FIBRILLATION LOW QRS VOLTAGE IN PRECORDIAL LEADS INCOMPLETE RIGHT BUNDLE BRANCH BLOC K ABNORMAL RHYTHM ECG PREVIOUS TRACING : 05/28/2018 12.26 Since the previous tracing, no significant change noted DOCTOR: Kinsey Watson Interpretating Date/Time 06/24/2018 15:42:34
--- NOTE | 2018-06-24 18:30 | P.PNCA ---
Subjective Interval history: chest pain resolved, he is assymptomatic Medications and Allergies Active Medications: Active Medications Acetaminophen (Tylenol) 650 mg PO Q4H PRN PRN Reason: Temp > 100.4 Acetaminophen (Tylenol) 650 mg PO UNSCH PRN PRN Reason: SEE LABEL COMMENTS Acetaminophen (Tylenol) 500 mg PO Q6H PRN PRN Reason: PAIN 1-6 Hydrocodone Bitart/Acetaminophen ([place] 7.5/325) 1 tab PO Q6H PRN PRN Reason: PAIN SCALE 6 TO 10 Last Admin: 06/24/18 12:28 Dose: 1 tab Al Hydroxide/Mg Hydroxide (Milk Of Michael Zambrano) 30 ml PO Q12H PRN PRN Reason: Mild Constipation Albuterol (Duoneb Neb (Prn)) 1 ampul NEB Q2HR NEB PRN PRN Reason: WHEEZING Bisacodyl (Dulcolax Supp) 10 mg RECTAL DAILY PRN PRN Reason: if no BM in last 24h Last Admin: 06/10/18 05:49 Dose: 10 mg Bumetanide (Bumex) 2 mg PO DAILY [facility] Last Admin: 06/24/18 08:03 Dose: 2 mg Calcium Acetate (Phoslo) 667 mg PO TID [facility] Last Admin: 06/24/18 12:28 Dose: 667 mg Cetirizine HCl (Zyrtec) 10 mg PO BID [facility] Last Admin: 06/24/18 08:03 Dose: 10 mg Chlorhexidine Gluconate (Peridex 0.12% Oral Kit) 15 ml OROPHARYNG BID@0800, 2000 [facility] Last Admin: 06/24/18 07:28 Dose: Not Given Clopidogrel Bisulfate (Plavix) 75 mg PO DAILY [facility] Last Admin: 06/24/18 08:03 Dose: 75 mg Diphenhydramine HCl (Benadryl) 25 mg PO Q4H PRN PRN Reason: ITCHING Last Admin: 06/22/18 01:37 Dose: 25 mg Diphenhydramine HCl (Benadryl) 50 mg PO Q6H PRN PRN Reason: ITCHING Last Admin: 06/20/18 20:55 Dose: 50 mg Diphenhydramine HCl (Benadryl Inj) 50 mg IV.PUSH Q6H PRN PRN Reason: ITCHING Last Admin: 06/19/18 15:51 Dose: 50 mg Famotidine (Pepcid) 10 mg PO BID [facility] Last Admin: 06/24/18 08:03 Dose: Not Given Gelatin (Gelfoam 12 Mm/7 Mm Topical) 1 foam TOPICAL PRN PRN PRN Reason: help stop bleeding from site Gentamicin Sulfate (Gentamicin Inj) 20 mg OTHER WITH DIALYSIS PRN PRN Reason: Dwell Gentamycin Lock Last Admin: 06/21/18 09:57 Dose: 20 mg Heparin Sodium (Porcine) (Heparin Inj) 5,000 units SQ Q8HR WEI Last Admin: 06/24/18 13:40 Dose: 5,000 units Heparin Sodium (Porcine) (Heparin Inj) 8,000 units OTHER WITH DIALYSIS PRN PRN Reason: for machine prime Last Admin: 06/04/18 12:39 Dose: 3,500 units Heparin Sodium (Porcine) (Heparin Inj) 1,000 units OTHER WITH DIALYSIS PRN PRN Reason: Dwell Heparin to Fill Catheter Last Admin: 06/21/18 09:56 Dose: 1,000 units Hydrocortisone Acetate (Hemorrhoidal Hc Supp) 25 mg RECTAL TID [facility] Last Admin: 06/24/18 12:28 Dose: 25 mg Hydrocortisone Acetate (Hydrocortisone 1% Cream) 1 applicatio TOPICAL TID PRN PRN Reason: RASH Last Admin: 06/22/18 12:39 Dose: 1 applicatio Albumin Human (Flexbumin 25% Inj) 100 mls @ 60 mls/hr IV.SIG WITH DIALYSIS PRN PRN Reason: hypotension / volume replace Last Infusion: 06/16/18 09:02 Dose: Infused Sodium Chloride (Ns Inj) 1,000 mls @ 0 mls/hr OTHER .Q0M PRN PRN Reason: for prime and rinse back Sodium Chloride (Ns Inj) 1,000 mls @ 200 mls/hr OTHER .Q5H PRN PRN Reason: for dialyzer flush PRN Sodium Chloride (Ns Inj) 1,000 mls @ 0 mls/hr IV.CONT .Q0M PRN PRN Reason: hypotension / volume replace Vasopressin 40 unit/ Dextrose 100 mls @ 6 mls/hr IV.CONT CONT [facility]; Protocol Last Infusion: 06/01/18 19:33 Dose: Infused Lactic Acid (Lac-Hydrin 12% Lotion) 1 applicatio TOPICAL BID [facility] Last Admin: 06/24/18 08:03 Dose: 1 applicatio Lactulose (Lactulose Liq) 30 ml PO BID [facility] Last Admin: 06/24/18 08:03 Dose: 30 ml Naloxone HCl (Narcan Inj) 0.4 mg IV.PUSH UNSCH PRN PRN Reason: SEE LABEL COMMENTS Naloxone HCl (Narcan Inj) 0.4 mg IV.PUSH UNSCH PRN PRN Reason: SEE LABEL COMMENTS Nicotine (Habitrol 14 Mg Patch.24 Hr) 1 patch T-DERMAL DAILY [facility] Last Admin: 06/24/18 08:02 Dose: 1 patch Nitroglycerin (Nitrostat Sl) 0.4 mg SL Q5M PRN PRN Reason: CHEST PAIN Ondansetron HCl (Zofran Inj) 4 mg IV.PUSH Q6H PRN PRN Reason: NAUSEA OR VOMITING Last Admin: 05/30/18 20:46 Dose: 4 mg Ondansetron HCl (Zofran Inj) 4 mg IV.PUSH UNSCH PRN PRN Reason: NAUSEA OR VOMITING Pantoprazole Sodium (Protonix) 40 mg PO DAILY [facility] Last Admin: 06/24/18 08:03 Dose: 40 mg Patch Removal (Remove Old Patch) 1 each T-DERMAL DAILY [facility] Last Admin: 06/24/18 08:03 Dose: 1 each Polyethylene Glycol (Miralax) 17 gm PO BID [facility] Last Admin: 06/24/18 08:02 Dose: 17 gm Senna/Docusate Sodium (Najma-Colace) 1 tab PO BID [facility] Last Admin: 06/24/18 08:03 Dose: 1 tab Sennosides (Senokot) 17.2 mg PO Q12H PRN PRN Reason: Moderate Constipation Sodium Chloride (Ns Flush) 5 ml IV.FLUSH PRN PRN PRN Reason: flush each lumen during HD Sodium Chloride (Ns Flush) 2 ml IV.FLUSH UNSCH PRN PRN Reason: FLUSH AFTER USING IV ACCESS Terbutaline Sulfate (Brethine Inj) 1 mg SQ UNSCH PRN PRN Reason: For Extravasation Thiamine HCl (Vitamin B1) 100 mg PO DAILY [facility] Last Admin: 06/24/18 08:03 Dose: 100 mg Zolpidem Tartrate (Ambien) 5 mg PO HS PRN PRN Reason: INSOMNIA Last Admin: 06/01/18 01:51 Dose: 5 mg Allergies Allergy/AdvReac Type Severity Reaction Status Date / Time [id number] Reductase AdvReac Urinary Verified 06/05/18 16:04 Inhibitor Freq (Inc/Dec) Home Medications Medication Instructions Recorded Confirmed Type atorvastatin 80 mg PO DAILY 04/30/18 05/26/18 History lisinopril 10 mg PO DAILY 04/30/18 05/26/18 History Physical Exam Vital signs: Vital Signs 06/23/18 20:00 06/24/18 00:00 06/24/18 04:00 Temperature 98.2 F 98.3 F 98.0 F Pulse Rate 79 78 79 Respiratory Rate 16 12 12 Blood Pressure 127/58 L 150/73 H 134/80 Pulse Oximetry 96 98 06/24/18 07:00 06/24/18 08:00 06/24/18 12:00 Temperature 98.2 F 98.4 F Pulse Rate 96 H 97 H Respiratory Rate 12 17 15 Blood Pressure 141/77 H 158/73 H Pulse Oximetry 99 99 06/24/18 16:00 06/24/18 17:25 Temperature 98.3 F Pulse Rate 86 92 H Respiratory Rate 16 Blood Pressure 136/68 Pulse Oximetry 96 Intake & Output 06/23/18 06/24/18 06/24/18 18:59 06:59 18:59 Intake Total 1320 / 1320 200 / 200 920 / 920 Output Total 875 / 875 775 / 775 1250 / 1250 Balance 445 / 445 -575 / -575 -330 / -330 Intake: Oral 1320 / 1320 200 / 200 920 / 920 Output: Urine 875 / 875 775 / 775 1250 / 1250 Other: Date of Last Bowel Movement 06/23/18 06/23/18 06/23/18 - Urinary Catheter Management Indwelling Urethral Catheter Cath placed during this visit: yes, but has since been removed by the nurse Reason for continuing: Decision to DC catheter Insertion date: 05/28/18 Insertion time: 13:30 Removal date: 05/29/18 Removal time: 16:15 Results 06/23/18 10:55 06/24/18 06:54 Cardiac Enzymes 06/23/18 06/23/18 06/23/18 Range/Units 06:08 10:55 18:47 AST 38 H (15-37) U/L Troponin I Less than 0.02 L Less than 0.02 L (0.02-0.05) ng/mL CBC 06/23/18 Range/Units 10:55 WBC 5.7 (4.0-11.0) th/mm3 RBC 2.13 L (4.50-5.90) mil/mm3 Hgb 7.8 L (13.0-17.0) gm/dL Hct 23.5 L (39.0-51.0) % Plt Count 219 (150-450) th/mm3 Comprehensive Metabolic Panel 06/23/18 06/24/18 Range/Units 06:08 06:54 Sodium 139 140 (136-145) meq/L Potassium 3.6 3.8 (3.5-5.1) meq/L Chloride 98 98 (98-107) meq/L Carbon Dioxide 30.6 29.3 (21.0-32.0) meq/L BUN 36 H 40 H (7-18) mg/dL Creatinine 5.66 H 5.59 H (0.60-1.30) mg/dL Calcium 8.9 9.0 (8.5-10.1) mg/dL Direct Bilirubin 0.5 H (0.0-0.2) mg/dL Indirect Bilirubin 0.1 (0.0-0.8) mg/dL AST 38 H (15-37) U/L ALT 33 (12-78) U/L Alkaline Phosphatase 111 (45-117) U/L Total Protein 7.1 (6.4-8.2) g/dL Albumin 3.0 L 3.2 L (3.4-5.0) g/dL Intake and Output 06/24/18 06/24/18 06/24/18 06:59 14:59 22:59 Intake Total 200 / 200 920 / 920 Output Total 775 / 775 1250 / 1250 Balance -575 / -575 -330 / -330 Intake: Oral 200 / 200 920 / 920 Output: Urine 775 / 775 1250 / 1250 Other: Date of Last Bowel Movement 06/23/18 - Imaging and Cardiology Imaging: Impressions Venous Doppler Study 06/24/18 00:00 CONCLUSION: 1. Negative examination with no evidence of deep venous thrombosis. 2. Prominent fatty replaced lymph node in the right groin. Assessment and Plan - Assessment (1) Thrombocytopenia Code(s): D69.6 - Thrombocytopenia, unspecified Status: Acute (2) Anemia Code(s): D64.9 - Anemia, unspecified Status: Acute (3) Leukemia Code(s): C95.90 - Leukemia, unspecified not having achieved remission Status: Acute (4) NSTEMI (non-ST elevated myocardial infarction) Code(s): I21.4 - Non-ST elevation (NSTEMI) myocardial infarction Status: Acute (5) Tobacco abuse Code(s): Z72.0 - Tobacco use Status: Acute (6) RADHA (acute kidney injury) Code(s): N17.9 - Acute kidney failure, unspecified Status: Acute (7) ETOH abuse Code(s): F10.10 - Alcohol abuse, uncomplicated Status: Acute (8) Rectal pain Code(s): K62.89 - Other specified diseases of anus and rectum Status: Deleted (9) Metabolic acidosis Code(s): E87.2 - Acidosis Status: Acute (10) Diverticulitis Code(s): K57.92 - Diverticulitis of intestine, part unspecified, without perforation or abscess without bleeding Status: Acute (11) Acute renal failure Code(s): N17.9 - Acute kidney failure, unspecified Status: Acute (12) Transaminitis Code(s): R74.0 - Nonspecific elevation of levels of transaminase and lactic acid dehydrogenase [LDH] Status: Acute (13) Alcohol abuse Code(s): F10.10 - Alcohol abuse, uncomplicated Status: Acute - Plan 1.) NSTEMI - suspect trop elevation due to arf which appears to be due to rhabdomyolysis, plan plain treadmill test 06/25/18 due to new onset chest tightness 2.) Afib - 2d echo ef=50%, [id number] score=1, male gender, ac held due to unstable platelet count, hgb and liver function, continue to f/u trends in lfts , hgb, plt ct; rash started @ time aspirin 81 mg qd started 06/01/18, will dc aspirin and start plavix 75 mg qd, 06/05/18, no improvement in rash, i explained to patient that if due to aspirin may take several days for plasma levels of aspirin to decrease and to see improvement if rash is due to aspirin, ; not good candidate for ac with noac or coumadin due to alcohol abuse, liver failure , fall risk and unstable hgb and platelet count 3.) Respiratory failure - ef=50% on echo, assymptomatic 05/27/18, possibly due to volume overload from arf, improved with dialysis 4.) Rash - improved (11) Acute renal failure Qualifiers: Acute renal failure type: unspecified Qualified Code(s): N17.9 - Acute kidney failure, unspecified
[2018-06-25] MEDS: Heparin - SQ 10,000 UNITS/ML Vial SQ SCH ×3 (06:42→21:47)
[2018-06-25] MEDS: Oral Hygiene Kit OROPHARYNG SCH ×4 (06:44→16:38)
--- NOTE | 2018-06-25 07:14 | P.PN ---
Subjective Interval history: Follow-up on patient with acute renal failure, rhabdomyolysis. Patient seen and examined. Patient is n.p.o. for stress test today. He denies any complaints of chest pain at this time. He says he is still urinating a lot. He says the swelling in his legs is about the same. He denies any fever or chills. He denies any shortness of breath. Denies any nausea vomiting or abdominal pain. Doppler ultrasound was negative for DVT per Physical Exam Vital signs: Vital Signs 06/24/18 08:00 06/24/18 12:00 06/24/18 16:00 Temperature 98.2 F 98.4 F 98.3 F Pulse Rate 96 H 97 H 86 Respiratory Rate 17 15 16 Blood Pressure 141/77 H 158/73 H 136/68 Pulse Oximetry 99 99 96 06/24/18 17:25 06/24/18 20:00 06/25/18 00:00 Temperature 98.2 F 98.3 F Pulse Rate 92 H 93 H 78 Respiratory Rate 18 20 Blood Pressure 101/64 138/64 Pulse Oximetry 96 97 06/25/18 04:00 Temperature 98.5 F Pulse Rate 78 Respiratory Rate 20 Blood Pressure 108/60 Pulse Oximetry 100 Intake & Output 06/24/18 06/25/18 06/25/18 18:59 06:59 18:59 Intake Total 920 / 920 Output Total 1250 / 1250 300 / 300 Balance -330 / -330 -300 / -300 Weight 95.5 kg Intake: Oral 920 / 920 Output: Urine 1250 / 1250 300 / 300 Other: Date of Last Bowel Movement 06/23/18 06/25/18 # Bowel Movements 2 Narrative: GENERAL: WDWN male patient, in no acute distress. Awake and alert. Standing up in his room making sandwiches with crackers and jelly. SKIN: Warm and dry. +PermCath in right IJ. HEENT: Atraumatic. Normocephalic. Pupils equal and round. No scleral icterus. No injection or drainage. No nasal bleeding or discharge. Mucous membranes pink and moist. NECK: Trachea midline. CARDIOVASCULAR: Regular rate and rhythm. RESPIRATORY: No accessory muscle use. Clear to auscultation. Breath sounds equal bilaterally. GASTROINTESTINAL: Abdomen soft, non-tender, nondistended. +BS. MUSCULOSKELETAL: Extremities without clubbing or cyanosis. 1+ pitting lower extremity edema R>L, improved. NEUROLOGICAL: Awake and alert. No obvious cranial nerve deficits. Motor grossly within normal limits. Able to move all extremities spontaneously. Normal speech. PSYCHIATRIC: Calm and cooperative. - Urinary Catheter Management Indwelling Urethral Catheter Cath placed during this visit: yes, but has since been removed by the nurse Reason for continuing: Decision to DC catheter Insertion date: 05/28/18 Insertion time: 13:30 Removal date: 05/29/18 Removal time: 16:15 Results - Labs CBC & Chem 7: 06/23/18 10:55 06/25/18 05:24 Laboratory Results - last 24 hr 06/24/18 06:54 Sodium 140 Potassium 3.8 Chloride 98 Carbon Dioxide 29.3 Anion Gap 13 BUN 40 H Creatinine 5.59 H Estimated GFR 11 L Random Glucose 105 Calcium 9.0 Phosphorus 5.1 H Albumin 3.2 L - Imaging Impressions Venous Doppler Study 06/24/18 00:00 CONCLUSION: 1. Negative examination with no evidence of deep venous thrombosis. 2. Prominent fatty replaced lymph node in the right groin. - Procedures 53-year-old male with acute hypoxic and hypercarbic respiratory failure and acute severe metabolic encephalopathy with associated multiorgan failure including renal failure and liver failure. Patient initially required intubation /ICU care; he has since stabilized and transferred to hospitalist service: 06/16: No significant changes to medical plan. Renal Acute renal failure secondary to rhabdomyolysis from statin. No obstruction. Significant proteinuria. Serology negative. Mild CKD at baseline prior to acute injury. Dialysis started 05/27 -Nephrology consulted -Continue dialysis -s/p dialysis 06/16 -monitor urine output -hold Lisinopril, other nephrotoxins Respiratory Acute hypoxic and hypercarbic respiratory failure: Status post intubation and extubation. Echo with EF 50%; suspected failure from ARF - Supplemental oxygen as needed. - Breathing treatments as needed. -Dialysis as below Cardiovascular Elevated troponin Atrial fibrillation Impression: Cardiology consulted. Echo- EF 50%. [id number] 1. Determined anticoagulation risk high for multiple risks -Continue Plavix -Continue to monitor labs/platelet count Statin induced rhabdomyolysis -Ongoing hemodialysis as above. -Continue to trend CK levels. Alcohol dependence: - Off [facility] protocol. - No signs of withdrawal currently Acute liver failure Impression: Downtrending LFT's. Transaminases >1000 05/26 ----> less than 100 . - Follow LFTs. -s/p lactulose (Ammonia <10 06/04) Acute diverticulitis/rectal pain Impression: 05/26 A/P CT with sigmoid diverticulitis. no reported recent symptoms. Cipro/Flagyl stopped -Continue to monitor Rash: Probable drug reaction: Cipro and Flagyl previously discontinued. Benadryl as needed. Continue Zyrtec and Pepcid. Tobacco dependence -Nicotine patch given DVT PPX Heparin 5K U q8hrs Code Status: Full code Discharge Planning: Pending renal improvement/Nephrology recommendations Assessment and Plan - Assessment (1) RADHA (acute kidney injury) Code(s): N17.9 - Acute kidney failure, unspecified Status: Acute (2) Acute renal failure Code(s): N17.9 - Acute kidney failure, unspecified Status: Acute (3) Transaminitis Code(s): R74.0 - Nonspecific elevation of levels of transaminase and lactic acid dehydrogenase [LDH] Status: Acute (4) Alcohol abuse Code(s): F10.10 - Alcohol abuse, uncomplicated Status: Acute (5) Rhabdomyolysis due to statin therapy Code(s): M62.82 - Rhabdomyolysis Status: Acute (6) NSTEMI (non-ST elevated myocardial infarction) Code(s): I21.4 - Non-ST elevation (NSTEMI) myocardial infarction Status: Acute - Plan 53-year-old male with acute hypoxic and hypercarbic respiratory failure and acute severe metabolic encephalopathy with associated multiorgan failure including renal failure and liver failure. Patient initially required intubation /ICU care; he has since stabilized and transferred to hospitalist service: Renal Acute renal failure secondary to rhabdomyolysis from statin. No obstruction. Significant proteinuria. Serology negative. Mild CKD at baseline prior to acute injury. Baseline Cr 1.5-1.6 Dialysis started 05/27 Patient is non oliguric - Nephrology following, appreciate assistance. Continue HD as necessary per Nephrology. Continue fluid restricted diet. 06/24 IV Bumex discontinued and changed to Bumex 2mg daily. Kidney fxn improving. Plan to remove PermCath. Per IR, must be off Plavix for 5 days, Plavix held, plan to remove on 06/29. Discussed with Dr. Velazquez, recommends patient stay in the hospital until permacath removed. - continue to hold Lisinopril, other nephrotoxins - UOP improved, continue to monitor - monitor kidney function. Cr improved 5.05. Respiratory Acute hypoxic and hypercarbic respiratory failure: Status post intubation and extubation. Echo with EF 50%; suspected failure from ARF - Supplemental oxygen as needed. - Breathing treatments as needed. Cardiovascular Elevated troponin Atrial fibrillation Impression: Cardiology consulted. Echo- EF 50%. [id number] 1. Determined anticoagulation risk high for multiple risks - Continue Plavix - plavix on hold for upcoming permacath removal - Continue to monitor labs/platelet count as indicated -06/24 patient complained of episode of chest tightness yesterday late afternoon. Secondary to anxiety regarding upcoming discharge. Troponin negative x2. Plan for stress test today per Cardiology. Keep n.p.o. Alcohol dependence: - Off [facility] protocol. - No signs of withdrawal currently Acute liver failure Impression: Downtrending LFT's. Transaminases >1000 05/26 ----> less than 100 . LFTs nearly normal - Follow LFTs intermittently. - s/p lactulose (Ammonia <10 06/04) Acute diverticulitis/rectal pain/hemorrhoids Impression: 05/26 A/P CT with sigmoid diverticulitis. no reported recent symptoms. Cipro/Flagyl stopped - complaining of severe/debilitating and progressive rectal pain/spasms secondary to hemorrhoids. Requesting to be resumed on Morphine. Also asking if dose of [place] and be increased to q4h. GI consulted, appreciate assistance. Continue rectal HC supp TID. F/U with GI at discharge. - continue with Anusol Rash: Probable drug reaction: Cipro and Flagyl previously discontinued. Benadryl as needed. Continue Zyrtec and Pepcid. BLE edema, tenderness to palpation RLE calf -Doppler ultrasound negative for DVT Anemia Macrocytosis No evidence of bleeding -Obtain iron studies, B12 and folate level -Monitor CBC as indicated Tobacco dependence -Nicotine patch given DVT PPX Heparin sq Code Status: FULL Discussed Condition With: patient, nursing staff, Dr. Velazquez Discharge Planning: Discharge pending results of stress test and once permacath removed on 06/29 (2) Acute renal failure Qualifiers: Acute renal failure type: unspecified Qualified Code(s): N17.9 - Acute kidney failure, unspecified
[2018-06-25 07:50] LABS: Albumin 3.3 g/dL (3.4-5.0); Calcium 9.3 mg/dL (8.5-10.1); Carbon Dioxide 28.1 meq/L (21.0-32.0); Phosphorus 4.3 mg/dL (2.5-4.9); Potassium 3.6 meq/L (3.5-5.1)
[2018-06-25] MEDS: Chlorhexidine 0.12% Oral Kit 15 ML UDC OROPHARYNG SCH ×2 (08:37→21:47)
[2018-06-25] MEDS: Famotidine 20 MG Tablet PO SCH ×2 (09:58→21:46)
[2018-06-25] MEDS: Polyethylene Glycol 3350 17 GM Packet PO SCH ×2 (09:58→21:47)
[2018-06-25] MEDS: Calcium Acetate 667 MG Capsule PO SCH ×3 (09:59→17:43)
[2018-06-25] MEDS: Lactic Acid (Ammonium Lactate) 12% Lotion 225 GM Bottle TOPICAL SCH ×2 (09:59→21:40)
[2018-06-25] MEDS: Senna/Docusate Sodium 8.6/50 MG Tablet PO SCH ×2 (09:59→21:47)
--- NOTE | 2018-06-25 10:52 | P.PNCA ---
Subjective Interval history: assymptomatic in nad Medications and Allergies Active Medications: Active Medications Acetaminophen (Tylenol) 650 mg PO Q4H PRN PRN Reason: Temp > 100.4 Acetaminophen (Tylenol) 650 mg PO UNSCH PRN PRN Reason: SEE LABEL COMMENTS Acetaminophen (Tylenol) 500 mg PO Q6H PRN PRN Reason: PAIN 1-6 Hydrocodone Bitart/Acetaminophen ([place] 7.5/325) 1 tab PO Q6H PRN PRN Reason: PAIN SCALE 6 TO 10 Last Admin: 06/25/18 06:41 Dose: 1 tab Al Hydroxide/Mg Hydroxide (Milk Of Michael Liparveen) 30 ml PO Q12H PRN PRN Reason: Mild Constipation Albuterol (Duoneb Neb (Prn)) 1 ampul NEB Q2HR NEB PRN PRN Reason: WHEEZING Bisacodyl (Dulcolax Supp) 10 mg RECTAL DAILY PRN PRN Reason: if no BM in last 24h Last Admin: 06/10/18 05:49 Dose: 10 mg Bumetanide (Bumex) 2 mg PO DAILY [facility] Last Admin: 06/25/18 09:58 Dose: 2 mg Calcium Acetate (Phoslo) 667 mg PO TID [facility] Last Admin: 06/25/18 09:59 Dose: 667 mg Cetirizine HCl (Zyrtec) 10 mg PO BID [facility] Last Admin: 06/25/18 09:59 Dose: 10 mg Chlorhexidine Gluconate (Peridex 0.12% Oral Kit) 15 ml OROPHARYNG BID@0800, 2000 [facility] Last Admin: 06/25/18 08:37 Dose: Not Given Clopidogrel Bisulfate (Plavix) 75 mg PO DAILY [facility] Last Admin: 06/24/18 08:03 Dose: 75 mg Diphenhydramine HCl (Benadryl) 25 mg PO Q4H PRN PRN Reason: ITCHING Last Admin: 06/25/18 00:25 Dose: 25 mg Diphenhydramine HCl (Benadryl) 50 mg PO Q6H PRN PRN Reason: ITCHING Last Admin: 06/20/18 20:55 Dose: 50 mg Diphenhydramine HCl (Benadryl Inj) 50 mg IV.PUSH Q6H PRN PRN Reason: ITCHING Last Admin: 06/19/18 15:51 Dose: 50 mg Famotidine (Pepcid) 10 mg PO BID [facility] Last Admin: 06/25/18 09:58 Dose: Not Given Gelatin (Gelfoam 12 Mm/7 Mm Topical) 1 foam TOPICAL PRN PRN PRN Reason: help stop bleeding from site Gentamicin Sulfate (Gentamicin Inj) 20 mg OTHER WITH DIALYSIS PRN PRN Reason: Dwell Gentamycin Lock Last Admin: 06/21/18 09:57 Dose: 20 mg Heparin Sodium (Porcine) (Heparin Inj) 5,000 units SQ Q8HR [facility] Last Admin: 06/25/18 06:42 Dose: Not Given Heparin Sodium (Porcine) (Heparin Inj) 8,000 units OTHER WITH DIALYSIS PRN PRN Reason: for machine prime Last Admin: 06/04/18 12:39 Dose: 3,500 units Heparin Sodium (Porcine) (Heparin Inj) 1,000 units OTHER WITH DIALYSIS PRN PRN Reason: Dwell Heparin to Fill Catheter Last Admin: 06/21/18 09:56 Dose: 1,000 units Hydrocortisone Acetate (Hemorrhoidal Hc Supp) 25 mg RECTAL TID [facility] Last Admin: 06/24/18 18:35 Dose: 25 mg Hydrocortisone Acetate (Hydrocortisone 1% Cream) 1 applicatio TOPICAL TID PRN PRN Reason: RASH Last Admin: 06/25/18 10:00 Dose: 1 applicatio Albumin Human (Flexbumin 25% Inj) 100 mls @ 60 mls/hr IV.SIG WITH DIALYSIS PRN PRN Reason: hypotension / volume replace Last Infusion: 06/16/18 09:02 Dose: Infused Sodium Chloride (Ns Inj) 1,000 mls @ 0 mls/hr OTHER .Q0M PRN PRN Reason: for prime and rinse back Sodium Chloride (Ns Inj) 1,000 mls @ 200 mls/hr OTHER .Q5H PRN PRN Reason: for dialyzer flush PRN Sodium Chloride (Ns Inj) 1,000 mls @ 0 mls/hr IV.CONT .Q0M PRN PRN Reason: hypotension / volume replace Vasopressin 40 unit/ Dextrose 100 mls @ 6 mls/hr IV.CONT CONT [facility]; Protocol Last Infusion: 06/01/18 19:33 Dose: Infused Lactic Acid (Lac-Hydrin 12% Lotion) 1 applicatio TOPICAL BID [facility] Last Admin: 06/25/18 09:59 Dose: 1 applicatio Lactulose (Lactulose Liq) 30 ml PO BID [facility] Last Admin: 06/25/18 09:57 Dose: 30 ml Naloxone HCl (Narcan Inj) 0.4 mg IV.PUSH UNSCH PRN PRN Reason: SEE LABEL COMMENTS Naloxone HCl (Narcan Inj) 0.4 mg IV.PUSH UNSCH PRN PRN Reason: SEE LABEL COMMENTS Nicotine (Habitrol 14 Mg Patch.24 Hr) 1 patch T-DERMAL DAILY [facility] Last Admin: 06/25/18 09:57 Dose: Not Given Nitroglycerin (Nitrostat Sl) 0.4 mg SL Q5M PRN PRN Reason: CHEST PAIN Ondansetron HCl (Zofran Inj) 4 mg IV.PUSH Q6H PRN PRN Reason: NAUSEA OR VOMITING Last Admin: 05/30/18 20:46 Dose: 4 mg Ondansetron HCl (Zofran Inj) 4 mg IV.PUSH UNSCH PRN PRN Reason: NAUSEA OR VOMITING Pantoprazole Sodium (Protonix) 40 mg PO DAILY [facility] Last Admin: 06/25/18 09:58 Dose: 40 mg Patch Removal (Remove Old Patch) 1 each T-DERMAL DAILY [facility] Last Admin: 06/25/18 10:00 Dose: 1 each Polyethylene Glycol (Miralax) 17 gm PO BID [facility] Last Admin: 06/25/18 09:58 Dose: Not Given Senna/Docusate Sodium (Najma-Colace) 1 tab PO BID [facility] Last Admin: 06/25/18 09:59 Dose: 1 tab Sennosides (Senokot) 17.2 mg PO Q12H PRN PRN Reason: Moderate Constipation Sodium Chloride (Ns Flush) 5 ml IV.FLUSH PRN PRN PRN Reason: flush each lumen during HD Sodium Chloride (Ns Flush) 2 ml IV.FLUSH UNSCH PRN PRN Reason: FLUSH AFTER USING IV ACCESS Terbutaline Sulfate (Brethine Inj) 1 mg SQ UNSCH PRN PRN Reason: For Extravasation Thiamine HCl (Vitamin B1) 100 mg PO DAILY [facility] Last Admin: 06/25/18 09:59 Dose: 100 mg Zolpidem Tartrate (Ambien) 5 mg PO HS PRN PRN Reason: INSOMNIA Last Admin: 06/01/18 01:51 Dose: 5 mg Allergies Allergy/AdvReac Type Severity Reaction Status Date / Time [id number] Reductase AdvReac Urinary Verified 06/05/18 16:04 Inhibitor Freq (Inc/Dec) Home Medications Medication Instructions Recorded Confirmed Type atorvastatin 80 mg PO DAILY 04/30/18 05/26/18 History lisinopril 10 mg PO DAILY 04/30/18 05/26/18 History Physical Exam Vital signs: Vital Signs 06/24/18 12:00 06/24/18 16:00 06/24/18 17:25 Temperature 98.4 F 98.3 F Pulse Rate 97 H 86 92 H Respiratory Rate 15 16 Blood Pressure 158/73 H 136/68 Pulse Oximetry 99 96 06/24/18 20:00 06/25/18 00:00 06/25/18 04:00 Temperature 98.2 F 98.3 F 98.5 F Pulse Rate 89 78 78 Respiratory Rate 18 20 20 Blood Pressure 101/64 138/64 108/60 Pulse Oximetry 96 97 100 06/25/18 07:52 Temperature 98.1 F Pulse Rate 88 Respiratory Rate 18 Blood Pressure 127/71 Pulse Oximetry 96 Intake & Output 06/24/18 06/25/18 06/25/18 18:59 06:59 18:59 Intake Total 920 / 920 Output Total 1250 / 1250 300 / 300 Balance -330 / -330 -300 / -300 Weight 95.5 kg Intake: Oral 920 / 920 Output: Urine 1250 / 1250 300 / 300 Other: Date of Last Bowel Movement 06/23/18 06/25/18 # Bowel Movements 2 - Urinary Catheter Management Indwelling Urethral Catheter Cath placed during this visit: yes, but has since been removed by the nurse Reason for continuing: Decision to DC catheter Insertion date: 05/28/18 Insertion time: 13:30 Removal date: 05/29/18 Removal time: 16:15 Results 06/23/18 10:55 06/25/18 05:24 Cardiac Enzymes 06/23/18 06/23/18 Range/Units 10:55 18:47 Troponin I Less than 0.02 L Less than 0.02 L (0.02-0.05) ng/mL CBC 06/23/18 Range/Units 10:55 WBC 5.7 (4.0-11.0) th/mm3 RBC 2.13 L (4.50-5.90) mil/mm3 Hgb 7.8 L (13.0-17.0) gm/dL Hct 23.5 L (39.0-51.0) % Plt Count 219 (150-450) th/mm3 Comprehensive Metabolic Panel 06/24/18 06/25/18 Range/Units 06:54 05:24 Sodium 140 138 (136-145) meq/L Potassium 3.8 3.6 (3.5-5.1) meq/L Chloride 98 99 (98-107) meq/L Carbon Dioxide 29.3 28.1 (21.0-32.0) meq/L BUN 40 H 40 H (7-18) mg/dL Creatinine 5.59 H 5.05 H (0.60-1.30) mg/dL Calcium 9.0 9.3 (8.5-10.1) mg/dL Albumin 3.2 L 3.3 L (3.4-5.0) g/dL Intake and Output 06/24/18 06/25/18 06/25/18 22:59 06:59 14:59 Intake Total 920 / 920 Output Total 1250 / 1250 300 / 300 Balance -330 / -330 -300 / -300 Intake: Oral 920 / 920 Output: Urine 1250 / 1250 300 / 300 Other: Date of Last Bowel Movement 06/25/18 # Bowel Movements 2 Weight 95.5 kg - Imaging and Cardiology Imaging: Impressions Venous Doppler Study 06/24/18 00:00 CONCLUSION: 1. Negative examination with no evidence of deep venous thrombosis. 2. Prominent fatty replaced lymph node in the right groin. Assessment and Plan - Assessment (1) Thrombocytopenia Code(s): D69.6 - Thrombocytopenia, unspecified Status: Acute (2) Anemia Code(s): D64.9 - Anemia, unspecified Status: Acute (3) Leukemia Code(s): C95.90 - Leukemia, unspecified not having achieved remission Status: Acute (4) NSTEMI (non-ST elevated myocardial infarction) Code(s): I21.4 - Non-ST elevation (NSTEMI) myocardial infarction Status: Acute (5) Tobacco abuse Code(s): Z72.0 - Tobacco use Status: Acute (6) RADHA (acute kidney injury) Code(s): N17.9 - Acute kidney failure, unspecified Status: Acute (7) ETOH abuse Code(s): F10.10 - Alcohol abuse, uncomplicated Status: Acute (8) Rectal pain Code(s): K62.89 - Other specified diseases of anus and rectum Status: Deleted (9) Metabolic acidosis Code(s): E87.2 - Acidosis Status: Acute (10) Diverticulitis Code(s): K57.92 - Diverticulitis of intestine, part unspecified, without perforation or abscess without bleeding Status: Acute (11) Acute renal failure Code(s): N17.9 - Acute kidney failure, unspecified Status: Acute (12) Transaminitis Code(s): R74.0 - Nonspecific elevation of levels of transaminase and lactic acid dehydrogenase [LDH] Status: Acute (13) Alcohol abuse Code(s): F10.10 - Alcohol abuse, uncomplicated Status: Acute - Plan 1.) NSTEMI - suspect trop elevation due to arf which appears to be due to rhabdomyolysis, plan plain treadmill test 06/25/18 due to new onset chest tightness, assymptomatic > 24 hours 2.) Afib - 2d echo ef=50%, [id number] score=1, male gender, ac held due to unstable platelet count, hgb and liver function, continue to f/u trends in lfts , hgb, plt ct; rash started @ time aspirin 81 mg qd started 06/01/18, will dc aspirin and start plavix 75 mg qd, 06/05/18, no improvement in rash, i explained to patient that if due to aspirin may take several days for plasma levels of aspirin to decrease and to see improvement if rash is due to aspirin, ; not good candidate for ac with noac or coumadin due to alcohol abuse, liver failure , fall risk and unstable hgb and platelet count 3.) Respiratory failure - ef=50% on echo, assymptomatic 05/27/18, possibly due to volume overload from arf, improved with dialysis 4.) Rash - improved (11) Acute renal failure Qualifiers: Acute renal failure type: unspecified Qualified Code(s): N17.9 - Acute kidney failure, unspecified
[2018-06-25] MEDS: Hydrocortisone Acetate 25 MG Supp RECTAL SCH ×3 (11:41→18:02)
--- NOTE | 2018-06-25 14:44 | P.PNNP ---
Subjective Interval history: Renal function is better. Cleared for discharge after PermCath removal. Physical Exam Vital signs: Vital Signs 06/24/18 16:00 06/24/18 17:25 06/24/18 20:00 Temperature 98.3 F 98.2 F Pulse Rate 86 92 H 89 Respiratory Rate 16 18 Blood Pressure 136/68 101/64 Pulse Oximetry 96 96 06/25/18 00:00 06/25/18 04:00 06/25/18 07:52 Temperature 98.3 F 98.5 F 98.1 F Pulse Rate 78 78 88 Respiratory Rate 20 20 18 Blood Pressure 138/64 108/60 127/71 Pulse Oximetry 97 100 96 06/25/18 08:00 06/25/18 12:00 Temperature 98.9 F Pulse Rate 83 93 H Respiratory Rate 18 Blood Pressure 143/80 H Pulse Oximetry 96 Intake & Output 06/24/18 06/25/18 06/25/18 18:59 06:59 18:59 Intake Total 920 / 920 Output Total 1250 / 1250 300 / 300 Balance -330 / -330 -300 / -300 Weight 95.5 kg Intake: Oral 920 / 920 Output: Urine 1250 / 1250 300 / 300 Other: Date of Last Bowel Movement 06/23/18 06/25/18 06/25/18 # Bowel Movements 2 Narrative: GENERAL: Not in distress. Awake and alert. SKIN: Warm and dry. +PermCath in right IJ. HEENT: Atraumatic. Normocephalic. Pupils equal and round. No scleral icterus. No injection or drainage. No nasal bleeding or discharge. Mucous membranes pink and moist. NECK: Trachea midline. No JVD. CARDIOVASCULAR: Regular rate and rhythm. RESPIRATORY: No accessory muscle use. Clear to auscultation. Breath sounds equal bilaterally. GASTROINTESTINAL: Abdomen soft, non-tender, nondistended. +BS. MUSCULOSKELETAL: Extremities without clubbing or cyanosis. Edema has improved. - Urinary Catheter Management Indwelling Urethral Catheter Cath placed during this visit: yes, but has since been removed by the nurse Reason for continuing: Decision to DC catheter Insertion date: 05/28/18 Insertion time: 13:30 Removal date: 05/29/18 Removal time: 16:15 Assessment and Plan - Assessment (1) RADHA (acute kidney injury) Code(s): N17.9 - Acute kidney failure, unspecified Status: Acute Plan: He has underlying CKD, baseline creatinine was 1.5-1.6 earlier this year. RADHA is due to rhabdomyolysis. Dialysis initiated on 05/27. Avoid nephrotoxic agents. Urine output has improved. Renal function appears to be improving. No need for dialysis. PermCath can be removed. Bumex can be stopped. I expect continued improvement in renal function. Cleared for discharge. (2) ETOH abuse Code(s): F10.10 - Alcohol abuse, uncomplicated Status: Acute Plan: Cessation has been advised.
[2018-06-26] MEDS: Oral Hygiene Kit OROPHARYNG SCH ×4 (00:47→17:07)
[2018-06-26] MEDS: Heparin - SQ 10,000 UNITS/ML Vial SQ SCH ×3 (06:07→21:14)
--- NOTE | 2018-06-26 07:14 | P.PN ---
Subjective Interval history: Follow-up on patient with acute renal failure, rhabdomyolysis. Patient seen and examined. Patient has no new medical complaints. He says he is glad he needs to stay hospitalized until the Permacath can be removed. He has no complaints of chest pain or dyspnea. He denies any N/V or abdominal pain. Physical Exam Vital signs: Vital Signs 06/25/18 07:52 06/25/18 08:00 06/25/18 12:00 Temperature 98.1 F 98.9 F Pulse Rate 88 83 93 H Respiratory Rate 18 18 Blood Pressure 127/71 143/80 H Pulse Oximetry 96 96 06/25/18 15:37 06/25/18 20:00 06/26/18 00:00 Temperature 98.6 F 98.4 F 97.9 F Pulse Rate 87 102 H 77 Respiratory Rate 20 20 20 Blood Pressure 125/73 105/66 127/76 Pulse Oximetry 97 97 97 06/26/18 04:00 Temperature 97.7 F Pulse Rate 88 Respiratory Rate 20 Blood Pressure 128/81 Pulse Oximetry 98 Intake & Output 06/25/18 06/26/18 06/26/18 18:59 06:59 18:59 Intake Total 1300 / 1300 Output Total 900 / 900 Balance 400 / 400 Weight 95.3 kg Intake: Oral 1300 / 1300 Output: Urine 900 / 900 Other: # Voids 8 Date of Last Bowel Movement 06/25/18 06/26/18 # Bowel Movements 1 Narrative: GENERAL: WDWN male patient. Awake and alert. Not in any acute distress. Ambulating around the room without any difficulty. SKIN: Warm and dry. +PermCath in right IJ. HEENT: Atraumatic. Normocephalic. Pupils equal and round. No scleral icterus. No injection or drainage. No nasal bleeding or discharge. Mucous membranes pink and moist. NECK: Trachea midline. CARDIOVASCULAR: Regular rate and rhythm. RESPIRATORY: No accessory muscle use. Clear to auscultation. Breath sounds equal bilaterally. GASTROINTESTINAL: Abdomen soft, non-tender, nondistended. +BS. MUSCULOSKELETAL: Extremities without clubbing or cyanosis. 1+ pitting lower extremity edema R>L, improved. NEUROLOGICAL: Awake and alert. No obvious cranial nerve deficits. Motor grossly within normal limits. Able to move all extremities spontaneously. Normal speech. PSYCHIATRIC: Calm and cooperative. - Urinary Catheter Management Indwelling Urethral Catheter Cath placed during this visit: yes, but has since been removed by the nurse Reason for continuing: Decision to DC catheter Insertion date: 05/28/18 Insertion time: 13:30 Removal date: 05/29/18 Removal time: 16:15 Results - Labs CBC & Chem 7: 06/26/18 07:36 06/25/18 05:24 Laboratory Results - last 24 hr 06/25/18 05:24 Sodium 138 Potassium 3.6 Chloride 99 Carbon Dioxide 28.1 Anion Gap 11 BUN 40 H Creatinine 5.05 H Estimated GFR 12 L Random Glucose 85 Calcium 9.3 Phosphorus 4.3 Albumin 3.3 L - Procedures 53-year-old male with acute hypoxic and hypercarbic respiratory failure and acute severe metabolic encephalopathy with associated multiorgan failure including renal failure and liver failure. Patient initially required intubation /ICU care; he has since stabilized and transferred to hospitalist service: 06/16: No significant changes to medical plan. Renal Acute renal failure secondary to rhabdomyolysis from statin. No obstruction. Significant proteinuria. Serology negative. Mild CKD at baseline prior to acute injury. Dialysis started 05/27 -Nephrology consulted -Continue dialysis -s/p dialysis 06/16 -monitor urine output -hold Lisinopril, other nephrotoxins Respiratory Acute hypoxic and hypercarbic respiratory failure: Status post intubation and extubation. Echo with EF 50%; suspected failure from ARF - Supplemental oxygen as needed. - Breathing treatments as needed. -Dialysis as below Cardiovascular Elevated troponin Atrial fibrillation Impression: Cardiology consulted. Echo- EF 50%. [id number] 1. Determined anticoagulation risk high for multiple risks -Continue Plavix -Continue to monitor labs/platelet count Statin induced rhabdomyolysis -Ongoing hemodialysis as above. -Continue to trend CK levels. Alcohol dependence: - Off CIWA protocol. - No signs of withdrawal currently Acute liver failure Impression: Downtrending LFT's. Transaminases >1000 05/26 ----> less than 100 . - Follow LFTs. -s/p lactulose (Ammonia <10 06/04) Acute diverticulitis/rectal pain Impression: 05/26 A/P CT with sigmoid diverticulitis. no reported recent symptoms. Cipro/Flagyl stopped -Continue to monitor Rash: Probable drug reaction: Cipro and Flagyl previously discontinued. Benadryl as needed. Continue Zyrtec and Pepcid. Tobacco dependence -Nicotine patch given DVT PPX Heparin 5K U q8hrs Code Status: Full code Discharge Planning: Pending renal improvement/Nephrology recommendations Assessment and Plan - Assessment (1) RAHDA (acute kidney injury) Code(s): N17.9 - Acute kidney failure, unspecified Status: Acute (2) Acute renal failure Code(s): N17.9 - Acute kidney failure, unspecified Status: Acute (3) Transaminitis Code(s): R74.0 - Nonspecific elevation of levels of transaminase and lactic acid dehydrogenase [LDH] Status: Acute (4) Alcohol abuse Code(s): F10.10 - Alcohol abuse, uncomplicated Status: Acute (5) Rhabdomyolysis due to statin therapy Code(s): M62.82 - Rhabdomyolysis Status: Acute (6) NSTEMI (non-ST elevated myocardial infarction) Code(s): I21.4 - Non-ST elevation (NSTEMI) myocardial infarction Status: Acute - Plan 53-year-old male with acute hypoxic and hypercarbic respiratory failure and acute severe metabolic encephalopathy with associated multiorgan failure including renal failure and liver failure. Patient initially required intubation /ICU care; he has since stabilized and transferred to hospitalist service: Renal Acute renal failure secondary to rhabdomyolysis from statin. No obstruction. Significant proteinuria. Serology negative. Mild CKD at baseline prior to acute injury. Baseline Cr 1.5-1.6 Dialysis started 05/27 Patient is non oliguric - Nephrology following, appreciate assistance. Continue HD as necessary per Nephrology. Last dialysis 06/21. Continue fluid restricted diet. 06/24 IV Bumex discontinued and changed to Bumex 2mg daily. Kidney fxn improving. Plan to remove PermCath. Per IR, must be off Plavix for 5 days, Plavix held, plan to remove on 06/29. Discussed with Dr. Velazquez, recommends patient stay in the hospital until permacath removed. - continue to hold Lisinopril, avoid other nephrotoxins - UOP improved, continue to monitor - monitor kidney function. Cr improved 5.05. Respiratory Acute hypoxic and hypercarbic respiratory failure: Status post intubation and extubation. Echo with EF 50%; suspected failure from ARF - Supplemental oxygen as needed. - Breathing treatments as needed. Cardiovascular Elevated troponin Atrial fibrillation Impression: Cardiology consulted. Echo- EF 50%. [id number] 1. Determined anticoagulation risk high for multiple risks - Continue Plavix - plavix on hold for upcoming permacath removal - Continue to monitor labs/platelet count as indicated - stress test completed, no e/o ischemia Alcohol dependence: - Off CIIL protocol. - No signs of withdrawal currently Acute liver failure Impression: Downtrending LFT's. Transaminases >1000 05/26 ----> less than 100 . LFTs nearly normal - Follow LFTs intermittently. - s/p lactulose (Ammonia <10 06/04) Acute diverticulitis/rectal pain/hemorrhoids Impression: 05/26 A/P CT with sigmoid diverticulitis. no reported recent symptoms. Cipro/Flagyl stopped - complaining of severe/debilitating and progressive rectal pain/spasms secondary to hemorrhoids. Requesting to be resumed on Morphine. Also asking if dose of [place] and be increased to q4h. GI consulted, appreciate assistance. Continue rectal HC supp TID. F/U with GI at discharge. - continue with Anusol Rash: Probable drug reaction: Cipro and Flagyl previously discontinued. Benadryl as needed. Continue Zyrtec and Pepcid. BLE edema, tenderness to palpation RLE calf -Doppler ultrasound negative for DVT Anemia Macrocytosis No evidence of bleeding -iron 51, TIBC 19.7, ferritin 432, B12 722 -Monitor CBC as indicated Tobacco dependence -Nicotine patch given DVT PPX Heparin sq Code Status: FULL Discussed Condition With: patient, nursing staff Discharge Planning: Discharge pending permacath removal on 06/29 (2) Acute renal failure Qualifiers: Acute renal failure type: unspecified Qualified Code(s): N17.9 - Acute kidney failure, unspecified
[2018-06-26 08:08] LABS: Baso # (Auto) 0.1 th/mm3 (0.0-0.2); Baso % (Auto) 1.3 % (0.0-2.0); Eos # (Auto) 0.4 th/mm3 (0.0-0.4); Hematocrit 23.4 % (39.0-51.0); Hemoglobin 7.8 gm/dL (13.0-17.0); Lymph # (Auto) 0.9 th/mm3 (1.0-4.8); Lymph % (Auto) 17.7 % (9.0-44.0); Mean Corpuscular HGB Conc 33.3 % (32.0-36.0); Mean Corpuscular Hemoglobin 36.5 pg (27.0-34.0); Mean Corpuscular Volume 109.6 fL (80.0-100.0); Mean Platelet Volume 8.1 fL (7.0-11.0); Mono # (Auto) 0.4 th/mm3 (0.0-0.9); Mono % (Auto) 7.4 % (0.0-8.0); Neut # (Auto) 3.2 th/mm3 (1.8-7.7); Neut % (Auto) 65.6 % (16.0-70.0); Platelet Count 208 th/mm3 (150-450); Red Blood Count 2.14 mil/mm3 (4.50-5.90); Red Cell Distribution Width 15.7 % (11.6-17.2); White Blood Count 4.9 th/mm3 (4.0-11.0)
[2018-06-26 08:54] LABS: % Iron Saturation 19.7 % (20-50)
[2018-06-26] MEDS: Senna/Docusate Sodium 8.6/50 MG Tablet PO SCH ×2 (09:56→21:12)
[2018-06-26] MEDS: Polyethylene Glycol 3350 17 GM Packet PO SCH ×2 (09:56→21:12)
[2018-06-26] MEDS: Calcium Acetate 667 MG Capsule PO SCH ×3 (09:57→17:08)
[2018-06-26] MEDS: Hydrocortisone Acetate 25 MG Supp RECTAL SCH ×3 (10:01→17:08)
[2018-06-26] MEDS: Famotidine 20 MG Tablet PO SCH ×2 (10:02→21:14)
[2018-06-26] MEDS: Chlorhexidine 0.12% Oral Kit 15 ML UDC OROPHARYNG SCH ×2 (10:02→21:10)
[2018-06-26] MEDS: Lactic Acid (Ammonium Lactate) 12% Lotion 225 GM Bottle TOPICAL SCH ×2 (10:02→21:14)
--- NOTE | 2018-06-26 11:05 | P.PNCA ---
Subjective Interval history: assymptomatic in nad Medications and Allergies Active Medications: Active Medications Acetaminophen (Tylenol) 650 mg PO Q4H PRN PRN Reason: Temp > 100.4 Acetaminophen (Tylenol) 650 mg PO UNSCH PRN PRN Reason: SEE LABEL COMMENTS Acetaminophen (Tylenol) 500 mg PO Q6H PRN PRN Reason: PAIN 1-6 Hydrocodone Bitart/Acetaminophen ([place] 7.5/325) 1 tab PO Q6H PRN PRN Reason: PAIN SCALE 6 TO 10 Last Admin: 06/26/18 06:06 Dose: 1 tab Al Hydroxide/Mg Hydroxide (Milk Of Michael Liparveen) 30 ml PO Q12H PRN PRN Reason: Mild Constipation Albuterol (Duoneb Neb (Prn)) 1 ampul NEB Q2HR NEB PRN PRN Reason: WHEEZING Bisacodyl (Dulcolax Supp) 10 mg RECTAL DAILY PRN PRN Reason: if no BM in last 24h Last Admin: 06/10/18 05:49 Dose: 10 mg Calcium Acetate (Phoslo) 667 mg PO TID [facility] Last Admin: 06/26/18 09:57 Dose: 667 mg Cetirizine HCl (Zyrtec) 10 mg PO BID [facility] Last Admin: 06/26/18 09:58 Dose: 10 mg Chlorhexidine Gluconate (Peridex 0.12% Oral Kit) 15 ml OROPHARYNG BID@0800, 2000 [facility] Last Admin: 06/26/18 10:02 Dose: Not Given Clopidogrel Bisulfate (Plavix) 75 mg PO DAILY [facility] Last Admin: 06/24/18 08:03 Dose: 75 mg Diphenhydramine HCl (Benadryl) 25 mg PO Q4H PRN PRN Reason: ITCHING Last Admin: 06/26/18 00:33 Dose: 25 mg Diphenhydramine HCl (Benadryl) 50 mg PO Q6H PRN PRN Reason: ITCHING Last Admin: 06/20/18 20:55 Dose: 50 mg Diphenhydramine HCl (Benadryl Inj) 50 mg IV.PUSH Q6H PRN PRN Reason: ITCHING Last Admin: 06/19/18 15:51 Dose: 50 mg Famotidine (Pepcid) 10 mg PO BID [facility] Last Admin: 06/26/18 10:02 Dose: Not Given Gelatin (Gelfoam 12 Mm/7 Mm Topical) 1 foam TOPICAL PRN PRN PRN Reason: help stop bleeding from site Gentamicin Sulfate (Gentamicin Inj) 20 mg OTHER WITH DIALYSIS PRN PRN Reason: Dwell Gentamycin Lock Last Admin: 06/21/18 09:57 Dose: 20 mg Heparin Sodium (Porcine) (Heparin Inj) 5,000 units SQ Q8HR [facility] Last Admin: 06/26/18 06:07 Dose: Not Given Heparin Sodium (Porcine) (Heparin Inj) 8,000 units OTHER WITH DIALYSIS PRN PRN Reason: for machine prime Last Admin: 06/04/18 12:39 Dose: 3,500 units Heparin Sodium (Porcine) (Heparin Inj) 1,000 units OTHER WITH DIALYSIS PRN PRN Reason: Dwell Heparin to Fill Catheter Last Admin: 06/21/18 09:56 Dose: 1,000 units Hydrocortisone Acetate (Hemorrhoidal Hc Supp) 25 mg RECTAL TID [facility] Last Admin: 06/26/18 10:01 Dose: 25 mg Hydrocortisone Acetate (Hydrocortisone 1% Cream) 1 applicatio TOPICAL TID PRN PRN Reason: RASH Last Admin: 06/25/18 10:00 Dose: 1 applicatio Albumin Human (Flexbumin 25% Inj) 100 mls @ 60 mls/hr IV.SIG WITH DIALYSIS PRN PRN Reason: hypotension / volume replace Last Infusion: 06/16/18 09:02 Dose: Infused Sodium Chloride (Ns Inj) 1,000 mls @ 0 mls/hr OTHER .Q0M PRN PRN Reason: for prime and rinse back Sodium Chloride (Ns Inj) 1,000 mls @ 200 mls/hr OTHER .Q5H PRN PRN Reason: for dialyzer flush PRN Sodium Chloride (Ns Inj) 1,000 mls @ 0 mls/hr IV.CONT .Q0M PRN PRN Reason: hypotension / volume replace Vasopressin 40 unit/ Dextrose 100 mls @ 6 mls/hr IV.CONT CONT [facility]; Protocol Last Infusion: 06/01/18 19:33 Dose: Infused Lactic Acid (Lac-Hydrin 12% Lotion) 1 applicatio TOPICAL BID [facility] Last Admin: 06/26/18 10:02 Dose: 1 applicatio Lactulose (Lactulose Liq) 30 ml PO BID [facility] Last Admin: 06/26/18 09:56 Dose: 30 ml Naloxone HCl (Narcan Inj) 0.4 mg IV.PUSH UNSCH PRN PRN Reason: SEE LABEL COMMENTS Naloxone HCl (Narcan Inj) 0.4 mg IV.PUSH UNSCH PRN PRN Reason: SEE LABEL COMMENTS Nicotine (Habitrol 14 Mg Patch.24 Hr) 1 patch T-DERMAL DAILY [facility] Last Admin: 06/26/18 10:02 Dose: 1 patch Nitroglycerin (Nitrostat Sl) 0.4 mg SL Q5M PRN PRN Reason: CHEST PAIN Ondansetron HCl (Zofran Inj) 4 mg IV.PUSH Q6H PRN PRN Reason: NAUSEA OR VOMITING Last Admin: 05/30/18 20:46 Dose: 4 mg Ondansetron HCl (Zofran Inj) 4 mg IV.PUSH UNSCH PRN PRN Reason: NAUSEA OR VOMITING Pantoprazole Sodium (Protonix) 40 mg PO DAILY [facility] Last Admin: 06/26/18 09:57 Dose: 40 mg Patch Removal (Remove Old Patch) 1 each T-DERMAL DAILY [facility] Last Admin: 06/26/18 10:01 Dose: 1 each Polyethylene Glycol (Miralax) 17 gm PO BID [facility] Last Admin: 06/26/18 09:56 Dose: 17 gm Senna/Docusate Sodium (Najma-Colace) 1 tab PO BID [facility] Last Admin: 06/26/18 09:56 Dose: 1 tab Sennosides (Senokot) 17.2 mg PO Q12H PRN PRN Reason: Moderate Constipation Sodium Chloride (Ns Flush) 5 ml IV.FLUSH PRN PRN PRN Reason: flush each lumen during HD Sodium Chloride (Ns Flush) 2 ml IV.FLUSH UNSCH PRN PRN Reason: FLUSH AFTER USING IV ACCESS Terbutaline Sulfate (Brethine Inj) 1 mg SQ UNSCH PRN PRN Reason: For Extravasation Thiamine HCl (Vitamin B1) 100 mg PO DAILY [facility] Last Admin: 06/26/18 09:57 Dose: 100 mg Zolpidem Tartrate (Ambien) 5 mg PO HS PRN PRN Reason: INSOMNIA Last Admin: 06/01/18 01:51 Dose: 5 mg Allergies Allergy/AdvReac Type Severity Reaction Status Date / Time [id number] Reductase AdvReac Urinary Verified 06/05/18 16:04 Inhibitor Freq (Inc/Dec) Home Medications Medication Instructions Recorded Confirmed Type atorvastatin 80 mg PO DAILY 04/30/18 05/26/18 History lisinopril 10 mg PO DAILY 04/30/18 05/26/18 History Physical Exam Vital signs: Vital Signs 06/25/18 12:00 06/25/18 15:37 06/25/18 20:00 Temperature 98.9 F 98.6 F 98.4 F Pulse Rate 93 H 87 102 H Respiratory Rate 18 20 20 Blood Pressure 143/80 H 125/73 105/66 Pulse Oximetry 96 97 97 06/26/18 00:00 06/26/18 04:00 06/26/18 08:00 Temperature 97.9 F 97.7 F 98.2 F Pulse Rate 77 88 97 H Respiratory Rate 20 20 20 Blood Pressure 127/76 128/81 127/81 Pulse Oximetry 97 98 98 Intake & Output 06/25/18 06/26/18 06/26/18 18:59 06:59 18:59 Intake Total 1300 / 1300 Output Total 900 / 900 Balance 400 / 400 Weight 95.3 kg Intake: Oral 1300 / 1300 Output: Urine 900 / 900 Other: # Voids 8 Date of Last Bowel Movement 06/25/18 06/26/18 # Bowel Movements 1 - Constitutional no acute distress - Routine HEENT Exam Head: Present: normocephalic, atraumatic - Routine Neck Exam Present: supple, full ROM - Routine Respiratory Exam Present: CTA bilaterally - Routine Cardiovascular Exam Present: S1, S2 - Routine Abdominal Exam Present: soft - Detailed Extremities Exam: Vascular Comments: no richard - Urinary Catheter Management Indwelling Urethral Catheter Cath placed during this visit: yes, but has since been removed by the nurse Reason for continuing: Decision to DC catheter Insertion date: 05/28/18 Insertion time: 13:30 Removal date: 05/29/18 Removal time: 16:15 Results 06/26/18 07:36 06/25/18 05:24 CBC 06/26/18 Range/Units 07:36 WBC 4.9 (4.0-11.0) th/mm3 RBC 2.14 L (4.50-5.90) mil/mm3 Hgb 7.8 L (13.0-17.0) gm/dL Hct 23.4 L (39.0-51.0) % Plt Count 208 (150-450) th/mm3 Neut # (Auto) 3.2 (1.8-7.7) th/mm3 Lymph # (Auto) 0.9 L (1.0-4.8) th/mm3 [place] # (Auto) 0.4 (0.0-0.9) th/mm3 Eos # (Auto) 0.4 (0.0-0.4) th/mm3 Baso # (Auto) 0.1 (0.0-0.2) th/mm3 Comprehensive Metabolic Panel 06/25/18 Range/Units 05:24 Sodium 138 (136-145) meq/L Potassium 3.6 (3.5-5.1) meq/L Chloride 99 (98-107) meq/L Carbon Dioxide 28.1 (21.0-32.0) meq/L BUN 40 H (7-18) mg/dL Creatinine 5.05 H (0.60-1.30) mg/dL Calcium 9.3 (8.5-10.1) mg/dL Albumin 3.3 L (3.4-5.0) g/dL Intake and Output 06/25/18 06/26/18 06/26/18 22:59 06:59 14:59 Intake Total 1300 / 1300 Output Total 900 / 900 Balance 400 / 400 Intake: Oral 1300 / 1300 Output: Urine 900 / 900 Other: # Voids 8 Date of Last Bowel Movement 06/26/18 # Bowel Movements 1 Weight 95.3 kg - Imaging and Cardiology Imaging: Impressions Venous Doppler Study 06/24/18 00:00 CONCLUSION: 1. Negative examination with no evidence of deep venous thrombosis. 2. Prominent fatty replaced lymph node in the right groin. Assessment and Plan - Assessment (1) Thrombocytopenia Code(s): D69.6 - Thrombocytopenia, unspecified Status: Acute (2) Anemia Code(s): D64.9 - Anemia, unspecified Status: Acute (3) Leukemia Code(s): C95.90 - Leukemia, unspecified not having achieved remission Status: Acute (4) NSTEMI (non-ST elevated myocardial infarction) Code(s): I21.4 - Non-ST elevation (NSTEMI) myocardial infarction Status: Acute (5) Tobacco abuse Code(s): Z72.0 - Tobacco use Status: Acute (6) RADHA (acute kidney injury) Code(s): N17.9 - Acute kidney failure, unspecified Status: Acute (7) ETOH abuse Code(s): F10.10 - Alcohol abuse, uncomplicated Status: Acute (8) Metabolic acidosis Code(s): E87.2 - Acidosis Status: Acute (9) Diverticulitis Code(s): K57.92 - Diverticulitis of intestine, part unspecified, without perforation or abscess without bleeding Status: Acute (10) Acute renal failure Code(s): N17.9 - Acute kidney failure, unspecified Status: Acute (11) Transaminitis Code(s): R74.0 - Nonspecific elevation of levels of transaminase and lactic acid dehydrogenase [LDH] Status: Acute (12) Alcohol abuse Code(s): F10.10 - Alcohol abuse, uncomplicated Status: Acute - Plan 1.) NSTEMI - suspect trop elevation due to arf which appears to be due to rhabdomyolysis, plain treadmill test 06/25/18 negative for ischemia 2.) Afib - 2d echo ef=50%, [id number] score=1, male gender, ac held due to unstable platelet count, hgb and liver function, continue to f/u trends in lfts , hgb, plt ct; rash started @ time aspirin 81 mg qd started 06/01/18, will dc aspirin and start plavix 75 mg qd, 06/05/18, no improvement in rash, i explained to patient that if due to aspirin may take several days for plasma levels of aspirin to decrease and to see improvement if rash is due to aspirin, ; not good candidate for ac with noac or coumadin due to alcohol abuse, liver failure , fall risk and unstable hgb and platelet count 3.) Respiratory failure - ef=50% on echo, assymptomatic 05/27/18, possibly due to volume overload from arf, improved with dialysis 4.) Rash - improved (10) Acute renal failure Qualifiers: Acute renal failure type: unspecified Qualified Code(s): N17.9 - Acute kidney failure, unspecified
--- NOTE | 2018-06-26 11:24 | TR ---
Date Performed: 06/25/2018 Time Performed: 10:39:51 DOCTOR: Jorden Saavedra DRUG LIST: CLINICAL HISTORY: POSITIVE TROPONINS REASON FOR TEST: REASON FOR ENDING: OBSERVATION: CONCLUSION: Jesús protocol completed. Stopped sec to exceeding target heart rate and leg fatigue . Baseline EKG afib. Maximum UN=396 Max HR Xcmyrquj=650.0% Maximum FI=227/88 Total Exercise Time=3:3 2. No reprod chest discomfort/tightness. Shortness of breath at peak, recovered in recovery. Poor exe rcise tolerance. No st segment change. Recovery quick and unremarkable. COMMENTS: Conclusion: Normal treadmill exercise. No evidence of ischemia.
[2018-06-27] MEDS: Oral Hygiene Kit OROPHARYNG SCH ×4 (01:56→16:55)
[2018-06-27] MEDS: Heparin - SQ 10,000 UNITS/ML Vial SQ SCH ×3 (07:01→21:56)
--- NOTE | 2018-06-27 07:40 | P.PN ---
Subjective Interval history: Patient doing well, tolerating PO. Patient is voiding/stooling well. Patient has no concerns, reports that his permacath will be removed next week. No overnight concerns. Physical Exam Vital signs: Vital Signs 06/26/18 08:00 06/26/18 12:00 06/26/18 16:00 Temperature 98.2 F 97.4 F L 98.8 F Pulse Rate 97 H 84 71 Respiratory Rate 16 18 18 Blood Pressure 127/81 131/93 H 123/72 Pulse Oximetry 98 99 97 06/26/18 20:00 06/27/18 00:00 06/27/18 04:00 Temperature 98.6 F 97.8 F 98 F Pulse Rate 105 H 118 H 92 H Respiratory Rate 18 18 18 Blood Pressure 108/72 132/60 128/63 Pulse Oximetry 96 96 96 Intake & Output 06/26/18 06/27/18 06/27/18 18:59 06:59 18:59 Intake Total 700 / 700 465 / 465 Output Total 700 / 700 Balance 0 / 0 465 / 465 Weight 95.3 kg Intake: Oral 700 / 700 465 / 465 Output: Urine 700 / 700 Other: Date of Last Bowel Movement 06/26/18 Narrative: GENERAL: Well-nourished male, in NAD, sitting comfortably in chair SKIN: Warm and dry. +PermCath in right IJ. HEENT: Normocephalic, atraumatic, PERRLA. No scleral icterus. No injection or drainage. No nasal bleeding or discharge. MOM. NECK: Trachea midline. No JVD. CARDIOVASCULAR: Regular rate and rhythm. S1 and S2, no murmurs, rubs, or gallops. RESPIRATORY: CTAx2 GASTROINTESTINAL: Abdomen soft, non-tender, nondistended. +BS. MUSCULOSKELETAL: Extremities without clubbing or cyanosis. Trace BL LE edema. NEUROLOGICAL: Awake and alert. No obvious cranial nerve deficits. Motor grossly within normal limits. Able to move all extremities spontaneously. Normal speech. PSYCHIATRIC: Calm and cooperative. - Urinary Catheter Management Indwelling Urethral Catheter Cath placed during this visit: yes, but has since been removed by the nurse Reason for continuing: Decision to DC catheter Insertion date: 05/28/18 Insertion time: 13:30 Removal date: 05/29/18 Removal time: 16:15 Results - Labs CBC & Chem 7: 06/27/18 08:21 06/27/18 08:21 Laboratory Results - last 24 hr 06/26/18 06/26/18 07:36 07:36 WBC 4.9 RBC 2.14 L Hgb 7.8 L Hct 23.4 L MCV 109.6 H MCH 36.5 H MCHC 33.3 RDW 15.7 Plt Count 208 MPV 8.1 Neut % (Auto) 65.6 Lymph % (Auto) 17.7 [place] % (Auto) 7.4 Eos % (Auto) 8.0 H Baso % (Auto) 1.3 Neut # (Auto) 3.2 Lymph # (Auto) 0.9 L [place] # (Auto) 0.4 Eos # (Auto) 0.4 Baso # (Auto) 0.1 WBC Differential . Differential Comment Auto diff final Iron 51 L TIBC 259 % Saturation 19.7 L Ferritin 432 H Vitamin B12 722 Microbiology 06/27/18 03:25 Stool Stool Occult Blood (JOSE) - Final Hemoccult negative - Procedures 53-year-old male with acute hypoxic and hypercarbic respiratory failure and acute severe metabolic encephalopathy with associated multiorgan failure including renal failure and liver failure. Patient initially required intubation /ICU care; he has since stabilized and transferred to hospitalist service: 06/16: No significant changes to medical plan. Renal Acute renal failure secondary to rhabdomyolysis from statin. No obstruction. Significant proteinuria. Serology negative. Mild CKD at baseline prior to acute injury. Dialysis started 05/27 -Nephrology consulted -Continue dialysis -s/p dialysis 06/16 -monitor urine output -hold Lisinopril, other nephrotoxins Respiratory Acute hypoxic and hypercarbic respiratory failure: Status post intubation and extubation. Echo with EF 50%; suspected failure from ARF - Supplemental oxygen as needed. - Breathing treatments as needed. -Dialysis as below Cardiovascular Elevated troponin Atrial fibrillation Impression: Cardiology consulted. Echo- EF 50%. [id number] 1. Determined anticoagulation risk high for multiple risks -Continue Plavix -Continue to monitor labs/platelet count Statin induced rhabdomyolysis -Ongoing hemodialysis as above. -Continue to trend CK levels. Alcohol dependence: - Off CIAK protocol. - No signs of withdrawal currently Acute liver failure Impression: Downtrending LFT's. Transaminases >1000 05/26 ----> less than 100 . - Follow LFTs. -s/p lactulose (Ammonia <10 06/04) Acute diverticulitis/rectal pain Impression: 05/26 A/P CT with sigmoid diverticulitis. no reported recent symptoms. Cipro/Flagyl stopped -Continue to monitor Rash: Probable drug reaction: Cipro and Flagyl previously discontinued. Benadryl as needed. Continue Zyrtec and Pepcid. Tobacco dependence -Nicotine patch given DVT PPX Heparin 5K U q8hrs Code Status: Full code Discharge Planning: Pending renal improvement/Nephrology recommendations Assessment and Plan - Assessment (1) RADHA (acute kidney injury) Code(s): N17.9 - Acute kidney failure, unspecified Status: Acute (2) Acute renal failure Code(s): N17.9 - Acute kidney failure, unspecified Status: Acute (3) Transaminitis Code(s): R74.0 - Nonspecific elevation of levels of transaminase and lactic acid dehydrogenase [LDH] Status: Acute (4) Alcohol abuse Code(s): F10.10 - Alcohol abuse, uncomplicated Status: Acute (5) Rhabdomyolysis due to statin therapy Code(s): M62.82 - Rhabdomyolysis Status: Acute (6) NSTEMI (non-ST elevated myocardial infarction) Code(s): I21.4 - Non-ST elevation (NSTEMI) myocardial infarction Status: Acute - Plan 53-year-old CM admitted for acute hypoxic and hypercarbic respiratory failure and acute severe metabolic encephalopathy with associated multiorgan failure including renal failure and liver failure. Patient initially required intubation /ICU care; he has since stabilized and transferred to hospitalist service, admitted on 05/26 1. Acute Renal Failure secondary to rhabdomyolysis from statin, Improving Creatinine 3.66 today from 5.05 Mild CKD at baseline prior to acute injury. Baseline Cr 1.5-1.6 Dialysis started 05/27 Patient is non oliguric Nephrology following, appreciate assistance. Continue HD as necessary per Nephrology. Last dialysis 06/21. Continue fluid restricted diet. Bumex discontinued per Nephro reccs Plan to remove PermCath next wk. Per IR, must be off Plavix for 5 days, Plavix held, plan to remove on 06/29. Discussed with Dr. Velazquez, recommends patient stay in the hospital until permacath removed. Continue to hold Lisinopril, avoid other nephrotoxins F/U BMP in AM Per Nephro reccs: He has underlying CKD, baseline creatinine was 1.5-1.6 earlier this year. RADHA is due to rhabdomyolysis. Dialysis initiated on 05/27. Avoid nephrotoxic agents. Urine output has improved. Renal function appears to be improving. No need for dialysis. PermCath can be removed. Bumex can be stopped. I expect continued improvement in renal function. Cleared for discharge. 2. Acute Hypoxic and Hypercarbic respiratory failure, resolved Status post intubation and extubation Echo with EF 50%; suspected failure from ARF Oxygen and Albuterol PRN 3. Atrial Fibrillation/NSTEMI Cardiology consulted. Echo with EF 50%. [id number] 1. Determined anticoagulation risk high for multiple risks. Continue Plavix Stress test completed, no ischemia Per Cards Note: 1.) NSTEMI - suspect trop elevation due to arf which appears to be due to rhabdomyolysis, plain treadmill test 06/25/18 negative for ischemia 2.) Afib - 2d echo ef=50%, [id number] score=1, male gender, ac held due to unstable platelet count, hgb and liver function, continue to f/u trends in lfts , hgb, plt ct; rash started @ time aspirin 81 mg qd started 06/01/18, will dc aspirin and start plavix 75 mg qd, 06/05/18, no improvement in rash, i explained to patient that if due to aspirin may take several days for plasma levels of aspirin to decrease and to see improvement if rash is due to aspirin, ; not good candidate for ac with noac or coumadin due to alcohol abuse, liver failure , fall risk and unstable hgb and platelet count 3.) Respiratory failure - ef=50% on echo, assymptomatic 05/27/18, possibly due to volume overload from arf, improved with dialysis 4.) Rash - improved 4. Alcohol Dependence No signs of withdrawal currently Off of CIWA Cont. Thiamine/MV 5. Acute liver failure, resolved LFT's WNL today 6. Acute diverticulitis/rectal pain/hemorrhoids 05/[address] with sigmoid diverticulitis, no reported recent symptoms, Cipro/ Flagyl stopped GI consulted, appreciate assistance. Continue rectal HC supp TID. F/U with GI at discharge. 7. Rash, resolved, probable drug reaction Cipro and Flagyl previously discontinued. Benadryl as needed. Continue Zyrtec and Pepcid. 8. Anemia, Macrocytic No evidence of bleeding Iron 51, TIBC 19.7, ferritin 432, B12 722 Monitor CBC as indicated 9. Tobacco dependence Nicotine patch given 10. GERD: Cont. PPI 11. DVT PPX: Heparin 12. Dispo: pending Permacath removal on 06/29 Code Status: full Discussed Condition With: patient, RN (2) Acute renal failure Qualifiers: Acute renal failure type: unspecified Qualified Code(s): N17.9 - Acute kidney failure, unspecified
[2018-06-27] MEDS: Polyethylene Glycol 3350 17 GM Packet PO SCH ×2 (09:54→21:55)
[2018-06-27] MEDS: Senna/Docusate Sodium 8.6/50 MG Tablet PO SCH ×2 (09:55→21:55)
[2018-06-27] MEDS: Calcium Acetate 667 MG Capsule PO SCH ×3 (09:55→17:55)
[2018-06-27] MEDS: Famotidine 20 MG Tablet PO SCH ×3 (09:55→21:55)
[2018-06-27] MEDS: Lactic Acid (Ammonium Lactate) 12% Lotion 225 GM Bottle TOPICAL SCH ×2 (09:57→21:59)
[2018-06-27] MEDS: Hydrocortisone Acetate 25 MG Supp RECTAL SCH ×3 (10:00→17:56)
[2018-06-27] MEDS: Chlorhexidine 0.12% Oral Kit 15 ML UDC OROPHARYNG SCH ×2 (10:01→21:55)
[2018-06-27 10:12] LABS: Baso # (Auto) 0.1 th/mm3 (0.0-0.2); Baso % (Auto) 1.4 % (0.0-2.0); Eos # (Auto) 0.6 th/mm3 (0.0-0.4); Eos % (Auto) 9.7 % (0.0-4.0); Hematocrit 23.7 % (39.0-51.0); Hemoglobin 7.9 gm/dL (13.0-17.0); Lymph # (Auto) 1.3 th/mm3 (1.0-4.8); Lymph % (Auto) 21.6 % (9.0-44.0); Mean Corpuscular HGB Conc 33.2 % (32.0-36.0); Mean Corpuscular Hemoglobin 36.5 pg (27.0-34.0); Mean Corpuscular Volume 109.8 fL (80.0-100.0); Mean Platelet Volume 8.4 fL (7.0-11.0); Mono # (Auto) 0.3 th/mm3 (0.0-0.9); Mono % (Auto) 5.6 % (0.0-8.0); Neut # (Auto) 3.7 th/mm3 (1.8-7.7); Neut % (Auto) 61.7 % (16.0-70.0); Platelet Count 220 th/mm3 (150-450); Red Blood Count 2.16 mil/mm3 (4.50-5.90); Red Cell Distribution Width 15.5 % (11.6-17.2)
[2018-06-27 10:52] LABS: Alanine Aminotransferase 33 U/L (12-78); Albumin 3.1 g/dL (3.4-5.0); Alkaline Phosphatase 91 U/L (45-117); Anion Gap 11 meq/L (5-15); Aspartate Aminotransferase 35 U/L (15-37); Blood Urea Nitrogen 32 mg/dL (7-18); Calcium 8.6 mg/dL (8.5-10.1); Carbon Dioxide 29.2 meq/L (21.0-32.0); Chloride 100 meq/L (98-107); Glomerular Filtration Rate 17 mL/min (>89); Glucose,Random 166 mg/dL (74-106); Potassium 3.8 meq/L (3.5-5.1); Sodium 140 meq/L (136-145); Total Protein 7.4 g/dL (6.4-8.2)
--- NOTE | 2018-06-27 11:50 | P.PNCA ---
Subjective Interval history: assymptomatic in nad Medications and Allergies Active Medications: Active Medications Acetaminophen (Tylenol) 650 mg PO Q4H PRN PRN Reason: Temp > 100.4 Acetaminophen (Tylenol) 650 mg PO UNSCH PRN PRN Reason: SEE LABEL COMMENTS Acetaminophen (Tylenol) 500 mg PO Q6H PRN PRN Reason: PAIN 1-6 Hydrocodone Bitart/Acetaminophen ([place] 7.5/325) 1 tab PO Q6H PRN PRN Reason: PAIN SCALE 6 TO 10 Last Admin: 06/27/18 05:55 Dose: 1 tab Al Hydroxide/Mg Hydroxide (Milk Of Michael Zambrano) 30 ml PO Q12H PRN PRN Reason: Mild Constipation Albuterol (Duoneb Neb (Prn)) 1 ampul NEB Q2HR NEB PRN PRN Reason: WHEEZING Bisacodyl (Dulcolax Supp) 10 mg RECTAL DAILY PRN PRN Reason: if no BM in last 24h Last Admin: 06/10/18 05:49 Dose: 10 mg Calcium Acetate (Phoslo) 667 mg PO TID [facility] Last Admin: 06/27/18 09:55 Dose: 667 mg Cetirizine HCl (Zyrtec) 10 mg PO BID [facility] Last Admin: 06/27/18 09:55 Dose: 10 mg Chlorhexidine Gluconate (Peridex 0.12% Oral Kit) 15 ml OROPHARYNG BID@0800, 2000 [facility] Last Admin: 06/27/18 10:01 Dose: Not Given Clopidogrel Bisulfate (Plavix) 75 mg PO DAILY [facility] Last Admin: 06/24/18 08:03 Dose: 75 mg Diphenhydramine HCl (Benadryl) 25 mg PO Q4H PRN PRN Reason: ITCHING Last Admin: 06/26/18 00:33 Dose: 25 mg Diphenhydramine HCl (Benadryl) 50 mg PO Q6H PRN PRN Reason: ITCHING Last Admin: 06/27/18 09:59 Dose: 50 mg Diphenhydramine HCl (Benadryl Inj) 50 mg IV.PUSH Q6H PRN PRN Reason: ITCHING Last Admin: 06/19/18 15:51 Dose: 50 mg Famotidine (Pepcid) 10 mg PO BID [facility] Last Admin: 06/27/18 09:55 Dose: Not Given Gelatin (Gelfoam 12 Mm/7 Mm Topical) 1 foam TOPICAL PRN PRN PRN Reason: help stop bleeding from site Gentamicin Sulfate (Gentamicin Inj) 20 mg OTHER WITH DIALYSIS PRN PRN Reason: Dwell Gentamycin Lock Last Admin: 06/21/18 09:57 Dose: 20 mg Heparin Sodium (Porcine) (Heparin Inj) 5,000 units SQ Q8HR [facility] Last Admin: 06/27/18 07:01 Dose: Not Given Heparin Sodium (Porcine) (Heparin Inj) 8,000 units OTHER WITH DIALYSIS PRN PRN Reason: for machine prime Last Admin: 06/04/18 12:39 Dose: 3,500 units Heparin Sodium (Porcine) (Heparin Inj) 1,000 units OTHER WITH DIALYSIS PRN PRN Reason: Dwell Heparin to Fill Catheter Last Admin: 06/21/18 09:56 Dose: 1,000 units Hydrocortisone Acetate (Hemorrhoidal Hc Supp) 25 mg RECTAL TID [facility] Last Admin: 06/27/18 10:00 Dose: 25 mg Hydrocortisone Acetate (Hydrocortisone 1% Cream) 1 applicatio TOPICAL TID PRN PRN Reason: RASH Last Admin: 06/25/18 10:00 Dose: 1 applicatio Albumin Human (Flexbumin 25% Inj) 100 mls @ 60 mls/hr IV.SIG WITH DIALYSIS PRN PRN Reason: hypotension / volume replace Last Infusion: 06/16/18 09:02 Dose: Infused Sodium Chloride (Ns Inj) 1,000 mls @ 0 mls/hr OTHER .Q0M PRN PRN Reason: for prime and rinse back Sodium Chloride (Ns Inj) 1,000 mls @ 200 mls/hr OTHER .Q5H PRN PRN Reason: for dialyzer flush PRN Sodium Chloride (Ns Inj) 1,000 mls @ 0 mls/hr IV.CONT .Q0M PRN PRN Reason: hypotension / volume replace Vasopressin 40 unit/ Dextrose 100 mls @ 6 mls/hr IV.CONT CONT [facility]; Protocol Last Infusion: 06/01/18 19:33 Dose: Infused Lactic Acid (Lac-Hydrin 12% Lotion) 1 applicatio TOPICAL BID [facility] Last Admin: 06/27/18 09:57 Dose: 1 applicatio Lactulose (Lactulose Liq) 30 ml PO BID [facility] Last Admin: 06/27/18 09:55 Dose: 30 ml Naloxone HCl (Narcan Inj) 0.4 mg IV.PUSH UNSCH PRN PRN Reason: SEE LABEL COMMENTS Naloxone HCl (Narcan Inj) 0.4 mg IV.PUSH UNSCH PRN PRN Reason: SEE LABEL COMMENTS Nicotine (Habitrol 14 Mg Patch.24 Hr) 1 patch T-DERMAL DAILY [facility] Last Admin: 06/27/18 09:58 Dose: 1 patch Nitroglycerin (Nitrostat Sl) 0.4 mg SL Q5M PRN PRN Reason: CHEST PAIN Ondansetron HCl (Zofran Inj) 4 mg IV.PUSH Q6H PRN PRN Reason: NAUSEA OR VOMITING Last Admin: 05/30/18 20:46 Dose: 4 mg Ondansetron HCl (Zofran Inj) 4 mg IV.PUSH UNSCH PRN PRN Reason: NAUSEA OR VOMITING Pantoprazole Sodium (Protonix) 40 mg PO DAILY [facility] Last Admin: 06/27/18 09:55 Dose: 40 mg Patch Removal (Remove Old Patch) 1 each T-DERMAL DAILY [facility] Last Admin: 06/27/18 10:01 Dose: 1 each Polyethylene Glycol (Miralax) 17 gm PO BID [facility] Last Admin: 06/27/18 09:54 Dose: 17 gm Senna/Docusate Sodium (Najma-Colace) 1 tab PO BID [facility] Last Admin: 06/27/18 09:55 Dose: 1 tab Sennosides (Senokot) 17.2 mg PO Q12H PRN PRN Reason: Moderate Constipation Sodium Chloride (Ns Flush) 5 ml IV.FLUSH PRN PRN PRN Reason: flush each lumen during HD Sodium Chloride (Ns Flush) 2 ml IV.FLUSH UNSCH PRN PRN Reason: FLUSH AFTER USING IV ACCESS Terbutaline Sulfate (Brethine Inj) 1 mg SQ UNSCH PRN PRN Reason: For Extravasation Thiamine HCl (Vitamin B1) 100 mg PO DAILY [facility] Last Admin: 06/27/18 09:55 Dose: 100 mg Zolpidem Tartrate (Ambien) 5 mg PO HS PRN PRN Reason: INSOMNIA Last Admin: 06/01/18 01:51 Dose: 5 mg Allergies Allergy/AdvReac Type Severity Reaction Status Date / Time Jjaxnin-Vtj-Kge Reductase AdvReac Urinary Verified 06/05/18 16:04 Inhibitor Freq (Inc/Dec) Home Medications Medication Instructions Recorded Confirmed Type atorvastatin 80 mg PO DAILY 04/30/18 05/26/18 History lisinopril 10 mg PO DAILY 04/30/18 05/26/18 History Physical Exam Vital signs: Vital Signs 06/26/18 12:00 06/26/18 16:00 06/26/18 20:00 Temperature 97.4 F L 98.8 F 98.6 F Pulse Rate 84 71 105 H Respiratory Rate 18 18 Blood Pressure 131/93 H 123/72 108/72 Pulse Oximetry 99 97 96 06/27/18 00:00 06/27/18 04:00 06/27/18 07:55 Temperature 97.8 F 98 F 98.1 F Pulse Rate 118 H 92 H 87 Respiratory Rate 18 Blood Pressure 132/60 128/63 121/69 Pulse Oximetry 96 96 98 Intake & Output 06/26/18 06/27/18 06/27/18 18:59 06:59 18:59 Intake Total 700 / 700 465 / 465 Output Total 700 / 700 Balance 0 / 0 465 / 465 Weight 95.3 kg Intake: Oral 700 / 700 465 / 465 Output: Urine 700 / 700 Other: Date of Last Bowel Movement 06/26/18 - Constitutional no acute distress - Routine HEENT Exam Head: Present: normocephalic, atraumatic - Routine Neck Exam Present: supple, full ROM - Routine Respiratory Exam Present: CTA bilaterally - Routine Cardiovascular Exam Present: S1, S2 - Routine Abdominal Exam Present: soft - Routine Extremities Exam Comments: no richard - Urinary Catheter Management Indwelling Urethral Catheter Cath placed during this visit: yes, but has since been removed by the nurse Reason for continuing: Decision to DC catheter Insertion date: 05/28/18 Insertion time: 13:30 Removal date: 05/29/18 Removal time: 16:15 Results 06/27/18 08:21 06/27/18 08:21 Cardiac Enzymes 06/27/18 Range/Units 08:21 AST 35 (15-37) U/L CBC 06/26/18 06/27/18 Range/Units 07:36 08:21 WBC 4.9 6.0 (4.0-11.0) th/mm3 RBC 2.14 L 2.16 L (4.50-5.90) mil/mm3 Hgb 7.8 L 7.9 L (13.0-17.0) gm/dL Hct 23.4 L 23.7 L (39.0-51.0) % Plt Count 208 220 (150-450) th/mm3 Neut # (Auto) 3.2 3.7 (1.8-7.7) th/mm3 Lymph # (Auto) 0.9 L 1.3 (1.0-4.8) th/mm3 [place] # (Auto) 0.4 0.3 (0.0-0.9) th/mm3 Eos # (Auto) 0.4 0.6 H (0.0-0.4) th/mm3 Baso # (Auto) 0.1 0.1 (0.0-0.2) th/mm3 Comprehensive Metabolic Panel 06/27/18 Range/Units 08:21 Sodium 140 (136-145) meq/L Potassium 3.8 (3.5-5.1) meq/L Chloride 100 (98-107) meq/L Carbon Dioxide 29.2 (21.0-32.0) meq/L BUN 32 H (7-18) mg/dL Creatinine 3.66 H (0.60-1.30) mg/dL Calcium 8.6 (8.5-10.1) mg/dL AST 35 (15-37) U/L ALT 33 (12-78) U/L Alkaline Phosphatase 91 (45-117) U/L Total Protein 7.4 (6.4-8.2) g/dL Albumin 3.1 L (3.4-5.0) g/dL Intake and Output 06/26/18 06/27/18 06/27/18 22:59 06:59 14:59 Intake Total 700 / 700 465 / 465 Output Total 700 / 700 Balance 0 / 0 465 / 465 Intake: Oral 700 / 700 465 / 465 Output: Urine 700 / 700 Other: Date of Last Bowel Movement 06/26/18 Weight 95.3 kg Assessment and Plan - Assessment (1) Thrombocytopenia Code(s): D69.6 - Thrombocytopenia, unspecified Status: Acute (2) Anemia Code(s): D64.9 - Anemia, unspecified Status: Acute (3) Leukemia Code(s): C95.90 - Leukemia, unspecified not having achieved remission Status: Acute (4) NSTEMI (non-ST elevated myocardial infarction) Code(s): I21.4 - Non-ST elevation (NSTEMI) myocardial infarction Status: Acute (5) Tobacco abuse Code(s): Z72.0 - Tobacco use Status: Acute (6) RADHA (acute kidney injury) Code(s): N17.9 - Acute kidney failure, unspecified Status: Acute (7) ETOH abuse Code(s): F10.10 - Alcohol abuse, uncomplicated Status: Acute (8) Metabolic acidosis Code(s): E87.2 - Acidosis Status: Acute (9) Diverticulitis Code(s): K57.92 - Diverticulitis of intestine, part unspecified, without perforation or abscess without bleeding Status: Acute (10) Acute renal failure Code(s): N17.9 - Acute kidney failure, unspecified Status: Acute (11) Transaminitis Code(s): R74.0 - Nonspecific elevation of levels of transaminase and lactic acid dehydrogenase [LDH] Status: Acute (12) Alcohol abuse Code(s): F10.10 - Alcohol abuse, uncomplicated Status: Acute - Plan 1.) NSTEMI - suspect trop elevation due to arf which appears to be due to rhabdomyolysis, plain treadmill test 06/25/18 negative for ischemia 2.) Afib - 2d echo ef=50%, [id number] score=1, male gender, ac held due to unstable platelet count, hgb and liver function, continue to f/u trends in lfts , hgb, plt ct; rash started @ time aspirin 81 mg qd started 06/01/18, will dc aspirin and start plavix 75 mg qd, 06/05/18, no improvement in rash, i explained to patient that if due to aspirin may take several days for plasma levels of aspirin to decrease and to see improvement if rash is due to aspirin, ; not good candidate for ac with noac or coumadin due to alcohol abuse, liver failure , fall risk and unstable hgb and platelet count 3.) Respiratory failure - ef=50% on echo, assymptomatic 05/27/18, possibly due to volume overload from arf, improved with dialysis 4.) Rash - improved (10) Acute renal failure Qualifiers: Acute renal failure type: unspecified Qualified Code(s): N17.9 - Acute kidney failure, unspecified
[2018-06-28] MEDS: Oral Hygiene Kit OROPHARYNG SCH ×4 (00:03→17:11)
[2018-06-28] MEDS: Heparin - SQ 10,000 UNITS/ML Vial SQ SCH ×2 (05:40→13:18)
[2018-06-28] MEDS: Chlorhexidine 0.12% Oral Kit 15 ML UDC OROPHARYNG SCH ×2 (08:19→20:55)
[2018-06-28] MEDS: Polyethylene Glycol 3350 17 GM Packet PO SCH ×2 (08:20→20:55)
[2018-06-28] MEDS: Famotidine 20 MG Tablet PO SCH ×2 (08:24→21:00)
[2018-06-28] MEDS: Hydrocortisone Acetate 25 MG Supp RECTAL SCH ×3 (08:25→18:00)
[2018-06-28] MEDS: Lactic Acid (Ammonium Lactate) 12% Lotion 225 GM Bottle TOPICAL SCH (08:25)
[2018-06-28] MEDS: Calcium Acetate 667 MG Capsule PO SCH ×3 (08:25→18:00)
[2018-06-28] MEDS: Senna/Docusate Sodium 8.6/50 MG Tablet PO SCH ×2 (08:25→21:00)
[2018-06-28 08:26] LABS: Baso # (Auto) 0.1 th/mm3 (0.0-0.2); Baso % (Auto) 1.4 % (0.0-2.0); Eos # (Auto) 0.7 th/mm3 (0.0-0.4); Eos % (Auto) 11.4 % (0.0-4.0); Hematocrit 23.7 % (39.0-51.0); Hemoglobin 7.9 gm/dL (13.0-17.0); Lymph # (Auto) 1.1 th/mm3 (1.0-4.8); Lymph % (Auto) 18.5 % (9.0-44.0); Mean Corpuscular HGB Conc 33.3 % (32.0-36.0); Mean Corpuscular Hemoglobin 36.5 pg (27.0-34.0); Mean Corpuscular Volume 109.5 fL (80.0-100.0); Mean Platelet Volume 8.1 fL (7.0-11.0); Mono # (Auto) 0.4 th/mm3 (0.0-0.9); Mono % (Auto) 7.3 % (0.0-8.0); Neut # (Auto) 3.6 th/mm3 (1.8-7.7); Neut % (Auto) 61.4 % (16.0-70.0); Platelet Count 219 th/mm3 (150-450); Red Blood Count 2.17 mil/mm3 (4.50-5.90); Red Cell Distribution Width 15.8 % (11.6-17.2); White Blood Count 5.8 th/mm3 (4.0-11.0)
[2018-06-28 08:35] LABS: Alanine Aminotransferase 32 U/L (12-78); Albumin 3.1 g/dL (3.4-5.0); Anion Gap 11 meq/L (5-15); Aspartate Aminotransferase 35 U/L (15-37); Blood Urea Nitrogen 29 mg/dL (7-18); Calcium 8.8 mg/dL (8.5-10.1); Carbon Dioxide 27.2 meq/L (21.0-32.0); Chloride 103 meq/L (98-107); Glomerular Filtration Rate 22 mL/min (>89); Glucose,Random 91 mg/dL (74-106); Potassium 3.9 meq/L (3.5-5.1); Sodium 141 meq/L (136-145)
[2018-06-28 08:38] LABS: Alkaline Phosphatase 86 U/L (45-117); Total Protein 7.4 g/dL (6.4-8.2)
--- NOTE | 2018-06-28 09:47 | P.PN ---
Subjective Interval history: Follow-up visit acute renal failure, rhabdomyolysis, A. fib, anemia. Patient seen and examined today. Ports he is doing well plan for removal of vascular access tomorrow. Otherwise he complains of bilateral foot dry skin, reports rash throughout his body has improved. States he does not know if he could comply on fluid restriction because he felt he is dehydrated. Denies pain and discomfort. Denies SOB/ dyspnea. Denies chest pain, dizziness. Denies fevers, chills, n/v/d. Denies dysuria. Physical Exam Vital signs: Vital Signs 06/27/18 12:00 06/27/18 16:00 06/27/18 20:00 Temperature 98.6 F 99.0 F 98.4 F Pulse Rate 86 98 H 86 Respiratory Rate 20 20 18 Blood Pressure 130/83 121/70 132/83 Pulse Oximetry 96 98 96 06/28/18 00:00 06/28/18 02:57 06/28/18 04:00 Temperature 97.9 F 97.4 F L Pulse Rate 93 H 81 Respiratory Rate 18 18 18 Blood Pressure 117/68 150/84 H Pulse Oximetry 100 95 06/28/18 08:00 Temperature 98.3 F Pulse Rate 87 Respiratory Rate 20 Blood Pressure 111/64 Pulse Oximetry 98 Intake & Output 06/27/18 06/28/18 06/28/18 18:59 06:59 18:59 Weight 95.3 kg Other: # Voids 1 Date of Last Bowel Movement 06/26/18 06/27/18 # Bowel Movements 1 Narrative: GENERAL: Well-nourished male, in NAD, sitting comfortably in chair SKIN: Warm and dry. +PermCath in right IJ. HEENT: Normocephalic, atraumatic, PERRLA. No scleral icterus. No injection or drainage. No nasal bleeding or discharge. MOM. NECK: Trachea midline. CARDIOVASCULAR: Regular rate and rhythm. S1 and S2, no murmurs, rubs, or gallops. RESPIRATORY: CTAx2 GASTROINTESTINAL: Abdomen soft, non-tender, nondistended. +BS. MUSCULOSKELETAL: Extremities without clubbing or cyanosis. Trace BL LE edema. NEUROLOGICAL: Awake and alert. No obvious cranial nerve deficits. Motor grossly within normal limits. Able to move all extremities spontaneously. Normal speech. PSYCHIATRIC: Calm and cooperative. - Urinary Catheter Management Indwelling Urethral Catheter Cath placed during this visit: yes, but has since been removed by the nurse Reason for continuing: Decision to DC catheter Insertion date: 05/28/18 Insertion time: 13:30 Removal date: 05/29/18 Removal time: 16:15 Results - Labs CBC & Chem 7: 06/28/18 06:14 06/28/18 06:14 Laboratory Results - last 24 hr 06/27/18 06/27/18 06/28/18 08:21 08:21 06:14 WBC 6.0 5.8 RBC 2.16 L 2.17 L Hgb 7.9 L 7.9 L Hct 23.7 L 23.7 L MCV 109.8 H 109.5 H MCH 36.5 H 36.5 H MCHC 33.2 33.3 RDW 15.5 15.8 Plt Count 220 219 MPV 8.4 8.1 Neut % (Auto) 61.7 61.4 Lymph % (Auto) 21.6 18.5 [place] % (Auto) 5.6 7.3 Eos % (Auto) 9.7 H 11.4 H Baso % (Auto) 1.4 1.4 Neut # (Auto) 3.7 3.6 Lymph # (Auto) 1.3 1.1 [place] # (Auto) 0.3 0.4 Eos # (Auto) 0.6 H 0.7 H Baso # (Auto) 0.1 0.1 WBC Differential . . Differential Comment Auto diff final Auto diff final Sodium 140 Potassium 3.8 Chloride 100 Carbon Dioxide 29.2 Anion Gap 11 BUN 32 H Creatinine 3.66 H Estimated GFR 17 L Random Glucose 166 H Calcium 8.6 Total Bilirubin 0.4 AST 35 ALT 33 Alkaline Phosphatase 91 Total Protein 7.4 Albumin 3.1 L 06/28/18 06:14 WBC RBC Hgb Hct MCV MCH MCHC RDW Plt Count MPV Neut % (Auto) Lymph % (Auto) [place] % (Auto) Eos % (Auto) Baso % (Auto) Neut # (Auto) Lymph # (Auto) [place] # (Auto) Eos # (Auto) Baso # (Auto) WBC Differential Differential Comment Sodium 141 Potassium 3.9 Chloride 103 Carbon Dioxide 27.2 Anion Gap 11 BUN 29 H Creatinine 3.05 H Estimated GFR 22 L Random Glucose 91 Calcium 8.8 Total Bilirubin 0.5 AST 35 ALT 32 Alkaline Phosphatase 86 Total Protein 7.4 Albumin 3.1 L - Procedures 53-year-old male with acute hypoxic and hypercarbic respiratory failure and acute severe metabolic encephalopathy with associated multiorgan failure including renal failure and liver failure. Patient initially required intubation /ICU care; he has since stabilized and transferred to hospitalist service: 06/16: No significant changes to medical plan. Renal Acute renal failure secondary to rhabdomyolysis from statin. No obstruction. Significant proteinuria. Serology negative. Mild CKD at baseline prior to acute injury. Dialysis started 05/27 -Nephrology consulted -Continue dialysis -s/p dialysis 06/16 -monitor urine output -hold Lisinopril, other nephrotoxins Respiratory Acute hypoxic and hypercarbic respiratory failure: Status post intubation and extubation. Echo with EF 50%; suspected failure from ARF - Supplemental oxygen as needed. - Breathing treatments as needed. -Dialysis as below Cardiovascular Elevated troponin Atrial fibrillation Impression: Cardiology consulted. Echo- EF 50%. [id number] 1. Determined anticoagulation risk high for multiple risks -Continue Plavix -Continue to monitor labs/platelet count Statin induced rhabdomyolysis -Ongoing hemodialysis as above. -Continue to trend CK levels. Alcohol dependence: - Off CIWI protocol. - No signs of withdrawal currently Acute liver failure Impression: Downtrending LFT's. Transaminases >1000 05/26 ----> less than 100 . - Follow LFTs. -s/p lactulose (Ammonia <10 06/04) Acute diverticulitis/rectal pain Impression: 05/26 A/P CT with sigmoid diverticulitis. no reported recent symptoms. Cipro/Flagyl stopped -Continue to monitor Rash: Probable drug reaction: Cipro and Flagyl previously discontinued. Benadryl as needed. Continue Zyrtec and Pepcid. Tobacco dependence -Nicotine patch given DVT PPX Heparin 5K U q8hrs Code Status: Full code Discharge Planning: Pending renal improvement/Nephrology recommendations Assessment and Plan - Assessment (1) RADHA (acute kidney injury) Code(s): N17.9 - Acute kidney failure, unspecified Status: Acute (2) Acute renal failure Code(s): N17.9 - Acute kidney failure, unspecified Status: Acute (3) Transaminitis Code(s): R74.0 - Nonspecific elevation of levels of transaminase and lactic acid dehydrogenase [LDH] Status: Acute (4) Alcohol abuse Code(s): F10.10 - Alcohol abuse, uncomplicated Status: Acute (5) Rhabdomyolysis due to statin therapy Code(s): M62.82 - Rhabdomyolysis Status: Acute (6) NSTEMI (non-ST elevated myocardial infarction) Code(s): I21.4 - Non-ST elevation (NSTEMI) myocardial infarction Status: Acute - Plan 53-year-old male with acute hypoxic and hypercarbic respiratory failure and acute severe metabolic encephalopathy with associated multiorgan failure including renal failure and liver failure. Patient initially required intubation /ICU care; he has since stabilized and transferred to hospitalist service Acute Renal Failure secondary to rhabdomyolysis from statin, Improving Creatinine 3.66 today from 5.05 Mild CKD at baseline prior to acute injury. Baseline Cr 1.5-1.6 Dialysis started 05/27 Patient is non oliguric -Nephrology following, appreciate assistance. Last dialysis 06/21. Continue fluid restricted diet. Reinforced restrictions. Per neuro patient has underlying CKD, baseline creatinine 1.5-1.6. AK I is possibly due to rhabdomyolysis. Avoid nephrotoxic agents. Renal function appears to be improving. No need for dialysis. PermCath can be removed. Follow-up and outpatient -Bumex discontinued per Nephro reccs -Plan to remove PermCath jerardo. Per IR, must be off Plavix for 5 days, Plavix held, plan to remove on 06/29. -Discussed with Dr. Velazquez, recommends patient stay in the hospital until permacath removed. -Continue to hold Lisinopril, avoid other nephrotoxins -F/U BMP in AM Acute Hypoxic and Hypercarbic respiratory failure, resolved Status post intubation and extubation -Echo with EF 50%; suspected failure from ARF -Oxygen and Albuterol PRN Atrial Fibrillation/NSTEMI -Cardiology consulted. Echo with EF 50%. [id number] 1. Not good candidate for ac with noac or coumadin due to alcohol abuse, liver failure, fall risk and unstable hgb and platelet count. NSTEMI, suspect trop elevation due to arf which appears to be due to rhabdomyolysis, plain treadmill test 06/25/18 negative for ischemia. -Continue Plavix - hold for procedure -Stress test completed, no ischemia Alcohol Dependence No signs of withdrawal currently Off of CIWA Acute liver failure, resolved -Cont. Thiamine/MV -Counselled -LFT's WNL today Acute diverticulitis/rectal pain/hemorrhoids -05/[address] with sigmoid diverticulitis, no reported recent symptoms, Cipro/ Flagyl stopped -GI consulted, appreciate assistance. Continue rectal HC supp TID. F/U with GI at discharge. Rash, resolved, probable drug reaction -Cipro and Flagyl previously discontinued. Benadryl as needed. Continue Zyrtec and Pepcid. Anemia, Macrocytic -No evidence of bleeding -Iron 51, TIBC 19.7, ferritin 432, B12 722 -Monitor CBC as indicated Tobacco dependence -Nicotine patch given -Counselled GERD: Cont. PPI DVT PPX: Heparin Code Status: Full code Discussed Condition With: Patient, nurse Discharge Planning: Pending Permacath removal on 06/29. Plan to DC home tomorrow after permacath removal (2) Acute renal failure Qualifiers: Acute renal failure type: unspecified Qualified Code(s): N17.9 - Acute kidney failure, unspecified
--- NOTE | 2018-06-28 14:36 | P.PNCA ---
Subjective Interval history: assymptomatic in nad Medications and Allergies Active Medications: Active Medications Acetaminophen (Tylenol) 650 mg PO Q4H PRN PRN Reason: Temp > 100.4 Acetaminophen (Tylenol) 650 mg PO UNSCH PRN PRN Reason: SEE LABEL COMMENTS Acetaminophen (Tylenol) 500 mg PO Q6H PRN PRN Reason: PAIN 1-6 Hydrocodone Bitart/Acetaminophen ([place] 7.5/325) 1 tab PO Q6H PRN PRN Reason: PAIN SCALE 6 TO 10 Last Admin: 06/28/18 12:12 Dose: 1 tab Al Hydroxide/Mg Hydroxide (Milk Of Michael Zambrano) 30 ml PO Q12H PRN PRN Reason: Mild Constipation Albuterol (Duoneb Neb (Prn)) 1 ampul NEB Q2HR NEB PRN PRN Reason: WHEEZING Bisacodyl (Dulcolax Supp) 10 mg RECTAL DAILY PRN PRN Reason: if no BM in last 24h Last Admin: 06/10/18 05:49 Dose: 10 mg Calcium Acetate (Phoslo) 667 mg PO TID [facility] Last Admin: 06/28/18 12:13 Dose: 667 mg Cetirizine HCl (Zyrtec) 10 mg PO BID [facility] Last Admin: 06/28/18 08:25 Dose: 10 mg Chlorhexidine Gluconate (Peridex 0.12% Oral Kit) 15 ml OROPHARYNG BID@0800, 2000 [facility] Last Admin: 06/28/18 08:19 Dose: Not Given Clopidogrel Bisulfate (Plavix) 75 mg PO DAILY [facility] Last Admin: 06/24/18 08:03 Dose: 75 mg Diphenhydramine HCl (Benadryl) 25 mg PO Q4H PRN PRN Reason: ITCHING Last Admin: 06/26/18 00:33 Dose: 25 mg Diphenhydramine HCl (Benadryl) 50 mg PO Q6H PRN PRN Reason: ITCHING Last Admin: 06/27/18 21:55 Dose: 50 mg Diphenhydramine HCl (Benadryl Inj) 50 mg IV.PUSH Q6H PRN PRN Reason: ITCHING Last Admin: 06/19/18 15:51 Dose: 50 mg Famotidine (Pepcid) 10 mg PO BID [facility] Last Admin: 06/28/18 08:24 Dose: 10 mg Gelatin (Gelfoam 12 Mm/7 Mm Topical) 1 foam TOPICAL PRN PRN PRN Reason: help stop bleeding from site Gentamicin Sulfate (Gentamicin Inj) 20 mg OTHER WITH DIALYSIS PRN PRN Reason: Dwell Gentamycin Lock Last Admin: 06/21/18 09:57 Dose: 20 mg Heparin Sodium (Porcine) (Heparin Inj) 5,000 units SQ Q8HR [facility]I Last Admin: 06/28/18 13:18 Dose: Not Given Heparin Sodium (Porcine) (Heparin Inj) 8,000 units OTHER WITH DIALYSIS PRN PRN Reason: for machine prime Last Admin: 06/04/18 12:39 Dose: 3,500 units Heparin Sodium (Porcine) (Heparin Inj) 1,000 units OTHER WITH DIALYSIS PRN PRN Reason: Dwell Heparin to Fill Catheter Last Admin: 06/21/18 09:56 Dose: 1,000 units Hydrocortisone Acetate (Hemorrhoidal Hc Supp) 25 mg RECTAL TID [facility] Last Admin: 06/28/18 12:56 Dose: 25 mg Hydrocortisone Acetate (Hydrocortisone 1% Cream) 1 applicatio TOPICAL TID PRN PRN Reason: RASH Last Admin: 06/25/18 10:00 Dose: 1 applicatio Albumin Human (Flexbumin 25% Inj) 100 mls @ 60 mls/hr IV.SIG WITH DIALYSIS PRN PRN Reason: hypotension / volume replace Last Infusion: 06/16/18 09:02 Dose: Infused Sodium Chloride (Ns Inj) 1,000 mls @ 0 mls/hr OTHER .Q0M PRN PRN Reason: for prime and rinse back Sodium Chloride (Ns Inj) 1,000 mls @ 200 mls/hr OTHER .Q5H PRN PRN Reason: for dialyzer flush PRN Sodium Chloride (Ns Inj) 1,000 mls @ 0 mls/hr IV.CONT .Q0M PRN PRN Reason: hypotension / volume replace Vasopressin 40 unit/ Dextrose 100 mls @ 6 mls/hr IV.CONT CONT [facility]; Protocol Last Infusion: 06/01/18 19:33 Dose: Infused Lactic Acid (Lac-Hydrin 12% Lotion) 1 applicatio TOPICAL BID [facility] Last Admin: 06/28/18 08:25 Dose: 1 applicatio Lactulose (Lactulose Liq) 30 ml PO BID [facility] Last Admin: 06/28/18 08:20 Dose: Not Given Naloxone HCl (Narcan Inj) 0.4 mg IV.PUSH UNSCH PRN PRN Reason: SEE LABEL COMMENTS Naloxone HCl (Narcan Inj) 0.4 mg IV.PUSH UNSCH PRN PRN Reason: SEE LABEL COMMENTS Nicotine (Habitrol 14 Mg Patch.24 Hr) 1 patch T-DERMAL DAILY [facility] Last Admin: 06/28/18 08:25 Dose: 1 patch Nitroglycerin (Nitrostat Sl) 0.4 mg SL Q5M PRN PRN Reason: CHEST PAIN Ondansetron HCl (Zofran Inj) 4 mg IV.PUSH Q6H PRN PRN Reason: NAUSEA OR VOMITING Last Admin: 05/30/18 20:46 Dose: 4 mg Ondansetron HCl (Zofran Inj) 4 mg IV.PUSH UNSCH PRN PRN Reason: NAUSEA OR VOMITING Pantoprazole Sodium (Protonix) 40 mg PO DAILY [facility] Last Admin: 06/28/18 08:25 Dose: 40 mg Patch Removal (Remove Old Patch) 1 each T-DERMAL DAILY [facility] Last Admin: 06/28/18 08:25 Dose: 1 each Polyethylene Glycol (Miralax) 17 gm PO BID [facility] Last Admin: 06/28/18 08:20 Dose: Not Given Senna/Docusate Sodium (Najma-Colace) 1 tab PO BID [facility] Last Admin: 06/28/18 08:25 Dose: 1 tab Sennosides (Senokot) 17.2 mg PO Q12H PRN PRN Reason: Moderate Constipation Sodium Chloride (Ns Flush) 5 ml IV.FLUSH PRN PRN PRN Reason: flush each lumen during HD Sodium Chloride (Ns Flush) 2 ml IV.FLUSH UNSCH PRN PRN Reason: FLUSH AFTER USING IV ACCESS Terbutaline Sulfate (Brethine Inj) 1 mg SQ UNSCH PRN PRN Reason: For Extravasation Thiamine HCl (Vitamin B1) 100 mg PO DAILY [facility] Last Admin: 06/28/18 08:25 Dose: 100 mg Zolpidem Tartrate (Ambien) 5 mg PO HS PRN PRN Reason: INSOMNIA Last Admin: 06/01/18 01:51 Dose: 5 mg Allergies Allergy/AdvReac Type Severity Reaction Status Date / Time Flvuuch-Rft-Zhi Reductase AdvReac Urinary Verified 06/05/18 16:04 Inhibitor Freq (Inc/Dec) Home Medications Medication Instructions Recorded Confirmed Type atorvastatin 80 mg PO DAILY 04/30/18 05/26/18 History lisinopril 10 mg PO DAILY 04/30/18 05/26/18 History Physical Exam Vital signs: Vital Signs 06/27/18 16:00 06/27/18 20:00 06/28/18 00:00 Temperature 99.0 F 98.4 F 97.9 F Pulse Rate 98 H 86 93 H Respiratory Rate 20 18 18 Blood Pressure 121/70 132/83 117/68 Pulse Oximetry 98 96 100 06/28/18 02:57 06/28/18 04:00 06/28/18 08:00 Temperature 97.4 F L 98.3 F Pulse Rate 81 87 Respiratory Rate 18 18 18 Blood Pressure 150/84 H 111/64 Pulse Oximetry 95 98 06/28/18 12:00 Temperature 97.1 F L Pulse Rate 90 Respiratory Rate 20 Blood Pressure 136/78 Pulse Oximetry 98 Intake & Output 06/27/18 06/28/18 06/28/18 18:59 06:59 18:59 Intake Total 720 / 720 Output Total 4 / 4 Balance 716 / 716 Weight 95.3 kg Intake: Oral 720 / 720 Output: Urine 4 / 4 Other: # Voids 1 Date of Last Bowel Movement 06/26/18 06/27/18 06/27/18 # Bowel Movements 1 - Constitutional no acute distress - Routine HEENT Exam Head: Present: normocephalic, atraumatic - Routine Neck Exam Present: supple - Routine Respiratory Exam Present: CTA bilaterally - Routine Cardiovascular Exam Present: S1, S2 - Routine Abdominal Exam Present: soft - Routine Extremities Exam Comments: no richard - Urinary Catheter Management Indwelling Urethral Catheter Cath placed during this visit: yes, but has since been removed by the nurse Reason for continuing: Decision to DC catheter Insertion date: 05/28/18 Insertion time: 13:30 Removal date: 05/29/18 Removal time: 16:15 Results 06/28/18 06:14 06/28/18 06:14 Cardiac Enzymes 06/27/18 06/28/18 Range/Units 08:21 06:14 AST 35 35 (15-37) U/L CBC 06/27/18 06/28/18 Range/Units 08:21 06:14 WBC 6.0 5.8 (4.0-11.0) th/mm3 RBC 2.16 L 2.17 L (4.50-5.90) mil/mm3 Hgb 7.9 L 7.9 L (13.0-17.0) gm/dL Hct 23.7 L 23.7 L (39.0-51.0) % Plt Count 220 219 (150-450) th/mm3 Neut # (Auto) 3.7 3.6 (1.8-7.7) th/mm3 Lymph # (Auto) 1.3 1.1 (1.0-4.8) th/mm3 [place] # (Auto) 0.3 0.4 (0.0-0.9) th/mm3 Eos # (Auto) 0.6 H 0.7 H (0.0-0.4) th/mm3 Baso # (Auto) 0.1 0.1 (0.0-0.2) th/mm3 Comprehensive Metabolic Panel 06/27/18 06/28/18 Range/Units 08:21 06:14 Sodium 140 141 (136-145) meq/L Potassium 3.8 3.9 (3.5-5.1) meq/L Chloride 100 103 (98-107) meq/L Carbon Dioxide 29.2 27.2 (21.0-32.0) meq/L BUN 32 H 29 H (7-18) mg/dL Creatinine 3.66 H 3.05 H (0.60-1.30) mg/dL Calcium 8.6 8.8 (8.5-10.1) mg/dL AST 35 35 (15-37) U/L ALT 33 32 (12-78) U/L Alkaline Phosphatase 91 86 (45-117) U/L Total Protein 7.4 7.4 (6.4-8.2) g/dL Albumin 3.1 L 3.1 L (3.4-5.0) g/dL Intake and Output 06/27/18 06/28/18 06/28/18 22:59 06:59 14:59 Intake Total 720 / 720 Output Total 4 / 4 Balance 716 / 716 Intake: Oral 720 / 720 Output: Urine / Other: # Voids 1 Date of Last Bowel Movement 06/27/18 06/27/18 # Bowel Movements 1 Weight 95.3 kg Assessment and Plan - Assessment (1) Thrombocytopenia Code(s): D69.6 - Thrombocytopenia, unspecified Status: Acute (2) Anemia Code(s): D64.9 - Anemia, unspecified Status: Acute (3) Leukemia Code(s): C95.90 - Leukemia, unspecified not having achieved remission Status: Acute (4) NSTEMI (non-ST elevated myocardial infarction) Code(s): I21.4 - Non-ST elevation (NSTEMI) myocardial infarction Status: Acute (5) Tobacco abuse Code(s): Z72.0 - Tobacco use Status: Acute (6) RADHA (acute kidney injury) Code(s): N17.9 - Acute kidney failure, unspecified Status: Acute (7) ETOH abuse Code(s): F10.10 - Alcohol abuse, uncomplicated Status: Acute (8) Metabolic acidosis Code(s): E87.2 - Acidosis Status: Acute (9) Diverticulitis Code(s): K57.92 - Diverticulitis of intestine, part unspecified, without perforation or abscess without bleeding Status: Acute (10) Acute renal failure Code(s): N17.9 - Acute kidney failure, unspecified Status: Acute (11) Transaminitis Code(s): R74.0 - Nonspecific elevation of levels of transaminase and lactic acid dehydrogenase [LDH] Status: Acute (12) Alcohol abuse Code(s): F10.10 - Alcohol abuse, uncomplicated Status: Acute - Plan 1.) NSTEMI - suspect trop elevation due to arf which appears to be due to rhabdomyolysis, plain treadmill test 06/25/18 negative for ischemia 2.) Afib - 2d echo ef=50%, [id number] score=1, male gender, ac held due to unstable platelet count, hgb and liver function, continue to f/u trends in lfts , hgb, plt ct; rash started @ time aspirin 81 mg qd started 06/01/18, will dc aspirin and start plavix 75 mg qd, 06/05/18, no improvement in rash, i explained to patient that if due to aspirin may take several days for plasma levels of aspirin to decrease and to see improvement if rash is due to aspirin, ; not good candidate for ac with noac or coumadin due to alcohol abuse, liver failure , fall risk and unstable hgb and platelet count 3.) Respiratory failure - ef=50% on echo, assymptomatic 05/27/18, possibly due to volume overload from arf, improved with dialysis 4.) Rash - improved (10) Acute renal failure Qualifiers: Acute renal failure type: unspecified Qualified Code(s): N17.9 - Acute kidney failure, unspecified
[2018-06-29] MEDS: Heparin - SQ 10,000 UNITS/ML Vial SQ SCH ×2 (00:37→07:10)
[2018-06-29] MEDS: Oral Hygiene Kit OROPHARYNG SCH ×3 (00:37→11:20)
[2018-06-29] MEDS: Lactic Acid (Ammonium Lactate) 12% Lotion 225 GM Bottle TOPICAL SCH ×2 (00:37→08:10)
[2018-06-29] MEDS: Chlorhexidine 0.12% Oral Kit 15 ML UDC OROPHARYNG SCH (07:38)
[2018-06-29] MEDS: Polyethylene Glycol 3350 17 GM Packet PO SCH (08:09)
[2018-06-29] MEDS: Calcium Acetate 667 MG Capsule PO SCH (08:09)
[2018-06-29] MEDS: Hydrocortisone Acetate 25 MG Supp RECTAL SCH ×2 (08:10→12:11)
[2018-06-29] MEDS: Senna/Docusate Sodium 8.6/50 MG Tablet PO SCH (08:10)
[2018-06-29] MEDS: Famotidine 20 MG Tablet PO SCH (08:10)
--- NOTE | 2018-06-29 08:15 | P.DS ---
Date of admission: 05/26/18 12:56 Primary care physician: [facility] Attending physician on discharge: Vianey Dobbs Anticipated date of discharge: 06/29/18 Brief History from admission: Patient is a 53-year-old male who presented to the hospital with complaints of nausea and vomiting and diarrhea as well as rectal pain due to his hemorrhoids. He states this been happening for the past couple of days to a week. He is also a daily alcohol drinker. Was seen here on May 19 for sigmoid diverticulitis. He is a smoker and drinks daily. 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 Was also found to have elevated LFTs and to be in renal failure. Therefore patient will be admitted and will be treated for the diverticulitis, the renal failure, and the rectal pain. His lisinopril and Lipitor will both be held. We will consult nephrology. Patient is also noted to have elevated troponins. Suspect secondary to the renal failure. But will consult cardiology and get an echocardiogram. We will also trend troponins and cardiac enzymes Has already had an ultrasound of his kidneys bilaterally Patient update on day of discharge: Follow-up visit acute renal failure, rhabdomyolysis, A. fib, anemia. Patient seen and examined today. Plan for port removal and then DC today. Discuss compliance and follow up appointment. Denies pain and discomfort. Denies SOB/ dyspnea. Denies chest pain, dizziness. Denies fevers, chills, n/v/d. Denies dysuria. DS: Diagnosis - Discharge Diagnosis (1) RADHA (acute kidney injury) Status: Acute (2) Acute renal failure Status: Acute (3) Transaminitis Status: Acute (4) Alcohol abuse Status: Acute (5) Rhabdomyolysis due to statin therapy Status: Acute (6) NSTEMI (non-ST elevated myocardial infarction) Status: Acute DS: Medications - Discharge Medications Prescriptions: clopidogrel [Plavix] 75 mg PO DAILY #30 tab famotidine 10 mg PO BID #60 tab hydrocodone-acetaminophen 1 tab PO Q6-8H PRN #9 tab PRN Reason: Acute Pain nicotine 1 patch TRANSDERMAL DAILY #30 ea pantoprazole 40 mg PO DAILY #30 tab thiamine HCl (vitamin B1) 100 mg PO DAILY #30 tab DS: Summary Hospital Course: 53-year-old male with acute hypoxic and hypercarbic respiratory failure and acute severe metabolic encephalopathy with associated multiorgan failure including renal failure and liver failure. Patient initially required intubation /ICU care. He was stabilized and transferred to medical floor for continued care. Patient was in Acute Renal Failure secondary to rhabdomyolysis from statin. Creatinine has improved 5.59 --> 3.05. CKD at baseline prior to acute injury with Baseline Cr 1.5-1.6. Patient had Dialysis started 05/27, last HD 06/21. Patient is non oliguric. Nephrology has been following the patient and recommends to avoid nephrotoxic agents. Fluid restriction has been enforced 1741-4359 mL's per day. He has no need for dialysis as his creatinine has improved. His permacath will be removed today. Follow-up with Dr. Velazquez the physical therapist clinic director and outpatient. Patient was also treated for acute hypoxic and hyperbaric respiratory failure, status post intubation and extubation. Echocardiogram with EF of 50%, suspected respiratory failure secondary to acute renal failure. Patient was weaned off oxygen and has been tolerating room air. Patient was also found to have atrial fibrillation, with NSEMI secondary to acute renal failure he was seen by waitstaff, Dr. Dior. He recommends, [id number] 1. Not good candidate for ac with noac or coumadin due to alcohol abuse, liver failure, fall risk and unstable hgb and platelet count. NSTEMI, suspect trop elevation due to arf which appears to be due to rhabdomyolysis, plain treadmill test 06/25/18 negative for ischemia. Continue Plavix. Stress test completed, no ischemia. Patient was counseled on alcohol abuse. Patient was given thiamine and multivitamins and has been counseled. LFTs are within normal. Initially, found to have acute radiculitis, rectal pain, hemorrhoids. 05/[address] showed sigmoid diverticulitis, no reported recent symptoms. Patient was given Cipro and Flagyl and has been discontinued. Gastroenterology has followed the patient and recommends rectal suppository 3 times daily and follow-up with GI on discharge. Patient found to have microcytic anemia with no evidence of bleeding. H&H is stable. Counseled for tobacco dependence. Advised to continue nicotine patch and outpatient. Patient developed rash secondary to Cipro Flagyl use, Benadryl as needed and to continue Zyrtec and Pepcid. Rashes improved. Patient has met maximal benefits of hospitalization. Clinically stable for discharge. Refer to physical therapy outpatient, PCP outpatient. Follow-up with all specialist recommendations. [place] Prescription Drug Monitoring Database has been queried and verified prior to prescribing the controlled substance. - Time Spent with Patient Total time spent providing and/or coordinating discharge services: Less than 30 minutes - Quality: VTE Deep Vein Thrombosis/Pulmonary Embolism Present on Admission: No Exam Vital signs: Vital Signs 06/28/18 12:00 06/28/18 16:00 06/28/18 20:00 Temperature 97.1 F L 98.2 F 97.9 F Pulse Rate 90 89 95 H Respiratory Rate 20 20 18 Blood Pressure 136/78 126/78 112/64 Pulse Oximetry 98 99 98 06/29/18 00:00 06/29/18 03:15 06/29/18 04:00 Temperature 97.9 F 98.0 F Pulse Rate 92 H 91 H Respiratory Rate 20 18 18 Blood Pressure 120/62 130/75 Pulse Oximetry 97 98 06/29/18 07:00 Temperature Pulse Rate Respiratory Rate 12 Blood Pressure Pulse Oximetry Intake & Output 06/28/18 06/29/18 06/29/18 18:59 06:59 18:59 Intake Total 1919 / 1919 442 / 442 240 / 240 Output Total 4 / 4 Balance 1915 / 1915 442 / 442 240 / 240 Weight 97.5 kg Intake: Oral 1919 442 / 442 240 / 240 Output: Urine 4 / 4 Other: # Voids 3 Date of Last Bowel Movement 06/27/18 06/28/18 06/29/18 Narrative: GENERAL: Well-nourished male, in NAD, sitting comfortably in chair SKIN: Warm and dry. +PermCath in right IJ. HEENT: Normocephalic, atraumatic, PERRLA. No scleral icterus. No injection or drainage. No nasal bleeding or discharge. MOM. NECK: Trachea midline. CARDIOVASCULAR: Regular rate and rhythm. S1 and S2, no murmurs, rubs, or gallops. RESPIRATORY: CTAx2 GASTROINTESTINAL: Abdomen soft, non-tender, nondistended. +BS. MUSCULOSKELETAL: Extremities without clubbing or cyanosis. Trace BL LE edema. NEUROLOGICAL: Awake and alert. No obvious cranial nerve deficits. Motor grossly within normal limits. Able to move all extremities spontaneously. Normal speech. PSYCHIATRIC: Calm and cooperative. Results Procedures completed during hospitalization: 53-year-old male with acute hypoxic and hypercarbic respiratory failure and acute severe metabolic encephalopathy with associated multiorgan failure including renal failure and liver failure. Patient initially required intubation /ICU care; he has since stabilized and transferred to hospitalist service: 06/16: No significant changes to medical plan. Renal Acute renal failure secondary to rhabdomyolysis from statin. No obstruction. Significant proteinuria. Serology negative. Mild CKD at baseline prior to acute injury. Dialysis started 05/27 -Nephrology consulted -Continue dialysis -s/p dialysis 06/16 -monitor urine output -hold Lisinopril, other nephrotoxins Respiratory Acute hypoxic and hypercarbic respiratory failure: Status post intubation and extubation. Echo with EF 50%; suspected failure from ARF - Supplemental oxygen as needed. - Breathing treatments as needed. -Dialysis as below Cardiovascular Elevated troponin Atrial fibrillation Impression: Cardiology consulted. Echo- EF 50%. [id number] 1. Determined anticoagulation risk high for multiple risks -Continue Plavix -Continue to monitor labs/platelet count Statin induced rhabdomyolysis -Ongoing hemodialysis as above. -Continue to trend CK levels. Alcohol dependence: - Off CIWA protocol. - No signs of withdrawal currently Acute liver failure Impression: Downtrending LFT's. Transaminases >1000 05/26 ----> less than 100 . - Follow LFTs. -s/p lactulose (Ammonia <10 06/04) Acute diverticulitis/rectal pain Impression: 05/26 A/P CT with sigmoid diverticulitis. no reported recent symptoms. Cipro/Flagyl stopped -Continue to monitor Rash: Probable drug reaction: Cipro and Flagyl previously discontinued. Benadryl as needed. Continue Zyrtec and Pepcid. Tobacco dependence -Nicotine patch given DVT PPX Heparin 5K U q8hrs Code Status: Full code Discharge Planning: Pending renal improvement/Nephrology recommendations Labs on day of discharge: Labs from last 24 hours 06/28/18 06/28/18 06:14 06:14 WBC 5.8 RBC 2.17 L Hgb 7.9 L Hct 23.7 L MCV 109.5 H MCH 36.5 H MCHC 33.3 RDW 15.8 Plt Count 219 MPV 8.1 Neut % (Auto) 61.4 Lymph % (Auto) 18.5 [place] % (Auto) 7.3 Eos % (Auto) 11.4 H Baso % (Auto) 1.4 Neut # (Auto) 3.6 Lymph # (Auto) 1.1 [place] # (Auto) 0.4 Eos # (Auto) 0.7 H Baso # (Auto) 0.1 WBC Differential . Differential Comment Auto diff final Sodium 141 Potassium 3.9 Chloride 103 Carbon Dioxide 27.2 Anion Gap 11 BUN 29 H Creatinine 3.05 H Estimated GFR 22 L Random Glucose 91 Calcium 8.8 Total Bilirubin 0.5 AST 35 ALT 32 Alkaline Phosphatase 86 Total Protein 7.4 Albumin 3.1 L - Impressions ITS Impressions Abdomen/Bladder Ultrasound 05/26/18 00:00 CONCLUSION: 1. Small nonobstructing right renal stone. Otherwise, unremarkable exam. Abdomen/Pelvis CT 05/26/18 10:54 CONCLUSION: 1. Sigmoid diverticulitis. 2. Hepatic steatosis. 3. Right renal calculus. Catheter Placement 05/27/18 00:00 CONCLUSION: 1. Uncomplicated line placement as above. Head CT 05/28/18 05:02 CONCLUSION: 1. No acute findings in the brain. . Chest X-Ray 05/29/18 05:00 CONCLUSION: Increasing consolidation in the left lower lung. Central Venous Line 06/02/18 00:00 CONCLUSION: 1. Uncomplicated PermaCath placement as above. Venous Doppler Study 06/24/18 00:00 CONCLUSION: 1. Negative examination with no evidence of deep venous thrombosis. 2. Prominent fatty replaced lymph node in the right groin. Discharge Plan - Discharge Disposition Patient Disposition: Discharge Home - Discharge Condition Condition: Stable - Discharge Order Discharge Orders: Discharge Order (Routine); Ordered 06/29/18 Ordered By: Concepcion Maria - Physicians Team Attending Provider: Vianey Dobbs Other Providers: Don Dior MD ; Emre Velazquez MD ; [employer], [facility] ; Harvey Menjivar MD ; Keny Cornelius MD ; Piyush Maguire MD
[2018-06-29 08:30] VITALS: BP 137/74; PULSE 94; RESP 20; TEMP 98.7; O2SAT 100
[2018-06-29] MEDS ORDERED: Lidocaine 1%/Epinephrine 1:100,000 Inj 20 ML Vial ONE (09:09)
--- NOTE | 2018-06-29 10:53 | IR ---
EXAM DATE: 06/29/2018 12:00 AM EDT AGE/SEX: 53 years / Male INDICATIONS: Patient with history of Acute Kidney Disease presents with Tunneled Dialysis catheter i n need of removal following completion of dialysis prior to discharge from hospital. CLINICAL DATA: This is the patient's subsequent encounter. Patient reports that signs and symptoms h ave been present for 1 month and indicates a pain score of 2/10. MEDICAL/SURGICAL HISTORY: Renal failure, acute. A-Fib, Anemia, BPH, Leukemia, HTN, Hyperlipidem ia, Diverticulitis, Sleep Apnea . Hernia Repair. COMPARISON: No prior exams available for comparison. IMAGE SERIES: ACCESS SITE: . . PROCEDURE: 1. PermaCath removal. The risks, benefits and alternatives to the procedure were explained and verbal and written consent w as obtained. The site was prepped in sterile fashion. Full sterile technique was used, including ca p, mask, sterile gloves and gown and a large sterile sheet. Hand hygiene and 2% chlorhexidine and/or betadine/alcohol prep was utilized per protocol for cutaneous antisepsis. The skin and subcutaneous tissues were infiltrated with local anesthetic solution. The tract was anesthetized with 1% Lidocaine using. The Permcath was dissected from the subcutaneous tissues and easily removed in one piece. Manual pressure was applied to the venotomy site until hem ostasis was obtained. Sterile dressing was applied. The patient tolerated the procedure well and there were no complications. CONCLUSION: 1. Uncomplicated Permcath removal. Electronically signed by: Viraj Carreon MD 06/29/2018 10:52 AM EDT
== END 2018-06-29 12:29 | disposition home or self-care (01) ==
LOC: NEPC 08:28 → NEDA 12:56 → N04 15:11 → N03 05-28 05:32 → N05 05-31 18:45
PROVIDERS: ADMIT Internal Medicine; ATTEND Internal Medicine